=== PATIENT | male | born 1945 | race Caucasian/White ===

== ENCOUNTER → 2016-06-01 | Outpatient (CLI) | payer MEDICARE ==
--- NOTE | 2016-06-01 09:15 | CT ---
EXAMINATION TYPE: CT abdomen pelvis wo con DATE OF EXAM: 06/01/2016 9:03 AM HISTORY: Patient having right sided pain under ribs, history of renal stones but this feels alot diff erent. Pain radiates around to back CT DLP: 1504.1 mGycm. Automated Exposure Control for Dose Reduction was Utilized. TECHNIQUE: CT scan of the abdomen and pelvis is performed without oral or IV contrast. COMPARISON: NONE FINDINGS: Within the limitations of a non-contrast study, the following observations are made. LUNG BASES: Heart size is mildly enlarged. There is partial visualization of right-sided pacemaker/de fibrillator device. LIVER/GB: Liver is diffusely low dense consistent with fatty infiltration. PANCREAS: There is some fat replaced atrophy of the pancreas noted at the head and uncinate process l evel. SPLEEN: Spleen is enlarged measuring 14.9 cm in long axis on axial image 27. 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 KIDNEYS: There is exophytic 3.1 cm low dense lesion laterally lower pole level right kidney Hounsfiel d units average between 10 and 20, suspect simple cyst, this can be confirmed with renal ultrasound d esired. No renal stones or hydronephrosis is evident bilaterally on current study. BOWEL: Evaluation of bowel is slightly suboptimal due to lack of enteric contrast. There is no suspic ious small or large bowel dilatation seen. Appendix appears somewhat truncated but not suspiciously d ilated or with surrounding inflammatory change. No significant diverticulosis or diverticulitis is se en. GENITAL ORGANS: No gross abnormality seen. LYMPH NODES: No greater than 1cm abdominal or pelvic lymph nodes are appreciated. OSSEOUS STRUCTURES: There is moderate disc space narrowing with endplate sclerosis and spurring at L3 -L4 level. Posterior spur disc complex effaces anterior thecal sac at this level. Some facet arthropa thy and disc herniations contribute to spinal canal effacement at L4-L5 level also. Focus of air bila teral sacroiliac joints are noted. OTHER: There is mild to moderate calcified atherosclerotic change of aorta and branch vessels. Mild s oft tissue anasarca or subcutaneous edema seen at level of the pelvis and thighs. IMPRESSION: No renal stones or hydronephrosis is seen bilaterally. No significant acute finding is se en to account for patient's symptoms. Other findings are noted as detailed above
== END | disposition home or self-care (01) ==
LOC: RADCTMAIN 08:44
PROVIDERS: ATTEND Internal Medicine Geriatric Medicine
DX: N20.0 Calculus of kidney (principal)
CPT/HCPCS: 74176

== ENCOUNTER 2017-03-14 15:48 | Emergency (ER) | payer MEDICARE ==
[2017-03-14 16:14] VITALS: PULSE 72
--- NOTE | 2017-03-14 16:39 | ED ---
General Adult HPI - General Chief complaint: Extremity Injury, Lower Stated complaint: [facility]Poss [facility] Time Seen by Provider: 03/14/17 16:16 Source: patient, family, RN notes reviewed Mode of arrival: wheelchair - History of Present Illness Initial comments: 71-year-old male presents to the emergency department with a chief complaint of bilateral lower extremity pain. Patient states that in the morning or at rest his legs. No pain when he gets up and starts walking by noon he can't walk anymore due to his pain. He's been to multiple doctors and specialist with the [facility] today and they sent him here to rule out a blood clot. He states that pain still he has no pain but if he went to stand up and walk around he would have pain. He denies any falls traumas or injuries. He states he did have some swelling to the left leg yesterday and over the past 2 days that has gone down at this time. He's concerned due to his continued pain he feels like he is going to all these places and no one has figured it out.Patient denies any recent fever, chills, shortness of breath, chest pain, back pain, abdominal pain , nausea vomiting, numbness or tingling, dysuria or hematuria, constipation or diarrhea, headaches or visual changes, or any other current symptoms. - Related Data Home Medications Medication Instructions Recorded Confirmed Calcium Carbonate/Vitamin D3 1 tab PO BID 12/09/14 03/14/17 [Calcium 600 + Vit D Tablet] Insulin Glargine,Hum.rec.anlog 60 unit SQ HS 12/09/14 03/14/17 [Lantus Solostar] Metoprolol Tartrate [Lopressor] 100 mg PO BID 12/09/14 03/14/17 Omeprazole [PriLOSEC] 20 mg PO AC-BRKFST 12/09/14 03/14/17 glipiZIDE [Glucotrol] 10 mg PO AC-BID 12/09/14 03/14/17 amLODIPine [Norvasc] 5 mg PO DAILY 12/31/14 03/14/17 Aspirin [Adult Low Dose Aspirin EC] 81 mg PO BID 05/04/15 03/14/17 Clopidogrel [Plavix] 75 mg PO DAILY 05/04/15 03/14/17 Allopurinol [Zyloprim] 300 mg PO DAILY 02/06/16 03/14/17 Furosemide [Lasix] 40 mg PO DAILY 02/06/16 03/14/17 Isosorbide Mononitrate ER [Imdur] 30 mg PO DAILY 02/06/16 03/14/17 Adalimumab [Humira Pen] 40 mg SQ Q14D 03/14/17 03/14/17 Atorvastatin [Lipitor] 40 mg PO HS 03/14/17 03/14/17 Hydrochlorothiazide 12.5 mg PO DAILY 03/14/17 03/14/17 Insulin Aspart [NovoLOG Flexpen] See Protocol SQ AC-TID 03/14/17 03/14/17 Losartan [Cozaar] 50 mg PO DAILY 03/14/17 03/14/17 metFORMIN HCL 1,000 mg PO BID 03/14/17 03/14/17 methylPREDNISolone Dose Pack See Taper PO DAILY 03/14/17 03/14/17 [Medrol Dose Pack] Allergies Allergy/AdvReac Type Severity Reaction Status Date / Time Sulfa (Sulfonamide AdvReac Rapid Verified 03/14/17 16:31 Antibiotics) Heart Rate/Dyspnea Review of Systems ROS Statement: Those systems with pertinent positive or pertinent negative responses have been documented in the HPI. ROS Other: All systems not noted in ROS Statement are negative. Past Medical History Past Medical History: Asthma, Coronary Artery Disease (CAD), Chest Pain / Angina , Heart Failure, COPD, CVA/TIA, Diabetes Mellitus, Eye Disorder, GERD/Reflux, Hyperlipidemia, Hypertension, Myocardial Infarction ([place]), Prostate Disorder, Rheumatoid Arthritis (RA), Sleep Apnea/CPAP/BIPAP Additional Past Medical History / Comment(s): SUDDEN 2010-REVIVED AND DEFIBRILLATOR. GOUT. STROKE BEHIND LT EYE. KIDNEY STONES. "sluggish liver". anemia, BPH. [place] x 4 , GEts choking spells when eating. "Blood clot outside of my heart", BELLS PALSY Last Myocardial Infarction Date:: 12/2014 History of Any Multi-Drug Resistant Organisms: None Reported Past Surgical History: Adenoidectomy, AICD, Heart Catheterization, Heart Catheterization With Stent, Orthopedic Surgery, Tonsillectomy Additional Past Surgical History / Comment(s): BRIAN CARPAL TUNNEL, LT ROTATOR CUFF. 4 CARDIAC STENTS Past Anesthesia/Blood Transfusion Reactions: No Reported Reaction Date of Last Stent Placement:: 12/2014 Type of Cardiac Device: AICD Device Placement Date:: 08/2010 Past Psychological History: No Psychological Hx Reported Smoking Status: Never smoker Past Alcohol Use History: None Reported Past Drug Use History: None Reported - Past Family History Father Family Medical History: Coronary Artery Disease (CAD) Additional Family Medical History / Comment(s): TRIPLE BYPASS Mother Family Medical History: Cancer, Pulmonary Embolus Additional Family Medical History / Comment(s): ENDOMETRIAL CANCER Daughter(s) Family Medical History: Cancer, Pulmonary Embolus General Exam - General Exam Comments Initial Comments: General: The patient is awake and alert, in no distress, and does not appear acutely ill. Neck: The neck is supple, there is no tenderness. Cardiovascular: There is a regular rate and rhythm. No murmur, rub or gallop is appreciated. Respiratory: Lungs are clear to auscultation, respirations are non-labored, breath sounds are equal. No wheezes, stridor, rales, or rhonchi. Musculoskeletal: Sensation intact with 2+ pulses throughout bilateral lower x- ray. Patient sensation is intact. Some tenderness with patient of the left posterior calf. Neurological: CN II-XII intact, There are no obvious motor or sensory deficits. Coordination appears grossly intact. Speech is normal. Skin: Skin is warm and dry and no rashes or lesions are noted. Psychiatric: Normal mood and affect. Course Vital Signs 03/14/17 16:08 Temperature 98 F Pulse Rate 72 Respiratory 18 Rate Blood Pressure 126/62 O2 Sat by Pulse 96 Oximetry Medical Decision Making - Medical Decision Making 71-year-old [facility]. At this time patient's ultrasound is reviewed that does not show any blood clots. Patient does have 2+ pulses to bilateral extremity. We did discuss that there is some suspicion for possible PVD causing his claudication. We did discuss needs follow-up with his doctor for this. We discussed return parameters all the questions. They stated the Saul management with this plan. This time they will be discharged. - Radiology Data Radiology results: report reviewed, image reviewed Disposition Clinical Impression: Claudication Disposition: HOME SELF-CARE Condition: Stable Instructions: Peripheral Vascular Disease (ED) Additional Instructions: Please use medication as discussed. Please follow up with family doctor if symptoms have not improved over the next two days. Please return to the emergency room if your symptoms increase or worsen or for any other concerns. Referrals: Erasmo Guevara MD [Primary Care Provider] - 1-2 days Time of Disposition: 17:10
--- NOTE | 2017-03-14 17:00 | US ---
EXAMINATION TYPE: US venous doppler duplex LE LT DATE OF EXAM: 03/14/2017 4:49 PM COMPARISON: NONE CLINICAL HISTORY: 71-year-old male with left leg pain. SIDE PERFORMED: Left TECHNIQUE: The lower extremity deep venous system is examined utilizing real time linear array sonog tato with graded compression, doppler sonography and color-flow sonography. FINDINGS: VESSELS IMAGED: External Iliac Vein (EIV) Common Femoral Vein Deep Femoral Vein Greater Saphenous Vein * Femoral Vein Popliteal Vein Small Saphenous Vein * Proximal Calf Veins (* superficial vessels) Left Leg: Negative for DVT IMPRESSION: No evidence for DVT within the left lower extremity imaged from the groin to the upper calf.
[2017-03-14 17:30] VITALS: BP 130/66; RESP 12; TEMP 97.3
== END 2017-03-14 17:34 | disposition home or self-care (01) ==
LOC: EC 15:48
DX: I73.9 Peripheral vascular disease, unspecified (principal); M79.661 Pain in right lower leg; J45.909 Unspecified asthma, uncomplicated; E11.59 Type 2 diabetes mellitus with other circulatory complications; I25.10 Atherosclerotic heart disease of native coronary artery without angina pectoris; I11.0 Hypertensive heart disease with heart failure; I50.9 Heart failure, unspecified; K21.9 Gastro-esophageal reflux disease without esophagitis; I25.2 Old myocardial infarction; M06.9 Rheumatoid arthritis, unspecified; E78.5 Hyperlipidemia, unspecified; M10.9 Gout, unspecified; Z79.02 Long term (current) use of antithrombotics/antiplatelets; Z79.4 Long term (current) use of insulin; Z79.52 Long term (current) use of systemic steroids; Z79.899 Other long term (current) drug therapy; Z79.82 Long term (current) use of aspirin; Z88.2 Allergy status to sulfonamides; Z86.73 Personal history of transient ischemic attack (TIA), and cerebral infarction without residual deficits; Z95.810 Presence of automatic (implantable) cardiac defibrillator; Z95.5 Presence of coronary angioplasty implant and graft
CPT/HCPCS: 99283

== ENCOUNTER → 2017-10-14 | Outpatient (CLI) | payer MEDICARE ==
[2017-10-14 08:58] LABS: HCT 40.3 % (39.0-53.0); HGB 13.6 gm/dL (13.0-17.5); MCH 30.4 pg (25.0-35.0); MCHC 33.8 g/dL (31.0-37.0); Mean Platelet Volume 7.6; Platelet Count 109 k/uL (150-450); RBC 4.48 m/uL (4.30-5.90); RDW 15.4 % (11.5-15.5)
[2017-10-14 09:02] LABS: INR 1.1 (<1.2); Prothrombin Time 10.4 sec (9.0-12.0)
[2017-10-14 09:34] LABS: Calcium 9.5 mg/dL (8.4-10.2); Potassium 4.2 mmol/L (3.5-5.1)
[2017-10-15 21:09] LABS: Hemoglobin A1C 8.8 % (4.0-6.0)
== END | disposition home or self-care (01) ==
LOC: LABWHC1 08:09
PROVIDERS: ATTEND Orthopaedic Surgery Adult Reconstructive Orthopaedic Surgery
DX: Z01.89 Encounter for other specified special examinations (principal)
CPT/HCPCS: 36415; 80048; 83036; 85027; 85610; 87070

== ENCOUNTER → 2017-11-15 | Outpatient (CLI) | payer MEDICARE ==
[2017-11-15 13:17] LABS: Anisocytosis Slight; HCT 38.6 % (39.0-53.0); HGB 12.8 gm/dL (13.0-17.5); MCH 30.4 pg (25.0-35.0); MCHC 33.3 g/dL (31.0-37.0); MCV 91.2 fL (80.0-100.0); Mean Platelet Volume 7.5; Platelet Count 124 k/uL (150-450); RBC 4.23 m/uL (4.30-5.90); WBC 7.4 k/uL (3.8-10.6)
[2017-11-15 13:30] LABS: Calcium 9.6 mg/dL (8.4-10.2); Potassium 4.7 mmol/L (3.5-5.1)
== END | disposition home or self-care (01) ==
LOC: LABWHC1 12:29
PROVIDERS: ATTEND Internal Medicine
DX: I50.9 Heart failure, unspecified (principal); I25.10 Atherosclerotic heart disease of native coronary artery without angina pectoris
CPT/HCPCS: 36415; 80048; 85027

== ENCOUNTER 2018-01-01 20:54 | Emergency (ER) | payer MEDICARE ==
[2018-01-01] MEDS ORDERED: PIPERACILLIN-TAZOBACTAM 3.375 GM in DEXTROSE/WATER 1 50ML.BAG IVPB STA (21:23)
[2018-01-01] MEDS ORDERED: ACETAMINOPHEN TAB 500 MG TAB PO STA (21:23)
[2018-01-01] MEDS ORDERED: VANCOMYCIN IV PER PHARMACY 1 EACH MISC MISCELLANE PRN (21:23)
--- NOTE | 2018-01-01 21:56 | ED ---
General Adult HPI - General Chief complaint: Weakness Stated complaint: Weakness, Fever Time Seen by Provider: 01/01/18 21:09 Source: patient, family Mode of arrival: EMS Limitations: no limitations, physical limitation - History of Present Illness Initial comments: 72 years old male comes in with a fever he is here is 1 or 3 and now he has a drainage from the left kidney he was operated back in September in [facility], his knee has been draining off and on since that today is quite red and has a purulent discharge. He denies any headache no neck stiffness no chest pain is now coughing up any phlegm no abdominal pain no frequency urgency dysuria no symptoms of TIA or CVA - Related Data Home Medications Medication Instructions Recorded Confirmed Calcium Carbonate/Vitamin D3 1 tab PO BID 12/09/14 01/01/18 [Calcium 600 + Vit D Tablet] Insulin Glargine,Hum.rec.anlog 65 unit SQ HS 12/09/14 01/01/18 [Lantus Solostar] Metoprolol Tartrate [Lopressor] 100 mg PO BID 12/09/14 01/01/18 Omeprazole [PriLOSEC] 20 mg PO DAILY 12/09/14 01/01/18 glipiZIDE [Glucotrol] 10 mg PO AC-BID 12/09/14 01/01/18 amLODIPine [Norvasc] 5 mg PO DAILY 12/31/14 01/01/18 Aspirin [Adult Low Dose Aspirin EC] 81 mg PO BID 05/04/15 01/01/18 Clopidogrel [Plavix] 75 mg PO DAILY 05/04/15 01/01/18 Allopurinol [Zyloprim] 300 mg PO DAILY 02/06/16 01/01/18 Furosemide [Lasix] 40 mg PO DAILY 02/06/16 01/01/18 Isosorbide Mononitrate ER [Imdur] 30 mg PO DAILY 02/06/16 01/01/18 Adalimumab [Humira Pen] 40 mg SQ Q14D 03/14/17 01/01/18 Atorvastatin [Lipitor] 40 mg PO HS 03/14/17 01/01/18 Hydrochlorothiazide 12.5 mg PO DAILY 03/14/17 01/01/18 Insulin Aspart [NovoLOG Flexpen] 7 units SQ AC-TID 03/14/17 01/01/18 Losartan [Cozaar] 50 mg PO DAILY 03/14/17 01/01/18 metFORMIN HCL 1,000 mg PO BID 03/14/17 01/01/18 Allergies Allergy/AdvReac Type Severity Reaction Status Date / Time Sulfa (Sulfonamide AdvReac Rapid Verified 01/01/18 21:05 Antibiotics) Heart Rate/Dyspnea Review of Systems ROS Statement: Those systems with pertinent positive or pertinent negative responses have been documented in the HPI. ROS Other: All systems not noted in ROS Statement are negative. Past Medical History Past Medical History: Asthma, Coronary Artery Disease (CAD), Chest Pain / Angina , Heart Failure, COPD, CVA/TIA, Diabetes Mellitus, Eye Disorder, GERD/Reflux, Hyperlipidemia, Hypertension, Myocardial Infarction ([place]), Prostate Disorder, Rheumatoid Arthritis (RA), Sleep Apnea/CPAP/BIPAP Additional Past Medical History / Comment(s): SUDDEN 2010-REVIVED AND DEFIBRILLATOR. GOUT. STROKE BEHIND LT EYE. KIDNEY STONES. "sluggish liver". anemia, BPH. [place] x 4 , GEts choking spells when eating. "Blood clot outside of my heart", BELLS PALSY Last Myocardial Infarction Date:: 12/2014 History of Any Multi-Drug Resistant Organisms: None Reported Past Surgical History: Adenoidectomy, AICD, Heart Catheterization, Heart Catheterization With Stent, Orthopedic Surgery, Tonsillectomy Additional Past Surgical History / Comment(s): BRIAN CARPAL TUNNEL, LT ROTATOR CUFF. 4 CARDIAC STENTS, (L) knee surgery. Past Anesthesia/Blood Transfusion Reactions: No Reported Reaction Date of Last Stent Placement:: 12/2014 Type of Cardiac Device: AICD Device Placement Date:: 08/2010 Past Psychological History: No Psychological Hx Reported Smoking Status: Never smoker Past Alcohol Use History: None Reported Past Drug Use History: None Reported - Past Family History Father Family Medical History: Coronary Artery Disease (CAD) Additional Family Medical History / Comment(s): TRIPLE BYPASS Mother Family Medical History: Cancer, Pulmonary Embolus Additional Family Medical History / Comment(s): ENDOMETRIAL CANCER Daughter(s) Family Medical History: Cancer, Pulmonary Embolus General Exam - General Exam Comments Initial Comments: General: The patient is awake and alert, in no distress, and does not appear acutely ill. Notice mild distress Skin: Skin is warm and dry and no rashes or lesions are noted. Eye: Pupils are equal, round and reactive to light, extra-ocular movements are intact; there is normal conjunctiva bilaterally. Ears, nose, mouth and throat: There are moist mucous membranes and no oral lesions. Neck: The neck is supple, there is no tenderness or JVD. Cardiovascular: There is a regular rate and rhythm. No murmur, rub or gallop is appreciated. Respiratory: To auscultation bilateral, no wheezing no rhonchi no distress respiratory rodriguez noticed Gastrointestinal: Soft, non-distended, non-tender abdomen without masses or organomegaly noted. There is no rebound or guarding present. Bowel sounds are unremarkable. Back: There is no tenderness to palpation in the midline. There is no obvious deformity. Musculoskeletal: Left knee has a scar from previous surgery, right over the patella there is purulent discharge oozing out and noticed about term at 10 cm diameter area of firm severe cellulitis over the patella Neurological: CN II-XII intact, Cranial nerves III through XII are intact. There are no obvious motor or sensory deficits. Coordination appears grossly intact. Speech is normal. Psychiatric: Cooperative, appropriate mood & affect, normal judgment. Limitations: no limitations, physical limitation Course Vital Signs 01/01/18 01/01/18 01/01/18 20:56 21:15 21:18 Temperature 102.9 F H Pulse Rate 100 Respiratory 18 20 20 Rate Blood Pressure 139/79 O2 Sat by Pulse 93 L Oximetry 01/01/18 01/01/18 01/02/18 21:23 23:03 00:00 Temperature 102.6 F H Pulse Rate 96 102 H 95 Respiratory 20 20 18 Rate Blood Pressure 132/66 140/68 O2 Sat by Pulse 99 99 99 Oximetry 72 years old male came in with high fever of 103 pulse 100 white count is 11.5 lactate is 2.6-6 is unremarkable urinalysis is unremarkable we did the CAT scan of the left knee as per radiology reading there is a question of either cellulitis or septic knee, these findings were discussed with the patient and the family had agreeable with a possible transfer to Hospital there surgery was done in [place]. I have paged Dr. Rodriguez at 12:30 AM who is covering Dr. Raj lal, waiting to hear back from him. Dr. lal callback at1:23 AM and advised to transfer the patient down to the ER resume the care over there EKG Findings - EKG Comments: EKG Findings:: EKGs ALLERGIES sinus ventricular rate is 92 VT interval is 178 QRS duration is 16 QT/QTC 346/332 review of this EKG does not reveal any ST elevation or ST depression Medical Decision Making - Lab Data Result diagrams: 01/01/18 21:00 01/01/18 21:00 Lab Results 01/01/18 01/01/18 01/01/18 Range/Units 21:00 21:00 21:00 WBC 11.5 H (3.8-10.6) k/uL RBC 4.00 L (4.30-5.90) m/uL Hgb 12.0 L (13.0-17.5) gm/dL Hct 35.6 L (39.0-53.0) % MCV 89.0 (80.0-100.0) fL MCH 29.9 (25.0-35.0) pg MCHC 33.5 (31.0-37.0) g/dL RDW 15.3 (11.5-15.5) % Plt Count 102 L (150-450) k/uL Neutrophils % 86 % Lymphocytes % 6 % Monocytes % 6 % Eosinophils % 1 % Basophils % 0 % Neutrophils # 9.9 H (1.3-7.7) k/uL Lymphocytes # 0.7 L (1.0-4.8) k/uL Monocytes # 0.7 (0-1.0) k/uL Eosinophils # 0.1 (0-0.7) k/uL Basophils # 0.0 (0-0.2) k/uL PT (9.0-12.0) sec INR (<1.2) APTT (22.0-30.0) sec Sodium 134 L (137-145) mmol/L Potassium 3.6 (3.5-5.1) mmol/L Chloride 98 (98-107) mmol/L Carbon Dioxide 26 (22-30) mmol/L Anion Gap 10 mmol/L BUN 22 H (9-20) mg/dL Creatinine 1.10 (0.66-1.25) mg/dL Est GFR (CKD-EPI)AfAm 78 (>60 ml/min/1.73 sqM) Est GFR (CKD-EPI)NonAf 67 (>60 ml/min/1.73 sqM) Glucose 189 H (74-99) mg/dL Lactic Ac Sepsis Rflx Plasma Lactic Acid Ameya 2.6 H* (0.7-2.0) mmol/L Calcium 9.0 (8.4-10.2) mg/dL Total Bilirubin 1.8 H (0.2-1.3) mg/dL AST 22 (17-59) U/L ALT 39 (21-72) U/L Alkaline Phosphatase 59 (38-126) U/L Total Protein 6.2 L (6.3-8.2) g/dL Albumin 3.7 (3.5-5.0) g/dL Urine Color Urine Appearance (Clear) Urine pH (5.0-8.0) Ur Specific Terry (1.001-1.035) Urine Protein (Negative) Urine Glucose (UA) (Negative) Urine Ketones (Negative) Urine Blood (Negative) Urine Nitrite (Negative) Urine Bilirubin (Negative) Urine Urobilinogen (<2.0) mg/dL Ur Leukocyte Esterase (Negative) 01/01/18 01/01/18 01/01/18 Range/Units 21:00 22:12 23:00 WBC (3.8-10.6) k/uL RBC (4.30-5.90) m/uL Hgb (13.0-17.5) gm/dL Hct (39.0-53.0) % MCV (80.0-100.0) fL MCH (25.0-35.0) pg MCHC (31.0-37.0) g/dL RDW (11.5-15.5) % Plt Count (150-450) k/uL Neutrophils % % Lymphocytes % % Monocytes % % Eosinophils % % Basophils % % Neutrophils # (1.3-7.7) k/uL Lymphocytes # (1.0-4.8) k/uL Monocytes # (0-1.0) k/uL Eosinophils # (0-0.7) k/uL Basophils # (0-0.2) k/uL PT 11.7 (9.0-12.0) sec INR 1.2 H (<1.2) APTT 32.5 H (22.0-30.0) sec Sodium (137-145) mmol/L Potassium (3.5-5.1) mmol/L Chloride (98-107) mmol/L Carbon Dioxide (22-30) mmol/L Anion Gap mmol/L BUN (9-20) mg/dL Creatinine (0.66-1.25) mg/dL Est GFR (CKD-EPI)AfAm (>60 ml/min/1.73 sqM) Est GFR (CKD-EPI)NonAf (>60 ml/min/1.73 sqM) Glucose (74-99) mg/dL Lactic Ac Sepsis Rflx Y Plasma Lactic Acid Ameya (0.7-2.0) mmol/L Calcium (8.4-10.2) mg/dL Total Bilirubin (0.2-1.3) mg/dL AST (17-59) U/L ALT (21-72) U/L Alkaline Phosphatase (38-126) U/L Total Protein (6.3-8.2) g/dL Albumin (3.5-5.0) g/dL Urine Color Yellow Urine Appearance Clear (Clear) Urine pH 5.0 (5.0-8.0) Ur Specific Terry 1.013 (1.001-1.035) Urine Protein Trace H (Negative) Urine Glucose (UA) Negative (Negative) Urine Ketones Negative (Negative) Urine Blood Negative (Negative) Urine Nitrite Negative (Negative) Urine Bilirubin Negative (Negative) Urine Urobilinogen <2.0 (<2.0) mg/dL Ur Leukocyte Esterase Negative (Negative) Disposition Clinical Impression: Fever, Cellulitis, Septic arthritis of knee Disposition: OTHER INSTITUTION NOT DEFINED Is patient prescribed a controlled substance at d/c from ED?: No Referrals: Erasmo Guevara MD [Primary Care Provider] - 1-2 days - Out of Hospital Transfer - Req. Specs Out of Hospital Transfer - Requested Specifics: Other Emergency Center (patient will be transfered to [facility], accepting physician is Dr. Gramajo)
[2018-01-01] MEDS ORDERED: VANCOMYCIN 1,750 MG in SODIUM CHLORIDE 0.9% 500 ML IVPB ONE (22:00)
[2018-01-01 22:01] LABS: INR 1.2 (<1.2); Partial Thromboplastin Time 32.5 sec (22.0-30.0); Prothrombin Time 11.7 sec (9.0-12.0)
[2018-01-01 22:07] LABS: Albumin 3.7 g/dL (3.5-5.0); Potassium 3.6 mmol/L (3.5-5.1); Total Bilirubin 1.8 mg/dL (0.2-1.3); Total Protein 6.2 g/dL (6.3-8.2)
[2018-01-01] MEDS: SODIUM CHLORIDE 0.9% 500 ML IV SCH (22:10)
[2018-01-01 22:12] LABS: Basophils % (A) 0 %; Eosinophils # (A) 0.1 k/uL (0-0.7); Eosinophils % (A) 1 %; HCT 35.6 % (39.0-53.0); Lymphocytes # (A) 0.7 k/uL (1.0-4.8); Lymphocytes % (A) 6 %; MCH 29.9 pg (25.0-35.0); MCHC 33.5 g/dL (31.0-37.0); Mean Platelet Volume 7.4; Monocytes # (A) 0.7 k/uL (0-1.0); Monocytes % (A) 6 %; Neutrophils # (A) 9.9 k/uL (1.3-7.7); Neutrophils % (A) 86 %; Platelet Count 102 k/uL (150-450); RDW 15.3 % (11.5-15.5); WBC 11.5 k/uL (3.8-10.6)
--- NOTE | 2018-01-01 22:36 | XR ---
EXAMINATION TYPE: XR chest 1V portable DATE OF EXAM: 01/01/2018 COMPARISON: 12/09/2014 HISTORY: Fever and weakness TECHNIQUE: Single frontal view of the chest is obtained. FINDINGS: Heart is enlarged. There is coarsening of interstitial pulmonary markings. There is no tommy ss heart failure. Costophrenic angles are clear. There is left axillary pacemaker with the lead tip o collette the right ventricle. IMPRESSION: Mild pulmonary fibrosis. No heart failure. Lung markings are increased compared to old e xam.
[2018-01-01 23:15] LABS: Appearance,Urine Clear (Clear); Bilirubin,Urine Negative (Negative); Blood,Urine Negative (Negative); Color,Urine Yellow; Glucose,Urine (UA) Negative (Negative); Ketones,Urine Negative (Negative); Leukocyte Esterase,Urine Negative (Negative); Nitrite,Urine Negative (Negative); Protein,Urine Trace (Negative); Specific Gravity,Urine 1.013 (1.001-1.035); Urobilinogen,Urine <2.0 mg/dL (<2.0)
--- NOTE | 2018-01-01 23:57 | CT ---
EXAMINATION TYPE: CT knee LT wo con DATE OF EXAM: 01/01/2018 COMPARISON: None HISTORY: Weakness, fever, non healing wound on left knee CT DLP: 429.5 mGycm Automated exposure control for dose reduction was used. FINDINGS: Multiple axial sections were obtained from the distal femur to the proximal tibia with no contrast. There is prosthesis in the medial compartment of the knee. There is some calcification of the lateral collateral ligament. There is moderate knee joint effusion. There are a few air bubbles in the knee joint effusion. The detail is limited somewhat by the metal artifact. I see no displaced fracture. I see no focal bone destruction. The patella is intact. There is spurring at the tibial tubercle. IMPRESSION: KNEE PROSTHESIS. MODERATE SIZE KNEE JOINT EFFUSION. THERE IS ALSO ANTERIOR SOFT TISSUE SWELLING ANTER IOR TO THE PATELLA AND PROXIMAL TIBIA WITH SOFT TISSUE AIR BUBBLES. Septic arthritis and anterior sig nificant cellulitis should be highly considered.
[2018-01-02] MEDS ORDERED: MORPHINE SULFATE 4 MG/ML SYRINGE IVP STA (01:44)
[2018-01-02 02:27] LABS: Appearance,BF Bloody; Color,BF Red; Nucleated Cells, Body Fluid 2500 /uL; RBC, Body Fluid 309000 /uL
[2018-01-02 02:32] VITALS: BP 140/85; PULSE 99; RESP 16; TEMP 101
[2018-01-02 02:36] LABS: Mononuclear WBC,Body Fluid 33 %; Polynuclear WBC,Body Fluid 67 %; Total Cells Counted,Body Fluid 100
[2018-01-02] MEDS ORDERED: VANCOMYCIN 1,750 MG in SODIUM CHLORIDE 0.9% 500 ML IVPB SCH (14:00)
== END 2018-01-02 02:25 | disposition other institution (70) ==
LOC: EC 20:54
DX: M00.862 Arthritis due to other bacteria, left knee (principal); L03.116 Cellulitis of left lower limb; J45.909 Unspecified asthma, uncomplicated; I25.10 Atherosclerotic heart disease of native coronary artery without angina pectoris; I11.0 Hypertensive heart disease with heart failure; I50.9 Heart failure, unspecified; J44.9 Chronic obstructive pulmonary disease, unspecified; E11.9 Type 2 diabetes mellitus without complications; I25.2 Old myocardial infarction; E78.5 Hyperlipidemia, unspecified; M06.9 Rheumatoid arthritis, unspecified; M10.9 Gout, unspecified; G47.30 Sleep apnea, unspecified; Z99.89 Dependence on other enabling machines and devices; Z86.73 Personal history of transient ischemic attack (TIA), and cerebral infarction without residual deficits; Z95.810 Presence of automatic (implantable) cardiac defibrillator; Z95.5 Presence of coronary angioplasty implant and graft; Z98.890 Other specified postprocedural states; Z79.4 Long term (current) use of insulin; Z79.82 Long term (current) use of aspirin; Z79.899 Other long term (current) drug therapy; Z88.2 Allergy status to sulfonamides
CPT/HCPCS: 36415; 93005; 80053; 89050; 83605; 85025; 85610; 85730; 81003; 87040; 87070; 87086; 87205; 71045; 73700; 99285; 96365; 96366 ×3; 96375; J3370; J2270; J2543

== ENCOUNTER → 2018-01-16 | Outpatient (CLI) | payer MEDICARE ==
--- NOTE | 2018-01-16 15:31 | US ---
EXAMINATION TYPE: US venous doppler duplex LE DATE OF EXAM: 01/16/2018 3:22 PM COMPARISON: NONE CLINICAL HISTORY: M79.605 Pain in LEFT leg; r/o deep vein. SIDE PERFORMED: Left TECHNIQUE: The lower extremity deep venous system is examined utilizing real time linear array sonog tato with graded compression, doppler sonography and color-flow sonography. VESSELS IMAGED: External Iliac Vein (EIV) Common Femoral Vein Deep Femoral Vein Greater Saphenous Vein * Femoral Vein Popliteal Vein Proximal Calf Veins (* superficial vessels) Left Leg: Negative for DVT IMPRESSION: 1. Left lower extremity ultrasound negative for deep venous thrombosis.
== END | disposition home or self-care (01) ==
LOC: RADUSWWP 14:18
PROVIDERS: ATTEND Internal Medicine
DX: M79.605 Pain in left leg (principal); Z88.2 Allergy status to sulfonamides

== ENCOUNTER → 2018-06-16 | Outpatient (CLI) | payer MEDICARE ==
[2018-06-16 14:56] LABS: Basophils # (A) 0.1 k/uL (0-0.2); Basophils % (A) 1 %; Eosinophils # (A) 1.5 k/uL (0-0.7); Eosinophils % (A) 15 %; HCT 39.6 % (39.0-53.0); HGB 13.5 gm/dL (13.0-17.5); Lymphocytes # (A) 1.8 k/uL (1.0-4.8); Lymphocytes % (A) 17 %; MCV 85.2 fL (80.0-100.0); Monocytes # (A) 0.5 k/uL (0-1.0); Monocytes % (A) 5 %; Neutrophils # (A) 6.1 k/uL (1.3-7.7); Neutrophils % (A) 60 %; Platelet Count 139 k/uL (150-450); RBC 4.65 m/uL (4.30-5.90); RDW 14.4 % (11.5-15.5); WBC 10.1 k/uL (3.8-10.6)
[2018-06-16 18:46] LABS: Iron Saturation 23.22 (15.00-50.00)
[2018-06-16 18:49] LABS: Anion Gap 10.6 mmol/L (4.00-12.00); Calcium 9.9 mg/dL (8.7-10.3); Carbon Dioxide 33.4 mmol/L (21.6-31.8); Phosphorus 4.4 mg/dL (2.4-5.1); Potassium 4.1 mmol/L (3.5-5.5)
[2018-06-16 18:55] LABS: Vitamin D 25 Hydroxy 23.7 ng/mL (30.0-100.0)
[2018-06-16 19:03] LABS: Parathyroid Hormone Intact 100.6 pg/mL (14.0-72.0)
[2018-06-16 22:25] LABS: Total Protein,Urine Random 4.1 mg/dL (0.0-13.5)
== END ==
LOC: LABWHC1 13:28
PROVIDERS: ATTEND Internal Medicine Nephrology
DX: N17.9 Acute kidney failure, unspecified (principal); N18.3 Chronic kidney disease, stage 3 (moderate); I12.9 Hypertensive chronic kidney disease with stage 1 through stage 4 chronic kidney disease, or unspecified chronic kidney disease; E66.9 Obesity, unspecified; M00.9 Pyogenic arthritis, unspecified; I50.9 Heart failure, unspecified; E11.22 Type 2 diabetes mellitus with diabetic chronic kidney disease; E61.1 Iron deficiency
CPT/HCPCS: 36415; 80048; 82306; 82570; 82728; 83540; 83550; 83735; 83970; 84100; 84156; 84466; 85025

== ENCOUNTER → 2019-03-23 | Outpatient (CLI) | payer MEDICARE ==
[2019-03-23 11:01] LABS: HCT 37.5 % (39.0-53.0); HGB 12.7 gm/dL (13.0-17.5); MCH 29.7 pg (25.0-35.0); MCV 87.4 fL (80.0-100.0); Mean Platelet Volume 6.3; Platelet Count 147 k/uL (150-450); Poikilocytosis Slight; RBC 4.29 m/uL (4.30-5.90); RDW 15.5 % (11.5-15.5); WBC 6.3 k/uL (3.8-10.6)
[2019-03-23 11:02] LABS: Potassium 4.4 mmol/L (3.5-5.1)
== END | disposition home or self-care (01) ==
LOC: LABWHC1 09:14
PROVIDERS: ATTEND Internal Medicine Interventional Cardiology
DX: Z01.812 Encounter for preprocedural laboratory examination (principal); I25.118 Atherosclerotic heart disease of native coronary artery with other forms of angina pectoris
CPT/HCPCS: 36415; 80051; 82565; 84520; 85027

== ENCOUNTER 2019-03-24 06:49 | Inpatient (IN) | payer MEDICARE ==
[~2019-03-24 06:49] MED LIST: ALPRAZolam 0.25 MG TAB PO PRN; ALPRAZolam 0.5 MG TAB PO PRN; SODIUM CHLORIDE 0.9% 1,000 ML in EMPTY BAG 1 BAG IV ONE
[2019-03-24] MEDS ORDERED: ASPIRIN 325 MG TAB PO ONE (07:00)
[2019-03-24] MEDS ORDERED: ATORVASTATIN 80 MG TAB PO ONE (07:00)
[2019-03-24 07:20] LABS: Glucose,Whole Blood 194 mg/dL (75-99)
[2019-03-24] MEDS ORDERED: METOPROLOL TARTRATE 50 MG TAB PO STA (07:29)
[2019-03-24] MEDS ORDERED: LOSARTAN 50 MG TAB PO STA (07:30)
[2019-03-24] MEDS ORDERED: ISOSORBIDE MONONITRATE ER 30 MG TAB.ER.24H PO STA (07:31)
[2019-03-24] MEDS ORDERED: VERAPAMIL 2.5 MG/ML 2 ML AMP ONE (13:03)
[2019-03-24] MEDS ORDERED: LIDOCAINE 1% INJ 10MG/ML (20 ML MDV) ONE (13:03)
[2019-03-24] MEDS ORDERED: HEPARIN SODIUM 1,000 UN/ML (10ML VL) ONE (13:03)
[2019-03-24] MEDS: LIDOCAINE 1% INJ 10MG/ML (20 ML MDV) SQ ONE ×2 (13:17→13:21)
[2019-03-24] MEDS ORDERED: MIDAZOLAM 2 MG/2 ML VIAL IVP ONE ×2 (13:18)
[2019-03-24] MEDS: VERAPAMIL SYRINGE (5 MG/10 ML) INTRAARTER ONE ×2 (13:23→13:44)
[2019-03-24] MEDS ORDERED: VERAPAMIL SYRINGE (5 MG/10 ML) INTRAARTER ONE (13:23)
[2019-03-24] MEDS ORDERED: HEPARIN SODIUM 1,000 UN/ML (10ML VL) IV ONE (13:25)
[2019-03-24] MEDS ORDERED: IOPAMIDOL-370 125ML BTL INJ ONE (13:45)
--- NOTE | 2019-03-24 15:29 | P.GSCN ---
<Sushila Loo - Last Filed: 03/24/19 15:21> History of Present Illness Consult date: 03/24/19 Reason for Consult: Triple-vessel coronary artery disease, evaluate for coronary artery bypass graft surgery versus complex stenting Requesting physician: Suki Hinds History of present illness: This is a 73-year-old gentleman who follows on an outpatient basis with Dr. Guevara. He has a previous medical history of coronary artery disease and myocardial infarction with multiple stents placed to the RCA and LAD, V. fib arrest after stenting in 2010 with placement of Medtronic ICD, hypertension, hyperlipidemia, type 2 diabetes mellitus, chronic kidney disease, paroxysmal atrial fibrillation on chronic Eliquis for anticoagulation, COPD with chronic bronchitis, obstructive sleep apnea with home CPAP use, obesity, knee replacement with infection postoperatively, and family history of heart disease. Apparently throughout the summer he has noticed increasing shortness of breath. He was seen in the cardiology office in December 2018 and had a Lexiscan scan stress test which did not appear to demonstrate any ischemia. In the last 3-4 weeks he began to experience intermittent substernal chest pain with radiation to his arms. He denied any other aggravating or alleviating symptoms. He was recommended to undergo heart catheterization which was completed today and which demonstrated proximal LAD stenosis 60%, mid LAD stenosis 30%, circumflex stenosis 90%, and RCA stenosis 60%. No LV gram was performed. Dr. Parker from cardiothoracic surgery was consulted for recommendations for cardiac bypass surgery versus complex stenting. Review of Systems Review of systems was completed and was negative except as noted. - Cardiovascular Reports as per HPI, Reports chest pain, Reports decreased exercise tolerance, Reports dyspnea on exertion, Reports shortness of breath Past Medical History Past Medical History: Atrial Fibrillation, Asthma, Coronary Artery Disease (CAD), Chest Pain / Angina, Heart Failure, COPD, Diabetes Mellitus, GERD/Reflux, Hyperlipidemia, Hypertension, Myocardial Infarction (ME), Osteoarthritis (OA), Prostate Disorder, Pulmonary Embolus (PE), Renal Disease, Skin Disorder, Sleep Apnea/CPAP/BIPAP Additional Past Medical History / Comment(s): SUDDEN 2010-REVIVED AND DEFIBRILLATOR. GOUT. , PSORIASIS, MEDTRONIC AICD., STROKE BEHIND LT EYE. KIDNEY STONES. , STAGE 3 KIDNEY DISEASE., ANEMIA, BPH, ME x 4 , "Blood clot outside of my heart", BELLS PALSY, NEUROPATHY, STATES UNSTEADY GAIT- USES CANE PRN., USES C-PAP MACHINE, PSORIATIC ARTHRITIS, STATES EPISODE OF A-FIB AFTER KNEE SURGERY., STATES HE DROPPED WRENCH ON FOOT -HAS RED SPOT AND SOME PAIN., HX V-TACH., SEE CARDIOLOGY H & P. Last Myocardial Infarction Date:: 12/2014 History of Any Multi-Drug Resistant Organisms: None Reported Past Surgical History: Adenoidectomy, AICD, Heart Catheterization, Heart Catheterization With Stent, Orthopedic Surgery, Tonsillectomy Additional Past Surgical History / Comment(s): BRIAN CARPAL TUNNEL, LT ROTATOR CUFF. 4 CARDIAC STENTS, (L) knee surgery WITH SEPSIS AND 2ND SURGERY., MEDTRO JOE AICD Past Anesthesia/Blood Transfusion Reactions: No Reported Reaction Date of Last Stent Placement:: 12/2014 Type of Cardiac Device: AICD Device Placement Date:: 08/2010 Past Psychological History: Depression Smoking Status: Never smoker Past Alcohol Use History: None Reported Additional Past Alcohol Use History / Comment(s): . Past Drug Use History: None Reported - Past Family History Father Family Medical History: Coronary Artery Disease (CAD) Additional Family Medical History / Comment(s): TRIPLE BYPASS Mother Family Medical History: Cancer, Hypertension, Pulmonary Embolus Additional Family Medical History / Comment(s): ENDOMETRIAL CANCER Daughter(s) Family Medical History: Cancer, Pulmonary Embolus Medications and Allergies Home Medications Medication Instructions Recorded Confirmed Type Calcium Carbonate/Vitamin D3 1 tab PO BID 12/09/14 03/24/19 History [Calcium 600 + Vit D Tablet] Insulin Glargine,Hum.rec.anlog 56 unit SQ QAM 12/09/14 03/24/19 History [Lantus Solostar] Metoprolol Tartrate [Lopressor] 100 mg PO BID 12/09/14 03/24/19 History Omeprazole [PriLOSEC] 20 mg PO DAILY 12/09/14 03/24/19 History Furosemide [Lasix] 40 mg PO BID 02/06/16 03/24/19 History Isosorbide Mononitrate ER [Imdur] 30 mg PO BID 02/06/16 03/24/19 History Atorvastatin [Lipitor] 40 mg PO HS 03/14/17 03/24/19 History Hydrochlorothiazide 12.5 mg PO DAILY 03/14/17 03/24/19 History Insulin Aspart [NovoLOG Flexpen] 18 units SQ AC-TID 03/14/17 03/24/19 History Losartan [Cozaar] 50 mg PO DAILY 03/14/17 03/24/19 History Allopurinol [Zyloprim] 100 mg PO BID 03/20/19 03/24/19 History Apixaban [Eliquis] 2.5 mg PO BID 03/20/19 03/24/19 History Colchicine 0.6 mg PO DAILY 03/20/19 03/24/19 History Dulaglutide [Trulicity] 1.5 mg SQ WEEKLY 03/20/19 03/24/19 History Magnesium 400 mg PO DAILY 03/20/19 03/24/19 History Metoprolol Tartrate [Lopressor] 50 mg PO DAILY@1200 03/20/19 03/24/19 History Nitroglycerin Sl Tabs [Nitrostat] 0.4 mg SUBLINGUAL Q5M PRN 03/20/19 03/24/19 History Tamsulosin HCl [Flomax] 0.4 mg PO DAILY 03/20/19 03/24/19 History Turmeric Root Extract [Turmeric] 1,000 mg PO DAILY 03/20/19 03/24/19 History Allergies Allergy/AdvReac Type Severity Reaction Status Date / Time gabapentin AdvReac Unknown DREAMS, Verified 03/20/19 09:54 PERSONALITY CHANGES- ANGER Sulfa (Sulfonamide AdvReac Rapid Verified 03/20/19 09:53 Antibiotics) Heart Rate/Dyspnea Surgical - Exam Vital Signs Temp Pulse Resp BP Pulse Ox 98.1 F 96 16 136/69 96 03/24/19 07:15 03/24/19 07:15 03/24/19 07:15 03/24/19 07:15 03/24/19 07:15 - General well developed, well nourished, no distress, no pain, obese - Eyes PERRL, normal ocular movement - ENT no hearing loss - Neck no masses, no bruits, trachea midline - Respiratory Lungs sounds clear bilaterally. Respirations even, nonlabored. Currently on room air with oxygen saturation 98%. No chest wall deformities. No clinical or cyanosis present. - Cardiovascular S1, S2 present. Regular rate and rhythm, sinus rhythm on telemetry. Palpable peripheral pulses bilaterally. No edema present. No calf pain or tenderness noted. Right radial heart catheterization site without redness or drainage, T- Band in place. - Abdomen Abdomen: soft, non tender, bowel sounds - Genitourinary Deferred - Rectum Deferred - Integumentary Lower extremities with evidence of venous insufficiency no rash, no growths - Neurologic normal coordination, normal sensation - Musculoskeletal normal posture - Psychiatric oriented to time, oriented to person, oriented to place, speech is normal, memory intact Results - Labs Abnormal Lab Results - Last 24 Hours (Table) 03/24/19 Range/Units 07:17 POC Glucose (mg/dL) 194 H (75-99) mg/dL - Imaging Additional studies: Heart catheterization films reviewed with Dr. Hinds Assessment and Plan Assessment: 1. Triple-vessel coronary artery disease 2. History of coronary artery disease and myocardial infarction with multiple stents to the RCA and LAD 3. V. fib arrest after stenting in 2010 with placement of Medtronic ICD 4. Hypertension 5. Hyperlipidemia 6. Type 2 diabetes mellitus 7. Chronic kidney disease 8. Paroxysmal atrial fibrillation on chronic Eliquis for anticoagulation 9. COPD 10. SUSAN with home CPAP use 11. Obesity 12. Family history of heart disease Plan: The patient was seen and examined at the bedside. Chart/diagnostics were review ed. Heart catheterization films were reviewed with Dr. Hinds. Patient's information was sent to Dr. Parker who will see the patient tomorrow. The usual perioperative course for open-heart surgery was discussed in detail with the patient, risks and benefits were reviewed, all questions were answered. We will initiate preoperative testing. Based on those results we will calculate an STS risk score and discuss this with the patient. We recommend continuing to maximize medical therapy with statin, beta cely, nitrate, and ARB. Medical management of other comorbidities per primary care service. More recommendations to follow once testing has been completed. Thank you Dr. Hinds for this consult. We look forward to working with you in the care of your patient. Time with Patient: Greater than 30 <Remington Parker - Last Filed: 03/25/19 12:29> Surgical - Exam Vital Signs Temp Pulse Resp BP Pulse Ox 98.1 F 96 16 136/69 96 03/24/19 07:15 03/24/19 07:15 03/24/19 07:15 03/24/19 07:15 03/24/19 07:15 Results - Labs 03/25/19 06:42 03/25/19 06:42 Abnormal Lab Results - Last 24 Hours (Table) 03/24/19 03/24/19 03/25/19 Range/Units 16:40 20:27 06:33 RBC (4.30-5.90) m/uL Hgb (13.0-17.5) gm/dL Hct (39.0-53.0) % Plt Count (150-450) k/uL APTT (22.0-30.0) sec BUN (9-20) mg/dL Creatinine (0.66-1.25) mg/dL Glucose (74-99) mg/dL POC Glucose (mg/dL) 165 H 217 H 176 H (75-99) mg/dL Triglycerides (<150) mg/dL HDL Cholesterol (40-60) mg/dL 03/25/19 03/25/19 03/25/19 Range/Units 06:42 06:42 06:42 RBC 3.98 L (4.30-5.90) m/uL Hgb 11.9 L (13.0-17.5) gm/dL Hct 34.7 L (39.0-53.0) % Plt Count 104 L (150-450) k/uL APTT 32.4 H (22.0-30.0) sec BUN 33 H (9-20) mg/dL Creatinine 1.71 H (0.66-1.25) mg/dL Glucose 166 H (74-99) mg/dL POC Glucose (mg/dL) (75-99) mg/dL Triglycerides 366 H (<150) mg/dL HDL Cholesterol 21 L (40-60) mg/dL 03/25/19 Range/Units 11:41 RBC (4.30-5.90) m/uL Hgb (13.0-17.5) gm/dL Hct (39.0-53.0) % Plt Count (150-450) k/uL APTT (22.0-30.0) sec BUN (9-20) mg/dL Creatinine (0.66-1.25) mg/dL Glucose (74-99) mg/dL POC Glucose (mg/dL) 139 H (75-99) mg/dL Triglycerides (<150) mg/dL HDL Cholesterol (40-60) mg/dL Diabetes panel 03/25/19 Range/Units 06:42 Sodium 139 (137-145) mmol/L Potassium 4.2 (3.5-5.1) mmol/L Chloride 102 (98-107) mmol/L Carbon Dioxide 28 (22-30) mmol/L BUN 33 H (9-20) mg/dL Creatinine 1.71 H (0.66-1.25) mg/dL Glucose 166 H (74-99) mg/dL Calcium 9.6 (8.4-10.2) mg/dL AST 26 (17-59) U/L ALT 36 (21-72) U/L Alkaline Phosphatase 85 (38-126) U/L Total Protein 6.6 (6.3-8.2) g/dL Albumin 3.9 (3.5-5.0) g/dL Triglycerides 366 H (<150) mg/dL HDL Cholesterol 21 L (40-60) mg/dL Thyroid panel 03/25/19 Range/Units 06:42 TSH 2.440 (0.465-4.680) mIU/L Calcium panel 03/25/19 Range/Units 06:42 Calcium 9.6 (8.4-10.2) mg/dL Albumin 3.9 (3.5-5.0) g/dL Pituitary panel 03/25/19 Range/Units 06:42 Sodium 139 (137-145) mmol/L Potassium 4.2 (3.5-5.1) mmol/L Chloride 102 (98-107) mmol/L Carbon Dioxide 28 (22-30) mmol/L BUN 33 H (9-20) mg/dL Creatinine 1.71 H (0.66-1.25) mg/dL Glucose 166 H (74-99) mg/dL Calcium 9.6 (8.4-10.2) mg/dL TSH 2.440 (0.465-4.680) mIU/L Adrenal panel 03/25/19 Range/Units 06:42 Sodium 139 (137-145) mmol/L Potassium 4.2 (3.5-5.1) mmol/L Chloride 102 (98-107) mmol/L Carbon Dioxide 28 (22-30) mmol/L BUN 33 H (9-20) mg/dL Creatinine 1.71 H (0.66-1.25) mg/dL Glucose 166 H (74-99) mg/dL Calcium 9.6 (8.4-10.2) mg/dL Total Bilirubin 0.7 (0.2-1.3) mg/dL AST 26 (17-59) U/L ALT 36 (21-72) U/L Alkaline Phosphatase 85 (38-126) U/L Total Protein 6.6 (6.3-8.2) g/dL Albumin 3.9 (3.5-5.0) g/dL Assessment and Plan Plan: The patient was seen and examined. The history and physical findings were verified. I agree with the above assessment and plan. The patient is a 73-year-old male with a history of multiple medical problems including significant coronary artery disease status post multiple coronary stents in the past. He presents to the hospital now with intermittent chest pain and shortness of breath. Cardiac catheterization performed yesterday reveals a tight proximal circumflex artery lesion. There is also question of a proximal LAD lesion associated with a coronary stent. The films were reviewed with Dr. Hinds. He will plan on performing IVUS/FFR in the morning. If the LAD lesion proves to be significant, we will work him up for possible coronary artery bypass surgery. If the LAD lesion is not significant, then he will proceed with PCI to the circumflex artery. I did speak at length with both the patient and his at length today. All of their questions were answered. Additional recommendations will follow.
--- NOTE | 2019-03-24 15:42 | XR ---
EXAMINATION TYPE: XR chest 2V DATE OF EXAM: 03/24/2019 COMPARISON: 01/01/2018 HISTORY: Preoperative cardiac surgery assessment. TECHNIQUE: Frontal and lateral views of the chest are obtained. FINDINGS: There is no focal air space opacity, pleural effusion, or pneumothorax seen. Flattening o f the diaphragms on the lateral view indicates underlying COPD. The cardiac silhouette size is enlarg ed with single lead left-sided cardiac defibrillator. The osseous structures are intact. IMPRESSION: No acute cardiopulmonary process. Underlying COPD as there is flattening of the diaphrag ms on the lateral view.
[2019-03-24 16:47] LABS: Glucose,Whole Blood 165 mg/dL (75-99)
[2019-03-24] MEDS: SODIUM CHLORIDE 0.9% 1,000 ML IV SCH (16:58)
[2019-03-24] MEDS: INSULIN ASPART (NovoLOG) 100 UNIT/ML VIAL SQ SCH ×2 (16:59→21:12)
--- NOTE | 2019-03-24 17:14 | US ---
EXAMINATION TYPE: US carotid duplex BILAT DATE OF EXAM: 03/24/2019 COMPARISON: NONE CLINICAL HISTORY: Pre-Op Cardiac Surgery. pre op cardiac surgery EXAM MEASUREMENTS: RIGHT: Peak Systolic Velocity (PSV) cm/sec ----- Right CCA: 70.3 ----- Right ICA: 91.2 ----- Right ECA: 75.7 ICA/CCA ratio: 1.3 RIGHT: End Diastole cm/sec ----- Right CCA: 14.2 ----- Right ICA: 12.9 ----- Right ECA: 8.7 LEFT: Peak Systolic Velocity (PSV) cm/sec ----- Left CCA: 74.9 ----- Left ICA: 89.2 ----- Left ECA: 93.1 ICA/CCA ratio: 1.2 LEFT: End Diastole cm/sec ----- Left CCA: 18.0 ----- Left ICA: 19.3 ----- Left ECA: 7.6 VERTEBRALS (direction of flow): Right Vertebral: Antegrade Left Vertebral: Antegrade Rhythm: Normal IMPRESSION: MILD PLAQUE BILATERAL BIFURCATIONS, BUT NO SIGNIFICANT STENOSIS
[2019-03-24 20:28] LABS: Glucose,Whole Blood 217 mg/dL (75-99)
--- NOTE | 2019-03-24 20:52 | CC ---
CARDIAC CATHETERIZATION REPORT DATE OF SERVICE: 03/24/2019 PROCEDURE: Left heart catheterization and coronary angiography. PERFORMED BY: Dr. Tim Hinds. Moderate conscious sedation time was 37 minutes. CLINICAL INFORMATION: Mr. Rafal Muro is a 73-year-old obese gentleman with type 2 diabetes, hypertension, hyperlipidemia, degenerative joint disease, previous inferior AR with RCA occlusion and stenting. He has multivessel stenting and chronic CKD with a creatinine that runs in the range of 2.2. Because of significant symptoms of angina, I recommended coronary angiography after due discussion. He was brought in early, hydrated both orally and intravenously, and brought in for the procedure. PROCEDURE NOTE: Under local anesthesia and strict aseptic precautions, a 6-Omani introducer was placed in the right radial artery. Using initially a JR4 and a JL3.5, I performed coronary angiography. Using the same right catheter, I checked LV pressures. JL3.5 was insufficient; switched over to a JL4. LV gram was not performed but LV pressures were checked. CARDIAC CATHETERIZATION FINDINGS: Left ventricular end-diastolic pressure was 12 mmHg without any gradient across the aortic valve. CORONARY ANGIOGRAPHY FINDINGS: RIGHT CORONARY ARTERY: Very dominant vessel that was previously totally occluded with stents in the proximal and mid and also in the PLV branch performed a few years ago. Now patient has a 60% lesion in the proximal RCA. Distally after bifurcation PLV is larger, has minor diffuse disease, and the distal RCA that was stented is patent. The PDA branch is smaller, has no significant disease other than diffuse irregularities, but the ostium of the PDA has about a 50% narrowing. There is a stent in the distal RCA before bifurcation which is patent. Proximal RCA has about a 55% to 60% lesion. LEFT MAIN CORONARY ARTERY: Long patent vessel that immediately bifurcates into LAD and circumflex. Left main itself may not have significant disease. LEFT ANTERIOR DESCENDING CORONARY ARTERY: Proximal LAD that was stented seems to be patent, but just before the stented segment there is an eccentric area of narrowing of up to 60% to 65%. Beyond the stented segment, LAD is free of significant disease. It gives off a diagonal branch that has no significant disease, and both of these vessels run all the way, supplying a fair amount of myocardium. LAD proximally has about a 60% eccentric lesion, best seen in cranial projection. LEFT POSTERIOR CIRCUMFLEX CORONARY ARTERY: Nondominant vessel has an ostial lesion of about 90%, mid lesion of about 70%, and distally it continues as a large obtuse marginal branch which is graftable and free of significant disease. LEFT VENTRICULOGRAM was not performed. FINAL IMPRESSION: This patient has progression of disease with proximal RCA of about 60%, ostial circumflex 90%, mid circumflex 70%, and proximal LAD 60% just before the stented segment. The distal RCA was grafted, but both branches are of fair caliber. LV filling pressures are normal and there is no gradient across the aortic valve. LV gram was not performed. RECOMMENDATIONS: I am recommending that I will obtain a surgical opinion today and see if the surgeon feels the anatomy is significant. Given the calcification, previous stenting and renal failure, he is a high risk for both percutaneous as well as surgical intervention. I will await opinion from cardiac surgeon, and in the meantime I will hydrate him and check another renal function tomorrow. For now, we will pursue medical therapy, seek surgical opinion. If the surgeon feels that LAD lesions and RCA lesions are not significant, I will perform circumflex PCI. Otherwise he will be much better with multivessel bypass surgery with 2 grafts to the LAD, one graft to the circumflex and 2 grafts to the branches of RCA. Findings were discussed at length with the patient, and a copy of this will go to his primary care physician. Dr Guevara. [email or web address] / ANNA: [id number] /
[2019-03-24] MEDS ORDERED: INSULIN ASPART (NovoLOG) 100 UNIT/ML VIAL SQ SCH (21:00)
[2019-03-24] MEDS: CALCIUM CARB-VIT D 500MG-200UN 1 EACH TAB PO SCH (21:10)
[2019-03-24] MEDS: METOPROLOL TARTRATE 50 MG TAB PO SCH (21:11)
[2019-03-24] MEDS: ALLOPURINOL 100 MG TAB PO SCH (21:11)
[2019-03-25 03:51] LABS: Appearance,Urine Clear (Clear); Bilirubin,Urine Negative (Negative); Blood,Urine Negative (Negative); Color,Urine Light Yellow; Glucose,Urine (UA) Negative (Negative); Ketones,Urine Negative (Negative); Leukocyte Esterase,Urine Negative (Negative); Nitrite,Urine Negative (Negative); Protein,Urine Negative (Negative); Specific Gravity,Urine 1.015 (1.001-1.035); Urobilinogen,Urine <2.0 mg/dL (<2.0)
[2019-03-25] MEDS: SODIUM CHLORIDE 0.9% 1,000 ML IV SCH ×2 (05:16→16:54)
[2019-03-25 06:34] LABS: Glucose,Whole Blood 176 mg/dL (75-99)
[2019-03-25] MEDS: INSULIN ASPART (NovoLOG) 100 UNIT/ML VIAL SQ SCH ×4 (07:47→20:34)
[2019-03-25 07:48] LABS: INR 0.9 (<1.2); Partial Thromboplastin Time 32.4 sec (22.0-30.0); Prothrombin Time 10.1 sec (9.0-12.0)
[2019-03-25] MEDS: PANTOPRAZOLE 40 MG TABLET PO SCH (07:48)
[2019-03-25] MEDS: ISOSORBIDE MONONITRATE ER 30 MG TAB.ER.24H PO SCH (07:48)
[2019-03-25] MEDS: TAMSULOSIN 0.4 MG CAP.ER.24H PO SCH (07:48)
[2019-03-25] MEDS: LOSARTAN 50 MG TAB PO SCH (07:48)
[2019-03-25] MEDS: METOPROLOL TARTRATE 50 MG TAB PO SCH ×2 (07:48→20:34)
[2019-03-25] MEDS: ALLOPURINOL 100 MG TAB PO SCH ×2 (07:48→20:34)
[2019-03-25] MEDS: CALCIUM CARB-VIT D 500MG-200UN 1 EACH TAB PO SCH ×2 (07:48→20:34)
[2019-03-25] MEDS: MAGNESIUM OXIDE 400 MG TAB PO SCH (07:48)
[2019-03-25] MEDS: ATORVASTATIN 40 MG TAB PO SCH (07:48)
[2019-03-25 07:56] LABS: Albumin 3.9 g/dL (3.5-5.0); Calcium 9.6 mg/dL (8.4-10.2); Magnesium 2.2 mg/dL (1.6-2.3); Potassium 4.2 mmol/L (3.5-5.1); Total Bilirubin 0.7 mg/dL (0.2-1.3); Total Protein 6.6 g/dL (6.3-8.2)
[2019-03-25 08:10] LABS: Basophils % (A) 1 %; Eosinophils # (A) 0.2 k/uL (0-0.7); Eosinophils % (A) 4 %; HCT 34.7 % (39.0-53.0); HGB 11.9 gm/dL (13.0-17.5); Lymphocytes # (A) 1.1 k/uL (1.0-4.8); Lymphocytes % (A) 24 %; MCHC 34.4 g/dL (31.0-37.0); MCV 87.3 fL (80.0-100.0); Mean Platelet Volume 6.5; Monocytes # (A) 0.3 k/uL (0-1.0); Monocytes % (A) 7 %; Neutrophils % (A) 63 %; Platelet Count 104 k/uL (150-450); Poikilocytosis Slight; RBC 3.98 m/uL (4.30-5.90); RDW 15.3 % (11.5-15.5); WBC 4.8 k/uL (3.8-10.6)
[2019-03-25] MEDS ORDERED: COLCHICINE 0.6 MG EACH PO SCH (09:00)
[2019-03-25] MEDS ORDERED: NON FORMULARY DRUG (Omeprazole [Prilosec] 20 MG) PO SCH (09:00)
[2019-03-25] MEDS ORDERED: ASPIRIN 81 MG PO SCH (09:00)
[2019-03-25] MEDS ORDERED: INSULIN DETEMIR (LEVEMIR) 100 UNIT/ML SYR SQ SCH (09:00)
[2019-03-25] MEDS ORDERED: TURMERIC ROOT EXTRACT 1000 MG PO SCH (09:00)
[2019-03-25 11:19] LABS: Hepatitis A Antibody IgM Non-Reactive (Non-Reactive); Hepatitis B Core IgM Non-Reactive (Non-Reactive); Hepatitis B Surface Antigen Non-Reactive (Non-Reactive); Hepatitis C IgG Antibody Non-Reactive (Non-Reactive)
--- NOTE | 2019-03-25 11:25 | ECHOF ---
Referral Reason:eval valves for open heart MEASUREMENTS -------- HEIGHT: 170.2 cm WEIGHT: 104.3 kg BP: IVSd: 1.5 cm (0.6 - 1.1) LVIDd: 5.5 cm (3.9 - 5.3) LVPWd: 1.3 cm (0.6 - 1.1) IVSs: 1.7 cm LVIDs: 4.2 cm LVPWs: 1.6 cm LAESV Index (A-L): 19.02 ml/m Ao Diam: 2.9 cm (2.0 - 3.7) AV Cusp: 1.5 cm (1.5 - 2.6) LA Diam: 3.1 cm (2.7 - 3.8) MV EXCURSION: 15.119 mm (> 18.000) MV EF SLOPE: 28 mm/s (70 - 150) EPSS: 2.8 cm MV E Miki: 0.70 m/s MV DecT: 211 ms MV A Miki: 0.96 m/s MV E/A Ratio: 0.73 AV maxP.14 mmHg AV meanP.42 mmHg RAP: 5.00 mmHg RVSP: 8.53 mmHg TAPSE: 26.03 mm FINDINGS -------- Sinus rhythm. This was a technically difficult study with suboptimal views. The left ventricular size is normal. There is moderate concentric left ventricular hypertrophy. O verall left ventricular systolic function is mild-moderately impaired with, an EF between 40 - 45 %. Normal LAP. Grade 1 Diastolic Dysfunction. Basal inferior LV wall motion is hypokinetic. Basal inferoseptal LV wall motion is hypokinetic. Mid inferior LV wall motion is hypokinetic. The right ventricle is normal in size. The right ventricular systolic function is normal. The left atrial size is normal. Normal LA size by volume 22+/-6 ml/m2. The right atrial size is normal. 5.0mg of Lumason was utilized for enhancement of images IAS not well Visualized. Aortic valve is trileaflet and is mildly thickened. There is mild aortic valve sclerosis. Peak/me an gradient across the Aortic Valve is 11.14mmHg / 7.42mmHg. The mitral valve is normal. The mitral valve leaflets are mildly thickened. There is trace mitral regurgitation. The tricuspid valve appears structurally normal. Trace tricuspid regurgitation present. Right ti tricular systolic pressure is normal at < 35 mmHg. There is no pulmonic regurgitation present. The aortic root size is normal. IVC Not well visulized. There is no pericardial effusion. CONCLUSIONS -------- 1. Sinus rhythm. 2. This was a technically difficult study with suboptimal views. 3. The left ventricular size is normal. 4. There is moderate concentric left ventricular hypertrophy. 5. Normal LAP. Grade 1 Diastolic Dysfunction. 6. Basal inferior LV wall motion is hypokinetic. 7. Basal inferoseptal LV wall motion is hypokinetic. 8. Mid inferior LV wall motion is hypokinetic. 9. The right ventricle is normal in size. 10. The right ventricular systolic function is normal. 11. The left atrial size is normal. 12. Normal LA size by volume 22+/-6 ml/m2. 13. The right atrial size is normal. 14. 5.0mg of Lumason was utilized for enhancement of images 15. IAS not well Visualized. 16. Aortic valve is trileaflet and is mildly thickened. 17. There is mild aortic valve sclerosis. 18. Peak/mean gradient across the Aortic Valve is 11.14mmHg / 7.42mmHg. 19. The mitral valve is normal. 20. The mitral valve leaflets are mildly thickened. 21. There is trace mitral regurgitation. 22. The tricuspid valve appears structurally normal. 23. Trace tricuspid regurgitation present. 24. Right ventricular systolic pressure is normal at < 35 mmHg. 25. There is no pulmonic regurgitation present. 26. The aortic root size is normal. 27. IVC Not well visulized. 28. There is no pericardial effusion. BROADCAST TRANSMITTER OPERATOR: Sushila Turner RDCS
[2019-03-25 11:43] LABS: Glucose,Whole Blood 139 mg/dL (75-99)
--- NOTE | 2019-03-25 12:32 | P.PN ---
Subjective Progress Note Date: 03/25/19 Principal diagnosis: Triple-vessel coronary artery disease with history of coronary artery disease and myocardial infarction with multiple stents to his right coronary artery and left anterior descending coronary artery, medical history significant for ventricular fibrillation arrest after stenting in 2010 with placement of Medtronic AICD, hypertension, hyperlipidemia, chronic kidney disease with a baseline creatinine of 1.7, diabetes mellitus type 2, paroxysmal atrial fibril lation on chronic Eliquis for anticoagulation, chronic obstructive pulmonary disease, morbid obesity, obstructive sleep apnea with home CPAP use and family history of heart disease. This is 73-year-old gentleman who is followed by Dr. Erasmo Guevara on an outpatient basis. Recently, the patient has been having some progressive shortness of breath and complaints of substernal chest pain. 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 SANAM Hinds in December 2018 and underwent a Lexiscan stress test w hich showed no ischemia. For further evaluation he was recommended to undergo a heart catheterization which was completed yesterday and demonstrated him to have a 60% stenosis to his proximal left anterior descending coronary artery, a 30% stenosis to his mid left anterior descending coronary artery, a 90% stenosis to a circumflex coronary artery and a 60% stenosis to his right coronary artery. Due to the patient's symptoms and cardiac catheterization results he was admitted to the observation unit and a consult was placed to Dr. Remington Parker from cardiothoracic surgery for further evaluation and treatment recommendations on possible myocardial revascularization surgery. Preoperative testing has been initiated and is in progress. Currently the patient is laying in bed eating his breakfast on the observation unit. He reports that he has been having continued episodes of shortness of br eath but denies any chest pain. Oxygen saturations are 96% on room air. He is achieving 2000 mL on his incentive spirometry. He remains hemodynamically stable and is currently on no inotropic or pressor support. A carotid duplex study was completed yesterday which shows no significant stenosis. A bedside FEV1 was completed yesterday which showed a 63% of predicted value. He reports he is a lifetime nonsmoker. Objective - Vital Signs Vital signs: Vital Signs Temp 97.5 F L 03/25/19 07:00 Pulse 75 03/25/19 07:00 Resp 18 03/25/19 07:00 BP 154/81 03/25/19 07:00 Pulse Ox 96 03/25/19 07:00 Intake & Output 03/24/19 03/25/19 03/25/19 18:59 06:59 18:59 Intake Total 560 120 Balance 560 120 Weight 104.5 kg Intake: IV 200 Oral 360 120 Other: Voiding Method Toilet Toilet Toilet # Voids 1 - Constitutional General appearance: Present: cooperative, morbidly obese, no acute distress - Respiratory Details: Lung sounds are essentially clear throughout. Respirations are symmetrical and nonlabored. Oxygen saturation are 96% on room air. Achieving 2000 mL on his incentive spirometry. Bedside FEV1 completed yesterday which demonstrated a 63% of predicted value. - Cardiovascular Details: Regular rhythm and rate. S1 and S2 present, negative for S3, gallop or murmur. No edema present. - Gastrointestinal Gastrointestinal Comment(s): Abdomen is soft, nontender and nondistended. Active bowel sounds present all 4 abdominal quadrants. No guarding or rigidity. No organomegaly appreciated. - Neurologic Neurologic Comment(s): No focal neurological deficits. Neurologic: Present: CNII-XII intact - Musculoskeletal Musculoskeletal: Present: gait normal, strength equal bilaterally - Psychiatric Psychiatric: Present: A&O x's 3, appropriate affect, intact judgment & insight - Allied health notes Allied health notes reviewed: nursing - Labs CBC & Chem 7: 03/25/19 06:42 03/25/19 06:42 Labs: Abnormal Lab Results - Last 24 Hours (Table) 03/24/19 03/24/19 03/25/19 Range/Units 16:40 20:27 06:33 RBC (4.30-5.90) m/uL Hgb (13.0-17.5) gm/dL Hct (39.0-53.0) % Plt Count (150-450) k/uL APTT (22.0-30.0) sec BUN (9-20) mg/dL Creatinine (0.66-1.25) mg/dL Glucose (74-99) mg/dL POC Glucose (mg/dL) 165 H 217 H 176 H (75-99) mg/dL Triglycerides (<150) mg/dL HDL Cholesterol (40-60) mg/dL 03/25/19 03/25/19 03/25/19 Range/Units 06:42 06:42 06:42 RBC 3.98 L (4.30-5.90) m/uL Hgb 11.9 L (13.0-17.5) gm/dL Hct 34.7 L (39.0-53.0) % Plt Count 104 L (150-450) k/uL APTT 32.4 H (22.0-30.0) sec BUN 33 H (9-20) mg/dL Creatinine 1.71 H (0.66-1.25) mg/dL Glucose 166 H (74-99) mg/dL POC Glucose (mg/dL) (75-99) mg/dL Triglycerides 366 H (<150) mg/dL HDL Cholesterol 21 L (40-60) mg/dL - Imaging and Cardiology Carotid duplex, chest x-ray and vein mapping results reviewed. Assessment and Plan Assessment: 1. Triple-vessel coronary artery disease 2. History of coronary artery disease and myocardial infarction with multiple stents to the RCA and LAD 3. 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 Hypertension 5. Hyperlipidemia 6. Type 2 diabetes mellitus 7. Chronic kidney disease with baseline creatinine 1.7 8. Paroxysmal atrial fibrillation on chronic Eliquis for anticoagulation 9. Chronic obstructive pulmonary disease 10. Obstructive sleep apnea with home CPAP use 11. Morbid obesity 12. Family history of heart disease Plan: 1. Continue to maximize medical therapy with aspirin, statin, losartan, and beta cely. 2. Once all of his preoperative testing has been reviewed and obtained a STS risk score will be calculated and discussed with the patient. 3. A 5 m walk test has been completed 4. Continue to encourage use of his incentive spirometry every hour while awake. 5. GI and DVT prophylaxis. 6. Medical management and other comorbidities per primary care service. 7. Dr. Parker reviewed the cardiac catheterization films with Dr. SANAM Hinds. It was felt that the patient would benefit from an IVUS/FFR of the LAD tomorrow to be performed by Dr. SANAM Hinds. This was discussed with the patient by Dr. Parker and the patient wished to proceed with the PAWAN procedure. 8. More recommendations to follow based on patient's clinical course. Time with Patient: Greater than 30
--- NOTE | 2019-03-25 12:54 | P.CONS ---
History of Present Illness - Reason for Consult Consult date: 03/25/19 Medical management - History of Present Illness This is a 73-year-old male patient of Dr. Guevara with past medical history for coronary artery disease, paroxysmal atrial fibrillation on eliquis, diabetes mellitus type II insulin requiring with diabetic neuropathy, chronic kidney disease, kidney stones, COPD, obstructive sleep apnea with CPAP, hyperlipidemia, hypertension, and rheumatoid arthritis, gout, benign prostatic hypertrophy. His primary care physician is Dr. Guevara he follows with Dr. SANAM Hinds as his multimedia editor. He had a heart catheterization done in 2005 that showed moderate disease involving the LAD and diagonal was mild involvement patient had some irregular lesion of the circumflex. He was seen at [facility] for chest pain and non-ST elevated [place] 2010. At that time, his heart catheterization revealed an acutely occluded right coronary artery, significant disease in the moderate size third obtuse marginal branch with moderate disease in the LAD and left circumflex. Ejection fraction was 3540 percent. He underwent successful stenting of the distal RCA. Later in his room, patient developed ventricular fibrillation and was quickly resuscitated and underwent heart catheterization and underwent angioplasty and stenting of the PLV branch of the right coronary artery. On 09/14/2010, patient underwent a single chamber cardioverter defibrillator implantation. His echocardiogram revealed mild pulmonary hypertension, ejection fraction 40% at that time. In 2014 he underwent heart catheterization finding 45% proximal right coronary artery stenosis and significant mid LAD lesion which underwent PTCA and stenting of the mid LAD. Patient's also gives history of a septic knee joint needing washout which was done at [facility] at that time patient developed atrial fibrillation in the postop period. He also had a run of V. tach for which his AICD fired. Ever since that episode of sepsis, patient has had chronic kidney disease. Regarding his diabetes, he follows with Dr. Yoanna Mccormick. He is currently on Trulicity 1.5mg weekly, Lantus 56 units in the morning and recently changed to 18 units of NovoLog with meals. His last hemoglobin A1c was 7.4 in December at [facility]. Regarding rheumatoid arthritis and psoriatic arthritis, patient follows with Dr. Shelton. In the past he has been on methotrexate, Enbrel and Humira. He was recently on Ilaris but this was stopped when he started having cardiac problems as there is concern for arrhythmia. He contacted his home health care coordinator and she had recommended stopping it. The patient have follow-up in the cardiology office in December of this year and underwent a Lexiscan stress test that did not demonstrate any ischemia. Over the past 3-4 weeks she has had intermittent substernal chest pain with radiation to his arms. He was recommended for heart catheterization which was completed y that found proximal LAD stenosis 60%, mid LAD stenosis 30%, circumflex stenosis 90% and RCA stenosis 60. Cardiothoracic surgery was consulted for recommendations regarding CABG versus stenting. Carotid ultrasound revealed mild plaque bilateral bifurcations but no significant stenosis. Chest x-ray reveals no acute cardiopulmonary process. Underlying COPD. patient has been evaluated by cardiothoracic surgery. Plan for tomorrow is a repeat heart catheterization to further evaluate LAD. Review of Systems Constitutional: Reports fatigue, Denies chills, Denies fever, Denies lethargy, Denies malaise, Denies poor appetite, Denies weight loss Eyes: denies blurred vision, denies pain Ears, nose, mouth and throat: Denies headache, Denies sore throat Cardiovascular: Reports chest pain, Reports decreased exercise tolerance, Reports dyspnea on exertion, Reports shortness of breath, Denies lightheadedness, Denies palpitations, Denies syncope Respiratory: Reports dyspnea, Denies cough, Denies cough with sputum, Denies excessive sputum, Denies hemoptysis, Denies home oxygen, Denies respiratory infections, Denies wheezing Gastrointestinal: Denies abdominal pain, Denies diarrhea, Denies nausea, Denies vomiting Genitourinary: Denies dysuria, Denies urinary frequency, Denies urinary hesitancy, Denies urinary retention Musculoskeletal: Denies frequent falls, Denies gait dysfunction, Denies myalgias Integumentary: Denies pruritus, Denies rash, Denies wounds Neurological: Denies change in mentation, Denies change in speech, Denies numbness, Denies seizures, Denies weakness Psychiatric: Denies anxiety, Denies depression Endocrine: Denies fatigue, Denies weight change Past Medical History Past Medical History: Atrial Fibrillation, Asthma, Coronary Artery Disease (CAD), Chest Pain / Angina, Heart Failure, COPD, Diabetes Mellitus, GERD/Reflux, Hyperlipidemia, Hypertension, Myocardial Infarction ([place]), Osteoarthritis (OA), Prostate Disorder, Pulmonary Embolus (PE), Renal Disease, Skin Disorder, Sleep Apnea/CPAP/BIPAP Additional Past Medical History / Comment(s): SUDDEN 2010-REVIVED AND DEFIBRILLATOR. GOUT. , PSORIASIS, MEDTRONIC AICD., STROKE BEHIND LT EYE. KIDNEY STONES. , STAGE 3 KIDNEY DISEASE., ANEMIA, BPH, [place] x 4 , "Blood clot outside of my heart", BELLS PALSY, NEUROPATHY, STATES UNSTEADY GAIT- USES CANE PRN., USES C-PAP MACHINE, PSORIATIC ARTHRITIS, STATES EPISODE OF A-FIB AFTER KNEE SURGERY., STATES HE DROPPED WRENCH ON FOOT -HAS RED SPOT AND SOME PAIN., HX V-TACH., SEE CARDIOLOGY H & P. Last Myocardial Infarction Date:: 12/2014 History of Any Multi-Drug Resistant Organisms: None Reported Past Surgical History: Adenoidectomy, AICD, Heart Catheterization, Heart Catheterization With Stent, Orthopedic Surgery, Tonsillectomy Additional Past Surgical History / Comment(s): BRIAN CARPAL TUNNEL, LT ROTATOR CUFF. 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 He denies any medical marijuana, marijuana, street drug or alcohol use. 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 He is a . Patient was at home with his . He uses a cane as needed. Past Drug Use History: None Reported - Past Family History Father Family Medical History: Coronary Artery Disease (CAD) Additional Family Medical History / Comment(s): TRIPLE BYPASS Mother Family Medical History: Cancer, Hypertension, Pulmonary Embolus Additional Family Medical History / Comment(s): ENDOMETRIAL CANCER Daughter(s) Family Medical History: Cancer, Pulmonary Embolus Medications and Allergies Home Medications Medication Instructions Recorded Confirmed Type Calcium Carbonate/Vitamin D3 1 tab PO BID 12/09/14 03/24/19 History [Calcium 600 + Vit D Tablet] Insulin Glargine,Hum.rec.anlog 56 unit SQ QAM 12/09/14 03/24/19 History [Lantus Solostar] Metoprolol Tartrate [Lopressor] 100 mg PO BID 12/09/14 03/24/19 History Omeprazole [PriLOSEC] 20 mg PO DAILY 12/09/14 03/24/19 History Furosemide [Lasix] 40 mg PO BID 02/06/16 03/24/19 History Isosorbide Mononitrate ER [Imdur] 30 mg PO BID 02/06/16 03/24/19 History Atorvastatin [Lipitor] 40 mg PO HS 03/14/17 03/24/19 History Hydrochlorothiazide 12.5 mg PO DAILY 03/14/17 03/24/19 History Insulin Aspart [NovoLOG Flexpen] 18 units SQ AC-TID 03/14/17 03/24/19 History Losartan [Cozaar] 50 mg PO DAILY 03/14/17 03/24/19 History Allopurinol [Zyloprim] 100 mg PO BID 03/20/19 03/24/19 History Apixaban [Eliquis] 2.5 mg PO BID 03/20/19 03/24/19 History Colchicine 0.6 mg PO DAILY 03/20/19 03/24/19 History Dulaglutide [Trulicity] 1.5 mg SQ WEEKLY 03/20/19 03/24/19 History Magnesium 400 mg PO DAILY 03/20/19 03/24/19 History Metoprolol Tartrate [Lopressor] 50 mg PO DAILY@1200 03/20/19 03/24/19 History Nitroglycerin Sl Tabs [Nitrostat] 0.4 mg SUBLINGUAL Q5M PRN 03/20/19 03/24/19 History Tamsulosin HCl [Flomax] 0.4 mg PO DAILY 03/20/19 03/24/19 History Turmeric Root Extract [Turmeric] 1,000 mg PO DAILY 03/20/19 03/24/19 History Allergies Allergy/AdvReac Type Severity Reaction Status Date / Time gabapentin AdvReac Unknown DREAMS, Verified 03/20/19 09:54 PERSONALITY CHANGES- ANGER Sulfa (Sulfonamide AdvReac Rapid Verified 03/20/19 09:53 Antibiotics) Heart Rate/Dyspnea Physical Exam Vitals: Vital Signs Temp Pulse Pulse Resp BP Pulse Ox 03/25/19 07:00 97.5 F L 75 18 154/81 96 03/25/19 03:54 77 15 03/25/19 03:47 98.0 F 77 15 138/76 97 03/25/19 00:00 81 15 03/24/19 23:11 98.2 F 81 15 133/77 98 03/24/19 19:30 60 16 03/24/19 18:59 98.1 F 67 15 138/79 03/24/19 16:54 88 139/70 95 03/24/19 15:50 83 127/66 95 03/24/19 15:20 90 128/66 95 03/24/19 14:50 93 125/69 95 03/24/19 14:35 84 140/64 96 03/24/19 14:20 84 132/64 96 03/24/19 14:05 98.1 F 86 18 120/67 98 Intake and Output 03/24/19 03/25/19 03/25/19 22:59 06:59 14:59 Intake Total 360 120 Balance 360 120 Intake: Oral 360 120 Other: Voiding Method Toilet Toilet Toilet # Voids 1 Gen: This is a 69-year-old gentleman. He is resting in bed appears to be in no acute distress. Patient's and his sister at bedside. HEENT: Head is atraumatic, normocephalic. Pupils equal, round. Sclerae is anicteric. Conjunctiva pink. Mucous membranes of the mouth are moist. No thrush noted NECK: Supple. No JVD. No lymphadenopathy. No thyromegaly. LUNGS: Clear to auscultation. No wheezes or rhonchi. No intercostal retractions. HEART: Regular rate and rhythm. No murmur. ABDOMEN: Soft. Morbidly obese. Bowel sounds are present. No tenderness. EXTREMITIES: No pedal edema. No calf tenderness. Dorsalis pedis is +2 bilaterally. NEUROLOGICAL: Patient is awake, alert and oriented x3. Cranial nerves 2 through 12 are grossly intact. Results CBC & Chem 7: 03/25/19 06:42 03/26/19 09:39 Labs: Abnormal Lab Results - Last 24 Hours (Table) 03/24/19 03/24/19 03/25/19 Range/Units 16:40 20:27 06:33 RBC (4.30-5.90) m/uL Hgb (13.0-17.5) gm/dL Hct (39.0-53.0) % Plt Count (150-450) k/uL APTT (22.0-30.0) sec BUN (9-20) mg/dL Creatinine (0.66-1.25) mg/dL Glucose (74-99) mg/dL POC Glucose (mg/dL) 165 H 217 H 176 H (75-99) mg/dL Triglycerides (<150) mg/dL HDL Cholesterol (40-60) mg/dL 03/25/19 03/25/19 03/25/19 Range/Units 06:42 06:42 06:42 RBC 3.98 L (4.30-5.90) m/uL Hgb 11.9 L (13.0-17.5) gm/dL Hct 34.7 L (39.0-53.0) % Plt Count 104 L (150-450) k/uL APTT 32.4 H (22.0-30.0) sec BUN 33 H (9-20) mg/dL Creatinine 1.71 H (0.66-1.25) mg/dL Glucose 166 H (74-99) mg/dL POC Glucose (mg/dL) (75-99) mg/dL Triglycerides 366 H (<150) mg/dL HDL Cholesterol 21 L (40-60) mg/dL Assessment and Plan Plan: 1. Triple-vessel coronary artery disease status post heart catheterization. Thoracic surgery consult for CABG versus stenting. The patient is to undergo heart catheterization tomorrow with Dr. MARION ready to further evaluate LAD. Continue aspirin 81 mg daily, atorvastatin, Imdur 30 mg daily, Lopressor. 2. History of non-ST elevated myocardial infarction, coronary artery disease and multiple stents. 3. Diabetes mellitus type 2 with diabetic neuropathy. Patient is normally on Lantus 36 units in the morning and NovoLog 18 units 3 times daily along with scale. While hospitalized, patient will be on Levemir 30 units twice daily and NovoLog scale. 4. Paroxysmal atrial fibrillation. Eliquis is on hold. Continue Lopressor 100 mg twice daily. 5. Hypertension. Continue Lopressor, losartan 50 mg daily. 6. Hyperlipidemia. Continue atorvastatin 40 mg daily 7. Chronic kidney disease. Monitor renal function and avoid nephrotoxic agents . 8. Obstructive sleep apnea with home CPAP. 9. COPD, stable without exacerbation. 10. History of ventricular tachycardia and cardiomyopathy status post AICD, stable 11. Gastroesophageal reflux disease. Continue Protonix 12. Rheumatoid arthritis, stable 13. Chronic gout. Continue allopurinol 100 mg twice daily. 14. Benign prostatic hypertrophy. Continue tamsulosin 0.4 mg daily. Monitor for retention. 15. History of left knee septic arthroplasty. Stable. Impression and plan of care have been directed as dictated by the signing physician. Leigh Bailey nurse practitioner acting as scribe for signing physician.
[2019-03-25 14:00] LABS: Hemoglobin A1C 7.3 % (4.0-6.0)
--- NOTE | 2019-03-25 14:33 | PN ---
PROGRESS NOTE Mr. Muro was seen by me today. His right radial cath site is clean and dry with a good pulse. His blood pressure is 128/70, pulse rate is 64 per minute. EKG revealed sinus mechanism with old inferior WI, no acute changes. LABORATORY DATA: Reveals the BUN, creatinine has improved. All other labs are unremarkable. Creatinine is 1.7. This gentleman underwent a cardiac cath from right radial approach. There is insignificant lesion in the ostial and mid circumflex. There is also a moderate lesion in the proximal LAD before the stented segment, before the diagonal branch which is eccentric in nature and also proximal RCA. I feel the proximal RCA and LAD lesions are moderate but not critical and therefore I recommend surgical evaluation. I reviewed the images with Dr. Parker and he felt that if LAD had a significant lesion based on intravascular ultrasound or FFR, he would perform surgery. Otherwise, I will perform PCI of circumflex. I discussed this matter in detail with the patient and and is scheduled tomorrow to have an intravascular ultrasound and/or FFR to assess significance of proximal LAD lesion and then based on that, either he will go for open heart surgery with multiple grafts or PCI of circumflex. The patient and understand this, wished to proceed with the procedure and they are fully aware of the associated risks, benefits, and options. MMODL / IJN: [id number] / MTDD
[2019-03-25 16:28] LABS: Glucose,Whole Blood 160 mg/dL (75-99)
[2019-03-25 20:06] LABS: Glucose,Whole Blood 180 mg/dL (75-99)
[2019-03-25] MEDS: INSULIN DETEMIR (LEVEMIR) 100 UNIT/ML SYR SQ SCH ×2 (20:35→20:43)
[2019-03-26] MEDS ORDERED: ASPIRIN 325 MG TAB PO ONE (06:00)
[2019-03-26] MEDS: ISOSORBIDE MONONITRATE ER 30 MG TAB.ER.24H PO SCH (06:41)
[2019-03-26] MEDS: ATORVASTATIN 40 MG TAB PO SCH (06:41)
[2019-03-26] MEDS: LOSARTAN 50 MG TAB PO SCH (06:41)
[2019-03-26] MEDS: ALLOPURINOL 100 MG TAB PO SCH ×2 (06:41→20:29)
[2019-03-26] MEDS: MAGNESIUM OXIDE 400 MG TAB PO SCH (06:42)
[2019-03-26] MEDS: TAMSULOSIN 0.4 MG CAP.ER.24H PO SCH (06:42)
[2019-03-26] MEDS: CALCIUM CARB-VIT D 500MG-200UN 1 EACH TAB PO SCH ×2 (06:42→20:29)
[2019-03-26] MEDS: PANTOPRAZOLE 40 MG TABLET PO SCH (06:43)
[2019-03-26 06:52] LABS: Glucose,Whole Blood 140 mg/dL (75-99)
[2019-03-26] MEDS ORDERED: INSULIN DETEMIR (LEVEMIR) 100 UNIT/ML SYR SQ SCH ×2 (07:00→21:00)
[2019-03-26] MEDS: INSULIN ASPART (NovoLOG) 100 UNIT/ML VIAL SQ SCH ×4 (08:07→20:28)
[2019-03-26] MEDS: METOPROLOL TARTRATE 50 MG TAB PO SCH ×2 (08:33→20:28)
[2019-03-26] MEDS ORDERED: IV FLUID CONTINUATION 1,000 ML IV ONE (08:59)
[2019-03-26] MEDS ORDERED: LIDOCAINE 1% INJ 10MG/ML (20 ML MDV) ONE ×2 (09:05→09:06)
[2019-03-26] MEDS ORDERED: MIDAZOLAM 2 MG/2 ML VIAL IVP ONE (09:32)
[2019-03-26] MEDS ORDERED: LIDOCAINE 1% INJ 10MG/ML (20 ML MDV) SQ ONE (09:34)
[2019-03-26] MEDS ORDERED: HEPARIN SODIUM 1,000 UN/ML (10ML VL) ONE (09:37)
[2019-03-26] MEDS ORDERED: HYDROmorphone 1 MG/ML 1 ML SYRINGE ONE ×2 (09:41→13:38)
[2019-03-26] MEDS ORDERED: HYDROmorphone 1 MG/ML 1 ML SYRINGE IVP ONE (09:41)
[2019-03-26] MEDS ORDERED: HEPARIN SODIUM 1,000 UN/ML (10ML VL) IV ONE (09:52)
[2019-03-26] MEDS ORDERED: NITROGLYCERIN 1000MCG/10ML SYRINGE INTRACORON ONE (09:57)
--- NOTE | 2019-03-26 10:27 | P.PN ---
Subjective Progress Note Date: 03/26/19 Principal diagnosis: Triple-vessel coronary artery disease with history of coronary artery disease and myocardial infarction with multiple stents to his right coronary artery and left anterior descending coronary artery, medical history significant for ventricular fibrillation arrest after stenting in 2010 with placement of Medtronic AICD, hypertension, hyperlipidemia, chronic kidney disease with a baseline creatinine of 1.7, diabetes mellitus type 2, paroxysmal atrial fibril lation on chronic Eliquis for anticoagulation, chronic obstructive pulmonary disease, morbid obesity, obstructive sleep apnea with home CPAP use and family history of heart disease. This is 73-year-old gentleman who is followed by Dr. Erasmo Guevara on an outpatient basis. Recently, the patient has been having some progressive shortness of breath and complaints of substernal chest pain. Subsequently he was seen by his intermediate accountant Dr. SANAM Hinds in December 2018 and underwent a Lexiscan stress test w hich showed no ischemia. For further evaluation he was recommended to undergo a heart catheterization which was completed yesterday and demonstrated him to have a 60% stenosis to his proximal left anterior descending coronary artery, a 30% stenosis to his mid left anterior descending coronary artery, a 90% stenosis to a circumflex coronary artery and a 60% stenosis to his right coronary artery. Due to the patient's symptoms and cardiac catheterization results he was admitted to the observation unit and a consult was placed to Dr. Remington Parker from cardiothoracic surgery for further evaluation and treatment recommendations on possible myocardial revascularization surgery. Preoperative testing has been initiated and is in progress. Patient is sitting up to the bedside edge on the observation unit. He is in no acute distress. He reports that he has been having some continued episodes of shortness of breath with activity but denies any complaints of pain. He is scheduled for a IVUS/FFR with Dr. SANAM Hinds today to assess the lesion to his left anterior descending coronary artery. Oxygen saturations 97% on room air. He is achieving 2000 mL on his incentive spirometry. Preoperative teaching was reinforced with the patient and his and their questions were answered to the best my ability. Objective - Vital Signs Vital signs: Vital Signs Temp 98 F 03/26/19 07:50 Pulse 70 03/26/19 07:50 Resp 18 03/26/19 07:50 BP 159/79 03/26/19 07:50 Pulse Ox 96 03/26/19 07:50 Intake & Output 03/25/19 03/26/19 03/26/19 18:59 06:59 18:59 Intake Total 420 222 Balance 420 222 Intake: Oral 420 222 Other: Voiding Method Toilet Toilet Toilet # Voids 1 - Constitutional General appearance: Present: cooperative, morbidly obese, no acute distress - Respiratory Details: Lungs sounds essentially clear throughout. No wheezing, crackles or rhonchi present. Respirations are symmetrical and nonlabored. Oxygen saturation 97% on room air. Achieving 2000 mL on his incentive spirometry. - Cardiovascular Details: Regular rhythm and rate. S1 and S2 present, negative for S3, gallop or murmur. No edema present. - Gastrointestinal Gastrointestinal Comment(s): Abdomen is soft, nontender nondistended. Active bowel sounds present all 4 abdominal quadrants. No guarding or rigidity. No organomegaly appreciated. - Genitourinary Genitourinary Comment(s): Voiding clear yellow urine. - Integumentary Integumentary Comment(s): Skin is warm and dry. No clubbing or cyanosis is present. No rash or abnormal pigmentation is present. - Neurologic Neurologic Comment(s): No focal neurological deficits present. Neurologic: Present: CNII-XII intact - Musculoskeletal Musculoskeletal: Present: gait normal, strength equal bilaterally - Psychiatric Psychiatric: Present: A&O x's 3, appropriate affect, intact judgment & insight - Allied health notes Allied health notes reviewed: nursing - Labs CBC & Chem 7: 03/25/19 06:42 03/25/19 06:42 Labs: Abnormal Lab Results - Last 24 Hours (Table) 03/25/19 03/25/19 03/25/19 Range/Units 06:42 11:41 16:27 POC Glucose (mg/dL) 139 H 160 H (75-99) mg/dL Hemoglobin A1c 7.3 H (4.0-6.0) % 03/25/19 03/26/19 Range/Units 20:02 06:51 POC Glucose (mg/dL) 180 H 140 H (75-99) mg/dL Hemoglobin A1c (4.0-6.0) % Microbiology - Last 24 Hours (Table) 03/25/19 09:30 Nasal Screen MRSA/MSSA - Preliminary Nasal Swab Assessment and Plan Assessment: 1. Triple-vessel coronary artery disease 2. History of coronary artery disease and myocardial infarction with multiple stents to the RCA and LAD 3. 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 Hypertension 5. Hyperlipidemia 6. Type 2 diabetes mellitus 7. Chronic kidney disease with baseline creatinine 1.7 8. Paroxysmal atrial fibrillation on chronic Eliquis for anticoagulation 9. Chronic obstructive pulmonary disease 10. Obstructive sleep apnea with home CPAP use 11. Morbid obesity 12. Family history of heart disease Plan: 1. Continue to maximize medical therapy with aspirin, statin, losartan, and beta cely. 2. Once all of his preoperative testing has been reviewed and obtained a STS risk score will be calculated and discussed with the patient. 3. A 5 m walk test has been completed by cardiac rehab. Time 1: 7.57 seconds, time 2: 7.12 seconds, time 3: 7.02 seconds. 4. Continue to encourage use of his incentive spirometry every hour while awake. 5. GI and DVT prophylaxis. 6. Medical management and other comorbidities per primary care service. 7. Once the patient's IVUS/FFR is completed. If it demonstrates significant lesions to his LAD considerations will be made for myocardial revascularization surgery. This was discussed with the patient and his at length yesterday by Dr. Parker. 8. More recommendations to follow based on patient's clinical course. Time with Patient: Greater than 30
[2019-03-26] MEDS ORDERED: IOPAMIDOL-370 100ML BTL INJ ONE (10:28)
[2019-03-26 10:40] LABS: Calcium 9.3 mg/dL (8.4-10.2); Potassium 4.4 mmol/L (3.5-5.1)
[2019-03-26] MEDS: SODIUM CHLORIDE 0.9% 1,000 ML IV SCH ×3 (11:24→22:28)
[2019-03-26] MEDS ORDERED: HYDROmorphone 0.5 MG/0.5 ML SYRINGE IVP STA (12:01)
[2019-03-26] MEDS ORDERED: RX INFO: IV CONTRAST WAS GIVEN 1 EACH MISC MISCELLANE PRN (12:06)
--- NOTE | 2019-03-26 12:07 | PN ---
PROGRESS NOTE Mr. Muro is a gentleman who has severe moderate triple-vessel disease. After evaluation by Dr. Parker, it was decided to proceed with an intravascular ultrasound to delineate the severity of left main and proximal LAD disease. This was performed today uneventfully. Patient has a significant lesion in the proximal LAD with an area of 2.6 mm2 and also within the left main with heavy circumferential calcification and lesion in the area of 3.2 mm2. Both of these are significant. He requires aortocoronary bypass surgery. I am recommending that we pull the sheath later on today, place him on a heparin drip. I would also recommend that he require 5 grafts to the LAD, diagonal, 2 branches of RCA and circumflex marginal. I have left a message for Dr. Parker. Postprocedure, patient is stable, uneventful. FINDINGS: Results and recommendations were discussed with the patient and his . Physical exam revealed normal vital signs. No JVD, S1-S2 heard normally but distantly. short systolic murmur at the base is audible, second heart sound is preserved. Lungs are clear. Abdomen is soft. Lower extremities reveal diminished pulses. Central nervous system is normal. MMODL / IJN: [id number] /
[2019-03-26 12:19] LABS: Glucose,Whole Blood 114 mg/dL (75-99)
--- NOTE | 2019-03-26 15:10 | P.PN ---
Subjective Progress Note Date: 03/26/19 This is a 73-year-old male patient of Dr. Guevara with past medical history for coronary artery disease, paroxysmal atrial fibrillation on eliquis, diabetes mellitus type II insulin requiring with diabetic neuropathy, chronic kidney disease, kidney stones, COPD, obstructive sleep apnea with CPAP, hyperlipidemia, hypertension, and rheumatoid arthritis and cirrhotic arthritis, gout, benign prostatic hypertrophy. His primary care physician is Dr. 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 He had a heart catheterization done in 2005 that showed moderate disease involving the LAD and diagonal was mild involvement patient had some irregular lesion of the circumflex. He was seen at [facility] for chest pain and non-ST elevated [place] 2010. At that time, his heart catheterization revealed an acutely occluded right coronary artery, significant disease in the moderate size third obtuse marginal branch with moderate disease in the LAD and left circumflex. Ejection fraction was 3540 percent. He underwent successful stenting of the distal RCA. Later in his room, patient developed ventricular fibrillation and was quickly resuscitated and underwent heart catheterization and underwent angioplasty and stenting of the PLV branch of the right coronary artery. On 09/14/2010, patient underwent a single chamber cardioverter defibrillator implantation. His echoca rdiogram revealed mild pulmonary hypertension, ejection fraction 40% at that time. In 2014 he underwent heart catheterization finding 45% proximal right coronary artery stenosis and significant mid LAD lesion which underwent PTCA and stenting of the mid LAD. Patient's also gives history of a septic knee joint needing washout which was done at [facility] at that time patient developed atrial fibrillation in the postop period. He also had a run of V. tach for which his AICD fired. Ever since that episode of sepsis, patient has had chronic kidney disease. Regarding his diabetes, he follows with Dr. Yoanna Mccormick. He is currently on Trulicity 1.5mg weekly, Lantus 56 units in the morning and recently changed to 18 units of NovoLog with meals. His last hemoglobin A1c was 7.4 in December at the [facility]. Regarding rheumatoid arthritis and psoriatic arthritis, patient follows with Dr. Shelton. In the past he has been on methotrexate, Enbrel and Humira. He was recently on Ilaris but this was stopped when he started having cardiac problems as there is concern for arrhythmia. He contacted his vocational case manager and she had recommended stopping it. The patient have follow-up in the cardiology office in December of this year and underwent a Lexiscan stress test that did not demonstrate any ischemia. Over the past 3-4 weeks she has had intermittent substernal chest pain with radiation to his arms. He was recommended for heart catheterization which was completed yesterday that found proximal LAD stenosis 60%, mid LAD stenosis 30%, circumflex stenosis 90% and RCA stenosis 60. Cardiothoracic surgery was consulted for recommendations regarding CABG versus stenting. Carotid ultrasound revealed mild plaque bilateral bifurcations but no significant stenosis. Chest x-ray reveals no acute cardiopulmonary process. Underlying COPD. patient has been evaluated by cardiothoracic surgery. Plan for tomorrow is a repeat heart catheterization to further evaluate LAD. 03/26: Patient underwent heart catheterization today with Dr. SANAM Hinds finding significant lesion in the proximal LAD and area of 2.6 mm2 also within the left main and heavy circumferential desiccation lesion in the area of 3.2 mm2. Both were deemed significant and requires bypass surgery. The patient is seen today while in the recovery area. He denies having any chest pain or shortness of breath at this time. Blood sugars will need to be well-controlled and we will make arrangements for Levemir to be 30 units in the morning and 40 at bedtime. Objective - Vital Signs Vital signs: Vital Signs Temp 98 F 03/26/19 07:50 Pulse 74 03/26/19 12:30 Resp 16 03/26/19 12:30 BP 147/73 03/26/19 12:30 Pulse Ox 97 03/26/19 12:30 Intake & Output 03/25/19 03/26/19 03/26/19 18:59 06:59 18:59 Intake Total 420 222 140 Output Total 200 Balance 420 222 -60 Intake: IV 50 Oral 420 222 90 Output: Urine 200 Other: Voiding Method Toilet Toilet Toilet # Voids 1 - Exam Review of Systems Constitutional: Reports fatigue, Denies chills, Denies fever, Denies lethargy, Denies malaise, Denies poor appetite, Denies weight loss Eyes: denies blurred vision Ears, nose, mouth and throat: Denies headache, Denies sore throat Cardiovascular: Reports chest pain, Reports decreased exercise tolerance, Reports dyspnea on exertion, Reports shortness of breath, Denies lightheadedness, Denies palpitations, Denies syncope Respiratory: Reports dyspnea, Denies cough, Denies cough with sputum, Denies exc essive sputum, Denies hemoptysis, Denies home oxygen, Denies respiratory infections, Denies wheezing Gastrointestinal: Denies abdominal pain, Denies diarrhea, Denies nausea, Denies vomiting Genitourinary: Denies dysuria, Denies urinary frequency, Denies urinary hesitancy, Denies urinary retention Musculoskeletal: Denies frequent falls, Denies gait dysfunction, Denies myalgias Integumentary: Denies pruritus, Denies rash, Denies wounds Neurological: Denies change in mentation, Denies change in speech, Denies numbness, Denies seizures, Denies weakness Psychiatric: Denies anxiety, Denies depression Endocrine: Denies fatigue, Denies weight change Gen: This is a 69-year-old gentleman. He is resting on stretcher appears to be in no acute distress. Patient's and his sister at bedside. HEENT: Head is atraumatic, normocephalic. Pupils equal, round. Sclerae is anicteric. Conjunctiva pink. Mucous membranes of the mouth are moist. No thrush noted NECK: Supple. No JVD. No lymphadenopathy. No thyromegaly. LUNGS: Clear to auscultation. No wheezes or rhonchi. No intercostal retractions. HEART: Regular rate and rhythm. No murmur. ABDOMEN: Soft. Morbidly obese. Bowel sounds are present. No tenderness. EXTREMITIES: No pedal edema. No calf tenderness. Dorsalis pedis is +2 bilaterally. NEUROLOGICAL: Patient is awake, alert and oriented x3. Cranial nerves 2 through 12 are grossly intact. - Labs CBC & Chem 7: 03/25/19 06:42 03/26/19 09:39 Labs: Abnormal Lab Results - Last 24 Hours (Table) 03/25/19 03/25/19 03/25/19 Range/Units 06:42 16:27 20:02 Chloride (98-107) mmol/L BUN (9-20) mg/dL Creatinine (0.66-1.25) mg/dL Glucose (74-99) mg/dL POC Glucose (mg/dL) 160 H 180 H (75-99) mg/dL Hemoglobin A1c 7.3 H (4.0-6.0) % 03/26/19 03/26/19 03/26/19 Range/Units 06:51 09:39 12:01 Chloride 108 H (98-107) mmol/L BUN 27 H (9-20) mg/dL Creatinine 1.56 H (0.66-1.25) mg/dL Glucose 138 H (74-99) mg/dL POC Glucose (mg/dL) 140 H 114 H (75-99) mg/dL Hemoglobin A1c (4.0-6.0) % Microbiology - Last 24 Hours (Table) 03/25/19 09:30 Nasal Screen MRSA/MSSA - Preliminary Nasal Swab Assessment and Plan Plan: 1. Triple-vessel coronary artery disease status post heart catheterization with plan for CABG. Continue aspirin 81 mg daily, atorvastatin, Imdur 30 mg daily, Lopressor. 2. History of non-ST elevated myocardial infarction, coronary artery disease and multiple stents. 3. Diabetes mellitus type 2 with diabetic neuropathy. Patient is normally on Lantus 36 units in the morning and NovoLog 18 units 3 times daily along with scale. Continue Levemir 30 units in the morning and increase to 40 units at bedtime, continue NovoLog scale. 4. Paroxysmal atrial fibrillation. Eliquis is on hold. Continue Lopressor 100 mg twice daily. 5. Hypertension. Continue Lopressor, losartan 50 mg daily. 6. Hyperlipidemia. Continue atorvastatin 40 mg daily 7. Chronic kidney disease. Monitor renal function and avoid nephrotoxic agents. 8. Obstructive sleep apnea with home CPAP. 9. COPD, stable without exacerbation. 10. History of ventricular tachycardia and cardiomyopathy status post AICD, stable 11. Gastroesophageal reflux disease. Continue Protonix 12. Rheumatoid arthritis and psoriatic arthritis, stable 13. Chronic gout. Continue allopurinol 100 mg twice daily. 14. Benign prostatic hypertrophy. Continue tamsulosin 0.4 mg daily. Monitor for retention. 15. History of left knee septic arthroplasty. Stable. Impression and plan of care have been directed as dictated by the signing physician. Leigh Bailey nurse practitioner acting as scribe for signing physician.
--- NOTE | 2019-03-26 15:28 | CC ---
CARDIAC CATHETERIZATION REPORT DATE OF SERVICE: 03/26/2019. PROCEDURE PERFORMED: 1. Coronary angiography of the left coronary artery. 2. Intravascular ultrasound of the mid, proximal left anterior descending coronary artery and left main coronary artery. PERFORMED BY: Dr. Tim Hinds. SEDATION: Moderate conscious sedation time was 43 minutes. Patient was administered Versed. His oxygen saturation, hemodynamics and EKG were monitored closely. PROCEDURE NOTE: Under the strict aseptic precautions and local anesthesia, a 6-Italian introducer was placed in the right femoral artery. Technically this was somewhat difficult because of scar tissue. I initially used a JL4 catheter but I had difficulty cannulating the left main coronary artery, switched over to an XB LAD 3.5. With this, I was able to seat the catheter well. A run-through wire was used to cross the proximal LAD and the wire was kept in the mid to distal LAD. The patient received 6000 units of intravenous heparin which is almost 60 international units per kg. He also received intracoronary nitroglycerin. Under fluoroscopic guidance, the ultrasound catheter was advanced and positioned in the LAD well beyond the areas of interest. A manual pullback was performed. Recordings were obtained. The recordings were then reviewed. There is a significant lesion in the proximal LAD just proximal to the diagonal branch and the area is about 2.6 mm2. There is a heavy calcification of the LAD. The mid LAD beyond the stented segment also had a significant calcification and area of about 2.2 mm2. The left main also had a significant heavy calcification circumferential and the area was about 3.2 mm2. Procedure was performed uneventfully. Ultrasound catheter and wire as well as the guide catheter were taken out. Sheath was sutured in and ACT was 245 and will be pulled once it is less than 170. Results were discussed with the patient and family. FINAL IMPRESSION: This patient has significant lesion in the proximal LAD and left main as confirmed by IVUS. I am advising aortocoronary bypass surgery with the RAMIREZ to LAD, vein graft to the diagonal, obtuse marginal branch and 2 branches of RCA. I left a message for Dr. Parker. NICOLE / ANNA: [id number] /
[2019-03-26 16:48] LABS: Glucose,Whole Blood 126 mg/dL (75-99)
[2019-03-26] MEDS: NITROGLYCERIN SL TABS 0.4 MG TAB SUBLINGUAL PRN ×2 (19:16→19:22)
[2019-03-26 20:11] LABS: Glucose,Whole Blood 243 mg/dL (75-99)
[2019-03-26] MEDS: MUPIROCIN 2% OINT 22 GM TUBE TOPICAL SCH (20:35)
[2019-03-27] MEDS: SODIUM CHLORIDE 0.9% 1,000 ML IV SCH ×3 (04:51→21:05)
[2019-03-27 06:41] LABS: Glucose,Whole Blood 135 mg/dL (75-99)
[2019-03-27] MEDS: INSULIN ASPART (NovoLOG) 100 UNIT/ML VIAL SQ SCH ×6 (06:43→20:43)
[2019-03-27] MEDS ORDERED: MD COMMUNICATION TO PHARMACY 1 EACH MISC PO ONE ×4 (07:23)
[2019-03-27 07:29] LABS: HGB 12.1 gm/dL (13.0-17.5); MCH 30.2 pg (25.0-35.0); MCHC 34.6 g/dL (31.0-37.0); MCV 87.2 fL (80.0-100.0); Mean Platelet Volume 6.2; Platelet Count 109 k/uL (150-450); Poikilocytosis Slight; RBC 4.02 m/uL (4.30-5.90); RDW 15.4 % (11.5-15.5); WBC 5.2 k/uL (3.8-10.6)
[2019-03-27 07:42] LABS: Albumin 3.6 g/dL (3.5-5.0); Calcium 9.4 mg/dL (8.4-10.2); Potassium 4.6 mmol/L (3.5-5.1); Total Bilirubin 0.7 mg/dL (0.2-1.3); Total Protein 6.2 g/dL (6.3-8.2)
[2019-03-27] MEDS: INSULIN DETEMIR (LEVEMIR) 100 UNIT/ML SYR SQ SCH (08:54)
[2019-03-27] MEDS: MAGNESIUM OXIDE 400 MG TAB PO SCH (08:55)
[2019-03-27] MEDS: TAMSULOSIN 0.4 MG CAP.ER.24H PO SCH (08:55)
[2019-03-27] MEDS: CALCIUM CARB-VIT D 500MG-200UN 1 EACH TAB PO SCH ×2 (08:55→21:06)
[2019-03-27] MEDS: ALLOPURINOL 100 MG TAB PO SCH ×2 (08:55→21:06)
[2019-03-27] MEDS: METOPROLOL TARTRATE 50 MG TAB PO SCH ×2 (08:55→21:06)
[2019-03-27] MEDS: LOSARTAN 50 MG TAB PO SCH (08:55)
[2019-03-27] MEDS: ASPIRIN 81 MG PO SCH (08:55)
[2019-03-27] MEDS: ISOSORBIDE MONONITRATE ER 30 MG TAB.ER.24H PO SCH (08:55)
[2019-03-27] MEDS: PANTOPRAZOLE 40 MG TABLET PO SCH (08:55)
[2019-03-27] MEDS: ATORVASTATIN 40 MG TAB PO SCH (08:55)
[2019-03-27] MEDS: MUPIROCIN 2% OINT 22 GM TUBE TOPICAL SCH ×2 (08:56→21:06)
--- NOTE | 2019-03-27 11:21 | P.PN ---
Subjective Progress Note Date: 03/27/19 Principal diagnosis: Triple-vessel coronary artery disease with history of coronary artery disease and myocardial infarction with multiple stents to his right coronary artery and left anterior descending coronary artery, medical history significant for ventricular fibrillation arrest after stenting in 2010 with placement of Medtronic AICD, hypertension, hyperlipidemia, chronic kidney disease with a baseline creatinine of 1.7, diabetes mellitus type 2, paroxysmal atrial fibril lation on chronic Eliquis for anticoagulation, chronic obstructive pulmonary disease, morbid obesity, obstructive sleep apnea with home CPAP use and family history of heart disease. This is 73-year-old gentleman who is followed by Dr. Erasmo Guevara on an outpatient basis. Recently, the patient has been having some progressive shortness of breath and complaints of substernal chest pain. Subsequently he was seen by his poolroom/poolhall manager Dr. SANAM Hinds in December 2018 and underwent a Lexiscan stress test w hich showed no ischemia. For further evaluation he was recommended to undergo a heart catheterization which was completed yesterday and demonstrated him to have a 60% stenosis to his proximal left anterior descending coronary artery, a 30% stenosis to his mid left anterior descending coronary artery, a 90% stenosis to a circumflex coronary artery and a 60% stenosis to his right coronary artery. Due to the patient's symptoms and cardiac catheterization results he was admitted to the observation unit and a consult was placed to Dr. Remington Parker from cardiothoracic surgery for further evaluation and treatment recommendations on possible myocardial revascularization surgery. The patient is laying in bed on the cardiac stepdown unit. He is in no acute distress. He reports that he has been having some continued episodes of shortness of breath with activity but denies any complaints of pain at this time. He reports that he did have an episode of chest discomfort last evening which was relieved with nitroglycerin. The patient underwent coronary angiography of the left coronary artery with intravascular ultrasound of the mid, proximal left anterior descending coronary artery and the left main coronary artery yesterday performed by Dr. SANAM Hinds. The study demonstrated him to have significant lesion in the proximal left anterior descending coronary artery and left main coronary artery confirmed by intravascular ultrasound. The results of the IVUS were discussed with the patient and his present at his bedside last evening, risks and benefits of myocardial revascularization surgery including the STS risk score were discussed with the patient and he wishes to proceed with myocardial vascularization surgery. Subsequently, he has been scheduled for myocardial revascularization surgery to be performed by Dr. Daphne Hurst on 03/30/2019. The patient remains afebrile, oxygen saturation are 96% on room air and he is achieving around 2000 mL on his incentive spirom etry. Objective - Vital Signs Vital signs: Vital Signs Temp 98.1 F 03/27/19 08:00 Pulse 81 03/27/19 08:00 Resp 16 03/27/19 08:00 BP 151/81 03/27/19 08:00 Pulse Ox 96 03/27/19 08:00 Intake & Output 03/26/19 03/27/19 03/27/19 18:59 06:59 18:59 Intake Total 362 240 Output Total 350 650 Balance 12 -650 240 Weight 104 kg Intake: IV 50 Oral 312 240 Output: Urine 350 650 Other: Voiding Method Urinal Urinal # Voids 1 # Bowel Movements 1 - Constitutional General appearance: Present: cooperative, morbidly obese, no acute distress - Respiratory Details: Lung sounds are essentially clear throughout. Respirations are symmetrical and nonlabored. No wheezes, crackles or rhonchi appreciated. Oxygen saturation 96% on room air. Achieving 2000 mL on his incentive spirometry. - Cardiovascular Details: Regular rhythm and rate. S1 and S2 present, negative for S3, gallop or murmur. +1 edema to his bilateral lower extremities. - Gastrointestinal Gastrointestinal Comment(s): Abdomen soft, nontender and nondistended. Active bowel sounds present in all 4 abdominal quadrants. No guarding or rigidity. No organomegaly appreciated. - Integumentary Integumentary Comment(s): Skin is warm and dry. No clubbing or cyanosis is present. No rash is present. - Neurologic Neurologic Comment(s): No focal neurological deficits present. Neurologic: Present: CNII-XII intact - Musculoskeletal Musculoskeletal: Present: gait normal, generalized weakness, strength equal bilaterally - Psychiatric Psychiatric: Present: A&O x's 3, appropriate affect, intact judgment & insight - Allied health notes Allied health notes reviewed: nursing - Labs CBC & Chem 7: 03/27/19 06:30 03/27/19 06:30 Labs: Abnormal Lab Results - Last 24 Hours (Table) 03/26/19 03/26/19 03/26/19 Range/Units 12:01 16:46 20:09 RBC (4.30-5.90) m/uL Hgb (13.0-17.5) gm/dL Hct (39.0-53.0) % Plt Count (150-450) k/uL Chloride (98-107) mmol/L BUN (9-20) mg/dL Creatinine (0.66-1.25) mg/dL Glucose (74-99) mg/dL POC Glucose (mg/dL) 114 H 126 H 243 H (75-99) mg/dL Total Protein (6.3-8.2) g/dL 03/27/19 03/27/19 03/27/19 Range/Units 06:30 06:30 06:39 RBC 4.02 L (4.30-5.90) m/uL Hgb 12.1 L (13.0-17.5) gm/dL Hct 35.0 L (39.0-53.0) % Plt Count 109 L (150-450) k/uL Chloride 108 H (98-107) mmol/L BUN 25 H (9-20) mg/dL Creatinine 1.63 H (0.66-1.25) mg/dL Glucose 119 H (74-99) mg/dL POC Glucose (mg/dL) 135 H (75-99) mg/dL Total Protein 6.2 L (6.3-8.2) g/dL Microbiology - Last 24 Hours (Table) 03/25/19 09:30 Nasal Screen MRSA/MSSA - Final Nasal Swab Assessment and Plan Assessment: 1. Triple-vessel coronary artery disease, with left main disease 2. History of coronary artery disease and myocardial infarction with multiple stents to the RCA and LAD 3. 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 Hypertension 5. Hyperlipidemia 6. Type 2 diabetes mellitus 7. Chronic kidney disease with baseline creatinine 1.7 8. Paroxysmal atrial fibrillation on chronic Eliquis for anticoagulation 9. Chronic obstructive pulmonary disease 10. Obstructive sleep apnea with home CPAP use 11. Morbid obesity 12. Family history of heart disease Plan: 1. Continue to maximize medical therapy with aspirin, statin, losartan, and beta cely. 2. He is scheduled for myocardial revascularization surgery with RAMIREZ, left radial endoscopic harvest, endoscopic vein harvest, modified Maze procedure, exclusion of left atrial appendage and intraoperative transesophageal echocardiogram to be performed by Dr. Daphne Hurst on 03/30/2019. Risks and benefits of the surgery have been discussed with the patient by Dr. Hurst including the STS risk score. 3. Continue to encourage use of his incentive spirometry every hour while awake. 4. GI and DVT prophylaxis. 5. Medical management and other comorbidities per primary care service. 6. Continue to reinforce preoperative teaching. 7. More recommendations to follow based on patient's clinical course. Time with Patient: Greater than 30
--- NOTE | 2019-03-27 12:09 | P.PN ---
Subjective Progress Note Date: 03/27/19 This is a 73-year-old male patient with past medical history for coronary artery disease, paroxysmal atrial fibrillation on eliquis, diabetes mellitus type II insulin requiring with diabetic neuropathy, chronic kidney disease, kidney stones, COPD, obstructive sleep apnea with CPAP, hyperlipidemia, hypertension, and rheumatoid arthritis, gout, benign prostatic hypertrophy. 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 He had a heart catheterization done in 2005 that showed moderate disease involving the LAD and diagonal was mild involvement patient had some irregular lesion of the circumflex. He was seen at [facility] for chest pain and non-ST elevated CT 2010. At that time, his heart catheterization revealed an acutely occluded right coronary artery, significant disease in the moderate size third obtuse marginal branch with moderate disease in the LAD and left circumflex. Ejection fraction was 3540 percent. He underwent successful stenting of the distal RCA. Later in his room, patient developed ventricular fibrillation and was quickly resuscitated and underwent heart catheterization and underwent angioplasty and stenting of the PLV branch of the right coronary artery. On 09/14/2010, patient underwent a single chamber cardioverter defibrillator implantation. His echocardiogram revealed mild pulmonary hypertension, ejection fraction 40% at that time. In 2014 he underwent heart catheterization finding 45% proximal right coronary artery stenosis and significant mid LAD lesion which underwent PTCA and stenting of the mid LAD. Patient's also gives history of a septic knee joint needing washout which was done at [facility] at that time patient developed atrial fibrillation in the postop period. He also had a run of V. tach for which his AICD fired. Ever since that episode of sepsis, patient has had chronic kidney disease. The patient have follow-up in the cardiology office in December of this year and underwent a Lexiscan stress test that did not demonstrate any ischemia. Over the past 3-4 weeks she has had intermittent substernal chest pain with radiation to his arms. He was recommended for heart catheterization which was completed yesterday that found proximal LAD stenosis 60%, mid LAD stenosis 30%, circumflex stenosis 90% and RCA stenosis 60. Cardiothoracic surgery was consulted for recommendations regarding CABG versus stenting. The initial recommendation from cardiothoracic surgery was that the patient would benefit from an PAWAN and/or FFR of the LAD. was taken to the cardiac catheterization lab by Dr. BR Hinds, an PWAAN was performed which confirmed a significant lesion in the proximal LAD and left main, Dr. Hinds's advice was coronary artery bypass grafting surgery with RAMIREZ to the LAD, saphenous vein graft to the diagonal, obtuse marginal, and 2 branches of the RCA. Patient was again reevaluated by cardiothoracic surgery today, he is now scheduled for myocardial revascularization surgery to be performed by Dr. cosme parks on March 30. Patient did have an episode of chest discomfort through the night last night relieved with sublingual nitroglycerin. At the time of my examination this morning he is currently chest pain-free. Blood pressure 144/70 with a heart rate in the 70s, 96% on room air. White blood cell count 5.2, hemoglobin 12.1, platelet count 109. Sodium 142, potassium 4.6, BUN 25 and creatinine 1.6. Objective - Vital Signs Vital signs: Vital Signs Temp 98.1 F 03/27/19 08:00 Pulse 76 03/27/19 11:36 Resp 16 03/27/19 11:36 BP 144/74 03/27/19 11:36 Pulse Ox 96 03/27/19 11:36 Intake & Output 03/26/19 03/27/19 03/27/19 18:59 06:59 18:59 Intake Total 362 240 Output Total 350 650 Balance 12 -650 240 Weight 104 kg Intake: IV 50 Oral 312 240 Output: Urine 350 650 Other: Voiding Method Urinal Urinal # Voids 1 # Bowel Movements 1 - Exam 73-year-old gentleman in no acute distress at the time of my examination HEENT: Head is atraumatic, normocephalic. Pupils equal, round. Sclerae is anicteric. Conjunctiva pink. Mucous membranes of the mouth are moist. No thrush noted NECK: Supple. No JVD. No lymphadenopathy. No thyromegaly. LUNGS: Clear to auscultation. No wheezes or rhonchi. No intercostal retractions. HEART: Regular rate and rhythm. No murmur. ABDOMEN: Soft. Morbidly obese. Bowel sounds are present. No tenderness. EXTREMITIES: No pedal edema. No calf tenderness. Dorsalis pedis is +2 bilaterally. Right groin soft, no evidence of any hematoma. NEUROLOGICAL: Patient is awake, alert and oriented x3. Cranial nerves 2 through 12 are grossly intact. - Labs CBC & Chem 7: 03/27/19 06:30 03/27/19 06:30 Labs: Abnormal Lab Results - Last 24 Hours (Table) 03/26/19 03/26/19 03/26/19 Range/Units 12:01 16:46 20:09 RBC (4.30-5.90) m/uL Hgb (13.0-17.5) gm/dL Hct (39.0-53.0) % Plt Count (150-450) k/uL Chloride (98-107) mmol/L BUN (9-20) mg/dL Creatinine (0.66-1.25) mg/dL Glucose (74-99) mg/dL POC Glucose (mg/dL) 114 H 126 H 243 H (75-99) mg/dL Total Protein (6.3-8.2) g/dL 03/27/19 03/27/19 03/27/19 Range/Units 06:30 06:30 06:39 RBC 4.02 L (4.30-5.90) m/uL Hgb 12.1 L (13.0-17.5) gm/dL Hct 35.0 L (39.0-53.0) % Plt Count 109 L (150-450) k/uL Chloride 108 H (98-107) mmol/L BUN 25 H (9-20) mg/dL Creatinine 1.63 H (0.66-1.25) mg/dL Glucose 119 H (74-99) mg/dL POC Glucose (mg/dL) 135 H (75-99) mg/dL Total Protein 6.2 L (6.3-8.2) g/dL Microbiology - Last 24 Hours (Table) 03/25/19 09:30 Nasal Screen MRSA/MSSA - Final Nasal Swab Assessment and Plan Plan: Assessment and Plan: 1. Triple-vessel coronary artery disease status post heart catheterization. Patient scheduled for coronary artery bypass grafting surgery tomorrow. 2. History of non-ST elevated myocardial infarction, coronary artery disease and multiple stents. 3. Diabetes mellitus type 2 with diabetic neuropathy. 4. Paroxysmal atrial fibrillation. 5. Hypertension. 6. Hyperlipidemia. 7. Chronic kidney disease. 8. Obstructive sleep apnea with home CPAP. 9. COPD 10. History of ventricular tachycardia and ischemic cardiomyopathy status post AICD 11. Gastroesophageal reflux disease. 12. Rheumatoid arthritis Plan Patient is scheduled to undergo coronary bypass grafting surgery on Saturday, he will remain in the hospital until that time. We will continue to follow. DNP note has been reviewed, I agree with a documented findings and plan of care. Patient was seen and examined.
[2019-03-27 12:36] LABS: Glucose,Whole Blood 111 mg/dL (75-99)
[2019-03-27] MEDS: FLUTICASONE 50MCG/SPRAY NASAL 16GM EA NOSTRIL SCH (14:20)
[2019-03-27] MEDS: DOCUSATE 100 MG CAP PO SCH (14:20)
--- NOTE | 2019-03-27 14:27 | CONS ---
CONSULTATION This is a 73-year-old male that we were asked to see in consultation. The patient was recently evaluated for coronary artery disease. The patient was found to have a significant lesion in the proximal LAD and left main as confirmed by intravascular ultrasound and Dr. Hinds was advising bypass grafting with a RAMIREZ to LAD, vein graft to the diagonal, obtuse marginal branch and two branches of the RCA. Apparently Dr. Parker was consulted. The patient is not going to have surgery until Saturday. The patient did have a pulmonary function test. I actually read the PFT. His FEV1 was 1.75 L. His FVC was 2.24 L. His FEV 1% was 63 and his maximal voluntary ventilation was 65.6 L/minute. Based on the FEV1 and the MVV, the patient is at low increased operative risk. Currently, he is doing well. He is resting comfortably. He apparently does see my partner Dr. Silvestre for underlying COPD/chronic bronchitis. PAST MEDICAL HISTORY: Includes atrial fibrillation, COPD/chronic bronchitis, CAD, angina, heart failure, diabetes, GERD, hyperlipidemia, hypertension, myocardial infarction, osteoarthritis, pulmonary embolism, and sleep apnea syndrome. He also has a history of Kaur's palsy, neuropathy, and psoriatic arthritis. In addition, he has a history of gout and a prior history of ventricular tachycardia. SURGICAL HISTORY: Includes adenoidectomy, AICD placement, heart catheterization, stent placement, tonsillectomy, bilateral carpal tunnel release, left rotator cuff surgery, left knee surgery subsequent to infection and previous insertion of an AICD device. SOCIAL HISTORY: Significant that he is a lifelong nonsmoker. He denies any alcohol use and denies any illicit drug use. 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 FAMILY HISTORY: Positive for CAD in his father with triple bypass surgery. His mother with a history of endometrial cancer, hypertension, and pulmonary embolism. He also has a daughter who has cancer and pulmonary embolism. HOME MEDICATIONS: Include vitamin D3/calcium carbonate, insulin, metoprolol, Prilosec, Lasix, Imdur, Lipitor, hydrochlorothiazide, NovoLog insulin, losartan, allopurinol, Eliquis, colchicine, Trulicity, magnesium, Lopressor, Nitrostat, Flomax, and turmeric root extract. ALLERGIES: Include GABAPENTIN and SULFA ANTIBIOTICS. REVIEW OF SYSTEMS: CONSTITUTIONAL: Negative. NEUROLOGICAL: Negative. HEENT: Negative. CARDIOVASCULAR: Chest pain. PULMONARY: Negative. GI: Negative. : Negative. RHEUMATOLOGIC: Negative. IMMUNOLOGIC: Negative. ENDOCRINOLOGIC: Negative. DERMATOLOGIC: Negative. Current vital signs include temperature 98.1, heart rate 76, respiratory rate 16, blood pressure 144/74 mean 97, room-air saturation 96%. He appears in no acute distress. HEENT: Examination is grossly unremarkable. Mucous membranes are moist. No oral lesions. NECK: Supple. Full range of motion. No adenopathy or thyromegaly. Neck veins are flat. CARDIOVASCULAR: Examination reveals regular rhythm and rate. Heart rate 76. S1, S2 normal. LUNGS: Relatively clear. Breath sounds equal. There is no wheezes, rhonchi, or crackles. ABDOMEN: Soft. Bowel sounds are heard. EXTREMITIES: Intact. No cyanosis, clubbing, or edema. SKIN: Without rash. NEUROLOGIC: Examination is brief but nonfocal. LAB WORK: From today shows a white count of 5.2, hemoglobin 12.1, hematocrit 35, platelet count 109,000. Sodium, potassium normal, chloride is 108, CO2 is 27, anion gap is 7. BUN and creatinine were 25 and 1.63. Pulmonary function tests were reviewed. His FEV1 is 1.75 L. His FVC is 2.24 L. His FEV 1% is 63. His FEV1/FVC ratio 78. His MVV is 65.6 L/minute. Based on his FEV1, MVV, the patient is at low increased operative risk. Medications are reviewed. ASSESSMENT: 1. Status post coronary angiography and intravascular ultrasound with significant lesion noted in the proximal left anterior descending artery and left main as confirmed by intravascular ultrasound with bypass grafting being advised by the glue machine operator. 2. History of multiple medical problems and comorbidities as listed above including moderate chronic obstructive pulmonary disease. 3. A bedside spirometry suggesting low increased operative risk for general anesthesia. PLAN: The patient will be followed. Additional recommendations and suggestions are forthcoming. I explained to the patient that he would see him after surgery and help him be removed from mechanical ventilation. We did encourage him to start work on incentive spirometer as he would be doing this every hour post surgery once extubated. In addition, we recommend deep breathing, coughing, clearing of secretions after the surgical procedure, and once extubated. Additional recommendations and suggestions are forthcoming. All questions were answered. MMODL / IJN: [id number] /
--- NOTE | 2019-03-27 15:31 | P.PN ---
Subjective Progress Note Date: 03/27/19 This is a 73-year-old male patient of Dr. Guevara with past medical history for coronary artery disease, paroxysmal atrial fibrillation on eliquis, diabetes mellitus type II insulin requiring with diabetic neuropathy, chronic kidney disease, kidney stones, COPD, obstructive sleep apnea with CPAP, hyperlipidemia, hypertension, and rheumatoid arthritis and cirrhotic arthritis, gout, benign prostatic hypertrophy. His primary care physician is Dr. Guevara he follows with Dr. SANAM Hinds as his contract lead. He had a heart catheterization done in 2005 that showed moderate disease involving the LAD and diagonal was mild involvement patient had some irregular lesion of the circumflex. He was seen at [facility] for chest pain and non-ST elevated MT 2010. At that time, his heart catheterization revealed an acutely occluded right coronary artery, significant disease in the moderate size third obtuse marginal branch with moderate disease in the LAD and left circumflex. Ejection fraction was 3540 percent. He underwent successful stenting of the distal RCA. Later in his room, patient developed ventricular fibrillation and was quickly resuscitated and underwent heart catheterization and underwent angioplasty and stenting of the PLV branch of the right coronary artery. On 09/14/2010, patient underwent a single chamber cardioverter defibrillator implantation. His echoca rdiogram revealed mild pulmonary hypertension, ejection fraction 40% at that time. In 2014 he underwent heart catheterization finding 45% proximal right coronary artery stenosis and significant mid LAD lesion which underwent PTCA and stenting of the mid LAD. Patient's also gives history of a septic knee joint needing washout which was done at [facility] at that time patient developed atrial fibrillation in the postop period. He also had a run of V. tach for which his AICD fired. Ever since that episode of sepsis, patient has had chronic kidney disease. Regarding his diabetes, he follows with Dr. Yoanna Mccormick. He is currently on Trulicity 1.5mg weekly, Lantus 56 units in the morning and recently changed to 18 units of NovoLog with meals. His last hemoglobin A1c was 7.4 in December at the [facility]. Regarding rheumatoid arthritis and psoriatic arthritis, patient follows with Dr. Shelton. In the past he has been on methotrexate, Enbrel and Humira. He was recently on Ilaris but this was stopped when he started having cardiac problems as there is concern for arrhythmia. He contacted his swimming pool installer and servicer and she had recommended stopping it. The patient have follow-up in the cardiology office in December of this year and underwent a Lexiscan stress test that did not demonstrate any ischemia. Over the past 3-4 weeks she has had intermittent substernal chest pain with radiation to his arms. He was recommended for heart catheterization which was completed yesterday that found proximal LAD stenosis 60%, mid LAD stenosis 30%, circumflex stenosis 90% and RCA stenosis 60. Cardiothoracic surgery was consulted for recommendations regarding CABG versus stenting. Carotid ultrasound revealed mild plaque bilateral bifurcations but no significant stenosis. Chest x-ray reveals no acute cardiopulmonary process. Underlying COPD. patient has been evaluated by cardiothoracic surgery. Plan for tomorrow is a repeat heart catheterization to further evaluate LAD. 03/26: Patient underwent heart catheterization today with Dr. SANAM Hinds finding significant lesion in the proximal LAD and area of 2.6 mm2 also within the left main and heavy circumferential desiccation lesion in the area of 3.2 mm2. Both were deemed significant and requires bypass surgery. The patient is seen today while in the recovery area. He denies having any chest pain or shortness of breath at this time. Blood sugars will need to be well-controlled and we will make arrangements for Levemir to be 30 units in the morning and 40 at bedtime. 03/27: The patient complains of nasal congestion since he had his procedure yesterday. We will add Flonase. Regarding blood sugars nighttime blood sugar remains quite elevated and we will make additional changes to his insulins by adding NovoLog scheduled 3 units with each meal and increase nighttime Levemir to 45 units. He is scheduled for open heart on Saturday. Objective - Vital Signs Vital signs: Vital Signs Temp 98.1 F 03/27/19 08:00 Pulse 81 03/27/19 08:00 Resp 16 03/27/19 08:00 BP 151/81 03/27/19 08:00 Pulse Ox 96 03/27/19 08:00 Intake & Output 03/26/19 03/27/19 03/27/19 18:59 06:59 18:59 Intake Total 362 240 Output Total 350 650 Balance 12 -650 240 Weight 104 kg Intake: IV 50 Oral 312 240 Output: Urine 350 650 Other: Voiding Method Urinal Urinal # Voids 1 # Bowel Movements 1 - Exam Review of Systems Constitutional: Reports fatigue, Denies chills, Denies fever, Denies lethargy, Denies malaise, Denies poor appetite, Denies weight loss Eyes: denies blurred vision Ears, nose, mouth and throat: Denies headache, Denies sore throat, reports nasal congestion Cardiovascular: Reports chest pain, Reports decreased exercise tolerance, Reports dyspnea on exertion, Reports shortness of breath, Denies lightheadedness, Denies palpitations, Denies syncope Respiratory: Reports dyspnea, Denies cough, Denies cough with sputum, Denies excessive sputum, Denies hemoptysis, Denies home oxygen, Denies respiratory infections, Denies wheezing Gastrointestinal: Denies abdominal pain, Denies diarrhea, Denies nausea, Denies vomiting Genitourinary: Denies dysuria, Denies urinary frequency, Denies urinary hesitancy, Denies urinary retention Musculoskeletal: Denies frequent falls, Denies gait dysfunction, Denies myalgias Integumentary: Denies pruritus, Denies rash, Denies wounds Neurological: Denies change in mentation, Denies change in speech, Denies numbness, Denies seizures, Denies weakness Psychiatric: Denies anxiety, Denies depression Endocrine: Denies fatigue, Denies weight change Gen: This is a 69-year-old gentleman. He is resting on stretcher appears to be in no acute distress. Patient's at bedside. HEENT: Head is atraumatic, normocephalic. Pupils equal, round. Sclerae is anicteric. Conjunctiva pink. Mucous membranes of the mouth are moist. No thrush noted NECK: Supple. No JVD. No lymphadenopathy. No thyromegaly. LUNGS: Clear to auscultation. No wheezes or rhonchi. No intercostal retract ions. HEART: Regular rate and rhythm. No murmur. ABDOMEN: Soft. Morbidly obese. Bowel sounds are present. No tenderness. EXTREMITIES: No pedal edema. No calf tenderness. Dorsalis pedis is +2 sharon aterally. NEUROLOGICAL: Patient is awake, alert and oriented x3. Cranial nerves 2 through 12 are grossly intact. - Labs CBC & Chem 7: 03/27/19 06:30 03/27/19 06:30 Labs: Abnormal Lab Results - Last 24 Hours (Table) 03/26/19 03/26/19 03/26/19 Range/Units 09:39 12:01 16:46 RBC (4.30-5.90) m/uL Hgb (13.0-17.5) gm/dL Hct (39.0-53.0) % Plt Count (150-450) k/uL Chloride 108 H (98-107) mmol/L BUN 27 H (9-20) mg/dL Creatinine 1.56 H (0.66-1.25) mg/dL Glucose 138 H (74-99) mg/dL POC Glucose (mg/dL) 114 H 126 H (75-99) mg/dL Total Protein (6.3-8.2) g/dL 03/26/19 03/27/19 03/27/19 Range/Units 20:09 06:30 06:30 RBC 4.02 L (4.30-5.90) m/uL Hgb 12.1 L (13.0-17.5) gm/dL Hct 35.0 L (39.0-53.0) % Plt Count 109 L (150-450) k/uL Chloride 108 H (98-107) mmol/L BUN 25 H (9-20) mg/dL Creatinine 1.63 H (0.66-1.25) mg/dL Glucose 119 H (74-99) mg/dL POC Glucose (mg/dL) 243 H (75-99) mg/dL Total Protein 6.2 L (6.3-8.2) g/dL 03/27/19 Range/Units 06:39 RBC (4.30-5.90) m/uL Hgb (13.0-17.5) gm/dL Hct (39.0-53.0) % Plt Count (150-450) k/uL Chloride (98-107) mmol/L BUN (9-20) mg/dL Creatinine (0.66-1.25) mg/dL Glucose (74-99) mg/dL POC Glucose (mg/dL) 135 H (75-99) mg/dL Total Protein (6.3-8.2) g/dL Microbiology - Last 24 Hours (Table) 03/25/19 09:30 Nasal Screen MRSA/MSSA - Final Nasal Swab Assessment and Plan Plan: 1. Triple-vessel coronary artery disease status post heart catheterization. Thoracic surgery consult for CABG versus stenting. The patient is to undergo heart catheterization tomorrow with Dr. MARION ready to further evaluate LAD. Continue aspirin 81 mg daily, atorvastatin, Imdur 30 mg daily, Lopressor. 2. History of non-ST elevated myocardial infarction, coronary artery disease and multiple stents. 3. Diabetes mellitus type 2 with diabetic neuropathy. Patient is normally on Lantus 36 units in the morning and NovoLog 18 units 3 times daily along with scale. Continue Levemir 30 units in the morning and 45 units in the evening along with NovoLog 3 units before meals and NovoLog scale. 4. Paroxysmal atrial fibrillation. Eliquis is on hold. Continue Lopressor 100 mg twice daily. 5. Hypertension. Continue Lopressor, losartan 50 mg daily. 6. Hyperlipidemia. Continue atorvastatin 40 mg daily 7. Chronic kidney disease. Monitor renal function and avoid nephrotoxic agents. 8. Obstructive sleep apnea with home CPAP. 9. COPD, stable without exacerbation. 10. History of ventricular tachycardia and cardiomyopathy status post AICD, stable 11. Gastroesophageal reflux disease. Continue Protonix 12. Rheumatoid arthritis, stable 13. Chronic gout. Continue allopurinol 100 mg twice daily. 14. Benign prostatic hypertrophy. Continue tamsulosin 0.4 mg daily. Monitor for retention. 15. History of left knee septic arthroplasty. Stable. Impression and plan of care have been directed as dictated by the signing physician. Leigh Bailey nurse practitioner acting as scribe for signing ramon santiago.
[2019-03-27 17:11] LABS: Glucose,Whole Blood 112 mg/dL (75-99)
[2019-03-27 20:43] LABS: Glucose,Whole Blood 124 mg/dL (75-99)
[2019-03-27] MEDS ORDERED: INSULIN DETEMIR (LEVEMIR) 100 UNIT/ML SYR SQ SCH (21:00)
[2019-03-28 06:24] LABS: HGB 11.4 gm/dL (13.0-17.5); MCH 30.1 pg (25.0-35.0); MCHC 34.5 g/dL (31.0-37.0); MCV 87.1 fL (80.0-100.0); Mean Platelet Volume 6.8; Platelet Count 109 k/uL (150-450); RBC 3.79 m/uL (4.30-5.90); RDW 15.5 % (11.5-15.5)
[2019-03-28 06:32] LABS: Glucose,Whole Blood 158 mg/dL (75-99)
[2019-03-28 06:39] LABS: Calcium 9.5 mg/dL (8.4-10.2); Potassium 4.3 mmol/L (3.5-5.1)
[2019-03-28] MEDS: INSULIN ASPART (NovoLOG) 100 UNIT/ML VIAL SQ SCH ×7 (06:45→20:21)
[2019-03-28] MEDS: PANTOPRAZOLE 40 MG TABLET PO SCH (07:06)
[2019-03-28] MEDS: INSULIN DETEMIR (LEVEMIR) 100 UNIT/ML SYR SQ SCH ×2 (07:06→21:14)
--- NOTE | 2019-03-28 08:58 | P.PN ---
Subjective Progress Note Date: 03/28/19 Principal diagnosis: Triple-vessel coronary artery disease with history of coronary artery disease and myocardial infarction with multiple stents to his right coronary artery and left anterior descending coronary artery, medical history significant for ventricular fibrillation arrest after stenting in 2010 with placement of Medtronic AICD, hypertension, hyperlipidemia, chronic kidney disease with a baseline creatinine of 1.7, diabetes mellitus type 2, paroxysmal atrial fibril lation on chronic Eliquis for anticoagulation, chronic obstructive pulmonary disease, morbid obesity, obstructive sleep apnea with home CPAP use and family history of heart disease. This is 73-year-old gentleman who is followed by Dr. Erasmo Guevara on an outpatient basis. Recently, the patient has been having some progressive shortness of breath and complaints of substernal chest pain. Subsequently he was seen by his impress associate Dr. SANAM Hinds in December 2018 and underwent a Lexiscan stress test w hich showed no ischemia. For further evaluation he was recommended to undergo a heart catheterization which was completed yesterday and demonstrated him to have a 60% stenosis to his proximal left anterior descending coronary artery, a 30% stenosis to his mid left anterior descending coronary artery, a 90% stenosis to a circumflex coronary artery and a 60% stenosis to his right coronary artery. Due to the patient's symptoms and cardiac catheterization results he was admitted to the observation unit and a consult was placed to Dr. Remington Parker from cardiothoracic surgery for further evaluation and treatment recommendations on possible myocardial revascularization surgery. The patient is laying in bed on the cardiac stepdown unit. He is in no acute distress. Denies any further episodes of chest pain, although continues to have shortness of breath with activity. Oxygen saturations are 97% on room air. Achieving 1500 mL on his incentive spirometry with encouragement. Preoperative teaching reinforced with the patient. He is scheduled for myocardial revascularization surgery to be performed by Dr. Daphne Hurst on 03/30/2019. The patient remains afebrile. Objective - Vital Signs Vital signs: Vital Signs Temp 98.1 F 03/28/19 04:00 Pulse 68 03/28/19 04:00 Resp 16 03/28/19 04:00 BP 155/76 03/28/19 04:00 Pulse Ox 97 03/28/19 04:00 Intake & Output 03/27/19 03/28/19 03/28/19 18:59 06:59 18:59 Intake Total 720 540 360 Output Total 400 Balance 720 140 360 Weight 105.6 kg Intake: Oral 720 540 360 Output: Urine 400 Other: Voiding Method Toilet Urinal # Voids 2 1 # Bowel Movements 1 - Constitutional General appearance: Present: cooperative, morbidly obese, no acute distress - Respiratory Details: Lung sounds are essentially clear throughout. Respirations are symmetrical and nonlabored. No wheezes, crackles or rhonchi appreciated. Oxygen saturation 97% on room air. Achieving 1500 mL on his incentive spirometry. - Cardiovascular Details: Regular rhythm and rate. S1 and S2 present, negative for S3, gallop or murmur. +1 edema to his bilateral lower extremities. - Gastrointestinal Gastrointestinal Comment(s): Abdomen soft, nontender and nondistended. Active bowel sounds present in all 4 abdominal quadrants. No guarding or rigidity. No organomegaly appreciated. - Integumentary Integumentary Comment(s): Skin is warm and dry. No clubbing or cyanosis is present. No rash or abnormal pigmentation is present. - Neurologic Neurologic Comment(s): No focal neurological deficits present. Neurologic: Present: CNII-XII intact - Musculoskeletal Musculoskeletal: Present: gait normal, generalized weakness, strength equal bilaterally - Psychiatric Psychiatric: Present: A&O x's 3, appropriate affect, intact judgment & insight - Allied health notes Allied health notes reviewed: nursing - Labs CBC & Chem 7: 03/28/19 05:23 03/28/19 05:23 Labs: Abnormal Lab Results - Last 24 Hours (Table) 03/27/19 03/27/19 03/27/19 Range/Units 12:14 17:09 20:41 RBC (4.30-5.90) m/uL Hgb (13.0-17.5) gm/dL Hct (39.0-53.0) % Plt Count (150-450) k/uL BUN (9-20) mg/dL Creatinine (0.66-1.25) mg/dL Glucose (74-99) mg/dL POC Glucose (mg/dL) 111 H 112 H 124 H (75-99) mg/dL 03/28/19 03/28/19 03/28/19 Range/Units 05:23 05:23 06:31 RBC 3.79 L (4.30-5.90) m/uL Hgb 11.4 L (13.0-17.5) gm/dL Hct 33.0 L (39.0-53.0) % Plt Count 109 L (150-450) k/uL BUN 28 H (9-20) mg/dL Creatinine 1.52 H (0.66-1.25) mg/dL Glucose 150 H (74-99) mg/dL POC Glucose (mg/dL) 158 H (75-99) mg/dL Assessment and Plan Assessment: 1. Triple-vessel coronary artery disease, with left main disease 2. History of coronary artery disease and myocardial infarction with multiple stents to the RCA and LAD 3. 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 Hypertension 5. Hyperlipidemia 6. Type 2 diabetes mellitus 7. Chronic kidney disease with baseline creatinine 1.7 8. Paroxysmal atrial fibrillation on chronic Eliquis for anticoagulation 9. Chronic obstructive pulmonary disease 10. Obstructive sleep apnea with home CPAP use 11. Morbid obesity 12. Family history of heart disease Plan: 1. Continue to maximize medical therapy with aspirin, statin, losartan, and beta cely. 2. He is scheduled for myocardial revascularization surgery with RAMIREZ, left radial endoscopic harvest, endoscopic vein harvest, modified Maze procedure, exclusion of left atrial appendage and intraoperative transesophageal echocardiogram to be performed by Dr. Daphne Hurst on 03/30/2019. Risks and benefits of the surgery have been discussed with the patient by Dr. Hurst including the STS risk score. 3. Continue to encourage use of his incentive spirometry every hour while awake. 4. GI and DVT prophylaxis. 5. Medical management and other comorbidities per primary care service. 6. Continue to reinforce preoperative teaching. 7. Encourage use of his incentive spirometry every hour while awake. 8. More recommendations to follow based on patient's clinical course. Time with Patient: Greater than 30
[2019-03-28] MEDS: ALLOPURINOL 100 MG TAB PO SCH ×2 (09:16→20:20)
[2019-03-28] MEDS: ASPIRIN 81 MG PO SCH (09:16)
[2019-03-28] MEDS: CALCIUM CARB-VIT D 500MG-200UN 1 EACH TAB PO SCH ×2 (09:16→20:20)
[2019-03-28] MEDS: MAGNESIUM OXIDE 400 MG TAB PO SCH (09:16)
[2019-03-28] MEDS: TAMSULOSIN 0.4 MG CAP.ER.24H PO SCH (09:16)
[2019-03-28] MEDS: DOCUSATE 100 MG CAP PO SCH (09:16)
[2019-03-28] MEDS: ATORVASTATIN 40 MG TAB PO SCH (09:16)
[2019-03-28] MEDS: METOPROLOL TARTRATE 50 MG TAB PO SCH ×2 (09:17→20:20)
[2019-03-28] MEDS: FLUTICASONE 50MCG/SPRAY NASAL 16GM EA NOSTRIL SCH (09:17)
[2019-03-28] MEDS: MUPIROCIN 2% OINT 22 GM TUBE TOPICAL SCH ×2 (09:17→20:21)
[2019-03-28] MEDS: ISOSORBIDE MONONITRATE ER 30 MG TAB.ER.24H PO SCH (09:19)
[2019-03-28] MEDS: SODIUM CHLORIDE 0.9% 1,000 ML IV SCH (09:20)
--- NOTE | 2019-03-28 12:18 | P.PN ---
Subjective Progress Note Date: 03/28/19 Principal diagnosis: Coronary artery disease. The patient is seen today 03/28/2019 in follow-up on the selective care unit. He is awake and alert in no acute distress. No chest discomfort. No shortness of breath. He did utilize his home CPAP last night. He is currently main taining good O2 saturations in the mid 90s on room air. He's afebrile. Hemodynamically stable. Objective - Vital Signs Vital signs: Vital Signs Temp 97.7 F 03/28/19 08:00 Pulse 83 03/28/19 12:00 Resp 16 03/28/19 12:00 BP 142/95 03/28/19 12:00 Pulse Ox 95 03/28/19 12:00 Intake & Output 03/27/19 03/28/19 03/28/19 18:59 06:59 18:59 Intake Total 720 540 360 Output Total 400 Balance 720 140 360 Weight 105.6 kg Intake: Oral 720 540 360 Output: Urine 400 Other: Voiding Method Toilet Urinal # Voids 2 1 # Bowel Movements 1 - Exam GENERAL EXAM: Alert, pleasant 73-year-old gentleman, on room air, comfortable in no apparent distress. HEAD: Normocephalic. EYES: Normal reaction of pupils, equal size. NOSE: Clear with pink turbinates. THROAT: No erythema or exudates. NECK: No masses, no JVD. CHEST: No chest wall deformity. LUNGS: Equal air entry with no crackles, wheeze, rhonchi or dullness. CVS: S1 and S2 normal with no audible murmur, regular rhythm. ABDOMEN: No hepatosplenomegaly, normal bowel sounds, no guarding or rigidity. SPINE: No scoliosis or deformity SKIN: No rashes CENTRAL NERVOUS SYSTEM: No focal deficits, tone is normal in all 4 extremities. EXTREMITIES: There is no peripheral edema. No clubbing, no cyanosis. Peripheral pulses are intact. - Labs CBC & Chem 7: 03/28/19 05:23 03/28/19 05:23 Labs: Abnormal Lab Results - Last 24 Hours (Table) 03/27/19 03/27/19 03/27/19 Range/Units 12:14 17:09 20:41 RBC (4.30-5.90) m/uL Hgb (13.0-17.5) gm/dL Hct (39.0-53.0) % Plt Count (150-450) k/uL BUN (9-20) mg/dL Creatinine (0.66-1.25) mg/dL Glucose (74-99) mg/dL POC Glucose (mg/dL) 111 H 112 H 124 H (75-99) mg/dL 03/28/19 03/28/19 03/28/19 Range/Units 05:23 05:23 06:31 RBC 3.79 L (4.30-5.90) m/uL Hgb 11.4 L (13.0-17.5) gm/dL Hct 33.0 L (39.0-53.0) % Plt Count 109 L (150-450) k/uL BUN 28 H (9-20) mg/dL Creatinine 1.52 H (0.66-1.25) mg/dL Glucose 150 H (74-99) mg/dL POC Glucose (mg/dL) 158 H (75-99) mg/dL Assessment and Plan Assessment: Impression: #1 Coronary artery disease with significant disease involving the proximal LAD and left main. Awaiting coronary revascularization. #2 Previous history of coronary artery disease with stent placement #3 Ischemic cardiomyopathy and ventricular tachycardia status post AICD placement. #4 History of atrial fibrillation. #5 Chronic bronchitis, currently inactive and stable. FEV1 value 63% of predicted. #6 Hyperlipidemia. #7 Hypertension. #8 History of pulmonary embolism. #9 Obstructive sleep apnea utilizing CPAP. 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 #11 Diabetes mellitus. #12 Peripheral neuropathy. #13 History of gout. Plan: The patient was seen and evaluated by Dr. Menard. He remains stable from the pulmonary standpoint. The plan is for coronary revascularization on 03/30/2019. He is again educated regarding use of the incentive spirometer and cough and deep breathing exercises. Increase his activity as tolerated. We'll continue to follow. I, the cosigning physician, performed a history & physical examination of the patient. Lungs sounds are clear. Maintaining good O2 saturations in the 90s on room air. I discussed the assessment and plan of care with my nurse practitioner, Ashlie Rodas. I attest to the above note as dictated by her.
[2019-03-28 12:29] LABS: Glucose,Whole Blood 146 mg/dL (75-99)
--- NOTE | 2019-03-28 13:34 | P.PN ---
Subjective Progress Note Date: 03/28/19 This is a 73-year-old male patient of Dr. Guevara with past medical history for coronary artery disease, paroxysmal atrial fibrillation on eliquis, diabetes mellitus type II insulin requiring with diabetic neuropathy, chronic kidney disease, kidney stones, COPD, obstructive sleep apnea with CPAP, h yperlipidemia, hypertension, and rheumatoid arthritis and cirrhotic arthritis, gout, benign prostatic hypertrophy. His primary care physician is Dr. 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 He had a heart catheterization done in 2005 that showed moderate disease involving the LAD and diagonal was mild involvement patient had some irregular lesion of the circumflex. He was seen at [facility] for chest pain and non-ST elevated PA 2010. At that time, his heart catheterization revealed an acutely occluded right coronary artery, significant disease in the moderate size third obtuse marginal branch with moderate disease in the LAD and left circumflex. Ejection fraction was 3540 percent. He underwent successful stenting of the distal RCA. Later in his room, patient developed ventricular fibrillation and was quickly resuscitated and underwent heart catheterization and underwent angioplasty and stenting of the PLV branch of the right coronary artery. On 09/14/2010, patient underwent a single chamber cardioverter defibrillator implantation. His echocar diogram revealed mild pulmonary hypertension, ejection fraction 40% at that time. In 2014 he underwent heart catheterization finding 45% proximal right coronary artery stenosis and significant mid LAD lesion which underwent PTCA and stenting of the mid LAD. Patient's also gives history of a septic knee joint needing washout which was done at [facility] at that time patient developed atrial fibrillation in the postop period. He also had a run of V. tach for which his AICD fired. Ever since that episode of sepsis, patient has had chronic kidney disease. Regarding his diabetes, he follows with Dr. Yoanna Mccormick. He is currently on Trulicity 1.5mg weekly, Lantus 56 units in the morning and recently changed to 18 units of NovoLog with meals. His last hemoglobin A1c was 7.4 in December at [facility]. Regarding rheumatoid arthritis and psoriatic arthritis, patient follows with Dr. Shelton. In the past he has been on methotrexate, Enbrel and Humira. He was recently on Ilaris but this was stopped when he started having cardiac problems as there is concern for arrhythmia. He contacted his boilermaker helper and she had recommended stopping it. The patient have follow-up in the cardiology office in December of this year and underwent a Lexiscan stress test that did not demonstrate any ischemia. Over the past 3-4 weeks she has had intermittent substernal chest pain with radiation to his arms. He was recommended for heart catheterization which was completed yesterday that found proximal LAD stenosis 60%, mid LAD stenosis 30%, circumflex stenosis 90% and RCA stenosis 60. Cardiothoracic surgery was consulted for recommendations regarding CABG versus stenting. Carotid ultrasound revealed mild plaque bilateral bifurcations but no significant stenosis. Chest x-ray reveals no acute cardiopulmonary process. Underlying COPD. patient has been evaluated by cardiothoracic surgery. Plan for tomorrow is a repeat heart catheterization to further evaluate LAD. 03/26: Patient underwent heart catheterization today with Dr. SANAM Hinds finding significant lesion in the proximal LAD and area of 2.6 mm2 also within the left main and heavy circumferential desiccation lesion in the area of 3.2 mm2. Both were deemed significant and requires bypass surgery. The patient is seen today while in the recovery area. He denies having any chest pain or shortness of breath at this time. Blood sugars will need to be well-controlled and we will make arrangements for Levemir to be 30 units in the morning and 40 at bedtime. 03/27: The patient complains of nasal congestion since he had his procedure yesterday. We will add Flonase. Regarding blood sugars nighttime blood sugar remains quite elevated and we will make additional changes to his insulins by adding NovoLog scheduled 3 units with each meal and increase nighttime Levemir to 45 units. He is scheduled for open heart on Saturday. 03/28: Patient is resting comfortably in bed without any acute distress. Patient has no complaints at this time. Patient did not receive his Levemir last night due to his blood sugar being 112. Patient's blood sugar was elevated in 150s this morning due to missing the dose of Levemir. Patient is scheduled for open heart surgery on Saturday. Objective - Vital Signs Vital signs: Vital Signs Temp 97.7 F 03/28/19 08:00 Pulse 83 03/28/19 12:00 Resp 16 03/28/19 12:00 BP 142/95 03/28/19 12:00 Pulse Ox 95 03/28/19 12:00 Intake & Output 1103/28/19 03/28/19 18:59 06:59 18:59 Intake Total 720 540 600 Output Total 400 Balance 720 140 600 Weight 105.6 kg Intake: Oral 720 540 600 Output: Urine 400 Other: Voiding Method Toilet Urinal # Voids 2 1 # Bowel Movements 1 - Exam Review Of Systems: Constitutional: No fever, no chills, no night sweats. No weight change. No weakness, fatigue or lethargy. No daytime sleepiness. EENT: No headache. No blurred vision or double vision, no loss of vision. No loss of Hearing, no ringing in the ears, no dizziness. No nasal drainage or congestion. No epistaxis. No sore throat. Lungs: No shortness of breath, cough, no sputum production. No wheezing. Cardiovascular: No chest pain, no lower extremity edema. No palpitations. No paroxysmal nocturnal dyspnea. No orthopnea. No lightheadedness or dizziness. No syncopal episodes. Abdominal: no abdominal discomfort. No nausea, vomiting. no diarrhea. No constipation. No bloody or tarry stools. no loss of appetite. Genitourinary: No dysuria, increased frequency, urgency. No urinary retention. Musculoskeletal: No myalgias. No muscle weakness, no gait dysfunction, no frequent falls. No back pain. No neck pain. Integumentary: No wounds, no lesions. No rash or pruritus. No unusual bruising. No change in hair or nails. Neurologic: No aphasia. No facial droop. No change in mentation. No head injury. No headache. No paralysis. No paresthesia. Psychiatric: No depression. No anxiety. No mood swings. Endocrine: No abnormal blood sugars. No weight change. No excessive sweating or thirst. - Labs CBC & Chem 7: 03/28/19 05:23 03/28/19 05:23 Labs: Abnormal Lab Results - Last 24 Hours (Table) 03/27/19 03/27/19 03/28/19 Range/Units 17:09 20:41 05:23 RBC 3.79 L (4.30-5.90) m/uL Hgb 11.4 L (13.0-17.5) gm/dL Hct 33.0 L (39.0-53.0) % Plt Count 109 L (150-450) k/uL BUN (9-20) mg/dL Creatinine (0.66-1.25) mg/dL Glucose (74-99) mg/dL POC Glucose (mg/dL) 112 H 124 H (75-99) mg/dL 03/28/19 03/28/19 03/28/19 Range/Units 05:23 06:31 12:11 RBC (4.30-5.90) m/uL Hgb (13.0-17.5) gm/dL Hct (39.0-53.0) % Plt Count (150-450) k/uL BUN 28 H (9-20) mg/dL Creatinine 1.52 H (0.66-1.25) mg/dL Glucose 150 H (74-99) mg/dL POC Glucose (mg/dL) 158 H 146 H (75-99) mg/dL Assessment and Plan Plan: 1. Triple-vessel coronary artery disease status post heart catheterization. Thoracic surgery consult for CABG versus stenting. The patient is to undergo heart catheterization tomorrow with Dr. MARION ready to further evaluate LAD. Continue aspirin 81 mg daily, atorvastatin, Imdur 30 mg daily, Lopressor. 2. History of non-ST elevated myocardial infarction, coronary artery disease and multiple stents. 3. Diabetes mellitus type 2 with diabetic neuropathy. Patient is normally on Lantus 36 units in the morning and NovoLog 18 units 3 times daily along with scale. Continue Levemir 30 units in the morning and 45 units in the evening along with NovoLog 3 units before meals and NovoLog scale. We'll continue with Levemir 45 units in the evening. Discussed with nursing staff not to hold Levemir unless glucose is less than 90 4. Paroxysmal atrial fibrillation. Eliquis is on hold. Continue Lopressor 100 mg twice daily. 5. Hypertension. Continue Lopressor, losartan 50 mg daily. 6. Hyperlipidemia. Continue atorvastatin 40 mg daily 7. Chronic kidney disease. Monitor renal function and avoid nephrotoxic agents. 8. Obstructive sleep apnea with home CPAP. 9. COPD, stable without exacerbation. 10. History of ventricular tachycardia and cardiomyopathy status post AICD, stable 11. Gastroesophageal reflux disease. Continue Protonix 12. Rheumatoid arthritis, stable 13. Chronic gout. Continue allopurinol 100 mg twice daily. 14. Benign prostatic hypertrophy. Continue tamsulosin 0.4 mg daily. Monitor for retention. 15. History of left knee septic arthroplasty. Stable. Impression and plan of care have been directed as dictated by the signing physician. Jumana Valentine nurse practitioner acting as scribe for signing physician.
[2019-03-28 17:03] LABS: Glucose,Whole Blood 117 mg/dL (75-99)
[2019-03-28 20:09] LABS: Glucose,Whole Blood 141 mg/dL (75-99)
[2019-03-28] MEDS ORDERED: INSULIN DETEMIR (LEVEMIR) 100 UNIT/ML SYR SQ SCH (21:00)
--- NOTE | 2019-03-28 23:33 | PN ---
PROGRESS NOTE Mr. Muro is in sinus rhythm, comfortable, resting. He has unstable angina, significant triple-vessel disease. I am recommending aortocoronary bypass surgery. He was seen by Dr. Hurst. He is going to have surgery on Saturday. He is doing well. His renal function has improved. Creatinine is down to 1.52. Vitals are stable. JVD 1 cm. No carotid bruit. S1-S2 heard normally. Heart sounds heard distantly. Short systolic murmur at the base. Lungs are clear. Abdomen and lower extremity exam is unchanged. Plan is to continue current medications and proceed with aortocoronary bypass surgery on Saturday. Carotid Doppler is unremarkable. MMODL / IJN: [id number] /
[2019-03-29] MEDS: SODIUM CHLORIDE 0.9% 1,000 ML IV SCH ×2 (01:16→15:12)
[2019-03-29 02:09] LABS: Glucose,Whole Blood 160 mg/dL (75-99)
[2019-03-29 06:34] LABS: Glucose,Whole Blood 117 mg/dL (75-99)
[2019-03-29] MEDS: INSULIN ASPART (NovoLOG) 100 UNIT/ML VIAL SQ SCH ×7 (06:36→21:43)
[2019-03-29 06:47] LABS: Basophils # (A) 0.1 k/uL (0-0.2); Basophils % (A) 1 %; Eosinophils # (A) 0.2 k/uL (0-0.7); Eosinophils % (A) 2 %; HCT 33.9 % (39.0-53.0); HGB 11.9 gm/dL (13.0-17.5); Lymphocytes # (A) 1.4 k/uL (1.0-4.8); Lymphocytes % (A) 22 %; MCH 30.5 pg (25.0-35.0); MCHC 35.1 g/dL (31.0-37.0); Mean Platelet Volume 6.5; Monocytes # (A) 0.4 k/uL (0-1.0); Monocytes % (A) 7 %; Neutrophils # (A) 4.2 k/uL (1.3-7.7); Neutrophils % (A) 66 %; Platelet Count 119 k/uL (150-450); Poikilocytosis Slight; RDW 15.5 % (11.5-15.5); WBC 6.3 k/uL (3.8-10.6)
[2019-03-29 07:14] LABS: Albumin 3.8 g/dL (3.5-5.0); Calcium 9.5 mg/dL (8.4-10.2); Potassium 4.4 mmol/L (3.5-5.1); Total Bilirubin 0.8 mg/dL (0.2-1.3); Total Protein 6.5 g/dL (6.3-8.2)
[2019-03-29] MEDS: MAGNESIUM OXIDE 400 MG TAB PO SCH (08:11)
[2019-03-29] MEDS: ALLOPURINOL 100 MG TAB PO SCH ×2 (08:11→19:40)
[2019-03-29] MEDS: ASPIRIN 81 MG PO SCH (08:11)
[2019-03-29] MEDS: ATORVASTATIN 40 MG TAB PO SCH (08:11)
[2019-03-29] MEDS: DOCUSATE 100 MG CAP PO SCH (08:11)
[2019-03-29] MEDS: CALCIUM CARB-VIT D 500MG-200UN 1 EACH TAB PO SCH ×2 (08:11→19:40)
[2019-03-29] MEDS: PANTOPRAZOLE 40 MG TABLET PO SCH (08:11)
[2019-03-29] MEDS: TAMSULOSIN 0.4 MG CAP.ER.24H PO SCH (08:11)
[2019-03-29] MEDS: FLUTICASONE 50MCG/SPRAY NASAL 16GM EA NOSTRIL SCH (08:12)
[2019-03-29] MEDS: METOPROLOL TARTRATE 50 MG TAB PO SCH ×2 (08:12→19:40)
[2019-03-29] MEDS: INSULIN DETEMIR (LEVEMIR) 100 UNIT/ML SYR SQ SCH ×2 (08:12→21:42)
[2019-03-29] MEDS: MUPIROCIN 2% OINT 22 GM TUBE TOPICAL SCH ×2 (08:12→19:40)
[2019-03-29] MEDS: ISOSORBIDE MONONITRATE ER 30 MG TAB.ER.24H PO SCH (08:12)
--- NOTE | 2019-03-29 09:08 | P.PN ---
Subjective Progress Note Date: 03/29/19 Principal diagnosis: Triple-vessel coronary artery disease with history of coronary artery disease and myocardial infarction with multiple stents to his right coronary artery and left anterior descending coronary artery, medical history significant for ventricular fibrillation arrest after stenting in 2010 with placement of Medtronic AICD, hypertension, hyperlipidemia, chronic kidney disease with a baseline creatinine of 1.7, diabetes mellitus type 2, paroxysmal atrial fibril lation on chronic Eliquis for anticoagulation, chronic obstructive pulmonary disease, morbid obesity, obstructive sleep apnea with home CPAP use and family history of heart disease. This is 73-year-old gentleman who is followed by Dr. Erasmo Guevara on an outpatient basis. Recently, the patient has been having some progressive shortness of breath and complaints of substernal chest pain. 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 SANAM Hinds in December 2018 and underwent a Lexiscan stress test w hich showed no ischemia. For further evaluation he was recommended to undergo a heart catheterization which was completed yesterday and demonstrated him to have a 60% stenosis to his proximal left anterior descending coronary artery, a 30% stenosis to his mid left anterior descending coronary artery, a 90% stenosis to a circumflex coronary artery and a 60% stenosis to his right coronary artery. Due to the patient's symptoms and cardiac catheterization results he was admitted to the observation unit and a consult was placed to Dr. Remington Parker from cardiothoracic surgery for further evaluation and treatment recommendations on possible myocardial revascularization surgery. The patient is sitting up to the bedside edge on the cardiac stepdown unit. He is in no acute distress. Denies any further episodes of chest pain or shortness of breath. Oxygen saturations are 97% on room air. Achieving 1500 mL on his incentive spirometry with encouragement. Preoperative teaching reinforced with the patient. Questions branch and to the best my ability. He is scheduled for myocardial revascularization surgery to be performed by Dr. Daphne Hurst tomorrow 03/30/2019. The patient remains afebrile. He is complaining of some constipation. Reports he has been ambulating in the cardiac stepdown unit hallway. Objective - Vital Signs Vital signs: Vital Signs Temp 97.8 F 03/29/19 04:00 Pulse 89 03/29/19 04:00 Resp 18 03/29/19 04:00 BP 158/72 03/29/19 04:00 Pulse Ox 97 03/29/19 04:00 Intake & Output 03/28/19 03/29/19 03/29/19 19:59 06:59 18:59 Intake Total Output Total Balance Weight Intake: IV Invasive Line 3 Oral Output: Urine Other: # Voids - Constitutional General appearance: Present: cooperative, morbidly obese, no acute distress - Respiratory Details: Lung sounds essentially clear throughout. Respirations are symmetrical and nonlabored. Oxygen saturation 97% on room air. Achieving 1500 mL on his incentive spirometry. - Cardiovascular Details: Regular rhythm and rate. S1 and S2 present, negative for S3, gallop or murmur. No edema present. - Gastrointestinal Gastrointestinal Comment(s): Abdomen is soft, nontender and nondistended. Active bowel sounds present in all 4 abdominal quadrants. No guarding or rigidity. No organomegaly appreciated. - Integumentary Integumentary Comment(s): Skin is warm and dry. No clubbing or cyanosis is present. No rash or abnormal pigmentation is present. - Neurologic Neurologic: Present: CNII-XII intact - Musculoskeletal Musculoskeletal: Present: gait normal, strength equal bilaterally - Psychiatric Psychiatric: Present: A&O x's 3, appropriate affect, intact judgment & insight - Allied health notes Allied health notes reviewed: nursing - Labs CBC & Chem 7: 03/29/19 05:44 03/29/19 05:44 Labs: Abnormal Lab Results - Last 24 Hours (Table) 03/28/19 03/28/19 03/28/19 Range/Units 12:11 16:53 20:08 RBC (4.30-5.90) m/uL Hgb (13.0-17.5) gm/dL Hct (39.0-53.0) % Plt Count (150-450) k/uL BUN (9-20) mg/dL Creatinine (0.66-1.25) mg/dL Glucose (74-99) mg/dL POC Glucose (mg/dL) 146 H 117 H 141 H (75-99) mg/dL Crossmatch 03/29/19 03/29/19 03/29/19 Range/Units 02:08 05:44 05:44 RBC 3.90 L (4.30-5.90) m/uL Hgb 11.9 L (13.0-17.5) gm/dL Hct 33.9 L (39.0-53.0) % Plt Count 119 L (150-450) k/uL BUN (9-20) mg/dL Creatinine (0.66-1.25) mg/dL Glucose (74-99) mg/dL POC Glucose (mg/dL) 160 H (75-99) mg/dL Crossmatch See Detail 03/29/19 03/29/19 Range/Units 05:44 06:32 RBC (4.30-5.90) m/uL Hgb (13.0-17.5) gm/dL Hct (39.0-53.0) % Plt Count (150-450) k/uL BUN 28 H (9-20) mg/dL Creatinine 1.69 H (0.66-1.25) mg/dL Glucose 123 H (74-99) mg/dL POC Glucose (mg/dL) 117 H (75-99) mg/dL Crossmatch Assessment and Plan Assessment: 1. Triple-vessel coronary artery disease, with left main disease 2. History of coronary artery disease and myocardial infarction with multiple stents to the RCA and LAD 3. 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 Hypertension 5. Hyperlipidemia 6. Type 2 diabetes mellitus 7. Chronic kidney disease with baseline creatinine 1.7 8. Paroxysmal atrial fibrillation on chronic Eliquis for anticoagulation 9. Chronic obstructive pulmonary disease 10. Obstructive sleep apnea with home CPAP use 11. Morbid obesity 12. Family history of heart disease Plan: 1. Continue to maximize medical therapy with aspirin, statin and beta cely. 2. He is scheduled for myocardial revascularization surgery with RAMIREZ, left radial endoscopic harvest, endoscopic vein harvest, modified Maze procedure, exclusion of left atrial appendage and intraoperative transesophageal echocar diogram to be performed by Dr. Daphne Hurst tomorrow 03/30/2019. Risks and benefits of the surgery have been discussed with the patient by Dr. Hurst including the STS risk score. 3. Continue to encourage use of his incentive spirometry every hour while awake. 4. GI and DVT prophylaxis. 5. Medical management and other comorbidities per primary care service. 6. Continue to reinforce preoperative teaching. 7. Encourage use of his incentive spirometry every hour while awake. 8. Nothing by mouth after midnight. 9. Lactulose 20 g by mouth 1 now for constipation 10. More recommendations to follow based on patient's clinical course. Time with Patient: Greater than 30
[2019-03-29] MEDS ORDERED: LACTULOSE 20 GM/30 ML CUP PO ONE (09:15)
--- NOTE | 2019-03-29 10:55 | P.PN ---
Subjective Progress Note Date: 03/29/19 Principal diagnosis: Coronary artery disease On 03/29/2019 patient seen in follow-up on selective care unit, he is awake and alert, in no acute distress, room air pulse ox is 96%, doing well, denies any chest pain, no fever or chills, hemodynamically stable. 9 any chest x-ray today, today's labs have been reviewed. No acute issues overnight, lung sounds are clear, patient is awaiting surgery bypass grafting by Dr. Mcdaniel tomorrow on 03/30/2019. Objective - Vital Signs Vital signs: Vital Signs Temp 97.7 F 03/29/19 08:00 Pulse 74 03/29/19 08:00 Resp 16 03/29/19 08:00 BP 167/79 03/29/19 08:00 Pulse Ox 96 03/29/19 08:00 Intake & Output 03/28/19 03/29/19 03/29/19 19:59 06:59 18:59 Intake Total 360 Output Total Balance 360 Weight Intake: IV Invasive Line 3 Oral 360 Output: Urine Other: # Voids 1 - Exam GENERAL EXAM: Alert, pleasant, 73-year-old white male comfortable in no apparent distress. HEAD: Normocephalic/atraumatic. EYES: Normal reaction of pupils, equal size. Conjunctiva pink, sclera white. NOSE: Clear with pink turbinates. THROAT: No erythema or exudates. NECK: No masses, no JVD, no thyroid enlargement, no adenopathy. CHEST: No chest wall deformity. Symmetrical expansion. LUNGS: Equal air entry with no crackles, wheeze, rhonchi or dullness. CVS: Regular rate and rhythm, normal S1 and S2, no gallops, no murmurs, no rubs ABDOMEN: Soft, nontender. No hepatosplenomegaly, normal bowel sounds, no guarding or rigidity. EXTREMITIES: No clubbing, no edema, no cyanosis, 2+ pulses and upper and lower extremities. MUSCULOSKELETAL: Muscle strength and tone normal. SPINE: No scoliosis or deformity SKIN: No rashes CENTRAL NERVOUS SYSTEM: Alert and oriented -3. No focal deficits, tone is normal in all 4 extremities. PSYCHIATRIC: Alert and oriented -3. Appropriate affect. Intact judgment and insight. - Labs CBC & Chem 7: 03/29/19 05:44 11/03/19 05:44 Labs: Abnormal Lab Results - Last 24 Hours (Table) 03/28/19 03/28/19 03/28/19 Range/Units 12:11 16:53 20:08 RBC (4.30-5.90) m/uL Hgb (13.0-17.5) gm/dL Hct (39.0-53.0) % Plt Count (150-450) k/uL BUN (9-20) mg/dL Creatinine (0.66-1.25) mg/dL Glucose (74-99) mg/dL POC Glucose (mg/dL) 146 H 117 H 141 H (75-99) mg/dL Crossmatch 03/29/19 03/29/19 03/29/19 Range/Units 02:08 05:44 05:44 RBC 3.90 L (4.30-5.90) m/uL Hgb 11.9 L (13.0-17.5) gm/dL Hct 33.9 L (39.0-53.0) % Plt Count 119 L (150-450) k/uL BUN (9-20) mg/dL Creatinine (0.66-1.25) mg/dL Glucose (74-99) mg/dL POC Glucose (mg/dL) 160 H (75-99) mg/dL Crossmatch See Detail 03/29/19 03/29/19 Range/Units 05:44 06:32 RBC (4.30-5.90) m/uL Hgb (13.0-17.5) gm/dL Hct (39.0-53.0) % Plt Count (150-450) k/uL BUN 28 H (9-20) mg/dL Creatinine 1.69 H (0.66-1.25) mg/dL Glucose 123 H (74-99) mg/dL POC Glucose (mg/dL) 117 H (75-99) mg/dL Crossmatch Assessment and Plan Plan: Assessment: #1 Coronary artery disease with significant disease involving the proximal LAD and left main. Awaiting coronary revascularization. #2 Previous history of coronary artery disease with stent placement #3 Ischemic cardiomyopathy and ventricular tachycardia status post AICD placement. #4 History of atrial fibrillation. #5 Chronic bronchitis, currently inactive and stable. FEV1 value 63% of predicted. Patient also has a component of restrictive lung disease, with FEV1 to FVC ratio of 101% of predicted #6 Hyperlipidemia. #7 Hypertension. #8 History of pulmonary embolism. #9 Obstructive sleep apnea utilizing CPAP. 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 #11 Diabetes mellitus. #12 Peripheral neuropathy. #13 History of gout. Plan: Continue current medical treatment. Clinically patient denies any chest pain, or shortness of breath, lung sounds are clear, no acute events overnight, continue encouraging deep breathing and coughing, incentive spirometry use, preop spirometry results have been reviewed. Awaiting coronary revascula rization surgery tomorrow. We'll follow I performed a history & physical examination of the patient and discussed their management with my nurse practitioner, Jyothi Green. I reviewed the nurse ramon martinez's note and agree with the documented findings and plan of care. Lung sounds are positive for clear breath sounds. The findings and the impression was discussed with the patient. I attest to the documentation by the nurse practitioner. Time with Patient: Less than 30
[2019-03-29 12:10] LABS: Glucose,Whole Blood 95 mg/dL (75-99)
--- NOTE | 2019-03-29 13:53 | P.PN ---
Subjective Progress Note Date: 03/29/19 This is a 73-year-old male patient of Dr. Guevara with past medical history for coronary artery disease, paroxysmal atrial fibrillation on eliquis, diabetes mellitus type II insulin requiring with diabetic neuropathy, chronic kidney disease, kidney stones, COPD, obstructive sleep apnea with CPAP, h yperlipidemia, hypertension, and rheumatoid arthritis and cirrhotic arthritis, gout, benign prostatic hypertrophy. His primary care physician is Dr. 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 He had a heart catheterization done in 2005 that showed moderate disease involving the LAD and diagonal was mild involvement patient had some irregular lesion of the circumflex. He was seen at [facility] for chest pain and non-ST elevated CT 2010. At that time, his heart catheterization revealed an acutely occluded right coronary artery, significant disease in the moderate size third obtuse marginal branch with moderate disease in the LAD and left circumflex. Ejection fraction was 3540 percent. He underwent successful stenting of the distal RCA. Later in his room, patient developed ventricular fibrillation and was quickly resuscitated and underwent heart catheterization and underwent angioplasty and stenting of the PLV branch of the right coronary artery. On 09/14/2010, patient underwent a single chamber cardioverter defibrillator implantation. His echocar diogram revealed mild pulmonary hypertension, ejection fraction 40% at that time. In 2014 he underwent heart catheterization finding 45% proximal right coronary artery stenosis and significant mid LAD lesion which underwent PTCA and stenting of the mid LAD. Patient's also gives history of a septic knee joint needing washout which was done at [facility] at that time patient developed atrial fibrillation in the postop period. He also had a run of V. tach for which his AICD fired. Ever since that episode of sepsis, patient has had chronic kidney disease. Regarding his diabetes, he follows with Dr. Yoanna Mccormick. He is currently on Trulicity 1.5mg weekly, Lantus 56 units in the morning and recently changed to 18 units of NovoLog with meals. His last hemoglobin A1c was 7.4 in December at the [facility]. Regarding rheumatoid arthritis and psoriatic arthritis, patient follows with Dr. Shelton. In the past he has been on methotrexate, Enbrel and Humira. He was recently on Ilaris but this was stopped when he started having cardiac problems as there is concern for arrhythmia. He contacted his restaurant cashier and she had recommended stopping it. The patient have follow-up in the cardiology office in December of this year and underwent a Lexiscan stress test that did not demonstrate any ischemia. Over the past 3-4 weeks she has had intermittent substernal chest pain with radiation to his arms. He was recommended for heart catheterization which was completed yesterday that found proximal LAD stenosis 60%, mid LAD stenosis 30%, circumflex stenosis 90% and RCA stenosis 60. Cardiothoracic surgery was consulted for recommendations regarding CABG versus stenting. Carotid ultrasound revealed mild plaque bilateral bifurcations but no significant stenosis. Chest x-ray reveals no acute cardiopulmonary process. Underlying COPD. patient has been evaluated by cardiothoracic surgery. Plan for tomorrow is a repeat heart catheterization to further evaluate LAD. 03/26: Patient underwent heart catheterization today with Dr. SANAM Hinds finding significant lesion in the proximal LAD and area of 2.6 mm2 also within the left main and heavy circumferential desiccation lesion in the area of 3.2 mm2. Both were deemed significant and requires bypass surgery. The patient is seen today while in the recovery area. He denies having any chest pain or shortness of breath at this time. Blood sugars will need to be well-controlled and we will make arrangements for Levemir to be 30 units in the morning and 40 at bedtime. 03/27: The patient complains of nasal congestion since he had his procedure yesterday. We will add Flonase. Regarding blood sugars nighttime blood sugar remains quite elevated and we will make additional changes to his insulins by adding NovoLog scheduled 3 units with each meal and increase nighttime Levemir to 45 units. He is scheduled for open heart on Saturday. 03/28: Patient is resting comfortably in bed without any acute distress. Patient has no complaints at this time. Patient did not receive his Levemir last night due to his blood sugar being 112. Patient's blood sugar was elevated in 150s this morning due to missing the dose of Levemir. Patient is scheduled for open heart surgery on Saturday. 03/29: Patient is sitting up in bed with at the bedside. Patient is in no acute distress. Patient has no complaints or concerns at this time. He slept well last night. Patient was given his Levemir last night his blood sugar this morning was 120. Patient is waiting to have open heart surgery on Saturday. Questions were answered. Review Of Systems: Constitutional: No fever, no chills, no night sweats. No weight change. No weakness, fatigue or lethargy. No daytime sleepiness. EENT: No headache. No blurred vision or double vision, no loss of vision. No loss of Hearing, no ringing in the ears, no dizziness. No nasal drainage or congestion. No epistaxis. No sore throat. Lungs: No shortness of breath, cough, no sputum production. No wheezing. Cardiovascular: No chest pain, no lower extremity edema. No palpitations. No paroxysmal nocturnal dyspnea. No orthopnea. No lightheadedness or dizziness. No syncopal episodes. Abdominal: no abdominal discomfort. No nausea, vomiting. no diarrhea. No constipation. No bloody or tarry stools. no loss of appetite. Genitourinary: No dysuria, increased frequency, urgency. No urinary retention. Musculoskeletal: No myalgias. No muscle weakness, no gait dysfunction, no frequent falls. No back pain. No neck pain. Integumentary: No wounds, no lesions. No rash or pruritus. No unusual bruising. No change in hair or nails. Neurologic: No aphasia. No facial droop. No change in mentation. No head injury. No headache. No paralysis. No paresthesia. Psychiatric: No depression. No anxiety. No mood swings. Endocrine: No abnormal blood sugars. No weight change. No excessive sweating or thirst. Objective - Vital Signs Vital signs: Vital Signs Temp 97.7 F 03/29/19 11:28 Pulse 77 03/29/19 11:28 Resp 16 03/29/19 11:28 BP 132/66 03/29/19 11:28 Pulse Ox 97 03/29/19 11:28 Intake & Output 03/28/19 03/29/19 03/29/19 19:59 06:59 18:59 Intake Total 600 Output Total Balance 600 Weight Intake: IV Invasive Line 3 Oral 600 Output: Urine Other: # Voids 1 - Exam Review Of Systems: Constitutional: No fever, no chills, no night sweats. No weight change. No weakness, fatigue or lethargy. No daytime sleepiness. EENT: No headache. No blurred vision or double vision, no loss of vision. No loss of Hearing, no ringing in the ears, no dizziness. No nasal drainage or congestion. No epistaxis. No sore throat. Lungs: No shortness of breath, cough, no sputum production. No wheezing. Cardiovascular: No chest pain, no lower extremity edema. No palpitations. No paroxysmal nocturnal dyspnea. No orthopnea. No lightheadedness or dizziness. No syncopal episodes. Abdominal: no abdominal discomfort. No nausea, vomiting. no diarrhea. No constipation. No bloody or tarry stools. no loss of appetite. Genitourinary: No dysuria, increased frequency, urgency. No urinary retention. Musculoskeletal: No myalgias. No muscle weakness, no gait dysfunction, no f requent falls. No back pain. No neck pain. Integumentary: No wounds, no lesions. No rash or pruritus. No unusual bruising. No change in hair or nails. Neurologic: No aphasia. No facial droop. No change in mentation. No head injury. No headache. No paralysis. No paresthesia. Psychiatric: No depression. No anxiety. No mood swings. Endocrine: No abnormal blood sugars. No weight change. No excessive sweating or thirst. - Labs CBC & Chem 7: 03/29/19 05:44 03/29/19 05:44 Labs: Abnormal Lab Results - Last 24 Hours (Table) 03/28/19 03/28/19 03/29/19 Range/Units 16:53 20:08 02:08 RBC (4.30-5.90) m/uL Hgb (13.0-17.5) gm/dL Hct (39.0-53.0) % Plt Count (150-450) k/uL BUN (9-20) mg/dL Creatinine (0.66-1.25) mg/dL Glucose (74-99) mg/dL POC Glucose (mg/dL) 117 H 141 H 160 H (75-99) mg/dL Crossmatch 03/29/19 03/29/19 03/29/19 Range/Units 05:44 05:44 05:44 RBC 3.90 L (4.30-5.90) m/uL Hgb 11.9 L (13.0-17.5) gm/dL Hct 33.9 L (39.0-53.0) % Plt Count 119 L (150-450) k/uL BUN 28 H (9-20) mg/dL Creatinine 1.69 H (0.66-1.25) mg/dL Glucose 123 H (74-99) mg/dL POC Glucose (mg/dL) (75-99) mg/dL Crossmatch See Detail 03/29/19 Range/Units 06:32 RBC (4.30-5.90) m/uL Hgb (13.0-17.5) gm/dL Hct (39.0-53.0) % Plt Count (150-450) k/uL BUN (9-20) mg/dL Creatinine (0.66-1.25) mg/dL Glucose (74-99) mg/dL POC Glucose (mg/dL) 117 H (75-99) mg/dL Crossmatch Assessment and Plan Plan: 1. Triple-vessel coronary artery disease status post heart catheterization. CABG scheduled for Saturday. Continue aspirin 81 mg daily, atorvastatin, Imdur 30 mg daily, Lopressor. 2. History of non-ST elevated myocardial infarction, coronary artery disease and multiple stents. 3. Diabetes mellitus type 2 with diabetic neuropathy. Patient is normally on Lantus 36 units in the morning and NovoLog 18 units 3 times daily along with scale. Continue Levemir 30 units in the morning and 45 units in the evening along with NovoLog 3 units before meals and NovoLog scale. We'll continue with Levemir 45 units in the evening. Discussed with nursing staff not to hold Levemir unless glucose is less than 90 4. Paroxysmal atrial fibrillation. Eliquis is on hold. Continue Lopressor 100 mg twice daily. 5. Hypertension. Continue Lopressor, losartan 50 mg daily. 6. Hyperlipidemia. Continue atorvastatin 40 mg daily 7. Chronic kidney disease. Monitor renal function and avoid nephrotoxic agents. 8. Obstructive sleep apnea with home CPAP. 9. COPD, stable without exacerbation. 10. History of ventricular tachycardia and cardiomyopathy status post AICD, stable 11. Gastroesophageal reflux disease. Continue Protonix 12. Rheumatoid arthritis, stable 13. Chronic gout. Continue allopurinol 100 mg twice daily. 14. Benign prostatic hypertrophy. Continue tamsulosin 0.4 mg daily. Monitor for retention. 15. History of left knee septic arthroplasty. Stable. Impression and plan of care have been directed as dictated by the signing physician. Jumana Valentine nurse practitioner acting as scribe for signing physician.
[2019-03-29 16:58] LABS: Glucose,Whole Blood 106 mg/dL (75-99)
[2019-03-29 20:55] LABS: Glucose,Whole Blood 161 mg/dL (75-99)
[2019-03-30] MEDS: SODIUM CHLORIDE 0.9% 1,000 ML IV SCH (03:51)
[2019-03-30 05:39] LABS: Glucose,Whole Blood 127 mg/dL (75-99)
[2019-03-30] MEDS ORDERED: ALBUMIN HUMAN 25% 50 ML in EMPTY BAG 1 BAG IVPB ONE (06:00)
[2019-03-30] MEDS ORDERED: NOREPINEPHRINE 4 MG in SODIUM CHLORIDE 0.9% 250 ML IV SCH (06:00)
[2019-03-30] MEDS ORDERED: HEPARIN SODIUM,PORCINE 5,000 UNIT in SODIUM CHLORIDE 0.9% 500 ML 500 ML IV ONE (06:00)
[2019-03-30] MEDS ORDERED: MANNITOL 25% 12.5 GM/50 ML VIAL IV ONE ×2 (06:00)
[2019-03-30] MEDS ORDERED: ATORVASTATIN 10 MG TAB PO ONE (06:00)
[2019-03-30] MEDS ORDERED: PROTAMINE SULFATE 10 MG/ML 25 ML VIAL IV ONE ×2 (06:00→07:40)
[2019-03-30] MEDS ORDERED: ASPIRIN 325 MG TAB PO ONE (06:00)
[2019-03-30] MEDS ORDERED: PROTAMINE SULFATE 250 MG in EMPTY BAG 1 BAG IV ONE (06:00)
[2019-03-30] MEDS ORDERED: ceFAZolin 2,000 MG in SODIUM CHLORIDE 0.9% 30 ML IVPB ONE (06:00)
[2019-03-30] MEDS ORDERED: HEPARIN SODIUM 1,000 UN/ML (10ML VL) IV ONE (06:00)
[2019-03-30] MEDS ORDERED: INSULIN REGULAR 100 UNIT in SODIUM CHLORIDE 0.9% 100 ML IV SCH (06:00)
[2019-03-30] MEDS ORDERED: NITROGLYCERIN-D5W PMX 25 MG/250 ML BTL IV ONE (06:00)
[2019-03-30] MEDS ORDERED: ceFAZolin 1,000 MG in SODIUM CHLORIDE 0.9% IRRIGATIO 1,000 ML IRRIGATION ONE (06:00)
[2019-03-30] MEDS ORDERED: DEXTROSE 5% IN WATER 1,000 ML with POTASSIUM CHLORIDE 110 MEQ, MAGNESIUM SULFATE 16 MEQ... IV SCH ×5 (06:00)
[2019-03-30] MEDS ORDERED: PROPOFOL 1,000 MG in EMPTY BAG 1 BAG IV PRN (06:00)
[2019-03-30] MEDS ORDERED: DEXTROSE 5% IN WATER 1,000 ML with POTASSIUM CHLORIDE 25 MEQ, SODIUM CHLORIDE 2.5MEQ/ML... IV SCH ×6 (06:00)
[2019-03-30] MEDS ORDERED: MAGNESIUM SULFATE SYG 4.06 MEQ/ML SYRINGE IV ONE (06:00)
[2019-03-30] MEDS ORDERED: PAPAVERINE 360 MG in SODIUM CHLORIDE 0.9% 90 ML IV ONE (06:00)
[2019-03-30] MEDS ORDERED: TRANEXAMIC ACID 2,000 MG in SODIUM CHLORIDE 0.9% 80 ML IV ONE (06:00)
[2019-03-30] MEDS ORDERED: CALCIUM CHLORIDE 100 MG/ML 10 ML SYRINGE IVP ONE (06:00)
[2019-03-30] MEDS ORDERED: ALBUMIN HUMAN 5% 500 ML in EMPTY BAG 1 BAG IVPB ONE ×6 (06:00)
[2019-03-30] MEDS ORDERED: ceFAZolin 2 GM in SODIUM CHLORIDE 0.9% 30 ML IVPB ONE (06:00)
[2019-03-30] MEDS ORDERED: PHENYLEPHRINE 40 MG in SODIUM CHLORIDE 0.9% 250 ML IV ONE (06:00)
[2019-03-30] MEDS ORDERED: CHLORHEXIDINE GLUCONATE 15 ML CUP MUCOUS MEM ONE (06:00)
[2019-03-30] MEDS ORDERED: SODIUM BICARB 8.4% 50 ML SYR (1 MEQ/ML) IV ONE (06:00)
[2019-03-30] MEDS ORDERED: METOPROLOL TARTRATE 12.5 MG TAB PO ONE (06:00)
[2019-03-30] MEDS ORDERED: IV FLUID CONTINUATION 1,000 ML IV ONE (06:14)
[2019-03-30 06:36] LABS: Glucose,Whole Blood 124 mg/dL (75-99)
[2019-03-30] MEDS ORDERED: MIDAZOLAM 2 MG/2 ML VIAL ONE (07:40)
[2019-03-30] MEDS ORDERED: PROPOFOL 10 MG/ML 20 ML VIAL IV ONE (07:40)
[2019-03-30] MEDS ORDERED: PHENYLEPHRINE-0.9% NACL SYG 1 MG/10 ML SYRINGE ONE (07:40)
[2019-03-30] MEDS ORDERED: fentaNYL (PF) 50 MCG/ML 50 ML VIAL ONE (07:40)
[2019-03-30] MEDS ORDERED: TRANEXAMIC ACID 1,000 MG/10 ML VIAL ONE (07:40)
[2019-03-30] MEDS ORDERED: SODIUM CHLORIDE 0.9% IRRIG 1,000 ML BTL IRRIGATION ONE (07:40)
[2019-03-30] MEDS ORDERED: SODIUM CHLORIDE 0.9% 250 ML BAG ONE (07:40)
[2019-03-30] MEDS ORDERED: WATER FOR INJECTION, STERILE 10 ML VIAL IV ONE (07:40)
[2019-03-30] MEDS ORDERED: NITROGLYCERIN-D5W PMX 50 MG/250 ML BOTTLE IV ONE (07:40)
[2019-03-30] MEDS ORDERED: CALCIUM CHLORIDE 100 MG/ML 10 ML SYRINGE ONE (07:40)
[2019-03-30] MEDS ORDERED: VECURONIUM 10 MG VIAL IV ONE (07:40)
[2019-03-30] MEDS ORDERED: ALBUMIN HUMAN 5% (25gm) 500 ML VIAL IVPB ONE (07:40)
[2019-03-30] MEDS ORDERED: ELECTROLYTE-R (PH 7.4) 1,000 ML IV.SOLN IV ONE (07:40)
[2019-03-30] MEDS ORDERED: HEPARIN SODIUM,PORCINE 10,000 UNIT/ML 1 ML VIAL ONE (07:40)
[2019-03-30] MEDS ORDERED: LIDOCAINE 2% SYG (PF) 100 MG/5 ML ONE (07:40)
[2019-03-30] MEDS ORDERED: MAGNESIUM SULFATE 4 MEQ/ML 10ML VIAL ONE (07:40)
[2019-03-30] MEDS ORDERED: ATROPINE SULFATE 0.1 MG/ML 10ML SYRINGE ONE (07:40)
[2019-03-30] MEDS ORDERED: fentaNYL (PF) 50 MCG/ML 2 ML AMP ONE (07:40)
[2019-03-30] MEDS ORDERED: DILTIAZEM 125 MG in SODIUM CHLORIDE 0.9% 100 ML IV STA (08:17)
[2019-03-30 08:50] LABS: ABG Base Excess -0.8 mmol/L; ABG Glucose Whole Blood 120 mg/dL (75-99); ABG HCO3 25 mmol/L (21-25); ABG Hematocrit 35 % (34.0-46.0); ABG Lactic Acid Whole Blood 1.7 mmol/L (0.5-1.6); ABG Oxygen Saturation 99.9 % (94-97); ABG PCO2 42 mmHg (35-45); ABG PH 7.37 (7.35-7.45); ABG PO2 363 mmHg (83-108); ABG Potassium Whole Blood 4.6 mmol/L (3.4-4.5); ABG Sodium Whole Blood 140 mmol/L (135-146); ABG TCO2 26 mmol/L (19-24)
[2019-03-30 11:49] LABS: ABG Base Excess -2.8 mmol/L; ABG Glucose Whole Blood 118 mg/dL (75-99); ABG HCO3 22 mmol/L (21-25); ABG Hematocrit 26 % (34.0-46.0); ABG Ionized Calcium 4.3 mg/dL (4.5-5.3); ABG Lactic Acid Whole Blood 1.4 mmol/L (0.5-1.6); ABG PCO2 38 mmHg (35-45); ABG PH 7.38 (7.35-7.45); ABG Potassium Whole Blood 4.5 mmol/L (3.4-4.5); ABG Sodium Whole Blood 136 mmol/L (135-146); ABG TCO2 23 mmol/L (19-24)
[2019-03-30 12:31] LABS: ABG Base Excess -1.7 mmol/L; ABG Glucose Whole Blood 202 mg/dL (75-99); ABG HCO3 24 mmol/L (21-25); ABG Ionized Calcium 4.4 mg/dL (4.5-5.3); ABG Lactic Acid Whole Blood 1.2 mmol/L (0.5-1.6); ABG PCO2 41 mmHg (35-45); ABG PH 7.37 (7.35-7.45); ABG PO2 352 mmHg (83-108); ABG Potassium Whole Blood 5.7 mmol/L (3.4-4.5); ABG Sodium Whole Blood 135 mmol/L (135-146); ABG TCO2 25 mmol/L (19-24)
[2019-03-30 12:56] LABS: ABG Base Excess -1.9 mmol/L; ABG Glucose Whole Blood 191 mg/dL (75-99); ABG HCO3 24 mmol/L (21-25); ABG Hematocrit 25 % (34.0-46.0); ABG Ionized Calcium 4.5 mg/dL (4.5-5.3); ABG Lactic Acid Whole Blood 1.3 mmol/L (0.5-1.6); ABG Oxygen Saturation 99.1 % (94-97); ABG PCO2 43 mmHg (35-45); ABG PH 7.35 (7.35-7.45); ABG PO2 126 mmHg (83-108); ABG Potassium Whole Blood 5.5 mmol/L (3.4-4.5); ABG Sodium Whole Blood 136 mmol/L (135-146); ABG TCO2 25 mmol/L (19-24)
[2019-03-30 13:35] LABS: ABG Base Excess -2.2 mmol/L; ABG Glucose Whole Blood 197 mg/dL (75-99); ABG HCO3 24 mmol/L (21-25); ABG Hematocrit 25 % (34.0-46.0); ABG Ionized Calcium 4.5 mg/dL (4.5-5.3); ABG Lactic Acid Whole Blood 1.4 mmol/L (0.5-1.6); ABG Oxygen Saturation 99.9 % (94-97); ABG PCO2 45 mmHg (35-45); ABG PH 7.33 (7.35-7.45); ABG PO2 329 mmHg (83-108); ABG Potassium Whole Blood 5.4 mmol/L (3.4-4.5); ABG Sodium Whole Blood 136 mmol/L (135-146); ABG TCO2 25 mmol/L (19-24)
[2019-03-30 14:20] LABS: ABG Base Excess -2.7 mmol/L; ABG Glucose Whole Blood 196 mg/dL (75-99); ABG HCO3 23 mmol/L (21-25); ABG Ionized Calcium 4.4 mg/dL (4.5-5.3); ABG Oxygen Saturation 99.3 % (94-97); ABG PCO2 43 mmHg (35-45); ABG PH 7.33 (7.35-7.45); ABG PO2 147 mmHg (83-108); ABG Potassium Whole Blood 5.5 mmol/L (3.4-4.5); ABG Sodium Whole Blood 136 mmol/L (135-146); ABG TCO2 24 mmol/L (19-24)
[2019-03-30 14:22] LABS: ABG PO2 >420 mmHg (83-108)
[2019-03-30 14:22] LABS: ABG Hematocrit 24 % (34.0-46.0)
[2019-03-30 14:43] LABS: ABG Hematocrit 23 % (34.0-46.0); ABG Lactic Acid Whole Blood 2.1 mmol/L (0.5-1.6)
[2019-03-30 15:04] LABS: ABG Base Excess -2.4 mmol/L; ABG Glucose Whole Blood 170 mg/dL (75-99); ABG HCO3 20 mmol/L (21-25); ABG Ionized Calcium 4.1 mg/dL (4.5-5.3); ABG PCO2 24 mmHg (35-45); ABG PH 7.52 (7.35-7.45); ABG Potassium Whole Blood 5.4 mmol/L (3.4-4.5); ABG Sodium Whole Blood 135 mmol/L (135-146); ABG TCO2 21 mmol/L (19-24)
[2019-03-30 16:07] LABS: ABG Hematocrit 22 % (34.0-46.0); ABG Lactic Acid Whole Blood 2.2 mmol/L (0.5-1.6); ABG PO2 >420 mmHg (83-108)
[2019-03-30] MEDS ORDERED: ONDANSETRON 4 MG/2 ML VIAL IVP PRN (16:10)
[2019-03-30] MEDS ORDERED: IPRATROPIUM-ALBUTEROL 3 ML NEB INHALATION PRN (16:10)
[2019-03-30] MEDS ORDERED: AMIODARONE 360 MG in DEXTROSE 5% IN WATER 200 ML IV PRN ×2 (16:10)
[2019-03-30] MEDS ORDERED: CALCIUM GLUCONATE 2 GM in SODIUM CHLORIDE 0.9% 100 ML IVPB PRN (16:10)
[2019-03-30] MEDS ORDERED: Phosphorus Replacement Protoco 1 EACH MISC MISCELLANE PRN (16:10)
[2019-03-30] MEDS ORDERED: Magnesium Replacement Protocol 1 EACH MISC MISCELLANE PRN (16:10)
[2019-03-30] MEDS ORDERED: AMIODARONE 300 MG in DEXTROSE 5% IN WATER 250 ML IV PRN ×2 (16:10)
[2019-03-30] MEDS ORDERED: Potassium Replacement Protocol 1 EACH MISC MISCELLANE PRN (16:10)
[2019-03-30] MEDS: NITROGLYCERIN-D5W PMX 50 MG in DEXTROSE/WATER 1 250ML.BAG IV SCH ×2 (16:40→17:15)
[2019-03-30 16:50] LABS: Glucose,Whole Blood 170 mg/dL (75-99)
[2019-03-30] MEDS: NOREPINEPHRINE 4 MG in SODIUM CHLORIDE 0.9% 250 ML IV SCH (17:00)
[2019-03-30] MEDS: INSULIN REGULAR 100 UNIT in SODIUM CHLORIDE 0.9% 100 ML IV SCH (17:13)
[2019-03-30] MEDS: CLEVIDIPINE BUTYRATE 25 MG in EMPTY BAG 1 BAG IV SCH (17:14)
[2019-03-30] MEDS: LACTATED RINGERS 1,000 ML IV SCH (17:16)
[2019-03-30 17:22] LABS: ABG Base Excess -4.7 mmol/L; ABG HCO3 21 mmol/L (21-25); ABG PCO2 41 mmHg (35-45); ABG PH 7.32 (7.35-7.45); ABG PO2 >400 mmHg (83-108); ABG TCO2 23 mmol/L (19-24); Allen Test Performed? Yes
[2019-03-30 17:22] LABS: Ionized Calcium 4.8 mg/dL (4.5-5.3)
--- NOTE | 2019-03-30 17:28 | XR ---
EXAMINATION TYPE: XR chest 1V portable DATE OF EXAM: 03/30/2019 COMPARISON: 03/24/2019 HISTORY: Postop TECHNIQUE: Single frontal view of the chest is obtained. FINDINGS: ET tube is seen with the tip approximately 4 cm above the ellen. There is bilateral conso lidation and pleural effusion. Cardiac device postsurgical changes noted. NG tube is seen. Tip of the NG tube not well identified. Right-sided central venous catheter is noted which may represent a [place] -Diana catheter tip near the proximal pulmonary outflow tract. Left-sided chest tube noted. No sizable pneumothorax. Diffuse interstitial pattern. Postsurgical change left shoulder. IMPRESSION: 1. Bilateral infiltrate and pleural effusion correlate for CHF. 2. Postsurgical changes.
[2019-03-30 17:30] LABS: Albumin 2.6 g/dL (3.5-5.0); Magnesium 2.5 mg/dL (1.6-2.3); Potassium 5.3 mmol/L (3.5-5.1); Total Protein 4.4 g/dL (6.3-8.2)
[2019-03-30] MEDS: IPRATROPIUM-ALBUTEROL 3 ML NEB INHALATION SCH ×3 (17:30→20:29)
[2019-03-30 17:32] LABS: INR 1.2 (<1.2); Partial Thromboplastin Time 26.4 sec (22.0-30.0); Prothrombin Time 12.4 sec (9.0-12.0)
[2019-03-30 17:35] LABS: Basophils # (A) 0.1 k/uL (0-0.2); Basophils % (A) 1 %; Eosinophils # (A) 0.1 k/uL (0-0.7); Eosinophils % (A) 1 %; HCT 27.2 % (39.0-53.0); Lymphocytes # (A) 0.8 k/uL (1.0-4.8); Lymphocytes % (A) 11 %; MCH 30.4 pg (25.0-35.0); MCHC 34.5 g/dL (31.0-37.0); MCV 88.2 fL (80.0-100.0); Mean Platelet Volume 6.6; Monocytes # (A) 0.6 k/uL (0-1.0); Monocytes % (A) 8 %; Neutrophils # (A) 5.9 k/uL (1.3-7.7); Neutrophils % (A) 79 %; Poikilocytosis Slight; RBC 3.09 m/uL (4.30-5.90); RDW 15.6 % (11.5-15.5); WBC 7.5 k/uL (3.8-10.6)
[2019-03-30 17:36] LABS: HGB 9.4 gm/dL (13.0-17.5); Platelet Count 90 k/uL (150-450)
--- NOTE | 2019-03-30 17:36 | P.PN ---
Subjective Progress Note Date: 03/30/19 Principal diagnosis: Coronary artery disease. The patient is seen today in the intensive care unit in the immediate postoperative period. He received a RAMIREZ to the LAD, saphenous vein grafts to the diagonal, LVB and PDA. Left radial artery to the OM1. Postoperative day #0. Currently sedated intubated and on the mechanical ventilator. Initial settings of assist control of 12, tidal volume 450, FiO2 100% and a PEEP of 5. Chest x-ray shows no acute pulmonary process. He has 2 mediastinal chest tubes and one left chest tube in place. MANDY drains to the left radial and MANDY drain to the left lower extremity. He is currently on norepinephrine at 6 mcg/m. Cardiac output 5.0. Cardiac index 2.7. Right IJ [place]-Diana catheter in place. Objective - Vital Signs Vital signs: Vital Signs Temp 97.6 F 03/30/19 06:19 Pulse 80 03/30/19 06:19 Resp 16 03/30/19 06:19 BP 171/87 03/30/19 06:19 Pulse Ox 99 03/30/19 06:19 Intake & Output 03/29/19 03/30/19 03/30/19 18:59 06:59 18:59 Intake Total 1100 34 Output Total 3100 Balance 1100 -3066 Weight 104.6 kg Intake: IV 34 Oral 1100 Output: Urine 1100 Estimated Blood Loss 2000 Other: # Voids 1 1 - Exam GENERAL EXAM: Sedated, sedated 73-year-old gentleman, comfortable in no apparent distress. HEAD: Normocephalic. EYES: Sluggish reaction of pupils, equal size. NOSE: Clear with pink turbinates. THROAT: Oral endotracheal and gastric tube secured in place. No erythema or exudates. NECK: Right IJ [place]-Diana catheter in place. No masses, no JVD. CHEST: Dressing dry and intact. 2 mediastinal and left chest tubes in place. LUNGS: Equal air entry with no crackles, wheeze, rhonchi or dullness. CVS: S1 and S2 normal with no audible murmur, regular rhythm. ABDOMEN: No hepatosplenomegaly, no guarding or rigidity. SPINE: No scoliosis or deformity SKIN: No rashes CENTRAL NERVOUS SYSTEM: No focal deficits, tone is normal in all 4 extremities. EXTREMITIES: Left radial MANDY drain in place. Horace wrap to the left upper extremity. Horace wrap to lower extremities. Left MANDY drain in place. There is no peripheral edema. No clubbing, no cyanosis. Peripheral pulses are intact. - Labs CBC & Chem 7: 03/29/19 05:44 03/29/19 05:44 Labs: Abnormal Lab Results - Last 24 Hours (Table) 03/29/19 03/29/19 03/30/19 Range/Units 05:44 20:53 05:38 ABG pH (7.35-7.45) ABG pCO2 (35-45) mmHg ABG pO2 (83-108) mmHg ABG HCO3 (21-25) mmol/L ABG Total CO2 (19-24) mmol/L ABG O2 Saturation (94-97) % ABG Hematocrit (34.0-46.0) % ABG Potassium (3.4-4.5) mmol/L ABG Ionized Calcium (4.5-5.3) mg/dL ABG Glucose (75-99) mg/dL ABG Lactic Acid (0.5-1.6) mmol/L Hemoglobin (13.0-17.5) gm/dL POC Glucose (mg/dL) 161 H 127 H (75-99) mg/dL Arterial Blood Potassium (3.4-4.5) mmol/L Arterial Blood Glucose (75-99) mg/dL Crossmatch See Detail 03/30/19 03/30/19 03/30/19 Range/Units 06:35 08:54 11:49 ABG pH (7.35-7.45) ABG pCO2 (35-45) mmHg ABG pO2 363 H >420 H (83-108) mmHg ABG HCO3 (21-25) mmol/L ABG Total CO2 26 H (19-24) mmol/L ABG O2 Saturation 99.9 H 100.0 H (94-97) % ABG Hematocrit 26 L (34.0-46.0) % ABG Potassium 4.6 H (3.4-4.5) mmol/L ABG Ionized Calcium 4.3 L (4.5-5.3) mg/dL ABG Glucose 120 H 118 H (75-99) mg/dL ABG Lactic Acid 1.7 H (0.5-1.6) mmol/L Hemoglobin 11.5 L 8.6 L (13.0-17.5) gm/dL POC Glucose (mg/dL) 124 H (75-99) mg/dL Arterial Blood Potassium 4.6 H (3.4-4.5) mmol/L Arterial Blood Glucose 120 H 118 H (75-99) mg/dL Crossmatch 03/30/19 03/30/19 03/30/19 Range/Units 12:31 12:56 13:34 ABG pH 7.33 L (7.35-7.45) ABG pCO2 (35-45) mmHg ABG pO2 352 H 126 H 329 H (83-108) mmHg ABG HCO3 (21-25) mmol/L ABG Total CO2 25 H 25 H 25 H (19-24) mmol/L ABG O2 Saturation 100.0 H 99.1 H 99.9 H (94-97) % ABG Hematocrit 24 L 25 L 25 L (34.0-46.0) % ABG Potassium 5.7 H 5.5 H 5.4 H (3.4-4.5) mmol/L ABG Ionized Calcium 4.4 L (4.5-5.3) mg/dL ABG Glucose 202 H 191 H 197 H (75-99) mg/dL ABG Lactic Acid (0.5-1.6) mmol/L Hemoglobin 7.9 L 8.1 L 8.2 L (13.0-17.5) gm/dL POC Glucose (mg/dL) (75-99) mg/dL Arterial Blood Potassium 5.7 H 5.5 H 5.4 H (3.4-4.5) mmol/L Arterial Blood Glucose 202 H 191 H 197 H (75-99) mg/dL Crossmatch 03/30/19 03/30/19 03/30/19 Range/Units 14:20 15:04 16:47 ABG pH 7.33 L 7.52 H (7.35-7.45) ABG pCO2 24 L (35-45) mmHg ABG pO2 147 H >420 H (83-108) mmHg ABG HCO3 20 L (21-25) mmol/L ABG Total CO2 (19-24) mmol/L ABG O2 Saturation 99.3 H 100.0 H (94-97) % ABG Hematocrit 23 L 22 L (34.0-46.0) % ABG Potassium 5.5 H 5.4 H (3.4-4.5) mmol/L ABG Ionized Calcium 4.4 L 4.1 L (4.5-5.3) mg/dL ABG Glucose 196 H 170 H (75-99) mg/dL ABG Lactic Acid 2.1 H 2.2 H* (0.5-1.6) mmol/L Hemoglobin 7.6 L 7.2 L (13.0-17.5) gm/dL POC Glucose (mg/dL) 170 H (75-99) mg/dL Arterial Blood Potassium 5.5 H 5.4 H (3.4-4.5) mmol/L Arterial Blood Glucose 196 H 170 H (75-99) mg/dL Crossmatch Assessment and Plan Assessment: Impression: #1 Coronary artery disease with significant disease involving the proximal LAD and left main. Status post coronary artery bypass grafting utilizing a RAMIREZ to the LAD, saphenous vein grafts to the diag, LVB, PDA. Left radial arterial graft to the OM1 postoperative day #0. Presently intubated on mechanical ventilator. #2 Previous history of coronary artery disease with stent placement #3 Ischemic cardiomyopathy and ventricular tachycardia status post AICD placement. #4 History of atrial fibrillation. #5 Chronic bronchitis, currently inactive and stable. FEV1 value 63% of predicted. #6 Hyperlipidemia. #7 Hypertension. #8 History of pulmonary embolism. #9 Obstructive sleep apnea utilizing CPAP. 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 #11 Diabetes mellitus. #12 Peripheral neuropathy. #13 History of gout. Plan: The patient was seen and evaluated by Dr. Alvarado. Chest x-ray, ABGs and labs reviewed. Mechanical ventilator settings adjusted accordingly. We will attempt to extubate within the 6 hour period. Titrate down the norepinephrine as tolerated. Currently on insulin drip at 3 units per hour. Lactated Ringer's at 50 MLS per hour. We will continue to follow and make further recommendations based on his clinical status. I, the cosigning physician, performed a history & physical examination of the patient. Lungs sounds are clear. Mediastinal and left chest tubes in place. Maintaining good O2 saturations in the 90s on mechanical ventilator. Current;y at 100% FiO2.. I discussed the assessment and plan of care with my nurse practitioner, Ashlie Rodas. I attest to the above note as dictated by her. Time with Patient: Greater than 30
[2019-03-30 17:43] LABS: Glucose,Whole Blood 137 mg/dL (75-99)
[2019-03-30] MEDS: ACETAMINOPHEN IV (For NPO) 1,000 MG in EMPTY BAG 1 BAG IVPB SCH (17:49)
[2019-03-30] MEDS: TAMSULOSIN 0.4 MG CAP.ER.24H PO SCH (17:49)
[2019-03-30] MEDS: ALBUMIN HUMAN 5% 250 ML in EMPTY BAG 1 BAG IVPB PRN ×3 (17:53→19:08)
[2019-03-30 18:15] LABS: Glucose,Whole Blood 147 mg/dL (75-99)
[2019-03-30 19:05] LABS: Glucose,Whole Blood 137 mg/dL (75-99)
[2019-03-30 19:56] LABS: Glucose,Whole Blood 141 mg/dL (75-99)
[2019-03-30 20:08] LABS: Basophils % (A) 0 %; Eosinophils % (A) 0 %; HCT 21.8 % (39.0-53.0); Lymphocytes # (A) 0.4 k/uL (1.0-4.8); Lymphocytes % (A) 9 %; MCH 30.6 pg (25.0-35.0); MCHC 35.1 g/dL (31.0-37.0); Mean Platelet Volume 6.6; Monocytes # (A) 0.3 k/uL (0-1.0); Monocytes % (A) 7 %; Neutrophils # (A) 3.6 k/uL (1.3-7.7); Neutrophils % (A) 82 %; Poikilocytosis Slight; RBC 2.51 m/uL (4.30-5.90); RDW 15.8 % (11.5-15.5); WBC 4.4 k/uL (3.8-10.6)
[2019-03-30 20:10] LABS: HGB 7.7 gm/dL (13.0-17.5); Platelet Count 68 k/uL (150-450)
[2019-03-30] MEDS ORDERED: ASPIRIN 325 MG TAB PO STA (20:15)
[2019-03-30] MEDS ORDERED: CLOPIDOGREL 75 MG TAB PO STA (20:16)
[2019-03-30] MEDS ORDERED: METOPROLOL TARTRATE 12.5 MG TAB PO STA (20:16)
[2019-03-30 21:21] LABS: Glucose,Whole Blood 144 mg/dL (75-99)
[2019-03-30 21:36] LABS: ABG Base Excess -6.6 mmol/L; ABG HCO3 20 mmol/L (21-25); ABG Oxygen Saturation 99.6 % (94-97); ABG PCO2 41 mmHg (35-45); ABG PO2 194 mmHg (83-108); ABG TCO2 21 mmol/L (19-24); Allen Test Performed? Yes
[2019-03-30] MEDS ORDERED: SODIUM BICARB 8.4% 50 ML SYR (1 MEQ/ML) IV STA (22:00)
[2019-03-30 22:22] LABS: Basophils % (A) 0 %; Eosinophils % (A) 0 %; HCT 23.8 % (39.0-53.0); HGB 8.3 gm/dL (13.0-17.5); Lymphocytes # (A) 0.5 k/uL (1.0-4.8); Lymphocytes % (A) 7 %; MCH 30.7 pg (25.0-35.0); MCHC 34.9 g/dL (31.0-37.0); MCV 88.1 fL (80.0-100.0); Mean Platelet Volume 7.1; Monocytes # (A) 0.4 k/uL (0-1.0); Monocytes % (A) 6 %; Neutrophils # (A) 5.5 k/uL (1.3-7.7); Neutrophils % (A) 86 %; Poikilocytosis Slight; RDW 15.8 % (11.5-15.5); WBC 6.5 k/uL (3.8-10.6)
[2019-03-30 22:28] LABS: Glucose,Whole Blood 178 mg/dL (75-99)
[2019-03-30 22:31] LABS: Platelet Count 80 k/uL (150-450)
[2019-03-30] MEDS: MUPIROCIN 2% OINT 22 GM TUBE NASAL SCH (22:31)
[2019-03-30] MEDS: HEPARIN SODIUM,PORCINE 5,000 UNIT/ML 1 ML VIAL SQ SCH (23:04)
[2019-03-30 23:41] LABS: Glucose,Whole Blood 176 mg/dL (75-99)
[2019-03-31] MEDS: ACETAMINOPHEN IV (For NPO) 1,000 MG in EMPTY BAG 1 BAG IVPB SCH (00:45)
[2019-03-31 00:46] LABS: Glucose,Whole Blood 162 mg/dL (75-99)
[2019-03-31 01:37] LABS: Glucose,Whole Blood 155 mg/dL (75-99)
[2019-03-31] MEDS: NOREPINEPHRINE 4 MG in SODIUM CHLORIDE 0.9% 250 ML IV SCH (02:29)
[2019-03-31] MEDS: CLEVIDIPINE BUTYRATE 25 MG in EMPTY BAG 1 BAG IV SCH (02:29)
[2019-03-31 03:15] LABS: Glucose,Whole Blood 163 mg/dL (75-99)
[2019-03-31 04:08] LABS: Glucose,Whole Blood 156 mg/dL (75-99)
[2019-03-31 04:25] LABS: Basophils % (A) 0 %; Eosinophils % (A) 0 %; HCT 23.4 % (39.0-53.0); HGB 7.7 gm/dL (13.0-17.5); Lymphocytes # (A) 0.4 k/uL (1.0-4.8); Lymphocytes % (A) 5 %; MCV 87.8 fL (80.0-100.0); Mean Platelet Volume 7.8; Monocytes # (A) 0.5 k/uL (0-1.0); Monocytes % (A) 6 %; Neutrophils % (A) 87 %; Poikilocytosis Slight; RBC 2.67 m/uL (4.30-5.90); RDW 15.8 % (11.5-15.5)
[2019-03-31 04:27] LABS: Platelet Count 76 k/uL (150-450)
[2019-03-31 04:30] LABS: Ionized Calcium 4.6 mg/dL (4.5-5.3)
[2019-03-31 04:41] LABS: Albumin 3.1 g/dL (3.5-5.0); Calcium 8.4 mg/dL (8.4-10.2); Magnesium 2.4 mg/dL (1.6-2.3); Potassium 4.9 mmol/L (3.5-5.1); Total Bilirubin 0.6 mg/dL (0.2-1.3); Total Protein 4.9 g/dL (6.3-8.2)
[2019-03-31] MEDS: HYDROcodone/APAP 5-325MG 1 EACH TAB PO PRN ×5 (04:46→23:55)
[2019-03-31 05:29] LABS: Glucose,Whole Blood 131 mg/dL (75-99)
[2019-03-31] MEDS: ALBUMIN HUMAN 5% 250 ML in EMPTY BAG 1 BAG IVPB PRN ×3 (05:50→18:58)
[2019-03-31 06:24] LABS: Glucose,Whole Blood 143 mg/dL (75-99)
[2019-03-31] MEDS: IPRATROPIUM-ALBUTEROL 3 ML NEB INHALATION SCH ×4 (07:15→21:30)
[2019-03-31 07:27] LABS: Glucose,Whole Blood 140 mg/dL (75-99)
[2019-03-31] MEDS ORDERED: PANTOPRAZOLE 40 MG TABLET PO SCH (07:30)
--- NOTE | 2019-03-31 07:43 | XR ---
EXAMINATION TYPE: XR chest 1V portable DATE OF EXAM: 03/31/2019 CLINICAL HISTORY: Difficulty breathing progress study. Post open cardiac surgery. TECHNIQUE: Single AP portable upright view of the chest is obtained. COMPARISON: Chest x-ray from one day earlier FINDINGS: Interval extubation with removal of endotracheal and orogastric tubes. Stable right internist al jugular [place]-Diana catheter along with mediastinal drainage catheter and left basilar chest tube. P ost CABG changes with mediastinal clips and sternal wires redemonstrated. Persistent cardiomegaly wit h tiny bilateral pleural effusions and bibasilar atelectasis and/or infiltrate. No measurable pneumot horax bilaterally. Osseous structures are intact. IMPRESSION: Interval extubation. Other findings stable as there is cardiomegaly with tiny bilateral p leural effusions and patchy bibasilar atelectasis and/or infiltrate
--- NOTE | 2019-03-31 07:54 | OP ---
OPERATIVE REPORT DATE OF THE SURGERY: 03/30/2019. SURGEON: Dr. Daphne Hurst. INVENTORY COORDINATOR: 1. Kash Carrasco. 2. Joaquín Pacheco. PREOPERATIVE DIAGNOSES: Triple-vessel coronary artery disease, status post prior stenting to his RCA and left anterior descending artery with prior myocardial infarction, mild to moderate left ventricular dysfunction, status post automated implantable cardioverter- defibrillator insertion, paroxysmal atrial fibrillation, obesity, hypertension, hyperlipidemia, psoriasis. POSTOPERATIVE DIAGNOSES: Triple-vessel coronary artery disease, status post prior stenting to his RCA and left anterior descending artery with prior myocardial infarction, mild to moderate left ventricular dysfunction, status post automated implantable cardioverter- defibrillator insertion, paroxysmal atrial fibrillation, obesity, hypertension, hyperlipidemia, psoriasis. PROCEDURE: 1. Quintuple coronary artery bypass grafting using the left internal mammary artery to the left anterior descending artery, left radial artery from the aorta to the first obtuse marginal artery, reverse saphenous vein graft from the aorta to the diagonal artery, reverse saphenous vein graft from the aorta to the posterior descending artery, reverse saphenous vein graft from the aorta to the posterolateral branch of the right coronary artery. 2. Bilateral pulmonary vein isolation using the bipolar radiofrequency energy by [employer]. 3. Exclusion of the left atrial appendage using a 35 mm AtriClip. 4. Intraoperative graft flow measurements using the [employer] system. 5. Intraoperative transesophageal echocardiogram and epiaortic scanning. INDICATION FOR SURGERY: Patient is a 73-year-old gentleman with the above comorbidities was complaining of worsening dyspnea on exertion. He had prior history of stents to his LAD and RCA as well as AICD. He has history also of paroxysmal atrial fibrillation. Cardiac catheterization followed also by IVUS of the left main showed significant triple-vessel coronary artery disease. The patient is brought in today for coronary artery bypass grafting and a modified Maze procedure. The STS risk was discussed with him. He understood it and agreed to proceed. DESCRIPTION OF THE PROCEDURE: Patient in supine position. A right internal jugular [place] [address] catheter and right brachial arterial line were initially inserted. His cardiac index was 3.1 and PA pressure was 41/21. Subsequently he was brought to the operating room where general endotracheal anesthesia was induced uneventfully. He received 3 grams of cefazolin intravenously. A Uribe catheter was inserted. The chest, abdomen, both lower extremities and the left upper extremity were prepped and draped using ChloraPrep. Ioban was used to cover the skin. Transesophageal echocardiogram confirmed the preoperative finding of an ejection fraction of around 40% to 45% with no evidence of clot in the left atrial appendage and evidence of mild mitral valve regurgitation. Midline sternotomy was performed and the bone was moderately dense. The left hemisternum was elevated. The left internal mammary artery was harvested in a somewhat skeletonized fashion. The left pleura was intentionally opened in this process and was drained with a 19-Bahraini Joseph drain. The right pleura remained grossly intact. In the same setting, the left radial artery was harvested endoscopically. It was initially exposed at the wrist and clamping trial revealed preserved O2 signal pulsatile at the level of the left index O2 saturation probe. The forearm incision was closed over a drain. The radial artery was prepared by incising the fascia all along its volar aspect and clipping all the branches. It was around 3 mm in diameter of excellent quality. Also in the same setting, initially the left greater saphenous vein from groin to above the ankle level then subsequently, the right greater saphenous vein from groin to below- knee level were harvested after administration of 2500 units of heparin. Both leg incisions were closed over a drain. The veins were prepared and appeared to be of fair quality around 3 to 4 mm in diameter. Mediastinal fat was transected between 2 ties and epiaortic scanning revealed no protruding atheroma in the ascending aorta. Pericardium was opened in an inverted T- fashion. Pericardial cradle was created. Finding included a mildly elongated aorta and a normal size heart. After systemic heparinization after placement of respective pledgeted pursestring, arterial cannulation at the level of the proximal arch with a 21-Bahraini soft flow cannula, as well as venous cannulation with the right atrial appendage approach with a dual stage cannula was performed. Antegrade as well as retrograde cardioplegia catheters were placed. Cardiopulmonary bypass was initiated and with the heart empty and beating, we proceeded initially at isolating the right pulmonary vein and they were encircled and then 3 ablation with the bipolar radiofrequency at the level of the antrum of the vein was performed. It was hard to see the left side and we decided to do it with the heart arrested. Subsequently, the aorta was clamped and during aortic clamping myocardial protection was achieved with initial dose of around 800 mL of antegrade cold blood cardioplegia with adequate arrest at 200 mL followed by 400 mL of retrograde cold blood cardioplegia. All subsequent doses were given retrograde at 15 minutes interval. At this point, we incised the ligament of Rico with the Bovie, and completed encircling the left pulmonary vein and 3 ablation lines using the radiofrequency bipolar clamp were performed at the level of the antrum of the left-sided pulmonary veins. Subsequently, the left atrial appendage was excluded with a 35 mm AtriClip. Attention was moved at this point at performing the distal anastomosis. The first distal anastomosis was between the radial artery and the first obtuse marginal artery which was opened was around 1.7 mm in diameter using Prolene 7-0 in continuous fashion. The second distal anastomosis was between a segment of vein and a 1.7 mm diagonal artery using Prolene 7-0 in continuous fashion. The third distal anastomosis was between a segment of vein and the posterolateral branch of the right coronary artery, which was diffusely diseased, was around 1.5 mm in diameter using Prolene 7-0 in continuous fashion. The posterior descending artery was deep in the epicardium and there was no way to sequential that particular vein graft to it, so the fourth distal anastomosis was with another segment of reverse saphenous vein graft and the posterior descending artery which was around 1.5 mm in diameter using Prolene 7-0 in continuous fashion. The fifth and last distal anastomosis was between the left internal mammary and the mid to distal aspect of the left anterior descending artery after it emerged from an intramyocardial course. It was around 1.75 mm in diameter, at that level thin- walled and we used a Prolene 7-0 in continuous fashion. All heels and toes were probed before completion. Rewarming was started as at this point we punched a 4 button off the ascending aorta and performed the 3 proximal anastomosis of the vein grafts and the proximal anastomosis of the radial artery using Prolene in continuous fashion. The patient was given lidocaine and magnesium. De-airing maneuvers were done. He was put in Trendelenburg position and the aorta was unclamped with the aortic vent on maximum. Patient regained slow junctional rhythm. For that reason, two monopolar atrial pacing wires were affixed to the respective pursing of the right atrium and one bipolar ventricular pacing wire was driven via the inferior aspect of the right ventricle. After around 20 minutes of re-perfusion, we initiated AV pacing and we were able to wean off cardioplegia bypass without the need of any inotropic support, but requiring a little bit of Juan-Synephrine boluses. The ROSANNE showed slightly improved left ventricle function and no significant valvular abnormality. We proceeded at a graft flow measurement before giving protamine and we had a flow of 37 mL/minute with a pulsatility index of 3.1, diastolic filling of 48% and the left anterior descending artery showing an excellent functioning mammary graft. The flow into the vein graft to the diagonal artery was 36 mL/minute, pulsatility index of 2.9, diastolic filling of 58% showing an excellent graft. The flow into the right radial artery going to the first obtuse marginal artery was 104 mL/minute, pulsatility index of 1.8, diastolic filling of 62% showing an excellent graft. The flow into the vein graft going to the posterior descending artery was 33 mL per minute, pulsatility index of 3.6, diastolic filling of 61% showing an excellent functioning graft. The last graft to be measured was a vein graft to the left ventricular branch of the right coronary artery and the flow was 20 mL/minute, pulsatility index of 9.6 in view of competitive flow and diastolic filling of 45% showing a well-functioning graft with some competitive flow in it. With that test dose than full dose protamine was given. Decannulation followed. The antegrade cardioplegia site as well as the venous cannulation site were reinforced with running Prolene for the vein and pledgeted Prolene 4-0 for the antegrade site. Mediastinal fat was approximated over the heart. We had made a groove in the left pleuropericardial fat to accommodate the mammary artery medial to the lung and away from the posterior sternal table. After ensuring adequate hemostasis and hemodynamics and after correct sponge, instrument, and needle count, the sternum was closed using 5 [id number] [place] cable after interposing fibular between the sternal edges. Thorough irrigation with cefazolin followed. The rest of the closure proceeded in layers. Skin glue was applied. Patient did not receive any blood bank product but received 700 mL of Cell Saver blood. He was transferred to the ICU in stable condition. AV paced at 80 with a mean arterial pressure of 79, PA pressure 46/19 and cardiac index of 2.5. MMODL / IJN: [id number] / [facility]
[2019-03-31] MEDS: METOPROLOL TARTRATE 25 MG TAB PO SCH ×2 (07:58→21:22)
[2019-03-31] MEDS: ASPIRIN 325 MG TAB PO SCH (07:58)
[2019-03-31] MEDS: TAMSULOSIN 0.4 MG CAP.ER.24H PO SCH (07:58)
[2019-03-31] MEDS: HEPARIN SODIUM,PORCINE 5,000 UNIT/ML 1 ML VIAL SQ SCH ×3 (07:58→23:54)
[2019-03-31] MEDS: MUPIROCIN 2% OINT 22 GM TUBE NASAL SCH ×2 (07:59→21:22)
[2019-03-31] MEDS: CLOPIDOGREL 75 MG TAB PO SCH (07:59)
[2019-03-31] MEDS: AMIODARONE 200 MG TAB PO SCH ×2 (07:59→21:22)
[2019-03-31] MEDS: amLODIPine 2.5 MG TAB PO SCH (08:12)
[2019-03-31 08:22] LABS: Glucose,Whole Blood 268 mg/dL (75-99)
--- NOTE | 2019-03-31 08:53 | P.PN ---
Subjective Progress Note Date: 03/31/19 Principal diagnosis: Triple-vessel coronary artery disease with history of coronary artery disease and myocardial infarction with multiple stents to his right coronary artery and left anterior descending coronary artery, past medical history significant for ventricular fibrillation arrest after stenting in 2010 with placement of Medtronic AICD, mild to moderate left ventricular dysfunction, hypertension, hyperlipidemia, chronic kidney disease with a baseline creatinine of 1.7, diabetes mellitus type 2, paroxysmal atrial fibrillation on chronic Eliquis for anticoagulation, chronic obstructive pulmonary disease, morbid obesity, obstructive sleep apnea with home CPAP use and family history of heart disease. POD #1 quadruple coronary artery bypass grafting using the left internal mammary artery to the left anterior descending coronary artery, a left radial artery from the aorta to the first obtuse marginal coronary artery, a reverse greater saphenous vein graft from the aorta to the diagonal coronary artery, a reverse greater saphenous vein graft from the aorta to the posterior descending coronary artery, and a reverse greater saphenous vein graft from aorta to the posterior lateral branch of the right coronary artery. Bilateral pulmonary vein isolation using the bipolar radiofrequency energy by Atricure, exclusion of the left atrial appendage using a 35 mm Atriclip, intraoperative graft flow measurements using the Vital Connectstim system, intraoperative transesophageal echocardiogram and epi-aortic scanning. Postoperative acute blood loss anemia, an expected outcome due to hemodilution and cardiopulmonary bypass. Thrombocytopenia, an expected outcome due to his preoperative thrombocytopenia. The patient is sitting up to the bedside chair in the intensive care unit. He is in no acute distress and is hemodynamically stable, currently on no inotropic or pressor support. He is complaining of surgical type pain to his chest tube insertion sites rating his pain 6 out of 10 on the pain scale and denies any complaints of shortness of breath. He was successfully extubated last evening at 10:10 PM and is his room air oxygen saturation is 98%. The patient is demonstrating good use on his incentive spirometry and is achieving 1000 mL. Right IJ Cordis with [place] catheter in place, current cardiac output 6.1, cardiac index 2.8, PA pressures 25/14 and CVP 10 mmHg. Nitroglycerin drip remains infusing at 5 mcg/m for radial artery spasm prophylaxis. Chest x-ray was completed this morning which shows tiny bilateral pleural effusions and patchy bibasilar atelectasis. Mediastinal and left pleural chest tubes remain in place to low continuous wall suction -20 cm H2O. No air leak is present. Draining thin serosanguineous drainage. Mediastinal chest tubes with 110 mL output in the last 8 hours, 310 mL output since surgery. Left pleural chest tube with 210 mL output since surgery, 25 mL output in the last 8 hours. Objective - Vital Signs Vital signs: Vital Signs Temp 98.8 F 03/31/19 01:00 Pulse 86 03/31/19 07:17 Resp 18 03/31/19 07:00 BP 102/51 03/31/19 05:30 Pulse Ox 99 03/31/19 07:00 Intake & Output 03/30/19 03/31/19 03/31/19 18:59 06:59 18:59 Intake Total 904.200 2428.111 Output Total 3484 1071 Balance -2507.521 671.111 Intake: IV 955.5 1658.5 ACETAMINOPHEN IV (For NPO 100 100 ) 1,000 mg In Empty Bag 1 bag @ 400 mls/hr IVPB Q6HR [facility] Rx#:[id number] Albumin Human 25% 50 ml 500 500 In Empty Bag 1 bag @ 100 mls/hr IVPB ONCE ONE Rx#: [id number] Cardiac Output 90 240 Lactated Ringers 1,000 ml 150 650 @ 50 mls/hr IV .Q20H [facility] Rx#:[id number] Nitroglycerin-D5w Pmx 50 4.5 1.5 mg In Dextrose/Water 1 250ml.bag @ 5 MCG/MIN 1.5 mls/hr IV .Q24H [facility] Rx#: [id number] Pressure Bag 27 117 ceFAZolin 2 gm In Sodium 50 50 Chloride 0.9% 30 ml @ 60 mls/hr IVPB ONCE ONE Rx#: [id number] Intake, IV Titration 20.979 83.611 Amount Insulin Regular 100 unit 2.373 45.955 In Sodium Chloride 0.9% 100 ml @ Per Protocol IV .Q0M [facility] Rx#:[id number] Norepinephrine 4 mg In 14.945 Sodium Chloride 0.9% 250 ml @ 0.05 MCG/KG/MIN 19. 926 mls/hr IV .[id number] [facility] Rx#:[id number] Propofol 1,000 mg In 3.661 37.656 Empty Bag 1 bag @ Titrate IV .Q0M PRN Rx#: [id number] Output: Chest Tube Drainage 259 264 Left Lateral Chest 144 62 Mediastinal 115 202 Drainage 30 25 Left Calf 30 20 Left Wrist 0 5 Urine 1195 782 Estimated Blood Loss 1999 Other: Voiding Method Indwelling Catheter Indwelling Catheter ABP, PAP, CO, CI - Last Documented Arterial Blood Pressure 125/51 Pulmonary Artery Pressure 34/16 Cardiac Output 6.1 Cardiac Index 2.8 - Constitutional General appearance: Present: cooperative, morbidly obese, no acute distress - Respiratory Details: Lungs sounds essentially clear to his bilateral upper lobe, few scattered crackles to his bilateral bases left greater than right. Respirations are symmetrical and nonlabored. Oxygen saturation is 98% on room air. Achieving 1000 mL on his incentive spirometry. Mediastinal and left pleural chest tubes remain in place to low continuous wall suction -20 cm H2O. No air leak is present. Draining thin serosanguineous drainage. - Cardiovascular Details: Regular rhythm and rate. S1 and S2 present, negative for S3, gallop or murmur. Sternum is stable. Bedside telemetry showing normal sinus rhythm heart rate 97. Atrial and ventricular epicardial pacemaker wires in place and connected to back up to bedside pacemaker generator with a VVI 50. Right IJ Cordis and [place] Diana catheter in place. Right radial arterial line in place and functioning. Knee-high YANG hose and sequential compression devices in place to his bilateral lower extremities. Heart hugger is in place and he is demonstrating appropriate use. No edema present. - Gastrointestinal Gastrointestinal Comment(s): Abdomen is soft, nontender and nondistended. Active bowel sounds present in all 4 abdominal quadrants. No guarding or rigidity. No organomegaly. Passing flatus. Morbidly obese. - Genitourinary Genitourinary Comment(s): Uribe catheter for accurate I&O. Draining clear harvinder urine. - Integumentary Integumentary Comment(s): Skin is warm and dry. No clubbing or cyanosis is present. No rash or abnormal pigmentation is present. Midline sternal incision is clean, dry and approximated. No drainage or redness is present. Exofin dressing is clean, dry and in place. Left radial harvest sites are clean, dry and approximated. No drainage or redness is present. MANDY drain in place to his left forearm with 5 mL of thin serosanguineous drainage since surgery. Left and right lower extremity EVH sites clean, dry and approximated. No drainage or redness is present. Left lower extremity MANDY drain in place with 20 mL of thin serosanguineous drainage in the last 8 hours. - Neurologic Neurologic Comment(s): No focal neurological deficits. Neurologic: Present: CNII-XII intact - Musculoskeletal Musculoskeletal: Present: gait normal, generalized weakness, strength equal bilaterally - Psychiatric Psychiatric: Present: A&O x's 3, appropriate affect, intact judgment & insight - Allied health notes Allied health notes reviewed: nursing - Labs CBC & Chem 7: 03/31/19 04:05 03/31/19 04:05 Labs: Abnormal Lab Results - Last 24 Hours (Table) 03/29/19 03/30/19 03/30/19 Range/Units 05:44 08:54 11:49 RBC (4.30-5.90) m/uL Hgb (13.0-17.5) gm/dL Hct (39.0-53.0) % RDW (11.5-15.5) % Plt Count (150-450) k/uL Lymphocytes # (1.0-4.8) k/uL PT (9.0-12.0) sec INR (<1.2) ABG pH (7.35-7.45) ABG pCO2 (35-45) mmHg ABG pO2 363 H >420 H (83-108) mmHg ABG HCO3 (21-25) mmol/L ABG Total CO2 26 H (19-24) mmol/L ABG O2 Saturation 99.9 H 100.0 H (94-97) % ABG Hematocrit 26 L (34.0-46.0) % ABG Potassium 4.6 H (3.4-4.5) mmol/L ABG Ionized Calcium 4.3 L (4.5-5.3) mg/dL ABG Glucose 120 H 118 H (75-99) mg/dL ABG Lactic Acid 1.7 H (0.5-1.6) mmol/L Hemoglobin 11.5 L 8.6 L (13.0-17.5) gm/dL Potassium (3.5-5.1) mmol/L Chloride (98-107) mmol/L BUN (9-20) mg/dL Creatinine (0.66-1.25) mg/dL Glucose (74-99) mg/dL POC Glucose (mg/dL) (75-99) mg/dL Calcium (8.4-10.2) mg/dL Magnesium (1.6-2.3) mg/dL AST (17-59) U/L Alkaline Phosphatase (38-126) U/L Total Protein (6.3-8.2) g/dL Albumin (3.5-5.0) g/dL Arterial Blood Potassium 4.6 H (3.4-4.5) mmol/L Arterial Blood Glucose 120 H 118 H (75-99) mg/dL Crossmatch See Detail 03/30/19 03/30/19 03/30/19 Range/Units 12:31 12:56 13:34 RBC (4.30-5.90) m/uL Hgb (13.0-17.5) gm/dL Hct (39.0-53.0) % RDW (11.5-15.5) % Plt Count (150-450) k/uL Lymphocytes # (1.0-4.8) k/uL PT (9.0-12.0) sec INR (<1.2) ABG pH 7.33 L (7.35-7.45) ABG pCO2 (35-45) mmHg ABG pO2 352 H 126 H 329 H (83-108) mmHg ABG HCO3 (21-25) mmol/L ABG Total CO2 25 H 25 H 25 H (19-24) mmol/L ABG O2 Saturation 100.0 H 99.1 H 99.9 H (94-97) % ABG Hematocrit 24 L 25 L 25 L (34.0-46.0) % ABG Potassium 5.7 H 5.5 H 5.4 H (3.4-4.5) mmol/L ABG Ionized Calcium 4.4 L (4.5-5.3) mg/dL ABG Glucose 202 H 191 H 197 H (75-99) mg/dL ABG Lactic Acid (0.5-1.6) mmol/L Hemoglobin 7.9 L 8.1 L 8.2 L (13.0-17.5) gm/dL Potassium (3.5-5.1) mmol/L Chloride (98-107) mmol/L BUN (9-20) mg/dL Creatinine (0.66-1.25) mg/dL Glucose (74-99) mg/dL POC Glucose (mg/dL) (75-99) mg/dL Calcium (8.4-10.2) mg/dL Magnesium (1.6-2.3) mg/dL AST (17-59) U/L Alkaline Phosphatase (38-126) U/L Total Protein (6.3-8.2) g/dL Albumin (3.5-5.0) g/dL Arterial Blood Potassium 5.7 H 5.5 H 5.4 H (3.4-4.5) mmol/L Arterial Blood Glucose 202 H 191 H 197 H (75-99) mg/dL Crossmatch 03/30/19 03/30/19 03/30/19 Range/Units 14:20 15:04 16:47 RBC (4.30-5.90) m/uL Hgb (13.0-17.5) gm/dL Hct (39.0-53.0) % RDW (11.5-15.5) % Plt Count (150-450) k/uL Lymphocytes # (1.0-4.8) k/uL PT (9.0-12.0) sec INR (<1.2) ABG pH 7.33 L 7.52 H (7.35-7.45) ABG pCO2 24 L (35-45) mmHg ABG pO2 147 H >420 H (83-108) mmHg ABG HCO3 20 L (21-25) mmol/L ABG Total CO2 (19-24) mmol/L ABG O2 Saturation 99.3 H 100.0 H (94-97) % ABG Hematocrit 23 L 22 L (34.0-46.0) % ABG Potassium 5.5 H 5.4 H (3.4-4.5) mmol/L ABG Ionized Calcium 4.4 L 4.1 L (4.5-5.3) mg/dL ABG Glucose 196 H 170 H (75-99) mg/dL ABG Lactic Acid 2.1 H 2.2 H* (0.5-1.6) mmol/L Hemoglobin 7.6 L 7.2 L (13.0-17.5) gm/dL Potassium (3.5-5.1) mmol/L Chloride (98-107) mmol/L BUN (9-20) mg/dL Creatinine (0.66-1.25) mg/dL Glucose (74-99) mg/dL POC Glucose (mg/dL) 170 H (75-99) mg/dL Calcium (8.4-10.2) mg/dL Magnesium (1.6-2.3) mg/dL AST (17-59) U/L Alkaline Phosphatase (38-126) U/L Total Protein (6.3-8.2) g/dL Albumin (3.5-5.0) g/dL Arterial Blood Potassium 5.5 H 5.4 H (3.4-4.5) mmol/L Arterial Blood Glucose 196 H 170 H (75-99) mg/dL Crossmatch 03/30/19 03/30/19 03/30/19 Range/Units 16:49 16:49 16:49 RBC 3.09 L (4.30-5.90) m/uL Hgb 9.4 L D (13.0-17.5) gm/dL Hct 27.2 L (39.0-53.0) % RDW 15.6 H (11.5-15.5) % Plt Count 90 L (150-450) k/uL Lymphocytes # 0.8 L (1.0-4.8) k/uL PT 12.4 H (9.0-12.0) sec INR 1.2 H (<1.2) ABG pH (7.35-7.45) ABG pCO2 (35-45) mmHg ABG pO2 (83-108) mmHg ABG HCO3 (21-25) mmol/L ABG Total CO2 (19-24) mmol/L ABG O2 Saturation (94-97) % ABG Hematocrit (34.0-46.0) % ABG Potassium (3.4-4.5) mmol/L ABG Ionized Calcium (4.5-5.3) mg/dL ABG Glucose (75-99) mg/dL ABG Lactic Acid (0.5-1.6) mmol/L Hemoglobin (13.0-17.5) gm/dL Potassium 5.3 H (3.5-5.1) mmol/L Chloride 110 H (98-107) mmol/L BUN 23 H (9-20) mg/dL Creatinine 1.40 H (0.66-1.25) mg/dL Glucose 155 H (74-99) mg/dL POC Glucose (mg/dL) (75-99) mg/dL Calcium 8.0 L (8.4-10.2) mg/dL Magnesium 2.5 H (1.6-2.3) mg/dL AST (17-59) U/L Alkaline Phosphatase (38-126) U/L Total Protein 4.4 L (6.3-8.2) g/dL Albumin 2.6 L (3.5-5.0) g/dL Arterial Blood Potassium (3.4-4.5) mmol/L Arterial Blood Glucose (75-99) mg/dL Crossmatch 03/30/19 03/30/19 03/30/19 Range/Units 17:20 17:32 18:04 RBC (4.30-5.90) m/uL Hgb (13.0-17.5) gm/dL Hct (39.0-53.0) % RDW (11.5-15.5) % Plt Count (150-450) k/uL Lymphocytes # (1.0-4.8) k/uL PT (9.0-12.0) sec INR (<1.2) ABG pH 7.32 L (7.35-7.45) ABG pCO2 (35-45) mmHg ABG pO2 >400 H (83-108) mmHg ABG HCO3 (21-25) mmol/L ABG Total CO2 (19-24) mmol/L ABG O2 Saturation 100.0 H (94-97) % ABG Hematocrit (34.0-46.0) % ABG Potassium (3.4-4.5) mmol/L ABG Ionized Calcium (4.5-5.3) mg/dL ABG Glucose (75-99) mg/dL ABG Lactic Acid (0.5-1.6) mmol/L Hemoglobin (13.0-17.5) gm/dL Potassium (3.5-5.1) mmol/L Chloride (98-107) mmol/L BUN (9-20) mg/dL Creatinine (0.66-1.25) mg/dL Glucose (74-99) mg/dL POC Glucose (mg/dL) 137 H 147 H (75-99) mg/dL Calcium (8.4-10.2) mg/dL Magnesium (1.6-2.3) mg/dL AST (17-59) U/L Alkaline Phosphatase (38-126) U/L Total Protein (6.3-8.2) g/dL Albumin (3.5-5.0) g/dL Arterial Blood Potassium (3.4-4.5) mmol/L Arterial Blood Glucose (75-99) mg/dL Crossmatch 03/30/19 03/30/19 03/30/19 Range/Units 19:04 19:40 19:54 RBC 2.51 L (4.30-5.90) m/uL Hgb 7.7 L D (13.0-17.5) gm/dL Hct 21.8 L (39.0-53.0) % RDW 15.8 H (11.5-15.5) % Plt Count 68 L (150-450) k/uL Lymphocytes # 0.4 L (1.0-4.8) k/uL PT (9.0-12.0) sec INR (<1.2) ABG pH (7.35-7.45) ABG pCO2 (35-45) mmHg ABG pO2 (83-108) mmHg ABG HCO3 (21-25) mmol/L ABG Total CO2 (19-24) mmol/L ABG O2 Saturation (94-97) % ABG Hematocrit (34.0-46.0) % ABG Potassium (3.4-4.5) mmol/L ABG Ionized Calcium (4.5-5.3) mg/dL ABG Glucose (75-99) mg/dL ABG Lactic Acid (0.5-1.6) mmol/L Hemoglobin (13.0-17.5) gm/dL Potassium (3.5-5.1) mmol/L Chloride (98-107) mmol/L BUN (9-20) mg/dL Creatinine (0.66-1.25) mg/dL Glucose (74-99) mg/dL POC Glucose (mg/dL) 137 H 141 H (75-99) mg/dL Calcium (8.4-10.2) mg/dL Magnesium (1.6-2.3) mg/dL AST (17-59) U/L Alkaline Phosphatase (38-126) U/L Total Protein (6.3-8.2) g/dL Albumin (3.5-5.0) g/dL Arterial Blood Potassium (3.4-4.5) mmol/L Arterial Blood Glucose (75-99) mg/dL Crossmatch 03/30/19 03/30/19 03/30/19 Range/Units 21:21 21:33 22:00 RBC 2.70 L (4.30-5.90) m/uL Hgb 8.3 L (13.0-17.5) gm/dL Hct 23.8 L (39.0-53.0) % RDW 15.8 H (11.5-15.5) % Plt Count 80 L (150-450) k/uL Lymphocytes # 0.5 L (1.0-4.8) k/uL PT (9.0-12.0) sec INR (<1.2) ABG pH 7.30 L (7.35-7.45) ABG pCO2 (35-45) mmHg ABG pO2 194 H (83-108) mmHg ABG HCO3 20 L (21-25) mmol/L ABG Total CO2 (19-24) mmol/L ABG O2 Saturation 99.6 H (94-97) % ABG Hematocrit (34.0-46.0) % ABG Potassium (3.4-4.5) mmol/L ABG Ionized Calcium (4.5-5.3) mg/dL ABG Glucose (75-99) mg/dL ABG Lactic Acid (0.5-1.6) mmol/L Hemoglobin (13.0-17.5) gm/dL Potassium (3.5-5.1) mmol/L Chloride (98-107) mmol/L BUN (9-20) mg/dL Creatinine (0.66-1.25) mg/dL Glucose (74-99) mg/dL POC Glucose (mg/dL) 144 H (75-99) mg/dL Calcium (8.4-10.2) mg/dL Magnesium (1.6-2.3) mg/dL AST (17-59) U/L Alkaline Phosphatase (38-126) U/L Total Protein (6.3-8.2) g/dL Albumin (3.5-5.0) g/dL Arterial Blood Potassium (3.4-4.5) mmol/L Arterial Blood Glucose (75-99) mg/dL Crossmatch 03/30/19 03/30/19 03/31/19 Range/Units 22:26 23:39 00:44 RBC (4.30-5.90) m/uL Hgb (13.0-17.5) gm/dL Hct (39.0-53.0) % RDW (11.5-15.5) % Plt Count (150-450) k/uL Lymphocytes # (1.0-4.8) k/uL PT (9.0-12.0) sec INR (<1.2) ABG pH (7.35-7.45) ABG pCO2 (35-45) mmHg ABG pO2 (83-108) mmHg ABG HCO3 (21-25) mmol/L ABG Total CO2 (19-24) mmol/L ABG O2 Saturation (94-97) % ABG Hematocrit (34.0-46.0) % ABG Potassium (3.4-4.5) mmol/L ABG Ionized Calcium (4.5-5.3) mg/dL ABG Glucose (75-99) mg/dL ABG Lactic Acid (0.5-1.6) mmol/L Hemoglobin (13.0-17.5) gm/dL Potassium (3.5-5.1) mmol/L Chloride (98-107) mmol/L BUN (9-20) mg/dL Creatinine (0.66-1.25) mg/dL Glucose (74-99) mg/dL POC Glucose (mg/dL) 178 H 176 H 162 H (75-99) mg/dL Calcium (8.4-10.2) mg/dL Magnesium (1.6-2.3) mg/dL AST (17-59) U/L Alkaline Phosphatase (38-126) U/L Total Protein (6.3-8.2) g/dL Albumin (3.5-5.0) g/dL Arterial Blood Potassium (3.4-4.5) mmol/L Arterial Blood Glucose (75-99) mg/dL Crossmatch 03/31/19 03/31/19 03/31/19 Range/Units 01:36 03:13 04:05 RBC 2.67 L (4.30-5.90) m/uL Hgb 7.7 L (13.0-17.5) gm/dL Hct 23.4 L (39.0-53.0) % RDW 15.8 H (11.5-15.5) % Plt Count 76 L (150-450) k/uL Lymphocytes # 0.4 L (1.0-4.8) k/uL PT (9.0-12.0) sec INR (<1.2) ABG pH (7.35-7.45) ABG pCO2 (35-45) mmHg ABG pO2 (83-108) mmHg ABG HCO3 (21-25) mmol/L ABG Total CO2 (19-24) mmol/L ABG O2 Saturation (94-97) % ABG Hematocrit (34.0-46.0) % ABG Potassium (3.4-4.5) mmol/L ABG Ionized Calcium (4.5-5.3) mg/dL ABG Glucose (75-99) mg/dL ABG Lactic Acid (0.5-1.6) mmol/L Hemoglobin (13.0-17.5) gm/dL Potassium (3.5-5.1) mmol/L Chloride (98-107) mmol/L BUN (9-20) mg/dL Creatinine (0.66-1.25) mg/dL Glucose (74-99) mg/dL POC Glucose (mg/dL) 155 H 163 H (75-99) mg/dL Calcium (8.4-10.2) mg/dL Magnesium (1.6-2.3) mg/dL AST (17-59) U/L Alkaline Phosphatase (38-126) U/L Total Protein (6.3-8.2) g/dL Albumin (3.5-5.0) g/dL Arterial Blood Potassium (3.4-4.5) mmol/L Arterial Blood Glucose (75-99) mg/dL Crossmatch 03/31/19 03/31/19 03/31/19 Range/Units 04:05 04:06 05:28 RBC (4.30-5.90) m/uL Hgb (13.0-17.5) gm/dL Hct (39.0-53.0) % RDW (11.5-15.5) % Plt Count (150-450) k/uL Lymphocytes # (1.0-4.8) k/uL PT (9.0-12.0) sec INR (<1.2) ABG pH (7.35-7.45) ABG pCO2 (35-45) mmHg ABG pO2 (83-108) mmHg ABG HCO3 (21-25) mmol/L ABG Total CO2 (19-24) mmol/L ABG O2 Saturation (94-97) % ABG Hematocrit (34.0-46.0) % ABG Potassium (3.4-4.5) mmol/L ABG Ionized Calcium (4.5-5.3) mg/dL ABG Glucose (75-99) mg/dL ABG Lactic Acid (0.5-1.6) mmol/L Hemoglobin (13.0-17.5) gm/dL Potassium (3.5-5.1) mmol/L Chloride 109 H (98-107) mmol/L BUN 26 H (9-20) mg/dL Creatinine 1.74 H (0.66-1.25) mg/dL Glucose 142 H (74-99) mg/dL POC Glucose (mg/dL) 156 H 131 H (75-99) mg/dL Calcium (8.4-10.2) mg/dL Magnesium 2.4 H (1.6-2.3) mg/dL AST 65 H (17-59) U/L Alkaline Phosphatase 36 L (38-126) U/L Total Protein 4.9 L (6.3-8.2) g/dL Albumin 3.1 L (3.5-5.0) g/dL Arterial Blood Potassium (3.4-4.5) mmol/L Arterial Blood Glucose (75-99) mg/dL Crossmatch 03/31/19 Range/Units 06:23 RBC (4.30-5.90) m/uL Hgb (13.0-17.5) gm/dL Hct (39.0-53.0) % RDW (11.5-15.5) % Plt Count (150-450) k/uL Lymphocytes # (1.0-4.8) k/uL PT (9.0-12.0) sec INR (<1.2) ABG pH (7.35-7.45) ABG pCO2 (35-45) mmHg ABG pO2 (83-108) mmHg ABG HCO3 (21-25) mmol/L ABG Total CO2 (19-24) mmol/L ABG O2 Saturation (94-97) % ABG Hematocrit (34.0-46.0) % ABG Potassium (3.4-4.5) mmol/L ABG Ionized Calcium (4.5-5.3) mg/dL ABG Glucose (75-99) mg/dL ABG Lactic Acid (0.5-1.6) mmol/L Hemoglobin (13.0-17.5) gm/dL Potassium (3.5-5.1) mmol/L Chloride (98-107) mmol/L BUN (9-20) mg/dL Creatinine (0.66-1.25) mg/dL Glucose (74-99) mg/dL POC Glucose (mg/dL) 143 H (75-99) mg/dL Calcium (8.4-10.2) mg/dL Magnesium (1.6-2.3) mg/dL AST (17-59) U/L Alkaline Phosphatase (38-126) U/L Total Protein (6.3-8.2) g/dL Albumin (3.5-5.0) g/dL Arterial Blood Potassium (3.4-4.5) mmol/L Arterial Blood Glucose (75-99) mg/dL Crossmatch - Imaging and Cardiology Chest x-ray: report reviewed, image reviewed Assessment and Plan Assessment: 1. Triple-vessel coronary artery disease, with left main disease, status post quadruple coronary artery bypass grafting surgery 2. History of coronary artery disease and myocardial infarction with multiple stents to the RCA and LAD 3. 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 Hypertension 5. Hyperlipidemia 6. Type 2 diabetes mellitus 7. Chronic kidney disease with baseline creatinine 1.7 8. Paroxysmal atrial fibrillation on chronic Eliquis for anticoagulation, status post bilateral pulmonary vein isolation using the bipolar radiofrequency energy by Articure and exclusion of the left atrial appendage using a 35 mm Atriclip 9. Chronic obstructive pulmonary disease 10. Obstructive sleep apnea with home CPAP use 11. Morbid obesity 12. Family history of heart disease Plan: 1. Continue aspirin, statin, Plavix and beta cely. Will increase his metoprolol tartrate 25 mg by mouth twice a day. 2. Encourage incentive spirometry is 10 times every hour while awake. 3. We will start amiodarone 400 mg by mouth twice a day for atrial fibrillation prophylaxis. 4. Bronchodilators per pulmonology management. 5. Increase activity as tolerated, PT/OT/cardiac rehab following. 6. Norvasc 2.5 mg by mouth daily for radial artery spasm prophylaxis. Discontinue nitroglycerin drip. 7. Keep Uribe for another 24 hours for strict accurate intake and output. Home dose of Flomax 0.4 milligrams daily restarted. 8. GI/DVT prophylaxis 9. Insulin management per primary care service. 10. Pain control with current medication regimen. Avoid Toradol due to his history of chronic kidney disease. 11. Remove [place]-D[place] catheter, keep right IJ Cordis in place to continue CVP monitoring. Keep right radial arterial line in place. We will keep his chest tubes in place for at least another 24 hours. 12. Avoid nephrotoxic agents due to his chronic kidney disease. 13. Continue to monitor daily labs and chest x-rays. 14. More recommendations to follow based on patient's clinical course. Time with Patient: Greater than 30
[2019-03-31] MEDS ORDERED: PANTOPRAZOLE 40 MG/10 ML VIAL IVP SCH (09:00)
[2019-03-31] MEDS ORDERED: BISACODYL 10 MG SUPP RECTAL PRN (09:00)
[2019-03-31] MEDS ORDERED: METOPROLOL TARTRATE 12.5 MG TAB PO SCH (09:00)
[2019-03-31 09:27] LABS: Glucose,Whole Blood 247 mg/dL (75-99)
--- NOTE | 2019-03-31 09:59 | P.PN ---
Subjective Progress Note Date: 03/31/19 Principal diagnosis: Coronary artery disease status post coronary artery bypass grafting Patient is seen today March 31, 2019 in follow-up in the intensive care unit. He is awake and alert in no acute distress. He was successfully extubated approximately 10 PM last night. He is currently on room air and maintaining good O2 saturations in the 90s. He is in normal sinus rhythm. Hemodynamically stable. Currently sitting up in a chair at the bedside. Denies any worsening shortness of breath, cough or congestion. Is working well incentive spirometer. Pulling approximately 1 L. Chest x-ray shows some atelectatic changes in the bases. Chest tubes remain in place. Hope-Diana was discontinued. Currently lactated Ringer's at 50 mls per hour. No other drips required. Objective - Vital Signs Vital signs: Vital Signs Temp 98.8 F 03/31/19 01:00 Pulse 89 03/31/19 07:26 Resp 18 03/31/19 07:00 BP 102/51 03/31/19 05:30 Pulse Ox 99 03/31/19 07:00 Intake & Output 03/30/19 03/31/19 03/31/19 18:59 06:59 18:59 Intake Total 336.657 6912.111 50.340 Output Total 3484 1071 Balance -2507.521 671.111 50.340 Intake: IV 955.5 1658.5 ACETAMINOPHEN IV (For NPO 100 100 ) 1,000 mg In Empty Bag 1 bag @ 400 mls/hr IVPB Q6HR [facility] Rx#:[id number] Albumin Human 25% 50 ml 500 500 In Empty Bag 1 bag @ 100 mls/hr IVPB ONCE ONE Rx#: [id number] Cardiac Output 90 240 Lactated Ringers 1,000 ml 150 650 @ 50 mls/hr IV .Q20H [facility] Rx#:[id number] Nitroglycerin-D5w Pmx 50 4.5 1.5 mg In Dextrose/Water 1 250ml.bag @ 5 MCG/MIN 1.5 mls/hr IV .Q24H [facility] Rx#: [id number] Pressure Bag 27 117 ceFAZolin 2 gm In Sodium 50 50 Chloride 0.9% 30 ml @ 60 mls/hr IVPB ONCE ONE Rx#: [id number] Intake, IV Titration 20.979 83.611 50.340 Amount Insulin Regular 100 unit 2.373 45.955 25.065 In Sodium Chloride 0.9% 100 ml @ Per Protocol IV .Q0M [facility] Rx#:[id number] Nitroglycerin-D5w Pmx 50 25.275 mg In Dextrose/Water 1 250ml.bag @ 5 MCG/MIN 1.5 mls/hr IV .Q24H [facility] Rx#: [id number] Norepinephrine 4 mg In 14.945 Sodium Chloride 0.9% 250 ml @ 0.05 MCG/KG/MIN 19. 926 mls/hr IV .[id number] [facility] Rx#:[id number] Propofol 1,000 mg In 3.661 37.656 Empty Bag 1 bag @ Titrate IV .Q0M PRN Rx#: [id number] Output: Chest Tube Drainage 259 264 Left Lateral Chest 144 62 Mediastinal 115 202 Drainage 30 25 Left Calf 30 20 Left Wrist 0 5 Urine 1195 782 Estimated Blood Loss 1999 Other: Voiding Method Indwelling Catheter Indwelling Catheter ABP, PAP, CO, CI - Last Documented Arterial Blood Pressure 125/51 Pulmonary Artery Pressure 34/16 Cardiac Output 6.1 Cardiac Index 2.8 - Exam Constitutional General appearance: Present: cooperative, morbidly obese, no acute distress - Respiratory Details: Lungs sounds essentially clear to his bilateral upper lobe, few scattered crack les to his bilateral bases left greater than right. Respirations are symmetrical and nonlabored. Oxygen saturation is 98% on room air. Achieving 1000 mL on his incentive spirometry. Mediastinal and left pleural chest tubes remain in place to low continuous wall suction -20 cm H2O. No air leak is present. Draining thin serosanguineous drainage. - Cardiovascular Details: Regular rhythm and rate. S1 and S2 present, negative for S3, gallop or murmur. Sternum is stable. Bedside telemetry showing normal sinus rhythm heart rate 97. Atrial and ventricular epicardial pacemaker wires in place and connected to back up to bedside pacemaker generator with a VVI 50. Right IJ Cordis and Hope- Diana catheter in place. Right radial arterial line in place and functioning. Knee-high YANG hose and sequential compression devices in place to his bilateral lower extremities. Heart hugger is in place and he is demonstrating appropriate use. No edema present. - Gastrointestinal Gastrointestinal Comment(s): Abdomen is soft, nontender and nondistended. Active bowel sounds present in all 4 abdominal quadrants. No guarding or rigidity. No organomegaly. Passing flatus. Morbidly obese. - Genitourinary Genitourinary Comment(s): Uribe catheter for accurate I&O. Draining clear harvinder urine. - Integumentary Integumentary Comment(s): Skin is warm and dry. No clubbing or cyanosis is present. No rash or abnormal pigmentation is present. Midline sternal incision is clean, dry and ap proximated. No drainage or redness is present. Exofin dressing is clean, dry and in place. Left radial harvest sites are clean, dry and approximated. No drainage or redness is present. MANDY drain in place to his left forearm with 5 mL of thin serosanguineous drainage since surgery. Left and right lower extremity EVH sites clean, dry and approximated. No drainage or redness is present. Left lower extremity MANDY drain in place with 20 mL of thin serosanguineous drainage in the last 8 hours. - Neurologic Neurologic Comment(s): No focal neurological deficits. Neurologic: Present: CNII-XII intact - Musculoskeletal Musculoskeletal: Present: gait normal, generalized weakness, strength equal bilaterally - Psychiatric Psychiatric: Present: A&O x's 3, appropriate affect, intact judgment & insight - Labs CBC & Chem 7: 03/31/19 04:05 03/31/19 04:05 Labs: Abnormal Lab Results - Last 24 Hours (Table) 03/29/19 03/30/19 03/30/19 Range/Units 05:44 08:54 11:49 RBC (4.30-5.90) m/uL Hgb (13.0-17.5) gm/dL Hct (39.0-53.0) % RDW (11.5-15.5) % Plt Count (150-450) k/uL Lymphocytes # (1.0-4.8) k/uL PT (9.0-12.0) sec INR (<1.2) ABG pH (7.35-7.45) ABG pCO2 (35-45) mmHg ABG pO2 363 H >420 H (83-108) mmHg ABG HCO3 (21-25) mmol/L ABG Total CO2 26 H (19-24) mmol/L ABG O2 Saturation 99.9 H 100.0 H (94-97) % ABG Hematocrit 26 L (34.0-46.0) % ABG Potassium 4.6 H (3.4-4.5) mmol/L ABG Ionized Calcium 4.3 L (4.5-5.3) mg/dL ABG Glucose 120 H 118 H (75-99) mg/dL ABG Lactic Acid 1.7 H (0.5-1.6) mmol/L Hemoglobin 11.5 L 8.6 L (13.0-17.5) gm/dL Potassium (3.5-5.1) mmol/L Chloride (98-107) mmol/L BUN (9-20) mg/dL Creatinine (0.66-1.25) mg/dL Glucose (74-99) mg/dL POC Glucose (mg/dL) (75-99) mg/dL Calcium (8.4-10.2) mg/dL Magnesium (1.6-2.3) mg/dL AST (17-59) U/L Alkaline Phosphatase (38-126) U/L Total Protein (6.3-8.2) g/dL Albumin (3.5-5.0) g/dL Arterial Blood Potassium 4.6 H (3.4-4.5) mmol/L Arterial Blood Glucose 120 H 118 H (75-99) mg/dL Crossmatch See Detail 03/30/19 03/30/19 03/30/19 Range/Units 12:31 12:56 13:34 RBC (4.30-5.90) m/uL Hgb (13.0-17.5) gm/dL Hct (39.0-53.0) % RDW (11.5-15.5) % Plt Count (150-450) k/uL Lymphocytes # (1.0-4.8) k/uL PT (9.0-12.0) sec INR (<1.2) ABG pH 7.33 L (7.35-7.45) ABG pCO2 (35-45) mmHg ABG pO2 352 H 126 H 329 H (83-108) mmHg ABG HCO3 (21-25) mmol/L ABG Total CO2 25 H 25 H 25 H (19-24) mmol/L ABG O2 Saturation 100.0 H 99.1 H 99.9 H (94-97) % ABG Hematocrit 24 L 25 L 25 L (34.0-46.0) % ABG Potassium 5.7 H 5.5 H 5.4 H (3.4-4.5) mmol/L ABG Ionized Calcium 4.4 L (4.5-5.3) mg/dL ABG Glucose 202 H 191 H 197 H (75-99) mg/dL ABG Lactic Acid (0.5-1.6) mmol/L Hemoglobin 7.9 L 8.1 L 8.2 L (13.0-17.5) gm/dL Potassium (3.5-5.1) mmol/L Chloride (98-107) mmol/L BUN (9-20) mg/dL Creatinine (0.66-1.25) mg/dL Glucose (74-99) mg/dL POC Glucose (mg/dL) (75-99) mg/dL Calcium (8.4-10.2) mg/dL Magnesium (1.6-2.3) mg/dL AST (17-59) U/L Alkaline Phosphatase (38-126) U/L Total Protein (6.3-8.2) g/dL Albumin (3.5-5.0) g/dL Arterial Blood Potassium 5.7 H 5.5 H 5.4 H (3.4-4.5) mmol/L Arterial Blood Glucose 202 H 191 H 197 H (75-99) mg/dL Crossmatch 03/30/19 03/30/19 03/30/19 Range/Units 14:20 15:04 16:47 RBC (4.30-5.90) m/uL Hgb (13.0-17.5) gm/dL Hct (39.0-53.0) % RDW (11.5-15.5) % Plt Count (150-450) k/uL Lymphocytes # (1.0-4.8) k/uL PT (9.0-12.0) sec INR (<1.2) ABG pH 7.33 L 7.52 H (7.35-7.45) ABG pCO2 24 L (35-45) mmHg ABG pO2 147 H >420 H (83-108) mmHg ABG HCO3 20 L (21-25) mmol/L ABG Total CO2 (19-24) mmol/L ABG O2 Saturation 99.3 H 100.0 H (94-97) % ABG Hematocrit 23 L 22 L (34.0-46.0) % ABG Potassium 5.5 H 5.4 H (3.4-4.5) mmol/L ABG Ionized Calcium 4.4 L 4.1 L (4.5-5.3) mg/dL ABG Glucose 196 H 170 H (75-99) mg/dL ABG Lactic Acid 2.1 H 2.2 H* (0.5-1.6) mmol/L Hemoglobin 7.6 L 7.2 L (13.0-17.5) gm/dL Potassium (3.5-5.1) mmol/L Chloride (98-107) mmol/L BUN (9-20) mg/dL Creatinine (0.66-1.25) mg/dL Glucose (74-99) mg/dL POC Glucose (mg/dL) 170 H (75-99) mg/dL Calcium (8.4-10.2) mg/dL Magnesium (1.6-2.3) mg/dL AST (17-59) U/L Alkaline Phosphatase (38-126) U/L Total Protein (6.3-8.2) g/dL Albumin (3.5-5.0) g/dL Arterial Blood Potassium 5.5 H 5.4 H (3.4-4.5) mmol/L Arterial Blood Glucose 196 H 170 H (75-99) mg/dL Crossmatch 03/30/19 03/30/19 03/30/19 Range/Units 16:49 16:49 16:49 RBC 3.09 L (4.30-5.90) m/uL Hgb 9.4 L D (13.0-17.5) gm/dL Hct 27.2 L (39.0-53.0) % RDW 15.6 H (11.5-15.5) % Plt Count 90 L (150-450) k/uL Lymphocytes # 0.8 L (1.0-4.8) k/uL PT 12.4 H (9.0-12.0) sec INR 1.2 H (<1.2) ABG pH (7.35-7.45) ABG pCO2 (35-45) mmHg ABG pO2 (83-108) mmHg ABG HCO3 (21-25) mmol/L ABG Total CO2 (19-24) mmol/L ABG O2 Saturation (94-97) % ABG Hematocrit (34.0-46.0) % ABG Potassium (3.4-4.5) mmol/L ABG Ionized Calcium (4.5-5.3) mg/dL ABG Glucose (75-99) mg/dL ABG Lactic Acid (0.5-1.6) mmol/L Hemoglobin (13.0-17.5) gm/dL Potassium 5.3 H (3.5-5.1) mmol/L Chloride 110 H (98-107) mmol/L BUN 23 H (9-20) mg/dL Creatinine 1.40 H (0.66-1.25) mg/dL Glucose 155 H (74-99) mg/dL POC Glucose (mg/dL) (75-99) mg/dL Calcium 8.0 L (8.4-10.2) mg/dL Magnesium 2.5 H (1.6-2.3) mg/dL AST (17-59) U/L Alkaline Phosphatase (38-126) U/L Total Protein 4.4 L (6.3-8.2) g/dL Albumin 2.6 L (3.5-5.0) g/dL Arterial Blood Potassium (3.4-4.5) mmol/L Arterial Blood Glucose (75-99) mg/dL Crossmatch 03/30/19 03/30/19 03/30/19 Range/Units 17:20 17:32 18:04 RBC (4.30-5.90) m/uL Hgb (13.0-17.5) gm/dL Hct (39.0-53.0) % RDW (11.5-15.5) % Plt Count (150-450) k/uL Lymphocytes # (1.0-4.8) k/uL PT (9.0-12.0) sec INR (<1.2) ABG pH 7.32 L (7.35-7.45) ABG pCO2 (35-45) mmHg ABG pO2 >400 H (83-108) mmHg ABG HCO3 (21-25) mmol/L ABG Total CO2 (19-24) mmol/L ABG O2 Saturation 100.0 H (94-97) % ABG Hematocrit (34.0-46.0) % ABG Potassium (3.4-4.5) mmol/L ABG Ionized Calcium (4.5-5.3) mg/dL ABG Glucose (75-99) mg/dL ABG Lactic Acid (0.5-1.6) mmol/L Hemoglobin (13.0-17.5) gm/dL Potassium (3.5-5.1) mmol/L Chloride (98-107) mmol/L BUN (9-20) mg/dL Creatinine (0.66-1.25) mg/dL Glucose (74-99) mg/dL POC Glucose (mg/dL) 137 H 147 H (75-99) mg/dL Calcium (8.4-10.2) mg/dL Magnesium (1.6-2.3) mg/dL AST (17-59) U/L Alkaline Phosphatase (38-126) U/L Total Protein (6.3-8.2) g/dL Albumin (3.5-5.0) g/dL Arterial Blood Potassium (3.4-4.5) mmol/L Arterial Blood Glucose (75-99) mg/dL Crossmatch 03/30/19 03/30/19 03/30/19 Range/Units 19:04 19:40 19:54 RBC 2.51 L (4.30-5.90) m/uL Hgb 7.7 L D (13.0-17.5) gm/dL Hct 21.8 L (39.0-53.0) % RDW 15.8 H (11.5-15.5) % Plt Count 68 L (150-450) k/uL Lymphocytes # 0.4 L (1.0-4.8) k/uL PT (9.0-12.0) sec INR (<1.2) ABG pH (7.35-7.45) ABG pCO2 (35-45) mmHg ABG pO2 (83-108) mmHg ABG HCO3 (21-25) mmol/L ABG Total CO2 (19-24) mmol/L ABG O2 Saturation (94-97) % ABG Hematocrit (34.0-46.0) % ABG Potassium (3.4-4.5) mmol/L ABG Ionized Calcium (4.5-5.3) mg/dL ABG Glucose (75-99) mg/dL ABG Lactic Acid (0.5-1.6) mmol/L Hemoglobin (13.0-17.5) gm/dL Potassium (3.5-5.1) mmol/L Chloride (98-107) mmol/L BUN (9-20) mg/dL Creatinine (0.66-1.25) mg/dL Glucose (74-99) mg/dL POC Glucose (mg/dL) 137 H 141 H (75-99) mg/dL Calcium (8.4-10.2) mg/dL Magnesium (1.6-2.3) mg/dL AST (17-59) U/L Alkaline Phosphatase (38-126) U/L Total Protein (6.3-8.2) g/dL Albumin (3.5-5.0) g/dL Arterial Blood Potassium (3.4-4.5) mmol/L Arterial Blood Glucose (75-99) mg/dL Crossmatch 03/30/19 03/30/19 03/30/19 Range/Units 21:21 21:33 22:00 RBC 2.70 L (4.30-5.90) m/uL Hgb 8.3 L (13.0-17.5) gm/dL Hct 23.8 L (39.0-53.0) % RDW 15.8 H (11.5-15.5) % Plt Count 80 L (150-450) k/uL Lymphocytes # 0.5 L (1.0-4.8) k/uL PT (9.0-12.0) sec INR (<1.2) ABG pH 7.30 L (7.35-7.45) ABG pCO2 (35-45) mmHg ABG pO2 194 H (83-108) mmHg ABG HCO3 20 L (21-25) mmol/L ABG Total CO2 (19-24) mmol/L ABG O2 Saturation 99.6 H (94-97) % ABG Hematocrit (34.0-46.0) % ABG Potassium (3.4-4.5) mmol/L ABG Ionized Calcium (4.5-5.3) mg/dL ABG Glucose (75-99) mg/dL ABG Lactic Acid (0.5-1.6) mmol/L Hemoglobin (13.0-17.5) gm/dL Potassium (3.5-5.1) mmol/L Chloride (98-107) mmol/L BUN (9-20) mg/dL Creatinine (0.66-1.25) mg/dL Glucose (74-99) mg/dL POC Glucose (mg/dL) 144 H (75-99) mg/dL Calcium (8.4-10.2) mg/dL Magnesium (1.6-2.3) mg/dL AST (17-59) U/L Alkaline Phosphatase (38-126) U/L Total Protein (6.3-8.2) g/dL Albumin (3.5-5.0) g/dL Arterial Blood Potassium (3.4-4.5) mmol/L Arterial Blood Glucose (75-99) mg/dL Crossmatch 03/30/19 03/30/19 03/31/19 Range/Units 22:26 23:39 00:44 RBC (4.30-5.90) m/uL Hgb (13.0-17.5) gm/dL Hct (39.0-53.0) % RDW (11.5-15.5) % Plt Count (150-450) k/uL Lymphocytes # (1.0-4.8) k/uL PT (9.0-12.0) sec INR (<1.2) ABG pH (7.35-7.45) ABG pCO2 (35-45) mmHg ABG pO2 (83-108) mmHg ABG HCO3 (21-25) mmol/L ABG Total CO2 (19-24) mmol/L ABG O2 Saturation (94-97) % ABG Hematocrit (34.0-46.0) % ABG Potassium (3.4-4.5) mmol/L ABG Ionized Calcium (4.5-5.3) mg/dL ABG Glucose (75-99) mg/dL ABG Lactic Acid (0.5-1.6) mmol/L Hemoglobin (13.0-17.5) gm/dL Potassium (3.5-5.1) mmol/L Chloride (98-107) mmol/L BUN (9-20) mg/dL Creatinine (0.66-1.25) mg/dL Glucose (74-99) mg/dL POC Glucose (mg/dL) 178 H 176 H 162 H (75-99) mg/dL Calcium (8.4-10.2) mg/dL Magnesium (1.6-2.3) mg/dL AST (17-59) U/L Alkaline Phosphatase (38-126) U/L Total Protein (6.3-8.2) g/dL Albumin (3.5-5.0) g/dL Arterial Blood Potassium (3.4-4.5) mmol/L Arterial Blood Glucose (75-99) mg/dL Crossmatch 03/31/19 03/31/19 03/31/19 Range/Units 01:36 03:13 04:05 RBC 2.67 L (4.30-5.90) m/uL Hgb 7.7 L (13.0-17.5) gm/dL Hct 23.4 L (39.0-53.0) % RDW 15.8 H (11.5-15.5) % Plt Count 76 L (150-450) k/uL Lymphocytes # 0.4 L (1.0-4.8) k/uL PT (9.0-12.0) sec INR (<1.2) ABG pH (7.35-7.45) ABG pCO2 (35-45) mmHg ABG pO2 (83-108) mmHg ABG HCO3 (21-25) mmol/L ABG Total CO2 (19-24) mmol/L ABG O2 Saturation (94-97) % ABG Hematocrit (34.0-46.0) % ABG Potassium (3.4-4.5) mmol/L ABG Ionized Calcium (4.5-5.3) mg/dL ABG Glucose (75-99) mg/dL ABG Lactic Acid (0.5-1.6) mmol/L Hemoglobin (13.0-17.5) gm/dL Potassium (3.5-5.1) mmol/L Chloride (98-107) mmol/L BUN (9-20) mg/dL Creatinine (0.66-1.25) mg/dL Glucose (74-99) mg/dL POC Glucose (mg/dL) 155 H 163 H (75-99) mg/dL Calcium (8.4-10.2) mg/dL Magnesium (1.6-2.3) mg/dL AST (17-59) U/L Alkaline Phosphatase (38-126) U/L Total Protein (6.3-8.2) g/dL Albumin (3.5-5.0) g/dL Arterial Blood Potassium (3.4-4.5) mmol/L Arterial Blood Glucose (75-99) mg/dL Crossmatch 03/31/19 03/31/19 03/31/19 Range/Units 04:05 04:06 05:28 RBC (4.30-5.90) m/uL Hgb (13.0-17.5) gm/dL Hct (39.0-53.0) % RDW (11.5-15.5) % Plt Count (150-450) k/uL Lymphocytes # (1.0-4.8) k/uL PT (9.0-12.0) sec INR (<1.2) ABG pH (7.35-7.45) ABG pCO2 (35-45) mmHg ABG pO2 (83-108) mmHg ABG HCO3 (21-25) mmol/L ABG Total CO2 (19-24) mmol/L ABG O2 Saturation (94-97) % ABG Hematocrit (34.0-46.0) % ABG Potassium (3.4-4.5) mmol/L ABG Ionized Calcium (4.5-5.3) mg/dL ABG Glucose (75-99) mg/dL ABG Lactic Acid (0.5-1.6) mmol/L Hemoglobin (13.0-17.5) gm/dL Potassium (3.5-5.1) mmol/L Chloride 109 H (98-107) mmol/L BUN 26 H (9-20) mg/dL Creatinine 1.74 H (0.66-1.25) mg/dL Glucose 142 H (74-99) mg/dL POC Glucose (mg/dL) 156 H 131 H (75-99) mg/dL Calcium (8.4-10.2) mg/dL Magnesium 2.4 H (1.6-2.3) mg/dL AST 65 H (17-59) U/L Alkaline Phosphatase 36 L (38-126) U/L Total Protein 4.9 L (6.3-8.2) g/dL Albumin 3.1 L (3.5-5.0) g/dL Arterial Blood Potassium (3.4-4.5) mmol/L Arterial Blood Glucose (75-99) mg/dL Crossmatch 03/31/19 03/31/19 03/31/19 Range/Units 06:23 07:26 08:20 RBC (4.30-5.90) m/uL Hgb (13.0-17.5) gm/dL Hct (39.0-53.0) % RDW (11.5-15.5) % Plt Count (150-450) k/uL Lymphocytes # (1.0-4.8) k/uL PT (9.0-12.0) sec INR (<1.2) ABG pH (7.35-7.45) ABG pCO2 (35-45) mmHg ABG pO2 (83-108) mmHg ABG HCO3 (21-25) mmol/L ABG Total CO2 (19-24) mmol/L ABG O2 Saturation (94-97) % ABG Hematocrit (34.0-46.0) % ABG Potassium (3.4-4.5) mmol/L ABG Ionized Calcium (4.5-5.3) mg/dL ABG Glucose (75-99) mg/dL ABG Lactic Acid (0.5-1.6) mmol/L Hemoglobin (13.0-17.5) gm/dL Potassium (3.5-5.1) mmol/L Chloride (98-107) mmol/L BUN (9-20) mg/dL Creatinine (0.66-1.25) mg/dL Glucose (74-99) mg/dL POC Glucose (mg/dL) 143 H 140 H 268 H (75-99) mg/dL Calcium (8.4-10.2) mg/dL Magnesium (1.6-2.3) mg/dL AST (17-59) U/L Alkaline Phosphatase (38-126) U/L Total Protein (6.3-8.2) g/dL Albumin (3.5-5.0) g/dL Arterial Blood Potassium (3.4-4.5) mmol/L Arterial Blood Glucose (75-99) mg/dL Crossmatch 03/31/19 Range/Units 09:26 RBC (4.30-5.90) m/uL Hgb (13.0-17.5) gm/dL Hct (39.0-53.0) % RDW (11.5-15.5) % Plt Count (150-450) k/uL Lymphocytes # (1.0-4.8) k/uL PT (9.0-12.0) sec INR (<1.2) ABG pH (7.35-7.45) ABG pCO2 (35-45) mmHg ABG pO2 (83-108) mmHg ABG HCO3 (21-25) mmol/L ABG Total CO2 (19-24) mmol/L ABG O2 Saturation (94-97) % ABG Hematocrit (34.0-46.0) % ABG Potassium (3.4-4.5) mmol/L ABG Ionized Calcium (4.5-5.3) mg/dL ABG Glucose (75-99) mg/dL ABG Lactic Acid (0.5-1.6) mmol/L Hemoglobin (13.0-17.5) gm/dL Potassium (3.5-5.1) mmol/L Chloride (98-107) mmol/L BUN (9-20) mg/dL Creatinine (0.66-1.25) mg/dL Glucose (74-99) mg/dL POC Glucose (mg/dL) 247 H (75-99) mg/dL Calcium (8.4-10.2) mg/dL Magnesium (1.6-2.3) mg/dL AST (17-59) U/L Alkaline Phosphatase (38-126) U/L Total Protein (6.3-8.2) g/dL Albumin (3.5-5.0) g/dL Arterial Blood Potassium (3.4-4.5) mmol/L Arterial Blood Glucose (75-99) mg/dL Crossmatch Assessment and Plan Plan: #1 Coronary artery disease with significant disease involving the proximal LAD and left main. Status post coronary artery bypass grafting utilizing a RAMIREZ to the LAD, saphenous vein grafts to the diag, LVB, PDA. Left radial arterial graft to the OM1 postoperative day #1. He was extubated yesterday without any major difficulties. This morning he is on room air oxygen. He is using incentive spirometer. He is hemodynamically stable. His off the nitroglycerin drip. Switch to Norvasc. Cardiac output was 0.4 with an index of 3.4. Rest of the hemodynamics are all stable. No pressors. Adequate urine output.. The chest tube. #2 Previous history of coronary artery disease with stent placement #3 Ischemic cardiomyopathy and ventricular tachycardia status post AICD placem ent. The AICD was reprogrammed yesterday. #4 History of atrial fibrillation. The patient is in a stable sinus rhythm. He was started on amiodarone 400 mg by mouth twice a day. #5 Chronic bronchitis, currently inactive and stable. FEV1 value 63% of predicted. #6 Hyperlipidemia. #7 Hypertension. #8 History of pulmonary embolism. #9 Obstructive sleep apnea utilizing CPAP. 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 #11 Diabetes mellitus. #12 Peripheral neuropathy. #13 History of gout. Plan Continue using incentive spirometer. Monitor the output from the chest tube. Ambulate in the hallway. Cardiac rhythm is sinus. Amiodarone was added. Norvasc was added. Continue aspirin. Continue Plavix. Continue the bronchodilators. Continue high-dose statins. AICD has been program. Sternum stable clean and intact. Chest tubes are all in place. Chest x-ray was reviewed and there are no acute abnormalities. No evidence of any pneumothorax. He has brought his own CPAP machine and he is on a CPAP machine at a pressure of 14 cm of water. This will be reinitiated here in the ICU. We'll continue to follow.
[2019-03-31 10:14] LABS: Glucose,Whole Blood 224 mg/dL (75-99)
[2019-03-31 11:23] LABS: Glucose,Whole Blood 190 mg/dL (75-99)
[2019-03-31] MEDS: ATORVASTATIN 40 MG TAB PO SCH (11:34)
[2019-03-31 12:17] LABS: Glucose,Whole Blood 178 mg/dL (75-99)
[2019-03-31 13:40] LABS: Glucose,Whole Blood 224 mg/dL (75-99)
[2019-03-31] MEDS: INSULIN REGULAR 100 UNIT in SODIUM CHLORIDE 0.9% 100 ML IV SCH ×2 (13:40→21:32)
[2019-03-31] MEDS: LACTATED RINGERS 1,000 ML IV SCH (13:41)
[2019-03-31 15:08] LABS: Glucose,Whole Blood 211 mg/dL (75-99)
[2019-03-31 16:05] LABS: Glucose,Whole Blood 209 mg/dL (75-99)
--- NOTE | 2019-03-31 16:18 | PN ---
PROGRESS NOTE FOLLOW-UP NOTE: Rafal is a 73-year-old gentleman who is status post CABG postoperative number 1. This morning he is doing well, extubated. Remains in sinus rhythm and hemodynamically stable. CURRENT MEDICATIONS: Current medications include: 1. Amiodarone 400 b.i.d. 2. Norvasc 2.5 mg daily. 3. Aspirin. 4. Lipitor. 5. Plavix. 6. Amiodarone. 7. Lopressor. Patient developed an episode of atrial fibrillation. PHYSICAL EXAMINATION: Comfortable at rest. Heart rate is 90 beats per minute. Blood pressure is 110/70. Respiratory rate is 22. Chest exam reveals diminished air entry bilaterally. Heart exam reveals first and second heart sounds. No gallop. Examination of extremities did not reveal any edema. LABS: Labs show that potassium is 4.9, creatinine is 1.7, hemoglobin is 7.7. ASSESSMENT: 1. Coronary artery disease, status post coronary artery bypass grafting, postoperative day number 1. 2. Chronic obstructive pulmonary disease. 3. Paroxysmal atrial fibrillation, status post Maze procedure. The patient will continue with current medications. MMODL / IJN: [id number] /
[2019-03-31 16:58] LABS: Glucose,Whole Blood 176 mg/dL (75-99)
[2019-03-31 18:09] LABS: Glucose,Whole Blood 209 mg/dL (75-99)
[2019-03-31 18:55] LABS: Glucose,Whole Blood 203 mg/dL (75-99)
[2019-03-31 20:33] LABS: Glucose,Whole Blood 169 mg/dL (75-99)
[2019-03-31] MEDS: SENNOSIDES-DOCUSATE SODIUM 1 EACH TAB PO SCH (21:22)
[2019-03-31 21:32] LABS: Glucose,Whole Blood 144 mg/dL (75-99)
[2019-03-31 22:22] LABS: Glucose,Whole Blood 142 mg/dL (75-99)
[2019-03-31 23:40] LABS: Glucose,Whole Blood 130 mg/dL (75-99)
[2019-04-01 01:09] LABS: Glucose,Whole Blood 115 mg/dL (75-99)
[2019-04-01 02:02] LABS: Glucose,Whole Blood 112 mg/dL (75-99)
[2019-04-01 04:25] LABS: Glucose,Whole Blood 229 mg/dL (75-99)
[2019-04-01 04:34] LABS: Anisocytosis Slight; Basophils % (A) 0 %; Eosinophils % (A) 0 %; Lymphocytes # (A) 0.8 k/uL (1.0-4.8); Lymphocytes % (A) 11 %; MCH 30.2 pg (25.0-35.0); MCHC 34.5 g/dL (31.0-37.0); MCV 87.6 fL (80.0-100.0); Mean Platelet Volume 9.1; Monocytes # (A) 0.6 k/uL (0-1.0); Monocytes % (A) 8 %; Neutrophils # (A) 5.7 k/uL (1.3-7.7); Neutrophils % (A) 77 %; Poikilocytosis Slight; RBC 2.21 m/uL (4.30-5.90); RDW 16.4 % (11.5-15.5); WBC 7.5 k/uL (3.8-10.6)
[2019-04-01] MEDS: HYDROcodone/APAP 5-325MG 1 EACH TAB PO PRN (04:39)
[2019-04-01 04:45] LABS: Ionized Calcium 4.6 mg/dL (4.5-5.3); Platelet Count 63 k/uL (150-450)
[2019-04-01 04:47] LABS: HGB 6.7 gm/dL (13.0-17.5)
[2019-04-01 04:48] LABS: HCT 19.4 % (39.0-53.0)
[2019-04-01 04:53] LABS: Albumin 3.3 g/dL (3.5-5.0); Calcium 8.4 mg/dL (8.4-10.2); Potassium 5.1 mmol/L (3.5-5.1); Total Bilirubin 0.7 mg/dL (0.2-1.3); Total Protein 5.1 g/dL (6.3-8.2)
[2019-04-01 04:57] LABS: Anisocytosis Slight; HCT 19.6 % (39.0-53.0); HGB 6.7 gm/dL (13.0-17.5); MCHC 34.3 g/dL (31.0-37.0); MCV 87.6 fL (80.0-100.0); Mean Platelet Volume 9.5; Platelet Count 65 k/uL (150-450); Poikilocytosis Slight; RBC 2.24 m/uL (4.30-5.90); RDW 16.5 % (11.5-15.5); WBC 7.4 k/uL (3.8-10.6)
[2019-04-01 05:31] LABS: Glucose,Whole Blood 221 mg/dL (75-99)
[2019-04-01 06:09] LABS: Glucose,Whole Blood 195 mg/dL (75-99)
[2019-04-01] MEDS: PANTOPRAZOLE 40 MG TABLET PO SCH (06:10)
[2019-04-01 07:10] LABS: Glucose,Whole Blood 165 mg/dL (75-99)
--- NOTE | 2019-04-01 07:26 | XR ---
EXAMINATION TYPE: XR chest 1V portable DATE OF EXAM: 04/01/2019 COMPARISON: 03/31/2019 HISTORY: Post cardiac surgery. Follow-up exam. TECHNIQUE: Single frontal view of the chest is obtained. FINDINGS: Cardiomediastinal silhouette is enlarged with post CABG changes. Mediastinal drains remain . Right-sided [place] catheter has been removed with internal jugular central venous catheter sheat h remaining. Single lead left-sided cardiac device is noted. Left thoracostomy tube is in unchanged p osition. Bibasilar atelectasis is seen with probable very trace pleural effusions. IMPRESSION: Interval removal of the [place] catheter. Otherwise stable exam with trace pleural eff usions and bibasilar atelectasis.
[2019-04-01] MEDS: IPRATROPIUM-ALBUTEROL 3 ML NEB INHALATION SCH ×4 (07:42→19:45)
[2019-04-01 08:10] LABS: Glucose,Whole Blood 183 mg/dL (75-99)
[2019-04-01] MEDS: METOPROLOL TARTRATE 25 MG TAB PO SCH (08:19)
[2019-04-01] MEDS: ASPIRIN 325 MG TAB PO SCH (08:19)
[2019-04-01] MEDS: TAMSULOSIN 0.4 MG CAP.ER.24H PO SCH (08:19)
[2019-04-01] MEDS: HEPARIN SODIUM,PORCINE 5,000 UNIT/ML 1 ML VIAL SQ SCH ×2 (08:19→16:08)
[2019-04-01] MEDS: ATORVASTATIN 40 MG TAB PO SCH (08:19)
[2019-04-01] MEDS: CLOPIDOGREL 75 MG TAB PO SCH (08:19)
[2019-04-01] MEDS: AMIODARONE 200 MG TAB PO SCH ×2 (08:19→21:31)
[2019-04-01] MEDS: MUPIROCIN 2% OINT 22 GM TUBE NASAL SCH ×2 (08:20→21:30)
[2019-04-01] MEDS: amLODIPine 2.5 MG TAB PO SCH (08:20)
--- NOTE | 2019-04-01 09:23 | P.PN ---
Subjective Progress Note Date: 04/01/19 Principal diagnosis: Triple-vessel coronary artery disease with history of coronary artery disease and myocardial infarction with multiple stents to his right coronary artery and left anterior descending coronary artery, past medical history significant for ventricular fibrillation arrest after stenting in 2010 with placement of Medtronic AICD, mild to moderate left ventricular dysfunction, hypertension, hyperlipidemia, chronic kidney disease with a baseline creatinine of 1.7, diabetes mellitus type 2, paroxysmal atrial fibrillation on chronic Eliquis for anticoagulation, chronic obstructive pulmonary disease, morbid obesity, obstructive sleep apnea with home CPAP use and family history of heart disease. POD #2 quadruple coronary artery bypass grafting using the left internal mammary artery to the left anterior descending coronary artery, a left radial artery from the aorta to the first obtuse marginal coronary artery, a reverse greater saphenous vein graft from the aorta to the diagonal coronary artery, a reverse greater saphenous vein graft from the aorta to the posterior descending coronary artery, and a reverse greater saphenous vein graft from aorta to the posterior lateral branch of the right coronary artery. Bilateral pulmonary vein isolation using the bipolar radiofrequency energy by Atricure, exclusion of the left atrial appendage using a 35 mm Atriclip, intraoperative graft flow measurements using the Mlogstim system, intraoperative transesophageal echocardiogram and epi-aortic scanning. Postoperative acute blood loss anemia, an expected outcome due to hemodilution and cardiopulmonary bypass. Thrombocytopenia, an expected outcome due to his preoperative thrombocytopenia. The patient is sitting up to the bedside chair in the intensive care unit. He is in no acute distress and is hemodynamically stable and is currently on no inotropic or pressor support. He is complaining of surgical type pain to his left pleural chest tube insertion site. Denies any complaints of shortness of breath. Oxygen saturation is 96% on room air and demonstrating good use on his incentive spirometry and is achieving 500-750 mL. Right IJ Cordis in place, current CVP is 12 mmHg. Mediastinal and left pleural chest tubes remain in place to low continuous wall suction -20 cm H2O. No air leak is present. Draining thin serosanguineous drainage. Mediastinal chest tubes with 50 mL output in the last 8 hours, 220 mL output in the last 24 hrs. Left pleural chest tube with 200 mL output in the last 24 hr, 90 mL output in the last 8 hours. The patient ambulated in the intensive care unit hallway twice yesterday with minimal assistance from the nurses. Hemoglobin was 6.7 and hematocrit 19.6 on this morning's labs and he is currently receiving 1 unit of packed red blood cells. Objective - Vital Signs Vital signs: Vital Signs Temp 98.4 F 04/01/19 08:00 Pulse 103 H 04/01/19 08:00 Resp 21 04/01/19 08:00 BP 99/56 04/01/19 08:00 Pulse Ox 90 L 04/01/19 08:00 Intake & Output 03/31/19 04/01/19 04/01/19 18:59 06:59 18:59 Intake Total 2196.939 403.715 50.627 Output Total 705 905 0 Balance 1491.939 -501.285 50.627 Weight 104.6 kg 113.9 kg Intake: IV 366 312 26 Cardiac Output 10 Lactated Ringers 1,000 ml 290 240 20 @ 20 mls/hr IV .Q24H ALBINO Rx#:[id number] Pressure Bag 66 72 6 Intake, IV Titration 230.939 91.715 24.627 Amount Insulin Regular 100 unit 105.664 91.715 24.627 In Sodium Chloride 0.9% 100 ml @ Per Protocol IV .Q0M ALBINO Rx#:[id number] Nitroglycerin-D5w Pmx 50 25.275 mg In Dextrose/Water 1 250ml.bag @ 5 MCG/MIN 1.5 mls/hr IV .Q24H ALBINO Rx#: [id number] ceFAZolin 2 gm In Sodium 100 Chloride 0.9% 50 ml @ 100 mls/hr IVPB Q8HR ALBINO Rx# :[id number] Oral 1600 Blood Product 0 Rc As-1 Unit 0 [id number] Output: Chest Tube Drainage 200 200 Left Lateral Chest 80 110 Mediastinal 120 90 Drainage 0 Left Calf 0 Left Wrist 0 Urine 505 705 0 Other: Voiding Method Indwelling Catheter # Voids 0 0 # Bowel Movements 1 1 ABP, PAP, CO, CI - Last Documented Arterial Blood Pressure 138/76 Pulmonary Artery Pressure 28/11 Cardiac Output 7.4 Cardiac Index 3.4 - Constitutional General appearance: Present: cooperative, morbidly obese, no acute distress - Respiratory Details: Lung sounds essentially clear to his bilateral upper lobes, few scattered crackles to his bilateral bases left greater than right. No rhonchi or wheezes. Respirations are symmetrical and nonlabored. Oxygen saturation is 96% on room air. Achieving 500-750 mL on his incentive spirometry. Mediastinal and left pleural chest tubes remained to low continuous wall suction -20 cm H2O. No air leak is present. Draining thin serosanguineous drainage. - Cardiovascular Details: Regular rhythm and rate. S1 and S2 present, negative for S3, gallop or murmur. Sternum is stable. Bedside telemetry showing normal sinus rhythm heart rate 93. Right IJ Cordis in place with continuous CVP monitoring. Current CVP pressure is 12 mmHg. Trace edema to his bilateral lower extremities. Knee-high YANG hose and sequential compression devices in place to his bilateral lower extremities. Heart hugger is in place and he is demonstrating appropriate use. Atrial and ventricular epicardial pacemaker wires in place and grounded. - Gastrointestinal Gastrointestinal Comment(s): Abdomen is soft, nontender and nondistended. Hypoactive bowel sounds present in all 4 abdominal quadrants. No guarding or rigidity. No organomegaly. - Genitourinary Genitourinary Comment(s): Uribe catheter for accurate I&O. - Integumentary Integumentary Comment(s): Skin is warm and dry. No clubbing or cyanosis is present. No rash or abnormal pigmentation is present. Midline sternal incision is clean, dry and approximated. No drainage or redness is present. Fusion dressing clean, dry and intact to his midline sternal incision. Left arm radial artery harvest site clean, dry and approximated. No drainage or redness is present. Bilateral lower extremity EVH harvest sites clean, dry and approximated. No drainage or redness is present. - Neurologic Neurologic Comment(s): No focal neurological deficits today. Neurologic: Present: CNII-XII intact - Musculoskeletal Musculoskeletal: Present: gait normal, generalized weakness, strength equal bilaterally - Psychiatric Psychiatric: Present: A&O x's 3, appropriate affect, intact judgment & insight - Allied health notes Allied health notes reviewed: nursing - Labs CBC & Chem 7: 04/01/19 04:52 04/01/19 04:25 Labs: Abnormal Lab Results - Last 24 Hours (Table) 03/29/19 03/31/19 03/31/19 Range/Units 05:44 09:26 10:12 RBC (4.30-5.90) m/uL Hgb (13.0-17.5) gm/dL Hct (39.0-53.0) % RDW (11.5-15.5) % Plt Count (150-450) k/uL Lymphocytes # (1.0-4.8) k/uL Sodium (137-145) mmol/L Carbon Dioxide (22-30) mmol/L BUN (9-20) mg/dL Creatinine (0.66-1.25) mg/dL Glucose (74-99) mg/dL POC Glucose (mg/dL) 247 H 224 H (75-99) mg/dL Total Protein (6.3-8.2) g/dL Albumin (3.5-5.0) g/dL Crossmatch See Detail 03/31/19 03/31/19 03/31/19 Range/Units 11: 12:16 13:38 RBC (4.30-5.90) m/uL Hgb (13.0-17.5) gm/dL Hct (39.0-53.0) % RDW (11.5-15.5) % Plt Count (150-450) k/uL Lymphocytes # (1.0-4.8) k/uL Sodium (137-145) mmol/L Carbon Dioxide (22-30) mmol/L BUN (9-20) mg/dL Creatinine (0.66-1.25) mg/dL Glucose (74-99) mg/dL POC Glucose (mg/dL) 190 H 178 H 224 H (75-99) mg/dL Total Protein (6.3-8.2) g/dL Albumin (3.5-5.0) g/dL Crossmatch 03/31/19 03/31/19 03/31/19 Range/Units 15:05 16:03 16:57 RBC (4.30-5.90) m/uL Hgb (13.0-17.5) gm/dL Hct (39.0-53.0) % RDW (11.5-15.5) % Plt Count (150-450) k/uL Lymphocytes # (1.0-4.8) k/uL Sodium (137-145) mmol/L Carbon Dioxide (22-30) mmol/L BUN (9-20) mg/dL Creatinine (0.66-1.25) mg/dL Glucose (74-99) mg/dL POC Glucose (mg/dL) 211 H 209 H 176 H (75-99) mg/dL Total Protein (6.3-8.2) g/dL Albumin (3.5-5.0) g/dL Crossmatch 03/31/19 03/31/19 03/31/19 Range/Units 18:08 18:54 20:31 RBC (4.30-5.90) m/uL Hgb (13.0-17.5) gm/dL Hct (39.0-53.0) % RDW (11.5-15.5) % Plt Count (150-450) k/uL Lymphocytes # (1.0-4.8) k/uL Sodium (137-145) mmol/L Carbon Dioxide (22-30) mmol/L BUN (9-20) mg/dL Creatinine (0.66-1.25) mg/dL Glucose (74-99) mg/dL POC Glucose (mg/dL) 209 H 203 H 169 H (75-99) mg/dL Total Protein (6.3-8.2) g/dL Albumin (3.5-5.0) g/dL Crossmatch 03/31/19 03/31/19 03/31/19 Range/Units 21:31 22:21 23:38 RBC (4.30-5.90) m/uL Hgb (13.0-17.5) gm/dL Hct (39.0-53.0) % RDW (11.5-15.5) % Plt Count (150-450) k/uL Lymphocytes # (1.0-4.8) k/uL Sodium (137-145) mmol/L Carbon Dioxide (22-30) mmol/L BUN (9-20) mg/dL Creatinine (0.66-1.25) mg/dL Glucose (74-99) mg/dL POC Glucose (mg/dL) 144 H 142 H 130 H (75-99) mg/dL Total Protein (6.3-8.2) g/dL Albumin (3.5-5.0) g/dL Crossmatch 04/01/19 04/01/19 04/01/19 Range/Units 01:07 02:00 04:24 RBC (4.30-5.90) m/uL Hgb (13.0-17.5) gm/dL Hct (39.0-53.0) % RDW (11.5-15.5) % Plt Count (150-450) k/uL Lymphocytes # (1.0-4.8) k/uL Sodium (137-145) mmol/L Carbon Dioxide (22-30) mmol/L BUN (9-20) mg/dL Creatinine (0.66-1.25) mg/dL Glucose (74-99) mg/dL POC Glucose (mg/dL) 115 H 112 H 229 H (75-99) mg/dL Total Protein (6.3-8.2) g/dL Albumin (3.5-5.0) g/dL Crossmatch 04/01/19 04/01/19 04/01/19 Range/Units 04:25 04:25 04:52 RBC 2.21 L 2.24 L (4.30-5.90) m/uL Hgb 6.7 L* 6.7 L* (13.0-17.5) gm/dL Hct 19.4 L* 19.6 L* (39.0-53.0) % RDW 16.4 H 16.5 H (11.5-15.5) % Plt Count 63 L 65 L (150-450) k/uL Lymphocytes # 0.8 L (1.0-4.8) k/uL Sodium 135 L (137-145) mmol/L Carbon Dioxide 20 L (22-30) mmol/L BUN 34 H (9-20) mg/dL Creatinine 2.02 H (0.66-1.25) mg/dL Glucose 200 H (74-99) mg/dL POC Glucose (mg/dL) (75-99) mg/dL Total Protein 5.1 L (6.3-8.2) g/dL Albumin 3.3 L (3.5-5.0) g/dL Crossmatch 04/01/19 04/01/19 04/01/19 Range/Units 05:29 06:08 07:08 RBC (4.30-5.90) m/uL Hgb (13.0-17.5) gm/dL Hct (39.0-53.0) % RDW (11.5-15.5) % Plt Count (150-450) k/uL Lymphocytes # (1.0-4.8) k/uL Sodium (137-145) mmol/L Carbon Dioxide (22-30) mmol/L BUN (9-20) mg/dL Creatinine (0.66-1.25) mg/dL Glucose (74-99) mg/dL POC Glucose (mg/dL) 221 H 195 H 165 H (75-99) mg/dL Total Protein (6.3-8.2) g/dL Albumin (3.5-5.0) g/dL Crossmatch 04/01/19 Range/Units 08:08 RBC (4.30-5.90) m/uL Hgb (13.0-17.5) gm/dL Hct (39.0-53.0) % RDW (11.5-15.5) % Plt Count (150-450) k/uL Lymphocytes # (1.0-4.8) k/uL Sodium (137-145) mmol/L Carbon Dioxide (22-30) mmol/L BUN (9-20) mg/dL Creatinine (0.66-1.25) mg/dL Glucose (74-99) mg/dL POC Glucose (mg/dL) 183 H (75-99) mg/dL Total Protein (6.3-8.2) g/dL Albumin (3.5-5.0) g/dL Crossmatch - Imaging and Cardiology Chest x-ray: report reviewed, image reviewed Assessment and Plan Assessment: 1. Triple-vessel coronary artery disease, with left main disease, status post quadruple coronary artery bypass grafting surgery 2. History of coronary artery disease and myocardial infarction with multiple stents to the RCA and LAD 3. 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 Hypertension 5. Hyperlipidemia 6. Type 2 diabetes mellitus 7. Chronic kidney disease with baseline creatinine 1.7 8. Paroxysmal atrial fibrillation on chronic Eliquis for anticoagulation, status post bilateral pulmonary vein isolation using the bipolar radiofrequency energy by Articure and exclusion of the left atrial appendage using a 35 mm Atriclip 9. Chronic obstructive pulmonary disease 10. Obstructive sleep apnea with home CPAP use 11. Morbid obesity 12. Family history of heart disease Plan: 1. Continue aspirin, statin, Plavix and beta cely. Will increase his beta cely as tolerated. 2. Encourage incentive spirometry is 10 times every hour while awake. 3. Continue amiodarone 400 mg by mouth twice a day for atrial fibrillation prophylaxis. 4. Bronchodilators per pulmonology management. 5. Increase activity as tolerated, PT/OT/cardiac rehab following. 6. Continue Norvasc 2.5 mg by mouth daily for radial artery spasm prophylaxis. 7. Keep Uribe for another 24 hours for strict accurate intake and output. Continue Flomax 0.4 milligrams daily restarted. 8. GI/DVT prophylaxis 9. Insulin management per primary care service. 10. Pain control with current medication regimen. Avoid Toradol due to his h istory of chronic kidney disease. 11. Remove right IJ Cordis in place to continue CVP monitoring. 12. Avoid nephrotoxic agents due to his chronic kidney disease. 13. Continue to monitor daily labs and chest x-rays. 14. We will remove his mediastinal and left pleural chest tubes. Ground and ep icardial pacemaker wires. 15. More recommendations to follow based on patient's clinical course. Mediastinal and left pleural chest tubes removed without incident. 4 x 4 gauze dressing, Vaseline impregnated gauze to cover and secured with tape. Time with Patient: Greater than 30
[2019-04-01 09:25] LABS: Glucose,Whole Blood 176 mg/dL (75-99)
[2019-04-01 10:32] LABS: Glucose,Whole Blood 124 mg/dL (75-99)
[2019-04-01] MEDS: INSULIN REGULAR 100 UNIT in SODIUM CHLORIDE 0.9% 100 ML IV SCH ×2 (11:24→21:39)
[2019-04-01 11:31] LABS: Glucose,Whole Blood 111 mg/dL (75-99)
[2019-04-01 12:03] LABS: Glucose,Whole Blood 158 mg/dL (75-99)
--- NOTE | 2019-04-01 12:31 | P.ARTDOP ---
Arterial Doppler LOWER EXTREMITY ARTERIAL DOPPLER: DATE OF SERVICE: 03/25/2019 Reason for study: Preop CABG. Doppler waveforms: Multiphasic bilaterally throughout. Pulse volume recording: []. Pressure gradients: None. Ankle-brachial indices: Greater than 1 bilaterally. Toe pressures: on the right, [] on the left Impression: Normal study.
--- NOTE | 2019-04-01 12:37 | P.VSCSTY ---
Greater Saphenous Vein Mapping This is bilateral lower extremity greater saphenous vein mapping. Date of service: 03/24/2019 Vein quality and ultrasound appearance: No endoluminal thrombus or wall changes are seen. Vein size groin right : 7.8 x 7.4 groin left: 8.2 x 6.6 High thigh right: 4.7 x 3.4 high thigh left: 5.4 x 4.0 Mid thigh right: 4.7 x 3.6 mid thigh left: 5.4 x 4.0 Above-knee right: 3.7 x 2.9 above- knee left: 4.5 x 3.0 Below knee right: 3.5 x 2.8 below-knee left: 4.0 x 3.1 Mid calf right: 3.0 x 1.6 mid calf left: 3.2 x 2.4 Ankle right: 4.3 x 3.2 ankle left: 4.2 x 2.3 Impression: Usable bilateral greater saphenous vein.
[2019-04-01] MEDS: LACTATED RINGERS 1,000 ML IV SCH (12:42)
[2019-04-01 12:47] LABS: Anisocytosis Slight; Basophils % (A) 0 %; Eosinophils % (A) 0 %; HCT 23.3 % (39.0-53.0); HGB 7.8 gm/dL (13.0-17.5); Lymphocytes # (A) 1.1 k/uL (1.0-4.8); Lymphocytes % (A) 10 %; MCH 29.5 pg (25.0-35.0); MCHC 33.5 g/dL (31.0-37.0); Mean Platelet Volume 8.1; Monocytes # (A) 1.1 k/uL (0-1.0); Monocytes % (A) 10 %; Neutrophils # (A) 8.5 k/uL (1.3-7.7); Neutrophils % (A) 78 %; RBC 2.65 m/uL (4.30-5.90); RDW 16.3 % (11.5-15.5); WBC 10.9 k/uL (3.8-10.6)
[2019-04-01 12:49] LABS: Platelet Count 101 k/uL (150-450)
[2019-04-01 13:18] LABS: Glucose,Whole Blood 242 mg/dL (75-99)
--- NOTE | 2019-04-01 13:35 | CDI ---
Documentation Clarification Form Date: 04/01/2019 From: Mandy Gonzalez RN, CCDS Admit Date: 03/26/2019 8:16:00 AM Patient Name: Rafal Muro Visit Number: [id number] Discharge Date: ATTENTION: The Clinical Documentation Specialists (CDI) and [facility] Coding Staff appreciate your assistance in clarifying documentation. Please respond to the clarification below the line at the bottom and electronically sign. The CDI & [facility] Coding staff will review the response and follow-up if needed. Please note: Queries are made part of the Legal Health Record. If you have any questions, please contact the author of this message via ITS. Dr. Erasmo Guevara Patient was admitted with history of Chronic kidney disease and further clarification is needed. History/Risk Factors: Type 2 Diabetes, hypertension, prior Myocardial Infarction, Multivessel stenting, Chronic Kidney disease with creatinine range 2.2 Clinical Indicators: 73 year old male who present with significant symptoms of angina, and was recommended coronary angiography. Per the patient history chronic kidney disease is documented. Present on 03/25/19: BUN 33 CR 1.71 GFR 39 03/27/19 BUN 25, CR 1.63 GFR 41 03/31/19 BUN 26, CR 1.74 GFR 38 Patients Baseline: Creatinine 2.2 Treatment: IVF Monitor renal function Avoid nephrotoxic agents IV Fluids In order to capture the severity of condition, please clarify if the condition signifies: CKD Stage 1 (GFR > 90) CKD Stage 2 (GFR 60-89) CKD Stage 3 (GFR 30-59) CKD Stage 4 (GFR 15-29) CKD Stage 5 (GFR <15) Other, please specify Unable to determine (Last Revision: August 2017) see elvie MESA
--- NOTE | 2019-04-01 14:20 | PN ---
PROGRESS NOTE Rafal is a 73-year-old gentleman who is admitted to hospital with multivessel coronary artery disease and underwent bypass surgery today. He is postoperative day #2. He is ambulating with help, still in quite a bit of pain and is fatigued and tired. Remains in sinus rhythm on oral amiodarone. Hemodynamically stable, but developed anemia and required blood transfusion. His BUN is 34 and creatinine is 2. On exam, comfortable at rest. Vital signs are stable. Chest exam reveals diminished air entry at the bases. Heart exam reveals first and second heart sounds. No gallop. Exam of extremities reveals mild edema. Peripheral pulses are palpable. LABS: Show a potassium of 4.1, BUN is 34, creatinine is 2. Hemoglobin was low and had been transfused. ASSESSMENT: 1. Multivessel coronary artery disease, status post coronary artery bypass grafting. 2. Anemia, status post blood transfusion. 3. Acute exacerbation of chronic renal failure. PLAN: Will continue the patient on aspirin, Cordarone, Lipitor Plavix and Lopressor along with amiodarone and Norvasc. MMODL / IJN: [id number] /
[2019-04-01 14:25] LABS: Glucose,Whole Blood 226 mg/dL (75-99)
--- NOTE | 2019-04-01 15:11 | P.PN ---
Subjective Progress Note Date: 03/30/19 Principal diagnosis: Triple-vessel coronary disease would be going for CABG: Non-ST CO, type 2 diabetes, A. fib, rheumatoid arthritis, obstructive sleep apnea chronic kidney disease. This is a 73-year-old male patient of Dr. Guevara with past medical history for coronary artery disease, paroxysmal atrial fibrillation on eliquis, diabetes mellitus type II insulin requiring with diabetic neuropathy, chronic kidney disease, kidney stones, COPD, obstructive sleep apnea with CPAP, hyperlipidemia, hypertension, and rheumatoid arthritis and cirrhotic arthritis, gout, benign prostatic hypertrophy. His primary care physician is Dr. Guevara he follows with Dr. 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 He had a heart catheterization done in 2005 that showed moderate disease involving the LAD and diagonal was mild involvement patient had some irregular lesion of the circumflex. He was seen at [facility] for chest pain and non-ST elevated CO 2010. At that time, his heart catheterization revealed an acutely occluded right coronary artery, significant disease in the moderate size third obtuse marginal branch with moderate disease in the LAD and left circumflex. Ejection fraction was 3540 percent. He underwent successful stenting of the distal RCA. Later i n his room, patient developed ventricular fibrillation and was quickly resuscitated and underwent heart catheterization and underwent angioplasty and stenting of the PLV branch of the right coronary artery. On 09/14/2010, patient underwent a single chamber cardioverter defibrillator implantation. His echocardiogram revealed mild pulmonary hypertension, ejection fraction 40% at that time. In 2014 he underwent heart catheterization finding 45% proximal right coronary artery stenosis and significant mid LAD lesion which underwent PTCA and stenting of the mid LAD. Patient's also gives history of a septic knee joint needing washout which was done at [facility] at that time patient developed atrial fibrillation in the postop period. He also had a run of V. tach for which his AICD fired. Ever since that episode of sepsis, patient has had chronic kidney disease. Regarding his diabetes, he follows with Dr. Yoanna Mccormick. He is currently on Trulicity 1.5mg weekly, Lantus 56 units in the morning and recently changed to 18 units of NovoLog with meals. His last hemoglobin A1c was 7.4 in December at the [place] clinic. Regarding rheumatoid arthritis and psoriatic arthritis, patient follows with Dr. Shelton. In the past he has been on methotrexate, Enbrel and Humira. He was recently on Ilaris but this was stopped when he started having cardiac problems as there is concern for arrhythmia. He contacted his backup operator and she had recommended stopping it. The patient have follow-up in the cardiology office in December of this year and underwent a Lexiscan stress test that did not demonstrate any ischemia. Over the past 3-4 weeks she has had intermittent substernal chest pain with radiation to his arms. He was recommended for heart catheterization which was completed yesterday that found proximal LAD stenosis 60%, mid LAD stenosis 30%, circumflex stenosis 90% and RCA stenosis 60. Cardiothoracic surgery was consulted for recommendations regarding CABG versus stenting. Carotid ultrasound revealed mild plaque bilateral bifurcations but no significant stenosis. Chest x-ray reveals no acute cardiopulmonary process. Underlying COPD. patient has been evaluated by cardiothoracic surgery. Plan for tomorrow is a repeat heart catheterization to further evaluate LAD. 03/26: Patient underwent heart catheterization today with Dr. SANAM Hinds finding significant lesion in the proximal LAD and area of 2.6 mm2 also within the left main and heavy circumferential desiccation lesion in the area of 3.2 mm2. Both were deemed significant and requires bypass surgery. The patient is seen today while in the recovery area. He denies having any chest pain or shortness of breath at this time. Blood sugars will need to be well-controlled and we will make arrangements for Levemir to be 30 units in the morning and 40 at bedtime. 03/27: The patient complains of nasal congestion since he had his procedure yesterday. We will add Flonase. Regarding blood sugars nighttime blood sugar remains quite elevated and we will make additional changes to his insulins by adding NovoLog scheduled 3 units with each meal and increase nighttime Levemir to 45 units. He is scheduled for open heart on Saturday. 03/28: Patient is resting comfortably in bed without any acute distress. Patient has no complaints at this time. Patient did not receive his Levemir last night due to his blood sugar being 112. Patient's blood sugar was elevated in 150s this morning due to missing the dose of Levemir. Patient is scheduled for open heart surgery on Saturday. 03/29: Patient is sitting up in bed with at the bedside. Patient is in no acute distress. Patient has no complaints or concerns at this time. He slept well last night. Patient was given his Levemir last night his blood sugar this morning was 120. Patient is waiting to have open heart surgery on Saturday. Questions were answered. 03/30: Patient will be going for open heart surgery today we will be back in ICU on the respirator and insulin drip Objective - Vital Signs Vital signs: Vital Signs Temp 97.7 F 03/31/19 20:00 Pulse 101 H 03/31/19 21:40 Resp 16 03/31/19 21:00 BP 112/57 03/31/19 20:00 Pulse Ox 97 03/31/19 21:30 Intake & Output 03/31/19 03/31/19 04/01/19 06:59 18:59 06:59 Intake Total 9707.920 1234.939 106.894 Output Total 1071 705 240 Balance 435.529 9338.939 -133.106 Weight 104.6 kg 114.6 kg Intake: IV 1658.5 366 78 ACETAMINOPHEN IV (For NPO 100 ) 1,000 mg In Empty Bag 1 bag @ 400 mls/hr IVPB Q6HR ALBINO Rx#:[id number] Albumin Human 25% 50 ml 500 In Empty Bag 1 bag @ 100 mls/hr IVPB ONCE ONE Rx#: [id number] Cardiac Output 240 10 Lactated Ringers 1,000 ml 650 290 60 @ 20 mls/hr IV .Q24H ALBINO Rx#:[id number] Nitroglycerin-D5w Pmx 50 1.5 mg In Dextrose/Water 1 250ml.bag @ 5 MCG/MIN 1.5 mls/hr IV .Q24H ALBINO Rx#: [id number] Pressure Bag 117 66 18 ceFAZolin 2 gm In Sodium 50 Chloride 0.9% 30 ml @ 60 mls/hr IVPB ONCE ONE Rx#: [id number] Intake, IV Titration 83.611 230.939 28.894 Amount Insulin Regular 100 unit 45.955 105.664 28.894 In Sodium Chloride 0.9% 100 ml @ Per Protocol IV .Q0M ALBINO Rx#:[id number] Nitroglycerin-D5w Pmx 50 25.275 mg In Dextrose/Water 1 250ml.bag @ 5 MCG/MIN 1.5 mls/hr IV .Q24H ALBINO Rx#: [id number] Propofol 1,000 mg In 37.656 Empty Bag 1 bag @ Titrate IV .Q0M PRN Rx#: [id number] ceFAZolin 2 gm In Sodium 100 Chloride 0.9% 50 ml @ 100 mls/hr IVPB Q8HR ALBINO Rx# :[id number] Oral 1600 Output: Chest Tube Drainage 264 200 60 Left Lateral Chest 62 80 20 Mediastinal 202 120 40 Drainage 25 Left Calf 20 Left Wrist 5 Urine 782 505 180 Other: Voiding Method Indwelling Catheter # Bowel Movements 1 ABP, PAP, CO, CI - Last Documented Arterial Blood Pressure 120/48 Pulmonary Artery Pressure 28/11 Cardiac Output 7.4 Cardiac Index 3.4 - Exam CONSTITUTIONAL: Overweight no acute respiratory distress. EYES: No icterus sclerae, no conjunctivitis. EARS, NOSE, MOUTH, THROAT, and FACE: No sore throat, lymphadenopathy, carotid bruits or deformity. RESPIRATORY: Mild shortness of breath no cough wheezes. CARDIOVASCULAR: Positive chest pain and angina with mild shortness of breath positive PND and orthopnea. GASTROINTESTINAL: No Abd pain, Nausea or vomiting, no Diarrhea or constipation, No GI Bleed, no distention or masses. GENITOURINARY: Negative for Hematuria or UTI, no kidney stones. INTEGUMENT/BREAST: Negative for any muscular injury with mild osteoarthritis.. HEMATOLOGIC/LYMPHATIC: Negative for bleed or purpura. MUSCULOSKELTAL: Multiple muscle and tendon involvement generalized arthralgia and myalgia. NEURLOGICAL: No LOC, Sz or syncope, blurred vision dizziness or abnormality.. BEHAVIORAL/PSYCH: Negative. ENDOCRINE: Negative. General Appearance: Alert, cooperative, no distress, appears stated age. Neck HEENT: Supple, no lymphadenopathy, no thyroid enlargement, no carotid bruits. Lungs: Decrease breath some bilateral fine rhonchi no crackles plasma extract wheezes. Chest Wall: Decrease expansion with deep inspiration no tenderness and no deformity was found on exam, no costochondral pain or discomfort. Heart: Irregular rate and rhythm, S1, S2 normal, no murmur, rub or gallop. Back: Symmetric, no curvature, ROM normal, no CVA tenderness. Abdomen: Soft, non-tender, bowel sounds active all four quadrants, no masses, no organomegaly. Extremities: Trace edema all multiple joint involvement with RA.. Pulses: 2+ and symmetric. Skin: Skin color, texture, tugor normal, no rashes or lesions. Neurologic: Alert oriented x3 cranial nerves II through XII intact, no motor deficit, no abnormal balance or gait. - Labs CBC & Chem 7: 04/01/19 12:03 04/01/19 04:25 Labs: Abnormal Lab Results - Last 24 Hours (Table) 03/29/19 03/30/19 03/30/19 Range/Units 05:44 22:00 22:26 RBC 2.70 L (4.30-5.90) m/uL Hgb 8.3 L (13.0-17.5) gm/dL Hct 23.8 L (39.0-53.0) % RDW 15.8 H (11.5-15.5) % Plt Count 80 L (150-450) k/uL Lymphocytes # 0.5 L (1.0-4.8) k/uL Chloride (98-107) mmol/L BUN (9-20) mg/dL Creatinine (0.66-1.25) mg/dL Glucose (74-99) mg/dL POC Glucose (mg/dL) 178 H (75-99) mg/dL Magnesium (1.6-2.3) mg/dL AST (17-59) U/L Alkaline Phosphatase (38-126) U/L Total Protein (6.3-8.2) g/dL Albumin (3.5-5.0) g/dL Crossmatch See Detail 03/30/19 03/31/19 03/31/19 Range/Units 23:39 00:44 01:36 RBC (4.30-5.90) m/uL Hgb (13.0-17.5) gm/dL Hct (39.0-53.0) % RDW (11.5-15.5) % Plt Count (150-450) k/uL Lymphocytes # (1.0-4.8) k/uL Chloride (98-107) mmol/L BUN (9-20) mg/dL Creatinine (0.66-1.25) mg/dL Glucose (74-99) mg/dL POC Glucose (mg/dL) 176 H 162 H 155 H (75-99) mg/dL Magnesium (1.6-2.3) mg/dL AST (17-59) U/L Alkaline Phosphatase (38-126) U/L Total Protein (6.3-8.2) g/dL Albumin (3.5-5.0) g/dL Crossmatch 03/31/19 03/31/19 03/31/19 Range/Units 03:13 04:05 04:05 RBC 2.67 L (4.30-5.90) m/uL Hgb 7.7 L (13.0-17.5) gm/dL Hct 23.4 L (39.0-53.0) % RDW 15.8 H (11.5-15.5) % Plt Count 76 L (150-450) k/uL Lymphocytes # 0.4 L (1.0-4.8) k/uL Chloride 109 H (98-107) mmol/L BUN 26 H (9-20) mg/dL Creatinine 1.74 H (0.66-1.25) mg/dL Glucose 142 H (74-99) mg/dL POC Glucose (mg/dL) 163 H (75-99) mg/dL Magnesium 2.4 H (1.6-2.3) mg/dL AST 65 H (17-59) U/L Alkaline Phosphatase 36 L (38-126) U/L Total Protein 4.9 L (6.3-8.2) g/dL Albumin 3.1 L (3.5-5.0) g/dL Crossmatch 03/31/19 03/31/19 03/31/19 Range/Units 04:06 05:28 06:23 RBC (4.30-5.90) m/uL Hgb (13.0-17.5) gm/dL Hct (39.0-53.0) % RDW (11.5-15.5) % Plt Count (150-450) k/uL Lymphocytes # (1.0-4.8) k/uL Chloride (98-107) mmol/L BUN (9-20) mg/dL Creatinine (0.66-1.25) mg/dL Glucose (74-99) mg/dL POC Glucose (mg/dL) 156 H 131 H 143 H (75-99) mg/dL Magnesium (1.6-2.3) mg/dL AST (17-59) U/L Alkaline Phosphatase (38-126) U/L Total Protein (6.3-8.2) g/dL Albumin (3.5-5.0) g/dL Crossmatch 03/31/19 03/31/19 03/31/19 Range/Units 07:26 08:20 09:26 RBC (4.30-5.90) m/uL Hgb (13.0-17.5) gm/dL Hct (39.0-53.0) % RDW (11.5-15.5) % Plt Count (150-450) k/uL Lymphocytes # (1.0-4.8) k/uL Chloride (98-107) mmol/L BUN (9-20) mg/dL Creatinine (0.66-1.25) mg/dL Glucose (74-99) mg/dL POC Glucose (mg/dL) 140 H 268 H 247 H (75-99) mg/dL Magnesium (1.6-2.3) mg/dL AST (17-59) U/L Alkaline Phosphatase (38-126) U/L Total Protein (6.3-8.2) g/dL Albumin (3.5-5.0) g/dL Crossmatch 03/31/19 03/31/19 03/31/19 Range/Units 10:12 11:22 12:16 RBC (4.30-5.90) m/uL Hgb (13.0-17.5) gm/dL Hct (39.0-53.0) % RDW (11.5-15.5) % Plt Count (150-450) k/uL Lymphocytes # (1.0-4.8) k/uL Chloride (98-107) mmol/L BUN (9-20) mg/dL Creatinine (0.66-1.25) mg/dL Glucose (74-99) mg/dL POC Glucose (mg/dL) 224 H 190 H 178 H (75-99) mg/dL Magnesium (1.6-2.3) mg/dL AST (17-59) U/L Alkaline Phosphatase (38-126) U/L Total Protein (6.3-8.2) g/dL Albumin (3.5-5.0) g/dL Crossmatch 03/31/19 03/31/19 03/31/19 Range/Units 13:38 15:05 16:03 RBC (4.30-5.90) m/uL Hgb (13.0-17.5) gm/dL Hct (39.0-53.0) % RDW (11.5-15.5) % Plt Count (150-450) k/uL Lymphocytes # (1.0-4.8) k/uL Chloride (98-107) mmol/L BUN (9-20) mg/dL Creatinine (0.66-1.25) mg/dL Glucose (74-99) mg/dL POC Glucose (mg/dL) 224 H 211 H 209 H (75-99) mg/dL Magnesium (1.6-2.3) mg/dL AST (17-59) U/L Alkaline Phosphatase (38-126) U/L Total Protein (6.3-8.2) g/dL Albumin (3.5-5.0) g/dL Crossmatch 03/31/19 03/31/19 03/31/19 Range/Units 16:57 18:08 18:54 RBC (4.30-5.90) m/uL Hgb (13.0-17.5) gm/dL Hct (39.0-53.0) % RDW (11.5-15.5) % Plt Count (150-450) k/uL Lymphocytes # (1.0-4.8) k/uL Chloride (98-107) mmol/L BUN (9-20) mg/dL Creatinine (0.66-1.25) mg/dL Glucose (74-99) mg/dL POC Glucose (mg/dL) 176 H 209 H 203 H (75-99) mg/dL Magnesium (1.6-2.3) mg/dL AST (17-59) U/L Alkaline Phosphatase (38-126) U/L Total Protein (6.3-8.2) g/dL Albumin (3.5-5.0) g/dL Crossmatch 03/31/19 03/31/19 Range/Units 20:31 21:31 RBC (4.30-5.90) m/uL Hgb (13.0-17.5) gm/dL Hct (39.0-53.0) % RDW (11.5-15.5) % Plt Count (150-450) k/uL Lymphocytes # (1.0-4.8) k/uL Chloride (98-107) mmol/L BUN (9-20) mg/dL Creatinine (0.66-1.25) mg/dL Glucose (74-99) mg/dL POC Glucose (mg/dL) 169 H 144 H (75-99) mg/dL Magnesium (1.6-2.3) mg/dL AST (17-59) U/L Alkaline Phosphatase (38-126) U/L Total Protein (6.3-8.2) g/dL Albumin (3.5-5.0) g/dL Crossmatch Assessment and Plan Plan: 1. Triple-vessel coronary artery disease: Going for bypass surgery today. 2. History of non-ST elevated myocardial infarction, coronary artery disease and multiple stents. 3. Diabetes mellitus type 2 with end organ damage: Patient is doing well on insulin will be on insulin drip after surgery for the first 48 hours and then back on insulin bolus and before meals meals. 4. Paroxysmal atrial fibrillation. Will be on heparin drip after surgery for the first 48 hours. 5. Hypertension. Continue Lopressor, losartan 50 mg daily. 6. Hyperlipidemia. Continue atorvastatin 40 mg daily 7. Chronic kidney disease. Monitor renal function and avoid nephrotoxic agents. 8. Obstructive sleep apnea with home CPAP. 9. COPD, stable without exacerbation. 10. History of ventricular tachycardia and cardiomyopathy status post AICD, stable 11. Gastroesophageal reflux disease. Continue Protonix
[2019-04-01 15:13] LABS: Glucose,Whole Blood 209 mg/dL (75-99)
--- NOTE | 2019-04-01 15:14 | P.PN ---
Subjective Progress Note Date: 03/31/19 Principal diagnosis: Triple-vessel coronary disease would be going for CABG: Non-ST MO, type 2 diabetes, A. fib, rheumatoid arthritis, obstructive sleep apnea chronic kidney disease. This is a 73-year-old male patient of Dr. Guevara with past medical history for coronary artery disease, paroxysmal atrial fibrillation on eliquis, diabetes mellitus type II insulin requiring with diabetic neuropathy, chronic kidney disease, kidney stones, COPD, obstructive sleep apnea with CPAP, hyperlipidemia, hypertension, and rheumatoid arthritis and cirrhotic arthritis, gout, benign prostatic hypertrophy. His primary care physician is Dr. Guevara he follows with Dr. 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 He had a heart catheterization done in 2005 that showed moderate disease involving the LAD and diagonal was mild involvement patient had some irregular lesion of the circumflex. He was seen at [facility] for chest pain and non-ST elevated MO 2010. At that time, his heart catheterization revealed an acutely occluded right coronary artery, significant disease in the moderate size third obtuse marginal branch with moderate disease in the LAD and left circumflex. Ejection fraction was 3540 percent. He underwent successful stenting of the distal RCA. Later i n his room, patient developed ventricular fibrillation and was quickly resuscitated and underwent heart catheterization and underwent angioplasty and stenting of the PLV branch of the right coronary artery. On 09/14/2010, patient underwent a single chamber cardioverter defibrillator implantation. His echocardiogram revealed mild pulmonary hypertension, ejection fraction 40% at that time. In 2014 he underwent heart catheterization finding 45% proximal right coronary artery stenosis and significant mid LAD lesion which underwent PTCA and stenting of the mid LAD. Patient's also gives history of a septic knee joint needing washout which was done at [facility] at that time patient developed atrial fibrillation in the postop period. He also had a run of V. tach for which his AICD fired. Ever since that episode of sepsis, patient has had chronic kidney disease. Regarding his diabetes, he follows with Dr. Yoanna Mccormick. He is currently on Trulicity 1.5mg weekly, Lantus 56 units in the morning and recently changed to 18 units of NovoLog with meals. His last hemoglobin A1c was 7.4 in December at the [facility]. Regarding rheumatoid arthritis and psoriatic arthritis, patient follows with Dr. Shelton. In the past he has been on methotrexate, Enbrel and Humira. He was recently on Ilaris but this was stopped when he started having cardiac problems as there is concern for arrhythmia. He contacted his stone lathe operator and she had recommended stopping it. The patient have follow-up in the cardiology office in December of this year and underwent a Lexiscan stress test that did not demonstrate any ischemia. Over the past 3-4 weeks she has had intermittent substernal chest pain with radiation to his arms. He was recommended for heart catheterization which was completed yesterday that found proximal LAD stenosis 60%, mid LAD stenosis 30%, circumflex stenosis 90% and RCA stenosis 60. Cardiothoracic surgery was consulted for recommendations regarding CABG versus stenting. Carotid ultrasound revealed mild plaque bilateral bifurcations but no significant stenosis. Chest x-ray reveals no acute cardiopulmonary process. Underlying COPD. patient has been evaluated by cardiothoracic surgery. Plan for tomorrow is a repeat heart catheterization to further evaluate LAD. 03/26: Patient underwent heart catheterization today with Dr. SANAM Hinds finding significant lesion in the proximal LAD and area of 2.6 mm2 also within the left main and heavy circumferential desiccation lesion in the area of 3.2 mm2. Both were deemed significant and requires bypass surgery. The patient is seen today while in the recovery area. He denies having any chest pain or shortness of breath at this time. Blood sugars will need to be well-controlled and we will make arrangements for Levemir to be 30 units in the morning and 40 at bedtime. 03/27: The patient complains of nasal congestion since he had his procedure yesterday. We will add Flonase. Regarding blood sugars nighttime blood sugar remains quite elevated and we will make additional changes to his insulins by adding NovoLog scheduled 3 units with each meal and increase nighttime Levemir to 45 units. He is scheduled for open heart on Saturday. 03/28: Patient is resting comfortably in bed without any acute distress. Patient has no complaints at this time. Patient did not receive his Levemir last night due to his blood sugar being 112. Patient's blood sugar was elevated in 150s this morning due to missing the dose of Levemir. Patient is scheduled for open heart surgery on Saturday. 03/29: Patient is sitting up in bed with at the bedside. Patient is in no acute distress. Patient has no complaints or concerns at this time. He slept well last night. Patient was given his Levemir last night his blood sugar this morning was 120. Patient is waiting to have open heart surgery on Saturday. Questions were answered. 03/30: Patient will be going for open heart surgery today we will be back in ICU on the respirator and insulin drip. 03/31: Patient is off mechanical ventilation sitting in his chair less pain and discomfort still have chest tube complaining of mild chest pain from his surgery but no other major complaint. Objective - Vital Signs Vital signs: Vital Signs Temp 97.7 F 03/31/19 20:00 Pulse 101 H 03/31/19 21:40 Resp 16 03/31/19 21:00 BP 112/57 03/31/19 20:00 Pulse Ox 97 03/31/19 21:30 Intake & Output 03/31/19 03/31/19 04/01/19 06:59 18:59 06:59 Intake Total 9326.381 0828.939 106.894 Output Total 1071 705 240 Balance 624.506 5254.939 -133.106 Weight 104.6 kg 114.6 kg Intake: IV 1658.5 366 78 ACETAMINOPHEN IV (For NPO 100 ) 1,000 mg In Empty Bag 1 bag @ 400 mls/hr IVPB Q6HR [facility] Rx#:[id number] Albumin Human 25% 50 ml 500 In Empty Bag 1 bag @ 100 mls/hr IVPB ONCE ONE Rx#: [id number] Cardiac Output 240 10 Lactated Ringers 1,000 ml 650 290 60 @ 20 mls/hr IV .Q24H [facility] Rx#:[id number] Nitroglycerin-D5w Pmx 50 1.5 mg In Dextrose/Water 1 250ml.bag @ 5 MCG/MIN 1.5 mls/hr IV .Q24H [facility] Rx#: [id number] Pressure Bag 117 66 18 ceFAZolin 2 gm In Sodium 50 Chloride 0.9% 30 ml @ 60 mls/hr IVPB ONCE ONE Rx#: [id number] Intake, IV Titration 83.611 230.939 28.894 Amount Insulin Regular 100 unit 45.955 105.664 28.894 In Sodium Chloride 0.9% 100 ml @ Per Protocol IV .Q0M [facility] Rx#:[id number] Nitroglycerin-D5w Pmx 50 25.275 mg In Dextrose/Water 1 250ml.bag @ 5 MCG/MIN 1.5 mls/hr IV .Q24H [facility] Rx#: [id number] Propofol 1,000 mg In 37.656 Empty Bag 1 bag @ Titrate IV .Q0M PRN Rx#: [id number] ceFAZolin 2 gm In Sodium 100 Chloride 0.9% 50 ml @ 100 mls/hr IVPB Q8HR [facility] Rx# :[id number] Oral 1600 Output: Chest Tube Drainage 264 200 60 Left Lateral Chest 62 80 20 Mediastinal 202 120 40 Drainage 25 Left Calf 20 Left Wrist 5 Urine 782 505 180 Other: Voiding Method Indwelling Catheter # Bowel Movements 1 ABP, PAP, CO, CI - Last Documented Arterial Blood Pressure 120/48 Pulmonary Artery Pressure 28/11 Cardiac Output 7.4 Cardiac Index 3.4 - Exam CONSTITUTIONAL: Overweight no acute respiratory distress. EYES: No icterus sclerae, no conjunctivitis. EARS, NOSE, MOUTH, THROAT, and FACE: No sore throat, lymphadenopathy, carotid bruits or deformity. RESPIRATORY: Mild shortness of breath no cough wheezes. CARDIOVASCULAR: Positive chest pain and angina with mild shortness of breath positive PND and orthopnea. GASTROINTESTINAL: No Abd pain, Nausea or vomiting, no Diarrhea or constipation, No GI Bleed, no distention or masses. GENITOURINARY: Negative for Hematuria or UTI, no kidney stones. INTEGUMENT/BREAST: Negative for any muscular injury with mild osteoarthritis.. HEMATOLOGIC/LYMPHATIC: Negative for bleed or purpura. MUSCULOSKELTAL: Multiple muscle and tendon involvement generalized arthralgia and myalgia. NEURLOGICAL: No LOC, Sz or syncope, blurred vision dizziness or abnormality.. BEHAVIORAL/PSYCH: Negative. ENDOCRINE: Negative. General Appearance: Alert, cooperative, no distress, appears stated age. Was extubation still have multiple chest tube and Beasley-Diana catheter in the right side Neck HEENT: Supple, no lymphadenopathy, no thyroid enlargement, no carotid bruits. Lungs: Decrease breath some bilateral fine rhonchi no crackles plasma extract wheezes. Chest Wall: Incision from his surgery with 2 chest tube still on. Heart: Irregular rate and rhythm, S1, S2 normal, no murmur, rub or gallop. Back: Symmetric, no curvature, ROM normal, no CVA tenderness. Abdomen: Soft, non-tender, bowel sounds active all four quadrants, no masses, no organomegaly. Extremities: Trace edema all multiple joint involvement with RA.. Pulses: 2+ and symmetric. Skin: Skin color, texture, tugor normal, no rashes or lesions. Neurologic: Alert oriented x3 cranial nerves II through XII intact, no motor deficit, no abnormal balance or gait. - Labs CBC & Chem 7: 04/01/19 12:03 04/01/19 04:25 Labs: Abnormal Lab Results - Last 24 Hours (Table) 03/29/19 03/30/19 03/30/19 Range/Units 05:44 22:00 22:26 RBC 2.70 L (4.30-5.90) m/uL Hgb 8.3 L (13.0-17.5) gm/dL Hct 23.8 L (39.0-53.0) % RDW 15.8 H (11.5-15.5) % Plt Count 80 L (150-450) k/uL Lymphocytes # 0.5 L (1.0-4.8) k/uL Chloride (98-107) mmol/L BUN (9-20) mg/dL Creatinine (0.66-1.25) mg/dL Glucose (74-99) mg/dL POC Glucose (mg/dL) 178 H (75-99) mg/dL Magnesium (1.6-2.3) mg/dL AST (17-59) U/L Alkaline Phosphatase (38-126) U/L Total Protein (6.3-8.2) g/dL Albumin (3.5-5.0) g/dL Crossmatch See Detail 03/30/19 03/31/19 03/31/19 Range/Units 23:39 00:44 01:36 RBC (4.30-5.90) m/uL Hgb (13.0-17.5) gm/dL Hct (39.0-53.0) % RDW (11.5-15.5) % Plt Count (150-450) k/uL Lymphocytes # (1.0-4.8) k/uL Chloride (98-107) mmol/L BUN (9-20) mg/dL Creatinine (0.66-1.25) mg/dL Glucose (74-99) mg/dL POC Glucose (mg/dL) 176 H 162 H 155 H (75-99) mg/dL Magnesium (1.6-2.3) mg/dL AST (17-59) U/L Alkaline Phosphatase (38-126) U/L Total Protein (6.3-8.2) g/dL Albumin (3.5-5.0) g/dL Crossmatch 03/31/19 03/31/19 03/31/19 Range/Units 03:13 04:05 04:05 RBC 2.67 L (4.30-5.90) m/uL Hgb 7.7 L (13.0-17.5) gm/dL Hct 23.4 L (39.0-53.0) % RDW 15.8 H (11.5-15.5) % Plt Count 76 L (150-450) k/uL Lymphocytes # 0.4 L (1.0-4.8) k/uL Chloride 109 H (98-107) mmol/L BUN 26 H (9-20) mg/dL Creatinine 1.74 H (0.66-1.25) mg/dL Glucose 142 H (74-99) mg/dL POC Glucose (mg/dL) 163 H (75-99) mg/dL Magnesium 2.4 H (1.6-2.3) mg/dL AST 65 H (17-59) U/L Alkaline Phosphatase 36 L (38-126) U/L Total Protein 4.9 L (6.3-8.2) g/dL Albumin 3.1 L (3.5-5.0) g/dL Crossmatch 03/31/19 03/31/19 03/31/19 Range/Units 04:06 05:28 06:23 RBC (4.30-5.90) m/uL Hgb (13.0-17.5) gm/dL Hct (39.0-53.0) % RDW (11.5-15.5) % Plt Count (150-450) k/uL Lymphocytes # (1.0-4.8) k/uL Chloride (98-107) mmol/L BUN (9-20) mg/dL Creatinine (0.66-1.25) mg/dL Glucose (74-99) mg/dL POC Glucose (mg/dL) 156 H 131 H 143 H (75-99) mg/dL Magnesium (1.6-2.3) mg/dL AST (17-59) U/L Alkaline Phosphatase (38-126) U/L Total Protein (6.3-8.2) g/dL Albumin (3.5-5.0) g/dL Crossmatch 03/31/19 03/31/19 03/31/19 Range/Units 07:26 08:20 09:26 RBC (4.30-5.90) m/uL Hgb (13.0-17.5) gm/dL Hct (39.0-53.0) % RDW (11.5-15.5) % Plt Count (150-450) k/uL Lymphocytes # (1.0-4.8) k/uL Chloride (98-107) mmol/L BUN (9-20) mg/dL Creatinine (0.66-1.25) mg/dL Glucose (74-99) mg/dL POC Glucose (mg/dL) 140 H 268 H 247 H (75-99) mg/dL Magnesium (1.6-2.3) mg/dL AST (17-59) U/L Alkaline Phosphatase (38-126) U/L Total Protein (6.3-8.2) g/dL Albumin (3.5-5.0) g/dL Crossmatch 03/31/19 03/31/19 03/31/19 Range/Units 10:12 11:22 12:16 RBC (4.30-5.90) m/uL Hgb (13.0-17.5) gm/dL Hct (39.0-53.0) % RDW (11.5-15.5) % Plt Count (150-450) k/uL Lymphocytes # (1.0-4.8) k/uL Chloride (98-107) mmol/L BUN (9-20) mg/dL Creatinine (0.66-1.25) mg/dL Glucose (74-99) mg/dL POC Glucose (mg/dL) 224 H 190 H 178 H (75-99) mg/dL Magnesium (1.6-2.3) mg/dL AST (17-59) U/L Alkaline Phosphatase (38-126) U/L Total Protein (6.3-8.2) g/dL Albumin (3.5-5.0) g/dL Crossmatch 03/31/19 03/31/19 03/31/19 Range/Units 13:38 15:05 16:03 RBC (4.30-5.90) m/uL Hgb (13.0-17.5) gm/dL Hct (39.0-53.0) % RDW (11.5-15.5) % Plt Count (150-450) k/uL Lymphocytes # (1.0-4.8) k/uL Chloride (98-107) mmol/L BUN (9-20) mg/dL Creatinine (0.66-1.25) mg/dL Glucose (74-99) mg/dL POC Glucose (mg/dL) 224 H 211 H 209 H (75-99) mg/dL Magnesium (1.6-2.3) mg/dL AST (17-59) U/L Alkaline Phosphatase (38-126) U/L Total Protein (6.3-8.2) g/dL Albumin (3.5-5.0) g/dL Crossmatch 03/31/19 03/31/19 03/31/19 Range/Units 16:57 18:08 18:54 RBC (4.30-5.90) m/uL Hgb (13.0-17.5) gm/dL Hct (39.0-53.0) % RDW (11.5-15.5) % Plt Count (150-450) k/uL Lymphocytes # (1.0-4.8) k/uL Chloride (98-107) mmol/L BUN (9-20) mg/dL Creatinine (0.66-1.25) mg/dL Glucose (74-99) mg/dL POC Glucose (mg/dL) 176 H 209 H 203 H (75-99) mg/dL Magnesium (1.6-2.3) mg/dL AST (17-59) U/L Alkaline Phosphatase (38-126) U/L Total Protein (6.3-8.2) g/dL Albumin (3.5-5.0) g/dL Crossmatch 03/31/19 03/31/19 Range/Units 20:31 21:31 RBC (4.30-5.90) m/uL Hgb (13.0-17.5) gm/dL Hct (39.0-53.0) % RDW (11.5-15.5) % Plt Count (150-450) k/uL Lymphocytes # (1.0-4.8) k/uL Chloride (98-107) mmol/L BUN (9-20) mg/dL Creatinine (0.66-1.25) mg/dL Glucose (74-99) mg/dL POC Glucose (mg/dL) 169 H 144 H (75-99) mg/dL Magnesium (1.6-2.3) mg/dL AST (17-59) U/L Alkaline Phosphatase (38-126) U/L Total Protein (6.3-8.2) g/dL Albumin (3.5-5.0) g/dL Crossmatch Assessment and Plan Plan: 1. Triple-vessel coronary artery disease: Post 5 vessel bypass surgery successfully, came off mechanical ventilation doing well so far. 2. History of non-ST elevated myocardial infarction, coronary artery disease and multiple stents. Just had 5 vessel bypass surgery and doing well in his recovery so far 3. Diabetes mellitus type 2 with end organ damage: Patient is doing well on insulin will be on insulin drip after surgery for the first 48 hours and then back on insulin bolus and before meals meals. 4. Paroxysmal atrial fibrillation. Will be on heparin drip after surgery for the first 48 hours. Was start him back on Eliquis. Whenever giving the okay by cardiothoracic 5. Hypertension. Continue Lopressor, losartan 50 mg daily. 6. Hyperlipidemia. Continue atorvastatin 40 mg daily 7. Chronic kidney disease. Monitor renal function and avoid nephrotoxic agents. 8. Obstructive sleep apnea with home CPAP. 9. COPD, stable without exacerbation. 10. History of ventricular tachycardia and cardiomyopathy status post AICD, stable 11. Gastroesophageal reflux disease. Continue Protonix
--- NOTE | 2019-04-01 15:16 | P.PN ---
Subjective Progress Note Date: 04/01/19 Principal diagnosis: Triple-vessel coronary disease would be going for CABG: Non-ST [place], type 2 diabetes, A. fib, rheumatoid arthritis, obstructive sleep apnea chronic kidney disease, post extubation, chest tube is out, insulin drip is off. This is a 73-year-old male patient of Dr. Guevara with past medical history for coronary artery disease, paroxysmal atrial fibrillation on eliquis, diabetes mellitus type II insulin requiring with diabetic neuropathy, chronic kidney disease, kidney stones, COPD, obstructive sleep apnea with CPAP, hyperlipidemia, hypertension, and rheumatoid arthritis and cirrhotic arthritis, gout, benign prostatic hypertrophy. His primary care physician is Dr. Guevara he follows with Dr. 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 He had a heart catheterization done in 2005 that showed moderate disease involving the LAD and diagonal was mild involvement patient had some irregular lesion of the circumflex. He was seen at [facility] for chest pain and non-ST elevated WA 2010. At that time, his heart catheterization revealed an acutely occluded right coronary artery, significant disease in the moderate size third obtuse marginal branch with moderate disease in the LAD and left circumflex. Ejection fraction was 3540 percent. He underwent successful stenting of the distal RCA. Later in his room, patient developed ventricular fibrillation and was quickly resuscitated and underwent heart catheterization and underwent angioplasty and stenting of the PLV branch of the right coronary artery. On 09/14/2010, patient underwent a single chamber cardioverter defibrillator implantation. His echocardiogram revealed mild pulmonary hypertension, ejection fraction 40% at that time. In 2014 he underwent heart catheterization finding 45% proximal right coronary artery stenosis and significant mid LAD lesion which underwent PTCA and stenting of the mid LAD. Patient's also gives history of a septic knee joint needing washout which was done at [facility] at that time patient developed atrial fibrillation in the postop period. He also had a run of V. tach for which his AICD fired. Ever since that episode of sepsis, patient has had chronic kidney disease. Regarding his diabetes, he follows with Dr. Yoanna Mccormick. He is currently on Trulicity 1.5mg weekly, Lantus 56 units in the morning and recently changed to 18 units of NovoLog with meals. His last hemoglobin A1c was 7.4 in December at the [facility]. Regarding rheumatoid arthritis and psoriatic arthritis, patient follows with Dr. Shelton. In the past he has been on methotrexate, Enbrel and Humira. He was recently on Ilaris but this was stopped when he started having cardiac problems as there is concern for arrhythmia. He contacted his lens molding equipment operator and she had recommended stopping it. The patient have follow-up in the cardiology office in December of this year and underwent a Lexiscan stress test that did not demonstrate any ischemia. Over t he past 3-4 weeks she has had intermittent substernal chest pain with radiation to his arms. He was recommended for heart catheterization which was completed yesterday that found proximal LAD stenosis 60%, mid LAD stenosis 30%, circumflex stenosis 90% and RCA stenosis 60. Cardiothoracic surgery was consulted for recommendations regarding CABG versus stenting. Carotid ultrasound revealed mild plaque bilateral bifurcations but no significant stenosis. Chest x-ray reveals no acute cardiopulmonary process. Underlying COPD. patient has been evaluated by cardiothoracic surgery. Plan for tomorrow is a repeat heart catheterization to further evaluate LAD. 03/26: Patient underwent heart catheterization today with Dr. SANAM Hinds finding significant lesion in the proximal LAD and area of 2.6 mm2 also within the left main and heavy circumferential desiccation lesion in the area of 3.2 mm2. Both were deemed significant and requires bypass surgery. The patient is seen today while in the recovery area. He denies having any chest pain or shortness of breath at this time. Blood sugars will need to be well-controlled and we will make arrangements for Levemir to be 30 units in the morning and 40 at bedtime. 03/27: The patient complains of nasal congestion since he had his procedure yesterday. We will add Flonase. Regarding blood sugars nighttime blood sugar remains quite elevated and we will make additional changes to his insulins by adding NovoLog scheduled 3 units with each meal and increase nighttime Levemir to 45 units. He is scheduled for open heart on Saturday. 03/28: Patient is resting comfortably in bed without any acute distress. Patient has no complaints at this time. Patient did not receive his Levemir last night due to his blood sugar being 112. Patient's blood sugar was elevated in 150s this morning due to missing the dose of Levemir. Patient is scheduled for open heart surgery on Saturday. 03/29: Patient is sitting up in bed with at the bedside. Patient is in no acute distress. Patient has no complaints or concerns at this time. He slept well last night. Patient was given his Levemir last night his blood sugar this morning was 120. Patient is waiting to have open heart surgery on Saturday. Questions were answered. 03/30: Patient will be going for open heart surgery today we will be back in ICU on the respirator and insulin drip. 03/31: Patient is off mechanical ventilation sitting in his chair less pain and discomfort still have chest tube complaining of mild chest pain from his surgery but no other major complaint. 04/01: Patient is doing much better most of his tube out's 1 getting catheter was removed, blood sugar is much better pulse rate is running in the 60s and 70s, patient is hemodynamically stable no transfusion done last 24 hours. Objective - Vital Signs Vital signs: Vital Signs Temp 98.3 F 04/01/19 09:25 Pulse 96 04/01/19 11:43 Resp 22 04/01/19 11:43 BP 150/45 04/01/19 09:25 Pulse Ox 98 04/01/19 11:00 Intake & Output 03/31/19 04/01/19 04/01/19 18:59 06:59 18:59 Intake Total 2196.939 403.715 632.519 Output Total 705 905 40 Balance 1491.939 -501.285 592.519 Weight 104.6 kg 113.9 kg Intake: IV 366 312 130 Cardiac Output 10 Lactated Ringers 1,000 ml 290 240 100 @ 20 mls/hr IV .Q24H ALBINO Rx#:[id number] Pressure Bag 66 72 30 Intake, IV Titration 230.939 91.715 72.519 Amount Insulin Regular 100 unit 105.664 91.715 72.519 In Sodium Chloride 0.9% 100 ml @ Per Protocol IV .Q0M ALBINO Rx#:[id number] Nitroglycerin-D5w Pmx 50 25.275 mg In Dextrose/Water 1 250ml.bag @ 5 MCG/MIN 1.5 mls/hr IV .Q24H ALBINO Rx#: [id number] ceFAZolin 2 gm In Sodium 100 Chloride 0.9% 50 ml @ 100 mls/hr IVPB Q8HR ALBINO Rx# :[id number] Oral 1600 120 Blood Product 0 310 Rc As-1 Unit 0 310 [id number] Output: Chest Tube Drainage 200 200 40 Left Lateral Chest 80 110 10 Mediastinal 120 90 30 Drainage 0 Left Calf 0 Left Wrist 0 Urine 505 705 0 Other: Voiding Method Indwelling Catheter Indwelling Catheter # Voids 0 0 # Bowel Movements 1 1 1 ABP, PAP, CO, CI - Last Documented Arterial Blood Pressure 124/46 Pulmonary Artery Pressure 28/11 Cardiac Output 7.4 Cardiac Index 3.4 - Exam CONSTITUTIONAL: Overweight no acute respiratory distress. EYES: No icterus sclerae, no conjunctivitis. EARS, NOSE, MOUTH, THROAT, and FACE: No sore throat, lymphadenopathy, carotid bruits or deformity. RESPIRATORY: Mild shortness of breath no cough wheezes. CARDIOVASCULAR: Positive chest pain and angina with mild shortness of breath positive PND and orthopnea. GASTROINTESTINAL: No Abd pain, Nausea or vomiting, no Diarrhea or constipation, No GI Bleed, no distention or masses. GENITOURINARY: Negative for Hematuria or UTI, no kidney stones. INTEGUMENT/BREAST: Negative for any muscular injury with mild osteoarthritis.. HEMATOLOGIC/LYMPHATIC: Negative for bleed or purpura. MUSCULOSKELTAL: Multiple muscle and tendon involvement generalized arthralgia and myalgia. NEURLOGICAL: No LOC, Sz or syncope, blurred vision dizziness or abnormality.. BEHAVIORAL/PSYCH: Negative. ENDOCRINE: Negative. General Appearance: Alert, cooperative, no distress, appears stated age. Was extubation still have multiple chest tube and Langley-Diana catheter in the right side Neck HEENT: Supple, no lymphadenopathy, no thyroid enlargement, no carotid bruits. Lungs: Decrease breath some bilateral fine rhonchi no crackles plasma extract wheezes. Chest Wall: Incision from his surgery with 2 chest tube still on. Heart: Irregular rate and rhythm, S1, S2 normal, no murmur, rub or gallop. Back: Symmetric, no curvature, ROM normal, no CVA tenderness. Abdomen: Soft, non-tender, bowel sounds active all four quadrants, no masses, no organomegaly. Extremities: Trace edema all multiple joint involvement with RA.. Pulses: 2+ and symmetric. Skin: Skin color, texture, tugor normal, no rashes or lesions. Neurologic: Alert oriented x3 cranial nerves II through XII intact, no motor deficit, no abnormal balance or gait. - Labs CBC & Chem 7: 04/01/19 12:03 04/01/19 04:25 Labs: Abnormal Lab Results - Last 24 Hours (Table) 03/29/19 03/31/19 03/31/19 Range/Units 05:44 16:03 16:57 WBC (3.8-10.6) k/uL RBC (4.30-5.90) m/uL Hgb (13.0-17.5) gm/dL Hct (39.0-53.0) % RDW (11.5-15.5) % Plt Count (150-450) k/uL Neutrophils # (1.3-7.7) k/uL Lymphocytes # (1.0-4.8) k/uL Monocytes # (0-1.0) k/uL Sodium (137-145) mmol/L Carbon Dioxide (22-30) mmol/L BUN (9-20) mg/dL Creatinine (0.66-1.25) mg/dL Glucose (74-99) mg/dL POC Glucose (mg/dL) 209 H 176 H (75-99) mg/dL Total Protein (6.3-8.2) g/dL Albumin (3.5-5.0) g/dL Crossmatch See Detail 03/31/19 03/31/19 03/31/19 Range/Units 18:08 18:54 20:31 WBC (3.8-10.6) k/uL RBC (4.30-5.90) m/uL Hgb (13.0-17.5) gm/dL Hct (39.0-53.0) % RDW (11.5-15.5) % Plt Count (150-450) k/uL Neutrophils # (1.3-7.7) k/uL Lymphocytes # (1.0-4.8) k/uL Monocytes # (0-1.0) k/uL Sodium (137-145) mmol/L Carbon Dioxide (22-30) mmol/L BUN (9-20) mg/dL Creatinine (0.66-1.25) mg/dL Glucose (74-99) mg/dL POC Glucose (mg/dL) 209 H 203 H 169 H (75-99) mg/dL Total Protein (6.3-8.2) g/dL Albumin (3.5-5.0) g/dL Crossmatch 03/31/19 03/31/19 03/31/19 Range/Units 21:31 22:21 23:38 WBC (3.8-10.6) k/uL RBC (4.30-5.90) m/uL Hgb (13.0-17.5) gm/dL Hct (39.0-53.0) % RDW (11.5-15.5) % Plt Count (150-450) k/uL Neutrophils # (1.3-7.7) k/uL Lymphocytes # (1.0-4.8) k/uL Monocytes # (0-1.0) k/uL Sodium (137-145) mmol/L Carbon Dioxide (22-30) mmol/L BUN (9-20) mg/dL Creatinine (0.66-1.25) mg/dL Glucose (74-99) mg/dL POC Glucose (mg/dL) 144 H 142 H 130 H (75-99) mg/dL Total Protein (6.3-8.2) g/dL Albumin (3.5-5.0) g/dL Crossmatch 04/01/19 04/01/19 04/01/19 Range/Units 01:07 02:00 04:24 WBC (3.8-10.6) k/uL RBC (4.30-5.90) m/uL Hgb (13.0-17.5) gm/dL Hct (39.0-53.0) % RDW (11.5-15.5) % Plt Count (150-450) k/uL Neutrophils # (1.3-7.7) k/uL Lymphocytes # (1.0-4.8) k/uL Monocytes # (0-1.0) k/uL Sodium (137-145) mmol/L Carbon Dioxide (22-30) mmol/L BUN (9-20) mg/dL Creatinine (0.66-1.25) mg/dL Glucose (74-99) mg/dL POC Glucose (mg/dL) 115 H 112 H 229 H (75-99) mg/dL Total Protein (6.3-8.2) g/dL Albumin (3.5-5.0) g/dL Crossmatch 04/01/19 04/01/19 04/01/19 Range/Units 04:25 04:25 04:52 WBC (3.8-10.6) k/uL RBC 2.21 L 2.24 L (4.30-5.90) m/uL Hgb 6.7 L* 6.7 L* (13.0-17.5) gm/dL Hct 19.4 L* 19.6 L* (39.0-53.0) % RDW 16.4 H 16.5 H (11.5-15.5) % Plt Count 63 L 65 L (150-450) k/uL Neutrophils # (1.3-7.7) k/uL Lymphocytes # 0.8 L (1.0-4.8) k/uL Monocytes # (0-1.0) k/uL Sodium 135 L (137-145) mmol/L Carbon Dioxide 20 L (22-30) mmol/L BUN 34 H (9-20) mg/dL Creatinine 2.02 H (0.66-1.25) mg/dL Glucose 200 H (74-99) mg/dL POC Glucose (mg/dL) (75-99) mg/dL Total Protein 5.1 L (6.3-8.2) g/dL Albumin 3.3 L (3.5-5.0) g/dL Crossmatch 04/01/19 04/01/19 04/01/19 Range/Units 05:29 06:08 07:08 WBC (3.8-10.6) k/uL RBC (4.30-5.90) m/uL Hgb (13.0-17.5) gm/dL Hct (39.0-53.0) % RDW (11.5-15.5) % Plt Count (150-450) k/uL Neutrophils # (1.3-7.7) k/uL Lymphocytes # (1.0-4.8) k/uL Monocytes # (0-1.0) k/uL Sodium (137-145) mmol/L Carbon Dioxide (22-30) mmol/L BUN (9-20) mg/dL Creatinine (0.66-1.25) mg/dL Glucose (74-99) mg/dL POC Glucose (mg/dL) 221 H 195 H 165 H (75-99) mg/dL Total Protein (6.3-8.2) g/dL Albumin (3.5-5.0) g/dL Crossmatch 04/01/19 04/01/19 04/01/19 Range/Units 08:08 09:24 10:31 WBC (3.8-10.6) k/uL RBC (4.30-5.90) m/uL Hgb (13.0-17.5) gm/dL Hct (39.0-53.0) % RDW (11.5-15.5) % Plt Count (150-450) k/uL Neutrophils # (1.3-7.7) k/uL Lymphocytes # (1.0-4.8) k/uL Monocytes # (0-1.0) k/uL Sodium (137-145) mmol/L Carbon Dioxide (22-30) mmol/L BUN (9-20) mg/dL Creatinine (0.66-1.25) mg/dL Glucose (74-99) mg/dL POC Glucose (mg/dL) 183 H 176 H 124 H (75-99) mg/dL Total Protein (6.3-8.2) g/dL Albumin (3.5-5.0) g/dL Crossmatch 04/01/19 04/01/19 04/01/19 Range/Units 11:19 12:00 12:03 WBC 10.9 H (3.8-10.6) k/uL RBC 2.65 L (4.30-5.90) m/uL Hgb 7.8 L (13.0-17.5) gm/dL Hct 23.3 L (39.0-53.0) % RDW 16.3 H (11.5-15.5) % Plt Count 101 L D (150-450) k/uL Neutrophils # 8.5 H (1.3-7.7) k/uL Lymphocytes # (1.0-4.8) k/uL Monocytes # 1.1 H (0-1.0) k/uL Sodium (137-145) mmol/L Carbon Dioxide (22-30) mmol/L BUN (9-20) mg/dL Creatinine (0.66-1.25) mg/dL Glucose (74-99) mg/dL POC Glucose (mg/dL) 111 H 158 H (75-99) mg/dL Total Protein (6.3-8.2) g/dL Albumin (3.5-5.0) g/dL Crossmatch 04/01/19 04/01/19 04/01/19 Range/Units 13:17 14:24 15:11 WBC (3.8-10.6) k/uL RBC (4.30-5.90) m/uL Hgb (13.0-17.5) gm/dL Hct (39.0-53.0) % RDW (11.5-15.5) % Plt Count (150-450) k/uL Neutrophils # (1.3-7.7) k/uL Lymphocytes # (1.0-4.8) k/uL Monocytes # (0-1.0) k/uL Sodium (137-145) mmol/L Carbon Dioxide (22-30) mmol/L BUN (9-20) mg/dL Creatinine (0.66-1.25) mg/dL Glucose (74-99) mg/dL POC Glucose (mg/dL) 242 H 226 H 209 H (75-99) mg/dL Total Protein (6.3-8.2) g/dL Albumin (3.5-5.0) g/dL Crossmatch Assessment and Plan Plan: 1. Triple-vessel coronary artery disease: Post 5 vessel bypass surgery successfully, came off mechanical ventilation doing well so far. 2. History of non-ST elevated myocardial infarction, coronary artery disease and multiple stents. Just had 5 vessel bypass surgery and doing well in his recovery so far 3. Diabetes mellitus type 2 with end organ damage: Patient is doing well on insulin will be on insulin drip after surgery for the first 48 hours and then back on insulin bolus and before meals meals. 4. Paroxysmal atrial fibrillation. Will be on heparin drip after surgery for the first 48 hours. Was start him back on Eliquis. Whenever giving the okay by cardiothoracic 5. Hypertension. Continue Lopressor, losartan 50 mg daily. 6. Hyperlipidemia. Continue atorvastatin 40 mg daily 7. Chronic kidney disease. Monitor renal function and avoid nephrotoxic agents. 8. Obstructive sleep apnea with home CPAP. 9. Mechanical ventilation post CABG: Doing very well off mechanical ventilation still on O2 pulse ox running in the 90s. 10. History of ventricular tachycardia and cardiomyopathy status post AICD, stable 11. Gastroesophageal reflux disease. Continue Protonix
[2019-04-01 16:05] LABS: Glucose,Whole Blood 174 mg/dL (75-99)
[2019-04-01] MEDS: DEXTROSE 5% IN WATER 100 ML with AMIODARONE 150 MG IV PRN ×3 (16:39→18:19)
[2019-04-01 17:04] LABS: Glucose,Whole Blood 179 mg/dL (75-99)
--- NOTE | 2019-04-01 17:20 | P.PN ---
Subjective Progress Note Date: 04/01/19 Principal diagnosis: Coronary artery disease On 03/29/2019 patient seen in follow-up on selective care unit, he is awake and alert, in no acute distress, room air pulse ox is 96%, doing well, denies any chest pain, no fever or chills, hemodynamically stable. 9 any chest x-ray today, today's labs have been reviewed. No acute issues overnight, lung sounds are clear, patient is awaiting surgery bypass grafting by Dr. Hurst tomorrow on 03/30/2019. On 04/01/2019 patient may seen in follow-up in the intensive care unit. This is postop day 2 status post quadruple coronary artery bypass grafting using the RAMIREZ to LAD, left radial artery to the first up to his marginal coronary artery, reverse SVG to the diagonal, and a reverse SVG to the PDA and posterior lateral branch of the RCA. Patient also had the left atrial appendage exclusion with the 35mm a true clip and Intra-Op transesophageal echocardiogram and at the aortic scanning. Doing well, in no acute distress, he has been up ambulating, tolerating activity well, room air pulse ox is 97%, hemodynamically stable, no fever or chills, remains in sinus mechanism with a controlled rate. He is working on the incentive spirometer, he is achieving 500-750 ML, right IJ Cordis is in place, current CVP is 12 mmHg, mediastinal and left pleural chest tubes are in place, draining thin serosanguineous drainage. Patient has been up ambulating, with assistance, limited activity well. " Today 6.7, and patient did receive 1 unit of packed red blood cells this morning. His chest x-ray today, showed interval removal of the [place] catheter, and a trace pleural effusions and bibasilar atelectasis. Objective - Vital Signs Vital signs: Vital Signs Temp 98.4 F 04/01/19 16:00 Pulse 97 04/01/19 16:03 Resp 23 04/01/19 16:00 BP 112/54 04/01/19 16:00 Pulse Ox 97 04/01/19 16:00 Intake & Output 03/31/19 04/01/19 04/01/19 18:59 06:59 18:59 Intake Total 2196.939 380.631 4238.975 Output Total 705 905 480 Balance 1491.939 -501.285 524.975 Weight 104.6 kg 113.9 kg Intake: IV 366 312 260 Cardiac Output 10 Lactated Ringers 1,000 ml 290 240 200 @ 20 mls/hr IV .Q24H [facility] Rx#:[id number] Pressure Bag 66 72 60 Intake, IV Titration 230.939 91.715 194.975 Amount Dextrose 5% in Water 100 100 ml @ 618 mls/hr IV .Q10M PRN with Amiodarone 150 mg Rx#:[id number] Insulin Regular 100 unit 105.664 91.715 94.975 In Sodium Chloride 0.9% 100 ml @ Per Protocol IV .Q0M [facility] Rx#:[id number] Nitroglycerin-D5w Pmx 50 25.275 mg In Dextrose/Water 1 250ml.bag @ 5 MCG/MIN 1.5 mls/hr IV .Q24H [facility] Rx#: [id number] ceFAZolin 2 gm In Sodium 100 Chloride 0.9% 50 ml @ 100 mls/hr IVPB Q8HR [facility] Rx# :[id number] Oral 1600 240 Blood Product 0 310 Rc As-1 Unit 0 310 [id number] Output: Chest Tube Drainage 200 200 40 Left Lateral Chest 80 110 10 Mediastinal 120 90 30 Drainage 0 Left Calf 0 Left Wrist 0 Urine 505 705 440 Other: Voiding Method Indwelling Catheter Indwelling Catheter # Voids 0 0 # Bowel Movements 1 1 2 ABP, PAP, CO, CI - Last Documented Arterial Blood Pressure 119/50 Pulmonary Artery Pressure 28/11 Cardiac Output 7.4 Cardiac Index 3.4 - Exam GENERAL EXAM: Alert, pleasant, 73-year-old white male comfortable in no apparent distress. HEAD: Normocephalic/atraumatic. EYES: Normal reaction of pupils, equal size. Conjunctiva pink, sclera white. NOSE: Clear with pink turbinates. THROAT: No erythema or exudates. NECK: No masses, no JVD, no thyroid enlargement, no adenopathy. CHEST: No chest wall deformity. Symmetrical expansion. Midsternal incision, clean dry and intact, covered with dressing, left pleural and mediastinal chest tubes are in place with small amount of serosanguineous output and the chest tubes, no evidence of air leak, chest tubes remained to suction LUNGS: Equal air entry with no crackles, wheeze, rhonchi or dullness. CVS: Regular rate and rhythm, normal S1 and S2, no gallops, no murmurs, no rubs ABDOMEN: Soft, nontender. No hepatosplenomegaly, normal bowel sounds, no guarding or rigidity. EXTREMITIES: No clubbing, no edema, no cyanosis, 2+ pulses and upper and lower extremities. Bilateral lower extremities are luke wrapped, SCDs are on MUSCULOSKELETAL: Muscle strength and tone normal. SPINE: No scoliosis or deformity SKIN: No rashes CENTRAL NERVOUS SYSTEM: Alert and oriented -3. No focal deficits, tone is normal in all 4 extremities. PSYCHIATRIC: Alert and oriented -3. Appropriate affect. Intact judgment and insight. - Labs CBC & Chem 7: 04/01/19 12:03 04/01/19 04:25 Labs: Abnormal Lab Results - Last 24 Hours (Table) 03/29/19 03/31/19 03/31/19 Range/Units 05:44 18:08 18:54 WBC (3.8-10.6) k/uL RBC (4.30-5.90) m/uL Hgb (13.0-17.5) gm/dL Hct (39.0-53.0) % RDW (11.5-15.5) % Plt Count (150-450) k/uL Neutrophils # (1.3-7.7) k/uL Lymphocytes # (1.0-4.8) k/uL Monocytes # (0-1.0) k/uL Sodium (137-145) mmol/L Carbon Dioxide (22-30) mmol/L BUN (9-20) mg/dL Creatinine (0.66-1.25) mg/dL Glucose (74-99) mg/dL POC Glucose (mg/dL) 209 H 203 H (75-99) mg/dL Total Protein (6.3-8.2) g/dL Albumin (3.5-5.0) g/dL Crossmatch See Detail 03/31/19 03/31/19 03/31/19 Range/Units 20:31 21:31 22:21 WBC (3.8-10.6) k/uL RBC (4.30-5.90) m/uL Hgb (13.0-17.5) gm/dL Hct (39.0-53.0) % RDW (11.5-15.5) % Plt Count (150-450) k/uL Neutrophils # (1.3-7.7) k/uL Lymphocytes # (1.0-4.8) k/uL Monocytes # (0-1.0) k/uL Sodium (137-145) mmol/L Carbon Dioxide (22-30) mmol/L BUN (9-20) mg/dL Creatinine (0.66-1.25) mg/dL Glucose (74-99) mg/dL POC Glucose (mg/dL) 169 H 144 H 142 H (75-99) mg/dL Total Protein (6.3-8.2) g/dL Albumin (3.5-5.0) g/dL Crossmatch 03/31/19 04/01/19 04/01/19 Range/Units 23:38 01:07 02:00 WBC (3.8-10.6) k/uL RBC (4.30-5.90) m/uL Hgb (13.0-17.5) gm/dL Hct (39.0-53.0) % RDW (11.5-15.5) % Plt Count (150-450) k/uL Neutrophils # (1.3-7.7) k/uL Lymphocytes # (1.0-4.8) k/uL Monocytes # (0-1.0) k/uL Sodium (137-145) mmol/L Carbon Dioxide (22-30) mmol/L BUN (9-20) mg/dL Creatinine (0.66-1.25) mg/dL Glucose (74-99) mg/dL POC Glucose (mg/dL) 130 H 115 H 112 H (75-99) mg/dL Total Protein (6.3-8.2) g/dL Albumin (3.5-5.0) g/dL Crossmatch 04/01/19 04/01/19 04/01/19 Range/Units 04:24 04:25 04:25 WBC (3.8-10.6) k/uL RBC 2.21 L (4.30-5.90) m/uL Hgb 6.7 L* (13.0-17.5) gm/dL Hct 19.4 L* (39.0-53.0) % RDW 16.4 H (11.5-15.5) % Plt Count 63 L (150-450) k/uL Neutrophils # (1.3-7.7) k/uL Lymphocytes # 0.8 L (1.0-4.8) k/uL Monocytes # (0-1.0) k/uL Sodium 135 L (137-145) mmol/L Carbon Dioxide 20 L (22-30) mmol/L BUN 34 H (9-20) mg/dL Creatinine 2.02 H (0.66-1.25) mg/dL Glucose 200 H (74-99) mg/dL POC Glucose (mg/dL) 229 H (75-99) mg/dL Total Protein 5.1 L (6.3-8.2) g/dL Albumin 3.3 L (3.5-5.0) g/dL Crossmatch 04/01/19 04/01/19 04/01/19 Range/Units 04:52 05:29 06:08 WBC (3.8-10.6) k/uL RBC 2.24 L (4.30-5.90) m/uL Hgb 6.7 L* (13.0-17.5) gm/dL Hct 19.6 L* (39.0-53.0) % RDW 16.5 H (11.5-15.5) % Plt Count 65 L (150-450) k/uL Neutrophils # (1.3-7.7) k/uL Lymphocytes # (1.0-4.8) k/uL Monocytes # (0-1.0) k/uL Sodium (137-145) mmol/L Carbon Dioxide (22-30) mmol/L BUN (9-20) mg/dL Creatinine (0.66-1.25) mg/dL Glucose (74-99) mg/dL POC Glucose (mg/dL) 221 H 195 H (75-99) mg/dL Total Protein (6.3-8.2) g/dL Albumin (3.5-5.0) g/dL Crossmatch 04/01/19 04/01/19 04/01/19 Range/Units 07:08 08:08 09:24 WBC (3.8-10.6) k/uL RBC (4.30-5.90) m/uL Hgb (13.0-17.5) gm/dL Hct (39.0-53.0) % RDW (11.5-15.5) % Plt Count (150-450) k/uL Neutrophils # (1.3-7.7) k/uL Lymphocytes # (1.0-4.8) k/uL Monocytes # (0-1.0) k/uL Sodium (137-145) mmol/L Carbon Dioxide (22-30) mmol/L BUN (9-20) mg/dL Creatinine (0.66-1.25) mg/dL Glucose (74-99) mg/dL POC Glucose (mg/dL) 165 H 183 H 176 H (75-99) mg/dL Total Protein (6.3-8.2) g/dL Albumin (3.5-5.0) g/dL Crossmatch 04/01/19 04/01/19 04/01/19 Range/Units 10:31 11:19 12:00 WBC (3.8-10.6) k/uL RBC (4.30-5.90) m/uL Hgb (13.0-17.5) gm/dL Hct (39.0-53.0) % RDW (11.5-15.5) % Plt Count (150-450) k/uL Neutrophils # (1.3-7.7) k/uL Lymphocytes # (1.0-4.8) k/uL Monocytes # (0-1.0) k/uL Sodium (137-145) mmol/L Carbon Dioxide (22-30) mmol/L BUN (9-20) mg/dL Creatinine (0.66-1.25) mg/dL Glucose (74-99) mg/dL POC Glucose (mg/dL) 124 H 111 H 158 H (75-99) mg/dL Total Protein (6.3-8.2) g/dL Albumin (3.5-5.0) g/dL Crossmatch 04/01/19 04/01/19 04/01/19 Range/Units 12:03 13:17 14:24 WBC 10.9 H (3.8-10.6) k/uL RBC 2.65 L (4.30-5.90) m/uL Hgb 7.8 L (13.0-17.5) gm/dL Hct 23.3 L (39.0-53.0) % RDW 16.3 H (11.5-15.5) % Plt Count 101 L D (150-450) k/uL Neutrophils # 8.5 H (1.3-7.7) k/uL Lymphocytes # (1.0-4.8) k/uL Monocytes # 1.1 H (0-1.0) k/uL Sodium (137-145) mmol/L Carbon Dioxide (22-30) mmol/L BUN (9-20) mg/dL Creatinine (0.66-1.25) mg/dL Glucose (74-99) mg/dL POC Glucose (mg/dL) 242 H 226 H (75-99) mg/dL Total Protein (6.3-8.2) g/dL Albumin (3.5-5.0) g/dL Crossmatch 04/01/19 04/01/19 04/01/19 Range/Units 15:11 16:03 17:02 WBC (3.8-10.6) k/uL RBC (4.30-5.90) m/uL Hgb (13.0-17.5) gm/dL Hct (39.0-53.0) % RDW (11.5-15.5) % Plt Count (150-450) k/uL Neutrophils # (1.3-7.7) k/uL Lymphocytes # (1.0-4.8) k/uL Monocytes # (0-1.0) k/uL Sodium (137-145) mmol/L Carbon Dioxide (22-30) mmol/L BUN (9-20) mg/dL Creatinine (0.66-1.25) mg/dL Glucose (74-99) mg/dL POC Glucose (mg/dL) 209 H 174 H 179 H (75-99) mg/dL Total Protein (6.3-8.2) g/dL Albumin (3.5-5.0) g/dL Crossmatch Assessment and Plan Plan: Assessment: #1 Coronary artery disease with significant disease involving the proximal LAD and left main, status post quadruple coronary artery bypass grafting surgery using the RAMIREZ to LAD, left radial artery to the first OM, reverse SVG to the diagonal, reverse SVG to the PDA and posterior lateral branch of the right coronary artery, bilateral pulmonary vein isolation using bipolar radiofrequency and exclusion of the left atrial appendage using that and she'll clip and intraoperative transesophageal echocardiogram, postoperative day 2 #2 postoperative acute blood loss anemia, an expected outcome of cardiopulmonary bypass and revascularization surgery #3 thrombocytopenia, and expected outcome of cardiopulmonary bypass and revascularization surgery #4 history of atrial fibrillation, currently in sinus rhythm #5 Previous history of coronary artery disease with stent placement #6 Ischemic cardiomyopathy and ventricular tachycardia status post AICD placement. #7 History of atrial fibrillation. #8 Chronic bronchitis, currently inactive and stable. FEV1 value 63% of predicted. Patient also has a component of restrictive lung disease, with FEV1 to FVC ratio of 101% of predicted #9 Hyperlipidemia. #10 Hypertension. #11 History of pulmonary embolism. #12 Obstructive sleep apnea utilizing CPAP. 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 #14 Diabetes mellitus. #15 Peripheral neuropathy. #16 History of gout. Plan: Continue encouraging deep breathing and coughing, encourage ambulation, hemodynamically patient remains stable, did receive a unit of blood today for hemoglobin of 6.7, continue aspirin and Plavix, continue nebulized bronchodilators, chest x-ray has been reviewed showing small pleural effusions and bibasilar atelectasis, chest tubes remain in place. We'll continue to follow along with cardiothoracic surgery. Patient can continue using his home CPAP unit I performed a history & physical examination of the patient and discussed their management with my nurse practitioner, Jyothi Green. I reviewed the nurse practitioner's note and agree with the documented findings and plan of care. Lung sounds are positive for clear breath sounds. The findings and the impression was discussed with the patient. I attest to the documentation by the nurse practitioner. Time with Patient: Less than 30
[2019-04-01 18:06] LABS: Glucose,Whole Blood 185 mg/dL (75-99)
[2019-04-01] MEDS: ACETAMINOPHEN TAB 500 MG TAB PO PRN (18:28)
[2019-04-01 19:08] LABS: Glucose,Whole Blood 224 mg/dL (75-99)
[2019-04-01 20:20] LABS: Glucose,Whole Blood 187 mg/dL (75-99)
[2019-04-01] MEDS: SENNOSIDES-DOCUSATE SODIUM 1 EACH TAB PO SCH (21:30)
[2019-04-01] MEDS: METOPROLOL TARTRATE 50 MG TAB PO SCH (21:31)
[2019-04-01 21:32] LABS: Glucose,Whole Blood 189 mg/dL (75-99)
[2019-04-01 22:20] LABS: Glucose,Whole Blood 145 mg/dL (75-99)
[2019-04-01 23:16] LABS: Glucose,Whole Blood 128 mg/dL (75-99)
[2019-04-02 00:47] LABS: Glucose,Whole Blood 88 mg/dL (75-99)
[2019-04-02] MEDS: HEPARIN SODIUM,PORCINE 5,000 UNIT/ML 1 ML VIAL SQ SCH ×3 (00:49→15:59)
[2019-04-02 01:19] LABS: Glucose,Whole Blood 91 mg/dL (75-99)
[2019-04-02 02:11] LABS: Glucose,Whole Blood 163 mg/dL (75-99)
[2019-04-02] MEDS: ACETAMINOPHEN TAB 500 MG TAB PO PRN ×3 (02:18→21:00)
[2019-04-02 03:01] LABS: Glucose,Whole Blood 182 mg/dL (75-99)
[2019-04-02 04:10] LABS: Glucose,Whole Blood 233 mg/dL (75-99)
[2019-04-02 04:54] LABS: Glucose,Whole Blood 254 mg/dL (75-99)
[2019-04-02] MEDS: INSULIN REGULAR 100 UNIT in SODIUM CHLORIDE 0.9% 100 ML IV SCH (04:54)
[2019-04-02 05:36] LABS: Calcium 8.3 mg/dL (8.4-10.2); Potassium 4.5 mmol/L (3.5-5.1); Total Bilirubin 1.8 mg/dL (0.2-1.3)
[2019-04-02 05:43] LABS: Anisocytosis Slight; Basophils % (A) 0 %; Eosinophils % (A) 0 %; HCT 22.6 % (39.0-53.0); HGB 7.5 gm/dL (13.0-17.5); Lymphocytes # (A) 0.6 k/uL (1.0-4.8); Lymphocytes % (A) 5 %; MCHC 33.3 g/dL (31.0-37.0); MCV 90.2 fL (80.0-100.0); Mean Platelet Volume 7.9; Monocytes # (A) 0.3 k/uL (0-1.0); Monocytes % (A) 2 %; Neutrophils # (A) 11.1 k/uL (1.3-7.7); Neutrophils % (A) 92 %; Platelet Count 104 k/uL (150-450); Poikilocytosis Slight; RBC 2.51 m/uL (4.30-5.90); RDW 16.5 % (11.5-15.5)
[2019-04-02 06:20] LABS: Glucose,Whole Blood 181 mg/dL (75-99)
[2019-04-02 06:52] LABS: Glucose,Whole Blood 150 mg/dL (75-99)
[2019-04-02] MEDS: IPRATROPIUM-ALBUTEROL 3 ML NEB INHALATION SCH ×4 (07:50→20:28)
[2019-04-02] MEDS: ASPIRIN 325 MG TAB PO SCH (08:17)
[2019-04-02 08:18] LABS: Glucose,Whole Blood 88 mg/dL (75-99)
[2019-04-02] MEDS: METOPROLOL TARTRATE 50 MG TAB PO SCH (08:18)
[2019-04-02] MEDS: AMIODARONE 200 MG TAB PO SCH ×2 (08:18→21:06)
[2019-04-02] MEDS: PANTOPRAZOLE 40 MG TABLET PO SCH (08:18)
[2019-04-02] MEDS: amLODIPine 2.5 MG TAB PO SCH (08:18)
[2019-04-02] MEDS: ATORVASTATIN 40 MG TAB PO SCH (08:18)
[2019-04-02] MEDS: TAMSULOSIN 0.4 MG CAP.ER.24H PO SCH (08:18)
[2019-04-02] MEDS: CLOPIDOGREL 75 MG TAB PO SCH (08:18)
--- NOTE | 2019-04-02 08:27 | XR ---
EXAMINATION TYPE: XR chest 1V portable DATE OF EXAM: 04/02/2019 COMPARISON: Prior chest x-ray 04/01/2019 HISTORY: Status post cardiac surgery TECHNIQUE: Single frontal view of the chest is obtained. FINDINGS: Patient is post median sternotomy and atrial appendage clipping placement. Mediastinum is widened, heart is enlarged. Interstitium is increased. Perihilar increased density persists. There is no evident pneumothorax. Generator is in left pectoral region, intracardiac defibrillator lead in th e right ventricle. Postop changes are noted to the left shoulder. Aorta is dense. Some blunting the c ostophrenic angles noted. IMPRESSION: Correlate for pulmonary venous hypertension and interstitial edema, volume overload. Dif ficult to exclude small effusions, possible basilar atelectasis or edema. Follow-up recommended.
[2019-04-02 08:48] LABS: Glucose,Whole Blood 79 mg/dL (75-99)
--- NOTE | 2019-04-02 09:07 | P.PN ---
Subjective Progress Note Date: 04/02/19 Principal diagnosis: Triple-vessel coronary artery disease. 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 POD #3 quintuple coronary artery bypass grafting using the left internal mammary artery to the left anterior descending coronary artery, left radial artery from the aorta to the first obtuse marginal coronary artery, reverse greater saphenous vein graft from the aorta to the diagonal coronary artery, reverse greater saphenous vein graft from the aorta to the posterior descending coronary artery, and reverse greater saphenous vein graft from aorta to the posterior lateral branch of the right coronary artery. Bilateral pulmonary vein isolation using the bipolar radiofrequency energy by Atricure, exclusion of the left atrial appendage using a 35 mm Atriclip, endoscopic left radial artery harvest, endoscopic harvesting of the left greater saphenous vein from the groin to above the ankle level and right greater saphenous vein from the groin to below the knee level, intraoperative graft flow measurements using the Ramamiastim system, intraoperative transesophageal echocardiogram and epi-aortic scanning. Postoperative acute blood loss anemia, expected outcome due to hemodilution and cardiopulmonary bypass. Postoperative thrombocytopenia, expected outcome due to his preoperative thrombocytopenia and hemodilution. The patient is currently sitting up in the recliner in the intensive care unit in no acute distress. Does complain of lower back pain but no chest pain, denies shortness of breath. Patient requires a lot of motivation to cough and deep breathe. He would prefer to get back in bed and sleep all day. Reinforced the need to ambulate, cough and deep breathe, adequate pain control. Chest tubes were discontinued yesterday. No new concerns. Objective - Vital Signs Vital signs: Vital Signs Temp 97.6 F 04/02/19 08:00 Pulse 80 04/02/19 08:01 Resp 23 04/02/19 08:00 BP 141/63 04/02/19 08:00 Pulse Ox 100 04/02/19 08:00 Intake & Output 04/01/19 04/02/19 04/02/19 18:59 06:59 18:59 Intake Total 1172.075 455.930 67.134 Output Total 580 445 80 Balance 592.075 10.930 -12.866 Weight 112.9 kg Intake: IV 312 297 46 Lactated Ringers 1,000 ml 240 240 40 @ 20 mls/hr IV .Q24H [facility] Rx#:[id number] Pressure Bag 72 57 6 Intake, IV Titration 310.075 158.930 21.134 Amount Dextrose 5% in Water 100 200 ml @ 618 mls/hr IV .Q10M PRN with Amiodarone 150 mg Rx#:[id number] Insulin Regular 100 unit 110.075 158.930 21.134 In Sodium Chloride 0.9% 100 ml @ Per Protocol IV .Q0M [facility] Rx#:[id number] Oral 240 Blood Product 310 Rc As-1 Unit 310 [id number] Output: Chest Tube Drainage 40 Left Lateral Chest 10 Mediastinal 30 Urine 540 445 80 Other: Voiding Method Indwelling Catheter Indwelling Catheter # Voids 0 # Bowel Movements 2 1 ABP, PAP, CO, CI - Last Documented Arterial Blood Pressure 116/50 Pulmonary Artery Pressure 28/11 Cardiac Output 7.4 Cardiac Index 3.4 - Constitutional General appearance: Present: cooperative, no acute distress, obese - Respiratory Details: Lungs sounds diminished bilaterally. Respirations even, nonlabored. Currently on 3 L nasal cannula with oxygen saturation 95%. Able to achieve 500-750 mL on his incentive spirometry. Strong cough. - Cardiovascular Details: S1, S2 present. Regular rate and rhythm, sinus rhythm on telemetry. Sternum stable. A/V epicardial pacemaker wires present, grounded. Palpable peripheral pulses bilaterally. No edema present. No calf pain or tenderness noted. Right internal jugular Cordis, right radial arterial line present. Heart hugger in place with patient intermittently demonstrating appropriate use with much encouragement, antiembolism stockings, SCDs present. - Gastrointestinal Gastrointestinal Comment(s): Abdomen soft, nontender, nondistended. Active bowel sounds present 4 quadrants. Tolerating minimal diet. Positive bowel movement. - Genitourinary Genitourinary Comment(s): Uribe present draining concentrated yellow urine. Output 35-40 mL/h overnight. - Integumentary Integumentary Comment(s): Skin is warm and dry with evidence of good perfusion. Anterior chest incision well approximated and covered with dry intact dressing. Left radial artery harvest site well approximated, patient able to move all fingers, configuration release manager appropriately, denies numbness or tingling. Bilateral lower extremity EVH sites well approximated. - Neurologic Neurologic: Present: CNII-XII intact - Musculoskeletal Musculoskeletal Comment(s): Patient a bit wobbly on his feet requiring standby assist 2 Musculoskeletal: Present: gait normal, strength equal bilaterally - Psychiatric Psychiatric: Present: A&O x's 3, appropriate affect, intact judgment & insight - Allied health notes Allied health notes reviewed: nursing - Labs CBC & Chem 7: 04/02/19 05:17 04/02/19 05:17 Labs: Abnormal Lab Results - Last 24 Hours (Table) 03/29/19 04/01/19 04/01/19 Range/Units 05:44 09:24 10:31 WBC (3.8-10.6) k/uL RBC (4.30-5.90) m/uL Hgb (13.0-17.5) gm/dL Hct (39.0-53.0) % RDW (11.5-15.5) % Plt Count (150-450) k/uL Neutrophils # (1.3-7.7) k/uL Lymphocytes # (1.0-4.8) k/uL Monocytes # (0-1.0) k/uL Sodium (137-145) mmol/L Carbon Dioxide (22-30) mmol/L BUN (9-20) mg/dL Creatinine (0.66-1.25) mg/dL Glucose (74-99) mg/dL POC Glucose (mg/dL) 176 H 124 H (75-99) mg/dL Calcium (8.4-10.2) mg/dL Total Bilirubin (0.2-1.3) mg/dL Total Protein (6.3-8.2) g/dL Albumin (3.5-5.0) g/dL Crossmatch See Detail 04/01/19 04/01/19 04/01/19 Range/Units 11: 12:00 12:03 WBC 10.9 H (3.8-10.6) k/uL RBC 2.65 L (4.30-5.90) m/uL Hgb 7.8 L (13.0-17.5) gm/dL Hct 23.3 L (39.0-53.0) % RDW 16.3 H (11.5-15.5) % Plt Count 101 L D (150-450) k/uL Neutrophils # 8.5 H (1.3-7.7) k/uL Lymphocytes # (1.0-4.8) k/uL Monocytes # 1.1 H (0-1.0) k/uL Sodium (137-145) mmol/L Carbon Dioxide (22-30) mmol/L BUN (9-20) mg/dL Creatinine (0.66-1.25) mg/dL Glucose (74-99) mg/dL POC Glucose (mg/dL) 111 H 158 H (75-99) mg/dL Calcium (8.4-10.2) mg/dL Total Bilirubin (0.2-1.3) mg/dL Total Protein (6.3-8.2) g/dL Albumin (3.5-5.0) g/dL Crossmatch 04/01/19 04/01/19 04/01/19 Range/Units 13:17 14:24 15:11 WBC (3.8-10.6) k/uL RBC (4.30-5.90) m/uL Hgb (13.0-17.5) gm/dL Hct (39.0-53.0) % RDW (11.5-15.5) % Plt Count (150-450) k/uL Neutrophils # (1.3-7.7) k/uL Lymphocytes # (1.0-4.8) k/uL Monocytes # (0-1.0) k/uL Sodium (137-145) mmol/L Carbon Dioxide (22-30) mmol/L BUN (9-20) mg/dL Creatinine (0.66-1.25) mg/dL Glucose (74-99) mg/dL POC Glucose (mg/dL) 242 H 226 H 209 H (75-99) mg/dL Calcium (8.4-10.2) mg/dL Total Bilirubin (0.2-1.3) mg/dL Total Protein (6.3-8.2) g/dL Albumin (3.5-5.0) g/dL Crossmatch 04/01/19 04/01/19 04/01/19 Range/Units 16:03 17:02 18:04 WBC (3.8-10.6) k/uL RBC (4.30-5.90) m/uL Hgb (13.0-17.5) gm/dL Hct (39.0-53.0) % RDW (11.5-15.5) % Plt Count (150-450) k/uL Neutrophils # (1.3-7.7) k/uL Lymphocytes # (1.0-4.8) k/uL Monocytes # (0-1.0) k/uL Sodium (137-145) mmol/L Carbon Dioxide (22-30) mmol/L BUN (9-20) mg/dL Creatinine (0.66-1.25) mg/dL Glucose (74-99) mg/dL POC Glucose (mg/dL) 174 H 179 H 185 H (75-99) mg/dL Calcium (8.4-10.2) mg/dL Total Bilirubin (0.2-1.3) mg/dL Total Protein (6.3-8.2) g/dL Albumin (3.5-5.0) g/dL Crossmatch 04/01/19 04/01/19 04/01/19 Range/Units 19:07 20:18 21:21 WBC (3.8-10.6) k/uL RBC (4.30-5.90) m/uL Hgb (13.0-17.5) gm/dL Hct (39.0-53.0) % RDW (11.5-15.5) % Plt Count (150-450) k/uL Neutrophils # (1.3-7.7) k/uL Lymphocytes # (1.0-4.8) k/uL Monocytes # (0-1.0) k/uL Sodium (137-145) mmol/L Carbon Dioxide (22-30) mmol/L BUN (9-20) mg/dL Creatinine (0.66-1.25) mg/dL Glucose (74-99) mg/dL POC Glucose (mg/dL) 224 H 187 H 189 H (75-99) mg/dL Calcium (8.4-10.2) mg/dL Total Bilirubin (0.2-1.3) mg/dL Total Protein (6.3-8.2) g/dL Albumin (3.5-5.0) g/dL Crossmatch 04/01/19 04/01/19 04/02/19 Range/Units 22:18 23:04 02:10 WBC (3.8-10.6) k/uL RBC (4.30-5.90) m/uL Hgb (13.0-17.5) gm/dL Hct (39.0-53.0) % RDW (11.5-15.5) % Plt Count (150-450) k/uL Neutrophils # (1.3-7.7) k/uL Lymphocytes # (1.0-4.8) k/uL Monocytes # (0-1.0) k/uL Sodium (137-145) mmol/L Carbon Dioxide (22-30) mmol/L BUN (9-20) mg/dL Creatinine (0.66-1.25) mg/dL Glucose (74-99) mg/dL POC Glucose (mg/dL) 145 H 128 H 163 H (75-99) mg/dL Calcium (8.4-10.2) mg/dL Total Bilirubin (0.2-1.3) mg/dL Total Protein (6.3-8.2) g/dL Albumin (3.5-5.0) g/dL Crossmatch 04/02/19 04/02/19 04/02/19 Range/Units 03:00 04:08 04:52 WBC (3.8-10.6) k/uL RBC (4.30-5.90) m/uL Hgb (13.0-17.5) gm/dL Hct (39.0-53.0) % RDW (11.5-15.5) % Plt Count (150-450) k/uL Neutrophils # (1.3-7.7) k/uL Lymphocytes # (1.0-4.8) k/uL Monocytes # (0-1.0) k/uL Sodium (137-145) mmol/L Carbon Dioxide (22-30) mmol/L BUN (9-20) mg/dL Creatinine (0.66-1.25) mg/dL Glucose (74-99) mg/dL POC Glucose (mg/dL) 182 H 233 H 254 H (75-99) mg/dL Calcium (8.4-10.2) mg/dL Total Bilirubin (0.2-1.3) mg/dL Total Protein (6.3-8.2) g/dL Albumin (3.5-5.0) g/dL Crossmatch 04/02/19 04/02/19 04/02/19 Range/Units 05:17 05:17 06:19 WBC 12.0 H (3.8-10.6) k/uL RBC 2.51 L (4.30-5.90) m/uL Hgb 7.5 L (13.0-17.5) gm/dL Hct 22.6 L (39.0-53.0) % RDW 16.5 H (11.5-15.5) % Plt Count 104 L (150-450) k/uL Neutrophils # 11.1 H (1.3-7.7) k/uL Lymphocytes # 0.6 L (1.0-4.8) k/uL Monocytes # (0-1.0) k/uL Sodium 133 L (137-145) mmol/L Carbon Dioxide 17 L (22-30) mmol/L BUN 47 H (9-20) mg/dL Creatinine 2.59 H (0.66-1.25) mg/dL Glucose 227 H (74-99) mg/dL POC Glucose (mg/dL) 181 H (75-99) mg/dL Calcium 8.3 L (8.4-10.2) mg/dL Total Bilirubin 1.8 H (0.2-1.3) mg/dL Total Protein 5.0 L (6.3-8.2) g/dL Albumin 3.0 L (3.5-5.0) g/dL Crossmatch 04/02/19 Range/Units 06:51 WBC (3.8-10.6) k/uL RBC (4.30-5.90) m/uL Hgb (13.0-17.5) gm/dL Hct (39.0-53.0) % RDW (11.5-15.5) % Plt Count (150-450) k/uL Neutrophils # (1.3-7.7) k/uL Lymphocytes # (1.0-4.8) k/uL Monocytes # (0-1.0) k/uL Sodium (137-145) mmol/L Carbon Dioxide (22-30) mmol/L BUN (9-20) mg/dL Creatinine (0.66-1.25) mg/dL Glucose (74-99) mg/dL POC Glucose (mg/dL) 150 H (75-99) mg/dL Calcium (8.4-10.2) mg/dL Total Bilirubin (0.2-1.3) mg/dL Total Protein (6.3-8.2) g/dL Albumin (3.5-5.0) g/dL Crossmatch - Imaging and Cardiology Chest x-ray: report reviewed, image reviewed Assessment and Plan Assessment: 1. Triple-vessel coronary artery disease, status post 5 vessel CABG 2. History of coronary artery disease and myocardial infarction with multiple stents to the RCA and LAD 3. V. fib arrest after stenting in 2010 with placement of Medtronic ICD 4. Mild to moderate left ventricular dysfunction 5. Hypertension 6. Hyperlipidemia 7. Type 2 diabetes mellitus with hemoglobin A1c 7.3% 8. Chronic kidney disease stage III 9. Paroxysmal atrial fibrillation on chronic Eliquis for anticoagulation, currently in normal sinus rhythm, status post bilateral pulmonary vein isolation and left atrial appendage ligation 10. Mild COPD with preoperative FEV1 63% of predicted 11. SUSAN with home CPAP use 12. Obesity 13. Family history of heart disease 14. Postoperative acute blood loss anemia, status post transfusion 15. Postoperative thrombocytopenia Plan: 1. Continue aspirin, statin, Plavix and beta cely. Will increase his beta cely as tolerated. 2. Continue amiodarone for atrial fibrillation prophylaxis. 3. Wean O2 as tolerated. Encourage incentive spirometry is 10 times every hour while awake. 4. Bronchodilators per pulmonology management. 5. Increase activity as tolerated, PT/OT/cardiac rehab following. 6. Continue Norvasc 2.5 mg by mouth daily for radial artery spasm prophylaxis. Do not discontinue without discussing with cardiac surgery. 7. Keep Uribe for another 24 hours for strict accurate intake and output. Continue Flomax 0.4 milligrams daily. 8. GI/DVT prophylaxis 9. Insulin management per primary care service. Transition to subcu insulin. 10. Pain control with current medication regimen. Avoid Toradol due to his history of chronic kidney disease. 11. Discontinue Cordis, arterial line. 12. Avoid nephrotoxic agents due to his chronic kidney disease. 13. Continue to monitor daily labs and chest x-rays. Electrolyte replacement per protocol. No further transfusion. 14. Will place transfer orders for 3 S. cardiac stepdown unit. B transfer when bed available. 15. Discharge planning in progress. Dr. Haji consulted for possibility of inpatient rehab patient. 16. More recommendations to follow based on patient's clinical course. Time with Patient: Greater than 30
[2019-04-02 09:30] LABS: Glucose,Whole Blood 99 mg/dL (75-99)
[2019-04-02] MEDS: DICLOFENAC SODIUM GEL 100 GM TUBE TOPICAL SCH ×4 (10:11→21:04)
[2019-04-02 10:43] LABS: Glucose,Whole Blood 115 mg/dL (75-99)
[2019-04-02 11:32] LABS: Glucose,Whole Blood 128 mg/dL (75-99)
[2019-04-02] MEDS: LIDOCAINE 5% PATCH TOPICAL SCH (11:35)
[2019-04-02] MEDS: INSULIN ASPART (NovoLOG) 100 UNIT/ML VIAL SQ SCH ×5 (11:52→21:11)
[2019-04-02] MEDS ORDERED: ALBUMIN HUMAN 5% 250 ML in EMPTY BAG 1 BAG IVPB ONE ×2 (12:30→17:30)
[2019-04-02 12:34] LABS: Glucose,Whole Blood 111 mg/dL (75-99)
[2019-04-02] MEDS: DEXTROSE 5% IN WATER 100 ML with AMIODARONE 150 MG IV PRN ×2 (13:46→18:32)
[2019-04-02] MEDS ORDERED: ALBUMIN HUMAN 5% 250 ML in EMPTY BAG 1 BAG IVPB STA ×2 (13:59→16:28)
--- NOTE | 2019-04-02 13:59 | PN ---
PROGRESS NOTE Rafal is a 73-year-old gentleman who is admitted to hospital with multivessel coronary artery disease, underwent bypass surgery. This morning he looks tired, fatigued and somewhat sleepy. On exam, heart rate is 70 beats per minute. Blood pressure is 84/50, respirations 18. Chest exam reveals diminished air entry at the bases. Heart exam reveals first and second heart sounds. No gallop. No murmur. Abdomen is soft. Exam of the extremities revealed mild edema. Peripheral pulses are felt. Patient is currently on Norvasc 2.5 q. daily, aspirin, Lipitor, amiodarone 400 b.i.d., Lopressor 50 b.i.d. ASSESSMENT: 1. Coronary artery disease, status post coronary artery bypass grafting. 2. Postoperative atrial fibrillation. 3. Dyslipidemia. 4. Anemia. PLAN: Patient is making slow recovery. Hemoglobin was down to 6.7, following transfusion it is around 7.8. Continue current medications. I will decrease the dose of metoprolol to 25 b.i.d. given the hypotension. MMODL / IJN: [id number] /
--- NOTE | 2019-04-02 14:39 | P.PN ---
Subjective Progress Note Date: 04/02/19 Principal diagnosis: Coronary artery disease On 03/29/2019 patient seen in follow-up on selective care unit, he is awake and alert, in no acute distress, room air pulse ox is 96%, doing well, denies any chest pain, no fever or chills, hemodynamically stable. 9 any chest x-ray today, today's labs have been reviewed. No acute issues overnight, lung sounds are clear, patient is awaiting surgery bypass grafting by Dr. Hurst tomorrow on 03/30/2019. On 04/01/2019 patient may seen in follow-up in the intensive care unit. This is postop day 2 status post quadruple coronary artery bypass grafting using the RAMIREZ to LAD, left radial artery to the first up to his marginal coronary artery, reverse SVG to the diagonal, and a reverse SVG to the PDA and posterior lateral branch of the RCA. Patient also had the left atrial appendage exclusion with the 35mm a true clip and Intra-Op transesophageal echocardiogram and at the aortic scanning. Doing well, in no acute distress, he has been up ambulating, tolerating activity well, room air pulse ox is 97%, hemodynamically stable, no fever or chills, remains in sinus mechanism with a controlled rate. He is working on the incentive spirometer, he is achieving 500-750 ML, right IJ Cordis is in place, current CVP is 12 mmHg, mediastinal and left pleural chest tubes are in place, draining thin serosanguineous drainage. Patient has been up ambulating, with assistance, limited activity well. " Today 6.7, and patient did receive 1 unit of packed red blood cells this morning. His chest x-ray today, showed interval removal of the Hinton-Diana catheter, and a trace pleural effusions and bibasilar atelectasis. On 04/02/2019 patient seen in follow-up in the intensive care unit, he is complaining of some sacral pain today, he is sitting up in the recliner, and she is mild to moderate amount of discomfort from his lower back and sacral pain, currently on 2 L of oxygen and the pulse ox of 98%, this morning he did experience some hypotension, with a couple of episodes of systolic in the 60s to 80s, and patient is currently on metoprolol 50 mg twice daily, Norvasc 2-1/2 mg once daily, and oral amiodarone. His distal blockers were adjusted, and the dose was dropped down to 25 mg twice daily. She was transiently lightheaded and experienced some visual changes, his legs were reclined in his recliner, and small fluid bolus was given, and his blood pressure has recovered and is currently at 105/56, patient remains in sinus rhythm, with a rate in the 60s and 70s, but he is afebrile, she denies any difficulty breathing, he is working on incentive spirometer, today's chest x-ray has been reviewed showing pulmonary venous hypertension and interstitial edema, changes consistent with volume overload, but oxygenation is stable. His mediastinal and left pleural chest tube has been removed yesterday, lung sounds are clear, diminished at the bases. No infusing IVs. Urine output has diminished from 35-10 and 15 ML per hour this afternoon. Patient is getting additional volume in the form of albumin, so far he has received 750 mL of 5% albumin. Objective - Vital Signs Vital signs: Vital Signs Temp 97.6 F 04/02/19 12:00 Pulse 69 04/02/19 13:00 Resp 20 04/02/19 13:00 BP 105/56 04/02/19 13:00 Pulse Ox 98 04/02/19 13:00 Intake & Output 04/01/19 04/02/19 04/02/19 18:59 06:59 18:59 Intake Total 1172.075 455.930 690.134 Output Total 580 445 220 Balance 592.075 10.930 470.134 Weight 112.9 kg Intake: IV 312 297 169 0.9NS 60 Lactated Ringers 1,000 ml 240 240 100 @ 20 mls/hr IV .Q24H [facility] Rx#:[id number] Pressure Bag 72 57 9 Intake, IV Titration 310.075 158.930 521.134 Amount Albumin Human 5% 250 ml 250 In Empty Bag 1 bag @ 250 mls/hr IVPB ONCE ONE Rx#: [id number] Albumin Human 5% 250 ml 250 In Empty Bag 1 bag @ 250 mls/hr IVPB ONCE STA Rx#: [id number] Dextrose 5% in Water 100 200 ml @ 618 mls/hr IV .Q10M PRN with Amiodarone 150 mg Rx#:[id number] Insulin Regular 100 unit 110.075 158.930 21.134 In Sodium Chloride 0.9% 100 ml @ Per Protocol IV .Q0M [facility] Rx#:[id number] Oral 240 Blood Product 310 Rc As-1 Unit 310 [id number] Output: Chest Tube Drainage 40 Left Lateral Chest 10 Mediastinal 30 Urine 540 445 220 Other: Voiding Method Indwelling Catheter Indwelling Catheter Indwelling Catheter # Voids 0 # Bowel Movements 2 1 ABP, PAP, CO, CI - Last Documented Arterial Blood Pressure 116/50 Pulmonary Artery Pressure 28/11 Cardiac Output 7.4 Cardiac Index 3.4 - Exam GENERAL EXAM: Alert, pleasant, 73-year-old white male comfortable in no apparent distress. HEAD: Normocephalic/atraumatic. EYES: Normal reaction of pupils, equal size. Conjunctiva pink, sclera white. NOSE: Clear with pink turbinates. THROAT: No erythema or exudates. NECK: No masses, no JVD, no thyroid enlargement, no adenopathy. CHEST: No chest wall deformity. Symmetrical expansion. Midsternal incision, clean dry and intact, covered with dressing, interval removal of the mediastinal and left pleural chest tubes LUNGS: Equal air entry with no crackles, wheeze, rhonchi or dullness. CVS: Regular rate and rhythm, normal S1 and S2, no gallops, no murmurs, no rubs ABDOMEN: Soft, nontender. No hepatosplenomegaly, normal bowel sounds, no guarding or rigidity. EXTREMITIES: No clubbing, no edema, no cyanosis, 2+ pulses and upper and lower extremities. Bilateral lower extremities are luke wrapped, SCDs are on MUSCULOSKELETAL: Muscle strength and tone normal. SPINE: No scoliosis or deformity SKIN: No rashes CENTRAL NERVOUS SYSTEM: Alert and oriented -3. No focal deficits, tone is normal in all 4 extremities. PSYCHIATRIC: Alert and oriented -3. Appropriate affect. Intact judgment and insight. - Labs CBC & Chem 7: 04/02/19 05:17 04/02/19 05:17 Labs: Abnormal Lab Results - Last 24 Hours (Table) 04/01/19 04/01/19 04/01/19 Range/Units 15:11 16:03 17:02 WBC (3.8-10.6) k/uL RBC (4.30-5.90) m/uL Hgb (13.0-17.5) gm/dL Hct (39.0-53.0) % RDW (11.5-15.5) % Plt Count (150-450) k/uL Neutrophils # (1.3-7.7) k/uL Lymphocytes # (1.0-4.8) k/uL Sodium (137-145) mmol/L Carbon Dioxide (22-30) mmol/L BUN (9-20) mg/dL Creatinine (0.66-1.25) mg/dL Glucose (74-99) mg/dL POC Glucose (mg/dL) 209 H 174 H 179 H (75-99) mg/dL Calcium (8.4-10.2) mg/dL Total Bilirubin (0.2-1.3) mg/dL Total Protein (6.3-8.2) g/dL Albumin (3.5-5.0) g/dL 04/01/19 04/01/19 04/01/19 Range/Units 18:04 19:07 20:18 WBC (3.8-10.6) k/uL RBC (4.30-5.90) m/uL Hgb (13.0-17.5) gm/dL Hct (39.0-53.0) % RDW (11.5-15.5) % Plt Count (150-450) k/uL Neutrophils # (1.3-7.7) k/uL Lymphocytes # (1.0-4.8) k/uL Sodium (137-145) mmol/L Carbon Dioxide (22-30) mmol/L BUN (9-20) mg/dL Creatinine (0.66-1.25) mg/dL Glucose (74-99) mg/dL POC Glucose (mg/dL) 185 H 224 H 187 H (75-99) mg/dL Calcium (8.4-10.2) mg/dL Total Bilirubin (0.2-1.3) mg/dL Total Protein (6.3-8.2) g/dL Albumin (3.5-5.0) g/dL 04/01/19 04/01/19 04/01/19 Range/Units 21:21 22:18 23:04 WBC (3.8-10.6) k/uL RBC (4.30-5.90) m/uL Hgb (13.0-17.5) gm/dL Hct (39.0-53.0) % RDW (11.5-15.5) % Plt Count (150-450) k/uL Neutrophils # (1.3-7.7) k/uL Lymphocytes # (1.0-4.8) k/uL Sodium (137-145) mmol/L Carbon Dioxide (22-30) mmol/L BUN (9-20) mg/dL Creatinine (0.66-1.25) mg/dL Glucose (74-99) mg/dL POC Glucose (mg/dL) 189 H 145 H 128 H (75-99) mg/dL Calcium (8.4-10.2) mg/dL Total Bilirubin (0.2-1.3) mg/dL Total Protein (6.3-8.2) g/dL Albumin (3.5-5.0) g/dL 04/02/19 04/02/19 04/02/19 Range/Units 02:10 03:00 04:08 WBC (3.8-10.6) k/uL RBC (4.30-5.90) m/uL Hgb (13.0-17.5) gm/dL Hct (39.0-53.0) % RDW (11.5-15.5) % Plt Count (150-450) k/uL Neutrophils # (1.3-7.7) k/uL Lymphocytes # (1.0-4.8) k/uL Sodium (137-145) mmol/L Carbon Dioxide (22-30) mmol/L BUN (9-20) mg/dL Creatinine (0.66-1.25) mg/dL Glucose (74-99) mg/dL POC Glucose (mg/dL) 163 H 182 H 233 H (75-99) mg/dL Calcium (8.4-10.2) mg/dL Total Bilirubin (0.2-1.3) mg/dL Total Protein (6.3-8.2) g/dL Albumin (3.5-5.0) g/dL 04/02/19 04/02/19 04/02/19 Range/Units 04:52 05:17 05:17 WBC 12.0 H (3.8-10.6) k/uL RBC 2.51 L (4.30-5.90) m/uL Hgb 7.5 L (13.0-17.5) gm/dL Hct 22.6 L (39.0-53.0) % RDW 16.5 H (11.5-15.5) % Plt Count 104 L (150-450) k/uL Neutrophils # 11.1 H (1.3-7.7) k/uL Lymphocytes # 0.6 L (1.0-4.8) k/uL Sodium 133 L (137-145) mmol/L Carbon Dioxide 17 L (22-30) mmol/L BUN 47 H (9-20) mg/dL Creatinine 2.59 H (0.66-1.25) mg/dL Glucose 227 H (74-99) mg/dL POC Glucose (mg/dL) 254 H (75-99) mg/dL Calcium 8.3 L (8.4-10.2) mg/dL Total Bilirubin 1.8 H (0.2-1.3) mg/dL Total Protein 5.0 L (6.3-8.2) g/dL Albumin 3.0 L (3.5-5.0) g/dL 04/02/19 04/02/19 04/02/19 Range/Units 06:19 06:51 10:41 WBC (3.8-10.6) k/uL RBC (4.30-5.90) m/uL Hgb (13.0-17.5) gm/dL Hct (39.0-53.0) % RDW (11.5-15.5) % Plt Count (150-450) k/uL Neutrophils # (1.3-7.7) k/uL Lymphocytes # (1.0-4.8) k/uL Sodium (137-145) mmol/L Carbon Dioxide (22-30) mmol/L BUN (9-20) mg/dL Creatinine (0.66-1.25) mg/dL Glucose (74-99) mg/dL POC Glucose (mg/dL) 181 H 150 H 115 H (75-99) mg/dL Calcium (8.4-10.2) mg/dL Total Bilirubin (0.2-1.3) mg/dL Total Protein (6.3-8.2) g/dL Albumin (3.5-5.0) g/dL 04/02/19 04/02/19 Range/Units 11:30 12:32 WBC (3.8-10.6) k/uL RBC (4.30-5.90) m/uL Hgb (13.0-17.5) gm/dL Hct (39.0-53.0) % RDW (11.5-15.5) % Plt Count (150-450) k/uL Neutrophils # (1.3-7.7) k/uL Lymphocytes # (1.0-4.8) k/uL Sodium (137-145) mmol/L Carbon Dioxide (22-30) mmol/L BUN (9-20) mg/dL Creatinine (0.66-1.25) mg/dL Glucose (74-99) mg/dL POC Glucose (mg/dL) 128 H 111 H (75-99) mg/dL Calcium (8.4-10.2) mg/dL Total Bilirubin (0.2-1.3) mg/dL Total Protein (6.3-8.2) g/dL Albumin (3.5-5.0) g/dL Assessment and Plan Plan: Assessment: #1 Coronary artery disease with significant disease involving the proximal LAD and left main, status post quadruple coronary artery bypass grafting surgery using the RAMIREZ to LAD, left radial artery to the first OM, reverse SVG to the diagonal, reverse SVG to the PDA and posterior lateral branch of the right coronary artery, bilateral pulmonary vein isolation using bipolar radiofrequency and exclusion of the left atrial appendage using that and she'll clip and intraoperative transesophageal echocardiogram, postoperative day 3 #2 postoperative acute blood loss anemia, an expected outcome of cardiopulmonary bypass and revascularization surgery #3 thrombocytopenia, and expected outcome of cardiopulmonary bypass and revascularization surgery #4 history of atrial fibrillation, currently in sinus rhythm #5 Previous history of coronary artery disease with stent placement #6 Ischemic cardiomyopathy and ventricular tachycardia status post AICD placement. #7 History of atrial fibrillation. #8 Chronic bronchitis, currently inactive and stable. FEV1 value 63% of predicted. Patient also has a component of restrictive lung disease, with FEV1 to FVC ratio of 101% of predicted #9 Hyperlipidemia. #10 Hypertension. #11 History of pulmonary embolism. #12 Obstructive sleep apnea utilizing CPAP. 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 #14 Diabetes mellitus. #15 Peripheral neuropathy. #16 History of gout. Plan: Continue encouraging deep breathing and coughing, patient experienced hy potension this morning, he is getting additional volume, and his antihypertensives have been adjusted per CT surgery and cardiology, is in sinus rhythm, chest tubes have been discontinued, his chest x-ray has been reviewed, showing small pleural effusions, and interstitial prominence changes consistent with volume overload, but oxygenation remained stable. Maintain pain control and lidocaine patch has been reordered for patient's lower back pain. We'll continue to follow, continue close hemodynamic monitoring. I performed a history & physical examination of the patient and discussed their management with my nurse practitioner, Jyothi Green. I reviewed the nurse practitioner's note and agree with the documented findings and plan of care. Lung sounds are positive for clear breath sounds. The findings and the impression was discussed with the patient. I attest to the documentation by the nurse practitioner. Time with Patient: Less than 30
[2019-04-02] MEDS ORDERED: MIDODRINE 5 MG TAB PO STA (14:53)
[2019-04-02] MEDS: COLCHICINE 0.6 MG EACH PO SCH (15:09)
--- NOTE | 2019-04-02 15:11 | P.PN ---
Subjective Progress Note Date: 04/02/19 This is a 73-year-old male patient of Dr. Guevara with past medical history for coronary artery disease, paroxysmal atrial fibrillation on eliquis, diabetes mellitus type II insulin requiring with diabetic neuropathy, chronic kidney disease, kidney stones, COPD, obstructive sleep apnea with CPAP, hyperlipidemia, hypertension, and rheumatoid arthritis and cirrhotic arthritis, gout, benign prostatic hypertrophy. His primary care physician is Dr. Guevara he follows with Dr. SANAM Hinds as his public health policy analyst. He had a heart catheterization done in 2005 that showed moderate disease involving the LAD and diagonal was mild involvement patient had some irregular lesion of the circumflex. He was seen at [facility] for chest pain and non-ST elevated VT 2010. At that time, his heart catheterization revealed an acutely occluded right coronary artery, significant disease in the moderate size third obtuse marginal branch with moderate disease in the LAD and left circumflex. Ejection fraction was 3540 percent. He underwent successful stenting of the distal RCA. Later in his room, patient developed ventricular fibrillation and was quickly resuscitated and underwent heart catheterization and underwent angioplasty and stenting of the PLV branch of the right coronary artery. On 09/14/2010, patient underwent a single chamber cardioverter defibrillator implantation. His echoca rdiogram revealed mild pulmonary hypertension, ejection fraction 40% at that time. In 2014 he underwent heart catheterization finding 45% proximal right coronary artery stenosis and significant mid LAD lesion which underwent PTCA and stenting of the mid LAD. Patient's also gives history of a septic knee joint needing washout which was done at [facility] at that time patient developed atrial fibrillation in the postop period. He also had a run of V. tach for which his AICD fired. Ever since that episode of sepsis, patient has had chronic kidney disease. Regarding his diabetes, he follows with Dr. Yoanna Mccormick. He is currently on Trulicity 1.5mg weekly, Lantus 56 units in the morning and recently changed to 18 units of NovoLog with meals. His last hemoglobin A1c was 7.4 in December at the [facility]. Regarding rheumatoid arthritis and psoriatic arthritis, patient follows with Dr. Shelton. In the past he has been on methotrexate, Enbrel and Humira. He was recently on Ilaris but this was stopped when he started having cardiac problems as there is concern for arrhythmia. He contacted his marketing developer and she had recommended stopping it. The patient have follow-up in the cardiology office in December of this year and underwent a Lexiscan stress test that did not demonstrate any ischemia. Over the past 3-4 weeks she has had intermittent substernal chest pain with radiation to his arms. He was recommended for heart catheterization which was completed yesterday that found proximal LAD stenosis 60%, mid LAD stenosis 30%, circumflex stenosis 90% and RCA stenosis 60. Cardiothoracic surgery was consulted for recommendations regarding CABG versus stenting. Carotid ultrasound revealed mild plaque bilateral bifurcations but no significant stenosis. Chest x-ray reveals no acute cardiopulmonary process. Underlying COPD. patient has been evaluated by cardiothoracic surgery. Plan for tomorrow is a repeat heart catheterization to further evaluate LAD. 03/26: Patient underwent heart catheterization today with Dr. SANAM Hinds finding significant lesion in the proximal LAD and area of 2.6 mm2 also within the left main and heavy circumferential desiccation lesion in the area of 3.2 mm2. Both were deemed significant and requires bypass surgery. The patient is seen today while in the recovery area. He denies having any chest pain or shortness of breath at this time. Blood sugars will need to be well-controlled and we will make arrangements for Levemir to be 30 units in the morning and 40 at bedtime. 03/27: The patient complains of nasal congestion since he had his procedure yesterday. We will add Flonase. Regarding blood sugars nighttime blood sugar remains quite elevated and we will make additional changes to his insulins by adding NovoLog scheduled 3 units with each meal and increase nighttime Levemir to 45 units. He is scheduled for open heart on Saturday. 03/28: Patient is resting comfortably in bed without any acute distress. Patient has no complaints at this time. Patient did not receive his Levemir last night due to his blood sugar being 112. Patient's blood sugar was elevated in 150s this morning due to missing the dose of Levemir. Patient is scheduled for open heart surgery on Saturday. 03/29: Patient is sitting up in bed with at the bedside. Patient is in no acute distress. Patient has no complaints or concerns at this time. He slept well last night. Patient was given his Levemir last night his blood sugar this morning was 120. Patient is waiting to have open heart surgery on Saturday. Questions were answered. 03/30: Patient will be going for open heart surgery today we will be back in ICU on the respirator and insulin drip. 03/31: Patient is off mechanical ventilation sitting in his chair less pain and discomfort still have chest tube complaining of mild chest pain from his surgery but no other major complaint. 04/01: Patient is doing much better most of his tube out's 1 getting catheter was removed, blood sugar is much better pulse rate is running in the 60s and 70s, patient is hemodynamically stable no transfusion done last 24 hours. 04/02: Blood sugars are stable but he is still on insulin drip which we will transition to Levemir 40 units this morning, discontinue the insulin drip, start NovoLog 10 units with meals along with scale every 4 hours. Patient is complaining of back pain and neck pain. He has been tried on Lidoderm cream without improvement and now lidocaine patch. We will add in baclofen as needed. All chest tubes and Cordis out today. Uribe catheter remained for retention and patient has been started back on Flomax. In place for Dr. Haji. Patient encouraged to increase ambulation. Objective - Vital Signs Vital signs: Vital Signs Temp 97.6 F 04/02/19 08:00 Pulse 87 04/02/19 09:00 Resp 24 04/02/19 09:00 BP 103/65 04/02/19 09:00 Pulse Ox 96 04/02/19 09:00 Intake & Output 04/01/19 04/02/19 04/02/19 18:59 06:59 18:59 Intake Total 1172.075 455.930 90.134 Output Total 580 445 115 Balance 592.075 10.930 -24.866 Weight 112.9 kg Intake: IV 312 297 69 Lactated Ringers 1,000 ml 240 240 60 @ 20 mls/hr IV .Q24H ALBINO Rx#:[id number] Pressure Bag 72 57 9 Intake, IV Titration 310.075 158.930 21.134 Amount Dextrose 5% in Water 100 200 ml @ 618 mls/hr IV .Q10M PRN with Amiodarone 150 mg Rx#:[id number] Insulin Regular 100 unit 110.075 158.930 21.134 In Sodium Chloride 0.9% 100 ml @ Per Protocol IV .Q0M ALBINO Rx#:[id number] Oral 240 Blood Product 310 Rc As-1 Unit 310 [id number] Output: Chest Tube Drainage 40 Left Lateral Chest 10 Mediastinal 30 Urine 540 445 115 Other: Voiding Method Indwelling Catheter Indwelling Catheter # Voids 0 # Bowel Movements 2 1 ABP, PAP, CO, CI - Last Documented Arterial Blood Pressure 116/50 Pulmonary Artery Pressure 28/11 Cardiac Output 7.4 Cardiac Index 3.4 - Exam - Exam CONSTITUTIONAL: Overweight no acute respiratory distress. EYES: No icterus sclerae, no conjunctivitis. EARS, NOSE, MOUTH, THROAT, and FACE: No sore throat, lymphadenopathy, carotid bruits or deformity. RESPIRATORY: Mild shortness of breath no cough wheezes. CARDIOVASCULAR: Positive chest pain and angina with mild shortness of breath positive PND and orthopnea. GASTROINTESTINAL: No Abd pain, Nausea or vomiting, no Diarrhea or constipation, No GI Bleed, no distention or masses. GENITOURINARY: Negative for Hematuria or UTI, no kidney stones. INTEGUMENT/BREAST: Negative for any muscular injury with mild osteoarthritis.. HEMATOLOGIC/LYMPHATIC: Negative for bleed or purpura. MUSCULOSKELTAL: Multiple muscle and tendon involvement generalized arthralgia and myalgia. Reports neck pain. Reports lumbar back pain NEURLOGICAL: No LOC, Sz or syncope, blurred vision dizziness or abnormality. BEHAVIORAL/PSYCH: Negative. ENDOCRINE: Negative. General Appearance: Alert, cooperative, no distress, appears stated age. is at bedside. Neck HEENT: Supple, no lymphadenopathy, no thyroid enlargement, no carotid bruits. Lungs: Decrease breath some bilateral. Chest Wall: Incision from his surgery with dressing in place Heart: Irregular rate and rhythm, S1, S2 normal, no murmur, rub or gallop. Back: Symmetric, no curvature, ROM normal, no CVA tenderness. Abdomen: Soft, non-tender, bowel sounds active all four quadrants, no masses, no organomegaly. Uribe catheter draining clear harvinder urine Extremities: Trace edema all multiple joint involvement with RA.. Pulses: 2+ and symmetric. Skin: Skin color, texture, tugor normal, no rashes or lesions. Neurologic: Alert oriented x3 cranial nerves II through XII intact, no motor deficit, no abnormal balance or gait. - Labs CBC & Chem 7: 04/02/19 05:17 04/02/19 05:17 Labs: Abnormal Lab Results - Last 24 Hours (Table) 04/01/19 04/01/19 04/01/19 Range/Units 10:31 11:19 12:00 WBC (3.8-10.6) k/uL RBC (4.30-5.90) m/uL Hgb (13.0-17.5) gm/dL Hct (39.0-53.0) % RDW (11.5-15.5) % Plt Count (150-450) k/uL Neutrophils # (1.3-7.7) k/uL Lymphocytes # (1.0-4.8) k/uL Monocytes # (0-1.0) k/uL Sodium (137-145) mmol/L Carbon Dioxide (22-30) mmol/L BUN (9-20) mg/dL Creatinine (0.66-1.25) mg/dL Glucose (74-99) mg/dL POC Glucose (mg/dL) 124 H 111 H 158 H (75-99) mg/dL Calcium (8.4-10.2) mg/dL Total Bilirubin (0.2-1.3) mg/dL Total Protein (6.3-8.2) g/dL Albumin (3.5-5.0) g/dL 04/01/19 04/01/19 04/01/19 Range/Units 12:03 13:17 14:24 WBC 10.9 H (3.8-10.6) k/uL RBC 2.65 L (4.30-5.90) m/uL Hgb 7.8 L (13.0-17.5) gm/dL Hct 23.3 L (39.0-53.0) % RDW 16.3 H (11.5-15.5) % Plt Count 101 L D (150-450) k/uL Neutrophils # 8.5 H (1.3-7.7) k/uL Lymphocytes # (1.0-4.8) k/uL Monocytes # 1.1 H (0-1.0) k/uL Sodium (137-145) mmol/L Carbon Dioxide (22-30) mmol/L BUN (9-20) mg/dL Creatinine (0.66-1.25) mg/dL Glucose (74-99) mg/dL POC Glucose (mg/dL) 242 H 226 H (75-99) mg/dL Calcium (8.4-10.2) mg/dL Total Bilirubin (0.2-1.3) mg/dL Total Protein (6.3-8.2) g/dL Albumin (3.5-5.0) g/dL 04/01/19 04/01/19 04/01/19 Range/Units 15:11 16:03 17:02 WBC (3.8-10.6) k/uL RBC (4.30-5.90) m/uL Hgb (13.0-17.5) gm/dL Hct (39.0-53.0) % RDW (11.5-15.5) % Plt Count (150-450) k/uL Neutrophils # (1.3-7.7) k/uL Lymphocytes # (1.0-4.8) k/uL Monocytes # (0-1.0) k/uL Sodium (137-145) mmol/L Carbon Dioxide (22-30) mmol/L BUN (9-20) mg/dL Creatinine (0.66-1.25) mg/dL Glucose (74-99) mg/dL POC Glucose (mg/dL) 209 H 174 H 179 H (75-99) mg/dL Calcium (8.4-10.2) mg/dL Total Bilirubin (0.2-1.3) mg/dL Total Protein (6.3-8.2) g/dL Albumin (3.5-5.0) g/dL 04/01/19 04/01/19 04/01/19 Range/Units 18:04 19:07 20:18 WBC (3.8-10.6) k/uL RBC (4.30-5.90) m/uL Hgb (13.0-17.5) gm/dL Hct (39.0-53.0) % RDW (11.5-15.5) % Plt Count (150-450) k/uL Neutrophils # (1.3-7.7) k/uL Lymphocytes # (1.0-4.8) k/uL Monocytes # (0-1.0) k/uL Sodium (137-145) mmol/L Carbon Dioxide (22-30) mmol/L BUN (9-20) mg/dL Creatinine (0.66-1.25) mg/dL Glucose (74-99) mg/dL POC Glucose (mg/dL) 185 H 224 H 187 H (75-99) mg/dL Calcium (8.4-10.2) mg/dL Total Bilirubin (0.2-1.3) mg/dL Total Protein (6.3-8.2) g/dL Albumin (3.5-5.0) g/dL 04/01/19 04/01/19 04/01/19 Range/Units 21:21 22:18 23:04 WBC (3.8-10.6) k/uL RBC (4.30-5.90) m/uL Hgb (13.0-17.5) gm/dL Hct (39.0-53.0) % RDW (11.5-15.5) % Plt Count (150-450) k/uL Neutrophils # (1.3-7.7) k/uL Lymphocytes # (1.0-4.8) k/uL Monocytes # (0-1.0) k/uL Sodium (137-145) mmol/L Carbon Dioxide (22-30) mmol/L BUN (9-20) mg/dL Creatinine (0.66-1.25) mg/dL Glucose (74-99) mg/dL POC Glucose (mg/dL) 189 H 145 H 128 H (75-99) mg/dL Calcium (8.4-10.2) mg/dL Total Bilirubin (0.2-1.3) mg/dL Total Protein (6.3-8.2) g/dL Albumin (3.5-5.0) g/dL 04/02/19 04/02/19 04/02/19 Range/Units 02:10 03:00 04:08 WBC (3.8-10.6) k/uL RBC (4.30-5.90) m/uL Hgb (13.0-17.5) gm/dL Hct (39.0-53.0) % RDW (11.5-15.5) % Plt Count (150-450) k/uL Neutrophils # (1.3-7.7) k/uL Lymphocytes # (1.0-4.8) k/uL Monocytes # (0-1.0) k/uL Sodium (137-145) mmol/L Carbon Dioxide (22-30) mmol/L BUN (9-20) mg/dL Creatinine (0.66-1.25) mg/dL Glucose (74-99) mg/dL POC Glucose (mg/dL) 163 H 182 H 233 H (75-99) mg/dL Calcium (8.4-10.2) mg/dL Total Bilirubin (0.2-1.3) mg/dL Total Protein (6.3-8.2) g/dL Albumin (3.5-5.0) g/dL 04/02/19 04/02/19 04/02/19 Range/Units 04:52 05:17 05:17 WBC 12.0 H (3.8-10.6) k/uL RBC 2.51 L (4.30-5.90) m/uL Hgb 7.5 L (13.0-17.5) gm/dL Hct 22.6 L (39.0-53.0) % RDW 16.5 H (11.5-15.5) % Plt Count 104 L (150-450) k/uL Neutrophils # 11.1 H (1.3-7.7) k/uL Lymphocytes # 0.6 L (1.0-4.8) k/uL Monocytes # (0-1.0) k/uL Sodium 133 L (137-145) mmol/L Carbon Dioxide 17 L (22-30) mmol/L BUN 47 H (9-20) mg/dL Creatinine 2.59 H (0.66-1.25) mg/dL Glucose 227 H (74-99) mg/dL POC Glucose (mg/dL) 254 H (75-99) mg/dL Calcium 8.3 L (8.4-10.2) mg/dL Total Bilirubin 1.8 H (0.2-1.3) mg/dL Total Protein 5.0 L (6.3-8.2) g/dL Albumin 3.0 L (3.5-5.0) g/dL 04/02/19 04/02/19 Range/Units 06:19 06:51 WBC (3.8-10.6) k/uL RBC (4.30-5.90) m/uL Hgb (13.0-17.5) gm/dL Hct (39.0-53.0) % RDW (11.5-15.5) % Plt Count (150-450) k/uL Neutrophils # (1.3-7.7) k/uL Lymphocytes # (1.0-4.8) k/uL Monocytes # (0-1.0) k/uL Sodium (137-145) mmol/L Carbon Dioxide (22-30) mmol/L BUN (9-20) mg/dL Creatinine (0.66-1.25) mg/dL Glucose (74-99) mg/dL POC Glucose (mg/dL) 181 H 150 H (75-99) mg/dL Calcium (8.4-10.2) mg/dL Total Bilirubin (0.2-1.3) mg/dL Total Protein (6.3-8.2) g/dL Albumin (3.5-5.0) g/dL Assessment and Plan Plan: 1. Triple-vessel coronary artery disease: Post 5 vessel bypass surgery successfully, came off mechanical ventilation doing well so far. 2. History of non-ST elevated myocardial infarction, coronary artery disease and multiple stents. Just had 5 vessel bypass surgery and doing well in his recovery so far 3. Diabetes mellitus type 2 with end organ damage: Patient is doing well on insulin will be on insulin drip after surgery. Plan to transition with Levemir 40 units this morning, discontinue the insulin drip, start NovoLog 10 units with meals along with scale every 4 hours.. 4. Paroxysmal atrial fibrillation. Start him back on Eliquis whenever okay by cardiothoracic 5. Hypertension. Continue Lopressor, amlodipine. 6. Hyperlipidemia. Continue atorvastatin 40 mg daily 7. Chronic kidney disease. Monitor renal function and avoid nephrotoxic agents. 8. Obstructive sleep apnea with home CPAP. 9. Mechanical ventilation post CABG: Doing very well off mechanical ventilation still on O2 pulse ox running in the 90s. 10. History of ventricular tachycardia and cardiomyopathy status post AICD, stable 11. Gastroesophageal reflux disease. Continue Protonix 12. Acute kidney injury with chronic kidney disease stage 3. Avoid nephrotoxic agents. 13. Benign prostatic hypertrophy. Continue Flomax. Discharge plan: Most likely subacute rehab or inpatient rehab. Consult with Dr. Haji Impression and plan of care have been directed as dictated by the signing physician. Leigh Bailey nurse practitioner acting as scribe for signing physician.
[2019-04-02 15:49] LABS: Glucose,Whole Blood 195 mg/dL (75-99)
[2019-04-02] MEDS ORDERED: ALBUMIN HUMAN 5% 500 ML in EMPTY BAG 1 BAG IVPB STA (16:05)
[2019-04-02] MEDS: BACLOFEN 10 MG TAB PO PRN (16:42)
[2019-04-02 17:12] LABS: Glucose,Whole Blood 222 mg/dL (75-99)
[2019-04-02 20:15] LABS: Anisocytosis Slight; Basophils % (A) 0 %; Eosinophils % (A) 0 %; HCT 22.5 % (39.0-53.0); HGB 7.2 gm/dL (13.0-17.5); Lymphocytes # (A) 0.7 k/uL (1.0-4.8); Lymphocytes % (A) 6 %; MCH 29.5 pg (25.0-35.0); MCHC 32.2 g/dL (31.0-37.0); MCV 91.8 fL (80.0-100.0); Mean Platelet Volume 8.7; Monocytes # (A) 0.7 k/uL (0-1.0); Monocytes % (A) 6 %; Neutrophils # (A) 9.4 k/uL (1.3-7.7); Neutrophils % (A) 85 %; Platelet Count 107 k/uL (150-450); Poikilocytosis Slight; RBC 2.45 m/uL (4.30-5.90); RDW 16.3 % (11.5-15.5); WBC 11.1 k/uL (3.8-10.6)
[2019-04-02 21:00] LABS: Glucose,Whole Blood 226 mg/dL (75-99)
[2019-04-02] MEDS: METOPROLOL TARTRATE 25 MG TAB PO SCH (21:05)
[2019-04-02] MEDS: SENNOSIDES-DOCUSATE SODIUM 1 EACH TAB PO SCH (21:05)
[2019-04-02] MEDS: ALLOPURINOL 100 MG TAB PO SCH (21:46)
[2019-04-03] MEDS: HEPARIN SODIUM,PORCINE 5,000 UNIT/ML 1 ML VIAL SQ SCH ×3 (00:02→16:04)
[2019-04-03 00:07] LABS: Glucose,Whole Blood 201 mg/dL (75-99)
[2019-04-03] MEDS: INSULIN ASPART (NovoLOG) 100 UNIT/ML VIAL SQ SCH ×8 (00:12→20:51)
[2019-04-03 02:06] LABS: Glucose,Whole Blood 190 mg/dL (75-99)
[2019-04-03 05:58] LABS: Anisocytosis Slight; HCT 25.4 % (39.0-53.0); HGB 8.4 gm/dL (13.0-17.5); Hypochromasia Slight; MCH 30.3 pg (25.0-35.0); MCHC 33.2 g/dL (31.0-37.0); MCV 91.4 fL (80.0-100.0); Mean Platelet Volume 7.5; Platelet Count 127 k/uL (150-450); Poikilocytosis Slight; RBC 2.78 m/uL (4.30-5.90); RDW 16.5 % (11.5-15.5); WBC 15.9 k/uL (3.8-10.6)
[2019-04-03 06:08] LABS: Albumin 3.5 g/dL (3.5-5.0); Calcium 8.6 mg/dL (8.4-10.2); Potassium 4.8 mmol/L (3.5-5.1); Total Bilirubin 1.4 mg/dL (0.2-1.3); Total Protein 5.7 g/dL (6.3-8.2)
[2019-04-03] MEDS ORDERED: INSULIN DETEMIR (LEVEMIR) 100 UNIT/ML SYR SQ SCH ×2 (07:00)
[2019-04-03] MEDS ORDERED: INSULIN ASPART (NovoLOG) 100 UNIT/ML VIAL SQ SCH (07:30)
--- NOTE | 2019-04-03 07:37 | XR ---
EXAMINATION TYPE: XR chest 2V DATE OF EXAM: 04/03/2019 COMPARISON: 04/02/2019 HISTORY: Post cardiac surgery. Follow-up exam. TECHNIQUE: Frontal and lateral views of the chest are obtained. FINDINGS: Cardiomediastinal silhouette is enlarged with increased widening of the superior mediastin um in comparison to the prior. Single lead left-sided cardiac device is seen with post CABG changes o f the chest. Trace pleural effusions are present with bibasilar airspace disease. Central vascular co ngestion is unchanged. IMPRESSION: 1. Increase in degree of superior mediastinal widening, possibly related to vascular congestion. Atte ntion on follow-up exam. 2. Trace pleural effusions, central vascular congestion, and bibasilar airspace disease (likely atele ctasis) is unchanged from the prior of 04/02/2019.
[2019-04-03 07:51] LABS: Glucose,Whole Blood 211 mg/dL (75-99)
[2019-04-03] MEDS: LIDOCAINE 5% PATCH TOPICAL SCH (08:16)
[2019-04-03] MEDS: DICLOFENAC SODIUM GEL 100 GM TUBE TOPICAL SCH (08:21)
[2019-04-03] MEDS: ATORVASTATIN 40 MG TAB PO SCH (08:22)
[2019-04-03] MEDS: ALLOPURINOL 100 MG TAB PO SCH ×2 (08:22→21:03)
[2019-04-03] MEDS: ASPIRIN 325 MG TAB PO SCH (08:22)
[2019-04-03] MEDS: COLCHICINE 0.6 MG EACH PO SCH (08:23)
[2019-04-03] MEDS: PANTOPRAZOLE 40 MG TABLET PO SCH (08:31)
[2019-04-03] MEDS: CLOPIDOGREL 75 MG TAB PO SCH (08:31)
[2019-04-03] MEDS ORDERED: FUROSEMIDE 10 MG/ML 10 ML VIAL IV STA (08:35)
[2019-04-03] MEDS: IPRATROPIUM-ALBUTEROL 3 ML NEB INHALATION SCH ×4 (08:35→20:39)
[2019-04-03] MEDS: AMIODARONE 200 MG TAB PO SCH ×2 (08:37→21:03)
[2019-04-03] MEDS: METOPROLOL TARTRATE 25 MG TAB PO SCH ×2 (08:37→21:03)
--- NOTE | 2019-04-03 08:47 | P.PN ---
Subjective Progress Note Date: 04/03/19 Principal diagnosis: Triple-vessel coronary artery disease. Previous medical history of coronary artery disease and myocardial infarction with multiple stents to his right coronary artery and left anterior descending coronary artery, ventricular fibrillation arrest after stenting in 2010 with placement of Medtronic AICD, mild to moderate left ventricular dysfunction, hypertension, hyperlipidemia, chronic kidney disease stage III with a baseline creatinine of 1.7, diabetes aynni litus type 2 with hemoglobin A1c 7.3%, paroxysmal atrial fibrillation on chronic Eliquis for anticoagulation, mild chronic obstructive pulmonary disease with preoperative FEV1 63% of predicted, morbid obesity, obstructive sleep apnea with home CPAP use and family history of heart disease. POD #4 quintuple coronary artery bypass grafting using the left internal mammary artery to the left anterior descending coronary artery, left radial artery from the aorta to the first obtuse marginal coronary artery, reverse greater saphenous vein graft from the aorta to the diagonal coronary artery, reverse greater saphenous vein graft from the aorta to the posterior descending coronary artery, and reverse greater saphenous vein graft from aorta to the posterior lateral branch of the right coronary artery. Bilateral pulmonary vein isolation using the bipolar radiofrequency energy by Atricure, exclusion of the left atrial appendage using a 35 mm Atriclip, endoscopic left radial artery harvest, endoscopic harvesting of the left greater saphenous vein from the groin to above the ankle level and right greater saphenous vein from the groin to below the knee level, intraoperative graft flow measurements using the Medistim system, intraoperative transesophageal echocardiogram and epi-aortic scanning. Postoperative acute blood loss anemia, expected outcome due to hemodilution and cardiopulmonary bypass. Postoperative thrombocytopenia, expected outcome due to his preoperative thrombocytopenia and hemodilution. Postoperative controlled atrial fibrillation, expected due to his history of paroxysmal atrial fibrillation and known potential outcome from cardiac surgery Postoperative acute on chronic kidney disease, unexpected but potential outcome due to his baseline chronic kidney disease along with borderline hypotension The patient is currently sitting up in the recliner in the intensive care unit in no acute distress. Does complain of lower back pain which is a little better since addition of Lidoderm patch, denies chest pain, denies shortness of breath. Patient requires a lot of motivation to cough and deep breathe. Patient's blood pressure, urine output has been marginal since yesterday despite IV fluid boluses and single dose of Midodrine. Lopressor dose lowered. Patient did go into controlled afib yesterday. No new concerns. Objective - Vital Signs Vital signs: Vital Signs Temp 98.5 F 04/03/19 04:00 Pulse 89 04/03/19 08:00 Resp 22 04/03/19 08:00 BP 105/61 04/03/19 08:00 Pulse Ox 98 04/03/19 06:00 Intake & Output 04/02/19 04/03/19 04/03/19 18:59 06:59 18:59 Intake Total 1250.134 280 20 Output Total 305 458 85 Balance 945.134 -178 -65 Weight 114.5 kg Intake: IV 229 280 20 0.9NS 120 280 20 Lactated Ringers 1,000 ml 100 @ 20 mls/hr IV .Q24H [facility] Rx#:[id number] Pressure Bag 9 Intake, IV Titration 1021.134 Amount Albumin Human 5% 250 ml 250 In Empty Bag 1 bag @ 250 mls/hr IVPB ONCE ONE Rx#: [id number] Albumin Human 5% 250 ml 250 In Empty Bag 1 bag @ 250 mls/hr IVPB ONCE STA Rx#: [id number] Albumin Human 5% 250 ml 500 In Empty Bag 1 bag @ 250 mls/hr IVPB ONCE STA Rx#: [id number] Insulin Regular 100 unit 21.134 In Sodium Chloride 0.9% 100 ml @ Per Protocol IV .Q0M [facility] Rx#:[id number] Output: Urine 305 458 85 Other: Voiding Method Indwelling Catheter Indwelling Catheter ABP, PAP, CO, CI - Last Documented Arterial Blood Pressure 116/50 Pulmonary Artery Pressure 28/11 Cardiac Output 7.4 Cardiac Index 3.4 - Constitutional General appearance: Present: cooperative, no acute distress, obese - Respiratory Details: Lungs sounds diminished bilaterally with coarse breath sounds in the bases. Respirations even, nonlabored. Currently on 2 L nasal cannula with oxygen saturation 98%. Able to achieve 1000 mL on his incentive spirometry. Strong cough. - Cardiovascular Details: S1, S2 present. Irregular rate and rhythm, controlled atrial fibrillation on telemetry. Sternum stable. A/V epicardial pacemaker wires present, grounded. Palpable peripheral pulses bilaterally. Trace generalized edema present. No calf pain or tenderness noted. Heart hugger in place with patient intermittently demonstrating appropriate use with much encouragement, antiembolism stockings, SCDs present. - Gastrointestinal Gastrointestinal Comment(s): Abdomen soft, nontender, nondistended. Active bowel sounds present 4 quadrants. Tolerating minimal diet. Positive bowel movement. - Genitourinary Genitourinary Comment(s): Uribe present draining concentrated yellow urine. Output 25-35 mL/h overnight. - Integumentary Integumentary Comment(s): Skin is warm and dry with evidence of good perfusion. Anterior chest incision well approximated and covered with dry intact dressing. Left radial artery harvest site well approximated, patient able to move all fingers, manager intel appropriately, denies numbness or tingling. Bilateral lower extremity EVH sites well approximated. - Neurologic Neurologic: Present: CNII-XII intact - Musculoskeletal Musculoskeletal: Present: generalized weakness, strength equal bilaterally - Psychiatric Psychiatric: Present: A&O x's 3, appropriate affect, intact judgment & insight - Allied health notes Allied health notes reviewed: nursing - Labs CBC & Chem 7: 04/03/19 05:28 04/03/19 05:28 Labs: Abnormal Lab Results - Last 24 Hours (Table) 04/02/19 04/02/19 04/02/19 Range/Units 05:17 10:41 11:30 WBC (3.8-10.6) k/uL RBC (4.30-5.90) m/uL Hgb (13.0-17.5) gm/dL Hct (39.0-53.0) % RDW (11.5-15.5) % Plt Count (150-450) k/uL Neutrophils # (1.3-7.7) k/uL Lymphocytes # (1.0-4.8) k/uL Carbon Dioxide (22-30) mmol/L BUN (9-20) mg/dL Creatinine (0.66-1.25) mg/dL Glucose (74-99) mg/dL POC Glucose (mg/dL) 115 H 128 H (75-99) mg/dL Magnesium 2.6 H (1.6-2.3) mg/dL Total Bilirubin (0.2-1.3) mg/dL Total Protein (6.3-8.2) g/dL 04/02/19 04/02/19 04/02/19 Range/Units 12:32 15:48 17:08 WBC (3.8-10.6) k/uL RBC (4.30-5.90) m/uL Hgb (13.0-17.5) gm/dL Hct (39.0-53.0) % RDW (11.5-15.5) % Plt Count (150-450) k/uL Neutrophils # (1.3-7.7) k/uL Lymphocytes # (1.0-4.8) k/uL Carbon Dioxide (22-30) mmol/L BUN (9-20) mg/dL Creatinine (0.66-1.25) mg/dL Glucose (74-99) mg/dL POC Glucose (mg/dL) 111 H 195 H 222 H (75-99) mg/dL Magnesium (1.6-2.3) mg/dL Total Bilirubin (0.2-1.3) mg/dL Total Protein (6.3-8.2) g/dL 04/02/19 04/02/19 04/03/19 Range/Units 19:25 20:58 00:05 WBC 11.1 H (3.8-10.6) k/uL RBC 2.45 L (4.30-5.90) m/uL Hgb 7.2 L (13.0-17.5) gm/dL Hct 22.5 L (39.0-53.0) % RDW 16.3 H (11.5-15.5) % Plt Count 107 L (150-450) k/uL Neutrophils # 9.4 H (1.3-7.7) k/uL Lymphocytes # 0.7 L (1.0-4.8) k/uL Carbon Dioxide (22-30) mmol/L BUN (9-20) mg/dL Creatinine (0.66-1.25) mg/dL Glucose (74-99) mg/dL POC Glucose (mg/dL) 226 H 201 H (75-99) mg/dL Magnesium (1.6-2.3) mg/dL Total Bilirubin (0.2-1.3) mg/dL Total Protein (6.3-8.2) g/dL 04/03/19 04/03/19 04/03/19 Range/Units 02:05 05:28 05:28 WBC 15.9 H (3.8-10.6) k/uL RBC 2.78 L (4.30-5.90) m/uL Hgb 8.4 L (13.0-17.5) gm/dL Hct 25.4 L (39.0-53.0) % RDW 16.5 H (11.5-15.5) % Plt Count 127 L (150-450) k/uL Neutrophils # (1.3-7.7) k/uL Lymphocytes # (1.0-4.8) k/uL Carbon Dioxide 18 L (22-30) mmol/L BUN 68 H (9-20) mg/dL Creatinine 3.15 H (0.66-1.25) mg/dL Glucose 178 H (74-99) mg/dL POC Glucose (mg/dL) 190 H (75-99) mg/dL Magnesium (1.6-2.3) mg/dL Total Bilirubin 1.4 H (0.2-1.3) mg/dL Total Protein 5.7 L (6.3-8.2) g/dL 04/03/19 Range/Units 07:50 WBC (3.8-10.6) k/uL RBC (4.30-5.90) m/uL Hgb (13.0-17.5) gm/dL Hct (39.0-53.0) % RDW (11.5-15.5) % Plt Count (150-450) k/uL Neutrophils # (1.3-7.7) k/uL Lymphocytes # (1.0-4.8) k/uL Carbon Dioxide (22-30) mmol/L BUN (9-20) mg/dL Creatinine (0.66-1.25) mg/dL Glucose (74-99) mg/dL POC Glucose (mg/dL) 211 H (75-99) mg/dL Magnesium (1.6-2.3) mg/dL Total Bilirubin (0.2-1.3) mg/dL Total Protein (6.3-8.2) g/dL - Imaging and Cardiology Chest x-ray: report reviewed, image reviewed Assessment and Plan Assessment: 1. Triple-vessel coronary artery disease, status post 5 vessel CABG 2. History of coronary artery disease and myocardial infarction with multiple stents to the RCA and LAD 3. V. fib arrest after stenting in 2010 with placement of Medtronic ICD 4. Mild to moderate left ventricular dysfunction 5. Hypertension 6. Hyperlipidemia 7. Type 2 diabetes mellitus with hemoglobin A1c 7.3% 8. Chronic kidney disease stage III 9. Paroxysmal atrial fibrillation on chronic Eliquis for anticoagulation, currently in normal sinus rhythm, status post bilateral pulmonary vein isolation and left atrial appendage ligation 10. Mild COPD with preoperative FEV1 63% of predicted 11. SUSAN with home CPAP use 12. Obesity 13. Family history of heart disease 14. Postoperative acute blood loss anemia, status post transfusion 15. Postoperative thrombocytopenia 16. Postoperative controlled atrial fibrillation 17. Postoperative acute on chronic kidney disease Plan: 1. Continue aspirin, statin, Plavix and beta cely. Will increase his beta cely as tolerated, decreased yesterday due to hypotension. Norvasc discontinued 2. Continue amiodarone for atrial fibrillation prophylaxis. May need to start anticoagulation, will discontinue epicardial pacemaker wires 3. Wean O2 as tolerated. Encourage incentive spirometry is 10 times every hour while awake. 4. Bronchodilators per pulmonology management. 5. Increase activity as tolerated, PT/OT/cardiac rehab following. 6. Will give lasix 60 mg IVP x 1. Will start Midodrine 5 mg TID 7. Keep Uribe for another 24 hours for strict accurate intake and output. Continue Flomax 0.4 milligrams daily. 8. GI/DVT prophylaxis 9. Insulin management per primary care service. 10. Pain control with current medication regimen. Avoid Toradol due to his history of chronic kidney disease. 11. Avoid nephrotoxic agents 12. Continue to monitor daily labs and chest x-rays. Electrolyte replacement per protocol. No further transfusion. 13. More recommendations to follow based on patient's clinical course. Time with Patient: Greater than 30
[2019-04-03] MEDS: MIDODRINE 5 MG TAB PO SCH ×3 (09:18→17:59)
--- NOTE | 2019-04-03 09:21 | P.PN ---
Subjective Progress Note Date: 04/03/19 Principal diagnosis: Coronary artery disease. The patient is seen today 04/03/2019 in follow-up in the intensive care unit. He is currently sitting up in a chair at the bedside. Awake and alert in no acute distress. He did have issues with marginal urine output and labile blood pressure along with atrial fibrillation. He is maintaining good O2 saturations in the mid 90s on 2 L/m per nasal cannula. He is working with the incentive spirometer. Chest x-ray shows some superior mediastinal widening secondary to suspected vascular congestion. There is trace pleural effusions and central vascular congestion and some bibasilar airspace disease/atelectasis. White count 15.9. Hemoglobin 8.4. Creatinine 3.15. He is currently on amiodarone drip. He is given a dose of IV Lasix. Initiated on midodrine. Norvasc discontinued. Objective - Vital Signs Vital signs: Vital Signs Temp 98.5 F 04/03/19 04:00 Pulse 77 04/03/19 08:46 Resp 20 04/03/19 08:35 BP 105/61 04/03/19 08:00 Pulse Ox 95 04/03/19 08:35 Intake & Output 04/02/19 04/03/19 04/03/19 18:59 06:59 18:59 Intake Total 1250.134 280 20 Output Total 305 458 85 Balance 945.134 -178 -65 Weight 114.5 kg Intake: IV 229 280 20 0.9NS 120 280 20 Lactated Ringers 1,000 ml 100 @ 20 mls/hr IV .Q24H [facility] Rx#:[id number] Pressure Bag 9 Intake, IV Titration 1021.134 Amount Albumin Human 5% 250 ml 250 In Empty Bag 1 bag @ 250 mls/hr IVPB ONCE ONE Rx#: [id number] Albumin Human 5% 250 ml 250 In Empty Bag 1 bag @ 250 mls/hr IVPB ONCE STA Rx#: [id number] Albumin Human 5% 250 ml 500 In Empty Bag 1 bag @ 250 mls/hr IVPB ONCE STA Rx#: [id number] Insulin Regular 100 unit 21.134 In Sodium Chloride 0.9% 100 ml @ Per Protocol IV .Q0M [facility] Rx#:[id number] Output: Urine 305 458 85 Other: Voiding Method Indwelling Catheter Indwelling Catheter ABP, PAP, CO, CI - Last Documented Arterial Blood Pressure 116/50 Pulmonary Artery Pressure 28/11 Cardiac Output 7.4 Cardiac Index 3.4 - Exam GENERAL EXAM: Awake alert pleasant 73-year-old gentleman, comfortable in no a pparent distress. On 2 L nasal cannula. HEAD: Normocephalic. EYES: Normal reaction of pupils, equal size. NOSE: Clear with pink turbinates. THROAT: No erythema or exudates. NECK: No masses, no JVD. CHEST: Dressing dry and intact. Heart Hugger in place. LUNGS: Equal air entry with crackles in the bilateral posterior bases CVS: S1 and S2 normal with no audible murmur, irregular rhythm. ABDOMEN: No hepatosplenomegaly, no guarding or rigidity. SPINE: No scoliosis or deformity SKIN: No rashes CENTRAL NERVOUS SYSTEM: No focal deficits, tone is normal in all 4 extremities. EXTREMITIES: There is trace peripheral edema. No clubbing, no cyanosis. Peripheral pulses are intact. - Labs CBC & Chem 7: 04/03/19 05:28 04/03/19 05:28 Labs: Abnormal Lab Results - Last 24 Hours (Table) 04/02/19 04/02/19 04/02/19 Range/Units 05:17 10:41 11:30 WBC (3.8-10.6) k/uL RBC (4.30-5.90) m/uL Hgb (13.0-17.5) gm/dL Hct (39.0-53.0) % RDW (11.5-15.5) % Plt Count (150-450) k/uL Neutrophils # (1.3-7.7) k/uL Lymphocytes # (1.0-4.8) k/uL Carbon Dioxide (22-30) mmol/L BUN (9-20) mg/dL Creatinine (0.66-1.25) mg/dL Glucose (74-99) mg/dL POC Glucose (mg/dL) 115 H 128 H (75-99) mg/dL Magnesium 2.6 H (1.6-2.3) mg/dL Total Bilirubin (0.2-1.3) mg/dL Total Protein (6.3-8.2) g/dL 04/02/19 04/02/19 04/02/19 Range/Units 12:32 15:48 17:08 WBC (3.8-10.6) k/uL RBC (4.30-5.90) m/uL Hgb (13.0-17.5) gm/dL Hct (39.0-53.0) % RDW (11.5-15.5) % Plt Count (150-450) k/uL Neutrophils # (1.3-7.7) k/uL Lymphocytes # (1.0-4.8) k/uL Carbon Dioxide (22-30) mmol/L BUN (9-20) mg/dL Creatinine (0.66-1.25) mg/dL Glucose (74-99) mg/dL POC Glucose (mg/dL) 111 H 195 H 222 H (75-99) mg/dL Magnesium (1.6-2.3) mg/dL Total Bilirubin (0.2-1.3) mg/dL Total Protein (6.3-8.2) g/dL 04/02/19 04/02/19 04/03/19 Range/Units 19:25 20:58 00:05 WBC 11.1 H (3.8-10.6) k/uL RBC 2.45 L (4.30-5.90) m/uL Hgb 7.2 L (13.0-17.5) gm/dL Hct 22.5 L (39.0-53.0) % RDW 16.3 H (11.5-15.5) % Plt Count 107 L (150-450) k/uL Neutrophils # 9.4 H (1.3-7.7) k/uL Lymphocytes # 0.7 L (1.0-4.8) k/uL Carbon Dioxide (22-30) mmol/L BUN (9-20) mg/dL Creatinine (0.66-1.25) mg/dL Glucose (74-99) mg/dL POC Glucose (mg/dL) 226 H 201 H (75-99) mg/dL Magnesium (1.6-2.3) mg/dL Total Bilirubin (0.2-1.3) mg/dL Total Protein (6.3-8.2) g/dL 04/03/19 04/03/19 04/03/19 Range/Units 02:05 05:28 05:28 WBC 15.9 H (3.8-10.6) k/uL RBC 2.78 L (4.30-5.90) m/uL Hgb 8.4 L (13.0-17.5) gm/dL Hct 25.4 L (39.0-53.0) % RDW 16.5 H (11.5-15.5) % Plt Count 127 L (150-450) k/uL Neutrophils # (1.3-7.7) k/uL Lymphocytes # (1.0-4.8) k/uL Carbon Dioxide 18 L (22-30) mmol/L BUN 68 H (9-20) mg/dL Creatinine 3.15 H (0.66-1.25) mg/dL Glucose 178 H (74-99) mg/dL POC Glucose (mg/dL) 190 H (75-99) mg/dL Magnesium (1.6-2.3) mg/dL Total Bilirubin 1.4 H (0.2-1.3) mg/dL Total Protein 5.7 L (6.3-8.2) g/dL 04/03/19 Range/Units 07:50 WBC (3.8-10.6) k/uL RBC (4.30-5.90) m/uL Hgb (13.0-17.5) gm/dL Hct (39.0-53.0) % RDW (11.5-15.5) % Plt Count (150-450) k/uL Neutrophils # (1.3-7.7) k/uL Lymphocytes # (1.0-4.8) k/uL Carbon Dioxide (22-30) mmol/L BUN (9-20) mg/dL Creatinine (0.66-1.25) mg/dL Glucose (74-99) mg/dL POC Glucose (mg/dL) 211 H (75-99) mg/dL Magnesium (1.6-2.3) mg/dL Total Bilirubin (0.2-1.3) mg/dL Total Protein (6.3-8.2) g/dL Assessment and Plan Assessment: Impression: #1 Coronary artery disease with significant disease involving the proximal LAD and left main. Status post coronary artery bypass grafting utilizing a RAMIREZ to the LAD, saphenous vein grafts to the diag, LVB, PDA. Left radial arterial graft to the OM1 #2 Previous history of coronary artery disease with stent placement #3 Ischemic cardiomyopathy and ventricular tachycardia status post AICD placement. #4 Atrial fibrillation currently on amiodarone. #5 Chronic bronchitis, currently inactive and stable. FEV1 value 63% of predi cted. #6 Hyperlipidemia. #7 Hypertension. #8 History of pulmonary embolism. #9 Obstructive sleep apnea utilizing CPAP. 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 #11 Diabetes mellitus. #12 Peripheral neuropathy. #13 History of gout. Plan: The patient was seen and evaluated by Dr. Alvarado. Chest x-ray, labs reviewed. He did receive a dose of IV Lasix this morning. Midodrine was added. Norvasc discontinued. On amiodarone for A. fib. He needs increased encouragement regarding the use the incentive spirometer and cough and deep breathing exercises. We will increase his activity as tolerated. We will continue to follow and make further recommendations based on his clinical status. I, the cosigning physician, performed a history & physical examination of the patient. Lungs sounds with crackles in the bilateral posterior bases. Maintaining good O2 saturations in the 90s on 2 L/m per nasal cannula.. I discussed the assessment and plan of care with my nurse practitioner, Ashlie Rodas. I attest to the above note as dictated by her.
[2019-04-03] MEDS: TAMSULOSIN 0.4 MG CAP.ER.24H PO SCH (10:37)
[2019-04-03 12:00] LABS: Glucose,Whole Blood 176 mg/dL (75-99)
[2019-04-03] MEDS ORDERED: amLODIPine 2.5 MG TAB PO SCH (12:00)
--- NOTE | 2019-04-03 12:41 | PN ---
PROGRESS NOTE This is a 73-year-old gentleman that is admitted to hospital for bypass surgery. He is doing somewhat poorly this morning. He is sleepy, appears fatigued and tired. Remains in atrial fibrillation with controlled ventricular rate. PHYSICAL EXAMINATION: On exam, heart rate is 70 beats per minute, irregular. Blood pressure is 113/80. Respiratory rate is 18. Chest exam reveals diminished air entry bilaterally. Heart exam reveals first and second heart sounds, irregular rhythm. Exam of extremities reveals bilateral mild edema. Peripheral pulses are felt. LABS: Labs show a hemoglobin of 8.4, creatinine is 3.1 that has gradually increased from 1.7 on admission. BUN is 68 that had gone up from 33 on this admission. ASSESSMENT: 1. Coronary artery disease, status post coronary artery bypass grafting. 2. Persistent atrial fibrillation. 3. Renal insufficiency. PLAN: Patient needs to be anticoagulated. I am going to consult Nephrology given the worsening renal functions. Repeat an echo on him to assess the LV function. MMODL / IJN: [id number] /
--- NOTE | 2019-04-03 13:57 | P.PN ---
Subjective Progress Note Date: 04/03/19 This is a 73-year-old male patient of Dr. Guevara with past medical history for coronary artery disease, paroxysmal atrial fibrillation on eliquis, diabetes mellitus type II insulin requiring with diabetic neuropathy, chronic kidney disease, kidney stones, COPD, obstructive sleep apnea with CPAP, hyperlipidemia, hypertension, and rheumatoid arthritis and cirrhotic arthritis, gout, benign prostatic hypertrophy. His primary care physician is Dr. 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 He had a heart catheterization done in 2005 that showed moderate disease involving the LAD and diagonal was mild involvement patient had some irregular lesion of the circumflex. He was seen at [facility] for chest pain and non-ST elevated MT 2010. At that time, his heart catheterization revealed an acutely occluded right coronary artery, significant disease in the moderate size third obtuse marginal branch with moderate disease in the LAD and left circumflex. Ejection fraction was 3540 percent. He underwent successful stenting of the distal RCA. Later in his room, patient developed ventricular fibrillation and was quickly resuscitated and underwent heart catheterization and underwent angioplasty and stenting of the PLV branch of the right coronary artery. On 09/14/2010, patient underwent a single chamber cardioverter defibrillator implantation. His echoca rdiogram revealed mild pulmonary hypertension, ejection fraction 40% at that time. In 2014 he underwent heart catheterization finding 45% proximal right coronary artery stenosis and significant mid LAD lesion which underwent PTCA and stenting of the mid LAD. Patient's also gives history of a septic knee joint needing washout which was done at [facility] [place] at that time patient developed atrial fibrillation in the postop period. He also had a run of V. tach for which his AICD fired. Ever since that episode of sepsis, patient has had chronic kidney disease. Regarding his diabetes, he follows with Dr. Yoanna Mccormick. He is currently on Trulicity 1.5mg weekly, Lantus 56 units in the morning and recently changed to 18 units of NovoLog with meals. His last hemoglobin A1c was 7.4 in December at the [facility]. Regarding rheumatoid arthritis and psoriatic arthritis, patient follows with Dr. Shelton. In the past he has been on methotrexate, Enbrel and Humira. He was recently on Ilaris but this was stopped when he started having cardiac problems as there is concern for arrhythmia. 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 The patient have follow-up in the cardiology office in December of this year and underwent a Lexiscan stress test that did not demonstrate any ischemia. Over the past 3-4 weeks she has had intermittent substernal chest pain with radiation to his arms. He was recommended for heart catheterization which was completed yesterday that found proximal LAD stenosis 60%, mid LAD stenosis 30%, circumflex stenosis 90% and RCA stenosis 60. Cardiothoracic surgery was consulted for recommendations regarding CABG versus stenting. Carotid ultrasound revealed mild plaque bilateral bifurcations but no significant stenosis. Chest x-ray reveals no acute cardiopulmonary process. Underlying COPD. patient has been evaluated by cardiothoracic surgery. Plan for tomorrow is a repeat heart catheterization to further evaluate LAD. 03/26: Patient underwent heart catheterization today with Dr. SANAM Hinds finding significant lesion in the proximal LAD and area of 2.6 mm2 also within the left main and heavy circumferential desiccation lesion in the area of 3.2 mm2. Both were deemed significant and requires bypass surgery. The patient is seen today while in the recovery area. He denies having any chest pain or shortness of breath at this time. Blood sugars will need to be well-controlled and we will make arrangements for Levemir to be 30 units in the morning and 40 at bedtime. 03/27: The patient complains of nasal congestion since he had his procedure yesterday. We will add Flonase. Regarding blood sugars nighttime blood sugar remains quite elevated and we will make additional changes to his insulins by adding NovoLog scheduled 3 units with each meal and increase nighttime Levemir to 45 units. He is scheduled for open heart on Saturday. 03/28: Patient is resting comfortably in bed without any acute distress. Patient has no complaints at this time. Patient did not receive his Levemir last night due to his blood sugar being 112. Patient's blood sugar was elevated in 150s this morning due to missing the dose of Levemir. Patient is scheduled for open heart surgery on Saturday. 03/29: Patient is sitting up in bed with at the bedside. Patient is in no acute distress. Patient has no complaints or concerns at this time. He slept well last night. Patient was given his Levemir last night his blood sugar this morning was 120. Patient is waiting to have open heart surgery on Saturday. Questions were answered. 03/30: Patient will be going for open heart surgery today we will be back in ICU on the respirator and insulin drip. 03/31: Patient is off mechanical ventilation sitting in his chair less pain and discomfort still have chest tube complaining of mild chest pain from his surgery but no other major complaint. 04/01: Patient is doing much better most of his tube out's 1 getting catheter was removed, blood sugar is much better pulse rate is running in the 60s and 70s, patient is hemodynamically stable no transfusion done last 24 hours. 04/02: Blood sugars are stable but he is still on insulin drip which we will transition to Levemir 40 units this morning, discontinue the insulin drip, start NovoLog 10 units with meals along with scale every 4 hours. Patient is complaining of back pain and neck pain. He has been tried on Lidoderm cream without improvement and now lidocaine patch. We will add in baclofen as needed. All chest tubes and Cordis out today. Uribe catheter remained for retention and patient has been started back on Flomax. Consultation In place for Dr. Haji. Patient encouraged to increase ambulation. 04/03: Patient remains in the intensive care unit. 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 Repeat echocardiogram has been ordered by cardiology. Back and neck pain appeared to be improved from yesterday. He has had marginal urine output and has received fluid boluses. Due to hypotension, midodrine added, Norvasc discontinued. IV Lasix 60 mg 1 dose was ordered for today. Uribe remains in place and patient continued on Flomax. Consult was added for nephrology regarding acute kidney injury. Repeat blood work today reveals white count of 15.9, hemoglobin 8.4, platelet count 127. BUN 68 and creatinine 3.15. Blood sugars are running between 178 and 211. We are increasing Levemir to 65 units which will start tomorrow and increasing NovoLog with meals to 22 units 3 times daily. Patient is continued on NovoLog scale. Dr. Haji consult is esha yang as he is not available. Objective - Vital Signs Vital signs: Vital Signs Temp 98.5 F 04/03/19 04:00 Pulse 74 04/03/19 12:13 Resp 20 04/03/19 12:13 BP 95/52 04/03/19 11:30 Pulse Ox 97 04/03/19 11:30 Intake & Output 04/02/19 04/03/19 04/03/19 18:59 06:59 18:59 Intake Total 1250.134 280 20 Output Total 305 458 390 Balance 945.134 -178 -370 Weight 114.5 kg Intake: IV 229 280 20 0.9NS 120 280 20 Lactated Ringers 1,000 ml 100 @ 20 mls/hr IV .Q24H [facility] Rx#:[id number] Pressure Bag 9 Intake, IV Titration 1021.134 Amount Albumin Human 5% 250 ml 250 In Empty Bag 1 bag @ 250 mls/hr IVPB ONCE ONE Rx#: [id number] Albumin Human 5% 250 ml 250 In Empty Bag 1 bag @ 250 mls/hr IVPB ONCE STA Rx#: [id number] Albumin Human 5% 250 ml 500 In Empty Bag 1 bag @ 250 mls/hr IVPB ONCE STA Rx#: [id number] Insulin Regular 100 unit 21.134 In Sodium Chloride 0.9% 100 ml @ Per Protocol IV .Q0M [facility] Rx#:[id number] Output: Urine 305 458 390 Other: Voiding Method Indwelling Catheter Indwelling Catheter Indwelling Catheter ABP, PAP, CO, CI - Last Documented Arterial Blood Pressure 116/50 Pulmonary Artery Pressure 23/04 Cardiac Output 7.4 Cardiac Index 3.4 - Labs CBC & Chem 7: 04/03/19 05:28 04/03/19 05:28 Labs: Abnormal Lab Results - Last 24 Hours (Table) 04/02/19 04/02/19 04/02/19 Range/Units 05:17 12:32 15:48 WBC (3.8-10.6) k/uL RBC (4.30-5.90) m/uL Hgb (13.0-17.5) gm/dL Hct (39.0-53.0) % RDW (11.5-15.5) % Plt Count (150-450) k/uL Neutrophils # (1.3-7.7) k/uL Lymphocytes # (1.0-4.8) k/uL Carbon Dioxide (22-30) mmol/L BUN (9-20) mg/dL Creatinine (0.66-1.25) mg/dL Glucose (74-99) mg/dL POC Glucose (mg/dL) 111 H 195 H (75-99) mg/dL Magnesium 2.6 H (1.6-2.3) mg/dL Total Bilirubin (0.2-1.3) mg/dL Total Protein (6.3-8.2) g/dL 04/02/19 04/02/19 04/02/19 Range/Units 17:08 19:25 20:58 WBC 11.1 H (3.8-10.6) k/uL RBC 2.45 L (4.30-5.90) m/uL Hgb 7.2 L (13.0-17.5) gm/dL Hct 22.5 L (39.0-53.0) % RDW 16.3 H (11.5-15.5) % Plt Count 107 L (150-450) k/uL Neutrophils # 9.4 H (1.3-7.7) k/uL Lymphocytes # 0.7 L (1.0-4.8) k/uL Carbon Dioxide (22-30) mmol/L BUN (9-20) mg/dL Creatinine (0.66-1.25) mg/dL Glucose (74-99) mg/dL POC Glucose (mg/dL) 222 H 226 H (75-99) mg/dL Magnesium (1.6-2.3) mg/dL Total Bilirubin (0.2-1.3) mg/dL Total Protein (6.3-8.2) g/dL 04/03/19 04/03/19 04/03/19 Range/Units 00:05 02:05 05:28 WBC 15.9 H (3.8-10.6) k/uL RBC 2.78 L (4.30-5.90) m/uL Hgb 8.4 L (13.0-17.5) gm/dL Hct 25.4 L (39.0-53.0) % RDW 16.5 H (11.5-15.5) % Plt Count 127 L (150-450) k/uL Neutrophils # (1.3-7.7) k/uL Lymphocytes # (1.0-4.8) k/uL Carbon Dioxide (22-30) mmol/L BUN (9-20) mg/dL Creatinine (0.66-1.25) mg/dL Glucose (74-99) mg/dL POC Glucose (mg/dL) 201 H 190 H (75-99) mg/dL Magnesium (1.6-2.3) mg/dL Total Bilirubin (0.2-1.3) mg/dL Total Protein (6.3-8.2) g/dL 04/03/19 04/03/19 04/03/19 Range/Units 05:28 07:50 11:59 WBC (3.8-10.6) k/uL RBC (4.30-5.90) m/uL Hgb (13.0-17.5) gm/dL Hct (39.0-53.0) % RDW (11.5-15.5) % Plt Count (150-450) k/uL Neutrophils # (1.3-7.7) k/uL Lymphocytes # (1.0-4.8) k/uL Carbon Dioxide 18 L (22-30) mmol/L BUN 68 H (9-20) mg/dL Creatinine 3.15 H (0.66-1.25) mg/dL Glucose 178 H (74-99) mg/dL POC Glucose (mg/dL) 211 H 176 H (75-99) mg/dL Magnesium (1.6-2.3) mg/dL Total Bilirubin 1.4 H (0.2-1.3) mg/dL Total Protein 5.7 L (6.3-8.2) g/dL Assessment and Plan Plan: 1. Triple-vessel coronary artery disease: Post 5 vessel bypass surgery moore ccessfully, came off mechanical ventilation doing well so far. 2. History of non-ST elevated myocardial infarction, coronary artery disease and multiple stents. Just had 5 vessel bypass surgery and doing well in his recovery so far 3. Diabetes mellitus type 2 with end organ damage. Increase Levemir to 65 units units in the morning, increase NovoLog scheduled 22 units with meals and continue NovoLog scale.. 4. Paroxysmal atrial fibrillation. Start him back on Eliquis whenever okay by cardiothoracic. Patient is on oral amiodarone and Lopressor. 5. Hypertension. Continue Lopressor but discontinue amlodipine. Midodrine has been started. 6. Hyperlipidemia. Continue atorvastatin 40 mg daily 7. Chronic kidney disease. Monitor renal function and avoid nephrotoxic agents. 8. Obstructive sleep apnea with home CPAP. 9. Mechanical ventilation post CABG: Doing very well off mechanical ventilation still on O2 pulse ox running in the 90s. 10. History of ventricular tachycardia and cardiomyopathy status post AICD, stable 11. Gastroesophageal reflux disease. Continue Protonix 12. Acute kidney injury with chronic kidney disease stage 3. Avoid nephrotoxic agents. Nephrology consult. 13. Benign prostatic hypertrophy. Continue Flomax. Discharge plan: Most likely subacute rehab or inpatient rehab. Consult with Dr. Haji Impression and plan of care have been directed as dictated by the signing physician. Leigh Bailey nurse practitioner acting as scribe for signing physician.
[2019-04-03 16:52] LABS: Glucose,Whole Blood 75 mg/dL (75-99)
[2019-04-03 18:45] LABS: Glucose,Whole Blood 121 mg/dL (75-99)
[2019-04-03] MEDS: SENNOSIDES-DOCUSATE SODIUM 1 EACH TAB PO SCH ×2 (19:54→21:03)
[2019-04-03 20:31] LABS: Glucose,Whole Blood 127 mg/dL (75-99)
[2019-04-04] MEDS: HEPARIN SODIUM,PORCINE 5,000 UNIT/ML 1 ML VIAL SQ SCH ×4 (00:21→23:46)
[2019-04-04] MEDS: BACLOFEN 10 MG TAB PO PRN (00:21)
[2019-04-04] MEDS: ACETAMINOPHEN TAB 500 MG TAB PO PRN ×2 (00:21→18:07)
[2019-04-04 02:17] LABS: Glucose,Whole Blood 140 mg/dL (75-99)
[2019-04-04] MEDS: INSULIN ASPART (NovoLOG) 100 UNIT/ML VIAL SQ SCH ×7 (05:56→20:32)
[2019-04-04 06:16] LABS: Anisocytosis Slight; HCT 22.8 % (39.0-53.0); HGB 7.5 gm/dL (13.0-17.5); Hypochromasia Slight; Ionized Calcium 4.3 mg/dL (4.5-5.3); MCH 30.2 pg (25.0-35.0); MCV 91.5 fL (80.0-100.0); Mean Platelet Volume 7.4; Platelet Count 172 k/uL (150-450); Poikilocytosis Slight; RBC 2.49 m/uL (4.30-5.90); RDW 16.3 % (11.5-15.5); WBC 15.5 k/uL (3.8-10.6)
[2019-04-04 06:31] LABS: Calcium 8.1 mg/dL (8.4-10.2); Magnesium 2.9 mg/dL (1.6-2.3); Potassium 4.4 mmol/L (3.5-5.1)
--- NOTE | 2019-04-04 06:42 | XR ---
EXAMINATION TYPE: XR chest 1V portable DATE OF EXAM: 04/04/2019 HISTORY: post cardiac surgery. REFERENCE: Previous study dated 04/03/2019. FINDINGS: There has been a midline sternotomy. There is unipolar pacemaker in place on the left. The heart is enlarged. There is left basilar airspace disease and right basilar airspace disease to a lesser extent. There are bilateral small effusions. Vascular congestion may have improved slightly. IMPRESSION: SLIGHT IMPROVEMENT IN THE CHEST.
[2019-04-04 06:59] LABS: Glucose,Whole Blood 153 mg/dL (75-99)
[2019-04-04] MEDS ORDERED: INSULIN DETEMIR (LEVEMIR) 100 UNIT/ML SYR SQ SCH (07:00)
[2019-04-04] MEDS: PANTOPRAZOLE 40 MG TABLET PO SCH (07:15)
[2019-04-04] MEDS: MIDODRINE 5 MG TAB PO SCH ×3 (07:15→17:30)
[2019-04-04] MEDS: IPRATROPIUM-ALBUTEROL 3 ML NEB INHALATION SCH ×4 (07:45→20:51)
[2019-04-04] MEDS: APIXABAN 2.5 MG TABLET PO SCH ×2 (08:15→20:44)
[2019-04-04] MEDS: ASPIRIN 81 MG PO SCH (08:15)
[2019-04-04] MEDS: AMIODARONE 200 MG TAB PO SCH ×2 (08:15→20:44)
[2019-04-04] MEDS: ATORVASTATIN 40 MG TAB PO SCH (08:16)
[2019-04-04] MEDS: COLCHICINE 0.6 MG EACH PO SCH (08:16)
[2019-04-04] MEDS: LIDOCAINE 5% PATCH TOPICAL SCH (08:16)
[2019-04-04] MEDS: METOPROLOL TARTRATE 25 MG TAB PO SCH ×2 (08:17→20:44)
[2019-04-04] MEDS ORDERED: CALCIUM GLUCONATE 1 GM in SODIUM CHLORIDE 0.9% 100 ML IVPB ONE (09:00)
[2019-04-04] MEDS ORDERED: FUROSEMIDE 10 MG/ML 10 ML VIAL IV STA (09:04)
[2019-04-04] MEDS ORDERED: ALBUMIN HUMAN 25% 50 ML in EMPTY BAG 1 BAG IVPB ONE (09:30)
--- NOTE | 2019-04-04 09:32 | P.PN ---
Subjective Progress Note Date: 04/04/19 Principal diagnosis: Triple-vessel coronary artery disease. 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 POD #5 quintuple coronary artery bypass grafting using the left internal mammary artery to the left anterior descending coronary artery, left radial artery from the aorta to the first obtuse marginal coronary artery, reverse greater saphenous vein graft from the aorta to the diagonal coronary artery, reverse greater saphenous vein graft from the aorta to the posterior descending coronary artery, and reverse greater saphenous vein graft from aorta to the posterior lateral branch of the right coronary artery. Bilateral pulmonary vein isolation using the bipolar radiofrequency energy by Atricure, exclusion of the left atrial appendage using a 35 mm Atriclip, endoscopic left radial artery harvest, endoscopic harvesting of the left greater saphenous vein from the groin to above the ankle level and right greater saphenous vein from the groin to below the knee level, intraoperative graft flow measurements using the Medistim system, intraoperative transesophageal echocardiogram and epi-aortic scanning. Postoperative acute blood loss anemia, expected outcome due to hemodilution and cardiopulmonary bypass. Postoperative thrombocytopenia, expected outcome due to his preoperative thrombocytopenia and hemodilution. Postoperative controlled atrial fibrillation, expected due to his history of paroxysmal atrial fibrillation and known potential outcome from cardiac surgery Postoperative acute on chronic kidney disease, unexpected but potential outcome due to his baseline chronic kidney disease along with borderline hypotension The patient is currently sitting up in the recliner in the intensive care unit in no acute distress. States lower back pain which is better since addition of Lidoderm patch, denies chest pain, denies shortness of breath. Patient appears more alert today, his artery had his shower, and has ambulated in the hallway. Patient requires reminders to cough and deep breathe. Remains in controlled atrial fibrillation, blood pressure more stable, Midodrine 3 times daily initiated yesterday. Epicardial pacemaker wires discontinued yesterday. Objective - Vital Signs Vital signs: Vital Signs Temp 97.8 F 04/04/19 08:00 Pulse 75 04/04/19 09:00 Resp 18 04/04/19 09:00 BP 118/60 04/04/19 09:00 Pulse Ox 96 04/04/19 09:00 Intake & Output 04/03/19 04/04/19 04/04/19 18:59 06:59 18:59 Intake Total 20 Output Total 650 465 65 Balance -241 -871 -65 Weight 114.4 kg Intake: IV 20 0.9NS 20 Output: Urine 650 465 65 Other: Voiding Method Indwelling Catheter Indwelling Catheter # Voids 0 # Bowel Movements 1 1 ABP, PAP, CO, CI - Last Documented Arterial Blood Pressure 116/50 Pulmonary Artery Pressure 28/11 Cardiac Output 7.4 Cardiac Index 3.4 - Constitutional General appearance: Present: cooperative, no acute distress, obese - Respiratory Details: Lungs sounds diminished bilaterally with coarse breath sounds in the bases, better than yesterday. Respirations even, nonlabored. Currently on room air with oxygen saturation 94%. Able to achieve 1000 mL on his incentive spirometry. Strong cough with productive of thin yellowish white sputum. - Cardiovascular Details: S1, S2 present. Irregular rate and rhythm, controlled atrial fibrillation on telemetry. Sternum stable. Palpable peripheral pulses bilaterally. Trace generalized edema present. No calf pain or tenderness noted. Heart hugger in place with patient intermittently demonstrating appropriate use with much encouragement, antiembolism stockings, SCDs present. - Gastrointestinal Gastrointestinal Comment(s): Abdomen soft, nontender, nondistended, obese. Active bowel sounds present 4 quadrants. Tolerating diet. Positive bowel movement. - Genitourinary Genitourinary Comment(s): Uribe present draining concentrated yellow urine. Output 30-45 mL/h overnight, 260 mL diuresis after IV Lasix given yesterday. - Integumentary Integumentary Comment(s): Skin is warm and dry with evidence of good perfusion. Anterior chest incision well approximated and covered with dry intact dressing. 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 Bilateral lower extremity EVH sites well approximated. - Neurologic Neurologic: Present: CNII-XII intact - Musculoskeletal Musculoskeletal: Present: gait normal, generalized weakness, strength equal bilaterally - Psychiatric Psychiatric: Present: A&O x's 3, appropriate affect, intact judgment & insight - Allied health notes Allied health notes reviewed: nursing - Labs CBC & Chem 7: 04/04/19 05:55 04/04/19 05:55 Labs: Abnormal Lab Results - Last 24 Hours (Table) 04/03/19 04/03/19 04/03/19 Range/Units 11:59 18:43 20:29 WBC (3.8-10.6) k/uL RBC (4.30-5.90) m/uL Hgb (13.0-17.5) gm/dL Hct (39.0-53.0) % RDW (11.5-15.5) % Sodium (137-145) mmol/L Carbon Dioxide (22-30) mmol/L BUN (9-20) mg/dL Creatinine (0.66-1.25) mg/dL Glucose (74-99) mg/dL POC Glucose (mg/dL) 176 H 121 H 127 H (75-99) mg/dL Calcium (8.4-10.2) mg/dL Ionized Calcium Julius (4.5-5.3) mg/dL Magnesium (1.6-2.3) mg/dL 04/04/19 04/04/19 04/04/19 Range/Units 02:16 05:55 05:55 WBC 15.5 H (3.8-10.6) k/uL RBC 2.49 L (4.30-5.90) m/uL Hgb 7.5 L (13.0-17.5) gm/dL Hct 22.8 L (39.0-53.0) % RDW 16.3 H (11.5-15.5) % Sodium 136 L (137-145) mmol/L Carbon Dioxide 20 L (22-30) mmol/L BUN 82 H (9-20) mg/dL Creatinine 3.20 H (0.66-1.25) mg/dL Glucose 138 H (74-99) mg/dL POC Glucose (mg/dL) 140 H (75-99) mg/dL Calcium 8.1 L (8.4-10.2) mg/dL Ionized Calcium Julius 4.3 L (4.5-5.3) mg/dL Magnesium 2.9 H (1.6-2.3) mg/dL 04/04/19 Range/Units 06:58 WBC (3.8-10.6) k/uL RBC (4.30-5.90) m/uL Hgb (13.0-17.5) gm/dL Hct (39.0-53.0) % RDW (11.5-15.5) % Sodium (137-145) mmol/L Carbon Dioxide (22-30) mmol/L BUN (9-20) mg/dL Creatinine (0.66-1.25) mg/dL Glucose (74-99) mg/dL POC Glucose (mg/dL) 153 H (75-99) mg/dL Calcium (8.4-10.2) mg/dL Ionized Calcium Julius (4.5-5.3) mg/dL Magnesium (1.6-2.3) mg/dL - Imaging and Cardiology Chest x-ray: report reviewed, image reviewed Assessment and Plan Assessment: 1. Triple-vessel coronary artery disease, status post 5 vessel CABG 2. History of coronary artery disease and myocardial infarction with multiple stents to the RCA and LAD 3. V. fib arrest after stenting in 2010 with placement of Medtronic ICD 4. Mild to moderate left ventricular dysfunction 5. Hypertension 6. Hyperlipidemia 7. Type 2 diabetes mellitus with hemoglobin A1c 7.3% 8. Chronic kidney disease stage III 9. Paroxysmal atrial fibrillation on chronic Eliquis for anticoagulation, currently in normal sinus rhythm, status post bilateral pulmonary vein isolation and left atrial appendage ligation 10. Mild COPD with preoperative FEV1 63% of predicted 11. SUSAN with home CPAP use 12. Obesity 13. Family history of heart disease 14. Postoperative acute blood loss anemia, status post transfusion 15. Postoperative thrombocytopenia 16. Postoperative controlled atrial fibrillation 17. Postoperative acute on chronic kidney disease Plan: 1. Continue low-dose aspirin, statin, and beta cely. Will increase his beta cely as tolerated. Plavix discontinued 2. Continue amiodarone for atrial fibrillation prophylaxis. Eliquis started today 3. Encourage incentive spirometry is 10 times every hour while awake. 4. Bronchodilators per pulmonology management. 5. Increase activity as tolerated, PT/OT/cardiac rehab following. 6. Will give 25% albumin followed by lasix 60 mg IVP x 1. Continue Midodrine 5 mg TID 7. Keep Uribe for another 24 hours for strict accurate intake and output. Continue Flomax 0.4 milligrams daily. Will send urinalysis with culture 8. GI/DVT prophylaxis 9. Insulin management per primary care service. 10. Pain control with current medication regimen. Avoid Toradol due to his history of chronic kidney disease. 11. Avoid nephrotoxic agents 12. Continue to monitor daily labs and chest x-rays. Electrolyte replacement per protocol, will give 1 g IV calcium slowly. No further transfusion. 13. More recommendations to follow based on patient's clinical course. Time with Patient: Greater than 30
[2019-04-04] MEDS: INSULIN DETEMIR (LEVEMIR) 100 UNIT/ML SYR SQ SCH (09:36)
[2019-04-04] MEDS: ALLOPURINOL 100 MG TAB PO SCH ×2 (09:38→20:44)
[2019-04-04] MEDS: TAMSULOSIN 0.4 MG CAP.ER.24H PO SCH (09:38)
--- NOTE | 2019-04-04 09:45 | P.PN ---
Subjective Progress Note Date: 04/04/19 This is a 73-year-old male patient of Dr. Guevara with past medical history for coronary artery disease, paroxysmal atrial fibrillation on eliquis, diabetes mellitus type II insulin requiring with diabetic neuropathy, chronic kidney disease, kidney stones, COPD, obstructive sleep apnea with CPAP, hyperlipidemia, hypertension, and rheumatoid arthritis and cirrhotic arthritis, gout, benign prostatic hypertrophy. His primary care physician is Dr. Guevara he follows with Dr. 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 He had a heart catheterization done in 2005 that showed moderate disease involving the LAD and diagonal was mild involvement patient had some irregular lesion of the circumflex. He was seen at [facility] for chest pain and non-ST elevated [place] 2010. At that time, his heart catheterization revealed an acutely occluded right coronary artery, significant disease in the moderate size third obtuse marginal branch with moderate disease in the LAD and left circumflex. Ejection fraction was 3540 percent. He underwent successful stenting of the distal RCA. Later in his room, patient developed ventricular fibrillation and was quickly resuscitated and underwent heart catheterization and underwent angioplasty and stenting of the PLV branch of the right coronary artery. On 09/14/2010, patient underwent a single chamber cardioverter defibrillator implantation. His echoca rdiogram revealed mild pulmonary hypertension, ejection fraction 40% at that time. In 2014 he underwent heart catheterization finding 45% proximal right coronary artery stenosis and significant mid LAD lesion which underwent PTCA and stenting of the mid LAD. Patient's also gives history of a septic knee joint needing washout which was done at [facility] at that time patient developed atrial fibrillation in the postop period. He also had a run of V. tach for which his AICD fired. Ever since that episode of sepsis, patient has had chronic kidney disease. Regarding his diabetes, he follows with Dr. Yoanna Mccormick. He is currently on Trulicity 1.5mg weekly, Lantus 56 units in the morning and recently changed to 18 units of NovoLog with meals. His last hemoglobin A1c was 7.4 in December at the [place] [facility]. Regarding rheumatoid arthritis and psoriatic arthritis, patient follows with Dr. Shelton. In the past he has been on methotrexate, Enbrel and Humira. He was recently on Ilaris but this was stopped when he started having cardiac problems as there is concern for arrhythmia. He contacted his colon therapist and she had recommended stopping it. The patient have follow-up in the cardiology office in December of this year and underwent a Lexiscan stress test that did not demonstrate any ischemia. Over the past 3-4 weeks she has had intermittent substernal chest pain with radiation to his arms. He was recommended for heart catheterization which was completed yesterday that found proximal LAD stenosis 60%, mid LAD stenosis 30%, circumflex stenosis 90% and RCA stenosis 60. Cardiothoracic surgery was consulted for recommendations regarding CABG versus stenting. Carotid ultrasound revealed mild plaque bilateral bifurcations but no significant stenosis. Chest x-ray reveals no acute cardiopulmonary process. Underlying COPD. patient has been evaluated by cardiothoracic surgery. Plan for tomorrow is a repeat heart catheterization to further evaluate LAD. 03/26: Patient underwent heart catheterization today with Dr. SANAM Hinds finding significant lesion in the proximal LAD and area of 2.6 mm2 also within the left main and heavy circumferential desiccation lesion in the area of 3.2 mm2. Both were deemed significant and requires bypass surgery. The patient is seen today while in the recovery area. He denies having any chest pain or shortness of breath at this time. Blood sugars will need to be well-controlled and we will make arrangements for Levemir to be 30 units in the morning and 40 at bedtime. 03/27: The patient complains of nasal congestion since he had his procedure yesterday. We will add Flonase. Regarding blood sugars nighttime blood sugar remains quite elevated and we will make additional changes to his insulins by adding NovoLog scheduled 3 units with each meal and increase nighttime Levemir to 45 units. He is scheduled for open heart on Saturday. 03/28: Patient is resting comfortably in bed without any acute distress. Patient has no complaints at this time. Patient did not receive his Levemir last night due to his blood sugar being 112. Patient's blood sugar was elevated in 150s this morning due to missing the dose of Levemir. Patient is scheduled for open heart surgery on Saturday. 03/29: Patient is sitting up in bed with at the bedside. Patient is in no acute distress. Patient has no complaints or concerns at this time. He slept well last night. Patient was given his Levemir last night his blood sugar this morning was 120. Patient is waiting to have open heart surgery on Saturday. Questions were answered. 03/30: Patient will be going for open heart surgery today we will be back in ICU on the respirator and insulin drip. 03/31: Patient is off mechanical ventilation sitting in his chair less pain and discomfort still have chest tube complaining of mild chest pain from his surgery but no other major complaint. 04/01: Patient is doing much better most of his tube out's 1 getting catheter was removed, blood sugar is much better pulse rate is running in the 60s and 70s, patient is hemodynamically stable no transfusion done last 24 hours. 04/02: Blood sugars are stable but he is still on insulin drip which we will transition to Levemir 40 units this morning, discontinue the insulin drip, start NovoLog 10 units with meals along with scale every 4 hours. Patient is complaining of back pain and neck pain. He has been tried on Lidoderm cream without improvement and now lidocaine patch. We will add in baclofen as needed. All chest tubes and Cordis out today. Uribe catheter remained for retention and patient has been started back on Flomax. Consultation In place for Dr. Haji. Patient encouraged to increase ambulation. 04/03: Patient remains in the intensive care unit. conveyor monitor is A. fib with controlled rate. Repeat echocardiogram has been ordered by cardiology. Back and neck pain appeared to be improved from yesterday. He has had marginal urine output and has received fluid boluses. Due to hypotension, midodrine added, Norvasc discontinued. IV Lasix 60 mg 1 dose was ordered for today. Uribe remains in place and patient continued on Flomax. Consult was added for nephrology regarding acute kidney injury. Repeat blood work today reveals white count of 15.9, hemoglobin 8.4, platelet count 127. BUN 68 and creatinine 3.15. Blood sugars are running between 178 and 211. We are increasing Levemir to 65 units which will start tomorrow and increasing NovoLog with meals to 22 units 3 times daily. Patient is continued on NovoLog scale. Dr. Haji consult is esha yang as he is not available. 04/04: Patient remains in intensive care unit, his sitting in the chair he appears a bit weaker today his hemoglobin is is down to 7.6, he had an episode of low sugar is not eating much adjusted his insulin regimen to Levemir 45 units in the morning as well as decreasing his Humalog to 12 units plus scale with meals. Patient continues to be somewhat short of breath, he continues to have shallow breathing, he is using incentive spirometer on and off, he is generally weak he will require subacute rehabilitation versus inpatient rehabilitation. Review of systems: CONSTITUTIONAL: Overweight no acute respiratory distress. EYES: No icterus sclerae, no conjunctivitis. EARS, NOSE, MOUTH, THROAT, and FACE: No sore throat, lymphadenopathy, carotid bruits or deformity. RESPIRATORY: Mild shortness of breath no cough wheezes. CARDIOVASCULAR: Positive chest pain and angina with mild shortness of breath positive PND and orthopnea. GASTROINTESTINAL: No Abd pain, Nausea or vomiting, no Diarrhea or constipation, No GI Bleed, no distention or masses. GENITOURINARY: Negative for Hematuria or UTI, no kidney stones. INTEGUMENT/BREAST: Negative for any muscular injury with mild osteoarthritis.. HEMATOLOGIC/LYMPHATIC: Negative for bleed or purpura. MUSCULOSKELTAL: Multiple muscle and tendon involvement generalized arthralgia and myalgia. Reports neck pain. Reports lumbar back pain NEURLOGICAL: No LOC, Sz or syncope, blurred vision dizziness or abnormality. BEHAVIORAL/PSYCH: Negative. ENDOCRINE: Negative. Objective - Vital Signs Vital signs: Vital Signs Temp 97.6 F 04/04/19 04:01 Pulse 74 04/04/19 04:01 Resp 19 04/04/19 04:01 BP 95/55 04/04/19 04:01 Pulse Ox 94 L 04/04/19 04:01 Intake & Output 04/03/19 04/03/19 04/04/19 06:59 18:59 06:59 Intake Total 280 20 Output Total 458 650 405 Balance -737 -820 -582 Weight 114.5 kg Intake: IV 280 20 0.9NS 280 20 Output: Urine 458 650 405 Other: Voiding Method Indwelling Catheter Indwelling Catheter Indwelling Catheter # Voids 0 # Bowel Movements 1 1 ABP, PAP, CO, CI - Last Documented Arterial Blood Pressure 116/50 Pulmonary Artery Pressure 28/11 Cardiac Output 7.4 Cardiac Index 3.4 - Exam General Appearance: Alert, cooperative, no distress, appears stated age. is at bedside. Neck HEENT: Supple, no lymphadenopathy, no thyroid enlargement, no carotid bruits. Lungs: Decrease breath some bilateral. Chest Wall: Incision from his surgery with dressing in place Heart: Irregular rate and rhythm, S1, S2 normal, no murmur, rub or gallop. Back: Symmetric, no curvature, ROM normal, no CVA tenderness. Abdomen: Soft, non-tender, bowel sounds active all four quadrants, no masses, no organomegaly. Uribe catheter draining clear harvinder urine Extremities: Trace edema all multiple joint involvement with RA.. Pulses: 2+ and symmetric. Skin: Skin color, texture, tugor normal, no rashes or lesions. Neurologic: Alert oriented x3 cranial nerves II through XII intact, no motor def icit, no abnormal balance or gait. - Labs CBC & Chem 7: 04/04/19 05:55 04/04/19 05:55 Labs: Abnormal Lab Results - Last 24 Hours (Table) 04/03/19 04/03/19 04/03/19 Range/Units 05:28 05:28 07:50 WBC 15.9 H (3.8-10.6) k/uL RBC 2.78 L (4.30-5.90) m/uL Hgb 8.4 L (13.0-17.5) gm/dL Hct 25.4 L (39.0-53.0) % RDW 16.5 H (11.5-15.5) % Plt Count 127 L (150-450) k/uL Carbon Dioxide 18 L (22-30) mmol/L BUN 68 H (9-20) mg/dL Creatinine 3.15 H (0.66-1.25) mg/dL Glucose 178 H (74-99) mg/dL POC Glucose (mg/dL) 211 H (75-99) mg/dL Total Bilirubin 1.4 H (0.2-1.3) mg/dL Total Protein 5.7 L (6.3-8.2) g/dL 04/03/19 04/03/19 04/03/19 Range/Units 11:59 18:43 20:29 WBC (3.8-10.6) k/uL RBC (4.30-5.90) m/uL Hgb (13.0-17.5) gm/dL Hct (39.0-53.0) % RDW (11.5-15.5) % Plt Count (150-450) k/uL Carbon Dioxide (22-30) mmol/L BUN (9-20) mg/dL Creatinine (0.66-1.25) mg/dL Glucose (74-99) mg/dL POC Glucose (mg/dL) 176 H 121 H 127 H (75-99) mg/dL Total Bilirubin (0.2-1.3) mg/dL Total Protein (6.3-8.2) g/dL 04/04/19 Range/Units 02:16 WBC (3.8-10.6) k/uL RBC (4.30-5.90) m/uL Hgb (13.0-17.5) gm/dL Hct (39.0-53.0) % RDW (11.5-15.5) % Plt Count (150-450) k/uL Carbon Dioxide (22-30) mmol/L BUN (9-20) mg/dL Creatinine (0.66-1.25) mg/dL Glucose (74-99) mg/dL POC Glucose (mg/dL) 140 H (75-99) mg/dL Total Bilirubin (0.2-1.3) mg/dL Total Protein (6.3-8.2) g/dL Assessment and Plan Assessment: Assessment and Plan Plan: 1. Triple-vessel coronary artery disease: Post 5 vessel bypass surgery successfully, continue patient on sepsis from her continue aggressive pulmonary toileting. 2. History of non-ST elevated myocardial infarction, coronary artery disease and multiple stents. Just had 5 vessel bypass surgery and doing well in his recovery so far 3. Diabetes mellitus type 2 with end organ damage. Decrease Levemir to 45 units units in the morning, increase NovoLog scheduled 12 units with meals and continue NovoLog scale.. 4. Paroxysmal atrial fibrillation. Start him back on Eliquis whenever okay by cardiothoracic. Patient is on oral amiodarone and Lopressor. 5. Hypertension. Continue Lopressor but discontinue amlodipine. Midodrine has been started. 6. Hyperlipidemia. Continue atorvastatin 40 mg daily 7. Chronic kidney disease. Monitor renal function and avoid nephrotoxic agents. 8. Obstructive sleep apnea with home CPAP. 9. Mechanical ventilation post CABG: Doing very well off mechanical ventilation still on O2 pulse ox running in the 90s. 10. History of ventricular tachycardia and cardiomyopathy status post AICD, stable 11. Gastroesophageal reflux disease. Continue Protonix 12. Acute kidney injury with chronic kidney disease stage 3. Avoid nephrotoxic agents. Nephrology consult. 13. Benign prostatic hypertrophy. Continue Flomax. Discharge plan: Most likely subacute rehab or inpatient rehab. Consult with Dr. Haji
[2019-04-04 11:22] LABS: Glucose,Whole Blood 200 mg/dL (75-99)
[2019-04-04 11:30] LABS: Appearance,Urine Cloudy (Clear); Bacteria,Urine Rare /hpf; Bilirubin,Urine Negative (Negative); Blood,Urine Small (Negative); Color,Urine Yellow; Glucose,Urine (UA) Negative (Negative); Hyaline Casts,Urine 7 /lpf (0-2); Ketones,Urine Negative (Negative); Leukocyte Esterase,Urine Trace (Negative); Mucus,Urine Rare /hpf; Nitrite,Urine Negative (Negative); Protein,Urine 1+ (Negative); RBC,Urine 17 /hpf (0-5); Specific Gravity,Urine 1.019 (1.001-1.035); Squamous Epithelial Cell,Urine <1 /hpf (0-4); WBC,Urine 4 /hpf (0-5)
[2019-04-04 12:06] LABS: Glucose,Whole Blood 181 mg/dL (75-99)
--- NOTE | 2019-04-04 13:43 | P.PN ---
Subjective Progress Note Date: 04/04/19 Principal diagnosis: Coronary artery disease. The patient is seen today 04/04/2019 in follow-up on the intensive care unit. He is currently sitting up in a chair at the bedside. Awake and alert in no acute distress. He is currently maintaining O2 saturation in the low 90s on room air. He's afebrile. Hemodynamically stable. X-ray still shows slight improvement in the basilar airspace disease. He received additional Lasix 60 mg IVP 1 today. Currently in a negative balance. His appetite is poor. White count 15.5. Hemoglobin 7.5. Creatinine 3.20. He remains on bronchodilators, amiodarone, anticoagulated with Eliquis. Objective - Vital Signs Vital signs: Vital Signs Temp 97.8 F 04/04/19 13:00 Pulse 73 04/04/19 13:00 Resp 17 04/04/19 13:00 BP 104/61 04/04/19 13:00 Pulse Ox 92 L 04/04/19 13:00 Intake & Output 04/03/19 04/04/19 04/04/19 18:59 06:59 18:59 Intake Total 20 150 Output Total 650 465 260 Balance -630 -465 -110 Weight 114.4 kg Intake: IV 20 0.9NS 20 Intake, IV Titration 150 Amount Albumin Human 25% 50 ml 50 In Empty Bag 1 bag @ 50 mls/hr IVPB ONCE ONE Rx#: [id number] Calcium Gluconate 1 gm In 100 Sodium Chloride 0.9% 100 ml @ 100 mls/hr IVPB ONCE ONE Rx#:[id number] Output: Urine 650 465 260 Other: Voiding Method Indwelling Catheter Indwelling Catheter # Voids 0 # Bowel Movements 1 1 ABP, PAP, CO, CI - Last Documented Arterial Blood Pressure 116/50 Pulmonary Artery Pressure 28/11 Cardiac Output 7.4 Cardiac Index 3.4 - Exam GENERAL EXAM: Awake alert pleasant 73-year-old gentleman, comfortable in no apparent distress. On room air. HEAD: Normocephalic. EYES: Normal reaction of pupils, equal size. NOSE: Clear with pink turbinates. THROAT: No erythema or exudates. NECK: No masses, no JVD. CHEST: Dressing dry and intact. Heart Hugger in place. LUNGS: Equal air entry with crackles in the bilateral posterior bases CVS: S1 and S2 normal with no audible murmur, irregular rhythm. ABDOMEN: No hepatosplenomegaly, no guarding or rigidity. SPINE: No scoliosis or deformity SKIN: No rashes CENTRAL NERVOUS SYSTEM: No focal deficits, tone is normal in all 4 extremities. EXTREMITIES: There is trace peripheral edema. No clubbing, no cyanosis. Peripheral pulses are intact. - Labs CBC & Chem 7: 04/04/19 05:55 04/04/19 05:55 Labs: Abnormal Lab Results - Last 24 Hours (Table) 04/03/19 04/03/19 04/04/19 Range/Units 18:43 20:29 02:16 WBC (3.8-10.6) k/uL RBC (4.30-5.90) m/uL Hgb (13.0-17.5) gm/dL Hct (39.0-53.0) % RDW (11.5-15.5) % Sodium (137-145) mmol/L Carbon Dioxide (22-30) mmol/L BUN (9-20) mg/dL Creatinine (0.66-1.25) mg/dL Glucose (74-99) mg/dL POC Glucose (mg/dL) 121 H 127 H 140 H (75-99) mg/dL Calcium (8.4-10.2) mg/dL Ionized Calcium Julius (4.5-5.3) mg/dL Magnesium (1.6-2.3) mg/dL Urine Protein (Negative) Urine Blood (Negative) Ur Leukocyte Esterase (Negative) Urine RBC (0-5) /hpf Urine Bacteria (None) /hpf Hyaline Casts (0-2) /lpf Urine Mucus (None) /hpf 04/04/19 04/04/19 04/04/19 Range/Units 05:55 05:55 06:58 WBC 15.5 H (3.8-10.6) k/uL RBC 2.49 L (4.30-5.90) m/uL Hgb 7.5 L (13.0-17.5) gm/dL Hct 22.8 L (39.0-53.0) % RDW 16.3 H (11.5-15.5) % Sodium 136 L (137-145) mmol/L Carbon Dioxide 20 L (22-30) mmol/L BUN 82 H (9-20) mg/dL Creatinine 3.20 H (0.66-1.25) mg/dL Glucose 138 H (74-99) mg/dL POC Glucose (mg/dL) 153 H (75-99) mg/dL Calcium 8.1 L (8.4-10.2) mg/dL Ionized Calcium Julius 4.3 L (4.5-5.3) mg/dL Magnesium 2.9 H (1.6-2.3) mg/dL Urine Protein (Negative) Urine Blood (Negative) Ur Leukocyte Esterase (Negative) Urine RBC (0-5) /hpf Urine Bacteria (None) /hpf Hyaline Casts (0-2) /lpf Urine Mucus (None) /hpf 04/04/19 04/04/19 04/04/19 Range/Units 10:42 11:21 12:04 WBC (3.8-10.6) k/uL RBC (4.30-5.90) m/uL Hgb (13.0-17.5) gm/dL Hct (39.0-53.0) % RDW (11.5-15.5) % Sodium (137-145) mmol/L Carbon Dioxide (22-30) mmol/L BUN (9-20) mg/dL Creatinine (0.66-1.25) mg/dL Glucose (74-99) mg/dL POC Glucose (mg/dL) 200 H 181 H (75-99) mg/dL Calcium (8.4-10.2) mg/dL Ionized Calcium Julius (4.5-5.3) mg/dL Magnesium (1.6-2.3) mg/dL Urine Protein 1+ H (Negative) Urine Blood Small H (Negative) Ur Leukocyte Esterase Trace H (Negative) Urine RBC 17 H (0-5) /hpf Urine Bacteria Rare H (None) /hpf Hyaline Casts 7 H (0-2) /lpf Urine Mucus Rare H (None) /hpf Assessment and Plan Assessment: Impression: #1 Coronary artery disease with significant disease involving the proximal LAD and left main. Status post coronary artery bypass grafting utilizing a RAMIREZ to the LAD, saphenous vein grafts to the diag, LVB, PDA. Left radial arterial graft to the OM1 #2 Previous history of coronary artery disease with stent placement #3 Ischemic cardiomyopathy and ventricular tachycardia status post AICD placement. #4 Atrial fibrillation currently on amiodarone. #5 Acute renal failure current creatinine 3.20. #6 Hyperlipidemia. #7 Hypertension. #8 History of pulmonary embolism. #9 Obstructive sleep apnea utilizing CPAP. 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 #11 Diabetes mellitus. #12 Peripheral neuropathy. #13 History of gout. #14 Chronic bronchitis, currently inactive and stable. FEV1 value 63% of predicted. Plan: The patient was seen and evaluated by Dr. Alvarado. Chest x-ray, labs reviewed. He did receive a dose of IV Lasix this morning. On room air. On oral amiodarone for A. fib. He needs increased encouragement regarding the use the incentive spirometer and cough and deep breathing exercises. We will increase his activity as tolerated. We will continue to follow and make further recommendations based on his clinical status. I, the cosigning physician, performed a history & physical examination of the patient. Lungs sounds with crackles in the bilateral posterior bases. Maintaining good O2 saturations in the 90s on room air.. I discussed the assessment and plan of care with my nurse practitioner, Ashlie Rodas. I attest to the above note as dictated by her.
[2019-04-04 16:49] LABS: Glucose,Whole Blood 176 mg/dL (75-99)
--- NOTE | 2019-04-04 17:53 | PN ---
PROGRESS NOTE Rafal is a 73-year-old gentleman with CAD status post CABG. The patient is feeling better, more alert and awake and remains in atrial fibrillation with controlled ventricular rate. He has been started back on Eliquis that he was on prior. On exam, heart rate 70 beats per minute, irregular. Blood pressure 92/56, respirations 18. Chest exam reveals diminished air entry at the bases. Heart exam reveals first and second heart sounds, irregular rhythm. Exam of the extremities reveals mild edema. Peripheral pulses are felt. LAB: Show BUN of 82, creatinine is 3.2, hemoglobin is 7.5. ASSESSMENT: 1. Coronary artery disease status post CABG. 2. Persistent atrial fibrillation with controlled ventricular rate. 3. Renal insufficiency. 4. Respiratory insufficiency. PLAN: Continue current medications. MMODL / IJN: [id number] /
[2019-04-04 20:32] LABS: Glucose,Whole Blood 123 mg/dL (75-99)
[2019-04-05 02:07] LABS: Glucose,Whole Blood 71 mg/dL (75-99)
[2019-04-05] MEDS: INSULIN ASPART (NovoLOG) 100 UNIT/ML VIAL SQ SCH ×8 (04:28→21:16)
[2019-04-05 05:52] LABS: Anisocytosis Slight; Basophils % (A) 0 %; Eosinophils # (A) 0.1 k/uL (0-0.7); Eosinophils % (A) 1 %; HCT 23.2 % (39.0-53.0); HGB 7.5 gm/dL (13.0-17.5); Hypochromasia Slight; Lymphocytes # (A) 0.8 k/uL (1.0-4.8); Lymphocytes % (A) 7 %; MCH 29.6 pg (25.0-35.0); MCHC 32.4 g/dL (31.0-37.0); MCV 91.4 fL (80.0-100.0); Mean Platelet Volume 7.4; Monocytes # (A) 0.8 k/uL (0-1.0); Monocytes % (A) 7 %; Neutrophils # (A) 9.8 k/uL (1.3-7.7); Neutrophils % (A) 83 %; Platelet Count 180 k/uL (150-450); Poikilocytosis Slight; RBC 2.53 m/uL (4.30-5.90); RDW 16.3 % (11.5-15.5); WBC 11.8 k/uL (3.8-10.6)
[2019-04-05 05:55] LABS: Calcium 8.2 mg/dL (8.4-10.2); Potassium 4.2 mmol/L (3.5-5.1)
[2019-04-05 07:10] LABS: Glucose,Whole Blood 100 mg/dL (75-99)
[2019-04-05] MEDS: INSULIN DETEMIR (LEVEMIR) 100 UNIT/ML SYR SQ SCH ×2 (07:11→10:23)
[2019-04-05] MEDS: MIDODRINE 5 MG TAB PO SCH ×3 (07:16→17:19)
[2019-04-05] MEDS: PANTOPRAZOLE 40 MG TABLET PO SCH (07:16)
--- NOTE | 2019-04-05 07:35 | XR ---
EXAMINATION TYPE: XR chest 1V DATE OF EXAM: 04/05/2019 HISTORY: Hx of CHF. REFERENCE: Previous study dated 04/04/2019. FINDINGS: There has been a midline sternotomy. There is a unipolar pacemaker place on the left. The heart is enlarged. There is bibasilar airspace disease. There are small effusions. IMPRESSION: 1. CONTINUING CARDIOMEGALY. 2. BIBASILAR AIRSPACE DISEASE, WORSE ON THE LEFT THAN THE RIGHT. 3. SMALL, BILATERAL EFFUSIONS.
[2019-04-05] MEDS: IPRATROPIUM-ALBUTEROL 3 ML NEB INHALATION SCH ×4 (08:14→19:55)
[2019-04-05] MEDS ORDERED: SENNOSIDES-DOCUSATE SODIUM 1 EACH TAB PO PRN (08:43)
[2019-04-05] MEDS: AMIODARONE 200 MG TAB PO SCH ×2 (09:20→20:38)
[2019-04-05] MEDS: ATORVASTATIN 40 MG TAB PO SCH (09:20)
[2019-04-05] MEDS: ASPIRIN 81 MG PO SCH (09:20)
[2019-04-05] MEDS: COLCHICINE 0.6 MG EACH PO SCH (09:21)
[2019-04-05] MEDS: METOPROLOL TARTRATE 25 MG TAB PO SCH ×2 (09:21→20:38)
[2019-04-05] MEDS: APIXABAN 2.5 MG TABLET PO SCH ×2 (09:21→20:38)
[2019-04-05] MEDS: ALLOPURINOL 100 MG TAB PO SCH ×2 (09:21→20:38)
[2019-04-05] MEDS: LIDOCAINE 5% PATCH TOPICAL SCH (09:22)
--- NOTE | 2019-04-05 09:43 | P.PN ---
Subjective Progress Note Date: 04/05/19 This is a 73-year-old male patient of Dr. Guevara with past medical history for coronary artery disease, paroxysmal atrial fibrillation on eliquis, diabetes mellitus type II insulin requiring with diabetic neuropathy, chronic kidney disease, kidney stones, COPD, obstructive sleep apnea with CPAP, hyperlipidemia, hypertension, and rheumatoid arthritis and cirrhotic arthritis, gout, benign prostatic hypertrophy. His primary care physician is Dr. Guevara he follows with Dr. 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 He had a heart catheterization done in 2005 that showed moderate disease involving the LAD and diagonal was mild involvement patient had some irregular lesion of the circumflex. He was seen at [facility] for chest pain and non-ST elevated [place] 2010. At that time, his heart catheterization revealed an acutely occluded right coronary artery, significant disease in the moderate size third obtuse marginal branch with moderate disease in the LAD and left circumflex. Ejection fraction was 3540 percent. He underwent successful stenting of the distal RCA. Later in his room, patient developed ventricular fibrillation and was quickly resuscitated and underwent heart catheterization and underwent angioplasty and stenting of the PLV branch of the right coronary artery. On 09/14/2010, patient underwent a single chamber cardioverter defibrillator implantation. His echoca rdiogram revealed mild pulmonary hypertension, ejection fraction 40% at that time. In 2014 he underwent heart catheterization finding 45% proximal right coronary artery stenosis and significant mid LAD lesion which underwent PTCA and stenting of the mid LAD. Patient's also gives history of a septic knee joint needing washout which was done at [facility] at that time patient developed atrial fibrillation in the postop period. He also had a run of V. tach for which his AICD fired. Ever since that episode of sepsis, patient has had chronic kidney disease. Regarding his diabetes, he follows with Dr. Yoanna Mccormick. He is currently on Trulicity 1.5mg weekly, Lantus 56 units in the morning and recently changed to 18 units of NovoLog with meals. His last hemoglobin A1c was 7.4 in December at the [place]. Regarding rheumatoid arthritis and psoriatic arthritis, patient follows with Dr. Shelton. In the past he has been on methotrexate, Enbrel and Humira. He was recently on Ilaris but this was stopped when he started having cardiac problems as there is concern for arrhythmia. He contacted his lease out man and she had recommended stopping it. The patient have follow-up in the cardiology office in December of this year and underwent a Lexiscan stress test that did not demonstrate any ischemia. Over the past 3-4 weeks she has had intermittent substernal chest pain with radiation to his arms. He was recommended for heart catheterization which was completed yesterday that found proximal LAD stenosis 60%, mid LAD stenosis 30%, circumflex stenosis 90% and RCA stenosis 60. Cardiothoracic surgery was consulted for recommendations regarding CABG versus stenting. Carotid ultrasound revealed mild plaque bilateral bifurcations but no significant stenosis. Chest x-ray reveals no acute cardiopulmonary process. Underlying COPD. patient has been evaluated by cardiothoracic surgery. Plan for tomorrow is a repeat heart catheterization to further evaluate LAD. 03/26: Patient underwent heart catheterization today with Dr. SANAM Hinds finding significant lesion in the proximal LAD and area of 2.6 mm2 also within the left main and heavy circumferential desiccation lesion in the area of 3.2 mm2. Both were deemed significant and requires bypass surgery. The patient is seen today while in the recovery area. He denies having any chest pain or shortness of breath at this time. Blood sugars will need to be well-controlled and we will make arrangements for Levemir to be 30 units in the morning and 40 at bedtime. 03/27: The patient complains of nasal congestion since he had his procedure yesterday. We will add Flonase. Regarding blood sugars nighttime blood sugar remains quite elevated and we will make additional changes to his insulins by adding NovoLog scheduled 3 units with each meal and increase nighttime Levemir to 45 units. He is scheduled for open heart on Saturday. 03/28: Patient is resting comfortably in bed without any acute distress. Patient has no complaints at this time. Patient did not receive his Levemir last night due to his blood sugar being 112. Patient's blood sugar was elevated in 150s this morning due to missing the dose of Levemir. Patient is scheduled for open heart surgery on Saturday. 03/29: Patient is sitting up in bed with at the bedside. Patient is in no acute distress. Patient has no complaints or concerns at this time. He slept well last night. Patient was given his Levemir last night his blood sugar this morning was 120. Patient is waiting to have open heart surgery on Saturday. Questions were answered. 03/30: Patient will be going for open heart surgery today we will be back in ICU on the respirator and insulin drip. 03/31: Patient is off mechanical ventilation sitting in his chair less pain and discomfort still have chest tube complaining of mild chest pain from his surgery but no other major complaint. 04/01: Patient is doing much better most of his tube out's 1 getting catheter was removed, blood sugar is much better pulse rate is running in the 60s and 70s, patient is hemodynamically stable no transfusion done last 24 hours. 04/02: Blood sugars are stable but he is still on insulin drip which we will transition to Levemir 40 units this morning, discontinue the insulin drip, start NovoLog 10 units with meals along with scale every 4 hours. Patient is complaining of back pain and neck pain. He has been tried on Lidoderm cream without improvement and now lidocaine patch. We will add in baclofen as needed. All chest tubes and Cordis out today. Uribe catheter remained for retention and patient has been started back on Flomax. Consultation In place for Dr. Haji. Patient encouraged to increase ambulation. 04/03: Patient remains in the intensive care unit. monitoring and evaluation advisor is A. fib with controlled rate. Repeat echocardiogram has been ordered by cardiology. Back and neck pain appeared to be improved from yesterday. He has had marginal urine output and has received fluid boluses. Due to hypotension, midodrine added, Norvasc discontinued. IV Lasix 60 mg 1 dose was ordered for today. Uribe remains in place and patient continued on Flomax. Consult was added for nephrology regarding acute kidney injury. Repeat blood work today reveals white count of 15.9, hemoglobin 8.4, platelet count 127. BUN 68 and creatinine 3.15. Blood sugars are running between 178 and 211. We are increasing Levemir to 65 units which will start tomorrow and increasing NovoLog with meals to 22 units 3 times daily. Patient is continued on NovoLog scale. Dr. Haji consult is esha yang as he is not available. 04/04: Patient remains in intensive care unit, his sitting in the chair he appears a bit weaker today his hemoglobin is is down to 7.6, he had an episode of low sugar is not eating much adjusted his insulin regimen to Levemir 45 units in the morning as well as decreasing his Humalog to 12 units plus scale with meals. Patient continues to be somewhat short of breath, he continues to have shallow breathing, he is using incentive spirometer on and off, he is generally weak he will require subacute rehabilitation versus inpatient rehabilitation. 04/05: Patient is sitting up in a chair his feeling fatigued today he is having more diarrhea, we will check his stool for C. diff, he has episode of hyperglycemia yesterday subsequently we'll decrease his Levemir to 34 units in the morning along with 50% of his Humalog if his not eating greater than 50% of his meal and to hold if is less than 100, patient suffered from Odynophagia and he does have significant thrush we will start him on nystatin swish and swallow 5 mL before each meal and at bedtime, this was discussed with the nursing staff at the bedside. Review of systems: CONSTITUTIONAL: Overweight no acute respiratory distress, appears fatigued with minimal chills. EYES: No icterus sclerae, no conjunctivitis. EARS, NOSE, MOUTH, THROAT, and FACE: Positive for sore throat due to thrush, positive for odynophagia. RESPIRATORY: Mild shortness of breath no cough wheezes. CARDIOVASCULAR: Positive chest pain and angina with mild shortness of breath positive PND and orthopnea. GASTROINTESTINAL: No Abd pain, Nausea or vomiting, positive for Diarrhea or constipation, No GI Bleed, no distention or masses. GENITOURINARY: Negative for Hematuria or UTI, no kidney stones. INTEGUMENT/BREAST: Negative for any muscular injury with mild osteoarthritis.. HEMATOLOGIC/LYMPHATIC: Negative for bleed or purpura. MUSCULOSKELTAL: Multiple muscle and tendon involvement generalized arthralgia and myalgia. Reports neck pain. Reports lumbar back pain NEURLOGICAL: No LOC, Sz or syncope, blurred vision dizziness or abnormality. BEHAVIORAL/PSYCH: Negative. ENDOCRINE: Negative. Objective - Vital Signs Vital signs: Vital Signs Temp 97.5 F L 04/05/19 04:00 Pulse 66 04/05/19 05:00 Resp 15 04/05/19 05:00 BP 118/66 04/05/19 05:00 Pulse Ox 98 04/05/19 05:00 Intake & Output 04/04/19 04/04/19 04/05/19 06:59 18:59 06:59 Intake Total 150 Output Total 465 945 430 Balance -465 -370 -430 Weight 114.4 kg 114.2 kg Intake: Intake, IV Titration 150 Amount Albumin Human 25% 50 ml 50 In Empty Bag 1 bag @ 50 mls/hr IVPB ONCE ONE Rx#: [id number] Calcium Gluconate 1 gm In 100 Sodium Chloride 0.9% 100 ml @ 100 mls/hr IVPB ONCE ONE Rx#:[id number] Output: Urine 465 520 430 Other: Voiding Method Indwelling Catheter Indwelling Catheter Indwelling Catheter # Bowel Movements 1 2 ABP, PAP, CO, CI - Last Documented Arterial Blood Pressure 116/50 Pulmonary Artery Pressure 28/11 Cardiac Output 7.4 Cardiac Index 3.4 - Exam General Appearance: Alert, cooperative, no distress, appears stated age. is at bedside. Neck HEENT: Supple, no lymphadenopathy, no thyroid enlargement, no carotid bruits. Lungs: Decrease breath some bilateral. Chest Wall: Incision from his surgery with dressing in place Heart: Irregular rate and rhythm, S1, S2 normal, no murmur, rub or gallop. Back: Symmetric, no curvature, ROM normal, no CVA tenderness. Abdomen: Soft, non-tender, bowel sounds active all four quadrants, no masses, no organomegaly. Uribe catheter draining clear harvinder urine Extremities: Trace edema all multiple joint involvement with RA.. Pulses: 2+ and symmetric. Skin: Skin color, texture, tugor normal, no rashes or lesions. Neurologic: Alert oriented x3 cranial nerves II through XII intact, no motor deficit, no abnormal balance or gait. - Labs CBC & Chem 7: 04/05/19 05:21 04/05/19 05:21 Labs: Abnormal Lab Results - Last 24 Hours (Table) 04/04/19 04/04/19 04/04/19 Range/Units 05:55 05:55 06:58 WBC 15.5 H (3.8-10.6) k/uL RBC 2.49 L (4.30-5.90) m/uL Hgb 7.5 L (13.0-17.5) gm/dL Hct 22.8 L (39.0-53.0) % RDW 16.3 H (11.5-15.5) % Sodium 136 L (137-145) mmol/L Carbon Dioxide 20 L (22-30) mmol/L BUN 82 H (9-20) mg/dL Creatinine 3.20 H (0.66-1.25) mg/dL Glucose 138 H (74-99) mg/dL POC Glucose (mg/dL) 153 H (75-99) mg/dL Calcium 8.1 L (8.4-10.2) mg/dL Ionized Calcium Julius 4.3 L (4.5-5.3) mg/dL Magnesium 2.9 H (1.6-2.3) mg/dL Urine Protein (Negative) Urine Blood (Negative) Ur Leukocyte Esterase (Negative) Urine RBC (0-5) /hpf Urine Bacteria (None) /hpf Hyaline Casts (0-2) /lpf Urine Mucus (None) /hpf 04/04/19 04/04/19 04/04/19 Range/Units 10:42 11:21 12:04 WBC (3.8-10.6) k/uL RBC (4.30-5.90) m/uL Hgb (13.0-17.5) gm/dL Hct (39.0-53.0) % RDW (11.5-15.5) % Sodium (137-145) mmol/L Carbon Dioxide (22-30) mmol/L BUN (9-20) mg/dL Creatinine (0.66-1.25) mg/dL Glucose (74-99) mg/dL POC Glucose (mg/dL) 200 H 181 H (75-99) mg/dL Calcium (8.4-10.2) mg/dL Ionized Calcium Julius (4.5-5.3) mg/dL Magnesium (1.6-2.3) mg/dL Urine Protein 1+ H (Negative) Urine Blood Small H (Negative) Ur Leukocyte Esterase Trace H (Negative) Urine RBC 17 H (0-5) /hpf Urine Bacteria Rare H (None) /hpf Hyaline Casts 7 H (0-2) /lpf Urine Mucus Rare H (None) /hpf 04/04/19 04/04/19 04/05/19 Range/Units 16:47 20:31 02:05 WBC (3.8-10.6) k/uL RBC (4.30-5.90) m/uL Hgb (13.0-17.5) gm/dL Hct (39.0-53.0) % RDW (11.5-15.5) % Sodium (137-145) mmol/L Carbon Dioxide (22-30) mmol/L BUN (9-20) mg/dL Creatinine (0.66-1.25) mg/dL Glucose (74-99) mg/dL POC Glucose (mg/dL) 176 H 123 H 71 L (75-99) mg/dL Calcium (8.4-10.2) mg/dL Ionized Calcium Julius (4.5-5.3) mg/dL Magnesium (1.6-2.3) mg/dL Urine Protein (Negative) Urine Blood (Negative) Ur Leukocyte Esterase (Negative) Urine RBC (0-5) /hpf Urine Bacteria (None) /hpf Hyaline Casts (0-2) /lpf Urine Mucus (None) /hpf Microbiology - Last 24 Hours (Table) 04/04/19 10:42 Urine Culture - Preliminary Urine,Catheterized Assessment and Plan Assessment: Assessment and Plan Plan: 1. Triple-vessel coronary artery disease: Post 5 vessel bypass surgery successfully, continue patient on sepsis from her continue aggressive pulmonary toileting. 2. History of non-ST elevated myocardial infarction, coronary artery disease and multiple stents. Just had 5 vessel bypass surgery and doing well in his recovery so far 3. Diabetes mellitus type 2 with end organ damage. Decrease Levemir to 34 units units in the morning, increase NovoLog scheduled 12 units with meals and continue NovoLog scale, also hold Humalog for BGM was in 100 and or get 50% efficacy less than 50% and anemia. 4. Paroxysmal atrial fibrillation. Start him back on Eliquis whenever okay by cardiothoracic. Patient is on oral amiodarone and Lopressor. 5. Hypertension. Continue Lopressor but discontinue amlodipine. Midodrine has been started. 6. Hyperlipidemia. Continue atorvastatin 40 mg daily 7. Chronic kidney disease. Monitor renal function and avoid nephrotoxic agents. 8. Obstructive sleep apnea with home CPAP. 9. Diarrhea. Check the patient for clostridium difficile. 10. History of ventricular tachycardia and cardiomyopathy status post AICD, stable 11. Gastroesophageal reflux disease. Continue Protonix 12. Acute kidney injury with chronic kidney disease stage 3. Avoid nephrotoxic agents. Nephrology consult. 13. Benign prostatic hypertrophy. Continue Flomax. 14. Thrush. Start the patient on nystatin swish and swallow 5 mL before each meal and at bedtime. 15. Medical debility. Physical therapy evaluation likely will require subacute rehabilitation.
--- NOTE | 2019-04-05 10:09 | P.PN ---
Subjective Progress Note Date: 04/05/19 Principal diagnosis: Triple-vessel coronary artery disease. 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 POD #6 quintuple coronary artery bypass grafting using the left internal mammary artery to the left anterior descending coronary artery, left radial artery from the aorta to the first obtuse marginal coronary artery, reverse greater saphenous vein graft from the aorta to the diagonal coronary artery, reverse greater saphenous vein graft from the aorta to the posterior descending coronary artery, and reverse greater saphenous vein graft from aorta to the posterior lateral branch of the right coronary artery. Bilateral pulmonary vein isolation using the bipolar radiofrequency energy by Atricure, exclusion of the left atrial appendage using a 35 mm Atriclip, endoscopic left radial artery harvest, endoscopic harvesting of the left greater saphenous vein from the groin to above the ankle level and right greater saphenous vein from the groin to below the knee level, intraoperative graft flow measurements using the Medistim system, intraoperative transesophageal echocardiogram and epi-aortic scanning. Postoperative acute blood loss anemia, expected outcome due to hemodilution and cardiopulmonary bypass. Postoperative thrombocytopenia, expected outcome due to his preoperative thrombocytopenia and hemodilution. Postoperative controlled atrial fibrillation, expected due to his history of paroxysmal atrial fibrillation and known potential outcome from cardiac surgery Postoperative acute on chronic kidney disease, unexpected but potential outcome due to his baseline chronic kidney disease along with borderline hypotension The patient is currently sitting up in the recliner in the intensive care unit in no acute distress. States lower back pain which is better since addition of Lidoderm patch, denies chest pain, does complain of mild shortness of breath, complains of sore throat and nasal congestion as well as some diarrhea. Patient requires reminders to cough and deep breathe. Remains in controlled atrial fibrillation, restarted on Eliquis. No other new concerns. Objective - Vital Signs Vital signs: Vital Signs Temp 97.6 F 04/05/19 08:00 Pulse 87 04/05/19 09:00 Resp 14 04/05/19 09:00 BP 105/59 04/05/19 09:00 Pulse Ox 95 04/05/19 09:00 Intake & Output 04/04/19 04/05/19 04/05/19 18:59 06:59 18:59 Intake Total 150 Output Total 520 535 130 Balance -370 -535 -130 Weight 114.2 kg Intake: Intake, IV Titration 150 Amount Albumin Human 25% 50 ml 50 In Empty Bag 1 bag @ 50 mls/hr IVPB ONCE ONE Rx#: [id number] Calcium Gluconate 1 gm In 100 Sodium Chloride 0.9% 100 ml @ 100 mls/hr IVPB ONCE ONE Rx#:[id number] Output: Urine 520 535 130 Other: Voiding Method Indwelling Catheter Indwelling Catheter # Bowel Movements 2 1 ABP, PAP, CO, CI - Last Documented Arterial Blood Pressure 116/50 Pulmonary Artery Pressure 28/11 Cardiac Output 7.4 Cardiac Index 3.4 - Constitutional General appearance: Present: cooperative, no acute distress, obese - Respiratory Details: Lungs sounds diminished bilaterally. Respirations even, nonlabored. Currently on room air with oxygen saturation 96%. Able to achieve 1000 mL on his incentive spirometry. Strong cough with productive of thin yellowish white sputum. - Cardiovascular Details: S1, S2 present. Irregular rate and rhythm, controlled atrial fibrillation on telemetry. Sternum stable. Palpable peripheral pulses bilaterally. Trace generalized edema present. No calf pain or tenderness noted. Heart hugger in place with patient intermittently demonstrating appropriate use with much encouragement, antiembolism stockings, SCDs present. - Gastrointestinal Gastrointestinal Comment(s): Abdomen soft, nontender, nondistended, obese. Active bowel sounds present 4 quadrants. Tolerating diet. Positive loose bowel movement. - Genitourinary Genitourinary Comment(s): Uribe present draining concentrated yellow urine. Output 20-75 mL/h overnight, mostly in the 40s range. - Integumentary Integumentary Comment(s): Skin is warm and dry with evidence of good perfusion. Anterior chest incision well approximated. Left radial artery harvest site well approximated, patient able to move all fingers, asphalt raker appropriately, denies numbness or tingling. Bilateral lower extremity EVH sites well approximated. - Neurologic Neurologic: Present: CNII-XII intact - Musculoskeletal Musculoskeletal: Present: gait normal, generalized weakness, strength equal bilaterally - Psychiatric Psychiatric: Present: A&O x's 3, appropriate affect, intact judgment & insight - Allied health notes Allied health notes reviewed: nursing - Labs CBC & Chem 7: 04/05/19 05:21 04/05/19 05:21 Labs: Abnormal Lab Results - Last 24 Hours (Table) 04/04/19 04/04/19 04/04/19 Range/Units 10:42 11:21 12:04 WBC (3.8-10.6) k/uL RBC (4.30-5.90) m/uL Hgb (13.0-17.5) gm/dL Hct (39.0-53.0) % RDW (11.5-15.5) % Neutrophils # (1.3-7.7) k/uL Lymphocytes # (1.0-4.8) k/uL Sodium (137-145) mmol/L Carbon Dioxide (22-30) mmol/L BUN (9-20) mg/dL Creatinine (0.66-1.25) mg/dL POC Glucose (mg/dL) 200 H 181 H (75-99) mg/dL Calcium (8.4-10.2) mg/dL Urine Protein 1+ H (Negative) Urine Blood Small H (Negative) Ur Leukocyte Esterase Trace H (Negative) Urine RBC 17 H (0-5) /hpf Urine Bacteria Rare H (None) /hpf Hyaline Casts 7 H (0-2) /lpf Urine Mucus Rare H (None) /hpf 04/04/19 04/04/19 04/05/19 Range/Units 16:47 20:31 02:05 WBC (3.8-10.6) k/uL RBC (4.30-5.90) m/uL Hgb (13.0-17.5) gm/dL Hct (39.0-53.0) % RDW (11.5-15.5) % Neutrophils # (1.3-7.7) k/uL Lymphocytes # (1.0-4.8) k/uL Sodium (137-145) mmol/L Carbon Dioxide (22-30) mmol/L BUN (9-20) mg/dL Creatinine (0.66-1.25) mg/dL POC Glucose (mg/dL) 176 H 123 H 71 L (75-99) mg/dL Calcium (8.4-10.2) mg/dL Urine Protein (Negative) Urine Blood (Negative) Ur Leukocyte Esterase (Negative) Urine RBC (0-5) /hpf Urine Bacteria (None) /hpf Hyaline Casts (0-2) /lpf Urine Mucus (None) /hpf 04/05/19 04/05/19 04/05/19 Range/Units 05:21 05:21 07:09 WBC 11.8 H (3.8-10.6) k/uL RBC 2.53 L (4.30-5.90) m/uL Hgb 7.5 L (13.0-17.5) gm/dL Hct 23.2 L (39.0-53.0) % RDW 16.3 H (11.5-15.5) % Neutrophils # 9.8 H (1.3-7.7) k/uL Lymphocytes # 0.8 L (1.0-4.8) k/uL Sodium 135 L (137-145) mmol/L Carbon Dioxide 21 L (22-30) mmol/L BUN 85 H (9-20) mg/dL Creatinine 3.17 H (0.66-1.25) mg/dL POC Glucose (mg/dL) 100 H (75-99) mg/dL Calcium 8.2 L (8.4-10.2) mg/dL Urine Protein (Negative) Urine Blood (Negative) Ur Leukocyte Esterase (Negative) Urine RBC (0-5) /hpf Urine Bacteria (None) /hpf Hyaline Casts (0-2) /lpf Urine Mucus (None) /hpf Microbiology - Last 24 Hours (Table) 04/04/19 10:42 Urine Culture - Preliminary Urine,Catheterized - Imaging and Cardiology Chest x-ray: report reviewed, image reviewed Assessment and Plan Assessment: 1. Triple-vessel coronary artery disease, status post 5 vessel CABG 2. History of coronary artery disease and myocardial infarction with multiple stents to the RCA and LAD 3. V. fib arrest after stenting in 2010 with placement of Medtronic ICD 4. Mild to moderate left ventricular dysfunction 5. Hypertension 6. Hyperlipidemia 7. Type 2 diabetes mellitus with hemoglobin A1c 7.3% 8. Chronic kidney disease stage III 9. Paroxysmal atrial fibrillation on chronic Eliquis for anticoagulation, currently in normal sinus rhythm, status post bilateral pulmonary vein isolation and left atrial appendage ligation 10. Mild COPD with preoperative FEV1 63% of predicted 11. SUSAN with home CPAP use 12. Obesity 13. Family history of heart disease 14. Postoperative acute blood loss anemia, status post transfusion 15. Postoperative thrombocytopenia 16. Postoperative controlled atrial fibrillation 17. Postoperative acute on chronic kidney disease Plan: 1. Continue low-dose aspirin, statin, and beta cely. Will increase his beta cely as tolerated. 2. Continue amiodarone for atrial fibrillation prophylaxis, decreased to 200 mg twice daily. Continue Eliquis 3. Encourage incentive spirometry is 10 times every hour while awake. 4. Bronchodilators per pulmonology management. 5. Increase activity as tolerated, PT/OT/cardiac rehab following. 6. Start lasix 60 mg IVP BID with Zaroxolyn daily. Continue Midodrine 5 mg TID 7. Keep Uribe for another 24 hours for strict accurate intake and output. Continue Flomax 0.4 milligrams daily. 8. GI/DVT prophylaxis 9. Insulin management per primary care service. 10. Pain control with current medication regimen. Avoid Toradol due to his history of chronic kidney disease. 11. Avoid nephrotoxic agents 12. Continue to monitor daily labs and chest x-rays. Electrolyte replacement per protocol. No further transfusion. 13. Will change stool softners to PRN. C-diff ordered by Dr. Smith, as well as Nystatin. 14. More recommendations to follow based on patient's clinical course. Time with Patient: Greater than 30
[2019-04-05] MEDS: FUROSEMIDE 10 MG/ML 10 ML VIAL IV SCH ×2 (10:22→20:38)
[2019-04-05 10:23] LABS: Glucose,Whole Blood 110 mg/dL (75-99)
[2019-04-05] MEDS: TAMSULOSIN 0.4 MG CAP.ER.24H PO SCH (10:23)
[2019-04-05] MEDS: METOLAZONE 5 MG TAB PO SCH (10:23)
[2019-04-05 11:46] LABS: Glucose,Whole Blood 84 mg/dL (75-99)
--- NOTE | 2019-04-05 12:50 | P.PN ---
Subjective Progress Note Date: 04/05/19 On today's evaluation of 04/05/2019, seeing this patient for a follow-up. He is awake and alert on room air oxygen. His chest x-ray showing atelectatic changes especially left lung base. He still has edema in lower extremities bilaterally. He was given a dose of Zaroxolyn and he is also on IV Lasix a 60 mg every 12 hours. The patient has a creatinine of 3.17 which is essentially stable compared to yesterday. The white cell count is at 7.5. He is using incentive spirometer and achieving approximately a liter. He is not having any chest pain. He is in atrial fibrillation for now. His medications include amiodarone 200 mg by mouth twice a day, metoprolol 25 mg by mouth twice a day, aspirin, Eliquis 2.5 mg twice a day and Midrin was also added regarding his lower blood pressure. Insulin is at 34 units subcu along with 12 units with meals and the scale. His sternum stable clean and intact. No other significant events over the past 24 hours. Objective - Vital Signs Vital signs: Vital Signs Temp 97.6 F 04/05/19 08:00 Pulse 73 04/05/19 11:45 Resp 18 04/05/19 11:00 BP 118/66 04/05/19 11:00 Pulse Ox 94 L 04/05/19 11:00 Intake & Output 04/04/19 04/05/19 04/05/19 18:59 06:59 18:59 Intake Total 150 Output Total 520 535 290 Balance -370 -535 -290 Weight 114.2 kg Intake: Intake, IV Titration 150 Amount Albumin Human 25% 50 ml 50 In Empty Bag 1 bag @ 50 mls/hr IVPB ONCE ONE Rx#: [id number] Calcium Gluconate 1 gm In 100 Sodium Chloride 0.9% 100 ml @ 100 mls/hr IVPB ONCE ONE Rx#:[id number] Output: Urine 520 535 290 Other: Voiding Method Indwelling Catheter Indwelling Catheter # Bowel Movements 2 1 ABP, PAP, CO, CI - Last Documented Arterial Blood Pressure 116/50 Pulmonary Artery Pressure 28/11 Cardiac Output 7.4 Cardiac Index 3.4 - Exam GENERAL EXAM: Awake alert pleasant 73-year-old gentleman, comfortable in no apparent distress. On room air. HEAD: Normocephalic. EYES: Normal reaction of pupils, equal size. NOSE: Clear with pink turbinates. THROAT: No erythema or exudates. NECK: No masses, no JVD. CHEST: Dressing dry and intact. Heart Hugger in place. LUNGS: Equal air entry with crackles in the bilateral posterior bases CVS: S1 and S2 normal with no audible murmur, irregular rhythm. ABDOMEN: No hepatosplenomegaly, no guarding or rigidity. SPINE: No scoliosis or deformity SKIN: No rashes CENTRAL NERVOUS SYSTEM: No focal deficits, tone is normal in all 4 extremities. EXTREMITIES: There is trace peripheral edema. No clubbing, no cyanosis. Peripheral pulses are intact. - Labs CBC & Chem 7: 04/05/19 05:21 04/05/19 05:21 Labs: Abnormal Lab Results - Last 24 Hours (Table) 04/04/19 04/04/19 04/05/19 Range/Units 16:47 20:31 02:05 WBC (3.8-10.6) k/uL RBC (4.30-5.90) m/uL Hgb (13.0-17.5) gm/dL Hct (39.0-53.0) % RDW (11.5-15.5) % Neutrophils # (1.3-7.7) k/uL Lymphocytes # (1.0-4.8) k/uL Sodium (137-145) mmol/L Carbon Dioxide (22-30) mmol/L BUN (9-20) mg/dL Creatinine (0.66-1.25) mg/dL POC Glucose (mg/dL) 176 H 123 H 71 L (75-99) mg/dL Calcium (8.4-10.2) mg/dL 04/05/19 04/05/19 04/05/19 Range/Units 05:21 05:21 07:09 WBC 11.8 H (3.8-10.6) k/uL RBC 2.53 L (4.30-5.90) m/uL Hgb 7.5 L (13.0-17.5) gm/dL Hct 23.2 L (39.0-53.0) % RDW 16.3 H (11.5-15.5) % Neutrophils # 9.8 H (1.3-7.7) k/uL Lymphocytes # 0.8 L (1.0-4.8) k/uL Sodium 135 L (137-145) mmol/L Carbon Dioxide 21 L (22-30) mmol/L BUN 85 H (9-20) mg/dL Creatinine 3.17 H (0.66-1.25) mg/dL POC Glucose (mg/dL) 100 H (75-99) mg/dL Calcium 8.2 L (8.4-10.2) mg/dL 04/05/19 Range/Units 10:22 WBC (3.8-10.6) k/uL RBC (4.30-5.90) m/uL Hgb (13.0-17.5) gm/dL Hct (39.0-53.0) % RDW (11.5-15.5) % Neutrophils # (1.3-7.7) k/uL Lymphocytes # (1.0-4.8) k/uL Sodium (137-145) mmol/L Carbon Dioxide (22-30) mmol/L BUN (9-20) mg/dL Creatinine (0.66-1.25) mg/dL POC Glucose (mg/dL) 110 H (75-99) mg/dL Calcium (8.4-10.2) mg/dL Microbiology - Last 24 Hours (Table) 04/04/19 10:42 Urine Culture - Final Urine,Catheterized Assessment and Plan Plan: #1 Coronary artery disease with significant disease involving the proximal LAD and left main. Status post coronary artery bypass grafting utilizing a RAMIREZ to the LAD, saphenous vein grafts to the diag, LVB, PDA. Left radial arterial graft to the OM1 . The patient is postop day #6 following his cardiac surgery. He is doing well as he is recovering from his surgery. Sternum stable clean and intact. Chest x-ray shows atelectatic changes especially left lung base. Currently on room air oxygen. #2 Previous history of coronary artery disease with stent placement #3 Ischemic cardiomyopathy and ventricular tachycardia status post AICD placement. #4 Atrial fibrillation currently on amiodarone. The patient is also on long- term and to coagulation with Eliquis 2.5 mg by mouth twice a day. #5 Acute renal failure current creatinine 3.20. #6 Hyperlipidemia. #7 Hypertension. #8 History of pulmonary embolism. #9 Obstructive sleep apnea utilizing CPAP. She utilizing his CPAP therapy here in the hospital. 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 #11 Diabetes mellitus. #12 Peripheral neuropathy. #13 History of gout. #14 Chronic bronchitis, currently inactive and stable. FEV1 value 63% of predicted. #15 acute kidney injury in the creatinine stable at 3.1. The patient is producing adequate amount of urine output. He still on diuretics regarding lower extremity edema. The patient has underlying stage III chronic kidney disease. Plan Continue using incentive spirometer. The patient is achieving 1000 on his I asked. Chest x-ray was reviewed. Continue the diuretics. Keep the Uribe catheter in place. Increased level of activity as tolerated. We'll looking for transferring this patient to rehabilitation within next 24-48 hours and he will be going to [facility]. Chest x-ray was reviewed. Blood work was reviewed.
[2019-04-05] MEDS: NYSTATIN 100,000 UNIT/ML SUSP 500,000 UNIT/5 ML CUP PO SCH ×3 (13:14→21:40)
--- NOTE | 2019-04-05 13:24 | PN ---
PROGRESS NOTE This is a 73-year-old gentleman with history of coronary artery disease status post CABG. Making slow but steady recovery. Remains in atrial fibrillation with controlled ventricular rate. On exam, comfortable at rest. Vital signs are stable. Chest exam reveals diminished air entry at the bases. Heart exam reveals first and second heart sounds. Irregular rhythm. Exam of the extremities did not reveal any edema. Peripheral pulses are felt. Labs show a hemoglobin of 7.5, platelet count is 180. Potassium is 4.2, BUN is 85, creatinine is 3.1. ASSESSMENT: 1. Coronary artery disease status post coronary artery bypass grafting. 2. Respiratory insufficiency. 3. Persistent atrial fibrillation with controlled ventricular rate. 4. Respiratory insufficiency. 5. Chronic renal insufficiency. PLAN: We will continue him on his current medications including Lopressor 25 b.i.d., amiodarone 200 b.i.d., Eliquis 2.5 b.i.d., aspirin and Lipitor. MMODL / IJN: [id number] /
[2019-04-05 16:50] LABS: Glucose,Whole Blood 169 mg/dL (75-99)
[2019-04-05] MEDS: ACETAMINOPHEN TAB 500 MG TAB PO PRN (19:16)
[2019-04-05 20:40] LABS: Glucose,Whole Blood 137 mg/dL (75-99)
[2019-04-05] MEDS: SODIUM CHLORIDE 0.65% NASAL SPRAY 44 ML BTL NASAL PRN (20:44)
[2019-04-05] MEDS ORDERED: LOPERAMIDE 2 MG CAP PO STA (23:24)
[2019-04-06 02:07] LABS: Glucose,Whole Blood 119 mg/dL (75-99)
[2019-04-06] MEDS: INSULIN ASPART (NovoLOG) 100 UNIT/ML VIAL SQ SCH ×8 (02:13→20:44)
[2019-04-06 05:14] LABS: Anisocytosis Slight; HCT 23.2 % (39.0-53.0); HGB 7.5 gm/dL (13.0-17.5); Hypochromasia Slight; MCH 30.2 pg (25.0-35.0); MCHC 32.4 g/dL (31.0-37.0); MCV 93.1 fL (80.0-100.0); Mean Platelet Volume 6.4; Platelet Count 197 k/uL (150-450); Poikilocytosis Slight; RDW 16.1 % (11.5-15.5); WBC 12.7 k/uL (3.8-10.6)
[2019-04-06 05:22] LABS: Calcium 8.1 mg/dL (8.4-10.2); Potassium 3.7 mmol/L (3.5-5.1)
--- NOTE | 2019-04-06 06:27 | P.CONS ---
History of Present Illness - Chief Complaint Cardiac debility - History of Present Illness I had the opportunity to see patient for inpatient rehab consultation with regard to cardiac debility. He was admitted to [facility] March 26 with known cardiac disease history of CABG, stents and ICD for V. fib. On 04 02 underwent CABG. Seen in consultation by cardiology and Dr. Alvarado. Chest x-rays followed for airspace disease and effusions. PT reports minimal assistance for gait at the op to 60 feet, 400 feet total, without device, frequent [place] and loss of balance 2. OT reports maximal assistance for lower dressing and minimal assistance for toilet transfer. Maximal assistance to person for func tional mobility. Previous functional history as elicited from patient: 73-year-old right-handed white male who is lives in one form with . Both retired. They share the cooking, does the laundry patient independent with driving, standing shower and gait with standard cane or walker. Dr. Guevara is regular doctor. Review of Systems Review of systems: ENT: Denies sneezes or discharge. Eyes: Denies discharge or photophobia. Cardiac: Chest discomfort. Pulmonary: Mild shortness of breath. Gastrointestinal: Denies nausea, emesis, constipation, diarrhea. Genitourinary: Denies discharge or frequency. Musculoskeletal: Denies muscle or bone aches. Neurologic: Denies motor or sensory change. Endocrine: Denies shakes or sweats. Oncology: Denies cancers. Dermatologic: Denies rash, itching, pruritus. ALLERGY/immunology: Denies sneezes, rashes. Past Medical History Past Medical History: Atrial Fibrillation, Asthma, Coronary Artery Disease (CAD), Chest Pain / Angina, Heart Failure, COPD, Diabetes Mellitus, GERD/Reflux, Hyperlipidemia, Hypertension, Myocardial Infarction (NJ), Osteoarthritis (OA), Prostate Disorder, Pulmonary Embolus (PE), Renal Disease, Skin Disorder, Sleep Apnea/CPAP/BIPAP Additional Past Medical History / Comment(s): SUDDEN 2010-REVIVED AND DEFIBRILLATOR. GOUT. , PSORIASIS, MEDTRONIC AICD., STROKE BEHIND LT EYE. KIDNEY STONES. , STAGE 3 KIDNEY DISEASE., ANEMIA, BPH, NJ x 4 , "Blood clot outside of my heart", BELLS PALSY, NEUROPATHY, STATES UNSTEADY GAIT- USES CANE PRN., USES C-PAP MACHINE, PSORIATIC ARTHRITIS, STATES EPISODE OF A-FIB AFTER KNEE SURGERY., STATES HE DROPPED WRENCH ON FOOT -HAS RED SPOT AND SOME PAIN., HX V-TACH., SEE CARDIOLOGY H & P. Last Myocardial Infarction Date:: 12/2014 History of Any Multi-Drug Resistant Organisms: None Reported Past Surgical History: Adenoidectomy, AICD, Heart Catheterization, Heart Catheterization With Stent, Orthopedic Surgery, Tonsillectomy Additional Past Surgical History / Comment(s): BRIAN CARPAL TUNNEL, LT ROTATOR CUFF. 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 He denies any medical marijuana, marijuana, street drug or alcohol use. 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 He is a . Patient was at home with his . He uses a cane as needed. Past Drug Use History: None Reported - Past Family History Father Family Medical History: Coronary Artery Disease (CAD) Additional Family Medical History / Comment(s): TRIPLE BYPASS Mother Family Medical History: Cancer, Hypertension, Pulmonary Embolus Additional Family Medical History / Comment(s): ENDOMETRIAL CANCER Daughter(s) Family Medical History: Cancer, Pulmonary Embolus Medications and Allergies Home Medications Medication Instructions Recorded Confirmed Type Calcium Carbonate/Vitamin D3 1 tab PO BID 12/09/14 03/24/19 History [Calcium 600 + Vit D Tablet] Insulin Glargine,Hum.rec.anlog 56 unit SQ QAM 12/09/14 03/24/19 History [Lantus Solostar] Metoprolol Tartrate [Lopressor] 100 mg PO BID 12/09/14 03/24/19 History Omeprazole [PriLOSEC] 20 mg PO DAILY 12/09/14 03/24/19 History Furosemide [Lasix] 40 mg PO BID 02/06/16 03/24/19 History Isosorbide Mononitrate ER [Imdur] 30 mg PO BID 02/06/16 03/24/19 History Atorvastatin [Lipitor] 40 mg PO HS 03/14/17 03/24/19 History Hydrochlorothiazide 12.5 mg PO DAILY 03/14/17 03/24/19 History Insulin Aspart [NovoLOG Flexpen] 18 units SQ AC-TID 03/14/17 03/24/19 History Losartan [Cozaar] 50 mg PO DAILY 03/14/17 03/24/19 History Allopurinol [Zyloprim] 100 mg PO BID 03/20/19 03/24/19 History Apixaban [Eliquis] 2.5 mg PO BID 03/20/19 03/24/19 History Colchicine 0.6 mg PO DAILY 03/20/19 03/24/19 History Dulaglutide [Trulicity] 1.5 mg SQ WEEKLY 03/20/19 03/24/19 History Magnesium 400 mg PO DAILY 03/20/19 03/24/19 History Metoprolol Tartrate [Lopressor] 50 mg PO DAILY@1200 03/20/19 03/24/19 History Nitroglycerin Sl Tabs [Nitrostat] 0.4 mg SUBLINGUAL Q5M PRN 03/20/19 03/24/19 History Tamsulosin HCl [Flomax] 0.4 mg PO DAILY 03/20/19 03/24/19 History Turmeric Root Extract [Turmeric] 1,000 mg PO DAILY 03/20/19 03/24/19 History Allergies Allergy/AdvReac Type Severity Reaction Status Date / Time gabapentin AdvReac Unknown DREAMS, Verified 03/20/19 09:54 PERSONALITY CHANGES- ANGER Sulfa (Sulfonamide AdvReac Rapid Verified 03/20/19 09:53 Antibiotics) Heart Rate/Dyspnea Physical Exam Vitals: Vital Signs Temp Pulse Resp BP Pulse Ox 04/06/19 06:00 80 21 109/54 93 L 04/06/19 05:00 65 19 107/56 96 04/06/19 04:00 98.4 F 69 9 L 105/55 96 04/06/19 03:00 70 18 84/36 96 04/06/19 02:00 69 9 L 103/57 96 04/06/19 01:00 71 17 96/62 95 04/06/19 00:00 97.6 F 72 14 115/56 96 04/05/19 23:11 76 16 96 04/05/19 23:00 74 17 102/53 95 04/05/19 22:00 81 11 L 128/59 94 L 04/05/19 21:00 87 17 127/74 96 04/05/19 20:06 85 04/05/19 20:00 98.6 F 85 17 108/64 100 04/05/19 19:56 85 04/05/19 19:00 84 17 137/63 94 L 04/05/19 18:00 84 13 105/64 95 04/05/19 17:00 83 18 110/55 96 04/05/19 16:00 98.4 F 81 20 111/61 98 04/05/19 15:55 80 04/05/19 15:44 79 04/05/19 15:00 75 12 102/56 93 L 04/05/19 14:00 78 13 106/59 94 L 04/05/19 13:00 97.8 F 74 18 106/59 95 04/05/19 12:00 77 12 103/58 93 L 04/05/19 11:45 73 04/05/19 11:34 72 04/05/19 11:00 73 18 118/66 94 L 04/05/19 10:00 86 18 118/56 97 04/05/19 09:00 87 14 105/59 95 04/05/19 08:25 76 04/05/19 08:14 75 04/05/19 08:00 97.6 F 76 12 109/59 96 04/05/19 07:00 73 14 98/57 95 Intake and Output 04/05/19 04/05/19 04/06/19 14:59 22:59 06:59 Output Total 790 935 695 Balance -790 -935 -695 Output: Urine 790 935 695 Other: Voiding Method Indwelling Catheter Indwelling Catheter Indwelling Catheter # Voids 0 # Bowel Movements 1 2 1 Weight 110.7 kg Skin: Good color, texture, turgor. General: Obese build and comfortable appearance. Head: Normocephalic, atraumatic. Eyes: Symmetric. Pupils equal round. Ears: Symmetric. Hearing within normal limits. Mouth: Clear. Neck: Supple. Carotid without bruit. Cardiac: Regular rate and rhythm. Sternum clean and dressed. Wearing harness. Lungs: Clear anteriorly and posteriorly. Abdomen: Soft active nontender. Obese. Extremities: Normal tone. Neurological: Mental status: Alert, cooperative, pleasant. Cranial nerves: Symmetric facial tone and trapezius. Motor: Normal strength and isolation all 4 limbs. Sensation: Intact throughout. DTRs: Symmetric and equal throughout. Mobility: Requires assistance for transfer from bed to Elizabeth chair. Results CBC & Chem 7: 04/06/19 04:54 04/06/19 04:54 Labs: Abnormal Lab Results - Last 24 Hours (Table) 04/05/19 04/05/19 04/05/19 Range/Units 07:09 10:22 16:49 WBC (3.8-10.6) k/uL RBC (4.30-5.90) m/uL Hgb (13.0-17.5) gm/dL Hct (39.0-53.0) % RDW (11.5-15.5) % Sodium (137-145) mmol/L Carbon Dioxide (22-30) mmol/L BUN (9-20) mg/dL Creatinine (0.66-1.25) mg/dL POC Glucose (mg/dL) 100 H 110 H 169 H (75-99) mg/dL Calcium (8.4-10.2) mg/dL 04/05/19 04/06/19 04/06/19 Range/Units 20:38 02:06 04:54 WBC 12.7 H (3.8-10.6) k/uL RBC 2.50 L (4.30-5.90) m/uL Hgb 7.5 L (13.0-17.5) gm/dL Hct 23.2 L (39.0-53.0) % RDW 16.1 H (11.5-15.5) % Sodium (137-145) mmol/L Carbon Dioxide (22-30) mmol/L BUN (9-20) mg/dL Creatinine (0.66-1.25) mg/dL POC Glucose (mg/dL) 137 H 119 H (75-99) mg/dL Calcium (8.4-10.2) mg/dL 04/06/19 Range/Units 04:54 WBC (3.8-10.6) k/uL RBC (4.30-5.90) m/uL Hgb (13.0-17.5) gm/dL Hct (39.0-53.0) % RDW (11.5-15.5) % Sodium 133 L (137-145) mmol/L Carbon Dioxide 18 L (22-30) mmol/L BUN 93 H (9-20) mg/dL Creatinine 3.02 H (0.66-1.25) mg/dL POC Glucose (mg/dL) (75-99) mg/dL Calcium 8.1 L (8.4-10.2) mg/dL Microbiology - Last 24 Hours (Table) 04/04/19 10:42 Urine Culture - Final Urine,Catheterized Assessment and Plan (1) Unstable angina pectoris Current Visit: No Status: Acute Code(s): I20.0 - UNSTABLE ANGINA SNOMED Code(s): 4328609 Plan: Impression: 1. Cardiac debility with history of coronary disease, multiple procedures and unstable angina and [place]. 2. Status post CABG. 3. Obese. 4. Hypertension. 5. Asthma. 6. Sleep apnea. 7. Osteoarthritis. Constant plan: At this time PT and OT are ongoing. Safety concerns noted. Patient with endurance issues but generally is tolerating therapy. Have discussed possible inpatient rehab with patient. Note that he was in the middle of care by nurse and x-ray tech.
[2019-04-06 06:52] LABS: Glucose,Whole Blood 113 mg/dL (75-99)
[2019-04-06] MEDS: SODIUM CHLORIDE 0.65% NASAL SPRAY 44 ML BTL NASAL PRN ×2 (06:56→14:53)
[2019-04-06] MEDS ORDERED: POTASSIUM CHLORIDE ER 20 MEQ TAB.ER PO SCH (07:00)
[2019-04-06] MEDS: PANTOPRAZOLE 40 MG TABLET PO SCH (07:01)
[2019-04-06] MEDS: MIDODRINE 5 MG TAB PO SCH ×3 (07:01→17:27)
--- NOTE | 2019-04-06 07:04 | P.PN ---
Subjective Progress Note Date: 04/06/19 Principal diagnosis: Triple-vessel coronary artery disease. 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 POD #7 quintuple coronary artery bypass grafting using the left internal mammary artery to the left anterior descending coronary artery, left radial artery from the aorta to the first obtuse marginal coronary artery, reverse greater saphenous vein graft from the aorta to the diagonal coronary artery, reverse greater saphenous vein graft from the aorta to the posterior descending coronary artery, and reverse greater saphenous vein graft from aorta to the posterior lateral branch of the right coronary artery. Bilateral pulmonary vein isolation using the bipolar radiofrequency energy by Atricure, exclusion of the left atrial appendage using a 35 mm Atriclip, endoscopic left radial artery harvest, endoscopic harvesting of the left greater saphenous vein from the groin to above the ankle level and right greater saphenous vein from the groin to below the knee level, intraoperative graft flow measurements using the Medistim system, intraoperative transesophageal echocardiogram and epi-aortic scanning. Postoperative acute blood loss anemia, expected outcome due to hemodilution and cardiopulmonary bypass. Postoperative thrombocytopenia, expected outcome due to his preoperative thrombocytopenia and hemodilution. Postoperative controlled atrial fibrillation, expected due to his history of paroxysmal atrial fibrillation and known potential outcome from cardiac surgery Postoperative acute on chronic kidney disease, unexpected but potential outcome due to his baseline chronic kidney disease along with borderline hypotension The patient is currently laying in bed in the intensive care unit in no acute distress. States lower back pain which is better, denies chest pain, denies shortness of breath, complains of diarrhea, C. diff negative. Patient requires reminders to cough and deep breathe. Remains in controlled atrial fibrillation, currently on oral amiodarone and Lopressor as well as Eliquis. No other new concerns. Objective - Vital Signs Vital signs: Vital Signs Temp 98.4 F 04/06/19 04:00 Pulse 80 04/06/19 06:00 Resp 21 04/06/19 06:00 BP 109/54 04/06/19 06:00 Pulse Ox 93 L 04/06/19 06:00 Intake & Output 04/05/19 04/05/19 04/06/19 06:59 18:59 06:59 Output Total 535 1160 1260 Balance -535 -1160 -1260 Weight 114.2 kg 110.7 kg Output: Urine 535 1160 1260 Other: Voiding Method Indwelling Catheter Indwelling Catheter Indwelling Catheter # Voids 0 # Bowel Movements 2 1 1 ABP, PAP, CO, CI - Last Documented Arterial Blood Pressure 116/50 Pulmonary Artery Pressure 28/11 Cardiac Output 7.4 Cardiac Index 3.4 - Constitutional General appearance: Present: cooperative, no acute distress, obese - Respiratory Details: Lungs sounds diminished bilaterally. Respirations even, nonlabored. Currently on room air with oxygen saturation 93%. Able to achieve 1000 mL on his incentive spirometry. Strong cough. - Cardiovascular Details: S1, S2 present. Irregular rate and rhythm, controlled atrial fibrillation on telemetry. Sternum stable. Palpable peripheral pulses bilaterally. Trace generalized edema present. No calf pain or tenderness noted. Heart hugger in place with patient intermittently demonstrating appropriate use with much encouragement, antiembolism stockings, SCDs present. - Gastrointestinal Gastrointestinal Comment(s): Abdomen soft, nontender, nondistended, obese. Active bowel sounds present 4 quadrants. Tolerating minimal diet. Positive multiple loose bowel movements. - Genitourinary Genitourinary Comment(s): Uribe present draining concentrated yellow urine. Output 50-125 mL/h overnight, with excellent diuresis after IV Lasix. - Integumentary Integumentary Comment(s): Skin is warm and dry with evidence of good perfusion. Anterior chest incision well approximated. Left radial artery harvest site well approximated, patient able to move all fingers, fish cake maker appropriately, denies numbness or tingling. Bilateral lower extremity EVH sites well approximated. - Neurologic Neurologic: Present: CNII-XII intact - Musculoskeletal Musculoskeletal: Present: gait normal, generalized weakness, strength equal bilaterally - Psychiatric Psychiatric: Present: A&O x's 3, appropriate affect, intact judgment & insight - Allied health notes Allied health notes reviewed: nursing - Labs CBC & Chem 7: 04/06/19 04:54 04/06/19 04:54 Labs: Abnormal Lab Results - Last 24 Hours (Table) 04/05/19 04/05/19 04/05/19 Range/Units 07:09 10:22 16:49 WBC (3.8-10.6) k/uL RBC (4.30-5.90) m/uL Hgb (13.0-17.5) gm/dL Hct (39.0-53.0) % RDW (11.5-15.5) % Sodium (137-145) mmol/L Carbon Dioxide (22-30) mmol/L BUN (9-20) mg/dL Creatinine (0.66-1.25) mg/dL POC Glucose (mg/dL) 100 H 110 H 169 H (75-99) mg/dL Calcium (8.4-10.2) mg/dL 04/05/19 04/06/19 04/06/19 Range/Units 20:38 02:06 04:54 WBC 12.7 H (3.8-10.6) k/uL RBC 2.50 L (4.30-5.90) m/uL Hgb 7.5 L (13.0-17.5) gm/dL Hct 23.2 L (39.0-53.0) % RDW 16.1 H (11.5-15.5) % Sodium (137-145) mmol/L Carbon Dioxide (22-30) mmol/L BUN (9-20) mg/dL Creatinine (0.66-1.25) mg/dL POC Glucose (mg/dL) 137 H 119 H (75-99) mg/dL Calcium (8.4-10.2) mg/dL 04/06/19 04/06/19 Range/Units 04:54 06:50 WBC (3.8-10.6) k/uL RBC (4.30-5.90) m/uL Hgb (13.0-17.5) gm/dL Hct (39.0-53.0) % RDW (11.5-15.5) % Sodium 133 L (137-145) mmol/L Carbon Dioxide 18 L (22-30) mmol/L BUN 93 H (9-20) mg/dL Creatinine 3.02 H (0.66-1.25) mg/dL POC Glucose (mg/dL) 113 H (75-99) mg/dL Calcium 8.1 L (8.4-10.2) mg/dL Microbiology - Last 24 Hours (Table) 04/04/19 10:42 Urine Culture - Final Urine,Catheterized - Imaging and Cardiology Chest x-ray: image reviewed Assessment and Plan Assessment: 1. Triple-vessel coronary artery disease, status post 5 vessel CABG 2. History of coronary artery disease and myocardial infarction with multiple stents to the RCA and LAD 3. V. fib arrest after stenting in 2010 with placement of Medtronic ICD 4. Mild to moderate left ventricular dysfunction 5. Hypertension 6. Hyperlipidemia 7. Type 2 diabetes mellitus with hemoglobin A1c 7.3% 8. Chronic kidney disease stage III 9. Persistent atrial fibrillation on chronic Eliquis for anticoagulation, status post bilateral pulmonary vein isolation and left atrial appendage ligation 10. Mild COPD with preoperative FEV1 63% of predicted 11. SUSAN with home CPAP use 12. Obesity 13. Family history of heart disease 14. Postoperative acute blood loss anemia, status post transfusion 15. Postoperative thrombocytopenia 16. Postoperative controlled atrial fibrillation 17. Postoperative acute on chronic kidney disease Plan: 1. Continue low-dose aspirin, statin, and beta cely. Will increase his beta cely as tolerated. 2. Continue amiodarone for atrial fibrillation prophylaxis. Continue Eliquis 3. Encourage incentive spirometry is 10 times every hour while awake. 4. Bronchodilators per pulmonology management. 5. Increase activity as tolerated, PT/OT/cardiac rehab following. 6. Continue lasix 60 mg IVP BID with Zaroxolyn daily. Continue Midodrine 5 mg TID 7. Keep Uribe for another 24 hours for strict accurate intake and output. Continue Flomax 0.4 milligrams daily. 8. GI/DVT prophylaxis 9. Insulin management per primary care service. 10. Pain control with current medication regimen. Avoid Toradol due to his history of chronic kidney disease. 11. Avoid nephrotoxic agents 12. Continue to monitor daily labs and chest x-rays. Electrolyte replacement per protocol. No further transfusion. 13. Patient given dose of Imodium per primary care service, may need further doses if diarrhea continues. C. diff negative. 14. Discharge planning in progress. Patient will need rehab at discharge, Dr. Haji's consultation appreciated. 15. More recommendations to follow based on patient's clinical course. Time with Patient: Greater than 30
--- NOTE | 2019-04-06 07:17 | XR ---
EXAMINATION TYPE: XR chest 1V portable DATE OF EXAM: 04/06/2019 COMPARISON: 04/05/2019 HISTORY: Status post cardiac surgery. TECHNIQUE: Single frontal view of the chest is obtained. FINDINGS: Trace right and small left pleural effusions remain. Post CABG changes the chest and cardi omegaly with single lead left-sided cardiac defibrillator. No sizable pneumothorax. Mild pulmonary va scular congestion slightly improved from the prior. Similar bibasilar airspace disease. IMPRESSION: Mild improved pulmonary vascular congestion with stable small left pleural effusion, tra ce right pleural effusion and bibasilar airspace disease.
--- NOTE | 2019-04-06 07:30 | P.PN ---
Subjective Progress Note Date: 04/06/19 Principal diagnosis: Severe CAD and status post CABG This is a pleasant 73-year-old gentleman who sees Dr. SANAM Hinds in the office on regular basis with a past medical history significant for diabetes, hypertension, dyslipidemia, long-standing persistent atrial fibrillation on oral anticoagulation, as well as chronic kidney disease, underwent elective coronary artery bypass grafting, week ago. The recovery was slow mainly because of renal failure. On follow-up with him today, he states that he is feeling overall weak and having pain in the hip because of laying flat in bed. No indication of chest pain or chest discomfort. The chest x-ray was reviewed. The blood work was reviewed. The creatinine has been trending down. The creatinine yesterday was up because he was hypotensive and since the Norvasc was stopped her blood pressure has improved and the creatinine has improved as well. She continues to be on aspirin as well as oral anticoagulation with Eliquis. He is also on metoprolol. Objective - Vital Signs Vital signs: Vital Signs Temp 98.4 F 04/06/19 04:00 Pulse 76 04/06/19 07:00 Resp 17 04/06/19 07:00 BP 106/56 04/06/19 07:00 Pulse Ox 94 L 04/06/19 07:00 Intake & Output 04/05/19 04/06/19 04/06/19 18:59 06:59 18:59 Intake Total 400 Output Total 1160 1260 200 Balance -1160 -1260 200 Weight 110.7 kg Intake: Oral 400 Output: Urine 1160 1260 200 Other: Voiding Method Indwelling Catheter Indwelling Catheter # Voids 0 # Bowel Movements 1 1 ABP, PAP, CO, CI - Last Documented Arterial Blood Pressure 116/50 Pulmonary Artery Pressure 23/04 Cardiac Output 7.4 Cardiac Index 3.4 - Constitutional General appearance: Present: no acute distress - Respiratory Respiratory: bilateral: diminished - Cardiovascular Rhythm: irregularly irregular Heart sounds: normal: S1, S2 Abnormal Heart Sounds: Present: systolic murmur - Labs CBC & Chem 7: 04/06/19 04:54 04/06/19 04:54 Labs: Abnormal Lab Results - Last 24 Hours (Table) 04/05/19 04/05/19 04/05/19 Range/Units 10:22 16:49 20:38 WBC (3.8-10.6) k/uL RBC (4.30-5.90) m/uL Hgb (13.0-17.5) gm/dL Hct (39.0-53.0) % RDW (11.5-15.5) % Sodium (137-145) mmol/L Carbon Dioxide (22-30) mmol/L BUN (9-20) mg/dL Creatinine (0.66-1.25) mg/dL POC Glucose (mg/dL) 110 H 169 H 137 H (75-99) mg/dL Calcium (8.4-10.2) mg/dL 04/06/19 04/06/19 04/06/19 Range/Units 02:06 04:54 04:54 WBC 12.7 H (3.8-10.6) k/uL RBC 2.50 L (4.30-5.90) m/uL Hgb 7.5 L (13.0-17.5) gm/dL Hct 23.2 L (39.0-53.0) % RDW 16.1 H (11.5-15.5) % Sodium 133 L (137-145) mmol/L Carbon Dioxide 18 L (22-30) mmol/L BUN 93 H (9-20) mg/dL Creatinine 3.02 H (0.66-1.25) mg/dL POC Glucose (mg/dL) 119 H (75-99) mg/dL Calcium 8.1 L (8.4-10.2) mg/dL 04/06/19 Range/Units 06:50 WBC (3.8-10.6) k/uL RBC (4.30-5.90) m/uL Hgb (13.0-17.5) gm/dL Hct (39.0-53.0) % RDW (11.5-15.5) % Sodium (137-145) mmol/L Carbon Dioxide (22-30) mmol/L BUN (9-20) mg/dL Creatinine (0.66-1.25) mg/dL POC Glucose (mg/dL) 113 H (75-99) mg/dL Calcium (8.4-10.2) mg/dL Microbiology - Last 24 Hours (Table) 04/04/19 10:42 Urine Culture - Final Urine,Catheterized Assessment and Plan Assessment: Assessment #1 severe CAD and status post CABG #2 acute on chronic renal failure #3 long-standing persistent atrial fibrillation #4 hypotension which has resolved #5 multiple comorbid conditions Plan #1 continue the current medical regimen #2 follow-up with the patient #3 continue monitor the blood work including BUN and creatinine
[2019-04-06] MEDS: INSULIN DETEMIR (LEVEMIR) 100 UNIT/ML SYR SQ SCH (07:59)
[2019-04-06] MEDS: ATORVASTATIN 40 MG TAB PO SCH (08:09)
[2019-04-06] MEDS: ALLOPURINOL 100 MG TAB PO SCH ×2 (08:10→20:49)
[2019-04-06] MEDS: AMIODARONE 200 MG TAB PO SCH ×2 (08:10→20:49)
[2019-04-06] MEDS: ASPIRIN 81 MG PO SCH (08:10)
[2019-04-06] MEDS: APIXABAN 2.5 MG TABLET PO SCH ×2 (08:10→20:49)
[2019-04-06] MEDS: COLCHICINE 0.6 MG EACH PO SCH (08:11)
[2019-04-06] MEDS: METOLAZONE 5 MG TAB PO SCH (08:11)
[2019-04-06] MEDS: TAMSULOSIN 0.4 MG CAP.ER.24H PO SCH (08:12)
[2019-04-06] MEDS: METOPROLOL TARTRATE 25 MG TAB PO SCH ×2 (08:15→20:49)
[2019-04-06] MEDS: NYSTATIN 100,000 UNIT/ML SUSP 500,000 UNIT/5 ML CUP PO SCH ×4 (08:16→20:49)
[2019-04-06] MEDS: FUROSEMIDE 10 MG/ML 10 ML VIAL IV SCH ×2 (08:44→20:49)
[2019-04-06] MEDS: IPRATROPIUM-ALBUTEROL 3 ML NEB INHALATION SCH ×4 (08:53→20:28)
[2019-04-06] MEDS: LIDOCAINE 5% PATCH TOPICAL SCH (10:04)
[2019-04-06 12:14] LABS: Glucose,Whole Blood 156 mg/dL (75-99)
--- NOTE | 2019-04-06 12:23 | P.PN ---
Subjective Progress Note Date: 04/06/19 This is a 73-year-old male patient of Dr. Guevara with past medical history for coronary artery disease, paroxysmal atrial fibrillation on eliquis, diabetes mellitus type II insulin requiring with diabetic neuropathy, chronic kidney disease, kidney stones, COPD, obstructive sleep apnea with CPAP, hyperlipidemia, hypertension, and rheumatoid arthritis and cirrhotic arthritis, gout, benign prostatic hypertrophy. His primary care physician is Dr. Guevara he follows with Dr. 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 He had a heart catheterization done in 2005 that showed moderate disease involving the LAD and diagonal was mild involvement patient had some irregular lesion of the circumflex. He was seen at [facility] for chest pain and non-ST elevated IN 2010. At that time, his heart catheterization revealed an acutely occluded right coronary artery, significant disease in the moderate size third obtuse marginal branch with moderate disease in the LAD and left circumflex. Ejection fraction was 3540 percent. He underwent successful stenting of the distal RCA. Later in his room, patient developed ventricular fibrillation and was quickly resuscitated and underwent heart catheterization and underwent angioplasty and stenting of the PLV branch of the right coronary artery. On 09/14/2010, patient underwent a single chamber cardioverter defibrillator implantation. His echoca rdiogram revealed mild pulmonary hypertension, ejection fraction 40% at that time. In 2014 he underwent heart catheterization finding 45% proximal right coronary artery stenosis and significant mid LAD lesion which underwent PTCA and stenting of the mid LAD. Patient's also gives history of a septic knee joint needing washout which was done at [facility] at that time patient developed atrial fibrillation in the postop period. He also had a run of V. tach for which his AICD fired. Ever since that episode of sepsis, patient has had chronic kidney disease. Regarding his diabetes, he follows with Dr. Yoanna Mccormick. He is currently on Trulicity 1.5mg weekly, Lantus 56 units in the morning and recently changed to 18 units of NovoLog with meals. His last hemoglobin A1c was 7.4 in December at the [place] [facility]. Regarding rheumatoid arthritis and psoriatic arthritis, patient follows with Dr. Shelton. In the past he has been on methotrexate, Enbrel and Humira. He was recently on Ilaris but this was stopped when he started having cardiac problems as there is concern for arrhythmia. He contacted his enterprise resource analyst and she had recommended stopping it. The patient have follow-up in the cardiology office in December of this year and underwent a Lexiscan stress test that did not demonstrate any ischemia. Over the past 3-4 weeks she has had intermittent substernal chest pain with radiation to his arms. He was recommended for heart catheterization which was completed yesterday that found proximal LAD stenosis 60%, mid LAD stenosis 30%, circumflex stenosis 90% and RCA stenosis 60. Cardiothoracic surgery was consulted for recommendations regarding CABG versus stenting. Carotid ultrasound revealed mild plaque bilateral bifurcations but no significant stenosis. Chest x-ray reveals no acute cardiopulmonary process. Underlying COPD. patient has been evaluated by cardiothoracic surgery. Plan for tomorrow is a repeat heart catheterization to further evaluate LAD. 03/26: Patient underwent heart catheterization today with Dr. SANAM Hinds finding significant lesion in the proximal LAD and area of 2.6 mm2 also within the left main and heavy circumferential desiccation lesion in the area of 3.2 mm2. Both were deemed significant and requires bypass surgery. The patient is seen today while in the recovery area. He denies having any chest pain or shortness of breath at this time. Blood sugars will need to be well-controlled and we will make arrangements for Levemir to be 30 units in the morning and 40 at bedtime. 03/27: The patient complains of nasal congestion since he had his procedure yesterday. We will add Flonase. Regarding blood sugars nighttime blood sugar remains quite elevated and we will make additional changes to his insulins by adding NovoLog scheduled 3 units with each meal and increase nighttime Levemir to 45 units. He is scheduled for open heart on Saturday. 03/28: Patient is resting comfortably in bed without any acute distress. Patient has no complaints at this time. Patient did not receive his Levemir last night due to his blood sugar being 112. Patient's blood sugar was elevated in 150s this morning due to missing the dose of Levemir. Patient is scheduled for open heart surgery on Saturday. 03/29: Patient is sitting up in bed with at the bedside. Patient is in no acute distress. Patient has no complaints or concerns at this time. He slept well last night. Patient was given his Levemir last night his blood sugar this morning was 120. Patient is waiting to have open heart surgery on Saturday. Questions were answered. 03/30: Patient will be going for open heart surgery today we will be back in ICU on the respirator and insulin drip. 03/31: Patient is off mechanical ventilation sitting in his chair less pain and discomfort still have chest tube complaining of mild chest pain from his surgery but no other major complaint. 04/01: Patient is doing much better most of his tube out's 1 getting catheter was removed, blood sugar is much better pulse rate is running in the 60s and 70s, patient is hemodynamically stable no transfusion done last 24 hours. 04/02: Blood sugars are stable but he is still on insulin drip which we will transition to Levemir 40 units this morning, discontinue the insulin drip, start NovoLog 10 units with meals along with scale every 4 hours. Patient is complaining of back pain and neck pain. He has been tried on Lidoderm cream without improvement and now lidocaine patch. We will add in baclofen as needed. All chest tubes and Cordis out today. Uribe catheter remained for retention and patient has been started back on Flomax. Consultation In place for Dr. Haji. Patient encouraged to increase ambulation. 04/03: Patient remains in the intensive care unit. monitoring analyst is A. fib with controlled rate. Repeat echocardiogram has been ordered by cardiology. Back and neck pain appeared to be improved from yesterday. He has had marginal urine output and has received fluid boluses. Due to hypotension, midodrine added, Norvasc discontinued. IV Lasix 60 mg 1 dose was ordered for today. Uribe remains in place and patient continued on Flomax. Consult was added for nephrology regarding acute kidney injury. Repeat blood work today reveals white count of 15.9, hemoglobin 8.4, platelet count 127. BUN 68 and creatinine 3.15. Blood sugars are running between 178 and 211. We are increasing Levemir to 65 units which will start tomorrow and increasing NovoLog with meals to 22 units 3 times daily. Patient is continued on NovoLog scale. Dr. Haji consult is esha yang as he is not available. 04/04: Patient remains in intensive care unit, his sitting in the chair he appears a bit weaker today his hemoglobin is is down to 7.6, he had an episode of low sugar is not eating much adjusted his insulin regimen to Levemir 45 units in the morning as well as decreasing his Humalog to 12 units plus scale with meals. Patient continues to be somewhat short of breath, he continues to have shallow breathing, he is using incentive spirometer on and off, he is generally weak he will require subacute rehabilitation versus inpatient rehabilitation. 04/05: Patient is sitting up in a chair his feeling fatigued today he is having more diarrhea, we will check his stool for C. diff, he has episode of hyperglycemia yesterday subsequently we'll decrease his Levemir to 34 units in the morning along with 50% of his Humalog if his not eating greater than 50% of his meal and to hold if is less than 100, patient suffered from Odynophagia and he does have significant thrush we will start him on nystatin swish and swallow 5 mL before each meal and at bedtime, this was discussed with the nursing staff at the bedside. 04/06: C. difficile toxin came back negative. He received 1 dose of Imodium yesterday. Repeat lab work this morning reveals WBC 12.7, hemoglobin 7.5 plat elet count 197. Sodium 133, potassium 3.7, chloride 101, CO2 18, BUN 93 and creatinine 3.02. Blood sugars running between 97 and 137 following adjustments to insulins. Patient has been afebrile, heart rate 75, blood pressure 121/56, pulse ox 97%. monitoring analyst atrial fibrillation with atrial flutter. He is currently on amiodarone oral, Lopressor and eliquis. Patient is reaching 750 ml on incentive spirometry. He is eating an approximate 75% of most of his meals. Yesterday, patient was started on Lasix 60 mg IV every 12 hours and Zaroxolyn 5 mg daily. Weight is down 3-1/2 kg from yesterday. Uribe catheter is in place for retention. He has been seen by Dr. Haji and appears to be a good candidate for inpatient rehab. Repeat chest x-ray reveals mild improved pulmonary vascular congestion with stable small left pleural effusion, trace right pleural effusion and bibasilar airspace disease. Patient states that he did not sleep well last night. He is also complaining of lower abdominal pain and states he did not pass any gas this morning. Uribe cath remains in place. Review of systems: CONSTITUTIONAL: Overweight no acute respiratory distress, appears fatigued EYES: No icterus sclerae, no conjunctivitis. EARS, NOSE, MOUTH, THROAT, and FACE: No blurred vision, no sore throat. RESPIRATORY: Mild shortness of breath no cough wheezes. CARDIOVASCULAR: Positive chest pain and angina with mild shortness of breath positive PND and orthopnea. GASTROINTESTINAL: Reports Abd pain, Nausea or vomiting, positive for Diarrhea or constipation, No GI Bleed, no distention or masses. GENITOURINARY: Negative for Hematuria or UTI, no kidney stones. Reports retention INTEGUMENT/BREAST: Negative for any muscular injury with mild osteoarthritis.. HEMATOLOGIC/LYMPHATIC: Negative for bleed or purpura. MUSCULOSKELTAL: Multiple muscle and tendon involvement generalized arthralgia and myalgia. Reports neck pain. Reports lumbar back pain NEURLOGICAL: No LOC, Sz or syncope, blurred vision dizziness or abnormality. BEHAVIORAL/PSYCH: Negative. ENDOCRINE: Negative. Objective - Vital Signs Vital signs: Vital Signs Temp 97.5 F L 04/06/19 08:00 Pulse 75 04/06/19 08:00 Resp 19 04/06/19 08:00 BP 121/56 04/06/19 08:00 Pulse Ox 95 04/06/19 08:00 Intake & Output 04/05/19 04/06/19 04/06/19 18:59 06:59 18:59 Intake Total 400 Output Total 1160 1260 280 Balance -1160 -1260 120 Weight 110.7 kg Intake: Oral 400 Output: Urine 1160 1260 280 Other: Voiding Method Indwelling Catheter Indwelling Catheter # Voids 0 # Bowel Movements 1 1 ABP, PAP, CO, CI - Last Documented Arterial Blood Pressure 116/50 Pulmonary Artery Pressure 28/11 Cardiac Output 7.4 Cardiac Index 3.4 - Exam General Appearance: Alert, cooperative, no distress, appears stated age. Patient is sitting up in a recliner. Neck HEENT: Supple, no lymphadenopathy, no thyroid enlargement, no carotid bruits. Lungs: Decrease breath some bilateral. Chest Wall: Incision from his surgery with dressing in place Heart: Irregular rate and rhythm, S1, S2 normal, no murmur, rub or gallop. Back: Symmetric, no curvature, ROM normal, no CVA tenderness. Abdomen: Soft, non-tender, bowel sounds active all four quadrants, no masses, no organomegaly. Uribe catheter draining clear harvinder urine Extremities: Trace edema all multiple joint involvement with RA.. Pulses: 2+ and symmetric. Skin: Skin color, texture, tugor normal, no rashes or lesions. Neurologic: Alert oriented x3 cranial nerves II through XII intact, no motor deficit, no abnormal balance or gait. Generalized weakness noted - Labs CBC & Chem 7: 04/06/19 04:54 04/06/19 04:54 Labs: Abnormal Lab Results - Last 24 Hours (Table) 04/05/19 04/05/19 04/05/19 Range/Units 10:22 16:49 20:38 WBC (3.8-10.6) k/uL RBC (4.30-5.90) m/uL Hgb (13.0-17.5) gm/dL Hct (39.0-53.0) % RDW (11.5-15.5) % Sodium (137-145) mmol/L Carbon Dioxide (22-30) mmol/L BUN (9-20) mg/dL Creatinine (0.66-1.25) mg/dL POC Glucose (mg/dL) 110 H 169 H 137 H (75-99) mg/dL Calcium (8.4-10.2) mg/dL 04/06/19 04/06/19 04/06/19 Range/Units 02:06 04:54 04:54 WBC 12.7 H (3.8-10.6) k/uL RBC 2.50 L (4.30-5.90) m/uL Hgb 7.5 L (13.0-17.5) gm/dL Hct 23.2 L (39.0-53.0) % RDW 16.1 H (11.5-15.5) % Sodium 133 L (137-145) mmol/L Carbon Dioxide 18 L (22-30) mmol/L BUN 93 H (9-20) mg/dL Creatinine 3.02 H (0.66-1.25) mg/dL POC Glucose (mg/dL) 119 H (75-99) mg/dL Calcium 8.1 L (8.4-10.2) mg/dL 04/06/19 Range/Units 06:50 WBC (3.8-10.6) k/uL RBC (4.30-5.90) m/uL Hgb (13.0-17.5) gm/dL Hct (39.0-53.0) % RDW (11.5-15.5) % Sodium (137-145) mmol/L Carbon Dioxide (22-30) mmol/L BUN (9-20) mg/dL Creatinine (0.66-1.25) mg/dL POC Glucose (mg/dL) 113 H (75-99) mg/dL Calcium (8.4-10.2) mg/dL Microbiology - Last 24 Hours (Table) 04/04/19 10:42 Urine Culture - Final Urine,Catheterized Assessment and Plan Plan: 1. Triple-vessel coronary artery disease: Post 5 vessel bypass surgery continue aggressive pulmonary toileting. 2. History of non-ST elevated myocardial infarction, coronary artery disease and multiple stents. Just had 5 vessel bypass surgery and doing well in his recovery so far 3. Diabetes mellitus type 2 with end organ damage. Continue Levemir to 34 units units in the morning, increase NovoLog scheduled 12 units with meals and continue NovoLog scale, also hold Humalog for BGM was in 100. 4. Chronic atrial fibrillation. Continue oral amiodarone, Lopressor and eliquis. 5. Hypertension. Continue Lopressor 6. Hyperlipidemia. Continue atorvastatin 40 mg daily 7. Chronic kidney disease. Monitor renal function and avoid nephrotoxic agents. 8. Obstructive sleep apnea with home CPAP. 9. Diarrhea. Clostridium difficile negative. 10. History of ventricular tachycardia and cardiomyopathy status post AICD, stable 11. Gastroesophageal reflux disease. Continue Protonix 12. Acute kidney injury with chronic kidney disease stage 3. Avoid nephrotoxic agents. Nephrology consult. 13. Benign prostatic hypertrophy. Continue Flomax. 14. Thrush. Start the patient on nystatin swish and swallow 5 mL before each meal and at bedtime. 15. Medical debility. Physical therapy evaluation likely will require subacute rehabilitation or inpatient rehab. Discharge plan: Most likely inpatient rehab at [facility] Impression and plan of care have been directed as dictated by the signing physician. Leigh Bailey nurse practitioner acting as scribe for signing physician.
--- NOTE | 2019-04-06 13:04 | P.PN ---
Subjective Progress Note Date: 04/06/19 Principal diagnosis: Status post CABG, postoperative day #7 On today's evaluation of 04/05/2019, seeing this patient for a follow-up. He is awake and alert on room air oxygen. His chest x-ray showing atelectatic changes especially left lung base. He still has edema in lower extremities bilaterally. He was given a dose of Zaroxolyn and he is also on IV Lasix a 60 mg every 12 hours. The patient has a creatinine of 3.17 which is essentially stable compared to yesterday. The white cell count is at 7.5. He is using incentive spirometer and achieving approximately a liter. He is not having any chest pain. He is in atrial fibrillation for now. His medications include amiodarone 200 mg by mouth twice a day, metoprolol 25 mg by mouth twice a day, aspirin,Eliquis 2.5 mg twice a day and Midrin was also added regarding his lower blood pressure. Insulin is at 34 units subcu along with 12 units with meals and the scale. His sternum stable clean and intact. No other significant events over the past 24 hours. On 04/06/2019, patient remains in the ICU, complaining of generalized aches and pains, sore throat, sore legs, sore buttock, and feels generally weak. Patient is being evaluated by physical therapy, and he is being considered for possible referral to rehab at [facility]. Chest x-ray continues to show mild interstitial edema. Patient is receiving diuretics by thoracic surgery. All labs were reviewed today, BUN is 93 creatinine is 3.02 hemoglobin is 7.5. Objective - Vital Signs Vital signs: Vital Signs Temp 97.5 F L 04/06/19 08:00 Pulse 74 04/06/19 11:00 Resp 14 04/06/19 11:00 BP 108/63 04/06/19 11:00 Pulse Ox 95 04/06/19 11:00 Intake & Output 04/05/19 04/06/19 04/06/19 18:59 06:59 18:59 Intake Total 400 Output Total 1160 1260 1040 Balance -1160 -1260 -640 Weight 110.7 kg Intake: Oral 400 Output: Urine 1160 1260 1040 Other: Voiding Method Indwelling Catheter Indwelling Catheter # Voids 0 # Bowel Movements 1 1 ABP, PAP, CO, CI - Last Documented Arterial Blood Pressure 116/50 Pulmonary Artery Pressure 28/11 Cardiac Output 7.4 Cardiac Index 3.4 - Exam Physical exam revealed a 73-year-old white male in no distress. On room air. Neck HEENT: No neck masses no JVD, throat is clear. Lungs: Minimal fine crackles at the bases no rhonchi no wheezes. Chest Wall symmetrical chest expansion. No chest wall tenderness. Incision is clean. Heart: Irregular irregular rhythm, no S3 gallop. Abdomen: Obese, soft, nontender, no rebound no guarding. Extremities: No clubbing or cyanosis, trace of edema noted bilaterally. Pulses: Good pulses bilaterally 2+. Skin: Normal skin turgor, no rashes.. Neurologic: Alert and oriented 3, no gross focal neurologic deficit. Psychiatric: Normal mood affect and normal mental status examination. - Labs CBC & Chem 7: 04/06/19 04:54 04/06/19 04:54 Labs: Abnormal Lab Results - Last 24 Hours (Table) 04/05/19 04/05/19 04/06/19 Range/Units 16:49 20:38 02:06 WBC (3.8-10.6) k/uL RBC (4.30-5.90) m/uL Hgb (13.0-17.5) gm/dL Hct (39.0-53.0) % RDW (11.5-15.5) % Sodium (137-145) mmol/L Carbon Dioxide (22-30) mmol/L BUN (9-20) mg/dL Creatinine (0.66-1.25) mg/dL POC Glucose (mg/dL) 169 H 137 H 119 H (75-99) mg/dL Calcium (8.4-10.2) mg/dL 04/06/19 04/06/19 04/06/19 Range/Units 04:54 04:54 06:50 WBC 12.7 H (3.8-10.6) k/uL RBC 2.50 L (4.30-5.90) m/uL Hgb 7.5 L (13.0-17.5) gm/dL Hct 23.2 L (39.0-53.0) % RDW 16.1 H (11.5-15.5) % Sodium 133 L (137-145) mmol/L Carbon Dioxide 18 L (22-30) mmol/L BUN 93 H (9-20) mg/dL Creatinine 3.02 H (0.66-1.25) mg/dL POC Glucose (mg/dL) 113 H (75-99) mg/dL Calcium 8.1 L (8.4-10.2) mg/dL 04/06/19 Range/Units 12:03 WBC (3.8-10.6) k/uL RBC (4.30-5.90) m/uL Hgb (13.0-17.5) gm/dL Hct (39.0-53.0) % RDW (11.5-15.5) % Sodium (137-145) mmol/L Carbon Dioxide (22-30) mmol/L BUN (9-20) mg/dL Creatinine (0.66-1.25) mg/dL POC Glucose (mg/dL) 156 H (75-99) mg/dL Calcium (8.4-10.2) mg/dL Microbiology - Last 24 Hours (Table) 04/04/19 10:42 Urine Culture - Final Urine,Catheterized Assessment and Plan Assessment: Impression: 1 status post CABG for triple vessel coronary artery disease, postoperative day #7 2 history of non-ST elevation myocardial infarction 3 chronic atrial fibrillation 4 hypertension 5 type 2 diabetes 6 obstructive sleep apnea syndrome on home CPAP 7 chronic kidney disease 8 history of ventricular tachycardia and cardiomyopathy previous AICD placement. 9 medical debility. Recommendation: Continue present supportive care measures, patient is being considered for inpatient rehab. We'll continue to follow, continue incentive spirometry, continue ambulation, Continue low-dose aspirin, statins and beta blockers Encourage incentive spirometry Continue bronchodilators Increase activity as tolerated Continue Lasix and Zaroxolyn Continue GI and DVT prophylaxis Continue pain control management Continue to avoid nephrotoxic agents Continue to monitor daily x-rays of the chest and daily labs Discharge planning is in progress. Time with Patient: Less than 30
[2019-04-06] MEDS ORDERED: POTASSIUM CHLORIDE ER 20 MEQ TAB.ER PO STA (14:02)
[2019-04-06 16:51] LABS: Glucose,Whole Blood 112 mg/dL (75-99)
[2019-04-06] MEDS: ACETAMINOPHEN TAB 500 MG TAB PO PRN (18:24)
[2019-04-06 20:40] LABS: Glucose,Whole Blood 107 mg/dL (75-99)
[2019-04-07] MEDS: BENZOCAINE/MENTHOL LOZENG 1 EACH LOZENGE MUCOUS MEM PRN (01:06)
[2019-04-07 02:00] LABS: Glucose,Whole Blood 88 mg/dL (75-99)
[2019-04-07 04:49] LABS: Anisocytosis Slight; HCT 22.6 % (39.0-53.0); HGB 7.5 gm/dL (13.0-17.5); Hypochromasia Slight; MCH 29.6 pg (25.0-35.0); MCHC 33.2 g/dL (31.0-37.0); MCV 89.4 fL (80.0-100.0); Mean Platelet Volume 6.1; Platelet Count 218 k/uL (150-450); Poikilocytosis Slight; RBC 2.53 m/uL (4.30-5.90); RDW 16.2 % (11.5-15.5); WBC 16.5 k/uL (3.8-10.6)
[2019-04-07 04:58] LABS: Ionized Calcium 4.2 mg/dL (4.5-5.3)
[2019-04-07 05:12] LABS: Calcium 8.7 mg/dL (8.4-10.2); Magnesium 2.5 mg/dL (1.6-2.3); Potassium 3.9 mmol/L (3.5-5.1)
[2019-04-07] MEDS: INSULIN ASPART (NovoLOG) 100 UNIT/ML VIAL SQ SCH ×8 (06:05→23:50)
[2019-04-07 06:37] LABS: Glucose,Whole Blood 103 mg/dL (75-99)
[2019-04-07] MEDS: MIDODRINE 5 MG TAB PO SCH ×3 (07:07→16:57)
[2019-04-07] MEDS: PANTOPRAZOLE 40 MG TABLET PO SCH (07:07)
--- NOTE | 2019-04-07 07:29 | P.PN ---
Subjective Progress Note Date: 04/07/19 Principal diagnosis: Severe CAD and status post CABG This is a pleasant 73-year-old gentleman who sees Dr. SANAM Hinds in the office on regular basis with a past medical history significant for diabetes, hypertension, dyslipidemia, long-standing persistent atrial fibrillation on oral anticoagulation, as well as chronic kidney disease, underwent elective coronary artery bypass grafting, week ago. The recovery was slow mainly because of renal failure. On follow-up with the patient today, 04/07/2019, the patient overall is looking better. The pressure has been marginally low. EKG this morning revealed sinus rhythm. He continues to be on aspirin as well as oral anticoagulation. The creatinine has been trending down. The urine output is better as well. The chest x-ray was also reviewed. He continues to be on Lasix IV. Objective - Vital Signs Vital signs: Vital Signs Temp 97.8 F 04/07/19 04:00 Pulse 87 04/07/19 07:00 Resp 16 04/07/19 07:00 BP 116/55 04/07/19 07:00 Pulse Ox 94 L 04/07/19 07:00 Intake & Output 04/06/19 04/07/19 04/07/19 18:59 06:59 18:59 Intake Total 400 Output Total 1725 2285 150 Balance -1325 -2285 -150 Weight 111.4 kg Intake: Oral 400 Output: Urine 1725 2285 150 Other: Voiding Method Indwelling Catheter Indwelling Catheter ABP, PAP, CO, CI - Last Documented Arterial Blood Pressure 116/50 Pulmonary Artery Pressure 28/11 Cardiac Output 7.4 Cardiac Index 3.4 - Constitutional General appearance: Present: no acute distress - Respiratory Respiratory: bilateral: diminished - Cardiovascular Rhythm: regular Heart sounds: normal: S1, S2 - Labs CBC & Chem 7: 04/07/19 04:35 04/07/19 04:35 Labs: Abnormal Lab Results - Last 24 Hours (Table) 04/06/19 04/06/19 04/06/19 Range/Units 12:03 16:47 20:39 WBC (3.8-10.6) k/uL RBC (4.30-5.90) m/uL Hgb (13.0-17.5) gm/dL Hct (39.0-53.0) % RDW (11.5-15.5) % Sodium (137-145) mmol/L Chloride (98-107) mmol/L BUN (9-20) mg/dL Creatinine (0.66-1.25) mg/dL POC Glucose (mg/dL) 156 H 112 H 107 H (75-99) mg/dL Ionized Calcium Julius (4.5-5.3) mg/dL Magnesium (1.6-2.3) mg/dL 04/07/19 04/07/19 04/07/19 Range/Units 04:35 04:35 06:36 WBC 16.5 H (3.8-10.6) k/uL RBC 2.53 L (4.30-5.90) m/uL Hgb 7.5 L (13.0-17.5) gm/dL Hct 22.6 L (39.0-53.0) % RDW 16.2 H (11.5-15.5) % Sodium 133 L (137-145) mmol/L Chloride 96 L (98-107) mmol/L BUN 89 H (9-20) mg/dL Creatinine 2.96 H (0.66-1.25) mg/dL POC Glucose (mg/dL) 103 H (75-99) mg/dL Ionized Calcium Julius 4.2 L (4.5-5.3) mg/dL Magnesium 2.5 H (1.6-2.3) mg/dL Assessment and Plan Assessment: Assessment #1 severe CAD and status post CABG #2 acute on chronic renal failure #3 long-standing persistent atrial fibrillation #4 hypotension which has resolved #5 multiple comorbid conditions Plan #1 continue the current medical regimen #2 follow-up with the patient #3 continue monitor the blood work including BUN and creatinine
--- NOTE | 2019-04-07 07:34 | P.PN ---
Subjective Progress Note Date: 04/07/19 Principal diagnosis: Triple-vessel coronary artery disease. 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 POD #8 quintuple coronary artery bypass grafting using the left internal mammary artery to the left anterior descending coronary artery, left radial artery from the aorta to the first obtuse marginal coronary artery, reverse greater saphenous vein graft from the aorta to the diagonal coronary artery, reverse greater saphenous vein graft from the aorta to the posterior descending coronary artery, and reverse greater saphenous vein graft from aorta to the posterior lateral branch of the right coronary artery. Bilateral pulmonary vein isolation using the bipolar radiofrequency energy by Atricure, exclusion of the left atrial appendage using a 35 mm Atriclip, endoscopic left radial artery harvest, endoscopic harvesting of the left greater saphenous vein from the groin to above the ankle level and right greater saphenous vein from the groin to below the knee level, intraoperative graft flow measurements using the Medistim system, intraoperative transesophageal echocardiogram and epi-aortic scanning. Postoperative acute blood loss anemia, expected outcome due to hemodilution and cardiopulmonary bypass. Postoperative thrombocytopenia, expected outcome due to his preoperative thrombocytopenia and hemodilution. Postoperative controlled atrial fibrillation, expected due to his history of paroxysmal atrial fibrillation and known potential outcome from cardiac surgery Postoperative acute on chronic kidney disease, unexpected but potential outcome due to his baseline chronic kidney disease along with borderline hypotension The patient is currently sitting up in a recliner in the intensive care unit in no acute distress. States lower back pain which is better, denies chest pain, denies shortness of breath, complains of runny nose and ear pain as well as buttock pain from sitting in the chair, loose stools have stopped. Patient actively using incentive spirometry without reminders. Currently in normal sinus rhythm, remains on oral amiodarone and Lopressor as well as Eliquis. No o ther new concerns. Objective - Vital Signs Vital signs: Vital Signs Temp 97.8 F 04/07/19 04:00 Pulse 87 04/07/19 07:00 Resp 16 04/07/19 07:00 BP 116/55 04/07/19 07:00 Pulse Ox 94 L 04/07/19 07:00 Intake & Output 04/06/19 04/07/19 04/07/19 18:59 06:59 18:59 Intake Total 400 Output Total 1725 2285 150 Balance -1325 -2285 -150 Weight 111.4 kg Intake: Oral 400 Output: Urine 1725 2285 150 Other: Voiding Method Indwelling Catheter Indwelling Catheter ABP, PAP, CO, CI - Last Documented Arterial Blood Pressure 116/50 Pulmonary Artery Pressure 28/11 Cardiac Output 7.4 Cardiac Index 3.4 - Constitutional General appearance: Present: cooperative, no acute distress, obese - Respiratory Details: Lungs sounds diminished bilaterally. Respirations even, nonlabored. Currently on room air with oxygen saturation 95%. Able to achieve 1000 mL on his inc entive spirometry. Strong cough. - Cardiovascular Details: S1, S2 present. Regular rate and rhythm, normal sinus rhythm on telemetry. Sternum stable. Palpable peripheral pulses bilaterally. Trace generalized edema present. No calf pain or tenderness noted. Heart hugger in place with patient intermittently demonstrating appropriate use with much encouragement, antiembolism stockings, SCDs present. - Gastrointestinal Gastrointestinal Comment(s): Abdomen soft, nontender, nondistended, obese. Active bowel sounds present 4 quadrants. Tolerating minimal diet. Positive bowel movement. - Genitourinary Genitourinary Comment(s): Uribe present draining concentrated yellow urine. Output 150-325 mL/h overnight. - Integumentary Integumentary Comment(s): Skin is warm and dry with evidence of good perfusion. Anterior chest incision well approximated, small amount of serous drainage from distal part of the incision. Left radial artery harvest site well approximated, patient able to move all fingers, cyber defense incident responder appropriately, denies numbness or tingling. Bilateral lower extremity EVH sites well approximated. - Neurologic Neurologic: Present: CNII-XII intact - Musculoskeletal Musculoskeletal Comment(s): Patient to ambulate almost the entire ICU floor yesterday Musculoskeletal: Present: gait normal, generalized weakness, strength equal bilaterally - Psychiatric Psychiatric: Present: A&O x's 3, appropriate affect, intact judgment & insight - Allied health notes Allied health notes reviewed: nursing - Labs CBC & Chem 7: 04/07/19 04:35 04/07/19 04:35 Labs: Abnormal Lab Results - Last 24 Hours (Table) 04/06/19 04/06/19 04/06/19 Range/Units 12:03 16:47 20:39 WBC (3.8-10.6) k/uL RBC (4.30-5.90) m/uL Hgb (13.0-17.5) gm/dL Hct (39.0-53.0) % RDW (11.5-15.5) % Sodium (137-145) mmol/L Chloride (98-107) mmol/L BUN (9-20) mg/dL Creatinine (0.66-1.25) mg/dL POC Glucose (mg/dL) 156 H 112 H 107 H (75-99) mg/dL Ionized Calcium Julius (4.5-5.3) mg/dL Magnesium (1.6-2.3) mg/dL 04/07/19 04/07/19 04/07/19 Range/Units 04:35 04:35 06:36 WBC 16.5 H (3.8-10.6) k/uL RBC 2.53 L (4.30-5.90) m/uL Hgb 7.5 L (13.0-17.5) gm/dL Hct 22.6 L (39.0-53.0) % RDW 16.2 H (11.5-15.5) % Sodium 133 L (137-145) mmol/L Chloride 96 L (98-107) mmol/L BUN 89 H (9-20) mg/dL Creatinine 2.96 H (0.66-1.25) mg/dL POC Glucose (mg/dL) 103 H (75-99) mg/dL Ionized Calcium Julius 4.2 L (4.5-5.3) mg/dL Magnesium 2.5 H (1.6-2.3) mg/dL - Imaging and Cardiology Chest x-ray: image reviewed Assessment and Plan Assessment: 1. Triple-vessel coronary artery disease, status post 5 vessel CABG 2. History of coronary artery disease and myocardial infarction with multiple stents to the RCA and LAD 3. V. fib arrest after stenting in 2010 with placement of Medtronic ICD 4. Mild to moderate left ventricular dysfunction 5. Hypertension 6. Hyperlipidemia 7. Type 2 diabetes mellitus with hemoglobin A1c 7.3% 8. Chronic kidney disease stage III 9. Persistent atrial fibrillation on chronic Eliquis for anticoagulation, status post bilateral pulmonary vein isolation and left atrial appendage ligation 10. Mild COPD with preoperative FEV1 63% of predicted 11. SUSAN with home CPAP use 12. Obesity 13. Family history of heart disease 14. Postoperative acute blood loss anemia, status post transfusion, stable 15. Postoperative thrombocytopenia, resolving 16. Postoperative controlled atrial fibrillation, currently in sinus rhythm 17. Postoperative acute on chronic kidney disease, resolving Plan: 1. Continue low-dose aspirin, statin, and beta cely. Will increase his beta cely as tolerated. 2. Continue amiodarone for atrial fibrillation prophylaxis. Continue Eliquis 3. Encourage incentive spirometry is 10 times every hour while awake. 4. Bronchodilators per pulmonology management. 5. Increase activity as tolerated, PT/OT/cardiac rehab following. 6. Will decrease IV lasix to 40mg BID today, continue Zaroxolyn daily. Continue Midodrine 5 mg TID 7. Discontinue Uribe catheter after diuresis for morning Lasix, bladder scan every 6 hours, straight cath for residual greater than 300 mL. Continue Flomax 0.4 milligrams daily. 8. GI/DVT prophylaxis 9. Insulin management per primary care service. 10. Pain control with current medication regimen. Avoid Toradol due to his history of chronic kidney disease. 11. Avoid nephrotoxic agents 12. Continue to monitor daily labs and chest x-rays. Electrolyte replacement per protocol. No further transfusion. 13. Discharge planning in progress. Anticipate discharge to inpatient rehab in the next 24-48 hours 14. More recommendations to follow based on patient's clinical course. Time with Patient: Greater than 30
[2019-04-07] MEDS: IPRATROPIUM-ALBUTEROL 3 ML NEB INHALATION SCH ×4 (07:46→19:56)
[2019-04-07] MEDS: INSULIN DETEMIR (LEVEMIR) 100 UNIT/ML SYR SQ SCH (07:49)
--- NOTE | 2019-04-07 07:50 | XR ---
EXAMINATION TYPE: XR chest 1V portable DATE OF EXAM: 04/07/2019 COMPARISON: 04/06/2019 HISTORY: Post cardiac surgery TECHNIQUE: Single frontal view of the chest is obtained. FINDINGS: Cardiac device and postsurgical changes are noted. There is bilateral consolidation and pl eural effusion. No pneumothorax. The heart is enlarged and there is atherosclerotic change of the aor ta. IMPRESSION: Correlate for CHF otherwise consider pneumonia.
[2019-04-07] MEDS ORDERED: POTASSIUM CHLORIDE ER 20 MEQ TAB.ER PO SCH (08:00)
[2019-04-07] MEDS: ALLOPURINOL 100 MG TAB PO SCH ×2 (08:04→20:53)
[2019-04-07] MEDS: APIXABAN 2.5 MG TABLET PO SCH ×2 (08:04→20:54)
[2019-04-07] MEDS: COLCHICINE 0.6 MG EACH PO SCH (08:04)
[2019-04-07] MEDS: ASPIRIN 81 MG PO SCH (08:04)
[2019-04-07] MEDS: AMIODARONE 200 MG TAB PO SCH ×2 (08:05→20:54)
[2019-04-07] MEDS: ATORVASTATIN 40 MG TAB PO SCH (08:07)
[2019-04-07] MEDS: METOLAZONE 5 MG TAB PO SCH (08:07)
[2019-04-07] MEDS: NYSTATIN 100,000 UNIT/ML SUSP 500,000 UNIT/5 ML CUP PO SCH ×4 (08:07→21:00)
[2019-04-07] MEDS: METOPROLOL TARTRATE 25 MG TAB PO SCH ×2 (08:07→20:58)
[2019-04-07] MEDS: FUROSEMIDE 10 MG/ML 4 ML VIAL IV SCH ×2 (08:44→20:54)
[2019-04-07] MEDS: LIDOCAINE 5% PATCH TOPICAL SCH (08:44)
[2019-04-07] MEDS: SODIUM CHLORIDE 0.65% NASAL SPRAY 44 ML BTL NASAL PRN ×2 (10:08→19:12)
[2019-04-07] MEDS: TAMSULOSIN 0.4 MG CAP.ER.24H PO SCH (10:08)
[2019-04-07 11:42] LABS: Glucose,Whole Blood 114 mg/dL (75-99)
--- NOTE | 2019-04-07 13:23 | P.PN ---
Subjective Progress Note Date: 04/07/19 Principal diagnosis: Status post CABG, postoperative day #8 On today's evaluation of 04/05/2019, seeing this patient for a follow-up. He is awake and alert on room air oxygen. His chest x-ray showing atelectatic changes especially left lung base. He still has edema in lower extremities bilaterally. He was given a dose of Zaroxolyn and he is also on IV Lasix a 60 mg every 12 hours. The patient has a creatinine of 3.17 which is essentially stable compared to yesterday. The white cell count is at 7.5. He is using incentive spirometer and achieving approximately a liter. He is not having any chest pain. He is in atrial fibrillation for now. His medications include amiodarone 200 mg by mouth twice a day, metoprolol 25 mg by mouth twice a day, aspirin,Eliquis 2.5 mg twice a day and Midrin was also added regarding his lower blood pressure. Insulin is at 34 units subcu along with 12 units with meals and the scale. His sternum stable clean and intact. No other significant events over the past 24 hours. On 04/06/2019, patient remains in the ICU, complaining of generalized aches and pains, sore throat, sore legs, sore buttock, and feels generally weak. Patient is being evaluated by physical therapy, and he is being considered for possible referral to rehab at [facility]. Chest x-ray continues to show mild interstitial edema. Patient is receiving diuretics by thoracic surgery. All labs were reviewed today, BUN is 93 creatinine is 3.02 hemoglobin is 7.5. On 04/07/2019,POD #8 quintuple coronary artery bypass grafting using the left internal mammary artery to the left anterior descending coronary artery, left radial artery from the aorta to the first obtuse marginal coronary artery, reverse greater saphenous vein graft from the aorta to the diagonal coronary artery, reverse greater saphenous vein graft from the aorta to the posterior descending coronary artery, and reverse greater saphenous vein graft from aorta to the posterior lateral branch of the right coronary artery. patient remains in the intensive care unit, sitting up in a recliner in the intensive care unit, in no distress, doing fairly well with incentive spirometry and achieving about 1000 and mild. No more loose stools. Patient remains on oral amiodarone, Lopressor, and Eliquis. Presently in normal sinus rhythm. Labs today showed WBC of 16.5 hemoglobin is 7.5 Lites are normal BUN is 89 and creatinine 2.96. Chest x-ray showed mild congestive heart failure. Objective - Vital Signs Vital signs: Vital Signs Temp 97.8 F 04/07/19 04:00 Pulse 88 04/07/19 12:00 Resp 14 04/07/19 12:00 BP 114/57 04/07/19 12:00 Pulse Ox 95 04/07/19 12:00 Intake & Output 04/06/19 04/07/19 04/07/19 18:59 06:59 18:59 Intake Total 400 Output Total 1725 2285 1400 Balance -1325 -2285 -1400 Weight 111.4 kg 111.4 kg Intake: Oral 400 Output: Urine 1725 2285 1400 Other: Voiding Method Indwelling Catheter Indwelling Catheter Indwelling Catheter ABP, PAP, CO, CI - Last Documented Arterial Blood Pressure 116/50 Pulmonary Artery Pressure 28/11 Cardiac Output 7.4 Cardiac Index 3.4 - Exam Physical exam revealed a 73-year-old white male in no distress. Presently, receiving an updraft treatment. HEENT: No neck masses no JVD, throat is clear. Lungs: Minimal fine crackles at the bases no rhonchi no wheezes. Chest Wall symmetrical chest expansion. No chest wall tenderness. Incision is clean. Heart: Irregular irregular rhythm, no S3 gallop. Abdomen: Obese, soft, nontender, no rebound no guarding. Extremities: No clubbing or cyanosis, trace of edema noted bilaterally. Pulses: Good pulses bilaterally 2+. Skin: Normal skin turgor, no rashes.. Neurologic: Alert and oriented 3, no gross focal neurologic deficit. Psychiatric: Normal mood affect and normal mental status examination. - Labs CBC & Chem 7: 04/07/19 04:35 04/07/19 04:35 Labs: Abnormal Lab Results - Last 24 Hours (Table) 04/06/19 04/06/19 04/07/19 Range/Units 16:47 20:39 04:35 WBC 16.5 H (3.8-10.6) k/uL RBC 2.53 L (4.30-5.90) m/uL Hgb 7.5 L (13.0-17.5) gm/dL Hct 22.6 L (39.0-53.0) % RDW 16.2 H (11.5-15.5) % Sodium (137-145) mmol/L Chloride (98-107) mmol/L BUN (9-20) mg/dL Creatinine (0.66-1.25) mg/dL POC Glucose (mg/dL) 112 H 107 H (75-99) mg/dL Ionized Calcium Julius (4.5-5.3) mg/dL Magnesium (1.6-2.3) mg/dL 04/07/19 04/07/19 04/07/19 Range/Units 04:35 06:36 11:40 WBC (3.8-10.6) k/uL RBC (4.30-5.90) m/uL Hgb (13.0-17.5) gm/dL Hct (39.0-53.0) % RDW (11.5-15.5) % Sodium 133 L (137-145) mmol/L Chloride 96 L (98-107) mmol/L BUN 89 H (9-20) mg/dL Creatinine 2.96 H (0.66-1.25) mg/dL POC Glucose (mg/dL) 103 H 114 H (75-99) mg/dL Ionized Calcium Julius 4.2 L (4.5-5.3) mg/dL Magnesium 2.5 H (1.6-2.3) mg/dL Assessment and Plan Assessment: Impression: 1 status post CABG for triple vessel coronary artery disease, postoperative day #8 2 history of non-ST elevation myocardial infarction 3 chronic atrial fibrillation 4 hypertension 5 type 2 diabetes 6 obstructive sleep apnea syndrome on home CPAP 7 chronic kidney disease 8 history of ventricular tachycardia and cardiomyopathy previous AICD placement. 9 medical debility. Recommendation: Continue present supportive care measures, continue incentive spirometry, continue ambulation, Continue low-dose aspirin, statins and beta blockers Encourage incentive spirometry Continue bronchodilators Increase activity as tolerated Continue Lasix and Zaroxolyn Continue GI and DVT prophylaxis Continue pain control management Continue to avoid nephrotoxic agents Continue to monitor daily x-rays of the chest and daily labs Discharge planning, likely tomorrow the patient will go to rehab. Time with Patient: Less than 30
--- NOTE | 2019-04-07 13:26 | P.PN ---
Subjective Progress Note Date: 04/07/19 This is a 73-year-old male patient of Dr. Guevara with past medical history for coronary artery disease, paroxysmal atrial fibrillation on eliquis, diabetes mellitus type II insulin requiring with diabetic neuropathy, chronic kidney disease, kidney stones, COPD, obstructive sleep apnea with CPAP, hyperlipidemia, hypertension, and rheumatoid arthritis and cirrhotic arthritis, gout, benign prostatic hypertrophy. His primary care physician is Dr. Guevara he follows with Dr. 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 He had a heart catheterization done in 2005 that showed moderate disease involving the LAD and diagonal was mild involvement patient had some irregular lesion of the circumflex. He was seen at [facility] for chest pain and non-ST elevated [place] 2010. At that time, his heart catheterization revealed an acutely occluded right coronary artery, significant disease in the moderate size third obtuse marginal branch with moderate disease in the LAD and left circumflex. Ejection fraction was 3540 percent. He underwent successful stenting of the distal RCA. Later in his room, patient developed ventricular fibrillation and was quickly resuscitated and underwent heart catheterization and underwent angioplasty and stenting of the PLV branch of the right coronary artery. On 09/14/2010, patient underwent a single chamber cardioverter defibrillator implantation. His echoca rdiogram revealed mild pulmonary hypertension, ejection fraction 40% at that time. In 2014 he underwent heart catheterization finding 45% proximal right coronary artery stenosis and significant mid LAD lesion which underwent PTCA and stenting of the mid LAD. Patient's also gives history of a septic knee joint needing washout which was done at [facility] at that time patient developed atrial fibrillation in the postop period. He also had a run of V. tach for which his AICD fired. Ever since that episode of sepsis, patient has had chronic kidney disease. Regarding his diabetes, he follows with Dr. Yoanna Mccormick. He is currently on Trulicity 1.5mg weekly, Lantus 56 units in the morning and recently changed to 18 units of NovoLog with meals. His last hemoglobin A1c was 7.4 in December at the [facility] clinic. Regarding rheumatoid arthritis and psoriatic arthritis, patient follows with Dr. Shelton. In the past he has been on methotrexate, Enbrel and Humira. He was recently on Ilaris but this was stopped when he started having cardiac problems as there is concern for arrhythmia. 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 The patient have follow-up in the cardiology office in December of this year and underwent a Lexiscan stress test that did not demonstrate any ischemia. Over the past 3-4 weeks she has had intermittent substernal chest pain with radiation to his arms. He was recommended for heart catheterization which was completed yesterday that found proximal LAD stenosis 60%, mid LAD stenosis 30%, circumflex stenosis 90% and RCA stenosis 60. Cardiothoracic surgery was consulted for recommendations regarding CABG versus stenting. Carotid ultrasound revealed mild plaque bilateral bifurcations but no significant stenosis. Chest x-ray reveals no acute cardiopulmonary process. Underlying COPD. patient has been evaluated by cardiothoracic surgery. Plan for tomorrow is a repeat heart catheterization to further evaluate LAD. 03/26: Patient underwent heart catheterization today with Dr. SANAM Hinds finding significant lesion in the proximal LAD and area of 2.6 mm2 also within the left main and heavy circumferential desiccation lesion in the area of 3.2 mm2. Both were deemed significant and requires bypass surgery. The patient is seen today while in the recovery area. He denies having any chest pain or shortness of breath at this time. Blood sugars will need to be well-controlled and we will make arrangements for Levemir to be 30 units in the morning and 40 at bedtime. 03/27: The patient complains of nasal congestion since he had his procedure yesterday. We will add Flonase. Regarding blood sugars nighttime blood sugar remains quite elevated and we will make additional changes to his insulins by adding NovoLog scheduled 3 units with each meal and increase nighttime Levemir to 45 units. He is scheduled for open heart on Saturday. 03/28: Patient is resting comfortably in bed without any acute distress. Patient has no complaints at this time. Patient did not receive his Levemir last night due to his blood sugar being 112. Patient's blood sugar was elevated in 150s this morning due to missing the dose of Levemir. Patient is scheduled for open heart surgery on Saturday. 03/29: Patient is sitting up in bed with at the bedside. Patient is in no acute distress. Patient has no complaints or concerns at this time. He slept well last night. Patient was given his Levemir last night his blood sugar this morning was 120. Patient is waiting to have open heart surgery on Saturday. Questions were answered. 03/30: Patient will be going for open heart surgery today we will be back in ICU on the respirator and insulin drip. 03/31: Patient is off mechanical ventilation sitting in his chair less pain and discomfort still have chest tube complaining of mild chest pain from his surgery but no other major complaint. 04/01: Patient is doing much better most of his tube out's 1 getting catheter was removed, blood sugar is much better pulse rate is running in the 60s and 70s, patient is hemodynamically stable no transfusion done last 24 hours. 04/02: Blood sugars are stable but he is still on insulin drip which we will transition to Levemir 40 units this morning, discontinue the insulin drip, start NovoLog 10 units with meals along with scale every 4 hours. Patient is complaining of back pain and neck pain. He has been tried on Lidoderm cream without improvement and now lidocaine patch. We will add in baclofen as needed. All chest tubes and Cordis out today. Uribe catheter remained for retention and patient has been started back on Flomax. Consultation In place for Dr. Haji. Patient encouraged to increase ambulation. 04/03: Patient remains in the intensive care unit. conveyor monitor is A. fib with controlled rate. Repeat echocardiogram has been ordered by cardiology. Back and neck pain appeared to be improved from yesterday. He has had marginal urine output and has received fluid boluses. Due to hypotension, midodrine added, Norvasc discontinued. IV Lasix 60 mg 1 dose was ordered for today. Uribe remains in place and patient continued on Flomax. Consult was added for nephrology regarding acute kidney injury. Repeat blood work today reveals white count of 15.9, hemoglobin 8.4, platelet count 127. BUN 68 and creatinine 3.15. Blood sugars are running between 178 and 211. We are increasing Levemir to 65 units which will start tomorrow and increasing NovoLog with meals to 22 units 3 times daily. Patient is continued on NovoLog scale. Dr. Haji consult is esha yang as he is not available. 04/04: Patient remains in intensive care unit, his sitting in the chair he appears a bit weaker today his hemoglobin is is down to 7.6, he had an episode of low sugar is not eating much adjusted his insulin regimen to Levemir 45 units in the morning as well as decreasing his Humalog to 12 units plus scale with meals. Patient continues to be somewhat short of breath, he continues to have shallow breathing, he is using incentive spirometer on and off, he is generally weak he will require subacute rehabilitation versus inpatient rehabilitation. 04/05: Patient is sitting up in a chair his feeling fatigued today he is having more diarrhea, we will check his stool for C. diff, he has episode of hyperglycemia yesterday subsequently we'll decrease his Levemir to 34 units in the morning along with 50% of his Humalog if his not eating greater than 50% of his meal and to hold if is less than 100, patient suffered from Odynophagia and he does have significant thrush we will start him on nystatin swish and swallow 5 mL before each meal and at bedtime, this was discussed with the nursing staff at the bedside. 04/06: C. difficile toxin came back negative. He received 1 dose of Imodium yesterday. Repeat lab work this morning reveals WBC 12.7, hemoglobin 7.5 plat elet count 197. Sodium 133, potassium 3.7, chloride 101, CO2 18, BUN 93 and creatinine 3.02. Blood sugars running between 97 and 137 following adjustments to insulins. Patient has been afebrile, heart rate 75, blood pressure 121/56, pulse ox 97%. conveyor monitor atrial fibrillation with atrial flutter. He is currently on amiodarone oral, Lopressor and eliquis. Patient is reaching 750 ml on incentive spirometry. He is eating an approximate 75% of most of his meals. Yesterday, patient was started on Lasix 60 mg IV every 12 hours and Zaroxolyn 5 mg daily. Weight is down 3-1/2 kg from yesterday. Uribe catheter is in place for retention. He has been seen by Dr. Haji and appears to be a good candidate for inpatient rehab. Repeat chest x-ray reveals mild improved pulmonary vascular congestion with stable small left pleural effusion, trace right pleural effusion and bibasilar airspace disease. Patient states that he did not sleep well last night. He is also complaining of lower abdominal pain and states he did not pass any gas this morning. Uribe cath remains in place. 04/07: Patient remains in intensive care unit. He states he is feeling better today. His appetite is a little better. Has decreased lower extremity edema. He complains of dry mouth. He is passing gas. He has been afebrile, heart rate 88, blood pressure 114/57, pulse ox 95% on room air. Repeat lab work reveals a white count of 16.5, hemoglobin 7.5, platelet count 218. BUN 89 creatinine 2.96, sodium 133, potassium 3.9, chloride 96, CO2 24. Blood sugars running between 80 and 114. Magnesium 2.5. Uribe catheter remains in place. He is currently on Lasix 40 mg IV every 12 hours. Review of systems: CONSTITUTIONAL: Overweight no acute respiratory distress, appears fatigued, denies fever, denies chills. EYES: No icterus sclerae, no conjunctivitis. EARS, NOSE, MOUTH, THROAT, and FACE: No blurred vision, no sore throat. RESPIRATORY: Mild shortness of breath no cough wheezes. CARDIOVASCULAR: Positive chest pain and angina with mild shortness of breath positive PND and orthopnea. GASTROINTESTINAL: Denies Abd pain, Nausea or vomiting, denies Diarrhea or constipation, No GI Bleed, no distention or masses. GENITOURINARY: Negative for Hematuria or UTI, no kidney stones. Reports retention INTEGUMENT/BREAST: Negative for any muscular injury with mild osteoarthritis. HEMATOLOGIC/LYMPHATIC: Negative for bleed or purpura. MUSCULOSKELTAL: Multiple muscle and tendon involvement generalized arthralgia and myalgia. Reports neck pain. Reports lumbar back pain NEURLOGICAL: No LOC, Sz or syncope, blurred vision dizziness or abnormality. BEHAVIORAL/PSYCH: Negative. ENDOCRINE: Negative. Objective - Vital Signs Vital signs: Vital Signs Temp 97.8 F 04/07/19 04:00 Pulse 84 04/07/19 10:00 Resp 16 04/07/19 10:00 BP 112/56 04/07/19 10:00 Pulse Ox 97 04/07/19 10:00 Intake & Output 04/06/19 04/07/19 04/07/19 18:59 06:59 18:59 Intake Total 400 Output Total 0306 2285 800 Balance -7373 -3262 -588 Weight 111.4 kg Intake: Oral 400 Output: Urine 6827 2289 800 Other: Voiding Method Indwelling Catheter Indwelling Catheter Indwelling Catheter ABP, PAP, CO, CI - Last Documented Arterial Blood Pressure 116/50 Pulmonary Artery Pressure 28/11 Cardiac Output 7.4 Cardiac Index 3.4 - Exam General Appearance: Alert, cooperative, no distress, appears stated age. Patient is sitting up in a recliner. Neck HEENT: Supple, no lymphadenopathy, no thyroid enlargement, no carotid bruits. Lungs: Decrease breath some bilateral. Chest Wall: Incision from his surgery with dressing in place Heart: Irregular rate and rhythm, S1, S2 normal, no murmur, rub or gallop. Back: Symmetric, no curvature, ROM normal, no CVA tenderness. Abdomen: Soft, non-tender, bowel sounds active all four quadrants, no masses, no organomegaly. Uribe catheter draining clear harvinder urine Extremities: Trace edema. Pulses: 2+ and symmetric. Skin: Skin color, texture, tugor normal, no rashes or lesions. Neurologic: Alert oriented x3 cranial nerves II through XII intact, no motor deficit, no abnormal balance or gait. Generalized weakness noted - Labs CBC & Chem 7: 04/07/19 04:35 04/07/19 04:35 Labs: Abnormal Lab Results - Last 24 Hours (Table) 04/06/19 04/06/19 04/06/19 Range/Units 12:03 16:47 20:39 WBC (3.8-10.6) k/uL RBC (4.30-5.90) m/uL Hgb (13.0-17.5) gm/dL Hct (39.0-53.0) % RDW (11.5-15.5) % Sodium (137-145) mmol/L Chloride (98-107) mmol/L BUN (9-20) mg/dL Creatinine (0.66-1.25) mg/dL POC Glucose (mg/dL) 156 H 112 H 107 H (75-99) mg/dL Ionized Calcium Julius (4.5-5.3) mg/dL Magnesium (1.6-2.3) mg/dL 04/07/19 04/07/19 04/07/19 Range/Units 04:35 04:35 06:36 WBC 16.5 H (3.8-10.6) k/uL RBC 2.53 L (4.30-5.90) m/uL Hgb 7.5 L (13.0-17.5) gm/dL Hct 22.6 L (39.0-53.0) % RDW 16.2 H (11.5-15.5) % Sodium 133 L (137-145) mmol/L Chloride 96 L (98-107) mmol/L BUN 89 H (9-20) mg/dL Creatinine 2.96 H (0.66-1.25) mg/dL POC Glucose (mg/dL) 103 H (75-99) mg/dL Ionized Calcium Julius 4.2 L (4.5-5.3) mg/dL Magnesium 2.5 H (1.6-2.3) mg/dL Assessment and Plan Plan: 1. Triple-vessel coronary artery disease: Post 5 vessel bypass surgery continue aggressive pulmonary toileting. Lasix was decreased to 40 mg IV every 12 hours. 2. History of non-ST elevated myocardial infarction, coronary artery disease and multiple stents. Just had 5 vessel bypass surgery and doing well in his recovery so far 3. Diabetes mellitus type 2 with end organ damage. Continue Levemir to 34 units units in the morning, increase NovoLog scheduled 12 units with meals and continue NovoLog scale, also hold Humalog for BGM was in 100. 4. Chronic atrial fibrillation. Continue oral amiodarone, Lopressor and eliquis. 5. Hypertension. Continue Lopressor 6. Hyperlipidemia. Continue atorvastatin 40 mg daily 7. Chronic kidney disease. Monitor renal function and avoid nephrotoxic agents. 8. Obstructive sleep apnea with home CPAP. 9. Diarrhea. Clostridium difficile negative. 10. History of ventricular tachycardia and cardiomyopathy status post AICD, stable 11. Gastroesophageal reflux disease. Continue Protonix 12. Acute kidney injury with chronic kidney disease stage 3. Avoid nephrotoxic agents. 13. Benign prostatic hypertrophy. Continue Flomax. 14. Thrush. Start the patient on nystatin swish and swallow 5 mL before each meal and at bedtime. 15. Medical debility. Physical therapy evaluation likely will require subacute rehabilitation or inpatient rehab. Discharge plan: Most likely inpatient rehab at [facility] on Saturday Impression and plan of care have been directed as dictated by the signing physician. Leigh Bailey nurse practitioner acting as scribe for signing physician.
[2019-04-07 16:39] LABS: Glucose,Whole Blood 98 mg/dL (75-99)
[2019-04-07 21:00] LABS: Glucose,Whole Blood 152 mg/dL (75-99)
[2019-04-08] MEDS: ACETAMINOPHEN TAB 500 MG TAB PO PRN (03:42)
[2019-04-08 03:49] LABS: Glucose,Whole Blood 173 mg/dL (75-99)
[2019-04-08] MEDS: INSULIN ASPART (NovoLOG) 100 UNIT/ML VIAL SQ SCH ×8 (03:50→20:48)
[2019-04-08 05:06] LABS: Anisocytosis Slight; HCT 21.6 % (39.0-53.0); HGB 7.1 gm/dL (13.0-17.5); Hypochromasia Slight; MCV 90.9 fL (80.0-100.0); Platelet Count 220 k/uL (150-450); Poikilocytosis Slight; RBC 2.38 m/uL (4.30-5.90); RDW 16.2 % (11.5-15.5); WBC 14.5 k/uL (3.8-10.6)
[2019-04-08 05:13] LABS: Ionized Calcium 4.6 mg/dL (4.5-5.3)
[2019-04-08 05:17] LABS: Calcium 8.5 mg/dL (8.4-10.2); Magnesium 2.3 mg/dL (1.6-2.3); Potassium 3.5 mmol/L (3.5-5.1)
[2019-04-08] MEDS ORDERED: LOPERAMIDE 2 MG CAP PO ONE (06:10)
[2019-04-08] MEDS ORDERED: POTASSIUM CHLORIDE ER 20 MEQ TAB.ER PO STA (06:13)
[2019-04-08] MEDS: MIDODRINE 5 MG TAB PO SCH ×3 (06:35→17:03)
[2019-04-08] MEDS: PANTOPRAZOLE 40 MG TABLET PO SCH (06:35)
[2019-04-08 06:45] LABS: Glucose,Whole Blood 137 mg/dL (75-99)
[2019-04-08] MEDS: INSULIN DETEMIR (LEVEMIR) 100 UNIT/ML SYR SQ SCH (06:56)
--- NOTE | 2019-04-08 07:25 | XR ---
EXAMINATION TYPE: XR chest 1V portable DATE OF EXAM: 04/08/2019 COMPARISON: 04/07/2019 HISTORY: Status post cardiac surgery TECHNIQUE: Single frontal view of the chest is obtained. FINDINGS: There is an enlarged cardiac mediastinal silhouette with post CABG changes and single lead cardiac defibrillator on the left. There is slight improved aeration of the retrocardiac airspace wi th persistent opacification and right middle lobe opacification. Mild pulmonary vascular congestion i s seen. There is mild diffuse osseous demineralization. Trace pleural effusion suspected. No sizable pneumothorax. IMPRESSION: Slightly improving fluid overload, likely on the basis of congestive heart failure.
--- NOTE | 2019-04-08 07:38 | P.PN ---
Subjective Progress Note Date: 04/08/19 Principal diagnosis: Severe CAD and status post CABG This is a pleasant 73-year-old gentleman who sees Dr. SANAM Hinds in the office on regular basis with a past medical history significant for diabetes, hypertension, dyslipidemia, long-standing persistent atrial fibrillation on oral anticoagulation, as well as chronic kidney disease, underwent elective coronary artery bypass grafting, week ago. The recovery was slow mainly because of renal failure. On follow-up with the patient today, April [id number], overall the patient is doing better clinically. The creatinine is trending down. The pressure continues to be marginal. The hemoglobin is marginal at 7.1. I would recommend giving the patient 20 units of packed RBC before he will be discharged into an extended-care facility. The dose of Lasix was increased yesterday. Objective - Vital Signs Vital signs: Vital Signs Temp 98.2 F 04/08/19 04:00 Pulse 82 04/08/19 07:00 Resp 20 04/08/19 07:00 BP 103/55 04/08/19 07:00 Pulse Ox 95 04/08/19 07:00 Intake & Output 04/07/19 04/08/19 04/08/19 18:59 06:59 18:59 Output Total 2175 1735 55 Balance -2175 -1735 -55 Weight 111.4 kg 105.4 kg Output: Urine 2175 1735 55 Other: Voiding Method Indwelling Catheter Indwelling Catheter ABP, PAP, CO, CI - Last Documented Arterial Blood Pressure 116/50 Pulmonary Artery Pressure 28/11 Cardiac Output 7.4 Cardiac Index 3.4 - Constitutional General appearance: Present: no acute distress - Respiratory Respiratory: bilateral: diminished - Cardiovascular Rhythm: regular Heart sounds: normal: S1, S2 - Labs CBC & Chem 7: 04/08/19 04:46 04/08/19 04:46 Labs: Abnormal Lab Results - Last 24 Hours (Table) 04/07/19 04/07/19 04/08/19 Range/Units 11:40 20:58 03:48 WBC (3.8-10.6) k/uL RBC (4.30-5.90) m/uL Hgb (13.0-17.5) gm/dL Hct (39.0-53.0) % RDW (11.5-15.5) % Sodium (137-145) mmol/L Chloride (98-107) mmol/L BUN (9-20) mg/dL Creatinine (0.66-1.25) mg/dL Glucose (74-99) mg/dL POC Glucose (mg/dL) 114 H 152 H 173 H (75-99) mg/dL 04/08/19 04/08/19 04/08/19 Range/Units 04:46 04:46 06:44 WBC 14.5 H (3.8-10.6) k/uL RBC 2.38 L (4.30-5.90) m/uL Hgb 7.1 L (13.0-17.5) gm/dL Hct 21.6 L (39.0-53.0) % RDW 16.2 H (11.5-15.5) % Sodium 130 L (137-145) mmol/L Chloride 95 L (98-107) mmol/L BUN 84 H (9-20) mg/dL Creatinine 2.56 H (0.66-1.25) mg/dL Glucose 133 H (74-99) mg/dL POC Glucose (mg/dL) 137 H (75-99) mg/dL Assessment and Plan Assessment: Assessment #1 severe CAD and status post CABG #2 acute on chronic renal failure #3 long-standing persistent atrial fibrillation #4 hypotension which has resolved #5 multiple comorbid conditions Plan #1 continue the current medical regimen #2 follow-up with the patient #3 patient is possibly going into an extended-care facility today
[2019-04-08] MEDS: IPRATROPIUM-ALBUTEROL 3 ML NEB INHALATION SCH ×4 (08:03→18:51)
[2019-04-08] MEDS ORDERED: LOPERAMIDE 2 MG CAP PO STA (08:51)
--- NOTE | 2019-04-08 08:59 | P.PN ---
Subjective Progress Note Date: 04/08/19 Principal diagnosis: Triple-vessel coronary artery disease. 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 POD #9 quintuple coronary artery bypass grafting using the left internal mammary artery to the left anterior descending coronary artery, left radial artery from the aorta to the first obtuse marginal coronary artery, reverse greater saphenous vein graft from the aorta to the diagonal coronary artery, reverse greater saphenous vein graft from the aorta to the posterior descending coronary artery, and reverse greater saphenous vein graft from aorta to the posterior lateral branch of the right coronary artery. Bilateral pulmonary vein isolation using the bipolar radiofrequency energy by Atricure, exclusion of the left atrial appendage using a 35 mm Atriclip, endoscopic left radial artery harvest, endoscopic harvesting of the left greater saphenous vein from the groin to above the ankle level and right greater saphenous vein from the groin to below the knee level, intraoperative graft flow measurements using the Medistim system, intraoperative transesophageal echocardiogram and epi-aortic scanning. Postoperative acute blood loss anemia, expected outcome due to hemodilution and cardiopulmonary bypass. Postoperative thrombocytopenia, expected outcome due to his preoperative thrombocytopenia and hemodilution. Postoperative controlled atrial fibrillation, expected due to his history of paroxysmal atrial fibrillation and known potential outcome from cardiac surgery Postoperative acute on chronic kidney disease, unexpected but potential outcome due to his baseline chronic kidney disease along with borderline hypotension Hypotension, expected, known possible outcome of surgery Diarrhea, unexpected, C-diff negative The patient is currently laying in bed in the intensive care unit in no acute distress. Denies chest pain, denies shortness of breath, complains of runny nose and ear pain as well as buttock pain from sitting in the chair, started to have diarrhea again last night. Patient actively using incentive spirometry without reminders. Currently in normal sinus rhythm, remains on oral amiodarone and Lopressor as well as Eliquis. No other new concerns. Objective - Vital Signs Vital signs: Vital Signs Temp 98.2 F 04/08/19 04:00 Pulse 82 04/08/19 07:00 Resp 20 04/08/19 07:00 BP 103/55 04/08/19 07:00 Pulse Ox 95 04/08/19 07:00 Intake & Output 04/07/19 04/08/19 04/08/19 18:59 06:59 18:59 Output Total 2175 1735 55 Balance -2175 -1735 -55 Weight 111.4 kg 105.4 kg Output: Urine 2175 1735 55 Other: Voiding Method Indwelling Catheter Indwelling Catheter ABP, PAP, CO, CI - Last Documented Arterial Blood Pressure 116/50 Pulmonary Artery Pressure 28/11 Cardiac Output 7.4 Cardiac Index 3.4 - Constitutional General appearance: Present: cooperative, no acute distress, obese - Respiratory Details: Lungs sounds diminished bilaterally. Respirations even, nonlabored. Currently on room air with oxygen saturation 96%. Able to achieve 1000 mL on his incentive spirometry. Strong, non-productive cough. - Cardiovascular Details: S1, S2 present. Regular rate and rhythm, normal sinus rhythm on telemetry. Sternum stable. Palpable peripheral pulses bilaterally. Trace generalized edema present, improving. No calf pain or tenderness noted. Heart hugger in place with patient intermittently demonstrating appropriate use with much encouragement, antiembolism stockings, SCDs present. - Gastrointestinal Gastrointestinal Comment(s): Abdomen soft, nontender, nondistended, obese. Active bowel sounds present 4 quadrants. Tolerating minimal diet. Positive loose yellowish brown stool starting last night, fecal management system in place. - Genitourinary Genitourinary Comment(s): Uribe discontinued this morning, urine output overnight 75-125 mL/hr, 3900 mL in the last 24 hours. - Integumentary Integumentary Comment(s): Skin is warm and dry with evidence of good perfusion. Anterior chest incision well approximated, small amount of serous drainage from distal part of the incision. 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 Bilateral lower extremity EVH sites well approximated. - Neurologic Neurologic: Present: CNII-XII intact - Musculoskeletal Musculoskeletal Comment(s): Able to ambulate completely around the ICU hallway yesterday with minimal breaks Musculoskeletal: Present: gait normal, generalized weakness, strength equal bilaterally - Psychiatric Psychiatric: Present: A&O x's 3, appropriate affect, intact judgment & insight - Allied health notes Allied health notes reviewed: nursing - Labs CBC & Chem 7: 04/08/19 04:46 04/08/19 04:46 Labs: Abnormal Lab Results - Last 24 Hours (Table) 04/07/19 04/07/19 04/08/19 Range/Units 11:40 20:58 03:48 WBC (3.8-10.6) k/uL RBC (4.30-5.90) m/uL Hgb (13.0-17.5) gm/dL Hct (39.0-53.0) % RDW (11.5-15.5) % Sodium (137-145) mmol/L Chloride (98-107) mmol/L BUN (9-20) mg/dL Creatinine (0.66-1.25) mg/dL Glucose (74-99) mg/dL POC Glucose (mg/dL) 114 H 152 H 173 H (75-99) mg/dL 04/08/19 04/08/19 04/08/19 Range/Units 04:46 04:46 06:44 WBC 14.5 H (3.8-10.6) k/uL RBC 2.38 L (4.30-5.90) m/uL Hgb 7.1 L (13.0-17.5) gm/dL Hct 21.6 L (39.0-53.0) % RDW 16.2 H (11.5-15.5) % Sodium 130 L (137-145) mmol/L Chloride 95 L (98-107) mmol/L BUN 84 H (9-20) mg/dL Creatinine 2.56 H (0.66-1.25) mg/dL Glucose 133 H (74-99) mg/dL POC Glucose (mg/dL) 137 H (75-99) mg/dL - Imaging and Cardiology Chest x-ray: report reviewed, image reviewed Assessment and Plan Assessment: 1. Triple-vessel coronary artery disease, status post 5 vessel CABG 2. History of coronary artery disease and myocardial infarction with multiple stents to the RCA and LAD 3. V. fib arrest after stenting in 2010 with placement of Medtronic ICD 4. Mild to moderate left ventricular dysfunction 5. Hypertension 6. Hyperlipidemia 7. Type 2 diabetes mellitus with hemoglobin A1c 7.3% 8. Chronic kidney disease stage III 9. Persistent atrial fibrillation on chronic Eliquis for anticoagulation, status post bilateral pulmonary vein isolation and left atrial appendage ligation 10. Mild COPD with preoperative FEV1 63% of predicted 11. SUSAN with home CPAP use 12. Obesity 13. Family history of heart disease 14. Postoperative acute blood loss anemia, status post transfusion, stable 15. Postoperative thrombocytopenia, resolving 16. Postoperative controlled atrial fibrillation, currently in sinus rhythm 17. Postoperative acute on chronic kidney disease, resolving 18. Hypotension 19. Diarrhea Plan: 1. Continue low-dose aspirin, statin, and beta cely. Will increase his beta cely as tolerated. 2. Continue amiodarone for atrial fibrillation prophylaxis. Continue Eliquis 3. Encourage incentive spirometry is 10 times every hour while awake. 4. Bronchodilators per pulmonology management. 5. Increase activity as tolerated, PT/OT/cardiac rehab following. 6. Discontinue IV lasix, zaroxyln. Continue Midodrine 5 mg TID 7. Uribe discontinued, monitor for residual, bladder scan every 6 hours, str aight cath for residual greater than 300 mL. Continue Flomax 0.4 milligrams daily. 8. GI/DVT prophylaxis 9. Insulin management per primary care service. 10. Pain control with current medication regimen. Avoid Toradol due to his history of chronic kidney disease. 11. Avoid nephrotoxic agents 12. Continue to monitor daily labs and chest x-rays. Electrolyte replacement per protocol. No transfusion at this time 13. Ordered Claritin for nasal drainage. Ordered Immodium for diarrhea, may give repeat dose. Stool sample sent for culture, WBC, occult blood 14. Discharge planning in progress. Anticipate discharge to inpatient rehab when stable 15. More recommendations to follow based on patient's clinical course. Time with Patient: Greater than 30
[2019-04-08] MEDS ORDERED: LORATADINE 10 MG TAB PO SCH (09:00)
[2019-04-08] MEDS ORDERED: COLCHICINE 0.6 MG EACH PO SCH ×2 (09:00)
[2019-04-08] MEDS: ALLOPURINOL 100 MG TAB PO SCH ×2 (09:55→20:48)
[2019-04-08] MEDS: AMIODARONE 200 MG TAB PO SCH ×2 (09:55→20:48)
[2019-04-08] MEDS: APIXABAN 2.5 MG TABLET PO SCH ×2 (09:55→20:48)
[2019-04-08] MEDS: ATORVASTATIN 40 MG TAB PO SCH (09:56)
[2019-04-08] MEDS: ASPIRIN 81 MG PO SCH (09:56)
[2019-04-08] MEDS: LIDOCAINE 5% PATCH TOPICAL SCH (09:56)
[2019-04-08] MEDS: NYSTATIN 100,000 UNIT/ML SUSP 500,000 UNIT/5 ML CUP PO SCH ×4 (09:58→20:49)
[2019-04-08] MEDS: METOPROLOL TARTRATE 25 MG TAB PO SCH ×2 (09:58→20:48)
[2019-04-08] MEDS: TAMSULOSIN 0.4 MG CAP.ER.24H PO SCH (09:59)
[2019-04-08 11:34] LABS: Glucose,Whole Blood 165 mg/dL (75-99)
--- NOTE | 2019-04-08 13:07 | P.PN ---
Subjective Progress Note Date: 04/08/19 Principal diagnosis: Status post CABG, postoperative day #9 On today's evaluation of 04/05/2019, seeing this patient for a follow-up. He is awake and alert on room air oxygen. His chest x-ray showing atelectatic changes especially left lung base. He still has edema in lower extremities bilaterally. He was given a dose of Zaroxolyn and he is also on IV Lasix a 60 mg every 12 hours. The patient has a creatinine of 3.17 which is essentially stable compared to yesterday. The white cell count is at 7.5. He is using incentive spirometer and achieving approximately a liter. He is not having any chest pain. He is in atrial fibrillation for now. His medications include amiodarone 200 mg by mouth twice a day, metoprolol 25 mg by mouth twice a day, aspirin,Eliquis 2.5 mg twice a day and Midrin was also added regarding his lower blood pressure. Insulin is at 34 units subcu along with 12 units with meals and the scale. His sternum stable clean and intact. No other significant events over the past 24 hours. On 04/06/2019, patient remains in the ICU, complaining of generalized aches and pains, sore throat, sore legs, sore buttock, and feels generally weak. Patient is being evaluated by physical therapy, and he is being considered for possible referral to rehab at [facility]. Chest x-ray continues to show mild interstitial edema. Patient is receiving diuretics by thoracic surgery. All labs were reviewed today, BUN is 93 creatinine is 3.02 hemoglobin is 7.5. On 04/07/2019,POD #8 quintuple coronary artery bypass grafting using the left internal mammary artery to the left anterior descending coronary artery, left radial artery from the aorta to the first obtuse marginal coronary artery, reverse greater saphenous vein graft from the aorta to the diagonal coronary artery, reverse greater saphenous vein graft from the aorta to the posterior descending coronary artery, and reverse greater saphenous vein graft from aorta to the posterior lateral branch of the right coronary artery. patient remains in the intensive care unit, sitting up in a recliner in the intensive care unit, in no distress, doing fairly well with incentive spirometry and achieving about 1000 and mild. No more loose stools. Patient remains on oral amiodarone, Lopressor, and Eliquis. Presently in normal sinus rhythm. Labs today showed WBC of 16.5 hemoglobin is 7.5 Lites are normal BUN is 89 and creatinine 2.96. Chest x-ray showed mild congestive heart failure. Reevaluated today on 04/08/2019, patient remains in the ICU, denies any chest pain shortness of breath cough or wheezing, however he is complaining of runny nose, painful buttocks, and diarrhea/loose bowel movements. Continues to do well with incentive spirometry, remains in normal sinus rhythm, remains on Eliquis amiodarone and Lopressor. All labs were reviewed BUN is 84 creatinine 2.56 sodium is 130 potassium 3.5 bicarb is 20 to hemoglobin is 7.1 WBC count is 14.5. Chest x-ray showed improving pulmonary edema/congestive heart failure. Lasix is presently on hold. Objective - Vital Signs Vital signs: Vital Signs Temp 97.3 F L 04/08/19 08:00 Pulse 76 04/08/19 11:26 Resp 16 04/08/19 11:00 BP 115/59 04/08/19 11:00 Pulse Ox 94 L 04/08/19 11:00 Intake & Output 04/07/19 04/08/19 04/08/19 18:59 06:59 18:59 Intake Total 320 Output Total 2175 1735 485 Balance -2175 -1735 -165 Weight 111.4 kg 105.4 kg Intake: Oral 320 Output: Urine 2175 1735 485 Other: Voiding Method Indwelling Catheter Indwelling Catheter # Voids 0 ABP, PAP, CO, CI - Last Documented Arterial Blood Pressure 116/50 Pulmonary Artery Pressure 28/11 Cardiac Output 7.4 Cardiac Index 3.4 - Exam Physical exam revealed a 73-year-old white male in no distress. HEENT: No neck masses no JVD, throat is clear. Lungs: No crackles or rhonchi or wheezes, Chest Wall symmetrical chest expansion. No chest wall tenderness. Incision is clean. Heart: Regular rhythm, no S3 gallop. Abdomen: Obese, soft, nontender, no rebound no guarding. Extremities: No clubbing or cyanosis, trace of edema noted bilaterally. Pulses: Good pulses bilaterally 2+. Skin: Normal skin turgor, no rashes.. Neurologic: Alert and oriented 3, no gross focal neurologic deficit. Psychiatric: Normal mood affect and normal mental status examination. - Labs CBC & Chem 7: 04/08/19 04:46 04/08/19 04:46 Labs: Abnormal Lab Results - Last 24 Hours (Table) 04/07/19 04/08/19 04/08/19 Range/Units 20:58 03:48 04:46 WBC 14.5 H (3.8-10.6) k/uL RBC 2.38 L (4.30-5.90) m/uL Hgb 7.1 L (13.0-17.5) gm/dL Hct 21.6 L (39.0-53.0) % RDW 16.2 H (11.5-15.5) % Sodium (137-145) mmol/L Chloride (98-107) mmol/L BUN (9-20) mg/dL Creatinine (0.66-1.25) mg/dL Glucose (74-99) mg/dL POC Glucose (mg/dL) 152 H 173 H (75-99) mg/dL 04/08/19 04/08/19 04/08/19 Range/Units 04:46 06:44 11:31 WBC (3.8-10.6) k/uL RBC (4.30-5.90) m/uL Hgb (13.0-17.5) gm/dL Hct (39.0-53.0) % RDW (11.5-15.5) % Sodium 130 L (137-145) mmol/L Chloride 95 L (98-107) mmol/L BUN 84 H (9-20) mg/dL Creatinine 2.56 H (0.66-1.25) mg/dL Glucose 133 H (74-99) mg/dL POC Glucose (mg/dL) 137 H 165 H (75-99) mg/dL Assessment and Plan Assessment: Impression: 1 status post CABG for triple vessel coronary artery disease, postoperative day #9 2 history of non-ST elevation myocardial infarction 3 chronic atrial fibrillation 4 hypertension 5 type 2 diabetes 6 obstructive sleep apnea syndrome on home CPAP 7 chronic kidney disease 8 history of ventricular tachycardia and cardiomyopathy previous AICD placement. 9 medical debility. Recommendation: Continue present supportive care measures, continue incentive spirometry, continue ambulation, Continue low-dose aspirin, statins and beta blockers, and amiodarone. Encourage incentive spirometry Continue bronchodilators Increase activity as tolerated Hold diuretics. Continue GI and DVT prophylaxis Continue pain control management Continue to avoid nephrotoxic agents Continue to monitor daily x-rays of the chest and daily labs Discharge planning is presently on hold mostly because of his diarrhea and other can seashell symptoms. We will continue to follow. Time with Patient: Less than 30
--- NOTE | 2019-04-08 14:09 | P.PN ---
Subjective Progress Note Date: 04/08/19 This is a 73-year-old male patient of Dr. Guevara with past medical history for coronary artery disease, paroxysmal atrial fibrillation on eliquis, diabetes mellitus type II insulin requiring with diabetic neuropathy, chronic kidney disease, kidney stones, COPD, obstructive sleep apnea with CPAP, hyperlipidemia, hypertension, and rheumatoid arthritis and cirrhotic arthritis, gout, benign prostatic hypertrophy. His primary care physician is Dr. Guevara he follows with Dr. SANAM Hinds as his copy reader. He had a heart catheterization done in 2005 that showed moderate disease involving the LAD and diagonal was mild involvement patient had some irregular lesion of the circumflex. He was seen at [facility] for chest pain and non-ST elevated SD 2010. At that time, his heart catheterization revealed an acutely occluded right coronary artery, significant disease in the moderate size third obtuse marginal branch with moderate disease in the LAD and left circumflex. Ejection fraction was 3540 percent. He underwent successful stenting of the distal RCA. Later in his room, patient developed ventricular fibrillation and was quickly resuscitated and underwent heart catheterization and underwent angioplasty and stenting of the PLV branch of the right coronary artery. On 09/14/2010, patient underwent a single chamber cardioverter defibrillator implantation. His echoca rdiogram revealed mild pulmonary hypertension, ejection fraction 40% at that time. In 2014 he underwent heart catheterization finding 45% proximal right coronary artery stenosis and significant mid LAD lesion which underwent PTCA and stenting of the mid LAD. Patient's also gives history of a septic knee joint needing washout which was done at [facility] at that time patient developed atrial fibrillation in the postop period. He also had a run of V. tach for which his AICD fired. Ever since that episode of sepsis, patient has had chronic kidney disease. Regarding his diabetes, he follows with Dr. Yoanna Mccormick. He is currently on Trulicity 1.5mg weekly, Lantus 56 units in the morning and recently changed to 18 units of NovoLog with meals. His last hemoglobin A1c was 7.4 in December at the [place] clinic. Regarding rheumatoid arthritis and psoriatic arthritis, patient follows with Dr. Shelton. In the past he has been on methotrexate, Enbrel and Humira. He was recently on Ilaris but this was stopped when he started having cardiac problems as there is concern for arrhythmia. He contacted his body work auto trimmer and she had recommended stopping it. The patient have follow-up in the cardiology office in December of this year and underwent a Lexiscan stress test that did not demonstrate any ischemia. Over the past 3-4 weeks she has had intermittent substernal chest pain with radiation to his arms. He was recommended for heart catheterization which was completed yesterday that found proximal LAD stenosis 60%, mid LAD stenosis 30%, circumflex stenosis 90% and RCA stenosis 60. Cardiothoracic surgery was consulted for recommendations regarding CABG versus stenting. Carotid ultrasound revealed mild plaque bilateral bifurcations but no significant stenosis. Chest x-ray reveals no acute cardiopulmonary process. Underlying COPD. patient has been evaluated by cardiothoracic surgery. Plan for tomorrow is a repeat heart catheterization to further evaluate LAD. 03/26: Patient underwent heart catheterization today with Dr. SANAM Hinds finding significant lesion in the proximal LAD and area of 2.6 mm2 also within the left main and heavy circumferential desiccation lesion in the area of 3.2 mm2. Both were deemed significant and requires bypass surgery. The patient is seen today while in the recovery area. He denies having any chest pain or shortness of breath at this time. Blood sugars will need to be well-controlled and we will make arrangements for Levemir to be 30 units in the morning and 40 at bedtime. 03/27: The patient complains of nasal congestion since he had his procedure yesterday. We will add Flonase. Regarding blood sugars nighttime blood sugar remains quite elevated and we will make additional changes to his insulins by adding NovoLog scheduled 3 units with each meal and increase nighttime Levemir to 45 units. He is scheduled for open heart on Saturday. 03/28: Patient is resting comfortably in bed without any acute distress. Patient has no complaints at this time. Patient did not receive his Levemir last night due to his blood sugar being 112. Patient's blood sugar was elevated in 150s this morning due to missing the dose of Levemir. Patient is scheduled for open heart surgery on Saturday. 03/29: Patient is sitting up in bed with at the bedside. Patient is in no acute distress. Patient has no complaints or concerns at this time. He slept well last night. Patient was given his Levemir last night his blood sugar this morning was 120. Patient is waiting to have open heart surgery on Saturday. Questions were answered. 03/30: Patient will be going for open heart surgery today we will be back in ICU on the respirator and insulin drip. 03/31: Patient is off mechanical ventilation sitting in his chair less pain and discomfort still have chest tube complaining of mild chest pain from his surgery but no other major complaint. 04/01: Patient is doing much better most of his tube out's 1 getting catheter was removed, blood sugar is much better pulse rate is running in the 60s and 70s, patient is hemodynamically stable no transfusion done last 24 hours. 04/02: Blood sugars are stable but he is still on insulin drip which we will transition to Levemir 40 units this morning, discontinue the insulin drip, start NovoLog 10 units with meals along with scale every 4 hours. Patient is complaining of back pain and neck pain. He has been tried on Lidoderm cream without improvement and now lidocaine patch. We will add in baclofen as needed. All chest tubes and Cordis out today. Uribe catheter remained for retention and patient has been started back on Flomax. Consultation In place for Dr. Haji. Patient encouraged to increase ambulation. 04/03: Patient remains in the intensive care unit. monitor technician is A. fib with controlled rate. Repeat echocardiogram has been ordered by cardiology. Back and neck pain appeared to be improved from yesterday. He has had marginal urine output and has received fluid boluses. Due to hypotension, midodrine added, Norvasc discontinued. IV Lasix 60 mg 1 dose was ordered for today. Uribe remains in place and patient continued on Flomax. Consult was added for nephrology regarding acute kidney injury. Repeat blood work today reveals white count of 15.9, hemoglobin 8.4, platelet count 127. BUN 68 and creatinine 3.15. Blood sugars are running between 178 and 211. We are increasing Levemir to 65 units which will start tomorrow and increasing NovoLog with meals to 22 units 3 times daily. Patient is continued on NovoLog scale. Dr. Haji consult is esha yang as he is not available. 04/04: Patient remains in intensive care unit, his sitting in the chair he appears a bit weaker today his hemoglobin is is down to 7.6, he had an episode of low sugar is not eating much adjusted his insulin regimen to Levemir 45 units in the morning as well as decreasing his Humalog to 12 units plus scale with meals. Patient continues to be somewhat short of breath, he continues to have shallow breathing, he is using incentive spirometer on and off, he is generally weak he will require subacute rehabilitation versus inpatient rehabilitation. 04/05: Patient is sitting up in a chair his feeling fatigued today he is having more diarrhea, we will check his stool for C. diff, he has episode of hyperglycemia yesterday subsequently we'll decrease his Levemir to 34 units in the morning along with 50% of his Humalog if his not eating greater than 50% of his meal and to hold if is less than 100, patient suffered from Odynophagia and he does have significant thrush we will start him on nystatin swish and swallow 5 mL before each meal and at bedtime, this was discussed with the nursing staff at the bedside. 04/06: C. difficile toxin came back negative. He received 1 dose of Imodium yesterday. Repeat lab work this morning reveals WBC 12.7, hemoglobin 7.5 plat elet count 197. Sodium 133, potassium 3.7, chloride 101, CO2 18, BUN 93 and creatinine 3.02. Blood sugars running between 97 and 137 following adjustments to insulins. Patient has been afebrile, heart rate 75, blood pressure 121/56, pulse ox 97%. monitor technician atrial fibrillation with atrial flutter. He is currently on amiodarone oral, Lopressor and eliquis. Patient is reaching 750 ml on incentive spirometry. He is eating an approximate 75% of most of his meals. Yesterday, patient was started on Lasix 60 mg IV every 12 hours and Zaroxolyn 5 mg daily. Weight is down 3-1/2 kg from yesterday. Uribe catheter is in place for retention. He has been seen by Dr. Haji and appears to be a good candidate for inpatient rehab. Repeat chest x-ray reveals mild improved pulmonary vascular congestion with stable small left pleural effusion, trace right pleural effusion and bibasilar airspace disease. Patient states that he did not sleep well last night. He is also complaining of lower abdominal pain and states he did not pass any gas this morning. Uribe cath remains in place. 04/07: Patient remains in intensive care unit. He states he is feeling better today. His appetite is a little better. Has decreased lower extremity edema. He complains of dry mouth. He is passing gas. He has been afebrile, heart rate 88, blood pressure 114/57, pulse ox 95% on room air. Repeat lab work reveals a white count of 16.5, hemoglobin 7.5, platelet count 218. BUN 89 creatinine 2.96, sodium 133, potassium 3.9, chloride 96, CO2 24. Blood sugars running between 80 and 114. Magnesium 2.5. Uribe catheter remains in place. He is currently on Lasix 40 mg IV every 12 hours. 04/08: Patient remains in intensive care unit. Lasix and Zaroxolyn has been discontinued. Patient had sudden onset of diarrhea return with abdominal cramping. Fecal management system has been placed. Hemoglobin has dropped some 0.1. Stool for occult blood is positive. Blood pressure is on the lower side 91/54-115/59. Pulse ox 94% on room air. Patient was in atrial fibrillation yesterday and currently in a sinus rhythm. Patient is complaining of soreness in his buttocks from sitting. Review of systems: CONSTITUTIONAL: Overweight no acute respiratory distress, appears fatigued, denies fever, denies chills. EYES: No icterus sclerae, no conjunctivitis. EARS, NOSE, MOUTH, THROAT, and FACE: No blurred vision, no sore throat. RESPIRATORY: Mild shortness of breath no cough wheezes. CARDIOVASCULAR: Positive chest pain and angina with mild shortness of breath positive PND and orthopnea. GASTROINTESTINAL: Reports Abd pain, Nausea or vomiting, reports Diarrhea or constipation, No GI Bleed, no distention or masses. GENITOURINARY: Negative for Hematuria or UTI, no kidney stones. Reports retention INTEGUMENT/BREAST: Negative for any muscular injury with mild osteoarthritis. HEMATOLOGIC/LYMPHATIC: Negative for bleed or purpura. MUSCULOSKELTAL: Multiple muscle and tendon involvement generalized arthralgia and myalgia. Reports neck pain. Reports lumbar back pain NEURLOGICAL: No LOC, Sz or syncope, blurred vision dizziness or abnormality. BEHAVIORAL/PSYCH: Negative. ENDOCRINE: Negative. Objective - Vital Signs Vital signs: Vital Signs Temp 98.2 F 04/08/19 04:00 Pulse 82 04/08/19 08:16 Resp 20 04/08/19 07:00 BP 103/55 04/08/19 07:00 Pulse Ox 95 04/08/19 07:00 Intake & Output 04/07/19 04/08/19 04/08/19 18:59 06:59 18:59 Output Total 5 1735 55 Balance -2174 -5 -55 Weight 111.4 kg 105.4 kg Output: Urine 21745 55 Other: Voiding Method Indwelling Catheter Indwelling Catheter ABP, PAP, CO, CI - Last Documented Arterial Blood Pressure 116/50 Pulmonary Artery Pressure 28/11 Cardiac Output 7.4 Cardiac Index 3.4 - Exam General Appearance: Alert, cooperative, no distress, appears stated age. Patient is sitting up in a recliner. Neck HEENT: Supple, no lymphadenopathy, no thyroid enlargement, no carotid bruits. Lungs: Decrease breath some bilateral. Chest Wall: Incision from his surgery with dressing in place Heart: regular rate and rhythm, S1, S2 normal, no murmur, rub or gallop. Back: Symmetric, no curvature, ROM normal, no CVA tenderness. Abdomen: Soft, non-tender, bowel sounds active all four quadrants, no masses, no organomegaly. Extremities: Trace edema. Pulses: 2+ and symmetric. Skin: Skin color, texture, tugor normal, no rashes or lesions. Neurologic: Alert oriented x3 cranial nerves II through XII intact, no motor deficit, no abnormal balance or gait. Generalized weakness noted - Labs CBC & Chem 7: 04/08/19 04:46 04/08/19 04:46 Labs: Abnormal Lab Results - Last 24 Hours (Table) 04/07/19 04/07/19 04/08/19 Range/Units 11:40 20:58 03:48 WBC (3.8-10.6) k/uL RBC (4.30-5.90) m/uL Hgb (13.0-17.5) gm/dL Hct (39.0-53.0) % RDW (11.5-15.5) % Sodium (137-145) mmol/L Chloride (98-107) mmol/L BUN (9-20) mg/dL Creatinine (0.66-1.25) mg/dL Glucose (74-99) mg/dL POC Glucose (mg/dL) 114 H 152 H 173 H (75-99) mg/dL 04/08/19 04/08/19 04/08/19 Range/Units 04:46 04:46 06:44 WBC 14.5 H (3.8-10.6) k/uL RBC 2.38 L (4.30-5.90) m/uL Hgb 7.1 L (13.0-17.5) gm/dL Hct 21.6 L (39.0-53.0) % RDW 16.2 H (11.5-15.5) % Sodium 130 L (137-145) mmol/L Chloride 95 L (98-107) mmol/L BUN 84 H (9-20) mg/dL Creatinine 2.56 H (0.66-1.25) mg/dL Glucose 133 H (74-99) mg/dL POC Glucose (mg/dL) 137 H (75-99) mg/dL Assessment and Plan Plan: 1. Triple-vessel coronary artery disease: Post 5 vessel bypass surgery continue aggressive pulmonary toileting. Lasix was decreased to 40 mg IV every 12 hours. 2. History of non-ST elevated myocardial infarction, coronary artery disease a nd multiple stents. Just had 5 vessel bypass surgery and doing well in his recovery so far 3. Diabetes mellitus type 2 with end organ damage. Continue Levemir to 34 units units in the morning, increase NovoLog scheduled 12 units with meals and continue NovoLog scale, also hold Humalog for BGM was in 100. 4. Chronic atrial fibrillation. Continue oral amiodarone, Lopressor and eliquis. 5. Hypertension. Continue Lopressor 6. Hyperlipidemia. Continue atorvastatin 40 mg daily 7. Chronic kidney disease. Monitor renal function and avoid nephrotoxic agents. 8. Obstructive sleep apnea with home CPAP. 9. Diarrhea. Clostridium difficile negative. 10. History of ventricular tachycardia and cardiomyopathy status post AICD, stable 11. Gastroesophageal reflux disease. Continue Protonix 12. Acute kidney injury with chronic kidney disease stage 3. Avoid nephrotoxic agents. 13. Benign prostatic hypertrophy. Continue Flomax. 14. Thrush. Start the patient on nystatin swish and swallow 5 mL before each meal and at bedtime. 15. Medical debility. Physical therapy evaluation likely will require subacute rehabilitation or inpatient rehab. 16. Postoperative atrial fibrillation, expected. 17. Postoperative anemia, expected. Discharge plan: Most likely inpatient rehab at [facility] Impression and plan of care have been directed as dictated by the signing physician. Leigh Bailey nurse practitioner acting as scribe for signing physician.
[2019-04-08 16:53] LABS: Glucose,Whole Blood 179 mg/dL (75-99)
[2019-04-08 20:47] LABS: Glucose,Whole Blood 201 mg/dL (75-99)
[2019-04-09 02:20] LABS: Glucose,Whole Blood 128 mg/dL (75-99)
[2019-04-09] MEDS: INSULIN ASPART (NovoLOG) 100 UNIT/ML VIAL SQ SCH ×8 (02:20→21:49)
[2019-04-09 05:09] LABS: Calcium 8.6 mg/dL (8.4-10.2); Potassium 3.6 mmol/L (3.5-5.1)
[2019-04-09 05:12] LABS: Anisocytosis Slight; HCT 21.3 % (39.0-53.0); Hypochromasia Slight; MCH 29.5 pg (25.0-35.0); MCHC 32.6 g/dL (31.0-37.0); MCV 90.6 fL (80.0-100.0); Mean Platelet Volume 5.9; Platelet Count 265 k/uL (150-450); Poikilocytosis Slight; RBC 2.35 m/uL (4.30-5.90); WBC 12.3 k/uL (3.8-10.6)
[2019-04-09] MEDS ORDERED: Potassium Replacement Protocol 1 EACH MISC MISCELLANE PRN (05:18)
[2019-04-09 05:27] LABS: HGB 6.9 gm/dL (13.0-17.5)
[2019-04-09] MEDS: INSULIN DETEMIR (LEVEMIR) 100 UNIT/ML SYR SQ SCH (06:46)
[2019-04-09 06:47] LABS: Glucose,Whole Blood 153 mg/dL (75-99)
[2019-04-09] MEDS: PANTOPRAZOLE 40 MG TABLET PO SCH (06:47)
[2019-04-09] MEDS: MIDODRINE 5 MG TAB PO SCH ×3 (06:47→16:44)
[2019-04-09] MEDS: POTASSIUM CHLORIDE ER 20 MEQ TAB.ER PO SCH ×2 (06:47→08:46)
--- NOTE | 2019-04-09 07:24 | XR ---
EXAMINATION TYPE: XR chest 1V portable DATE OF EXAM: 04/09/2019 HISTORY: Shortness of breath. COMPARISON: 04/08/2019 TECHNIQUE: Single view of the chest is submitted. FINDINGS: Demonstrated are scattered senescent parenchymal change. Pulmonary venous congestion with basilar patchy densities persist. Overall no significant interval ch christy. The heart is stable. Hilar and mediastinal structures are within normal limits. Degenerative changes are seen of the dorsal spine. IMPRESSION: 1. Pulmonary venous congestion with basilar patchy densities persist. Overall no significant interva l change.
[2019-04-09] MEDS: IPRATROPIUM-ALBUTEROL 3 ML NEB INHALATION SCH ×4 (07:25→19:45)
--- NOTE | 2019-04-09 07:30 | P.PN ---
Subjective Progress Note Date: 04/09/19 Principal diagnosis: Severe CAD and status post CABG This is a pleasant 73-year-old gentleman who sees Dr. SANAM Hinds in the office on regular basis with a past medical history significant for diabetes, hypertension, dyslipidemia, long-standing persistent atrial fibrillation on oral anticoagulation, as well as chronic kidney disease, underwent elective coronary artery bypass grafting, week ago. The recovery was slow mainly because of renal failure. On follow-up with the patient today, April [id number], overall the patient is doing better clinically. The creatinine is trending down. The pressure continues to be marginal. The hemoglobin is marginal at 6.9. I would recommend giving the patient 20 minutes of packed RBC today. The creatinine has been trending down as well. Objective - Vital Signs Vital signs: Vital Signs Temp 98.0 F 04/09/19 04:00 Pulse 86 04/09/19 07:26 Resp 16 04/09/19 07:00 BP 111/56 04/09/19 07:00 Pulse Ox 96 04/09/19 07:26 Intake & Output 04/08/19 04/09/19 04/09/19 18:59 06:59 18:59 Intake Total 320 570 Output Total 820 1560 150 Balance -500 -990 -150 Weight 108.2 kg Intake: Oral 320 570 Output: Urine 820 1360 150 Stool 200 Other: Voiding Method Indwelling Catheter Indwelling Catheter # Voids 0 ABP, PAP, CO, CI - Last Documented Arterial Blood Pressure 116/50 Pulmonary Artery Pressure 28/11 Cardiac Output 7.4 Cardiac Index 3.4 - Constitutional General appearance: Present: no acute distress - Respiratory Respiratory: bilateral: CTA - Cardiovascular Rhythm: regular Heart sounds: normal: S1, S2 - Labs CBC & Chem 7: 04/09/19 04:19 04/09/19 04:19 Labs: Abnormal Lab Results - Last 24 Hours (Table) 04/08/19 04/08/19 04/08/19 Range/Units 11:31 16:52 20:45 WBC (3.8-10.6) k/uL RBC (4.30-5.90) m/uL Hgb (13.0-17.5) gm/dL Hct (39.0-53.0) % RDW (11.5-15.5) % Sodium (137-145) mmol/L Chloride (98-107) mmol/L BUN (9-20) mg/dL Creatinine (0.66-1.25) mg/dL Glucose (74-99) mg/dL POC Glucose (mg/dL) 165 H 179 H 201 H (75-99) mg/dL 04/09/19 04/09/19 04/09/19 Range/Units 02:18 04:19 04:19 WBC 12.3 H (3.8-10.6) k/uL RBC 2.35 L (4.30-5.90) m/uL Hgb 6.9 L* (13.0-17.5) gm/dL Hct 21.3 L (39.0-53.0) % RDW 16.0 H (11.5-15.5) % Sodium 131 L (137-145) mmol/L Chloride 97 L (98-107) mmol/L BUN 76 H (9-20) mg/dL Creatinine 2.28 H (0.66-1.25) mg/dL Glucose 123 H (74-99) mg/dL POC Glucose (mg/dL) 128 H (75-99) mg/dL 04/09/19 Range/Units 06:45 WBC (3.8-10.6) k/uL RBC (4.30-5.90) m/uL Hgb (13.0-17.5) gm/dL Hct (39.0-53.0) % RDW (11.5-15.5) % Sodium (137-145) mmol/L Chloride (98-107) mmol/L BUN (9-20) mg/dL Creatinine (0.66-1.25) mg/dL Glucose (74-99) mg/dL POC Glucose (mg/dL) 153 H (75-99) mg/dL Microbiology - Last 24 Hours (Table) 04/08/19 08:00 Stool Culture - Preliminary Stool Assessment and Plan Assessment: Assessment #1 severe CAD and status post CABG #2 acute on chronic renal failure #3 long-standing persistent atrial fibrillation #4 hypotension which has resolved #5 multiple comorbid conditions Plan #1 continue the current medical regimen #2 follow-up with the patient #3 patient is possibly going into an extended-care facility today
[2019-04-09] MEDS: ACETAMINOPHEN TAB 500 MG TAB PO PRN ×2 (08:42→19:44)
[2019-04-09] MEDS: ALLOPURINOL 100 MG TAB PO SCH ×2 (08:46→19:45)
[2019-04-09] MEDS: ASPIRIN 81 MG PO SCH (08:47)
[2019-04-09] MEDS: ATORVASTATIN 40 MG TAB PO SCH (08:47)
[2019-04-09] MEDS: AMIODARONE 200 MG TAB PO SCH ×2 (08:47→19:45)
[2019-04-09] MEDS: APIXABAN 2.5 MG TABLET PO SCH ×2 (08:47→19:45)
[2019-04-09] MEDS: TAMSULOSIN 0.4 MG CAP.ER.24H PO SCH (08:47)
[2019-04-09] MEDS: METOPROLOL TARTRATE 25 MG TAB PO SCH ×2 (08:47→19:44)
[2019-04-09] MEDS: LIDOCAINE 5% PATCH TOPICAL SCH (08:47)
[2019-04-09] MEDS: NYSTATIN 100,000 UNIT/ML SUSP 500,000 UNIT/5 ML CUP PO SCH (08:48)
--- NOTE | 2019-04-09 10:58 | P.GSCN ---
History of Present Illness Consult date: 04/09/19 Reason for Consult: Urinary retention History of present illness: The patient is a 73-year-old male with multiple medical problems who developed increasing angina and underwent 4 vessel CABG on 03/30. His catheter was removed on 04/01 and reinserted later that day and drained 480 mL. He had been taking Flomax prior to admission and this was continued. His catheter was removed yesterday and he felt the urge to void but was unable to void and a catheter was reinserted and drained 550 mL. The catheter has remained in place since then. The patient has no previous history of urinary retention. He says that he had some problems with a slow urinary flow and incomplete bladder emptying approximately 1 year ago following surgery and was placed on Flomax. He says that since that time his urine flow has improved. Prior to being admitted he said he was voiding every hour during the day but only twice at night. He complained of urgency but denied any incontinence. He denied sensations of incomplete bladder emptying prior to being admitted. He has no history of urinary incontinence or urinary tract infection. He has recently had difficulty with diarrhea and had a rectal tube placed but this has improved and the plan is for this to be removed later today. Review of Systems - Constitutional Reports fatigue - Cardiovascular Reports edema (Patient says that he has chronic leg lymphedema which has been treated with a mechanical compression device prior to admission), Reports shortness of breath - Gastrointestinal Reports diarrhea, Denies abdominal pain - Genitourinary Reports as per HPI Past Medical History Past Medical History: Atrial Fibrillation, Asthma, Coronary Artery Disease (CAD), Chest Pain / Angina, Heart Failure, COPD, Diabetes Mellitus, GERD/Reflux, Hyperlipidemia, Hypertension, Myocardial Infarction ([place]), Osteoarthritis (OA), Prostate Disorder, Pulmonary Embolus ([place]), Renal Disease, Skin Disorder, Sleep Apnea/CPAP/BIPAP Additional Past Medical History / Comment(s): SUDDEN 2010-REVIVED AND DEFIBRILLATOR. GOUT. , PSORIASIS, MEDTRONIC AICD., STROKE BEHIND LT EYE. KIDNEY STONES. , STAGE 3 KIDNEY DISEASE., ANEMIA, BPH, [place] x 4 , "Blood clot outside of my heart", BELLS PALSY, NEUROPATHY, STATES UNSTEADY GAIT- USES CANE PRN., USES C-PAP MACHINE, PSORIATIC ARTHRITIS, STATES EPISODE OF A-FIB AFTER K NEE SURGERY., STATES HE DROPPED WRENCH ON FOOT -HAS RED SPOT AND SOME PAIN., HX V-TACH., SEE CARDIOLOGY H & P. Last Myocardial Infarction Date:: 12/2014 History of Any Multi-Drug Resistant Organisms: None Reported Past Surgical History: Adenoidectomy, AICD, Heart Catheterization, Heart Catheterization With Stent, Orthopedic Surgery, Tonsillectomy Additional Past Surgical History / Comment(s): BRIAN CARPAL TUNNEL, LT ROTATOR CUFF. 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 He denies any medical marijuana, marijuana, street drug or alcohol use. 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 He is a . Patient was at home with his . He uses a cane as needed. Past Drug Use History: None Reported - Past Family History Father Family Medical History: Coronary Artery Disease (CAD) Additional Family Medical History / Comment(s): TRIPLE BYPASS Mother Family Medical History: Cancer, Hypertension, Pulmonary Embolus Additional Family Medical History / Comment(s): ENDOMETRIAL CANCER Daughter(s) Family Medical History: Cancer, Pulmonary Embolus Medications and Allergies Home Medications Medication Instructions Recorded Confirmed Type Calcium Carbonate/Vitamin D3 1 tab PO BID 12/09/14 03/24/19 History [Calcium 600 + Vit D Tablet] Insulin Glargine,Hum.rec.anlog 56 unit SQ QAM 12/09/14 03/24/19 History [Lantus Solostar] Metoprolol Tartrate [Lopressor] 100 mg PO BID 12/09/14 03/24/19 History Omeprazole [PriLOSEC] 20 mg PO DAILY 12/09/14 03/24/19 History Furosemide [Lasix] 40 mg PO BID 02/06/16 03/24/19 History Isosorbide Mononitrate ER [Imdur] 30 mg PO BID 02/06/16 03/24/19 History Atorvastatin [Lipitor] 40 mg PO HS 03/14/17 03/24/19 History Hydrochlorothiazide 12.5 mg PO DAILY 03/14/17 03/24/19 History Insulin Aspart [NovoLOG Flexpen] 18 units SQ AC-TID 03/14/17 03/24/19 History Losartan [Cozaar] 50 mg PO DAILY 03/14/17 03/24/19 History Allopurinol [Zyloprim] 100 mg PO BID 03/20/19 03/24/19 History Apixaban [Eliquis] 2.5 mg PO BID 03/20/19 03/24/19 History Colchicine 0.6 mg PO DAILY 03/20/19 03/24/19 History Dulaglutide [Trulicity] 1.5 mg SQ WEEKLY 03/20/19 03/24/19 History Magnesium 400 mg PO DAILY 03/20/19 03/24/19 History Metoprolol Tartrate [Lopressor] 50 mg PO DAILY@1200 03/20/19 03/24/19 History Nitroglycerin Sl Tabs [Nitrostat] 0.4 mg SUBLINGUAL Q5M PRN 03/20/19 03/24/19 History Tamsulosin HCl [Flomax] 0.4 mg PO DAILY 03/20/19 03/24/19 History Turmeric Root Extract [Turmeric] 1,000 mg PO DAILY 03/20/19 03/24/19 History Allergies Allergy/AdvReac Type Severity Reaction Status Date / Time gabapentin AdvReac Unknown DREAMS, Verified 03/20/19 09:54 PERSONALITY CHANGES- ANGER Sulfa (Sulfonamide AdvReac Rapid Verified 03/20/19 09:53 Antibiotics) Heart Rate/Dyspnea Surgical - Exam Vital Signs Temp Pulse Resp BP Pulse Ox 98.1 F 96 16 136/69 96 03/24/19 07:15 03/24/19 07:15 03/24/19 07:15 03/24/19 07:15 03/24/19 07:15 - General well developed, well nourished, no distress, obese - ENT no hearing loss - Neck no masses, no lymphadectomy - Respiratory normal respiratory effort - Abdomen Abdomen: soft, non tender, no organomegaly Hernia: none - Genitourinary normal penis with no external lesions, other (Uribe catheter is in place and is draining clear urine. ) Pitting edema in the legs extending up into the thigh region. Results - Labs 11/14/19 04:19 04/09/19 04:19 Abnormal Lab Results - Last 24 Hours (Table) 04/08/19 04/08/19 04/08/19 Range/Units 11:31 16:52 20:45 WBC (3.8-10.6) k/uL RBC (4.30-5.90) m/uL Hgb (13.0-17.5) gm/dL Hct (39.0-53.0) % RDW (11.5-15.5) % Sodium (137-145) mmol/L Chloride (98-107) mmol/L BUN (9-20) mg/dL Creatinine (0.66-1.25) mg/dL Glucose (74-99) mg/dL POC Glucose (mg/dL) 165 H 179 H 201 H (75-99) mg/dL Crossmatch 04/09/19 04/09/19 04/09/19 Range/Units 02:18 04:19 04:19 WBC 12.3 H (3.8-10.6) k/uL RBC 2.35 L (4.30-5.90) m/uL Hgb 6.9 L* (13.0-17.5) gm/dL Hct 21.3 L (39.0-53.0) % RDW 16.0 H (11.5-15.5) % Sodium 131 L (137-145) mmol/L Chloride 97 L (98-107) mmol/L BUN 76 H (9-20) mg/dL Creatinine 2.28 H (0.66-1.25) mg/dL Glucose 123 H (74-99) mg/dL POC Glucose (mg/dL) 128 H (75-99) mg/dL Crossmatch 04/09/19 04/09/19 Range/Units 06:45 07:40 WBC (3.8-10.6) k/uL RBC (4.30-5.90) m/uL Hgb (13.0-17.5) gm/dL Hct (39.0-53.0) % RDW (11.5-15.5) % Sodium (137-145) mmol/L Chloride (98-107) mmol/L BUN (9-20) mg/dL Creatinine (0.66-1.25) mg/dL Glucose (74-99) mg/dL POC Glucose (mg/dL) 153 H (75-99) mg/dL Crossmatch See Detail Microbiology - Last 24 Hours (Table) 04/08/19 08:00 Stool Culture - Preliminary Stool Diabetes panel 04/09/19 Range/Units 04:19 Sodium 131 L (137-145) mmol/L Potassium 3.6 (3.5-5.1) mmol/L Chloride 97 L (98-107) mmol/L Carbon Dioxide 24 (22-30) mmol/L BUN 76 H (9-20) mg/dL Creatinine 2.28 H (0.66-1.25) mg/dL Glucose 123 H (74-99) mg/dL Calcium 8.6 (8.4-10.2) mg/dL Calcium panel 04/09/19 Range/Units 04:19 Calcium 8.6 (8.4-10.2) mg/dL Pituitary panel 04/09/19 Range/Units 04:19 Sodium 131 L (137-145) mmol/L Potassium 3.6 (3.5-5.1) mmol/L Chloride 97 L (98-107) mmol/L Carbon Dioxide 24 (22-30) mmol/L BUN 76 H (9-20) mg/dL Creatinine 2.28 H (0.66-1.25) mg/dL Glucose 123 H (74-99) mg/dL Calcium 8.6 (8.4-10.2) mg/dL Adrenal panel 04/09/19 Range/Units 04:19 Sodium 131 L (137-145) mmol/L Potassium 3.6 (3.5-5.1) mmol/L Chloride 97 L (98-107) mmol/L Carbon Dioxide 24 (22-30) mmol/L BUN 76 H (9-20) mg/dL Creatinine 2.28 H (0.66-1.25) mg/dL Glucose 123 H (74-99) mg/dL Calcium 8.6 (8.4-10.2) mg/dL Assessment and Plan (1) Postoperative urinary retention Narrative/Plan: The patient did have symptoms of bladder outflow obstruction prior to his admission. His incomplete bladder emptying may be in part related to his general debilitation following his recent surgery and underlying bladder outflow obstruction. I'm hesitant to increase the dose of the Flomax due to the patient's chronic edema. He will have another voiding trial today if he remains unable to void he will need to be discharged with a catheter in place. He will be going to a rehab facility and could have another voiding trial in 1 week. I do not feel the patient would be able to perform intermittent catheterization. Current Visit: Yes Status: Acute Code(s): N99.89 - OTH POSTPROCEDURAL COMPLICATIONS AND DISORDERS OF SYS; R33.8 - OTHER RETENTION OF URINE SNOMED Code(s): 807558441
[2019-04-09 11:31] VITALS: BMI 37.3
[2019-04-09] MEDS ORDERED: FUROSEMIDE 10 MG/ML 4 ML VIAL IV ONE (12:00)
[2019-04-09 12:04] LABS: Glucose,Whole Blood 180 mg/dL (75-99)
[2019-04-09 12:21] LABS: HCT 25.1 % (39.0-53.0); HGB 8.2 gm/dL (13.0-17.5); Hypochromasia Slight; MCH 29.6 pg (25.0-35.0); MCHC 32.8 g/dL (31.0-37.0); MCV 90.2 fL (80.0-100.0); Mean Platelet Volume 6.6; Platelet Count 281 k/uL (150-450); Poikilocytosis Slight; RBC 2.78 m/uL (4.30-5.90); RDW 15.9 % (11.5-15.5)
[2019-04-09 12:35] LABS: Calcium 8.8 mg/dL (8.4-10.2); Potassium 4.1 mmol/L (3.5-5.1)
--- NOTE | 2019-04-09 12:53 | P.PN ---
Subjective Progress Note Date: 04/09/19 Principal diagnosis: Triple-vessel coronary artery disease. 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 POD #10 quintuple coronary artery bypass grafting using the left internal mammary artery to the left anterior descending coronary artery, left radial artery from the aorta to the first obtuse marginal coronary artery, reverse greater saphenous vein graft from the aorta to the diagonal coronary artery, reverse greater saphenous vein graft from the aorta to the posterior descending coronary artery, and reverse greater saphenous vein graft from aorta to the posterior lateral branch of the right coronary artery. Bilateral pulmonary vein isolation using the bipolar radiofrequency energy by Atricure, exclusion of the left atrial appendage using a 35 mm Atriclip, endoscopic left radial artery harvest, endoscopic harvesting of the left greater saphenous vein from the groin to above the ankle level and right greater saphenous vein from the groin to below the knee level, intraoperative graft flow measurements using the Medistim system, intraoperative transesophageal echocardiogram and epi-aortic scanning. Postoperative acute blood loss anemia, expected outcome due to hemodilution and cardiopulmonary bypass. Postoperative thrombocytopenia, expected outcome due to his preoperative thrombocytopenia and hemodilution. Postoperative controlled atrial fibrillation, expected due to his history of paroxysmal atrial fibrillation and known potential outcome from cardiac surgery Postoperative acute on chronic kidney disease, unexpected but potential outcome due to his baseline chronic kidney disease along with borderline hypotension Hypotension, expected, known possible outcome of surgery Diarrhea, unexpected, C-diff negative The patient is currently sitting up in a recliner in the intensive care unit in no acute distress. Denies chest pain, denies shortness of breath. Patient actively using incentive spirometry without reminders. Hemaglobin this morning 6.9, hemodynamically stable. Currently in normal sinus rhythm, remains on oral amiodarone and Lopressor as well as Eliquis. Diarrhea had stopped yesterday after Immodium given, patient had another 200 cc diarrhea this morning. No other new concerns. Objective - Vital Signs Vital signs: Vital Signs Temp 98.4 F 04/09/19 12:00 Pulse 83 04/09/19 12:00 Resp 19 04/09/19 12:00 BP 113/53 04/09/19 12:00 Pulse Ox 96 04/09/19 12:00 Intake & Output 04/08/19 04/09/19 04/09/19 18:59 06:59 18:59 Intake Total 320 570 322 Output Total 820 1560 880 Balance -500 -990 -558 Weight 108.2 kg 108.2 kg Intake: Oral 320 570 12 Blood Product 310 Rc As-1 Unit 310 [id number] Output: Urine 820 1360 680 Stool 200 200 Other: Voiding Method Indwelling Catheter Indwelling Catheter # Voids 0 0 ABP, PAP, CO, CI - Last Documented Arterial Blood Pressure 116/50 Pulmonary Artery Pressure 28/11 Cardiac Output 7.4 Cardiac Index 3.4 - Constitutional General appearance: Present: cooperative, no acute distress, obese - Respiratory Details: Lungs sounds diminished bilaterally. Respirations even, nonlabored. Currently on room air with oxygen saturation 96%. Able to achieve 1000 mL on his incentive spirometry. Strong, non-productive cough. - Cardiovascular Details: S1, S2 present. Regular rate and rhythm, normal sinus rhythm on telemetry. Sternum stable. Palpable peripheral pulses bilaterally. Trace lower extremity edema present, improving. No calf pain or tenderness noted. Heart hugger in place with patient demonstrating appropriate use with encouragement, antiembolism stockings, SCDs present. - Gastrointestinal Gastrointestinal Comment(s): Abdomen soft, nontender, nondistended, obese. Active bowel sounds present 4 quadrants. Tolerating minimal diet. Positive loose yellowish brown stool starting last night, fecal management system in place. - Genitourinary Genitourinary Comment(s): Pozo discontinued this morning, urine output overnight 100-150 mL/hr, 2380 mL in the last 24 hours. - Integumentary Integumentary Comment(s): Skin is warm and dry with evidence of good perfusion. Anterior chest incision well approximated. 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 Bilateral lower extremity EVH sites well approximated. - Neurologic Neurologic: Present: CNII-XII intact - Musculoskeletal Musculoskeletal: Present: gait normal, strength equal bilaterally - Psychiatric Psychiatric: Present: A&O x's 3, appropriate affect, intact judgment & insight - Allied health notes Allied health notes reviewed: nursing - Labs CBC & Chem 7: 04/09/19 12:06 04/09/19 12:06 Labs: Abnormal Lab Results - Last 24 Hours (Table) 04/08/19 04/08/19 04/09/19 Range/Units 16:52 20:45 02:18 WBC (3.8-10.6) k/uL RBC (4.30-5.90) m/uL Hgb (13.0-17.5) gm/dL Hct (39.0-53.0) % RDW (11.5-15.5) % Sodium (137-145) mmol/L Chloride (98-107) mmol/L BUN (9-20) mg/dL Creatinine (0.66-1.25) mg/dL Glucose (74-99) mg/dL POC Glucose (mg/dL) 179 H 201 H 128 H (75-99) mg/dL Crossmatch 04/09/19 04/09/19 04/09/19 Range/Units 04:19 04:19 06:45 WBC 12.3 H (3.8-10.6) k/uL RBC 2.35 L (4.30-5.90) m/uL Hgb 6.9 L* (13.0-17.5) gm/dL Hct 21.3 L (39.0-53.0) % RDW 16.0 H (11.5-15.5) % Sodium 131 L (137-145) mmol/L Chloride 97 L (98-107) mmol/L BUN 76 H (9-20) mg/dL Creatinine 2.28 H (0.66-1.25) mg/dL Glucose 123 H (74-99) mg/dL POC Glucose (mg/dL) 153 H (75-99) mg/dL Crossmatch 04/09/19 04/09/19 04/09/19 Range/Units 07:40 12:02 12:06 WBC 13.0 H (3.8-10.6) k/uL RBC 2.78 L (4.30-5.90) m/uL Hgb 8.2 L (13.0-17.5) gm/dL Hct 25.1 L (39.0-53.0) % RDW 15.9 H (11.5-15.5) % Sodium (137-145) mmol/L Chloride (98-107) mmol/L BUN (9-20) mg/dL Creatinine (0.66-1.25) mg/dL Glucose (74-99) mg/dL POC Glucose (mg/dL) 180 H (75-99) mg/dL Crossmatch See Detail 04/09/19 Range/Units 12:06 WBC (3.8-10.6) k/uL RBC (4.30-5.90) m/uL Hgb (13.0-17.5) gm/dL Hct (39.0-53.0) % RDW (11.5-15.5) % Sodium 134 L (137-145) mmol/L Chloride (98-107) mmol/L BUN 76 H (9-20) mg/dL Creatinine 2.34 H (0.66-1.25) mg/dL Glucose 164 H (74-99) mg/dL POC Glucose (mg/dL) (75-99) mg/dL Crossmatch Microbiology - Last 24 Hours (Table) 04/08/19 08:00 Stool Culture - Preliminary Stool - Imaging and Cardiology Chest x-ray: report reviewed, image reviewed Assessment and Plan Assessment: 1. Triple-vessel coronary artery disease, status post 5 vessel CABG 2. History of coronary artery disease and myocardial infarction with multiple stents to the RCA and LAD 3. V. fib arrest after stenting in 2010 with placement of Medtronic ICD 4. Mild to moderate left ventricular dysfunction 5. Hypertension 6. Hyperlipidemia 7. Type 2 diabetes mellitus with hemoglobin A1c 7.3% 8. Chronic kidney disease stage III 9. Persistent atrial fibrillation on chronic Eliquis for anticoagulation, status post bilateral pulmonary vein isolation and left atrial appendage ligation 10. Mild COPD with preoperative FEV1 63% of predicted 11. SUSAN with home CPAP use 12. Obesity 13. Family history of heart disease 14. Postoperative acute blood loss anemia, status post transfusion, stable 15. Postoperative thrombocytopenia, resolving 16. Postoperative controlled atrial fibrillation, currently in sinus rhythm 17. Postoperative acute on chronic kidney disease, resolving 18. Hypotension, resolving 19. Diarrhea Plan: 1. Continue low-dose aspirin, statin, and beta cely. Will increase his beta cely as tolerated. 2. Continue amiodarone for atrial fibrillation prophylaxis. Continue Eliquis 3. Encourage incentive spirometry is 10 times every hour while awake. 4. Bronchodilators per pulmonology management. 5. Increase activity as tolerated, PT/OT/cardiac rehab following. 6. Continue Midodrine 5 mg TID 7. Urology consulted, recommend pozo discontinuation, monitor for residual, bladder scan after 4 hours, if unable to void and residual >500 cc urology wants to be called. Continue Flomax 0.4 milligrams daily. 8. GI/DVT prophylaxis 9. Insulin management per primary care service. 10. Pain control with current medication regimen. Avoid Toradol due to his history of chronic kidney disease. 11. Avoid nephrotoxic agents 12. Continue to monitor daily labs and chest x-rays. Electrolyte replacement per protocol. Will transfuse 1 unit PRBCs followed by 40 mg IV lasix 13. Ordered Claritin for nasal drainage. Ordered Immodium for diarrhea, may give repeat dose. Stool sample sent for culture, WBC, occult blood 14. Discharge planning in progress. Anticipate discharge to inpatient rehab when stable 15. More recommendations to follow based on patient's clinical course. Time with Patient: Greater than 30
--- NOTE | 2019-04-09 12:58 | P.PN ---
Subjective Progress Note Date: 04/09/19 This is a 73-year-old male patient of Dr. Guevara with past medical history for coronary artery disease, paroxysmal atrial fibrillation on eliquis, diabetes mellitus type II insulin requiring with diabetic neuropathy, chronic kidney disease, kidney stones, COPD, obstructive sleep apnea with CPAP, hyperlipidemia, hypertension, and rheumatoid arthritis and cirrhotic arthritis, gout, benign prostatic hypertrophy. His primary care physician is Dr. Guevara he follows with Dr. SANAM Hinds as his managed services sales consultant. He had a heart catheterization done in 2005 that showed moderate disease involving the LAD and diagonal was mild involvement patient had some irregular lesion of the circumflex. He was seen at [facility] for chest pain and non-ST elevated OR 2010. At that time, his heart catheterization revealed an acutely occluded right coronary artery, significant disease in the moderate size third obtuse marginal branch with moderate disease in the LAD and left circumflex. Ejection fraction was 3540 percent. He underwent successful stenting of the distal RCA. Later in his room, patient developed ventricular fibrillation and was quickly resuscitated and underwent heart catheterization and underwent angioplasty and stenting of the PLV branch of the right coronary artery. On 09/14/2010, patient underwent a single chamber cardioverter defibrillator implantation. His echoca rdiogram revealed mild pulmonary hypertension, ejection fraction 40% at that time. In 2014 he underwent heart catheterization finding 45% proximal right coronary artery stenosis and significant mid LAD lesion which underwent PTCA and stenting of the mid LAD. Patient's also gives history of a septic knee joint needing washout which was done at [facility] at that time patient developed atrial fibrillation in the postop period. He also had a run of V. tach for which his AICD fired. Ever since that episode of sepsis, patient has had chronic kidney disease. Regarding his diabetes, he follows with Dr. Yoanna Mccormick. He is currently on Trulicity 1.5mg weekly, Lantus 56 units in the morning and recently changed to 18 units of NovoLog with meals. His last hemoglobin A1c was 7.4 in December at the [place] [facility]. Regarding rheumatoid arthritis and psoriatic arthritis, patient follows with Dr. Shelton. In the past he has been on methotrexate, Enbrel and Humira. He was recently on Ilaris but this was stopped when he started having cardiac problems as there is concern for arrhythmia. He contacted his follow up manager and she had recommended stopping it. The patient have follow-up in the cardiology office in December of this year and underwent a Lexiscan stress test that did not demonstrate any ischemia. Over the past 3-4 weeks she has had intermittent substernal chest pain with radiation to his arms. He was recommended for heart catheterization which was completed yesterday that found proximal LAD stenosis 60%, mid LAD stenosis 30%, circumflex stenosis 90% and RCA stenosis 60. Cardiothoracic surgery was consulted for recommendations regarding CABG versus stenting. Carotid ultrasound revealed mild plaque bilateral bifurcations but no significant stenosis. Chest x-ray reveals no acute cardiopulmonary process. Underlying COPD. patient has been evaluated by cardiothoracic surgery. Plan for tomorrow is a repeat heart catheterization to further evaluate LAD. 03/26: Patient underwent heart catheterization today with Dr. SANAM Hinds finding significant lesion in the proximal LAD and area of 2.6 mm2 also within the left main and heavy circumferential desiccation lesion in the area of 3.2 mm2. Both were deemed significant and requires bypass surgery. The patient is seen today while in the recovery area. He denies having any chest pain or shortness of breath at this time. Blood sugars will need to be well-controlled and we will make arrangements for Levemir to be 30 units in the morning and 40 at bedtime. 03/27: The patient complains of nasal congestion since he had his procedure yesterday. We will add Flonase. Regarding blood sugars nighttime blood sugar remains quite elevated and we will make additional changes to his insulins by adding NovoLog scheduled 3 units with each meal and increase nighttime Levemir to 45 units. He is scheduled for open heart on Saturday. 03/28: Patient is resting comfortably in bed without any acute distress. Patient has no complaints at this time. Patient did not receive his Levemir last night due to his blood sugar being 112. Patient's blood sugar was elevated in 150s this morning due to missing the dose of Levemir. Patient is scheduled for open heart surgery on Saturday. 03/29: Patient is sitting up in bed with at the bedside. Patient is in no acute distress. Patient has no complaints or concerns at this time. He slept well last night. Patient was given his Levemir last night his blood sugar this morning was 120. Patient is waiting to have open heart surgery on Saturday. Questions were answered. 03/30: Patient will be going for open heart surgery today we will be back in ICU on the respirator and insulin drip. 03/31: Patient is off mechanical ventilation sitting in his chair less pain and discomfort still have chest tube complaining of mild chest pain from his surgery but no other major complaint. 04/01: Patient is doing much better most of his tube out's 1 getting catheter was removed, blood sugar is much better pulse rate is running in the 60s and 70s, patient is hemodynamically stable no transfusion done last 24 hours. 04/02: Blood sugars are stable but he is still on insulin drip which we will transition to Levemir 40 units this morning, discontinue the insulin drip, start NovoLog 10 units with meals along with scale every 4 hours. Patient is complaining of back pain and neck pain. He has been tried on Lidoderm cream without improvement and now lidocaine patch. We will add in baclofen as needed. All chest tubes and Cordis out today. Uribe catheter remained for retention and patient has been started back on Flomax. Consultation In place for Dr. Haji. Patient encouraged to increase ambulation. 04/03: Patient remains in the intensive care unit. personnel monitor is A. fib with controlled rate. Repeat echocardiogram has been ordered by cardiology. Back and neck pain appeared to be improved from yesterday. He has had marginal urine output and has received fluid boluses. Due to hypotension, midodrine added, Norvasc discontinued. IV Lasix 60 mg 1 dose was ordered for today. Uribe remains in place and patient continued on Flomax. Consult was added for nephrology regarding acute kidney injury. Repeat blood work today reveals white count of 15.9, hemoglobin 8.4, platelet count 127. BUN 68 and creatinine 3.15. Blood sugars are running between 178 and 211. We are increasing Levemir to 65 units which will start tomorrow and increasing NovoLog with meals to 22 units 3 times daily. Patient is continued on NovoLog scale. Dr. Haji consult is esha yang as he is not available. 04/04: Patient remains in intensive care unit, his sitting in the chair he appears a bit weaker today his hemoglobin is is down to 7.6, he had an episode of low sugar is not eating much adjusted his insulin regimen to Levemir 45 units in the morning as well as decreasing his Humalog to 12 units plus scale with meals. Patient continues to be somewhat short of breath, he continues to have shallow breathing, he is using incentive spirometer on and off, he is generally weak he will require subacute rehabilitation versus inpatient rehabilitation. 04/05: Patient is sitting up in a chair his feeling fatigued today he is having more diarrhea, we will check his stool for C. diff, he has episode of hyperglycemia yesterday subsequently we'll decrease his Levemir to 34 units in the morning along with 50% of his Humalog if his not eating greater than 50% of his meal and to hold if is less than 100, patient suffered from Odynophagia and he does have significant thrush we will start him on nystatin swish and swallow 5 mL before each meal and at bedtime, this was discussed with the nursing staff at the bedside. 04/06: C. difficile toxin came back negative. He received 1 dose of Imodium yesterday. Repeat lab work this morning reveals WBC 12.7, hemoglobin 7.5 plat elet count 197. Sodium 133, potassium 3.7, chloride 101, CO2 18, BUN 93 and creatinine 3.02. Blood sugars running between 97 and 137 following adjustments to insulins. Patient has been afebrile, heart rate 75, blood pressure 121/56, pulse ox 97%. personnel monitor atrial fibrillation with atrial flutter. He is currently on amiodarone oral, Lopressor and eliquis. Patient is reaching 750 ml on incentive spirometry. He is eating an approximate 75% of most of his meals. Yesterday, patient was started on Lasix 60 mg IV every 12 hours and Zaroxolyn 5 mg daily. Weight is down 3-1/2 kg from yesterday. Uribe catheter is in place for retention. He has been seen by Dr. Haji and appears to be a good candidate for inpatient rehab. Repeat chest x-ray reveals mild improved pulmonary vascular congestion with stable small left pleural effusion, trace right pleural effusion and bibasilar airspace disease. Patient states that he did not sleep well last night. He is also complaining of lower abdominal pain and states he did not pass any gas this morning. Uribe cath remains in place. 04/07: Patient remains in intensive care unit. He states he is feeling better today. His appetite is a little better. Has decreased lower extremity edema. He complains of dry mouth. He is passing gas. He has been afebrile, heart rate 88, blood pressure 114/57, pulse ox 95% on room air. Repeat lab work reveals a white count of 16.5, hemoglobin 7.5, platelet count 218. BUN 89 creatinine 2.96, sodium 133, potassium 3.9, chloride 96, CO2 24. Blood sugars running between 80 and 114. Magnesium 2.5. Uribe catheter remains in place. He is currently on Lasix 40 mg IV every 12 hours. 04/08: Patient remains in intensive care unit. Lasix and Zaroxolyn has been discontinued. Patient had sudden onset of diarrhea return with abdominal cramping. Fecal management system has been placed. Hemoglobin has dropped some 0.1. Stool for occult blood is positive. Blood pressure is on the lower side 91/54-115/59. Pulse ox 94% on room air. Patient was in atrial fibrillation yesterday and currently in a sinus rhythm. Patient is complaining of soreness in his buttocks from sitting. 04/09: Patient remains in the intensive care unit. He states his diarrhea is less today. Plan is for fecal management system to be removed today. C. difficile toxin by PCR was not detected. Stool for occult blood was positive and rectal fair and negative. Repeat lab work revealed a hemoglobin of 6.9 this morning and patient received 1 unit of packed RBC with repeat hemoglobin of 8.2. WBC 13, platelet count 281. Sodium 134, potassium 4.1, chloride 98, CO2 24, BUN 76 and creatinine 2.34. Blood sugars are running 128-201. Levemir will be increased to 38 units. Patient has been seen by urology regarding urinary retention. Plan is to continue Flomax at current dose and attempt another voiding trial today. If patient is not successful, he will be discharged with catheter. He may have another voiding trial in 1 week. Blood pressure continues to be on the lower side. When patient goes to [facility] inpatient rehab, patient will be followed by Dr. Smith. Review of systems: CONSTITUTIONAL: Overweight no acute respiratory distress, appears fatigued, denies fever, denies chills. EYES: No icterus sclerae, no conjunctivitis. EARS, NOSE, MOUTH, THROAT, and FACE: No blurred vision, no sore throat. RESPIRATORY: Mild shortness of breath no cough wheezes. CARDIOVASCULAR: Denies chest pain and angina with mild shortness of breath positive PND and orthopnea. GASTROINTESTINAL: R denies eports Abd pain, Nausea or vomiting, reports Diarrhea--improving or constipation, No GI Bleed, no distention or masses. GENITOURINARY: Negative for Hematuria or UTI, no kidney stones. Reports r etention INTEGUMENT/BREAST: Negative for any muscular injury with mild osteoarthritis. HEMATOLOGIC/LYMPHATIC: Negative for bleed or purpura. MUSCULOSKELTAL: Multiple muscle and tendon involvement generalized arthralgia and myalgia. Reports neck pain. Reports lumbar back pain NEURLOGICAL: No LOC, Sz or syncope, blurred vision dizziness or abnormality. BEHAVIORAL/PSYCH: Negative. ENDOCRINE: Negative. Objective - Vital Signs Vital signs: Vital Signs Temp 98.3 F 04/09/19 09:17 Pulse 98 04/09/19 09:17 Resp 18 04/09/19 09:17 BP 118/63 04/09/19 09:17 Pulse Ox 95 04/09/19 09:17 Intake & Output 04/08/19 04/09/19 04/09/19 18:59 06:59 18:59 Intake Total 320 570 12 Output Total 820 1560 440 Balance -500 -990 -428 Weight 108.2 kg Intake: Oral 320 570 12 Blood Product 0 Rc As-1 Unit 0 [id number] Output: Urine 820 1360 440 Stool 200 Other: Voiding Method Indwelling Catheter Indwelling Catheter # Voids 0 0 ABP, PAP, CO, CI - Last Documented Arterial Blood Pressure 116/50 Pulmonary Artery Pressure 28/11 Cardiac Output 7.4 Cardiac Index 3.4 - Exam General Appearance: Alert, cooperative, no distress, appears stated age. Patient is sitting up in a recliner and appears to be in no acute distress. Neck HEENT: Supple, no lymphadenopathy, no thyroid enlargement, no carotid bruits. Lungs: Decrease breath some bilateral. Chest Wall: Incision from his surgery with dressing in place Heart: regular rate and rhythm, S1, S2 normal, no murmur, rub or gallop. Back: Symmetric, no curvature, ROM normal, no CVA tenderness. Abdomen: Soft, non-tender, bowel sounds active all four quadrants, no masses, no organomegaly. Fecal management system in place, Uribe catheter in place. Extremities: Trace edema. Pulses: 2+ and symmetric. Skin: Skin color, texture, tugor normal, no rashes or lesions. Neurologic: Alert oriented x3 cranial nerves II through XII intact, no motor deficit, no abnormal balance or gait. Generalized weakness noted - Labs CBC & Chem 7: 04/09/19 12:06 04/09/19 12:06 Labs: Abnormal Lab Results - Last 24 Hours (Table) 04/08/19 04/08/19 04/08/19 Range/Units 11:31 16:52 20:45 WBC (3.8-10.6) k/uL RBC (4.30-5.90) m/uL Hgb (13.0-17.5) gm/dL Hct (39.0-53.0) % RDW (11.5-15.5) % Sodium (137-145) mmol/L Chloride (98-107) mmol/L BUN (9-20) mg/dL Creatinine (0.66-1.25) mg/dL Glucose (74-99) mg/dL POC Glucose (mg/dL) 165 H 179 H 201 H (75-99) mg/dL Crossmatch 04/09/19 04/09/19 04/09/19 Range/Units 02:18 04:19 04:19 WBC 12.3 H (3.8-10.6) k/uL RBC 2.35 L (4.30-5.90) m/uL Hgb 6.9 L* (13.0-17.5) gm/dL Hct 21.3 L (39.0-53.0) % RDW 16.0 H (11.5-15.5) % Sodium 131 L (137-145) mmol/L Chloride 97 L (98-107) mmol/L BUN 76 H (9-20) mg/dL Creatinine 2.28 H (0.66-1.25) mg/dL Glucose 123 H (74-99) mg/dL POC Glucose (mg/dL) 128 H (75-99) mg/dL Crossmatch 04/09/19 04/09/19 Range/Units 06:45 07:40 WBC (3.8-10.6) k/uL RBC (4.30-5.90) m/uL Hgb (13.0-17.5) gm/dL Hct (39.0-53.0) % RDW (11.5-15.5) % Sodium (137-145) mmol/L Chloride (98-107) mmol/L BUN (9-20) mg/dL Creatinine (0.66-1.25) mg/dL Glucose (74-99) mg/dL POC Glucose (mg/dL) 153 H (75-99) mg/dL Crossmatch See Detail Microbiology - Last 24 Hours (Table) 04/08/19 08:00 Stool Culture - Preliminary Stool Assessment and Plan Plan: 1. Triple-vessel coronary artery disease: Post 5 vessel bypass surgery continue aggressive pulmonary toileting. 2. History of non-ST elevated myocardial infarction, coronary artery disease and multiple stents. 5 vessel bypass surgery 3. Diabetes mellitus type 2 with end organ damage, uncontrolled with hyperglycemia. Increase Levemir to 38 units in the morning, continue NovoLog scheduled 12 units with meals and continue NovoLog scale, also hold Humalog for BGM was in 100. 4. Chronic atrial fibrillation. Continue oral amiodarone, Lopressor and eliquis. 5. Hypertension. Continue Lopressor 6. Hyperlipidemia. Continue atorvastatin 40 mg daily 7. Chronic kidney disease. Monitor renal function and avoid nephrotoxic agents. 8. Obstructive sleep apnea with home CPAP. 9. Diarrhea. Clostridium difficile negative. 10. History of ventricular tachycardia and cardiomyopathy status post AICD, stable 11. Gastroesophageal reflux disease. Continue Protonix 12. Acute kidney injury with chronic kidney disease stage 3. Avoid nephrotoxic agents. 13. Benign prostatic hypertrophy. Continue Flomax. Urology consult appreciated. 14. Thrush. 15. Medical debility. Physical therapy evaluation likely will require subacute rehabilitation or inpatient rehab. 16. Postoperative atrial fibrillation, expected. 17. Postoperative anemia, expected. Discharge plan: inpatient rehab at [facility] Impression and plan of care have been directed as dictated by the signing physician. Leigh Bailey nurse practitioner acting as scribe for signing physician.
--- NOTE | 2019-04-09 13:26 | P.PN ---
Subjective Progress Note Date: 04/09/19 Principal diagnosis: Status post CABG, postoperative day # 10 On today's evaluation of 04/05/2019, seeing this patient for a follow-up. He is awake and alert on room air oxygen. His chest x-ray showing atelectatic changes especially left lung base. He still has edema in lower extremities bilaterally. He was given a dose of Zaroxolyn and he is also on IV Lasix a 60 mg every 12 hours. The patient has a creatinine of 3.17 which is essentially stable compared to yesterday. The white cell count is at 7.5. He is using incentive spirometer and achieving approximately a liter. He is not having any chest pain. He is in atrial fibrillation for now. His medications include amiodarone 200 mg by mouth twice a day, metoprolol 25 mg by mouth twice a day, aspirin,Eliquis 2.5 mg twice a day and Midrin was also added regarding his lower blood pressure. Insulin is at 34 units subcu along with 12 units with meals and the scale. His sternum stable clean and intact. No other significant events over the past 24 hours. On 04/06/2019, patient remains in the ICU, complaining of generalized aches and pains, sore throat, sore legs, sore buttock, and feels generally weak. Patient is being evaluated by physical therapy, and he is being considered for possible referral to rehab at [facility]. Chest x-ray continues to show mild interstitial edema. Patient is receiving diuretics by thoracic surgery. All labs were reviewed today, BUN is 93 creatinine is 3.02 hemoglobin is 7.5. On 04/07/2019,POD #8 quintuple coronary artery bypass grafting using the left internal mammary artery to the left anterior descending coronary artery, left radial artery from the aorta to the first obtuse marginal coronary artery, reverse greater saphenous vein graft from the aorta to the diagonal coronary artery, reverse greater saphenous vein graft from the aorta to the posterior descending coronary artery, and reverse greater saphenous vein graft from aorta to the posterior lateral branch of the right coronary artery. patient remains in the intensive care unit, sitting up in a recliner in the intensive care unit, in no distress, doing fairly well with incentive spirometry and achieving about 1000 and mild. No more loose stools. Patient remains on oral amiodarone, Lopressor, and Eliquis. Presently in normal sinus rhythm. Labs today showed WBC of 16.5 hemoglobin is 7.5 Lites are normal BUN is 89 and creatinine 2.96. Chest x-ray showed mild congestive heart failure. Reevaluated today on 04/08/2019, patient remains in the ICU, denies any chest pain shortness of breath cough or wheezing, however he is complaining of runny nose, painful buttocks, and diarrhea/loose bowel movements. Continues to do well with incentive spirometry, remains in normal sinus rhythm, remains on Eliquis amiodarone and Lopressor. All labs were reviewed BUN is 84 creatinine 2.56 sodium is 130 potassium 3.5 bicarb is 20 to hemoglobin is 7.1 WBC count is 14.5. Chest x-ray showed improving pulmonary edema/congestive heart failure. Lasix is presently on hold. Reevaluated today on 04/09/2019, patient is feeling better today, breathing easier, his hemoglobin is low and he is receiving a unit of packed RBC this morning. He denies any chest pain or shortness of breath, continues to use incentive spirometer. Hemoglobin earlier today was 6.9. Remains on same medications as noted above including Eliquis Lopressor and amiodarone. His diarrhea is significantly improved, and his workup for C. difficile colitis was negative. He was seen by urology for bladder outflow obstruction and he may consider discharging the patient home with a catheter in place. CBC is relatively normal except for low hemoglobin as noted above renal functioning is about the same with BUN of 76 creatinine 2.34. Chest x-ray continues to show mild congestive changes and bibasilar atelectasis. Objective - Vital Signs Vital signs: Vital Signs Temp 98.4 F 04/09/19 12:00 Pulse 83 04/09/19 12:00 Resp 19 04/09/19 12:00 BP 113/53 04/09/19 12:00 Pulse Ox 96 04/09/19 12:00 Intake & Output 04/08/19 04/09/19 04/09/19 18:59 06:59 18:59 Intake Total 320 570 322 Output Total 820 1560 880 Balance -500 -990 -558 Weight 108.2 kg 108.2 kg Intake: Oral 320 570 12 Blood Product 310 Rc As-1 Unit 310 [id number] Output: Urine 820 1360 680 Stool 200 200 Other: Voiding Method Indwelling Catheter Indwelling Catheter # Voids 0 0 ABP, PAP, CO, CI - Last Documented Arterial Blood Pressure 116/50 Pulmonary Artery Pressure 28/11 Cardiac Output 7.4 Cardiac Index 3.4 - Exam Physical exam revealed a 73-year-old white male in no distress. HEENT: No neck masses no JVD, throat is clear. Lungs: No crackles or rhonchi or wheezes, Chest Wall symmetrical chest expansion. No chest wall tenderness. Incision is clean. Heart: Regular rhythm, no S3 gallop. Abdomen: Obese, soft, nontender, no rebound no guarding. Extremities: No clubbing or cyanosis, trace of edema noted bilaterally. Pulses: Good pulses bilaterally 2+. Skin: Normal skin turgor, no rashes.. Neurologic: Alert and oriented 3, no gross focal neurologic deficit. Psychiatric: Normal mood affect and normal mental status examination. - Labs CBC & Chem 7: 04/09/19 12:06 04/09/19 12:06 Labs: Abnormal Lab Results - Last 24 Hours (Table) 04/08/19 04/08/19 04/09/19 Range/Units 16:52 20:45 02:18 WBC (3.8-10.6) k/uL RBC (4.30-5.90) m/uL Hgb (13.0-17.5) gm/dL Hct (39.0-53.0) % RDW (11.5-15.5) % Sodium (137-145) mmol/L Chloride (98-107) mmol/L BUN (9-20) mg/dL Creatinine (0.66-1.25) mg/dL Glucose (74-99) mg/dL POC Glucose (mg/dL) 179 H 201 H 128 H (75-99) mg/dL Crossmatch 04/09/19 04/09/19 04/09/19 Range/Units 04:19 04:19 06:45 WBC 12.3 H (3.8-10.6) k/uL RBC 2.35 L (4.30-5.90) m/uL Hgb 6.9 L* (13.0-17.5) gm/dL Hct 21.3 L (39.0-53.0) % RDW 16.0 H (11.5-15.5) % Sodium 131 L (137-145) mmol/L Chloride 97 L (98-107) mmol/L BUN 76 H (9-20) mg/dL Creatinine 2.28 H (0.66-1.25) mg/dL Glucose 123 H (74-99) mg/dL POC Glucose (mg/dL) 153 H (75-99) mg/dL Crossmatch 04/09/19 04/09/19 04/09/19 Range/Units 07:40 12:02 12:06 WBC 13.0 H (3.8-10.6) k/uL RBC 2.78 L (4.30-5.90) m/uL Hgb 8.2 L (13.0-17.5) gm/dL Hct 25.1 L (39.0-53.0) % RDW 15.9 H (11.5-15.5) % Sodium (137-145) mmol/L Chloride (98-107) mmol/L BUN (9-20) mg/dL Creatinine (0.66-1.25) mg/dL Glucose (74-99) mg/dL POC Glucose (mg/dL) 180 H (75-99) mg/dL Crossmatch See Detail 04/09/19 Range/Units 12:06 WBC (3.8-10.6) k/uL RBC (4.30-5.90) m/uL Hgb (13.0-17.5) gm/dL Hct (39.0-53.0) % RDW (11.5-15.5) % Sodium 134 L (137-145) mmol/L Chloride (98-107) mmol/L BUN 76 H (9-20) mg/dL Creatinine 2.34 H (0.66-1.25) mg/dL Glucose 164 H (74-99) mg/dL POC Glucose (mg/dL) (75-99) mg/dL Crossmatch Microbiology - Last 24 Hours (Table) 04/08/19 08:00 Stool Culture - Preliminary Stool Assessment and Plan Assessment: Impression: 1 status post CABG for triple vessel coronary artery disease, postoperative day #10 2 history of non-ST elevation myocardial infarction 3 chronic atrial fibrillation 4 hypertension 5 type 2 diabetes 6 obstructive sleep apnea syndrome on home CPAP 7 chronic kidney disease 8 history of ventricular tachycardia and cardiomyopathy previous AICD placement. 9 medical debility. Recommendation: Continue present supportive care measures, continue incentive spirometry, continue ambulation, Continue low-dose aspirin, statins and beta blockers, and amiodarone. Encourage incentive spirometry Continue bronchodilators Transfuse for hemoglobin below 7 today. Increase activity as tolerated Continue GI and DVT prophylaxis Continue pain control management Continue to avoid nephrotoxic agents We'll continue to follow. Time with Patient: Less than 30
[2019-04-09 16:34] LABS: Glucose,Whole Blood 150 mg/dL (75-99)
[2019-04-09] MEDS: BENZOCAINE/MENTHOL LOZENG 1 EACH LOZENGE MUCOUS MEM PRN ×3 (16:39→19:45)
[2019-04-09] MEDS ORDERED: LOPERAMIDE 2 MG CAP PO PRN (16:58)
[2019-04-09 20:32] LABS: Glucose,Whole Blood 186 mg/dL (75-99)
[2019-04-09] MEDS ORDERED: FLUTICASONE 50MCG/SPRAY NASAL 16GM EA NOSTRIL PRN (21:15)
[2019-04-10 01:10] LABS: Glucose,Whole Blood 107 mg/dL (75-99)
[2019-04-10] MEDS: INSULIN ASPART (NovoLOG) 100 UNIT/ML VIAL SQ SCH ×4 (01:37→12:40)
[2019-04-10] MEDS: BENZOCAINE/MENTHOL LOZENG 1 EACH LOZENGE MUCOUS MEM PRN (05:33)
[2019-04-10 06:40] LABS: Anisocytosis Slight; HCT 23.4 % (39.0-53.0); HGB 7.8 gm/dL (13.0-17.5); Hypochromasia Slight; MCHC 33.4 g/dL (31.0-37.0); MCV 89.8 fL (80.0-100.0); Mean Platelet Volume 6.2; Platelet Count 270 k/uL (150-450); Poikilocytosis Moderate; WBC 11.2 k/uL (3.8-10.6)
[2019-04-10 06:50] LABS: Calcium 8.6 mg/dL (8.4-10.2)
[2019-04-10] MEDS ORDERED: INSULIN DETEMIR (LEVEMIR) 100 UNIT/ML SYR SQ SCH (07:00)
[2019-04-10] MEDS: PANTOPRAZOLE 40 MG TABLET PO SCH (07:07)
[2019-04-10] MEDS: MIDODRINE 5 MG TAB PO SCH ×2 (07:07→12:40)
[2019-04-10] MEDS: IPRATROPIUM-ALBUTEROL 3 ML NEB INHALATION SCH ×2 (08:01→12:13)
--- NOTE | 2019-04-10 08:26 | P.PN ---
Subjective Progress Note Date: 04/10/19 Principal diagnosis: Severe CAD and status post CABG This is a pleasant 73-year-old gentleman who sees Dr. SANAM Hinds in the office on regular basis with a past medical history significant for diabetes, hypertension, dyslipidemia, long-standing persistent atrial fibrillation on oral anticoagulation, as well as chronic kidney disease, underwent elective coronary artery bypass grafting, week ago. The recovery was slow mainly because of renal failure. On follow-up with the patient today, 04/10/2019, the patient overall clinically is doing good. On examination he seems to be euvolemic. The hemoglobin this morning is above 7. He was received one unit of packed RBC. I anticipated the patient to be discharged to extended care facility later on today. He is on aspirin as well as oral anticoagulation. Objective - Vital Signs Vital signs: Vital Signs Temp 98.5 F 04/10/19 04:00 Pulse 88 04/10/19 04:00 Resp 18 04/10/19 04:00 BP 124/88 04/10/19 04:00 Pulse Ox 93 L 04/10/19 04:00 Intake & Output 04/09/19 04/10/19 04/10/19 18:59 06:59 18:59 Intake Total 682 Output Total 1605 1100 Balance -923 -1100 Weight 108.2 kg 113.5 kg Intake: Oral 372 Blood Product 310 Rc As-1 Unit 310 [id number] Output: Urine 1405 1100 Uretheral (Uribe) 600 Stool 200 Other: Voiding Method Indwelling Catheter Indwelling Catheter # Voids 0 0 ABP, PAP, CO, CI - Last Documented Arterial Blood Pressure 116/50 Pulmonary Artery Pressure 28/11 Cardiac Output 7.4 Cardiac Index 3.4 - Constitutional General appearance: Present: no acute distress - Respiratory Respiratory: bilateral: CTA - Cardiovascular Rhythm: regular Heart sounds: normal: S1, S2 - Labs CBC & Chem 7: 04/10/19 05:35 04/10/19 05:35 Labs: Abnormal Lab Results - Last 24 Hours (Table) 04/09/19 04/09/19 04/09/19 Range/Units 07:40 12:02 12:06 WBC 13.0 H (3.8-10.6) k/uL RBC 2.78 L (4.30-5.90) m/uL Hgb 8.2 L (13.0-17.5) gm/dL Hct 25.1 L (39.0-53.0) % RDW 15.9 H (11.5-15.5) % Sodium (137-145) mmol/L BUN (9-20) mg/dL Creatinine (0.66-1.25) mg/dL Glucose (74-99) mg/dL POC Glucose (mg/dL) 180 H (75-99) mg/dL Crossmatch See Detail 04/09/19 04/09/19 04/09/19 Range/Units 12:06 16:33 20:31 WBC (3.8-10.6) k/uL RBC (4.30-5.90) m/uL Hgb (13.0-17.5) gm/dL Hct (39.0-53.0) % RDW (11.5-15.5) % Sodium 134 L (137-145) mmol/L BUN 76 H (9-20) mg/dL Creatinine 2.34 H (0.66-1.25) mg/dL Glucose 164 H (74-99) mg/dL POC Glucose (mg/dL) 150 H 186 H (75-99) mg/dL Crossmatch 04/10/19 04/10/19 04/10/19 Range/Units 01:08 05:35 05:35 WBC 11.2 H (3.8-10.6) k/uL RBC 2.60 L (4.30-5.90) m/uL Hgb 7.8 L (13.0-17.5) gm/dL Hct 23.4 L (39.0-53.0) % RDW 16.0 H (11.5-15.5) % Sodium 133 L (137-145) mmol/L BUN 79 H (9-20) mg/dL Creatinine 2.36 H (0.66-1.25) mg/dL Glucose 103 H (74-99) mg/dL POC Glucose (mg/dL) 107 H (75-99) mg/dL Crossmatch Assessment and Plan Assessment: Assessment #1 severe CAD and status post CABG #2 acute on chronic renal failure #3 long-standing persistent atrial fibrillation #4 hypotension which has resolved #5 multiple comorbid conditions Plan #1 continue the current medical regimen #2 follow-up with the patient #3 patient is possibly going into an extended-care facility today
[2019-04-10] MEDS: ALLOPURINOL 100 MG TAB PO SCH (08:30)
[2019-04-10] MEDS: APIXABAN 2.5 MG TABLET PO SCH (08:31)
[2019-04-10] MEDS: ASPIRIN 81 MG PO SCH (08:31)
[2019-04-10] MEDS: LIDOCAINE 5% PATCH TOPICAL SCH (08:31)
[2019-04-10] MEDS: AMIODARONE 200 MG TAB PO SCH (08:31)
[2019-04-10] MEDS: ATORVASTATIN 40 MG TAB PO SCH (08:31)
[2019-04-10] MEDS: TAMSULOSIN 0.4 MG CAP.ER.24H PO SCH (08:31)
[2019-04-10] MEDS: BACLOFEN 10 MG TAB PO PRN (08:41)
[2019-04-10] MEDS ORDERED: METOPROLOL TARTRATE 25 MG TAB PO SCH (09:00)
--- NOTE | 2019-04-10 09:00 | XR ---
EXAMINATION TYPE: XR chest 2V DATE OF EXAM: 04/10/2019 COMPARISON: 04/09/2019 HISTORY: Status post cardiac surgery TECHNIQUE: Frontal and lateral views of the chest are obtained. FINDINGS: Cardiomediastinal silhouette is enlarged with post CABG changes and single lead left-sided cardiac defibrillator. Trace pleural effusions remain. There is improved aeration of the lung bases with minimal bibasilar airspace disease, likely atelectasis. No postprocedural pneumothorax. IMPRESSION: Improved aeration of the lung bases with minimal bibasilar opacities remaining, likely a telectasis. Vascular congestion has resolved.
--- NOTE | 2019-04-10 10:35 | P.PN ---
Subjective Progress Note Date: 04/10/19 Principal diagnosis: Coronary artery disease On 03/29/2019 patient seen in follow-up on selective care unit, he is awake and alert, in no acute distress, room air pulse ox is 96%, doing well, denies any chest pain, no fever or chills, hemodynamically stable. 9 any chest x-ray today, today's labs have been reviewed. No acute issues overnight, lung sounds are clear, patient is awaiting surgery bypass grafting by Dr. Hurst tomorrow on 03/30/2019. On 04/01/2019 patient may seen in follow-up in the intensive care unit. This is postop day 2 status post quadruple coronary artery bypass grafting using the RAMIREZ to LAD, left radial artery to the first up to his marginal coronary artery, reverse SVG to the diagonal, and a reverse SVG to the PDA and posterior lateral branch of the RCA. Patient also had the left atrial appendage exclusion with the 35mm a true clip and Intra-Op transesophageal echocardiogram and at the aortic scanning. Doing well, in no acute distress, he has been up ambulating, tolerating activity well, room air pulse ox is 97%, hemodynamically stable, no fever or chills, remains in sinus mechanism with a controlled rate. He is working on the incentive spirometer, he is achieving 500-750 ML, right IJ Cordis is in place, current CVP is 12 mmHg, mediastinal and left pleural chest tubes are in place, draining thin serosanguineous drainage. Patient has been up ambulating, with assistance, limited activity well. " Today 6.7, and patient did receive 1 unit of packed red blood cells this morning. His chest x-ray today, showed interval removal of the [place] catheter, and a trace pleural effusions and bibasilar atelectasis. On 04/02/2019 patient seen in follow-up in the intensive care unit, he is complaining of some sacral pain today, he is sitting up in the recliner, and she is mild to moderate amount of discomfort from his lower back and sacral pain, currently on 2 L of oxygen and the pulse ox of 98%, this morning he did experience some hypotension, with a couple of episodes of systolic in the 60s to 80s, and patient is currently on metoprolol 50 mg twice daily, Norvasc 2-1/2 mg once daily, and oral amiodarone. His distal blockers were adjusted, and the dose was dropped down to 25 mg twice daily. She was transiently lightheaded and experienced some visual changes, his legs were reclined in his recliner, and small fluid bolus was given, and his blood pressure has recovered and is currently at 105/56, patient remains in sinus rhythm, with a rate in the 60s and 70s, but he is afebrile, she denies any difficulty breathing, he is working on incentive spirometer, today's chest x-ray has been reviewed showing pulmonary venous hypertension and interstitial edema, changes consistent with volume overload, but oxygenation is stable. His mediastinal and left pleural chest tube has been removed yesterday, lung sounds are clear, diminished at the bases. No infusing IVs. Urine output has diminished from 35-10 and 15 ML per hour this afternoon. Patient is getting additional volume in the form of albumin, so far he has received 750 mL of 5% albumin. On 04/10/2019 patient seen in follow-up of care unit, she is sitting up in the chair, in mild to moderate amount of distress from a open sore on his coccyx, in between the glutes. But denies any difficulty breathing, he is currently on room air, the pulse ox of 93-94%, hemodynamically stable, sounds reveal diminished breath sounds at bilateral bases, no rhonchi, no wheezing, his incentive spirometer effort is 1000 ML today. No running infusing IVs, no drips. All chest tubes been discontinued, Uribe catheter had to be reinserted for episode of urinary retention, his urine is slightly pink tinged. Today's labs have been reviewed, showing white blood cell count of 11.2, hemoglobin of 7.8, sodium is 133, dorsiflexion lites were within normal limits, BUN is 79 creatinine is 2.36, renal profile is stable. His chest x-ray has been reviewed showing improved aeration of the lung bases with minimal bibasilar opacities likely related to atelectasis, vascular congestion has resolved, patient was given a dose of IV Lasix yesterday and he is in negative 2022 mL fluid balance over the last 24 hours, he is on oral anticoagulation in the form of Eliquis for paroxysmal atrial fibrillation, he is currently in sinus rhythm with a rate of 76 BPM. Objective - Vital Signs Vital signs: Vital Signs Temp 98.5 F 04/10/19 04:00 Pulse 88 04/10/19 04:00 Resp 18 04/10/19 04:00 BP 124/88 04/10/19 04:00 Pulse Ox 93 L 04/10/19 04:00 Intake & Output 04/09/19 04/10/19 04/10/19 18:59 06:59 18:59 Intake Total 682 Output Total 1605 1100 Balance -923 -1100 Weight 108.2 kg 113.5 kg Intake: Oral 372 Blood Product 310 Rc As-1 Unit 310 [id number] Output: Urine 1405 1100 Uretheral (Uribe) 600 Stool 200 Other: Voiding Method Indwelling Catheter Indwelling Catheter # Voids 0 0 ABP, PAP, CO, CI - Last Documented Arterial Blood Pressure 116/50 Pulmonary Artery Pressure 28/11 Cardiac Output 7.4 Cardiac Index 3.4 - Exam GENERAL EXAM: Alert, pleasant, 73-year-old white male mildly uncomfortable from a and open sore on his coccyx, on room air HEAD: Normocephalic/atraumatic. EYES: Normal reaction of pupils, equal size. Conjunctiva pink, sclera white. NOSE: Clear with pink turbinates. THROAT: No erythema or exudates. NECK: No masses, no JVD, no thyroid enlargement, no adenopathy. CHEST: No chest wall deformity. Symmetrical expansion. Midsternal incision, clean dry and intact, covered with dressing, interval removal of the mediastinal and left pleural chest tubes LUNGS: Equal air entry with no crackles, wheeze, rhonchi or dullness. CVS: Regular rate and rhythm, normal S1 and S2, no gallops, no murmurs, no rubs ABDOMEN: Soft, nontender. No hepatosplenomegaly, normal bowel sounds, no guarding or rigidity. EXTREMITIES: No clubbing, no edema, no cyanosis, 2+ pulses and upper and lower extremities. Bilateral lower extremities are luke wrapped, SCDs are on MUSCULOSKELETAL: Muscle strength and tone normal. SPINE: No scoliosis or deformity SKIN: No rashes. Open fissure in between his buttocks, no other open skin lesions CENTRAL NERVOUS SYSTEM: Alert and oriented -3. No focal deficits, tone is normal in all 4 extremities. PSYCHIATRIC: Alert and oriented -3. Appropriate affect. Intact judgment and insight. - Labs CBC & Chem 7: 04/10/19 05:35 04/10/19 05:35 Labs: Abnormal Lab Results - Last 24 Hours (Table) 04/09/19 04/09/19 04/09/19 Range/Units 07:40 12:02 12:06 WBC 13.0 H (3.8-10.6) k/uL RBC 2.78 L (4.30-5.90) m/uL Hgb 8.2 L (13.0-17.5) gm/dL Hct 25.1 L (39.0-53.0) % RDW 15.9 H (11.5-15.5) % Sodium (137-145) mmol/L BUN (9-20) mg/dL Creatinine (0.66-1.25) mg/dL Glucose (74-99) mg/dL POC Glucose (mg/dL) 180 H (75-99) mg/dL Crossmatch See Detail 04/09/19 04/09/19 04/09/19 Range/Units 12:06 16:33 20:31 WBC (3.8-10.6) k/uL RBC (4.30-5.90) m/uL Hgb (13.0-17.5) gm/dL Hct (39.0-53.0) % RDW (11.5-15.5) % Sodium 134 L (137-145) mmol/L BUN 76 H (9-20) mg/dL Creatinine 2.34 H (0.66-1.25) mg/dL Glucose 164 H (74-99) mg/dL POC Glucose (mg/dL) 150 H 186 H (75-99) mg/dL Crossmatch 04/10/19 04/10/19 04/10/19 Range/Units 01:08 05:35 05:35 WBC 11.2 H (3.8-10.6) k/uL RBC 2.60 L (4.30-5.90) m/uL Hgb 7.8 L (13.0-17.5) gm/dL Hct 23.4 L (39.0-53.0) % RDW 16.0 H (11.5-15.5) % Sodium 133 L (137-145) mmol/L BUN 79 H (9-20) mg/dL Creatinine 2.36 H (0.66-1.25) mg/dL Glucose 103 H (74-99) mg/dL POC Glucose (mg/dL) 107 H (75-99) mg/dL Crossmatch Assessment and Plan Plan: Assessment: #1 Coronary artery disease with significant disease involving the proximal LAD and left main, status post quadruple coronary artery bypass grafting surgery u sing the RAMIREZ to LAD, left radial artery to the first OM, reverse SVG to the diagonal, reverse SVG to the PDA and posterior lateral branch of the right coronary artery, bilateral pulmonary vein isolation using bipolar radiofrequency and exclusion of the left atrial appendage using that and she'll clip and intraoperative transesophageal echocardiogram, postoperative day 11 #2 postoperative acute blood loss anemia, an expected outcome of cardiopulmonary bypass and revascularization surgery #3 thrombocytopenia, and expected outcome of cardiopulmonary bypass and revascularization surgery, improved #4 history of atrial fibrillation, currently in sinus rhythm, on oral anticoagulation in the form of Eliquis #5 chronic kidney disease #6 acute kidney injury related to ATN #7 Previous history of coronary artery disease with stent placement #8 Ischemic cardiomyopathy and ventricular tachycardia status post AICD placement. #9 History of atrial fibrillation. #10 Chronic bronchitis, currently inactive and stable. FEV1 value 63% of predicted. Patient also has a component of restrictive lung disease, with FEV1 to FVC ratio of 101% of predicted #11 Hyperlipidemia. #12 Hypertension. #13 History of pulmonary embolism. #14 Obstructive sleep apnea utilizing CPAP. 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 #16 Diabetes mellitus. #17 Peripheral neuropathy. #18 History of gout. #19 diarrhea, C. diff negative, stool lactoferrin negative, occult stool positive Plan: Continue encouraging deep breathing and coughing, ambulation. Today's chest x- ray has been reviewed, showing improved aeration at the bilateral bases, with a residual atelectasis. Patient is in negative fluid balance, after a dose of Lasix yesterday, breathing easier, he remains on room air, hemodynamically stable, remains in sinus mechanism, continues on oral anticoagulation for history of paroxysmal atrial fibrillation. Follow stable, Uribe remains in place, after being reinserted for urinary retention. No other acute issues overnight. Diarrhea has improved, continues on Imodium. Fecal management system was removed. Discharge planning is in progress for discharge to inpatient rehab I performed a history & physical examination of the patient and discussed their management with my nurse practitioner, Jyothi Green. I reviewed the nurse practitioner's note and agree with the documented findings and plan of care. Lung sounds are positive for clear breath sounds. The findings and the impression was discussed with the patient. I attest to the documentation by the nurse practitioner. Time with Patient: Less than 30
[2019-04-10 11:51] VITALS: BP 141/60; PULSE 96; RESP 16; TEMP 98.3
--- NOTE | 2019-04-10 11:54 | P.DS ---
Providers Date of admission: 03/26/19 08:16 Expected date of discharge: 04/10/19 Attending physician: Daphne Hurst Consults: 03/24/19 14:16 Consult Physician Routine Consulting Provider: Daphne Hurst Consult Reason/Comments: cardiac stenosis Do you want consulting provider notified?: Already Contacted 03/24/19 14:17 Consult Physician Routine Consulting Provider: Erasmo Guevara Consult Reason/Comments: medical management Do you want consulting provider notified?: Yes 03/27/19 07:24 Consult Physician Routine Consulting Provider: Momo Menard Consult Reason/Comments: Pulmonary and intensive care management Do you want consulting provider notified?: Yes Consult to Anesthesia Routine Consulting Provider: Anesthesia,Services Consult Reason/Comments: Cardiac Surgery Pre-Op 03/31/19 13:46 Consult Physician Routine Consulting Provider: Drew Zheng Consult Reason/Comments: post op open heart Do you want consulting provider notified?: Already Contacted 04/02/19 09:05 Consult Physician Routine Consulting Provider: Hira Haji Consult Reason/Comments: inpatient rehab Do you want consulting provider notified?: Yes 04/08/19 12:57 Consult Physician Routine Consulting Provider: Adalberto Harvey Consult Reason/Comments: retention Do you want consulting provider notified?: Yes Primary care physician: Erasmo Guevara [facility] Course: FINAL DIAGNOSIS: 1. Triple-vessel coronary artery disease 2. History of coronary artery disease and myocardial infarction with multiple stents to the RCA and LAD 3. 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 Mild to moderate left ventricular dysfunction with an ejection fraction of 40-45% per 2-D echocardiogram 5. Hypertension 6. Hyperlipidemia 7. Type 2 diabetes mellitus with hemoglobin A1c 7.3% 8. Chronic kidney disease stage III 9. Preoperative persistent atrial fibrillation on chronic Eliquis for anticoagulation 10. Mild COPD with preoperative FEV1 63% of predicted 11. Obstructive sleep apnea with home CPAP use. 12. Obesity 13. Family history of heart disease 14. Postoperative acute blood loss anemia 15. Postoperative thrombocytopenia 16. Postoperative diarrhea PRINCIPAL PROCEDURE: 1. Quintuple coronary artery bypass grafting using the left internal mammary artery to the left anterior descending coronary artery, left radial artery from the aorta to the first obtuse marginal coronary artery, reverse greater saphenous vein graft from the aorta to the diagonal coronary artery, reverse greater saphenous vein graft from the aorta to the posterior descending coronary artery, and a reverse greater saphenous vein graft from the aorta to the posterior lateral branch of the right coronary artery 2. Bilateral pulmonary vein isolation using the bipolar radiofrequency energy by AtriCure. 3. Exclusion of the left atrial appendage using a 35 mm AtriClip. 4. Endoscopic left radial artery harvest. 5. Endoscopic harvesting of the left greater saphenous vein from the groin to above the ankle level and right greater saphenous vein from the groin to above the knee level. 6. Intraoperative graft flow measurements using the Medistim system. 7. Intraoperative transesophageal echocardiogram and epi-aortic scanning. HISTORY OF PRESENT ILLNESS: This is a 73-year-old gentleman who follows on an outpatient basis with Dr. Guevara. Apparently throughout the summer he had noticed increasing shortness of breath. He was seen in the cardiology office in December 2018 and had a Lexiscan stress test which did not appear to demonstrate any ischemia. In the last 3-4 weeks he begin to experience intermittent substernal chest pain with radiation to his arms. He denied any other aggravating or alleviating symptoms. He was recommended to undergo heart catheterization which demonstrated proximal LAD stenosis 60%, mid LAD stenosis 30%, tight proximal circumflex stenosis 90%, and RCA stenosis 60%. He also had IVUS performed which demonstrated significant lesion in the proximal LAD and left main coronary artery. Transthoracic echocardiogram demonstrated normal left ventricular size with moderate concentric left ventricular hypertrophy, mild to moderately impaired systolic function with EF 40-45%, grade 1 diastolic dysfunction, and hypokinesis of the basal inferior, basal inferoseptal, and mid inferior LV wall motion with no significant valvular abnormalities. Consultation was placed for Dr. Husrt from cardiothoracic surgery. He was recommended to undergo urgent coronary artery bypass surgery. The usual perioperative course was discussed in detail with the patient and his family, all risks and benefits were explained, all questions were answered, and consent was obtained to proceed with surgery. The patient was kept inpatient due to the nature of his disease process. HOSPITAL COURSE: The patient was brought to the preoperative area on 03/30/2019, prepared in the usual fashion, and subsequently taken to the operating room where Dr. Hurst performed 5 vessel CABG using the left radial artery and bilateral greater saphenous veins, as well as bilateral pulmonary vein isolation and exclusion of the left atrial appendage. Upon completion of surgery the patient was transferred to the cardiovascular intensive care unit where he was recovered, monitored hemodynamically, and where he progressed to cardiac rehabilitation phase 1. He was extubated, all lines, tubes, and supportive drips were discontinued when appropriate. He did experience acute blood loss anemia and received one unit of packed red blood cells, postoperative thrombocytopenia which required no intervention, controlled atrial fibrillation which he had a history of and which was treated with amiodarone and Eliquis and postoperative acute on chronic kidney disease which was monitored closely. He was subsequently transferred to the 3 S. cardiac stepdown unit for further monitoring and rehabilitation. His oxygen was titrated down, he continued to work with physical and occupational therapy, he was tolerating oral diet, his pain was controlled, and he was ready to be discharged to [facility] inpatient rehab on postoperative day #11. He has received written and verbal instruction regarding his medications, activity restrictions, signs and symptoms requiring physician notification, and his follow-up appointments. COMPLICATIONS: There were no postoperative complications. CONSULTATIONS AT [facility]: 1. Dr. SANAM Hinds for cardiology management. 2. Dr. Menard for pulmonology management. 3. Dr. Guevara for medical management. 4. Dr. Haji for rehab management. DISCHARGE INSTRUCTIONS: 1. No driving for 4 weeks, or until physician gives their ok. 2. The patient should sleep in their own bed, no medical bed needed. 3. Stairs are not an issue. If the bedroom is upstairs, it is advised that the patient go up at night and down in the morning for the first week. Go slowly, using handrail and take 1 step at a time. 4. YANG hose are to be worn for 30 days or until physician discontinues. 5. Heart hugger is to be worn 100% of the time until physician discontinues.(except when showering) 6. No lifting, pushing, or pulling more than 10 pounds for 12 weeks. The physician will advise of any restriction changes. 7. The patient is expected to continue the prescribed walking program. 8. Continue pain control per as needed orders. 9. Continue with incentive spirometry and splinting/heart hugger until otherwise directed by the physician. 10. Must shower daily using liquid antibacterial soap and a separate white washcloth for each individual incision. 11. Routine sternal incision care. No powders, lotions, ointments on incisions. 12. Please call surgeon/MALT SPECIFICATIONS CONTROL ASSISTANT for temp greater than 101 F or purulent drainage from incisions. 13. All prescriptions given by surgeon for 30 days. Refills need to be filled through fresh foods technician/primary care physician. 14. A Red armband has been placed on the patient. It should be worn for 30 days post surgery and will be removed by the cardiac surgeons. If an ER visit is necessary, please make sure the number on the Red armband is called. 15. ABSOLUTELY NO NARCOTICS. If narcotics are felt to be needed for pain control, please call cardiac surgeon or MALT SPECIFICATIONS CONTROL ASSISTANT first. 16. Avoid nephrotoxic agents, the patient will not be discharged on an PATTI inhibitor or arm at this time due to his elevation and BUN and creatinine. This will be monitored on an outpatient basis. [facility]/HOME HEALTH SERVICES TO PROVIDE: RN SKILLED HOME CARE SERVICES FOR POST-OP SURGICAL PATIENTS WITH THE FOLLOWING: Coronary Artery Bypass Surgery (CABG), Mitral Valve Replacement/Repair ( MVR), Aortic Valve Replacement/Repair (AVR) RN TO CONTINUE EDUCATION FROM ``ROAD TO A HEALTH HEART PATIENT EDUCATION MANUAL (GIVEN TO PATIENT IN THE HOSPITAL) MEDICATION RECONCILIATION WITH EDUCATION NEEDED ON FIRST HOME VISIT EMPHASIZE IMPORTANCE OF WEARING BREAST SUPPORT/HEART HUGGER ENCOURAGE USE OF INCENTIVE SPIROMETER 10 X EVERY HOUR WHILE AWAKE ENCOURAGE UTILIZATION OF LOWER EXTREMITY COMPRESSION STOCKINGS/YANG HOSE and ELEVATE LEGS ABOVE LEVEL OF HEART WHILE AT REST. ENCOURAGE AMBULATION 3-5x/day INCREASING TOLERATES, WHILE AVOID EXTREMES IN TEMPERATURE FREQUENCY: RN TO OPEN THE PATIENT WITHIN 24 HOURS OF DISCHARGE FROM REHAB WITH TELEHEALTH INSTALLED AT [facility] [place] TO VISIT 2-3 X A WEEK FOR 4 WEEKS ESTABLISHED BY PATIENT NEEDS. LABORATORY: CBC, CMP TO BE DRAWN PER REHAB PROTOCOL, (RAN STAT) FAX RESULTS TO [phone]. TELEHEALTH PARAMETERS: WEIGHT: NOTIFY MD OF WEIGHT GAIN OF 2 LBS IN 24 HOURS OR 5 LBS IN ONE WEEK HR: NOTIFY MD OF HR <55 BPM OR HR>100 BPM BP: NOTIFY MD IF BP <90/55 OR BP>140/100 O2 SAT: NOTIFY MD IF PO2<93% ON ROOM AIR SEND TELEHEALTH REPORT TO CIVIL DRAFTER AND CARDIOVASCULAR SURGEON THE FIRST WEEK OF CARE AND THEN BI-WEEKLY. PLEASE ADDITIONALLY COMMUNICATE ANY ABNORMALS AND NEW FINDINGS TO THE SURGEONS OFFICE. Patient Condition at Discharge: Stable Plan - Discharge Summary Discharge Rx Participant: No New Discharge Prescriptions: New Aspirin 81 mg PO DAILY chew Amiodarone [Cordarone] 200 mg PO DAILY 7 Days tab Sodium Chloride 0.65% Nasal [Deep Sea (Saline)] 2 spray NASAL QID PRN spray PRN Reason: Congestion Bisacodyl [Dulcolax] 10 mg RECTAL DAILY PRN supp PRN Reason: Constipation Apixaban [Eliquis] 2.5 mg PO BID tablet Tamsulosin [Flomax] 0.4 mg PO DAILY cap.er.24h Fluticasone Nasal Rankin [Flonase Nasal Rankin] 2 spray EA NOSTRIL DAILY PRN spr PRN Reason: Allergy Symptoms Loperamide [Imodium] 2 mg PO QID PRN cap PRN Reason: Diarrhea Insulin Detemir (Levemir) [Levemir] 38 unit SQ DAILY@0700 syr Lidocaine 5% Patch [Lidoderm 5% Patch] 1 patch TOPICAL DAILY patch Baclofen [Lioresal] 5 mg PO QID PRN tab PRN Reason: Muscle Spasm Atorvastatin [Lipitor] 40 mg PO DAILY tab Metoprolol Tartrate [Lopressor] 25 mg PO TID tab INSULIN ASPART (NovoLOG) [NovoLOG (formulary)] 5 unit SQ AC-TID vial INSULIN ASPART (NovoLOG) [NovoLOG (formulary)] 0 unit SQ [id number] vial Midodrine [ProAmatine] 5 mg PO AC-TID tab Pantoprazole [Protonix] 40 mg PO AC-BRKFST tablet.dr Acetaminophen Tab [Tylenol] 1,000 mg PO Q6HR PRN tab PRN Reason: Fever And/ Or Pain Allopurinol [Zyloprim] 100 mg PO BID tab Continue Omeprazole [PriLOSEC] 20 mg PO DAILY Calcium Carbonate/Vitamin D3 [Calcium 600-Vit D3 400 Tablet] 1 tab PO BID Discontinued Insulin Glargine,Hum.rec.anlog [Lantus Solostar] 56 unit SQ QAM Metoprolol Tartrate [Lopressor] 100 mg PO BID Furosemide [Lasix] 40 mg PO BID Isosorbide Mononitrate ER [Imdur] 30 mg PO BID Losartan [Cozaar] 50 mg PO DAILY Insulin Aspart [NovoLOG Flexpen] 18 units SQ AC-TID Hydrochlorothiazide 12.5 mg PO DAILY Atorvastatin [Lipitor] 40 mg PO HS Nitroglycerin Sl Tabs [Nitrostat] 0.4 mg SUBLINGUAL Q5M PRN PRN Reason: Chest Pain Metoprolol Tartrate [Lopressor] 50 mg PO DAILY@1200 Apixaban [Eliquis] 2.5 mg PO BID Allopurinol [Zyloprim] 100 mg PO BID Turmeric Root Extract [Turmeric] 1,000 mg PO DAILY Tamsulosin HCl [Flomax] 0.4 mg PO DAILY Magnesium 400 mg PO DAILY Dulaglutide [Trulicity] 1.5 mg SQ WEEKLY Colchicine 0.6 mg PO DAILY Discharge Medication List Calcium Carbonate/Vitamin D3 [Calcium 600-Vit D3 400 Tablet] 1 tab PO BID 12/09/14 [History] Omeprazole [PriLOSEC] 20 mg PO DAILY 12/09/14 [History] Acetaminophen Tab [Tylenol] 1,000 mg PO Q6HR PRN tab 04/10/19 [Rx] Allopurinol [Zyloprim] 100 mg PO BID tab 04/10/19 [Rx] Amiodarone [Cordarone] 200 mg PO DAILY 7 Days tab 04/10/19 [Rx] Apixaban [Eliquis] 2.5 mg PO BID tablet 04/10/19 [Rx] Aspirin 81 mg PO DAILY chew 04/10/19 [Rx] Atorvastatin [Lipitor] 40 mg PO DAILY tab 04/10/19 [Rx] Baclofen [Lioresal] 5 mg PO QID PRN tab 04/10/19 [Rx] Bisacodyl [Dulcolax] 10 mg RECTAL DAILY PRN supp 04/10/19 [Rx] Fluticasone Nasal Rankin [Flonase Nasal Rankin] 2 spray EA NOSTRIL DAILY PRN spr 04/10/19 [Rx] INSULIN ASPART (NovoLOG) [NovoLOG (formulary)] 0 unit SQ [id number] vial 04/10/19 [Rx] INSULIN ASPART (NovoLOG) [NovoLOG (formulary)] 5 unit SQ AC-TID vial 04/10/19 [Rx] Insulin Detemir (Levemir) [Levemir] 38 unit SQ DAILY@0700 syr 04/10/19 [Rx] Lidocaine 5% Patch [Lidoderm 5% Patch] 1 patch TOPICAL DAILY patch 04/10/19 [Rx] Loperamide [Imodium] 2 mg PO QID PRN cap 04/10/19 [Rx] Metoprolol Tartrate [Lopressor] 25 mg PO TID tab 04/10/19 [Rx] Midodrine [ProAmatine] 5 mg PO AC-TID tab 04/10/19 [Rx] Pantoprazole [Protonix] 40 mg PO AC-BRKFST tablet. 04/10/19 [Rx] Sodium Chloride 0.65% Nasal [Deep Sea (Saline)] 2 spray NASAL QID PRN spray 04/10/19 [Rx] Tamsulosin [Flomax] 0.4 mg PO DAILY cap.er.24h 04/10/19 [Rx] Follow up Appointment(s)/Referral(s): Suki Hinds MD [STAFF PHYSICIAN] - 1 Week (Please make appointment upon discharge from [facility].) Daphne Hurst MD [STAFF PHYSICIAN] - 05/01/19 10:15 am Erasmo Guevara MD [Primary Care Provider] - 1 Week (Please make appointment upon discharge from [facility].) Momo Menard DO [Doctor of Osteopathic Medicine] - 1 Week (Please make appointment upon discharge from [facility].) Patient Instructions/Handouts: Sternal Precautions (GEN), CABG (Coronary Artery Bypass Graft) (DC) Activity/Diet/Wound Care/Special Instructions: CONSULTATIONS AT [facility]: 1. Dr. Hinds from cardiology 2. Dr. Menard from pulmonology 3. Dr. Guevara for medical management DISCHARGE INSTRUCTIONS: 1. No driving for 4 weeks, or until physician gives their ok. 2. The patient should sleep in their own bed, no medical bed needed. 3. Stairs are not an issue. If the bedroom is upstairs, it is advised that the patient go up at night and down in the morning for the first week. Go slowly, using handrail and take 1 step at a time. 4. YANG hose are to be worn for 30 days or until physician discontinues. 5. Heart hugger is to be worn 100% of the time until physician discontinues.(except when showering) 6. No lifting, pushing, or pulling more than 10 pounds for 12 weeks. The physician will advise of any restriction changes. 7. The patient is expected to continue the prescribed walking program. 8. Continue pain control per as needed orders. 9. Continue with incentive spirometry and splinting/heart hugger until otherwise directed by the physician. 10. Must shower daily using liquid antibacterial soap and a separate white washcloth for each individual incision. 11. Routine sternal incision care. No powders, lotions, ointments on incisions. 12. Please call surgeon/MALT SPECIFICATIONS CONTROL ASSISTANT for temp greater than 101 F or purulent drainage from incisions. 13. All prescriptions given by surgeon for 30 days. Refills need to be filled through fresh foods technician/primary care physician. 14. A Red armband has been placed on the patient. It should be worn for 30 days post surgery and will be removed by the cardiac surgeons. If an ER visit is ne cessary, please make sure the number on the Red armband is called. 15. ABSOLUTELY NO NARCOTICS. If narcotics are felt to be needed for pain control, please call cardiac surgeon or MALT SPECIFICATIONS CONTROL ASSISTANT first. 17. Avoid nephrotoxic agents, the patient will not be discharged on an PATTI inhibitor or ARB at this time due to his elevation in BUN and creatinine. We will monitor this on an outpatient basis. [facility]/HOME HEALTH SERVICES TO PROVIDE: RN SKILLED HOME CARE SERVICES FOR POST-OP SURGICAL PATIENTS WITH THE FOLLOWING: Coronary Artery Bypass Surgery (CABG), Mitral Valve Replacement/Repair ( MVR), Aortic Valve Replacement/Repair (AVR) RN TO CONTINUE EDUCATION FROM ``ROAD TO A HEALTH HEART PATIENT EDUCATION MANUAL (GIVEN TO PATIENT IN THE HOSPITAL) MEDICATION RECONCILIATION WITH EDUCATION NEEDED ON FIRST HOME VISIT EMPHASIZE IMPORTANCE OF WEARING BREAST SUPPORT/HEART HUGGER ENCOURAGE USE OF INCENTIVE SPIROMETER 10 X EVERY HOUR WHILE AWAKE ENCOURAGE UTILIZATION OF LOWER EXTREMITY COMPRESSION STOCKINGS/YANG HOSE and ELEVATE LEGS ABOVE LEVEL OF HEART WHILE AT REST. ENCOURAGE AMBULATION 3-5x/day INCREASING TOLERATES, WHILE AVOID EXTREMES IN TEMPERATURE FREQUENCY: RN TO OPEN THE PATIENT WITHIN 24 HOURS OF DISCHARGE FROM REHAB WITH TELEHEALTH INSTALLED AT [facility] [place], RN TO VISIT 2-3 X A WEEK FOR 4 WEEKS ESTABLISHED BY PATIENT NEEDS. LABORATORY: CBC, CMP TO BE DRAWN PER REHAB PROTOCOL, (RAN STAT) FAX RESULTS TO [phone]. TELEHEALTH PARAMETERS: WEIGHT: NOTIFY MD OF WEIGHT GAIN OF 2 LBS IN 24 HOURS OR 5 LBS IN ONE WEEK HR: NOTIFY MD OF HR <55 BPM OR HR>100 BPM BP: NOTIFY MD IF BP <90/55 OR BP>140/100 O2 SAT: NOTIFY MD IF PO2<93% ON ROOM AIR SEND TELEHEALTH REPORT TO CIVIL DRAFTER AND CARDIOVASCULAR SURGEON THE FIRST WEEK OF CARE AND THEN BI-WEEKLY. PLEASE ADDITIONALLY COMMUNICATE ANY ABNORMALS AND NEW FINDINGS TO THE SURGEONS OFFICE. Discharge Disposition: OTHER INSTITUTION NOT DEFINED
[2019-04-10] MEDS ORDERED: INSULIN ASPART (NovoLOG) 100 UNIT/ML VIAL SQ SCH (12:30)
[2019-04-10 12:44] LABS: Glucose,Whole Blood 215 mg/dL (75-99)
--- NOTE | 2019-04-10 14:12 | P.PN ---
Subjective Progress Note Date: 04/10/19 This is a 73-year-old male patient of Dr. Guevara with past medical history for coronary artery disease, paroxysmal atrial fibrillation on eliquis, diabetes mellitus type II insulin requiring with diabetic neuropathy, chronic kidney disease, kidney stones, COPD, obstructive sleep apnea with CPAP, hyperlipidemia, hypertension, and rheumatoid arthritis and cirrhotic arthritis, gout, benign prostatic hypertrophy. His primary care physician is Dr. Guevara he follows with Dr. SANAM Hinds as his director health. He had a heart catheterization done in 2005 that showed moderate disease involving the LAD and diagonal was mild involvement patient had some irregular lesion of the circumflex. He was seen at [facility] for chest pain and non-ST elevated [place] 2010. At that time, his heart catheterization revealed an acutely occluded right coronary artery, significant disease in the moderate size third obtuse marginal branch with moderate disease in the LAD and left circumflex. Ejection fraction was 3540 percent. He underwent successful stenting of the distal RCA. Later in his room, patient developed ventricular fibrillation and was quickly resuscitated and underwent heart catheterization and underwent angioplasty and stenting of the PLV branch of the right coronary artery. On 09/14/2010, patient underwent a single chamber cardioverter defibrillator implantation. His echoca rdiogram revealed mild pulmonary hypertension, ejection fraction 40% at that time. In 2014 he underwent heart catheterization finding 45% proximal right coronary artery stenosis and significant mid LAD lesion which underwent PTCA and stenting of the mid LAD. Patient's also gives history of a septic knee joint needing washout which was done at [facility] at that time patient developed atrial fibrillation in the postop period. He also had a run of V. tach for which his AICD fired. Ever since that episode of sepsis, patient has had chronic kidney disease. Regarding his diabetes, he follows with Dr. Yoanna Mccormick. He is currently on Trulicity 1.5mg weekly, Lantus 56 units in the morning and recently changed to 18 units of NovoLog with meals. His last hemoglobin A1c was 7.4 in December at the [place] [facility]. Regarding rheumatoid arthritis and psoriatic arthritis, patient follows with Dr. Shelton. In the past he has been on methotrexate, Enbrel and Humira. He was recently on Ilaris but this was stopped when he started having cardiac problems as there is concern for arrhythmia. 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 The patient have follow-up in the cardiology office in December of this year and underwent a Lexiscan stress test that did not demonstrate any ischemia. Over the past 3-4 weeks she has had intermittent substernal chest pain with radiation to his arms. He was recommended for heart catheterization which was completed yesterday that found proximal LAD stenosis 60%, mid LAD stenosis 30%, circumflex stenosis 90% and RCA stenosis 60. Cardiothoracic surgery was consulted for recommendations regarding CABG versus stenting. Carotid ultrasound revealed mild plaque bilateral bifurcations but no significant stenosis. Chest x-ray reveals no acute cardiopulmonary process. Underlying COPD. patient has been evaluated by cardiothoracic surgery. Plan for tomorrow is a repeat heart catheterization to further evaluate LAD. 03/26: Patient underwent heart catheterization today with Dr. SANAM Hinds finding significant lesion in the proximal LAD and area of 2.6 mm2 also within the left main and heavy circumferential desiccation lesion in the area of 3.2 mm2. Both were deemed significant and requires bypass surgery. The patient is seen today while in the recovery area. He denies having any chest pain or shortness of breath at this time. Blood sugars will need to be well-controlled and we will make arrangements for Levemir to be 30 units in the morning and 40 at bedtime. 03/27: The patient complains of nasal congestion since he had his procedure yesterday. We will add Flonase. Regarding blood sugars nighttime blood sugar remains quite elevated and we will make additional changes to his insulins by adding NovoLog scheduled 3 units with each meal and increase nighttime Levemir to 45 units. He is scheduled for open heart on Saturday. 03/28: Patient is resting comfortably in bed without any acute distress. Patient has no complaints at this time. Patient did not receive his Levemir last night due to his blood sugar being 112. Patient's blood sugar was elevated in 150s this morning due to missing the dose of Levemir. Patient is scheduled for open heart surgery on Saturday. 03/29: Patient is sitting up in bed with at the bedside. Patient is in no acute distress. Patient has no complaints or concerns at this time. He slept well last night. Patient was given his Levemir last night his blood sugar this morning was 120. Patient is waiting to have open heart surgery on Saturday. Questions were answered. 03/30: Patient will be going for open heart surgery today we will be back in ICU on the respirator and insulin drip. 03/31: Patient is off mechanical ventilation sitting in his chair less pain and discomfort still have chest tube complaining of mild chest pain from his surgery but no other major complaint. 04/01: Patient is doing much better most of his tube out's 1 getting catheter was removed, blood sugar is much better pulse rate is running in the 60s and 70s, patient is hemodynamically stable no transfusion done last 24 hours. 04/02: Blood sugars are stable but he is still on insulin drip which we will transition to Levemir 40 units this morning, discontinue the insulin drip, start NovoLog 10 units with meals along with scale every 4 hours. Patient is complaining of back pain and neck pain. He has been tried on Lidoderm cream without improvement and now lidocaine patch. We will add in baclofen as needed. All chest tubes and Cordis out today. Uribe catheter remained for retention and patient has been started back on Flomax. Consultation In place for Dr. Haji. Patient encouraged to increase ambulation. 04/03: Patient remains in the intensive care unit. 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 Repeat echocardiogram has been ordered by cardiology. Back and neck pain appeared to be improved from yesterday. He has had marginal urine output and has received fluid boluses. Due to hypotension, midodrine added, Norvasc discontinued. IV Lasix 60 mg 1 dose was ordered for today. Uribe remains in place and patient continued on Flomax. Consult was added for nephrology regarding acute kidney injury. Repeat blood work today reveals white count of 15.9, hemoglobin 8.4, platelet count 127. BUN 68 and creatinine 3.15. Blood sugars are running between 178 and 211. We are increasing Levemir to 65 units which will start tomorrow and increasing NovoLog with meals to 22 units 3 times daily. Patient is continued on NovoLog scale. Dr. Haji consult is esha yang as he is not available. 04/04: Patient remains in intensive care unit, his sitting in the chair he appears a bit weaker today his hemoglobin is is down to 7.6, he had an episode of low sugar is not eating much adjusted his insulin regimen to Levemir 45 units in the morning as well as decreasing his Humalog to 12 units plus scale with meals. Patient continues to be somewhat short of breath, he continues to have shallow breathing, he is using incentive spirometer on and off, he is generally weak he will require subacute rehabilitation versus inpatient rehabilitation. 04/05: Patient is sitting up in a chair his feeling fatigued today he is having more diarrhea, we will check his stool for C. diff, he has episode of hyperglycemia yesterday subsequently we'll decrease his Levemir to 34 units in the morning along with 50% of his Humalog if his not eating greater than 50% of his meal and to hold if is less than 100, patient suffered from Odynophagia and he does have significant thrush we will start him on nystatin swish and swallow 5 mL before each meal and at bedtime, this was discussed with the nursing staff at the bedside. 04/06: C. difficile toxin came back negative. He received 1 dose of Imodium yesterday. Repeat lab work this morning reveals WBC 12.7, hemoglobin 7.5 plat elet count 197. Sodium 133, potassium 3.7, chloride 101, CO2 18, BUN 93 and creatinine 3.02. Blood sugars running between 97 and 137 following adjustments to insulins. Patient has been afebrile, heart rate 75, blood pressure 121/56, pulse ox 97%. 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 He is currently on amiodarone oral, Lopressor and eliquis. Patient is reaching 750 ml on incentive spirometry. He is eating an approximate 75% of most of his meals. Yesterday, patient was started on Lasix 60 mg IV every 12 hours and Zaroxolyn 5 mg daily. Weight is down 3-1/2 kg from yesterday. Uribe catheter is in place for retention. He has been seen by Dr. Haji and appears to be a good candidate for inpatient rehab. Repeat chest x-ray reveals mild improved pulmonary vascular congestion with stable small left pleural effusion, trace right pleural effusion and bibasilar airspace disease. Patient states that he did not sleep well last night. He is also complaining of lower abdominal pain and states he did not pass any gas this morning. Uribe cath remains in place. 04/07: Patient remains in intensive care unit. He states he is feeling better today. His appetite is a little better. Has decreased lower extremity edema. He complains of dry mouth. He is passing gas. He has been afebrile, heart rate 88, blood pressure 114/57, pulse ox 95% on room air. Repeat lab work reveals a white count of 16.5, hemoglobin 7.5, platelet count 218. BUN 89 creatinine 2.96, sodium 133, potassium 3.9, chloride 96, CO2 24. Blood sugars running between 80 and 114. Magnesium 2.5. Uribe catheter remains in place. He is currently on Lasix 40 mg IV every 12 hours. 04/08: Patient remains in intensive care unit. Lasix and Zaroxolyn has been discontinued. Patient had sudden onset of diarrhea return with abdominal cramping. Fecal management system has been placed. Hemoglobin has dropped some 0.1. Stool for occult blood is positive. Blood pressure is on the lower side 91/54-115/59. Pulse ox 94% on room air. Patient was in atrial fibrillation yesterday and currently in a sinus rhythm. Patient is complaining of soreness in his buttocks from sitting. 04/09: Patient remains in the intensive care unit. He states his diarrhea is less today. Plan is for fecal management system to be removed today. C. difficile toxin by PCR was not detected. Stool for occult blood was positive and rectal fair and negative. Repeat lab work revealed a hemoglobin of 6.9 this morning and patient received 1 unit of packed RBC with repeat hemoglobin of 8.2. WBC 13, platelet count 281. Sodium 134, potassium 4.1, chloride 98, CO2 24, BUN 76 and creatinine 2.34. Blood sugars are running 128-201. Levemir will be increased to 38 units. Patient has been seen by urology regarding urinary retention. Plan is to continue Flomax at current dose and attempt another voiding trial today. If patient is not successful, he will be discharged with catheter. He may have another voiding trial in 1 week. Blood pressure continues to be on the lower side. When patient goes to [facility] inpatient rehab, patient will be followed by Dr. Smith. 04/10: Patient is starting to feel a little stronger today. He did have his Uribe removed yesterday and replaced due to retention and no draining blood. He complains of some lower abdominal gas pains and passing gas but no diarrhea. Blood sugars are now on the low side and insulin will again be adjusted and cardiothoracic surgery has been updated regarding this. Patient will be transferred to [facility] today once all arrangements are completed. Medicine will continue to follow the patient in the inpatient rehab unit. Review of systems: CONSTITUTIONAL: Overweight no acute respiratory distress, appears fatigued, denies fever, denies chills. EYES: No icterus sclerae, no conjunctivitis. EARS, NOSE, MOUTH, THROAT, and FACE: No blurred vision, no sore throat. RESPIRATORY: Mild shortness of breath no cough wheezes. CARDIOVASCULAR: Denies chest pain and angina with mild shortness of breath pos itive PND and orthopnea. GASTROINTESTINAL: deniesAbd pain, Nausea or vomiting, denies diarrhea or c onstipation, No GI Bleed, no distention or masses. GENITOURINARY: Negative for Hematuria or UTI, no kidney stones. Reports retention INTEGUMENT/BREAST: Negative for any muscular injury with mild osteoarthritis. HEMATOLOGIC/LYMPHATIC: Negative for bleed or purpura. MUSCULOSKELTAL: Multiple muscle and tendon involvement generalized arthralgia and myalgia. Reports neck pain. Reports lumbar back pain NEURLOGICAL: No LOC, Sz or syncope, blurred vision dizziness or abnormality. BEHAVIORAL/PSYCH: Negative. ENDOCRINE: Negative. Objective - Vital Signs Vital signs: Vital Signs Temp 98.5 F 04/10/19 04:00 Pulse 88 04/10/19 04:00 Resp 18 04/10/19 04:00 BP 124/88 04/10/19 04:00 Pulse Ox 93 L 04/10/19 04:00 Intake & Output 04/09/19 04/10/19 04/10/19 18:59 06:59 18:59 Intake Total 682 Output Total 1605 1100 Balance -923 -1100 Weight 108.2 kg 113.5 kg Intake: Oral 372 Blood Product 310 Rc As-1 Unit 310 [id number] Output: Urine 1405 1100 Uretheral (Uribe) 600 Stool 200 Other: Voiding Method Indwelling Catheter Indwelling Catheter # Voids 0 0 ABP, PAP, CO, CI - Last Documented Arterial Blood Pressure 116/50 Pulmonary Artery Pressure 28/11 Cardiac Output 7.4 Cardiac Index 3.4 - Exam General Appearance: Alert, cooperative, no distress, appears stated age. Patient is sitting up in a chair and appears to be in no acute distress. Neck HEENT: Supple, no lymphadenopathy, no thyroid enlargement, no carotid bruits. Lungs: Decrease breath some bilateral. Chest Wall: Incision from his surgery with dressing in place Heart: regular rate and rhythm, S1, S2 normal, no murmur, rub or gallop. Back: Symmetric, no curvature, ROM normal, no CVA tenderness. Abdomen: Soft, non-tender, bowel sounds active all four quadrants, no masses, no organomegaly. Fecal management system in place, Uribe catheter in place draining bloody urine. Extremities: Trace edema. Pulses: 2+ and symmetric. Skin: Skin color, texture, tugor normal, no rashes or lesions. Neurologic: Alert oriented x3 cranial nerves II through XII intact, no motor deficit, no abnormal balance or gait. Generalized weakness noted - Labs CBC & Chem 7: 04/10/19 05:35 04/10/19 05:35 Labs: Abnormal Lab Results - Last 24 Hours (Table) 04/09/19 04/09/19 04/09/19 Range/Units 07:40 12:02 12:06 WBC 13.0 H (3.8-10.6) k/uL RBC 2.78 L (4.30-5.90) m/uL Hgb 8.2 L (13.0-17.5) gm/dL Hct 25.1 L (39.0-53.0) % RDW 15.9 H (11.5-15.5) % Sodium (137-145) mmol/L BUN (9-20) mg/dL Creatinine (0.66-1.25) mg/dL Glucose (74-99) mg/dL POC Glucose (mg/dL) 180 H (75-99) mg/dL Crossmatch See Detail 04/09/19 04/09/19 04/09/19 Range/Units 12:06 16:33 20:31 WBC (3.8-10.6) k/uL RBC (4.30-5.90) m/uL Hgb (13.0-17.5) gm/dL Hct (39.0-53.0) % RDW (11.5-15.5) % Sodium 134 L (137-145) mmol/L BUN 76 H (9-20) mg/dL Creatinine 2.34 H (0.66-1.25) mg/dL Glucose 164 H (74-99) mg/dL POC Glucose (mg/dL) 150 H 186 H (75-99) mg/dL Crossmatch 04/10/19 04/10/19 04/10/19 Range/Units 01:08 05:35 05:35 WBC 11.2 H (3.8-10.6) k/uL RBC 2.60 L (4.30-5.90) m/uL Hgb 7.8 L (13.0-17.5) gm/dL Hct 23.4 L (39.0-53.0) % RDW 16.0 H (11.5-15.5) % Sodium 133 L (137-145) mmol/L BUN 79 H (9-20) mg/dL Creatinine 2.36 H (0.66-1.25) mg/dL Glucose 103 H (74-99) mg/dL POC Glucose (mg/dL) 107 H (75-99) mg/dL Crossmatch Assessment and Plan Plan: 1. Triple-vessel coronary artery disease: Post 5 vessel bypass surgery continue aggressive pulmonary toileting. 2. History of non-ST elevated myocardial infarction, coronary artery disease and multiple stents. 5 vessel bypass surgery 3. Diabetes mellitus type 2 with end organ damage, uncontrolled with hyperglycemia. Levemir to 38 units in the morning, continue NovoLog decreased to 5 units units with meals and continue NovoLog scale, also hold Humalog for BGM was in 100. 4. Chronic atrial fibrillation. Continue oral amiodarone, Lopressor and eliquis. 5. Hypertension. Continue Lopressor 6. Hyperlipidemia. Continue atorvastatin 40 mg daily 7. Chronic kidney disease. Monitor renal function and avoid nephrotoxic agents. 8. Obstructive sleep apnea with home CPAP. 9. Diarrhea. Clostridium difficile negative. 10. History of ventricular tachycardia and cardiomyopathy status post AICD, stable 11. Gastroesophageal reflux disease. Continue Protonix 12. Acute kidney injury with chronic kidney disease stage 3. Avoid nephrotoxic agents. 13. Benign prostatic hypertrophy. Continue Flomax. Urology consult appreciated. 14. Thrush. 15. Medical debility. Physical therapy evaluation likely will require subacute rehabilitation or inpatient rehab. 16. Postoperative atrial fibrillation and typical atrial flutter, expected. 17. Postoperative anemia, expected. Discharge plan: inpatient rehab at [facility] Impression and plan of care have been directed as dictated by the signing physician. Leigh Bailey nurse practitioner acting as scribe for signing physician.
[2019-04-11] MEDS ORDERED: AMIODARONE 200 MG TAB PO SCH (09:00)
== END 2019-04-10 14:50 | DRG 233 ==
LOC: CATHCVL 06:49 → 1SOBS 13:47 → CATHCVL 03-25 15:10 → 1SOBS 03-26 08:16 → 3SCARD 03-26 11:30 → 2SICU 03-30 06:58 → 3SCARD 04-09 18:41
PROVIDERS: ADMIT Surgery; ATTEND Surgery
PROC: 4A023N7 Measurement of Cardiac Sampling and Pressure, Left Heart, Percutaneous Approach (ICD-10-PCS; principal; 2019-03-24 10:20)
PROC: B2111ZZ Fluoroscopy of Multiple Coronary Arteries using Low Osmolar Contrast (ICD-10-PCS; principal; 2019-03-24 10:20)
PROC: B2111ZZ Fluoroscopy of Multiple Coronary Arteries using Low Osmolar Contrast (ICD-10-PCS; 2019-03-26 08:55)
PROC: B241ZZ3 Ultrasonography of Multiple Coronary Arteries, Intravascular (ICD-10-PCS; 2019-03-26 08:55)
PROC: 02100AW Bypass Coronary Artery, One Artery from Aorta with Autologous Arterial Tissue, Open Approach (ICD-10-PCS; 2019-03-30 08:00)
PROC: 02570ZK Destruction of Left Atrial Appendage, Open Approach (ICD-10-PCS; 2019-03-30 08:00)
PROC: 06BP4ZZ Excision of Right Saphenous Vein, Percutaneous Endoscopic Approach (ICD-10-PCS; 2019-03-30 08:00)
PROC: 03BC4ZZ Excision of Left Radial Artery, Percutaneous Endoscopic Approach (ICD-10-PCS; 2019-03-30 08:00)
PROC: 021209W Bypass Coronary Artery, Three Arteries from Aorta with Autologous Venous Tissue, Open Approach (ICD-10-PCS; 2019-03-30 08:00)
PROC: 5A1221Z Performance of Cardiac Output, Continuous (ICD-10-PCS; 2019-03-30 08:00)
PROC: 02100Z9 Bypass Coronary Artery, One Artery from Left Internal Mammary, Open Approach (ICD-10-PCS; 2019-03-30 08:00)
DX: I25.110 Atherosclerotic heart disease of native coronary artery with unstable angina pectoris (principal); N17.0 Acute kidney failure with tubular necrosis; D62 Acute posthemorrhagic anemia; I13.0 Hypertensive heart and chronic kidney disease with heart failure and stage 1 through stage 4 chronic kidney disease, or unspecified chronic kidney disease; I48.11 Longstanding persistent atrial fibrillation; I48.92 Unspecified atrial flutter; J98.11 Atelectasis; B37.0 Candidal stomatitis; D69.59 Other secondary thrombocytopenia; E11.22 Type 2 diabetes mellitus with diabetic chronic kidney disease; E11.40 Type 2 diabetes mellitus with diabetic neuropathy, unspecified; E66.01 Morbid (severe) obesity due to excess calories; E78.5 Hyperlipidemia, unspecified; G47.33 Obstructive sleep apnea (adult) (pediatric); I25.2 Old myocardial infarction; I25.5 Ischemic cardiomyopathy; I25.82 Chronic total occlusion of coronary artery; I27.20 Pulmonary hypertension, unspecified; J44.9 Chronic obstructive pulmonary disease, unspecified; J98.4 Other disorders of lung; K21.9 Gastro-esophageal reflux disease without esophagitis; K59.00 Constipation, unspecified; L40.50 Arthropathic psoriasis, unspecified; M06.9 Rheumatoid arthritis, unspecified; M10.9 Gout, unspecified; M19.90 Unspecified osteoarthritis, unspecified site; M53.3 Sacrococcygeal disorders, not elsewhere classified; N18.3 Chronic kidney disease, stage 3 (moderate); N20.0 Calculus of kidney; N32.0 Bladder-neck obstruction; N40.1 Benign prostatic hyperplasia with lower urinary tract symptoms; R33.8 Other retention of urine; Z79.01 Long term (current) use of anticoagulants; Z79.4 Long term (current) use of insulin; Z79.82 Long term (current) use of aspirin; Z79.899 Other long term (current) drug therapy; Z82.49 Family history of ischemic heart disease and other diseases of the circulatory system; Z86.711 Personal history of pulmonary embolism; Z86.73 Personal history of transient ischemic attack (TIA), and cerebral infarction without residual deficits; Z86.79 Personal history of other diseases of the circulatory system; Z87.442 Personal history of urinary calculi; Z95.5 Presence of coronary angioplasty implant and graft; Z95.810 Presence of automatic (implantable) cardiac defibrillator; Z99.89 Dependence on other enabling machines and devices; Z88.2 Allergy status to sulfonamides; Z88.8 Allergy status to other drugs, medicaments and biological substances; Z77.22 Contact with and (suspected) exposure to environmental tobacco smoke (acute) (chronic); Z68.39 Body mass index [BMI] 39.0-39.9, adult; R19.7 Diarrhea, unspecified; I95.9 Hypotension, unspecified; E11.65 Type 2 diabetes mellitus with hyperglycemia
CPT/HCPCS: 36410; 36415; 71045; 71046; 76937; 80048; 80051; 80053; 80061; 80074; 81001; 81003; 82272; 82330; 82565; 82805; 83036; 83630; 83735; 84443; 84520; 85025; 85027; 85520; 85610; 85730; 86850; 86891; 86900; 86901; 86920; 87045; 87046; 87070; 87086; 87324; 87493; 92978; 93306; 93454; 93458; 93880; 93922; 93970; 94150; 94640

== ENCOUNTER 2019-05-01 08:08 | Emergency (ER) | payer MEDICARE ==
[2019-05-01] MEDS ORDERED: PIPERACILLIN-TAZOBACTAM 3.375 GM in SODIUM CHLORIDE 0.9% 100 ML IVPB STA (08:36)
[2019-05-01] MEDS ORDERED: MORPHINE SULFATE 4 MG/ML SYRINGE IVP STA (08:36)
--- NOTE | 2019-05-01 08:37 | ED ---
Skin/Abscess/FB HPI - General Source: patient Mode of arrival: wheelchair Limitations: no limitations <Anne Paula - Last Filed: 05/01/19 12:33> <Momo Colon - Last Filed: 05/01/19 16:54> - General Chief complaint: Skin/Abscess/Foreign Body Stated complaint: Rectal abcess Time Seen by Provider: 05/01/19 08:17 - History of Present Illness Initial comments: 73-year-old male presenting today for chief complaint of rectal pain. Patient states that he had a coronary artery bypass surgery 03/30/2019, the day following he had diarrhea and a fecal management system placed in the ICU. He states that the developed ulcerations/abscess in the rectum from this and has been following surgery. Patient states that he had had rectal pain x 4 weeks. He states today he did have a formed but extremely painful bowel movement that had a dark spinach like thick "thing" in it. Denies bright red blood, or black tarry stoo ls. Patient is currently on Levoquin. Patient denies vomiting, nausea, chest pain, SOB, fevers, flu like symptoms. Patient denies any other complaints. (Anne Paula) - Related Data Home Medications Medication Instructions Recorded Confirmed Apixaban [Eliquis] 2.5 mg PO BID 05/01/19 05/01/19 Ferrous Sulfate [Feosol] 325 mg PO Q48H 05/01/19 05/01/19 Furosemide [Lasix] 20 mg PO HS 05/01/19 05/01/19 Furosemide [Lasix] 40 mg PO DAILY 05/01/19 05/01/19 HYDROcodone/APAP 10-325MG [Elizabeth 1 tab PO Q6H PRN 05/01/19 05/01/19 10-325] Insulin Aspart [NovoLOG Flexpen] 5 units SQ AC-TID 05/01/19 05/01/19 Insulin Glargine,Hum.rec.anlog 38 unit SQ DAILY 05/01/19 05/01/19 [Lantus Solostar] Levofloxacin [Levaquin] 500 mg PO DAILY 05/01/19 05/01/19 Previous Rx's Medication Instructions Recorded Allopurinol [Zyloprim] 100 mg PO BID tab 04/10/19 Amiodarone [Cordarone] 200 mg PO DAILY 7 Days tab 04/10/19 Aspirin 81 mg PO DAILY chew 04/10/19 Atorvastatin [Lipitor] 40 mg PO DAILY tab 04/10/19 Metoprolol Tartrate [Lopressor] 25 mg PO TID tab 04/10/19 Tamsulosin [Flomax] 0.4 mg PO DAILY cap.er.24h 04/10/19 Allergies Allergy/AdvReac Type Severity Reaction Status Date / Time gabapentin AdvReac Unknown DREAMS, Verified 05/01/19 08:52 PERSONALITY CHANGES- ANGER Sulfa (Sulfonamide AdvReac Rapid Verified 05/01/19 08:52 Antibiotics) Heart Rate/Dyspnea Review of Systems ROS Other: All systems not noted in ROS Statement are negative. <Anne Paula - Last Filed: 05/01/19 12:33> ROS Other: All systems not noted in ROS Statement are negative. <Momo Colon - Last Filed: 05/01/19 16:54> ROS Statement: Those systems with pertinent positive or pertinent negative responses have been documented in the HPI. Past Medical History Past Medical History: Atrial Fibrillation, Asthma, Coronary Artery Disease (CAD), Chest Pain / Angina, Heart Failure, COPD, Diabetes Mellitus, GERD/Reflux, Hyperlipidemia, Hypertension, Myocardial Infarction (VT), Osteoarthritis (OA), Prostate Disorder, Pulmonary Embolus (PE), Renal Disease, Skin Disorder, Sleep Apnea/CPAP/BIPAP Additional Past Medical History / Comment(s): SUDDEN 2010-REVIVED AND DEFIBRILLATOR. GOUT. , PSORIASIS, [employer] AICD., STROKE BEHIND LT EYE. KIDNEY STONES. , STAGE 3 KIDNEY DISEASE., ANEMIA, BPH, VT x 4 , "Blood clot outside of my heart", BELLS PALSY, NEUROPATHY, STATES UNSTEADY GAIT- USES CANE PRN., USES C-PAP MACHINE, PSORIATIC ARTHRITIS, STATES EPISODE OF A-FIB AFTER KNEE SURGERY., STATES HE DROPPED WRENCH ON FOOT -HAS RED SPOT AND SOME PAIN., HX V-TACH., SEE CARDIOLOGY H & P., bypass Last Myocardial Infarction Date:: 12/2014 History of Any Multi-Drug Resistant Organisms: None Reported Past Surgical History: Adenoidectomy, AICD, Heart Catheterization, Heart Catheterization With Stent, Orthopedic Surgery, Tonsillectomy Additional Past Surgical History / Comment(s): BRIAN CARPAL TUNNEL, LT ROTATOR CUFF. 4 CARDIAC STENTS, (L) knee surgery WITH SEPSIS AND 2ND SURGERY., [employer] AICD Past Anesthesia/Blood Transfusion Reactions: No Reported Reaction Date of Last Stent Placement:: 12/2014 Type of Cardiac Device: AICD Device Placement Date:: 08/2010 Past Psychological History: Depression Smoking Status: Never smoker Past Alcohol Use History: None Reported Past Drug Use History: None Reported - Past Family History Father Family Medical History: Coronary Artery Disease (CAD) Additional Family Medical History / Comment(s): TRIPLE BYPASS Mother Family Medical History: Cancer, Hypertension, Pulmonary Embolus Additional Family Medical History / Comment(s): ENDOMETRIAL CANCER Daughter(s) Family Medical History: Cancer, Pulmonary Embolus <Anne Paula - Last Filed: 05/01/19 12:33> General Exam Limitations: no limitations <Anne Paula - Last Filed: 05/01/19 12:33> - General Exam Comments Initial Comments: General: The patient is awake and alert, in no distress, and does not appear acutely ill. Eye: Pupils are equal, round and reactive to light, extra-ocular movements are intact. No nystagmus. There is normal conjunctiva bilaterally. No signs of icterus. Ears, nose, mouth and throat: There are moist mucous membranes and no oral lesions. Neck: The neck is supple, there is no tenderness or JVD. Cardiovascular: There is a regular rate and rhythm. No murmur, rub or gallop is appreciated. Respiratory: Lungs are clear to auscultation, respirations are non-labored, breath sounds are equal. No wheezes, stridor, rales, or rhonchi. Gastrointestinal: Soft, non-distended, non-tender abdomen without masses or organomegaly noted. There is no rebound or guarding present. Rectal exam no external lesions, no fissures, areas of redness, fluctuance or drainage. Rectal exam revealed no obvious large thrombosed hemorrhoids. There is no evidence of fistula was palpable. No bright red blood or melena on digit light brown stool. Rectal exam was painful Musculoskeletal: Normal ROM, no tenderness. Strength 5/5. Sensation intact. Radial pulses equal bilaterally 2+. Neurological: A&O x 3. CN II-XII intact grossly, There are no obvious motor or sensory deficits. Coordination appears grossly intact. Speech is normal. Skin: Skin is warm and dry and no rashes or lesions are noted. Psychiatric: Cooperative, appropriate mood & affect, normal judgment. (Anne Paula) Course <Momo Colon - Last Filed: 05/01/19 16:54> Vital Signs 05/01/19 05/01/19 05/01/19 08:09 10:13 11:59 Temperature 97.8 F 98.6 F Pulse Rate 89 94 95 Respiratory 17 20 20 Rate Blood Pressure 109/65 100/63 117/62 O2 Sat by Pulse 98 97 97 Oximetry - Reevaluation(s) Reevaluation #1: 05/01/19 16:50 PA supervision; I did personally evaluate this case including evaluation of the imaging. The patient currently does not require any inpatient treatment. I do agree with the assessment and plan. He will follow-up (Momo Colon) Medical Decision Making - Lab Data Result diagrams: 05/01/19 08:35 05/01/19 08:35 <Anne Paula - Last Filed: 05/01/19 12:33> - Lab Data Result diagrams: 05/01/19 08:35 05/01/19 08:35 <Momo Colon - Last Filed: 05/01/19 16:54> - Medical Decision Making 18-year-old male presenting today for chief complaint of rectal pain ongoing for 4 weeks. Patient states he has had rectal pain ever since he had an ulceration that developed in his rectum from a fecal management system during a hospitalization for an open heart surgery. Patient states the pain has been per sistent now for 4 weeks. Patient states he does not feel like there is a solution. He states he is not happy with his surgeon requesting a new referral. Patient labs stable. HgB trending up, leukocytosis. Patient currently is on Levaquin. Patient has no significant findings on CT or rectal examination. Symptoms ongoing x 4 weeks. At this time I feel patient is stable for discharge with outpatient general surgery f/u. Return for increasin pain, rectal bleeding, or fever/flu like symptoms. Patient agreeable with care plan as well as discharge. DIscussed case at length adn in detail with attending who is agreeable wt care plan at this time. (Anne Paula) - Lab Data Lab Results 05/01/19 05/01/19 05/01/19 Range/Units 08:35 08:35 09:35 WBC 5.1 (3.8-10.6) k/uL RBC 3.49 L (4.30-5.90) m/uL Hgb 9.6 L D (13.0-17.5) gm/dL Hct 30.5 L (39.0-53.0) % MCV 87.6 (80.0-100.0) fL MCH 27.6 (25.0-35.0) pg MCHC 31.5 (31.0-37.0) g/dL RDW 16.0 H (11.5-15.5) % Plt Count 205 (150-450) k/uL Neutrophils % 67 % Lymphocytes % 19 % Monocytes % 8 % Eosinophils % 2 % Basophils % 1 % Neutrophils # 3.4 (1.3-7.7) k/uL Lymphocytes # 1.0 (1.0-4.8) k/uL Monocytes # 0.4 (0-1.0) k/uL Eosinophils # 0.1 (0-0.7) k/uL Basophils # 0.0 (0-0.2) k/uL Hypochromasia Slight Poikilocytosis Slight Sodium 139 (137-145) mmol/L Potassium 4.5 (3.5-5.1) mmol/L Chloride 103 (98-107) mmol/L Carbon Dioxide 26 (22-30) mmol/L Anion Gap 10 mmol/L BUN 36 H (9-20) mg/dL Creatinine 1.78 H (0.66-1.25) mg/dL Est GFR (CKD-EPI)AfAm 43 (>60 ml/min/1.73 sqM) Est GFR (CKD-EPI)NonAf 37 (>60 ml/min/1.73 sqM) Glucose 143 H (74-99) mg/dL Plasma Lactic Acid Ameya 1.0 (0.7-2.0) mmol/L Calcium 9.3 (8.4-10.2) mg/dL Total Bilirubin 1.0 (0.2-1.3) mg/dL AST 25 (17-59) U/L ALT 27 (21-72) U/L Alkaline Phosphatase 132 H (38-126) U/L Total Protein 6.5 (6.3-8.2) g/dL Albumin 3.4 L (3.5-5.0) g/dL Disposition Is patient prescribed a controlled substance at d/c from ED?: No Time of Disposition: 11:37 <Anne Paula - Last Filed: 05/01/19 12:33> <Momo Colon - Last Filed: 05/01/19 16:54> Clinical Impression: Rectal pain Disposition: HOME SELF-CARE Condition: Good Instructions (If sedation given, give patient instructions): Rectal Pain (ED) Additional Instructions: Please use medication as discussed. Please follow-up with family doctor in the next 2 days, and general surgery as discussed. Please return to emergency room if the symptoms increase or worsen or for any other concerns. Referrals: Erasmo Guevara MD [Primary Care Provider] - 1-2 days Daniel Larios DO [Doctor of Osteopathic Medicine] - 1-2 days
[2019-05-01] MEDS ORDERED: SODIUM CHLORIDE 0.9% 1,000 ML IV SCH (08:45)
[2019-05-01 09:27] LABS: Albumin 3.4 g/dL (3.5-5.0); Calcium 9.3 mg/dL (8.4-10.2); Potassium 4.5 mmol/L (3.5-5.1); Total Protein 6.5 g/dL (6.3-8.2)
[2019-05-01 09:30] LABS: Basophils % (A) 1 %; Eosinophils # (A) 0.1 k/uL (0-0.7); Eosinophils % (A) 2 %; HCT 30.5 % (39.0-53.0); Hypochromasia Slight; Lymphocytes % (A) 19 %; MCH 27.6 pg (25.0-35.0); MCHC 31.5 g/dL (31.0-37.0); MCV 87.6 fL (80.0-100.0); Mean Platelet Volume 6.8; Monocytes # (A) 0.4 k/uL (0-1.0); Monocytes % (A) 8 %; Neutrophils # (A) 3.4 k/uL (1.3-7.7); Neutrophils % (A) 67 %; Platelet Count 205 k/uL (150-450); Poikilocytosis Slight; RBC 3.49 m/uL (4.30-5.90); WBC 5.1 k/uL (3.8-10.6)
[2019-05-01 09:33] LABS: HGB 9.6 gm/dL (13.0-17.5)
[2019-05-01 10:14] VITALS: RESP 20
--- NOTE | 2019-05-01 11:16 | CT ---
EXAMINATION TYPE: CT abdomen pelvis wo con DATE OF EXAM: 05/01/2019 HISTORY: Rectal abscess, post rectal tube in ICU. Post-CABG March 30, 2019. CT DLP: 1418.4 mGycm. Automated Exposure Control for Dose Reduction was Utilized. TECHNIQUE: CT scan of the abdomen and pelvis is performed without oral or IV contrast but attempted with rectal contrast. COMPARISON: CT abdomen and pelvis June 01, 2016 FINDINGS: Within the limitations of a non-contrast study, the following observations are made. LUNG BASES: Persistent cardiomegaly with partial visualization of pacemaker leads. Partial visualizat ion of sternal wires and mediastinal clips from CABG. New small to tiny pericardial effusion. Partial visualization of new small bilateral pleural effusions. LIVER/GB: Tiny 2 mm dependent calcified gallstone image 33. Additional stable 2 mm nondependent calci fication coronal image 47. No surrounding inflammatory change. PANCREAS: Persistent fat replaced atrophy of the pancreas inferior head and uncinate process redemons trated. SPLEEN: Stable splenomegaly at 14.2 cm axial image 24. 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 KIDNEYS: Some cortical thinning both kidneys redemonstrated. Stable roughly 3 cm exophytic simple vale earing thin-walled cyst laterally mid to lower pole level right kidney. No hydronephrosis identified bilaterally. BOWEL: Patient had difficulty tolerating rectal injection per technologist. There is successful retro grade opacification to the mid transverse colon however. No suspicious small or large bowel dilatatio n is seen. Normal-appearing appendix is seen from base of cecum in the right upper quadrant. Stomach is poorly distended and thus suboptimally evaluated. Perirectal and perianal fat is preserved without suspicious fat stranding or focal fluid collection identified. Symmetric mild to moderate generalize d atrophy of the gluteal muscles. GENITAL ORGANS: No gross abnormality seen. LYMPH NODES: No greater than 1cm abdominal or pelvic lymph nodes are appreciated. OSSEOUS STRUCTURES: Moderate to severe disc space narrowing and spurring L3-L4 level. Facet arthropat hy lower lumbar levels. Mild to moderate narrowing of both hip joints. OTHER: Mild/moderate calcified plaque of the aorta extends into iliac branch vessels.. IMPRESSION: No suspicious fluid collection or abscess with particular attention to the rectum at the area of clinical concern. No bowel obstruction.
[2019-05-01 12:00] VITALS: BP 117/62; PULSE 95; TEMP 98.6
== END 2019-05-01 12:01 | disposition home or self-care (01) ==
LOC: EC 08:08
DX: K62.89 Other specified diseases of anus and rectum (principal); I48.91 Unspecified atrial fibrillation; I25.10 Atherosclerotic heart disease of native coronary artery without angina pectoris; E11.9 Type 2 diabetes mellitus without complications; I25.2 Old myocardial infarction; I11.0 Hypertensive heart disease with heart failure; I50.9 Heart failure, unspecified; G47.30 Sleep apnea, unspecified; Z79.01 Long term (current) use of anticoagulants; Z79.4 Long term (current) use of insulin; Z79.890 Hormone replacement therapy; Z79.899 Other long term (current) drug therapy; Z88.2 Allergy status to sulfonamides; Z88.8 Allergy status to other drugs, medicaments and biological substances; Z95.5 Presence of coronary angioplasty implant and graft; Z86.711 Personal history of pulmonary embolism; Z86.73 Personal history of transient ischemic attack (TIA), and cerebral infarction without residual deficits; Z95.1 Presence of aortocoronary bypass graft; Z95.810 Presence of automatic (implantable) cardiac defibrillator
CPT/HCPCS: 36415; 80053; 83605; 85025; 87040; 74176; 99284; 96365; 96375; 96361 ×3; J2543; J2270; Q9967

== ENCOUNTER → 2019-12-05 | Outpatient (CLI) | payer MEDICARE ==
--- NOTE | 2019-12-05 09:46 | CT ---
EXAMINATION TYPE: CT brain wo con DATE OF EXAM: 12/05/2019 COMPARISON: None HISTORY: Double vision when looking ahead or to the right. CT DLP: 1001.[address] of the brain was performed. The ventricles, basal cisterns and sulci overlying the cerebral convexities demonstrate mild enlargem ent. There is no evidence for intracranial hemorrhage or sulcal effacement. There is decreased attenuation about the periventricular white matter and deep white matter of both c erebral hemispheres, compatible with chronic small vessel ischemia. Differential diagnosis does inclu de demyelination. No mass effects are seen.No midline shift. Osseous calvarium is intact. If symptoms persist consider MRI. IMPRESSION: 1. Age related atrophic and chronic small vessel ischemic change without acute intracranial process s een at this time.
== END | disposition home or self-care (01) ==
LOC: RADCTMAIN 09:05
PROVIDERS: ATTEND Ophthalmology
DX: G31.1 Senile degeneration of brain, not elsewhere classified (principal); I67.82 Cerebral ischemia
CPT/HCPCS: 70450

== ENCOUNTER 2020-03-21 10:03 | Day surgery (SDC) | payer MEDICARE ==
[2020-03-18 08:52] VITALS: BMI 34.2
[~2020-03-21 10:03] MED LIST changes: -ALPRAZolam 0.25 MG TAB PO PRN; -ALPRAZolam 0.5 MG TAB PO PRN; +LACTATED RINGERS 1,000 ML IV SCH; +SODIUM CHLORIDE 0.9% 1,000 ML IV SCH; -SODIUM CHLORIDE 0.9% 1,000 ML in EMPTY BAG 1 BAG IV ONE; +ceFAZolin 1,000 MG in SODIUM CHLORIDE 0.9% IRRIGATIO 250 ML IRRIGATION ONE
[2020-03-21 10:37] LABS: Glucose,Whole Blood 160 mg/dL (75-99)
[2020-03-21 10:51] LABS: Basophils # (A) 0.1 k/uL (0-0.2); Basophils % (A) 1 %; Eosinophils # (A) 0.1 k/uL (0-0.7); Eosinophils % (A) 2 %; HCT 39.3 % (39.0-53.0); HGB 13.2 gm/dL (13.0-17.5); Lymphocytes # (A) 1.3 k/uL (1.0-4.8); Lymphocytes % (A) 23 %; MCH 30.2 pg (25.0-35.0); MCHC 33.4 g/dL (31.0-37.0); MCV 90.4 fL (80.0-100.0); Mean Platelet Volume 7.5; Monocytes # (A) 0.4 k/uL (0-1.0); Monocytes % (A) 7 %; Neutrophils # (A) 3.7 k/uL (1.3-7.7); Neutrophils % (A) 65 %; Platelet Count 109 k/uL (150-450); RBC 4.35 m/uL (4.30-5.90); RDW 14.5 % (11.5-15.5); WBC 5.7 k/uL (3.8-10.6)
[2020-03-21 10:54] VITALS: RESP 18; TEMP 97.7
[2020-03-21 10:59] LABS: Calcium 9.1 mg/dL (8.4-10.2); Potassium 4.2 mmol/L (3.5-5.1)
[2020-03-21] MEDS ORDERED: VANCOMYCIN 2,000 MG in SODIUM CHLORIDE 0.9% 250 ML IVPB STA (11:47)
[2020-03-21] MEDS ORDERED: VANCOMYCIN 2,000 MG in SODIUM CHLORIDE 0.9% 500 ML 500 ML IVPB STA (11:48)
[2020-03-21] MEDS ORDERED: fentaNYL (PF) 50 MCG/ML 2 ML AMP ONE (11:52)
[2020-03-21] MEDS ORDERED: MIDAZOLAM 2 MG/2 ML VIAL ONE (11:52)
[2020-03-21] MEDS ORDERED: PROPOFOL 10 MG/ML 20 ML VIAL IV ONE (11:52)
[2020-03-21] MEDS ORDERED: LIDOCAINE 1% INJ 10MG/ML (20 ML MDV) ONE (12:10)
[2020-03-21] MEDS ORDERED: LIDOCAINE 1% INJ 10MG/ML (20 ML MDV) SQ ONE (12:35)
[2020-03-21] MEDS ORDERED: ACETAMINOPHEN TAB 325 MG TAB PO PRN (13:34)
[2020-03-21] MEDS ORDERED: HYDROcodone/APAP 5-325MG 1 EACH TAB PO PRN (13:34)
[2020-03-21] MEDS ORDERED: ACETAMINOPHEN IV (For NPO) 1,000 MG in EMPTY BAG 1 BAG IVPB ONE (13:34)
--- NOTE | 2020-03-21 13:45 | P.EPPROC ---
- EP Procedure Note Electrophysiology Procedure Note: Cinefluoroscopy of the leads was performed He has a dual coil ICD lead in situ No fractures or breaks noted Lead screwed in the low RV septum just above the apex Plan Proceed with single chamber ICD generator change
--- NOTE | 2020-03-21 14:09 | CE ---
CARDIAC ELECTROPHYSIOLOGY REPORT Mr. Muro is a 74-year-old male patient with ischemic cardiomyopathy, history of CAD, history of inferior posterior OH and history of sustained VT and VF requiring stent defibrillation. His single-chamber ICD that was originally implanted in 2010 is at [facility]. He was brought in for a single-chamber ICD generator change. Patient brought to the EP lab in a fasting state. Written informed consent was obtained prior to the procedure. The left shoulder area was prepped and draped as per protocol; 1% lidocaine was used for local anesthesia. IV antibiotics including IV vancomycin was administered. The incision was made directly over the previous surgical site and carried down to the level of the pectoralis muscle. The old ICD generator was explanted. This was a model #D274 VRC DF1 device, serial #[id number]. The new generator implanted was Medtronic ICD cobalt VR MRI model #DVP 3D1, serial #[id number]. The leads and generator were then placed in subfascial pocket. The wound was closed in 3 layers and dressed per protocol. The ICD lead was interrogated. R-waves 9 mV, pacing impedance 356 ohms. High-voltage impedance 34 ohms (HVX 52 ohms, pacing threshold 1.25 V at 1 millisecond.) DFT testing was performed, shock and T-wave protocol was used to induce ventricular fibrillation, this was adequately and appropriately detected at least sensitivity and successfully internally defibrillated with a 10-joule shock. Charge time 1.8 seconds and shocking impedance 33 ohms. No post shock noise. The device was then programmed with VT zone 176 beats per minute, VF zone 214 beats per minute with appropriate antitachycardia pacing cardioversion, defibrillation monitor zone 150 beats per minute, long detection intervals to avoid inappropriate ICD shocks as the patient also has a history of atrial fibrillation. RESULT: Successful ICD generator change and PFT at 10 joules. MMODL / IJN: [id number] /
[2020-03-21] MEDS ORDERED: METOPROLOL TARTRATE 25 MG TAB PO SCH (16:00)
[2020-03-21 17:21] VITALS: BP 145/70; PULSE 64
[2020-03-21] MEDS ORDERED: APIXABAN 5 MG TAB PO SCH (21:00)
[2020-03-21] MEDS ORDERED: ATORVASTATIN 40 MG TAB PO SCH (21:00)
[2020-03-21] MEDS ORDERED: FUROSEMIDE 20 MG TAB PO SCH (21:00)
[2020-03-22] MEDS ORDERED: TAMSULOSIN 0.4 MG CAP.ER.24H PO SCH (09:00)
[2020-03-22] MEDS ORDERED: ASPIRIN 81 MG PO SCH (09:00)
== END 2020-03-21 17:10 | disposition home or self-care (01) ==
LOC: CATHEP 10:03
PROVIDERS: ATTEND Internal Medicine Clinical Cardiac Electrophysiology
DX: I25.5 Ischemic cardiomyopathy (principal); I25.10 Atherosclerotic heart disease of native coronary artery without angina pectoris; E78.2 Mixed hyperlipidemia; M06.9 Rheumatoid arthritis, unspecified; I10 Essential (primary) hypertension; I25.2 Old myocardial infarction; E11.9 Type 2 diabetes mellitus without complications; I48.0 Paroxysmal atrial fibrillation; E66.9 Obesity, unspecified; Z68.35 Body mass index [BMI] 35.0-35.9, adult; I47.2 Ventricular tachycardia; E78.00 Pure hypercholesterolemia, unspecified; I83.93 Asymptomatic varicose veins of bilateral lower extremities; G47.33 Obstructive sleep apnea (adult) (pediatric); M19.90 Unspecified osteoarthritis, unspecified site; Z95.810 Presence of automatic (implantable) cardiac defibrillator; Z95.5 Presence of coronary angioplasty implant and graft; Z95.1 Presence of aortocoronary bypass graft; Z79.899 Other long term (current) drug therapy; Z79.4 Long term (current) use of insulin; Z79.01 Long term (current) use of anticoagulants; Z79.82 Long term (current) use of aspirin; Z88.2 Allergy status to sulfonamides; Z86.69 Personal history of other diseases of the nervous system and sense organs; Z99.89 Dependence on other enabling machines and devices
CPT/HCPCS: 93641; 33262; 80048; 85025; C1722; J2250; J3370; J0690 ×2; J2001; J3010; J2704

== ENCOUNTER → 2021-12-15 | Outpatient (CLI) | payer OTHER ==
--- NOTE | 2021-12-15 10:35 | CT ---
EXAMINATION TYPE: CT lumbar spine wo con CT DLP: 977 mGycm, Automated exposure control for dose reduction was used. DATE OF EXAM: 12/15/2021 9:01 AM COMPARISON: CT abdomen pelvis 05/01/2019. CLINICAL INDICATION:Male, 76 years old with history of M54.59 Low back pain M79.609 pain in limb; TECHNIQUE: Multiple axial images were obtained from the midportion of T11 through the sacroiliac olman nts. Soft tissue and bone windows in coronal and sagittal planes were obtained and reviewed. FINDINGS: Alignment: There are 5 lumbar type vertebral bodies. Mild retrolisthesis of L3 on L4 without evidence of pars defects. Minimal levoscoliotic curvature of the lumbar spine. Bone: No evidence of fracture is identified. A cyst is demonstrated within the right iliac bone. Mul tilevel degenerative disc disease with vacuum disc disease, endplate sclerosis, disc space narrowing and anterior osteophytosis. This is most pronounced at L3-L4. Incidental benign vertebral hemangioma within the L2 vertebral body. Discs: T12-L1: No spinal canal or neural foraminal stenosis is identified. L1-L2: No spinal canal or neural foraminal stenosis is identified. L2-L3: No significant spinal canal or neural foraminal stenosis is identified. L3-L4: Posterior disc osteophyte complex with facet arthropathy bilaterally and right ligamentum flav um buckling contributes to mild to moderate spinal canal stenosis mild bilateral neural foraminal radhika nosis. L4-L5: Broad-based disc bulge with mild effacement of the anterior thecal sac. There is facet arthro agatha bilaterally with ligamentum flavum buckling contributing to mild spinal canal stenosis. The charissa ral foramina are patent bilaterally. L5-S1: Posterior disc osteophyte complex without significant spinal canal stenosis. There is mild sharon ateral neural foraminal stenosis. Other: Atherosclerotic calcification of the aorta and its branches. IMPRESSION: 1. No evidence of fracture of the lumbar spine. 2. Multilevel degenerative disc disease most pronounced at L3-L4 with mild to moderate spinal canal a nd mild bilateral neural foraminal stenosis. 3. Mild retrolisthesis of L3 on L4.
--- NOTE | 2021-12-19 11:37 | US ---
EXAMINATION TYPE: US arterial LE multi level DATE OF EXAM: 12/15/2021 9:33 AM CLINICAL HISTORY: M54.59 Low back pain M79.609 pain in limb. PAIN IN BILATERAL CALVES, h/o heart bypass and left radial removal Doppler Waveforms: Right: Multiphasic Left: Multiphasic Ankle-Brachial Indices: Right: 1.3 Left: 1.3 Toe Brachial Indices: Right: 0.9 Left: 0.9 IMPRESSION: Normal ankle-brachial indices
== END | disposition home or self-care (01) ==
LOC: RADCTMAIN 08:30
DX: M51.26 Other intervertebral disc displacement, lumbar region (principal); M43.16 Spondylolisthesis, lumbar region; M48.061 Spinal stenosis, lumbar region without neurogenic claudication; M99.73 Connective tissue and disc stenosis of intervertebral foramina of lumbar region
CPT/HCPCS: 72131; 93922

== ENCOUNTER → 2022-02-20 | Outpatient (CLI) | payer MEDICARE ==
[2022-02-20 15:34] LABS: Creatinine,Urine Random 34.7 mg/dL; Protein/Creatinine Ratio,Urine 0.231
[2022-02-20 19:51] LABS: Basophils # (A) 0.05 X 10*3/uL (0.00-0.10); Basophils % (A) 0.6 %; Eosinophils # (A) 0.16 X 10*3/uL (0.04-0.35); Eosinophils % (A) 1.8 %; HCT 41.6 % (39.6-50.0); HGB 13.5 g/dL (13.0-17.0); Immature Grans, Automated 0.7 %; Lymphocytes # (A) 1.65 X 10*3/uL (0.90-5.00); Lymphocytes % (A) 18.9 %; MCH 29.4 pg (27.0-32.0); MCHC 32.5 g/dL (32.0-37.0); MCV 90.6 fL (80.0-97.0); Mean Platelet Volume 11.2 fL (9.5-12.2); Monocytes # (A) 0.76 X 10*3/uL (0.20-1.00); Monocytes % (A) 8.7 %; NRBC Per 100 WBC 0 /100 WBCS (0.0-0.0); Neutrophils # (A) 6.07 X 10*3/uL (1.80-7.70); Neutrophils % (A) 69.3 %; Platelet Count 145 X 10*3/uL (140-440); RBC 4.59 X 10*6/uL (4.40-5.60); RDW 14.5 % (11.5-14.5); WBC 8.75 X 10*3/uL (4.50-10.00)
[2022-02-20 23:23] LABS: Appearance,Urine Clear (Clear); Bilirubin,Urine Negative (Negative); Blood,Urine Negative (Negative); Color,Urine Yellow (Yellow); Ketones,Urine Negative (Negative); Nitrite,Urine Negative (Negative); Specific Gravity,Urine 1.009 (1.001-1.030); Urobilinogen,Urine 0.2 (0.2,1.0)
[2022-02-21 01:15] LABS: % Iron Saturation 15.75 (15.00-50.00); Anion Gap 21.9 mmol/L (10.00-18.00); BUN/Creat Ratio 23.07 Ratio (12.00-20.00); Blood Urea Nitrogen 38.3 mg/dL (9.0-27.0); Calcium 9.5 mg/dL (8.7-10.3); Carbon Dioxide 18.7 mmol/L (20.0-27.5); Magnesium 2.2 mg/dL (1.5-2.4); Non-African American GFR(CKD) 39.7 (60.0-200.0); Phosphorus 3.5 mg/dL (2.4-5.1); Potassium 3.9 mmol/L (3.5-5.5); Uric Acid 7.2 mg/dL (3.7-8.7)
== END | disposition home or self-care (01) ==
LOC: LABWHC1 14:33
PROVIDERS: ATTEND Internal Medicine Nephrology
DX: I12.9 Hypertensive chronic kidney disease with stage 1 through stage 4 chronic kidney disease, or unspecified chronic kidney disease (principal); N18.30 Chronic kidney disease, stage 3 unspecified; E11.22 Type 2 diabetes mellitus with diabetic chronic kidney disease; D63.1 Anemia in chronic kidney disease; N25.81 Secondary hyperparathyroidism of renal origin
CPT/HCPCS: 36415; 80048; 81003; 82306; 82570; 82728; 83540; 83550; 83735; 83970; 84100; 84156; 84550; 85025

== ENCOUNTER 2022-03-20 08:18 | Day surgery (SDC) | payer MEDICARE ==
[~2022-03-20 08:18] MED LIST changes: -SODIUM CHLORIDE 0.9% 1,000 ML IV SCH; -ceFAZolin 1,000 MG in SODIUM CHLORIDE 0.9% IRRIGATIO 250 ML IRRIGATION ONE
[2022-03-20 08:37] VITALS: RESP 16; TEMP 96.7
[2022-03-20 08:49] LABS: Glucose,Whole Blood 165 mg/dL (70-110)
[2022-03-20] MEDS ORDERED: methylPREDNISolone ACETATE 40 MG/ML 1 ML VIAL ONE (09:29)
[2022-03-20] MEDS ORDERED: fentaNYL (PF) 50 MCG/ML 2 ML AMP ONE (09:29)
[2022-03-20] MEDS ORDERED: IOPAMIDOL M200 10 ML VIAL ONE (09:29)
[2022-03-20] MEDS ORDERED: MIDAZOLAM 2 MG/2 ML VIAL ONE (09:29)
[2022-03-20] MEDS ORDERED: LACTATED RINGERS 1,000 ML IV SCH (09:30)
--- NOTE | 2022-03-20 09:41 | P.PCN ---
Date of Procedure: 03/20/22 Description of Procedure: Procedure: 1. L5-S1 Epidural steroid injection under fluoroscopic guidance # 1/3 , 2. Lumbar epidurogram PREOPERATIVE DIAGNOSIS: Lumbar degenerative disc disease, and Lumbar radiculopathy. POSTOPERATIVE DIAGNOSIS: Lumbar degenerative disc disease, and Lumbar radiculopathy. SURGEON: Chandler Rodríguez ANESTHESIA: Local with 1% lidocaine, and IV sedation: Versed 2 mg, and fentanyl 100 g Sedation supervision start time: 0 9:32 Sedation supervision ended time 0 937 EBL: None. Specimen removed: None Fluoroscopic image: saved to electronic medical records PROCEDURE INDICATION: The patient had history of Lumbar degenerative disc disease and Lumbar radiculopathy. Failed to conservative therapy. Presented for epidural steroid injection. PROCEDURE DESCRIPTION: The patient was seen and identified in the preoperative area. Risks, benefits, complications, and alternatives were discussed with the patient. The patient agreed to proceed with the procedure and signed the consent. IV was started, and vital signs were stable. Patient was taken to the procedure area, and time out was completed. The patient was placed in the prone position on procedure table and a pillow was placed under the abdomen to reduce lumbar lordosis. The lumbosacral area was prepped and draped in the usual sterile fashion. Critical pause was taken. Vital signs were closely monitored during the procedure. Using anterior-posterior fluoroscopy, the L5-S1 interlaminar space was identified, and skin and deeper tissues were localized with 1% lidocaine. Using anterior-posterior fluoroscopy, lateral fluoroscopy, and [id number]-[id number] technique, a 20 gauge 3.5 Tuohy epidural needle entered the epidural space. After negative aspiration of CSF and blood with no paresthesias, 1 ml of [id number] contrast dye was injected and an excellent epidurogram was seen. Again after negative aspiration of CSF and blood with no paresthesias, 8 mL of block solution was injected into the epidural space. Block solution contained 40 mg of Depo-Medrol, and 7 mL of preservative-free normal saline. Needle was withdrawn intact, skin was cleansed, and bandages were applied. COMPLICATIONS: None. DISPOSITION / PLANS: The patient was placed in a supine position and transferred to the recovery area in a stable condition for observation. Patient was discharged from the recovery room after meeting discharge criteria. Home discharge instructions given to the patient by the staff. The patient was reexamined prior to discharge. The patient will schedule a follow up in the clinic in 4 weeks.
[2022-03-20] MEDS ORDERED: IV FLUID CONTINUATION 1,000 ML IV ONE (09:45)
--- NOTE | 2022-03-20 09:46 | FL ---
Intraoperative/procedural fluoroscopic services were provided for lumbar epidural injection. Total fl uoroscopy time is 3 seconds with a total of 2 submitted images to PACS. Please see the operative note for further details.
[2022-03-20 10:05] VITALS: BP 152/79; PULSE 57
== END 2022-03-20 10:17 | disposition home or self-care (01) ==
LOC: ORPAIN 08:18
DX: M51.16 Intervertebral disc disorders with radiculopathy, lumbar region (principal); E11.9 Type 2 diabetes mellitus without complications; I10 Essential (primary) hypertension; J44.9 Chronic obstructive pulmonary disease, unspecified; G51.0 Bell's palsy; Z79.899 Other long term (current) drug therapy; Z98.890 Other specified postprocedural states; Z95.1 Presence of aortocoronary bypass graft; Z95.0 Presence of cardiac pacemaker
CPT/HCPCS: 82565; 84520; 62323; J2250; J1030; J3010; Q9966

== ENCOUNTER → 2022-04-02 | Outpatient (CLI) | payer MEDICARE ==
[2022-04-02 08:00] VITALS: BP 139/66; PULSE 60; RESP 18; TEMP 98.2
--- NOTE | 2022-04-02 15:07 | P.PAINPG ---
PQRS Measure Charge Sheet Comment: A 76 yr old male w at side with a history of severe and chronic low back pain secondary to lumbar degenerative disc diseases and lumbar spondylosis with facet arthropathy without myelopathy presents today for evaluation s/p PILY L5-S1 #1. Pt states he experienced 75% relief x 2 wks s/p procedure. Pain level is currently at 3/10 in intensity, constant, localized in the lower lumbar spine, dull in character w shooting towards the BLEs. Pain is provoked by walking/ standing for poeriods of 150 min mor more. Pain is alleviated with PT in 2019, home exercises as tolerated, medications, topicals, cane and walker or ambulation, ice, repositioning and rest. Interventional pain procedures completed include PILY L5-S1 x1 Patient is currently on Tylenol, Lidoderm, Voltaren gel Patient denies any side effects of the medication(s), denies excessive drowsiness or sleepiness, denies suicidal ideation and reports that the current pain medication is helping to control the pain and improve activities of daily living. Patient denies any motor or sensory deficits. Patient denies any fever or night sweats, denies any change in the bowel movements or urination. Physical Examination: -Constitutional: Cooperative. Not in acute distress . - Neurologic: Cranial nerve II to XII intact. No focal neurological de ficits. - Psychatric: Alert & oriented x 3. Matching mood & appropriate affect. Judgment and insight intact. - Musculoskeletal: Cervical spine: Muscle bulk/ tone/ strength in the bilateral upper extremities normal Vertebral body tenderness to palpation over Spurling test positive Distraction test positive Facet loading test positive Thoracic spine Muscle bulk / tone/ strength in the bilateral paraspinal muscles normal Vertebral body tender to palpation over Facet loading test positive Lumbar spine: Motor bulk/ tone/ strength lower extremities , thigh and legs : 5/5 Deep tendon reflexes : Normal Knee Jerk. Normal Ankle Jerk . Vertebral body tenderness to palpation over Lumbar Facet Loading Test positive Straight Leg Raise: positive at 30 degrees right side/ left side Gaenslen's Test positive Sacral spine : Severe tenderness over the Sacroiliac joint: right side / left side Range of motion: Flexion of the lumbar spine <60 degrees Range of motion: Extension of the lumbar spine <20 degrees Gaenslen's Test positive Gary's Test positive Marcelo test: positive right side / left side Thigh Thrust Test Sacral Thrust Test Assessment and plan: Chronic low back pain secondary to lumbar degenerative disc disease , lumbar spondylosis with facet arthropathy without myelopathy Pt exhibited sufficient and satisfactory results s/p procedure. He will follow up on an as needed basis. Risks, benefits of procedure discussed and pt verbalized understanding. Denies anticoagulant use or medical history of diabetes. All patient questions answered I have spent less than 30 minutes on patient care today. Dr Hammond was available by phone for the evaluation of this patient. The time was used to review the medical records including relevant urine studies and Prescription history (MAPs), review of the available imaging, evaluation and examination of the patient, coordination of care with the medical staff and if applicable referring physicians, as well as creation of the medical record PQRS Narrative: Smoking Status Never smoker Hx Alcohol Use (MH) No Home Medications: Ambulatory Orders Metoprolol Tartrate [Lopressor] 25 mg PO TID tab 04/10/19 Tamsulosin [Flomax] 0.4 mg PO DAILY cap.er.24h 04/10/19 allopurinoL [Zyloprim] 100 mg PO BID tab 04/10/19 Apixaban [Eliquis] 2.5 mg PO BID 05/01/19 Furosemide [Lasix] 40 mg PO BID 05/01/19 Insulin Aspart [NovoLOG Flexpen] 12 units SQ AC-TID 05/01/19 Insulin Glargine,Hum.rec.anlog [Lantus Solostar Pen] 42 unit SQ QAM 05/01/19 Atorvastatin [Lipitor] 40 mg PO HS 03/21/20 Acetaminophen [Tylenol 8 Hour] 650 mg PO DAILY PRN 01/17/22 Diclofenac Sodium Gel [Voltaren Gel] 4 gm TOPICAL QID 01/17/22 Lidocaine 5% Oint [Xylocaine 5% Oint] 1 applic TOPICAL DAILY 01/17/22 Lidocaine 5% Patch [Lidoderm] 1 patch TOPICAL DAILY 01/17/22 Insulin Aspart [Insulin Aspart Flexpen] 0 unit SQ AC-TID PRN 03/19/22 Controlled Substance Measures - Controlled Substance Measures Is patient prescribed a controlled substance at discharge?: No
== END ==
LOC: PNWHC3 07:31
PROVIDERS: ATTEND Specialist
DX: M47.816 Spondylosis without myelopathy or radiculopathy, lumbar region (principal); M51.36 Other intervertebral disc degeneration, lumbar region; G89.29 Other chronic pain; Z88.2 Allergy status to sulfonamides; Z88.8 Allergy status to other drugs, medicaments and biological substances
CPT/HCPCS: 99211

== ENCOUNTER → 2022-10-29 | Outpatient (CLI) | payer MEDICARE, OTHER ==
[2022-10-29 09:59] VITALS: BP 154/67; PULSE 61; RESP 18; TEMP 98
--- NOTE | 2022-10-31 11:53 | P.PAINPG ---
PQRS Measure Charge Sheet Comment: A 76 yr old male w at side with a history of severe and chronic low back pain secondary to lumbar degenerative disc diseases and lumbar spondylosis with facet arthropathy without myelopathy presents today for evaluation for LBP. Pain level is currently at 8/10 in intensity, constant, localized in the lower lumbar spine, dull in character w shooting towards the BLEs. Pain is provoked by walking/ standing for periods of 15 min or more. Pain is alleviated with PT in 2020 which provoked pain, home exercises as tolerated, medications, topicals, cane and walker or ambulation, ice, hot showers, repositioning and rest. Interventional pain procedures completed include PILY L5-S1 x1 Patient is currently on Tylenol, Lidoderm, Voltaren gel Patient denies any side effects of the medication(s), denies excessive drowsiness or sleepiness, denies suicidal ideation and reports that the current pain medication is helping to control the pain and improve activities of daily living. Patient denies any motor or sensory deficits. Patient denies any fever or night sweats, denies any change in the bowel movements or urination. Physical Examination: -Constitutional: Cooperative. Not in acute distress . - Neurologic: Cranial nerve II to XII intact. No focal neurological deficits. - Psychatric: Alert & oriented x 3. Matching mood & appropriate affect. Judgment and insight intact. - Musculoskeletal: Cervical spine: Muscle bulk/ tone/ strength in the bilateral upper extremities normal Vertebral body tenderness to palpation over Spurling test positive Distraction test positive Facet loading test positive Thoracic spine Muscle bulk / tone/ strength in the bilateral paraspinal muscles normal Vertebral body tender to palpation over Facet loading test positive Lumbar spine: Motor bulk/ tone/ strength lower extremities , thigh and legs : 5/5 Deep tendon reflexes : Normal Knee Jerk. Normal Ankle Jerk . Vertebral body tenderness to palpation over L4 + Blancas Test Positive Lumbar Facet Loading Test positive Straight Leg Raise: positive at 30 degrees right side/ left side Gaenslen's Test positive Sacral spine : Severe tenderness over the Sacroiliac joint: right side / left side Range of motion: Flexion of the lumbar spine <60 degrees Range of motion: Extension of the lumbar spine <20 degrees Gaenslen's Test positive Gary's Test positive Marcelo test: positive right side / left side Thigh Thrust Test Sacral Thrust Test Assessment and plan: Chronic low back pain secondary to lumbar degenerative disc disease , lumbar spondylosis with facet arthropathy without myelopathy Recommendation of PILY L4-5. May need a series of injections for optimal pain relief. Risks, benefits of procedure discussed and pt verbalized understanding. Protocol for discontinuation/ continuatin of anticoagulants and diabetic meds discussed and pt verbalized understanding. All patient questions answered I have spent less than 30 minutes on patient care today. Dr Hammond was available by phone for the evaluation of this patient. The time was used to review the medical records including relevant urine studies and Prescription history (MAPs), review of the available imaging, evaluation and examination of the patient, coordination of care with the medical staff and if applicable referring physicians, as well as creation of the medical record PQRS Narrative: Smoking Status Never smoker Hx Alcohol Use (MH) No Home Medications: Ambulatory Orders Metoprolol Tartrate [Lopressor] 25 mg PO TID tab 04/10/19 Tamsulosin [Flomax] 0.4 mg PO DAILY cap.er.24h 04/10/19 allopurinoL [Zyloprim] 100 mg PO BID tab 04/10/19 Apixaban [Eliquis] 2.5 mg PO BID 05/01/19 Furosemide [Lasix] 40 mg PO BID 05/01/19 Insulin Aspart [NovoLOG Flexpen] 12 units SQ AC-TID 05/01/19 Insulin Glargine,Hum.rec.anlog [Lantus Solostar Pen] 42 unit SQ QAM 05/01/19 Atorvastatin [Lipitor] 40 mg PO HS 03/21/20 Acetaminophen [Tylenol 8 Hour] 650 mg PO DAILY PRN 01/17/22 Diclofenac Sodium Gel [Voltaren Gel] 4 gm TOPICAL QID 01/17/22 Lidocaine 5% Oint [Xylocaine 5% Oint] 1 applic TOPICAL DAILY 01/17/22 Lidocaine 5% Patch [Lidoderm] 1 patch TOPICAL DAILY 01/17/22 Insulin Aspart [Insulin Aspart Flexpen] 0 unit SQ AC-TID PRN 03/19/22 Controlled Substance Measures - Controlled Substance Measures Is patient prescribed a controlled substance at discharge?: No
== END ==
LOC: PNWHC3 08:11
PROVIDERS: ATTEND Specialist
DX: M51.36 Other intervertebral disc degeneration, lumbar region (principal); M47.816 Spondylosis without myelopathy or radiculopathy, lumbar region; G89.29 Other chronic pain; Z88.8 Allergy status to other drugs, medicaments and biological substances; Z88.2 Allergy status to sulfonamides
CPT/HCPCS: 99211

== ENCOUNTER 2022-11-22 08:14 | Day surgery (SDC) | payer OTHER ==
[2022-11-22 08:38] VITALS: TEMP 97.9
[2022-11-22 08:49] LABS: Glucose,Whole Blood 203 mg/dL (70-110)
[2022-11-22] MEDS ORDERED: IOPAMIDOL M200 10 ML VIAL ONE (09:37)
[2022-11-22] MEDS ORDERED: methylPREDNISolone ACETATE 40 MG/ML 1 ML VIAL ONE (09:37)
--- NOTE | 2022-11-22 09:43 | P.PCN ---
Date of Procedure: 11/22/22 Procedure(s) Performed: PREOPERATIVE DIAGNOSIS: 1- Lumbar Degenerative Disc Diseases 2-Lumbar spondylosis with Facet arthropathy without myelopathy. 3-lumbar radiculopathy.. POSTOPERATIVE DIAGNOSIS: 1-lumbar degenerative disc disease. 2-lumbar spondylosis with facet arthropathy without myelopathy. 3-lumbar radiculopathy PROCEDURE 1. Lumbar epidural steroid injection under fluoroscopic guidance at the L4-5 level. (Fluoroscopy imaging was available in radiology department) 2. Lumbar epidurogram. ANESTHESIA: Lidocaine 1% 3 and then only. EBL: Minimal PROCEDURE INDICATION: The patient with low back pain and radiculitis symptoms unresponsive to conservative treatment. Fluoroscopy was used to optimize visualization of the needle placement and to maximize safety. PROCEDURE DESCRIPTION / TECHNIQUE: The patient was seen and identified in the preoperative area. Risks, benefits, complications including but not limited to infections ,bleeding ,allergic reaction to the medications ,nerve damage and not complete pain releife , and alternatives were discussed with the patient. The patient agreed to proceed with the procedure and signed the consent. IV was started, and vital signs were stable. Patient was taken to the OR and time out was completed. The patient was placed in the prone position on procedure table and a pillow was placed under the abdomen to reduce lumbar lordosis. The lumbosacral area was prepped and draped in the usual sterile fashion.ere closely monitored during the procedure. Vital signs was monitered during the entire procedure. Using anterior-posterior fluoroscopy, the L4-5 interlaminar space was identified and the skin over this site was marked and then infiltrated with 1% lidocaine subcutaneously. Subsequently, a 20-gauge Tuohy epidural needle was inserted and advanced toward the epidural space using the ``Loss of resistance technique and guided by AP and lateral fluoroscopy. The correct needle position in the epidural space was verified with the injection of 2 mL of the water soluble contrast dye Isovue 200 contrast and observing an excellent epidurogram with the epidural spread of the dye, after negative aspiration for blood and CSF and in the absence of paresthesias. Again after negative aspiration, a 6 ml mixture containing 40 mg of Depo-medrol ( Preservetive Free ), and 2 ml of preservative free Normal Saline, and 2 ml of preservative free lidocaine 1% solution was injected and a washout of epidurogram was seen. Needle was withdrawn intact, skin was cleansed, and bandages were applied. COMPLICATIONS: None DISPOSITION / PLANS: The patient was placed in a supine position and transferred to the recovery area in a stable condition for observation. There was no evidence of lower extremity motor or sensory deficit after the procedure. Patient was discharged from the recovery room after meeting discharge criteria. Home discharge instructions were given to the patient by the staff. The patient was reexamined prior to discharge. The patient will schedule a follow up in the clinic in 2-4 weeks.
[2022-11-22 09:50] VITALS: RESP 20
--- NOTE | 2022-11-22 09:54 | FL ---
Intraoperative/procedural fluoroscopic services were provided for lumbar epidural steroid injection. Total fluoroscopy time is 1.7 seconds with a total of 1 submitted image to PACS. Total DAP [id number] mG ym2. Please see the operative note for further details.
[2022-11-22 10:07] VITALS: BP 118/64; PULSE 64
[2022-11-22 10:12] LABS: Glucose,Whole Blood 162 mg/dL (70-110)
== END 2022-11-22 10:15 ==
LOC: ORPAIN 08:14
PROVIDERS: ATTEND Specialist
DX: M51.16 Intervertebral disc disorders with radiculopathy, lumbar region (principal); M47.26 Other spondylosis with radiculopathy, lumbar region; Z88.9 Allergy status to unspecified drugs, medicaments and biological substances
CPT/HCPCS: 62323; J1030; Q9966

== ENCOUNTER → 2022-12-19 | Outpatient (CLI) | payer OTHER ==
[2022-12-19 08:47] VITALS: BP 146/68; PULSE 64; RESP 16; TEMP 97.8
--- NOTE | 2022-12-19 13:38 | P.PAINPG ---
PQRS Measure Charge Sheet Comment: A 76 yr old male w at side with a history of severe and chronic low back pain secondary to lumbar degenerative disc diseases and lumbar spondylosis with facet arthropathy without myelopathy presents today for evaluation s/p PILY L4-L5 #1. Pt states he experienced 35% pain relief x 3 days s/p procedure. Pain level is currently at 7/10 in intensity, constant, localized in the lower lumbar spine above the tailbone, dull in character w shooting the hips. Pain is provoked by sitting of 20 min or more. Pain is alleviated with PT in 2020 which provoked pain, home exercises as tolerated, medications, topicals, cane and walker or ambulation, ice, hot showers, repositioning and rest. Oswestry axial pain score of 27. Interventional pain procedures completed include PILY L5-S1 x1, L4-L5 x1 Patient is currently on Tylenol, Lidoderm, Voltaren gel Patient denies any side effects of the medication(s), denies excessive drowsiness or sleepiness, denies suicidal ideation and reports that the current pain medication is helping to control the pain and improve activities of daily living. Patient denies any motor or sensory deficits. Patient denies any fever or night sweats, denies any change in the bowel movements or urination. Physical Examination: -Constitutional: Cooperative. Not in acute distress . - Neurologic: Cranial nerve II to XII intact. No focal neurological deficits. - Psychatric: Alert & oriented x 3. Matching mood & appropriate affect. Judgment and insight intact. - Musculoskeletal: Cervical spine: Muscle bulk/ tone/ strength in the bilateral upper extremities normal Vertebral body tenderness to palpation over Spurling test positive Distraction test positive Facet loading test positive Thoracic spine Muscle bulk / tone/ strength in the bilateral paraspinal muscles normal Vertebral body tender to palpation over Facet loading test positive Lumbar spine: Motor bulk/ tone/ strength lower extremities , thigh and legs : 5/5 Deep tendon reflexes : Normal Knee Jerk. Normal Ankle Jerk . Vertebral body tenderness to palpation + Blancas Test Positive Lumbar Facet Loading Test positive Straight Leg Raise: positive at 30 degrees right side/ left side Gaenslen's Test positive Sacral spine : Severe tenderness over the Sacroiliac joint: right side / left side Range of motion: Flexion of the lumbar spine <60 degrees Range of motion: Extension of the lumbar spine <20 degrees Gaenslen's Test positive BL Marcelo test: positive right side / left side Thigh Thrust Test BL Sacral Thrust Test positive Assessment and plan: Chronic low back pain secondary to lumbar degenerative disc disease , lumbar spondylosis with facet arthropathy without myelopathy, BL Sacroiliitis Recommendation of BL SI injections. May need a series of injections for optimal pain relief. Risks, benefits of procedure discussed and pt verbalized understanding. Protocol for discontinuation/ continuatin of anticoagulants and diabetic meds discussed and pt verbalized understanding. All patient questions answered I have spent less than 30 minutes on patient care today. Dr Hammond was available by phone for the evaluation of this patient. The time was used to review the medical records including relevant urine studies and Prescription history (MAPs), review of the available imaging, evaluation and examination of the patient, coordination of care with the medical staff and if applicable referring physicians, as well as creation of the medical record PQRS Narrative: Smoking Status Never smoker Hx Alcohol Use (MH) No Home Medications: Ambulatory Orders Metoprolol Tartrate [Lopressor] 25 mg PO TID tab 04/10/19 allopurinoL [Zyloprim] 100 mg PO BID tab 04/10/19 Apixaban [Eliquis] 2.5 mg PO BID 05/01/19 Furosemide [Lasix] 40 mg PO BID 05/01/19 Insulin Aspart [NovoLOG Flexpen] 12 units SQ AC-TID 05/01/19 Insulin Glargine,Hum.rec.anlog [Lantus Solostar Pen] 42 unit SQ QAM 05/01/19 Atorvastatin [Lipitor] 40 mg PO HS 03/21/20 Acetaminophen [Tylenol 8 Hour] 650 mg PO DAILY PRN 01/17/22 Diclofenac Sodium Gel [Voltaren Gel] 4 gm TOPICAL QID 01/17/22 Lidocaine 5% Patch [Lidoderm] 1 patch TOPICAL DAILY 01/17/22 Insulin Aspart [Insulin Aspart Flexpen] 0 unit SQ AC-TID PRN 03/19/22 Ranolazine(Unk) 500 mg PO BID 11/20/22 Tamsulosin [Flomax] 0.8 mg PO DAILY 11/20/22 lisinopriL 2.5 mg PO DAILY 11/20/22 Controlled Substance Measures - Controlled Substance Measures Is patient prescribed a controlled substance at discharge?: No
== END ==
LOC: PNWHC3 08:03
PROVIDERS: ATTEND Specialist
DX: M51.36 Other intervertebral disc degeneration, lumbar region (principal); M47.816 Spondylosis without myelopathy or radiculopathy, lumbar region; G89.29 Other chronic pain; Z88.8 Allergy status to other drugs, medicaments and biological substances; Z88.2 Allergy status to sulfonamides
CPT/HCPCS: 99211

== ENCOUNTER 2023-01-10 07:10 | Day surgery (SDC) | payer OTHER ==
[2023-01-10 07:36] VITALS: TEMP 97.1
[2023-01-10 07:46] LABS: Glucose,Whole Blood 204 mg/dL (70-110)
[2023-01-10] MEDS ORDERED: methylPREDNISolone ACETATE 40 MG/ML 1 ML VIAL ONE (07:55)
[2023-01-10] MEDS ORDERED: IOPAMIDOL M200 10 ML VIAL ONE (07:55)
[2023-01-10] MEDS ORDERED: ROPIVACAINE 5 MG/ML 20 ML AMPULE ONE (07:55)
--- NOTE | 2023-01-10 08:04 | P.PCN ---
Date of Procedure: 01/10/23 Procedure(s) Performed: Procedure= bilateral sacroiliac joints steroid injection under fluoroscopy guidance (fluoroscopy image stored on file in the radiology Department ) Preoperative diagnosis= 1-sacroiliitis 2-lumbar degenerative disc disease 3- lumbar facet arthropathy Postoperative diagnosis=Same as preop Diagnosis . Complication = none Condition= stable Anesthesia= local anesthesia with ropivacaine 0.5% 4 ml only Indication for the procedure= patient complaining of low back pain , examination was positive for severe tenderness over the sacroiliac joints bilaterally and patient diagnosed with sacroiliitis, for this reason he/ she was good candidate for sacroiliac joint steroid injection. Description of the procedure= procedure risk and benefits discussed with the patient, including but not limited, risk of infection and bleeding, and ALLERGIC reaction to the medication and not complete pain relief and patient agreed with the preceding patient taken to the operating room, placed in prone position or standard monitors applied to the patient then after induction of anesthesia back prepped with chlorhexidine 3 times , Then under strict sterile technique, first I did the right sacroiliac joint the which was identified under fluoroscopy guidance been local infiltration of the skin and subcu interstitial with lidocaine 1% then 22-gauge Quincke Needle advanced slowly under fluoroscopy and placed in the right sacroiliac joint needle placement confirmed with AP and oblique and lateral view, then after that Isovue 200 one mL injected which confirmed the correct needle placement with the appropriate arthrogram of the sacroiliac joint, and after appropriate needle placement confirmed and after negative aspiration, or heme , then Ropivacaine 0.5% 2 mL, and 20 mg of Depo-Medrol mixed together and injected in the right sacroiliac joint after negative aspiration patient tolerated the procedure well without any complication. Then the left sacroiliac joint steroid injection done under strict sterile technique local infiltration of the skin and subcu interstitial at the location of the left sacroiliac joint then a 22-gauge Quincke Needle advanced slowly under fluoroscopy time placed in the left sacroiliac joint, needle placement confirmed with AP and oblique and lateral view then after appropriate needle placement confirmed, with the AP and oblique and lateral then after negative aspiration Isovue 200 1 mL injected showed arthropathy of the left sacroiliac joint, and after negative aspiration 0.5% Ropivacaine 2 mL and 20 mg of Depo- Medrol injected in the left sacroiliac joint after negative aspiration patient tolerated the procedure well that any complications and she will follow up in clinic 3 weeks
[2023-01-10 08:13] VITALS: BP 129/63; PULSE 61; RESP 18
--- NOTE | 2023-01-10 08:41 | FL ---
Intraoperative/procedural fluoroscopic services were provided. Total fluoroscopy time is 22.6 seconds with a total of 2 submitted images to PACS. Please see the operative/procedural note for further det ails. DAP: 0.15 mGym2
== END 2023-01-10 08:35 | disposition home or self-care (01) ==
LOC: ORPAIN 07:10
PROVIDERS: ATTEND Specialist
DX: M46.1 Sacroiliitis, not elsewhere classified (principal); M51.36 Other intervertebral disc degeneration, lumbar region; M47.816 Spondylosis without myelopathy or radiculopathy, lumbar region; Z79.899 Other long term (current) drug therapy
CPT/HCPCS: 27096; J1030; Q9966; J2795

== ENCOUNTER → 2023-02-07 | Outpatient (CLI) | payer OTHER ==
--- NOTE | 2023-02-07 15:53 | P.PAINPG ---
PQRS Measure Charge Sheet Comment: A 76 yr old male w at side with a history of severe and chronic low back pain secondary to lumbar degenerative disc diseases and lumbar spondylosis with facet arthropathy without myelopathy presents today for evaluation s/p BL SI injection. Pt states he experienced 0% pain relief s/p procedure. Pain level is currently at 6/10 in intensity, constant, localized in the lower lumbar spine above the tailbone, dull in character w shooting the hips. Pain is provoked by sitting of 20 min or more. Pain is alleviated with PT in 2020 which provoked pain, physician guided home exercises multiple times weekly as tolerated, medications, topicals, cane and walker or ambulation, ice, hot showers, repositioning and rest. Oswestry axial pain score of 29. Interventional pain procedures completed include PILY L5-S1 x1, L4-L5 x1, BL SI x1 Patient is currently on Tylenol, Lidoderm, Voltaren gel Patient denies any side effects of the medication(s), denies excessive drowsiness or sleepiness, denies suicidal ideation and reports that the current pain medication is helping to control the pain and improve activities of daily living. Patient denies any motor or sensory deficits. Patient denies any fever or night sweats, denies any change in the bowel movements or urination. Physical Examination: -Constitutional: Cooperative. Not in acute distress . - Neurologic: Cranial nerve II to XII intact. No focal neurological deficits. - Psychatric: Alert & oriented x 3. Matching mood & appropriate affect. Judgment and insight intact. - Musculoskeletal: Cervical spine: Muscle bulk/ tone/ strength in the bilateral upper extremities normal Vertebral body tenderness to palpation over Spurling test positive Distraction test positive Facet loading test positive Thoracic spine Muscle bulk / tone/ strength in the bilateral paraspinal muscles normal Vertebral body tender to palpation over Facet loading test positive Lumbar spine: Motor bulk/ tone/ strength lower extremities , thigh and legs : 5/5 Deep tendon reflexes : Normal Knee Jerk. Normal Ankle Jerk . Vertebral body tenderness to palpation + Blancas Test Positive Taut bands w twitch response over BL L2-S1 Lumbar Facet Loading Test positive Straight Leg Raise: positive at 30 degrees right side/ left side Gaenslen's Test positive Sacral spine : Severe tenderness over the Sacroiliac joint: right side / left side Range of motion: Flexion of the lumbar spine <60 degrees Range of motion: Extension of the lumbar spine <20 degrees Gaenslen's Test positive BL Marcelo test: positive right side / left side Thigh Thrust Test BL Sacral Thrust Test positive Assessment and plan: Chronic low back pain secondary to lumbar degenerative disc disease , lumbar spondylosis with facet arthropathy without myelopathy, BL Sacroiliitis Recommendation of BL TPIs L2-S1. May need a series of injections for optimal pain relief. Risks, benefits of procedure discussed and pt verbalized understanding. Protocol for discontinuation/ continuatin of anticoagulants and diabetic meds discussed and pt verbalized understanding. All patient questions answered I have spent less than 30 minutes on patient care today. Dr Hammond was available by phone for the evaluation of this patient. The time was used to review the medical records including relevant urine studies and Prescription history (MAPs), review of the available imaging, evaluation and examination of the patient, coordination of care with the medical staff and if applicable referring physicians, as well as creation of the medical record PQRS Narrative: Smoking Status Never smoker Hx Alcohol Use (MH) No Home Medications: Ambulatory Orders Metoprolol Tartrate [Lopressor] 25 mg PO TID tab 04/10/19 allopurinoL [Zyloprim] 100 mg PO BID tab 04/10/19 Apixaban [Eliquis] 2.5 mg PO BID 05/01/19 Furosemide [Lasix] 40 mg PO BID 05/01/19 Insulin Aspart [NovoLOG Flexpen] 12 units SQ AC-TID 05/01/19 Insulin Glargine,Hum.rec.anlog [Lantus Solostar Pen] 42 unit SQ QAM 05/01/19 Atorvastatin [Lipitor] 40 mg PO HS 03/21/20 Acetaminophen [Tylenol 8 Hour] 650 mg PO Q8H PRN 01/17/22 Diclofenac Sodium Gel [Voltaren Gel] 4 gm TOPICAL QID PRN 01/17/22 Lidocaine 5% Patch [Lidoderm] 1 patch TOPICAL DAILY PRN 01/17/22 Insulin Aspart [Insulin Aspart Flexpen] 0 unit SQ AC-TID PRN 03/19/22 Tamsulosin [Flomax] 0.8 mg PO BID 11/20/22 lisinopriL 2.5 mg PO QAM 11/20/22 Controlled Substance Measures - Controlled Substance Measures Is patient prescribed a controlled substance at discharge?: Yes If prescribed controlled substance>3 days was MAPS reviewed?: Prescribed <3 Days
[2023-02-07 16:00] VITALS: BP 149/70; PULSE 66; RESP 16; TEMP 98.8
== END ==
LOC: PNWHC3 07:37
PROVIDERS: ATTEND Specialist
DX: M51.37 Other intervertebral disc degeneration, lumbosacral region (principal); M47.817 Spondylosis without myelopathy or radiculopathy, lumbosacral region; G89.29 Other chronic pain; M46.1 Sacroiliitis, not elsewhere classified; Z88.8 Allergy status to other drugs, medicaments and biological substances; Z88.2 Allergy status to sulfonamides
CPT/HCPCS: 99211

== ENCOUNTER 2023-03-05 09:58 | Day surgery (SDC) | payer OTHER ==
[2023-03-05 10:33] LABS: Glucose,Whole Blood 155 mg/dL (70-110)
[2023-03-05 10:36] VITALS: TEMP 97
[2023-03-05] MEDS ORDERED: TRIAMCINOLONE ACETONIDE 40 MG/ML 1 ML VIAL ONE (10:51)
[2023-03-05] MEDS ORDERED: ROPIVACAINE 5MG/ML 20ML VIAL ONE (10:51)
--- NOTE | 2023-03-05 11:01 | P.PCN ---
Date of Procedure: 03/05/23 Description of Procedure: Pre and postop diagnosis: Myofascial pain syndrome Procedure: Trigger point injections X 9 Muscle group X Bilateral lumbar paraspinal muscles, and iliocostal lumborum muscle Surgeon: Chandler Rodríguez Anesthesia: None Complications: None Estimated blood loss: None Specimen removed: None Procedure indications: Patient had a history of myofascial pain syndrome. Patient tried conservative therapy. Came here for intervention procedure for better pain relief. Procedure description: Patient was seen and identified in the holding area risk benefits competitions alternative discussed with the patient. Patient agreed to proceed for the procedure signed the consent. Patient taken to the procedure area. Timeout was completed. A total number of 9 - trigger point area was marked with a sterile marker. After ChloraPrep used to clean the area. Critical pause was taken. Using 25-gauge 1-1/2 inch needle. Needle entered in each market site 1.5 mL of block solution injected at each level. The block solution containing 15 ml of 0.5% preservative-free ropivacaine with Kenlog 40 MG. Needle removed intact skin cleaned and Band-Aid applied. Patient tolerated the procedure well. Disposition: Patient discharge home after meeting the discharge criteria from the recovery. Patient scheduled to follow up with the pain clinic in 4 weeks for follow-up visit.
[2023-03-05 11:25] VITALS: BP 134/70; PULSE 59; RESP 18
== END 2023-03-05 11:28 | disposition home or self-care (01) ==
LOC: ORPAIN 09:58
DX: M79.18 Myalgia, other site (principal); I10 Essential (primary) hypertension; E11.9 Type 2 diabetes mellitus without complications; I25.10 Atherosclerotic heart disease of native coronary artery without angina pectoris; M10.9 Gout, unspecified; Z79.01 Long term (current) use of anticoagulants; Z79.899 Other long term (current) drug therapy; Z88.2 Allergy status to sulfonamides; Z88.8 Allergy status to other drugs, medicaments and biological substances
CPT/HCPCS: 20553; J3301; J2795

== ENCOUNTER → 2023-04-04 | Outpatient (CLI) | payer OTHER ==
[2023-04-04 08:54] VITALS: BP 137/74; PULSE 87; RESP 15; TEMP 98.4
--- NOTE | 2023-04-04 14:56 | P.PAINPG ---
PQRS Measure Charge Sheet Comment: A 76 yr old male w at side with a history of severe and chronic low back pain secondary to lumbar degenerative disc diseases and lumbar spondylosis with facet arthropathy without myelopathy presents today for evaluation s/p BL TPIs L2-S1. Pt states he experienced 80% pain relief x 4 wks s/p procedure. Pain level is currently at 3/10 in intensity, constant, localized in the upper back w shooting pain towards the shoulder and ribs. Pt fell 1 wk ago which provoked these symptoms. Pain is provoked by walking/ standing for periods of 20 min or more. Pain is alleviated with PT in 2020 which provoked pain, physician guided home exercises multiple times weekly as tolerated, medications, topicals, cane and walker or ambulation, ice, hot showers, repositioning and rest. Oswestry axial pain score of 27. Interventional pain procedures completed include PILY L5-S1 x1, L4-L5 x1, BL SI x1 Patient is currently on Tylenol, Lidoderm, Voltaren gel Patient denies any side effects of the medication(s), denies excessive drowsiness or sleepiness, denies suicidal ideation and reports that the current pain medication is helping to control the pain and improve activities of daily living. Patient denies any motor or sensory deficits. Patient denies any fever or night sweats, denies any change in the bowel movements or urination. Physical Examination: -Constitutional: Cooperative. Not in acute distress . - Neurologic: Cranial nerve II to XII intact. No focal neurological deficits. - Psychatric: Alert & oriented x 3. Matching mood & appropriate affect. Judgment and insight intact. - Musculoskeletal: Cervical spine: Muscle bulk/ tone/ strength in the bilateral upper extremities normal Vertebral body tenderness to palpation over Spurling test positive Distraction test positive Facet loading test positive Thoracic spine Muscle bulk / tone/ strength in the bilateral paraspinal muscles normal Vertebral body tender to palpation over Facet loading test positive Lumbar spine: Motor bulk/ tone/ strength lower extremities , thigh and legs : 5/5 Deep tendon reflexes : Normal Knee Jerk. Normal Ankle Jerk . Vertebral body tenderness to palpation + Blancas Test Positive Taut bands w twitch response over BL L2-S1 Lumbar Facet Loading Test positive Straight Leg Raise: positive at 30 degrees right side/ left side Gaenslen's Test positive Sacral spine : Severe tenderness over the Sacroiliac joint: right side / left side Range of motion: Flexion of the lumbar spine <60 degrees Range of motion: Extension of the lumbar spine <20 degrees Gaenslen's Test positive BL Marcelo test: positive right side / left side Thigh Thrust Test BL Sacral Thrust Test positive Assessment and plan: Chronic low back pain secondary to lumbar degenerative disc disease , lumbar spondylosis with facet arthropathy without myelopathy, BL Sacroiliitis Recommendation of medication management w Diclofenac gel apply to AA BID for pain w 1 RF. Will be in [place] for 6mo starting next week and want to continue managing care there. All patient questions answered I have spent less than 30 minutes on patient care today. Dr Hammond was available by phone for the evaluation of this patient. The time was used to review the medical records including relevant urine studies and Prescription history (MAPs), review of the available imaging, evaluation and examination of the patient, coordination of care with the medical staff and if applicable referring physicians, as well as creation of the medical record PQRS Narrative: Smoking Status Never smoker Hx Alcohol Use (MH) No Home Medications: Ambulatory Orders Metoprolol Tartrate [Lopressor] 25 mg PO TID tab 04/10/19 allopurinoL [Zyloprim] 100 mg PO BID tab 04/10/19 Apixaban [Eliquis] 2.5 mg PO BID 05/01/19 Furosemide [Lasix] 40 mg PO BID 05/01/19 Insulin Aspart [NovoLOG Flexpen] 12 units SQ AC-TID 05/01/19 Insulin Glargine,Hum.rec.anlog [Lantus Solostar Pen] 42 unit SQ QAM 05/01/19 Atorvastatin [Lipitor] 40 mg PO HS 03/21/20 Acetaminophen [Tylenol 8 Hour] 650 mg PO Q8H PRN 01/17/22 Diclofenac Sodium Gel [Voltaren Gel] 4 gm TOPICAL QID PRN 01/17/22 Lidocaine 5% Patch [Lidoderm] 1 patch TOPICAL DAILY PRN 01/17/22 Insulin Aspart [Insulin Aspart Flexpen] 0 unit SQ AC-TID PRN 03/19/22 Tamsulosin [Flomax] 0.8 mg PO BID 11/20/22 lisinopriL 2.5 mg PO QAM 11/20/22 diazePAM [Valium] 5 mg PO Q24H PRN 1 Days #2 tab 02/07/23 Controlled Substance Measures - Controlled Substance Measures Is patient prescribed a controlled substance at discharge?: No
== END ==
LOC: PNWHC3 07:51
PROVIDERS: ATTEND Specialist
DX: M51.37 Other intervertebral disc degeneration, lumbosacral region (principal); M47.817 Spondylosis without myelopathy or radiculopathy, lumbosacral region; G89.29 Other chronic pain; Z88.1 Allergy status to other antibiotic agents; Z88.8 Allergy status to other drugs, medicaments and biological substances; Z88.2 Allergy status to sulfonamides
CPT/HCPCS: 99211

== ENCOUNTER → 2024-03-30 | Outpatient (CLI) | payer OTHER ==
--- NOTE | 2024-03-30 10:54 | CT ---
EXAMINATION TYPE: CT lumbar spine wo con CT DLP: 1701.1 mGycm, Automated exposure control for dose reduction was used. DATE OF EXAM: 03/30/2024 10:31 AM COMPARISON: CT lumbar spine 12/15/2021. CLINICAL INDICATION:Male, 78 years old with history of M54.50 low back pain; PHH, low back pain xyear s. no hx of back sx TECHNIQUE: Multiple axial images were obtained from the midportion of T11 through the sacroiliac olman nts. Soft tissue and bone windows in coronal and sagittal planes were obtained and reviewed. Contrast used: none. Oral contrast used: none. FINDINGS: Alignment: There are 5 lumbar type vertebral bodies. Mild retrolisthesis of L3 on L4 without evidence of pars defects. Minimal levoscoliotic curvature of the lumbar spine. Bone: No evidence of fracture is identified. Subchondral cystic changes within both iliac bones abut ting the SI joints. 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 Multilevel degenerative disc disease wit h vacuum disc disease, endplate sclerosis, disc space narrowing and anterior osteophytosis. This is m ost pronounced at L3-L4. Incidental benign vertebral hemangioma within the L2 vertebral body. Discs: T12-L1: No spinal canal or neural foraminal stenosis is identified. L1-L2: No spinal canal or neural foraminal stenosis is identified. L2-L3: Broad-based disc bulge without significant effacement of the anterior thecal sac. Bilateral fa cet arthropathy. Mild left neural foraminal narrowing. The right neural foramen is patent. L3-L4: Calcified broad-based disc bulge with right paracentral calcified disc protrusion. Bilateral facet arthropathy bilaterally and right ligamentum flavum buckling contributes to moderate spinal can al stenosis. Mild to moderate left and moderate right neuroforaminal stenosis. L4-L5: Calcified broadbase disc bulge. There is facet arthropathy bilaterally with ligamentum flavum buckling contributing to and moderate spinal canal stenosis. Moderate bilateral neural foraminal radhika nosis. L5-S1: Calcified broad-based disc bulge without significant spinal canal stenosis. Bilateral facet ar thropathy. There is mild to moderate bilateral neural foraminal stenosis. Other: Atherosclerotic calcification of the aorta and its branches. Stable right adrenal myelolipoma measuring up to 3.3 cm. IMPRESSION: 1. No evidence of acute fracture of the lumbar spine. 2. Moderate multilevel degenerative disc disease and facet arthropathy as described above. Slightly p rogressed from prior exam. 3. Mild retrolisthesis of L3 on L4. [facility], , 03/30/2024 10:52 AM
== END | disposition home or self-care (01) ==
LOC: RADCTMAIN 08:37
PROVIDERS: ATTEND Family Medicine
DX: M51.369 Other intervertebral disc degeneration, lumbar region without mention of lumbar back pain or lower extremity pain (principal); M47.816 Spondylosis without myelopathy or radiculopathy, lumbar region; M43.16 Spondylolisthesis, lumbar region
CPT/HCPCS: 72131